=== PATIENT | female | born 1995 | race Caucasian/White ===

== ENCOUNTER 2020-03-13 12:29 | Emergency (ER) | payer MEDICAID, SELFPAY ==
[2020-03-13 12:31] VITALS: BP 119/76; PULSE 108; RESP 16; TEMP 36.2; O2SAT 98; BMI 28.3
--- NOTE | 2020-03-13 13:00 | RAD_ITS ---
STUDY: X-RAY CHEST REASON FOR EXAM: Female, 24 years old. COUGH SINCE YESTERDAY. CURRENT SMOKER. TECHNIQUE: Single AP portable view of the chest. COMPARISON: None. FINDINGS: The lungs are clear and expanded. There is no demonstrated pleural abnormality. Normal size heart. Normal mediastinum and farida. Normal visualized pulmonary arteries. Normal visualized aortic arch and descending thoracic aorta. Normal visualized thoracic spine. Normal visualized ribs, clavicles, and shoulders. There is no demonstrated abnormality of the visualized soft tissue structures of the upper abdomen. RAD/Chest 1 View (Portable) IMPRESSION: Normal x-ray examination of the chest. Pending Final Proof Editing
--- NOTE | 2020-03-13 13:11 | ED.VISSUMM ---
- ER Visit Summary Date of Service: 03/13/20 Chief Complaint: Cough History of Present Illness: The patient is a 24 F who presents with a cough that began yesterday. Patient states she is coughing up some yellow sputum. Patient admits to some general myalgias. Patient denies any fevers or chills. Patient states her foreign service officer told her to come to the emergency department to get checked out. Patient is not concerned about COVID-19. Patient denies any nausea or vomiting. Patient denies any chest pain or shortness of breath. Physical Examination: Vital signs are stable. Patient is afebrile. Patient is in no acute distress. Oral mucosa is pink and moist. Neck is supple. Trachea is midline. There is no JVD. Heart was regular rate and rhythm. Lungs showed rhonchi in the right base. There is good respiratory effort noted. Abdomen is soft. Bowel sounds are normal. There is no tenderness. Cranial nerves II through XII are intact. There are no focal motor or sensory deficits noted. Test Results: Portable chest x-ray was obtained. There is no acute cardiopulmonary process. This was interpreted by the radiologist and myself. Emergency Department Course and Treatment: Patient was advised that this is a viral upper respiratory infection. Patient was instructed to wear her mask covering her nose and mouth. Patient was instructed to follow-up with her primary care physician in 5 to 7 days. Patient was instructed drink plenty of fluids. Patient was instructed to take Tylenol or ibuprofen as needed for any fevers. Patient was instructed return if worse in any way. Patient understood and was agreeable with the plan. All questions were answered. Disposition: Discharge home Impression: Viral upper respiratory infection This note was generated with [employer] dictation software. It may contain incorrect words, spelling, and punctuation that were not noted in review of the chart prior to signing ED Disposition - Plan for ED Patient: Disposition: Home or Assisted Living Diagnosis: Viral upper respiratory tract infection with cough Instructions: ED URI Viral Referrals: Care Physician,No Primary [Primary Care Provider] -
--- NOTE | 2020-03-13 14:00 | ED.RN ---
per patient okay to fax excuse saying she was seen at [facility] to Nelda, chief security and safety officer at [phone].
== END 2020-03-13 13:59 | disposition home or self-care (01) ==
PROVIDERS: Emergency Provider Emergency Medicine
DX: J06.9 Acute upper respiratory infection, unspecified (principal); Z72.0 Tobacco use
CPT/HCPCS: 71045; 99282

== ENCOUNTER 2020-03-22 18:57 | Emergency (ER) | payer MEDICAID, SELFPAY ==
[2020-03-22 18:58] VITALS: BP 142/82; PULSE 121; RESP 16; TEMP 36.4; O2SAT 98; BMI 30.1
--- NOTE | 2020-03-22 19:23 | ED.VISSUMM ---
- ER Visit Summary Date of Service: 03/22/20 Chief Complaint: Eye redness History of Present Illness: The patient is a 24 F who presents with bilateral eye redness that is been getting worse over the past 2 days. Patient states both eyes are red. Patient admits to some burning and crusting. Patient denies any foreign body sensation. Patient denies any trauma or injury. Patient denies any visual changes. Patient states her crusting is worse when she wakes up in the morning. Patient wears glasses but does not wear contact lenses. Patient denies any discharge or drainage. Patient denies any swelling of the eyelids. Physical Examination: Vital signs are stable. Patient is afebrile. Patient is in no acute distress. Pupils are equal, round, and reactive to light bilaterally. Extraocular muscles are intact. Conjunctiva is injected bilaterally, slightly worse on the left. Funduscopic examination was benign. Oral mucosa is pink and moist. Neck is supple. Trachea is midline. There is no JVD. Heart was regular rate and rhythm. Lungs are clear and equal bilaterally. Cranial nerves II through XII are intact. There are no focal motor or sensory deficits noted. Emergency Department Course and Treatment: Patient was given a dose of gentamicin ophthalmic drops. The bottle was dispensed with the patient with instructions to apply 2 drops to both eyes every 4 hours while awake. Patient was instructed to wash her hands anytime she touches her eyes including when she puts her eyedrops in. Patient was instructed to follow-up with her primary care physician in 3 to 5 days. Patient understood and was agreeable with the plan. All questions were answered. Disposition: Discharge home Impression: Bilateral conjunctivitis This note was generated with [employer] dictation software. It may contain incorrect words, spelling, and punctuation that were not noted in review of the chart prior to signing ED Disposition - Plan for ED Patient: Disposition: Home or Assisted Living Diagnosis: Bilateral conjunctivitis Instructions: ED Conjunctivitis Nonspecific Referrals: Rodolfo Rey MD [NON-STAFF] - 3-5 Days
[2020-03-22] MEDS: Gentamicin Sulfate 1 OPTH.BTL 2 DRP EACH EYE (19:42)
== END 2020-03-22 19:48 | disposition home or self-care (01) ==
PROVIDERS: Emergency Provider Emergency Medicine
DX: H10.9 Unspecified conjunctivitis (principal); Z72.0 Tobacco use
CPT/HCPCS: 99282

== ENCOUNTER 2020-11-09 18:03 | Emergency (ER) | payer MEDICAID, SELFPAY ==
[2020-11-09 18:03] VITALS: BP 116/78; PULSE 100; RESP 15; TEMP 36.2; O2SAT 98; BMI 32.4
--- NOTE | 2020-11-09 18:20 | ED.VISSUMM ---
- ER Visit Summary Date of Service: 11/09/20 Chief Complaint: [Cough and cold symptoms] History of Present Illness: The patient is a 25 F [presents to the emergency department cough and cold symptoms that started about a week ago. Patient states that she is had a sore throat but that has since resolved. Currently she still has a cough that at times bringing up some clear phlegm. She has had no fever. 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 Patient states that she had a Covid exposure a month and a half ago and was tested and was negative. Patient denies any chest pain or shortness of breath. She denies loss of taste or smell. She denies headache or body aches. Patient has no medical history.] Physical Examination: [HEENT-PERRLA, EOMI. Cranial nerves II through XII grossly intact. TMs clear. Mucous membranes moist. No adenopathy. Cardiovascular-regular rate and rhythm without murmur or ectopy Lungs-clear to auscultation, chest wall stable without crepitus or subcu emphysema Abdomen-normoactive bowel sounds, soft, nontender, no rebound or rigidity, no peritoneal signs. Extremities-intact ?4, normal range of motion, normal pulses, atraumatic] Test Results: [COVID-19 testing PCR test ordered as she has had symptoms for more than 5 to 7 days.] Emergency Department Course and Treatment: [None] Treatment Plan: [Patient advised not to work and to quarantine until she gets her test results. Patient will be alerted on her cell phone of test result.] Disposition: [Discharged home in stable condition] Impression: [Viral URI-rule out COVID-19] This note was generated with [employer] dictation software. It may contain incorrect words, spelling, and punctuation that were not noted in review of the chart prior to signing ED Disposition - Plan for ED Patient: Referrals: Care Physician,No Primary [Primary Care Provider] -
--- NOTE | 2020-11-09 18:22 | ED.DEP ---
ED Disposition - Plan for ED Patient: Instructions: ED URI, Viral, No Abx (Adult) Referrals: Care Physician,No Primary [Primary Care Provider] -
[2020-11-09 18:24] VITALS: O2SAT 98
[2020-11-09 18:30] VITALS: BP 124/77; PULSE 68; RESP 15; O2SAT 99
== END 2020-11-09 18:43 | disposition home or self-care (01) ==
LOC: ED 18:35
PROVIDERS: Emergency Provider Emergency Medicine
DX: J06.9 Acute upper respiratory infection, unspecified (principal); Z72.0 Tobacco use
CPT/HCPCS: 87635; 99282; U0002

== ENCOUNTER 2021-03-10 20:52 | Emergency (ER) | payer MEDICAID, SELFPAY ==
[2020-11-19 17:38] VITALS: BMI 32.1
[2021-03-10 20:52] VITALS: BP 100/60; PULSE 54; RESP 17; TEMP 36.2; O2SAT 97; BMI 30.9
--- NOTE | 2021-03-10 22:27 | ED.VIS.DENTA ---
HPI History of Present Illness Chief Complaint: Dental Narrative Narrative: Patient presenting for evaluation secondary to dental pain. Patient reports that over the course last week she has been dealing with dental pain in her right maxillary jaw. Patient states that she went to urgent care the placed her on a course of Augmentin. She has been on that for about a course of a week, states that she continues to have some swelling in that area and pain on palpation. She denies any constitutional symptoms such as fever. No difficulty swallowing. No difficulty opening closing her mouth. States that this has been causing her to have significant anxiety. Patient is concerned that she potentially has an abscess. Review of systems otherwise negative. PFSH PFS Home Medications hydroxyzine HCl 25 mg tablet 25 mg PO BID PRN 11/19/20 [History Last Taken Unknown] clindamycin HCl 300 mg PO 4X/DAY #80 capsule 03/10/21 [Rx Last Taken Unknown] Allergy/AdvReac Type Severity Reaction Status Date / Time latex Allergy Hives Verified 03/10/21 20:55 shellfish derived Allergy Anaphylaxis Verified 03/10/21 20:55 Social History Smoking Status: Current every day smoker tobacco type: e-cigarettes ROS ROS ED Constitutional Constitutional ED: Denies fever(s) ENT ENT ED: Denies ear pain or sore throat Respiratory/Chest Respiratory/Chest: Denies cough Gastrointestinal Gastrointestinal: Denies nausea or vomiting Musculoskeletal Musculoskeletal: Denies neck pain Integumentary Denies rash Hematologic/Lymphatic Hematologic/Lymphatic: Denies easy bleeding or easy bruising EXAM Physical Exam Const Vital Signs: 03/10/21 20:52 Temperature 97.2 F L Temperature Source Temporal Pulse Rate 54 L Respiratory Rate 17 Blood Pressure 100/60 Blood Pressure Mean 73 Pulse Ox 97 Oxygen Delivery Method Room Air Positive well nourished and well developed General Appearance ED: well developed and NAD HEENT HEENT Narrative: Oropharynx is clear and moist, there is no evidence of trismus. Patient complains of pain over her right maxillary bicuspid. There is ever so slight of an area of swelling on the gums there, no obvious area of fluctuance. Patient has a soft sublingual space. Normal salivary ducts. No evidence of facial rashes. Eyes EOMs intact bilaterally Neck supple Resp normal respiratory effort Cardio regular rate Extremity normal to inspection Neuro oriented x3 Sensorium / Orientation: alert Skin no rashes or lesions noted MDM MDM MDM Narrative Medical decision making narrative: Patient presenting with persistent dental pain. At this point patient does not have an evidence of an obvious abscess. There is ever so slight of an area of swelling, but there does not appear to be any fluctuance. Patient at this point finished a course of Augmentin, I will put the patient on a course of clindamycin. Patient will be given the dental list for follow-up. Patient was discharged in stable condition. Discharge Plan Triage Chief Complaint: Dental ED Provider: Jayy Barrett Dx/Rx/DC Orders Clinical Impression: Pain, dental Instructions: ED Dental Pain Prescriptions: New clindamycin HCl 150 mg capsule 300 mg PO 4X/DAY Qty: 80 RF: 0 No Action hydroxyzine HCl 25 mg tablet 25 mg PO BID PRNRF: 0 Primary Care Provider: Care Physician,No Primary Referrals: Care Physician,No Primary [Primary Care Provider] - Activity Restrictions/Additional Instructions: Follow-up with a dentist as soon as possible Disposition Disposition: Home, Self Care
[2021-03-10] MEDS: Clindamycin HCl 150 MG Capsule 300 MG PO (22:44)
== END 2021-03-10 22:46 | disposition home or self-care (01) ==
PROVIDERS: Emergency Provider Emergency Medicine
DX: K08.89 Other specified disorders of teeth and supporting structures (principal); F17.290 Nicotine dependence, other tobacco product, uncomplicated
CPT/HCPCS: 99282

== ENCOUNTER 2021-12-23 20:25 | Emergency (ER) | payer MEDICAID, SELFPAY ==
[2021-12-23 20:27] VITALS: BP 109/74; PULSE 97; RESP 14; TEMP 36.2; O2SAT 97; BMI 20.5
--- NOTE | 2021-12-23 20:43 | ED.VIS.FEGU ---
HPI HPI - Female History of Present Illness Chief Complaint: Vag Bld, Preg Detail of Chief Complaint: Vaginal bleeding and Informant: patient Narrative Narrative: Patient presents the emergency department complaining of vaginal bleeding that she noticed this morning when she use the restroom. Patient states that she is and just recently found out. She is not sure how far along she has. She thinks she had a menstrual period last month. Patient is . Patient has had 1 miscarriage. She denies any abdominal pain. Patient states the blood in discharge became darker throughout the day and she is currently not bleeding at all. Prior similar symptoms: No PFSH PFSH Medical History (Updated 12/23/21 @ 22:[address] Mara Giraldo, DO) Lab test negative for COVID-19 virus Home Medications NK 12/23/21 [History Last Taken Unknown] Allergy/AdvReac Type Severity Reaction Status Date / Time latex Allergy Hives Verified 12/23/21 20:27 shellfish derived Allergy Anaphylaxis Verified 12/23/21 20:27 Social History Smoking Status: Current every day smoker tobacco type: e-cigarettes ROS ROS ED Constitutional Constitutional ED: Reports systems reviewed and no addt'l complaints, except as documented; Denies body ache(s), change in weight or chills Eyes Eyes: Denies acute decrease in peripheral vision, change in vision, double vision or loss of vision ENT ENT ED: Reports none; Denies ear pain, lip swelling, loss taste/smell, neck pain, otalgia or sore throat Cardiovascular Cardiovascular: Reports none; Denies abdominal pain, chest pain with activity, leg edema, lightheadedness, palpitations, rapid heart rate or syncope Respiratory/Chest Respiratory/Chest: Reports none; Denies change in mental status, dry cough, dyspnea, hemoptysis, shortness of breath at rest or shortness of breath with exertion Gastrointestinal Gastrointestinal: Reports none; Denies abdominal pain, change in stool character, diarrhea, hematemesis, hematochezia, melena, rectal bleeding or vomiting Genitourinary Genitourinary ED: Reports none and other Details: Vaginal bleeding ; Denies abdominal discomfort, anuria, dysuria, genital pain or polyuria Musculoskeletal Musculoskeletal: Reports none; Denies arthralgias, back pain, difficulty walking, extremity pain, muscle weakness or myalgias Integumentary Reports none; Denies abscess or rash Neurologic Neurologic: Reports none; Denies abnormal gait, confusion, focal weakness, frequent falls, headache(s), loss of vision, numbness, paresthesias, radicular pain, vertigo or weakness Psychiatric Psychiatric: Reports systems reviewed and no addt'l complaints, except as documented and none; Denies behavioral changes, confusion, difficulty concentrating, hallucinations, suicidal ideation, tactile hallucinations or visual hallucinations Endocrine Endocrinology: Denies none, cold intolerance, excessive sweating, fatigue or heat intolerance Hematologic/Lymphatic Hematologic/Lymphatic: Reports none; Denies anemia, easy bleeding or easy bruising Allergic/Immunologic Allergic/Immunologic ED: Denies as per HPI, none, lip swelling, mouth swelling, throat swelling, tongue swelling or hives EXAM Physical Exam Const Vital Signs: 12/23/21 20:27 Temperature 97.1 F L Temperature Source Temporal Pulse Rate 97 Respiratory Rate 14 Blood Pressure 109/74 Blood Pressure Mean 85 Pulse Ox 97 Oxygen Delivery Method Room Air Positive well nourished and well developed General Appearance ED: well developed and NAD HEENT Reports TM's clear and moist mucous membranes normocephalic and atraumatic; Negative for trauma or tenderness Tympanic Membrane ED: Yes TM's clear Eyes PERRL and EOMs intact bilaterally General Eye ED: Negative for pale conjunctiva or scleral icterus Neck no lymphadenopathy, supple and no JVD General: Negative for tenderness Chest Wall inspection of chest normal and palpation of chest normal Chest: Negative for tenderness Resp normal respiratory effort and clear to auscultation bilaterally Effort and Inspection: Negative for respiratory distress or pain with movement Auscultation: Negative for rhonchi, wheezes or diminished lung sounds Cardio regular rate, regular rhythm, S1 normal heart sound, S2 normal heart sound and no murmurs Peripheral Pulses: pulses 2+ throughout GI normal to inspection, nondistended, normoactive bowel sounds, soft to palpation, non-tender, non-distended and no masses Back/Spine no CVA tenderness and no thoracic nor lumbar tenderness Extremity normal to inspection General Extremety ED: Negative for edema General Extremity: Negative for edema Neuro oriented x3, CN's II-XII intact bilaterally, no sensory deficits noted and gait normal Sensorium / Orientation: awake, alert, oriented to person, oriented to place and oriented to time Motor Exam: strength 5/5 throughout and strength abnormal Psych mental status grossly normal Skin no rashes or lesions noted and no wounds MDM MDM MDM Narrative Medical decision making narrative: Established on arrival. Pelvic ultrasound obtained showed small saclike structure in the endometrium which likely represents early . Lab work otherwise unremarkable. I discussed case with information systems security developer covering for Dr. Kayla Mas who asked that patient call their office tomorrow to make a follow-up appointment and obtain a repeat quant. Patient advised to return if severe bleeding, worsening abdominal pain, or condition should worsen anyway. Patient is O+ will not require any RhoGAM. Lab Data Attestation: I reviewed the patient's lab results. Labs: Laboratory Results - last 24 hr 12/23/21 12/23/21 12/23/21 21:00 21:10 21:10 WBC 8.6 RBC 4.88 Hgb 14.2 Hct 44.0 MCV 90.2 MCH 29.1 MCHC 32.3 RDW Std Deviation 46.5 H RDW Coeff of Delilah 14.0 Plt Count 331 MPV 9.9 Immature Gran % (Auto) 0.100 Neut % (Auto) 51.7 Lymph % (Auto) 41.3 H [place] % (Auto) 5.6 Eos % (Auto) 1.0 Baso % (Auto) 0.3 Absolute Neuts (auto) 4.4 Absolute Lymphs (auto) 3.54 Nucleated RBC % 0 HCG, Quant 966 H Urine Color Yellow Urine Clarity Clear Urine pH 6.0 Ur Specific [place] 1.015 Urine Protein Negative Urine Glucose (UA) Normal Urine Ketones Negative Urine Occult Blood 50 H Urine Nitrite Negative Urine Bilirubin Negative Urine Urobilinogen Normal Ur Leukocyte Esterase 25 H Urine RBC 0 SEEN Urine WBC 0-5 SEEN Ur Squamous Epith Cells 0-5 SEEN Urine Bacteria 0 SEEN Urine Mucus 0 SEEN Blood Type 12/23/21 21:10 WBC RBC Hgb Hct MCV MCH MCHC RDW Std Deviation RDW Coeff of Delilah Plt Count MPV Immature Gran % (Auto) Neut % (Auto) Lymph % (Auto) [place] % (Auto) Eos % (Auto) Baso % (Auto) Absolute Neuts (auto) Absolute Lymphs (auto) Nucleated RBC % HCG, Quant Urine Color Urine Clarity Urine pH Ur Specific [place] Urine Protein Urine Glucose (UA) Urine Ketones Urine Occult Blood Urine Nitrite Urine Bilirubin Urine Urobilinogen Ur Leukocyte Esterase Urine RBC Urine WBC Ur Squamous Epith Cells Urine Bacteria Urine Mucus Blood Type O POSITIVE Radiography Diagnostic Testing: Clinical Impression(s) from Imaging Studies Obstetrics Ultrasound 12/23/21 21:39 IMPRESSION: Tiny saclike fluid collection within the fundal endometrial stripe, most likely representing an early intrauterine gestational sac. Continued follow-up is suggested as no yolk sac or pole is visualized at this early point in gestation; blighted ovum or pseudocyst sac of ectopic cannot be completely excluded. Simple left ovarian cyst. No paraovarian mass or hemoperitoneum identified. Electronically Signed: Hussain Steele MD at 22:21 EDT , Discharge Plan Triage Chief Complaint: Vag Bld, Preg ED Provider: Mara Giraldo Dx/Rx/DC Orders Clinical Impression: Threatened in first trimester, Vaginal bleeding Instructions: ED Possible Miscarriage ... Prescriptions: No Action NK RF: 0 Primary Care Provider: Care Physician,No Primary Referrals: Kayla Mas MD [STAFF PHYSICIAN] - 2 Days Care Physician,No Primary [Primary Care Provider] - Disposition Disposition: Home, Self Care
[2021-12-23 21:09] LABS: Bacteria 0 SEEN /hpf (None Seen); Mucous, Urine 0 SEEN /hpf (<or=2+); Red Blood Cells-Urine 0 SEEN /hpf (0-5)
[2021-12-23 21:13] LABS: Color, Urine Yellow (Yellow); Glucose, Dipstick Normal (Normal); Ketone-Dipstick Negative (Negative); Leukocyte Esterase-Dipstick 25 /ul (Negative); Nitrite-Dipstick Negative (Negative); Occult Blood-Urine 50 /ul (Negative); Protein-Dipstick Negative (Negative); Specific Gravity, Urine 1.015 (1.002-1.030); Urine Bilirubin Dipstick Negative (Negative); Urine Clarity Clear (Clear); Urine Urobilinogen Normal (Normal)
[2021-12-23 21:20] LABS: Absolute Lymphocyte Count 3.54 X10^3/uL (0.83-4.51); Absolute Neutrophil Count 4.4 X10^3/uL (2.0-7.7); Basophil# 0.03 X10^3/uL; Basophil% 0.3 % (0-1); Eosinophil# 0.09 X10^3/uL; Hemoglobin 14.2 g/dL (12.0-15.0); Lymphocyte # 3.54 X10^3/ul (0.83-4.51); Lymphocyte % 41.3 % (19-41); Mean Corp Hgb Conc 32.3 g/dL (32-36); Mean Corpuscular Hgb 29.1 pg (27.0-32.0); Mean Corpuscular Volume 90.2 fL (81-99); Mean Platelet Vol. 9.9 fl (6.2-12.0); Monocyte# 0.48 X10^3/uL; Monocyte% 5.6 % (0-10); NRBC Flagged by Analyzer 0 % (0-5); Neutrophil # 4.43 X10^3/uL (2.7-7.7); Neutrophil % 51.7 % (47-70); Platelet Count 331 K/mm3 (150-450); RBC Distribution Width SD 46.5 fl (35.1-43.9); Red Blood Count 4.88 M/mm3 (4.2-5.4); White Blood Count 8.6 K/mm3 (4.4-11.0)
[2021-12-23 21:21] LABS: Squamous Epithelial Cells - UA 0-5 SEEN /hpf (5-10); White Blood Cells 0-5 SEEN /hpf (0-5)
[2021-12-23 21:38] LABS: hCG Titer Quant., Serum 966 mIU/mL (1-3)
--- NOTE | 2021-12-23 21:39 | US_ITS ---
STUDY: FIRST TRIMESTER OBSTETRICAL ULTRASOUND REASON FOR EXAM: Female, 26 years old bleeding and TECHNIQUE: Transvaginal scanning, transabdominal imaging of the right ovary. TECHNICAL QUALITY: Adequate. PRIOR ULTRASOUND: None. FINDINGS: The uterus measures 8.2 cm in length.. There is no demonstrated uterine fibroid. The cervix is closed. Within the fundal endometrial stripe is a tiny ovoid saclike fluid collection measuring 3.3 x 2.3 x 2.7 mm in diameter, corresponding to gestational age of 4 weeks 6 days. No yolk sac or pole is visualized within this saclike structure. The right ovary measures 2.6 cm in length. There is no right ovarian cyst. Doppler flow noted within the right ovary. The left ovary measures 5.8 cm in length. Left ovary contains a 3.2 x 3.0 x 3.7 cm simple cyst. Doppler flow noted within the surrounding rim of ovarian tissue. There is no fluid in the cul de sac. No paraovarian mass is identified. US/Transvaginal w/Preg US IMPRESSION: Tiny saclike fluid collection within the fundal endometrial stripe, most likely representing an early intrauterine gestational sac. Continued follow-up is suggested as no yolk sac or pole is visualized at this early point in gestation; blighted ovum or pseudocyst sac of ectopic cannot be completely excluded. Simple left ovarian cyst. No paraovarian mass or hemoperitoneum identified. Electronically Signed: Hussain Steele MD at 22:21 EDT ,
[2021-12-23 22:45] VITALS: BP 109/74; PULSE 97; RESP 14; O2SAT 97
== END 2021-12-23 22:46 | disposition home or self-care (01) ==
PROVIDERS: Emergency Provider Emergency Medicine; Visit Provider Emergency Medicine
DX: O20.0 Threatened abortion (principal); O99.331 Smoking (tobacco) complicating pregnancy, first trimester; Z3A.01 Less than 8 weeks gestation of pregnancy; F17.210 Nicotine dependence, cigarettes, uncomplicated
CPT/HCPCS: 76817; 81001; 84702; 85025; 86900; 86901; 99282

== ENCOUNTER 2022-01-26 23:05 | Emergency (ER) | payer MEDICAID, SELFPAY ==
[2022-01-26 23:05] VITALS: BP 110/88; PULSE 80; RESP 16; TEMP 36.6; O2SAT 98; BMI 24.7
--- NOTE | 2022-01-26 23:34 | ED.VIS.GI ---
HPI HPI - GI History of Present Illness Chief Complaint: Nausea/Vomiting Informant: patient Abdominal Pain/Flank Pain Onset: Today Nausea/Vomiting/Emesis GI Symptom: Positive for Nausea Diarrhea/Melena/Hematochezia GI Symptom: Negative for Diarrhea, Melena and Hematochezia Associated Symptoms Associated Symptoms: Negative for Dysuria, Frequency and Hematuria Narrative Narrative: 26-year-old female currently is 10 weeks due date is August 23. She is G4, P2 Ab1. Today when she woke up she had nausea and vomiting. She has had that with this . She was unable to go to work and needs a work excuse. She denies any abdominal pain. No dysuria. No fever. Prior similar symptoms: Yes Recent Illness/Hospitalization: No PFSH PFSH Medical History Lab test negative for COVID-19 virus no medical history Home Medications metronidazole 500 mg PO BID 01/26/22 [History Last Taken Unknown] ondansetron HCl 4 mg PO Q8 PRN 01/26/22 [History Last Taken Unknown] Allergy/AdvReac Type Severity Reaction Status Date / Time latex Allergy Hives Verified 01/26/22 23:08 shellfish derived Allergy Anaphylaxis Verified 01/26/22 23:08 Surgical History no surgical history no surgical history Social History Smoking Status: Current every day smoker tobacco type: e-cigarettes ROS ROS ED ROS Narrative Nausea and vomiting. Review of Systems ROS Unobtainable: Denies due to encephalopathy Constitutional Constitutional ED: Denies fever(s) ENT ENT ED: Denies ear pain Cardiovascular Cardiovascular: Denies chest pain Respiratory/Chest Respiratory/Chest: Denies dyspnea Gastrointestinal Gastrointestinal: Reports nausea and vomiting; Denies abdominal pain, constipation, diarrhea or melena Genitourinary Genitourinary ED: Denies dysuria or hematuria Musculoskeletal Musculoskeletal: Denies myalgias Integumentary Denies rash Neurologic Neurologic: Denies headache(s) Psychiatric Psychiatric: Denies depression Endocrine Endocrinology: Denies polyuria Hematologic/Lymphatic Hematologic/Lymphatic: Denies easy bruising Allergic/Immunologic Allergic/Immunologic ED: Denies urticaria EXAM Physical Exam Narrative Exam Narrative: 26-year-old female no acute distress. Vital signs stable afebrile. H EENT exam normal. Moist with membranes. Lungs are clear. Heart regular rate and rhythm. Abdomen soft nondistended normal bowel sounds no peritoneal signs. Completely nontender. No hernia or mass. No obstruction. Moving all 4 extremities. Nontender no edema. Back nontender. Neurologically awake and alert. Normal exam. Const Vital Signs: 01/26/22 23:05 Temperature 98 F Temperature Source Temporal Pulse Rate 80 Respiratory Rate 16 Blood Pressure 110/88 H Blood Pressure Mean 95 Pulse Ox 98 Oxygen Delivery Method Room Air Positive well nourished and well developed; Negative for obese, cachectic, contractures or unkempt General Appearance ED: well developed and NAD; Negative for unkempt, cachectic, contractures or pallor Nutritional Appearance: Negative for cachectic or obese HEENT Reports moist mucous membranes normocephalic and atraumatic Eyes PERRL and EOMs intact bilaterally Neck no lymphadenopathy, supple and no JVD General: Negative for tenderness Resp normal respiratory effort and clear to auscultation bilaterally Auscultation: Negative for rales, rhonchi or wheezes Cardio regular rate, regular rhythm, S1 normal heart sound, S2 normal heart sound and no murmurs GI non-tender, non-distended and no masses Auscultation: normoactive bowel sounds Palpation: soft; Negative for tender, guarding, rigid or rebound tenderness present Back/Spine no CVA tenderness General Back: Negative for CVA tenderness Cervical Spine: Negative for cervical spine tenderness Thoracic Spine / Upper Back: Negative for thoracic spinal tenderness Extremity full ROM General Extremety ED: Negative for edema or tenderness General Extremity: Negative for edema Neuro moves all extremities Sensorium / Orientation: alert, oriented to person, oriented to place and oriented to time; Negative for confused, lethargic or stuporous Motor Exam: strength 5/5 throughout Psych mental status grossly normal and thought process normal Appearance: Negative for unkempt Mood & Affect: Negative for depressed, anxious or tearful Skin no wounds General Skin Exam: Negative for jaundice or pallor Lesions: no lesions Rashes: no rashes MDM MDM MDM Narrative Medical decision making narrative: 26-year-old female nausea vomiting in . Currently is not nauseated. Has no abdominal pain. Will be given a work excuse. She is already had an ultrasound showing a single live IUP through her OBs office. Discharge Plan Triage Chief Complaint: Nausea/Vomiting ED Provider: Ly,Kashif Dx/Rx/DC Orders Clinical Impression: Nausea & vomiting, related condition in first trimester Instructions: ED Vomiting (Adult) Prescriptions: No Action ondansetron HCl 4 mg tablet 4 mg PO Q8 PRN (Reason: Nausea) RF: 0 metronidazole 500 mg tablet 500 mg PO BID RF: 0 Primary Care Provider: Care Physician,No Primary Referrals: Kayla Mas MD [STAFF PHYSICIAN] - As Needed Care Physician,No Primary [Primary Care Provider] - Activity Restrictions/Additional Instructions: Plenty of fluids and rest. Use your Zofran as prescribed by your DENTURE LABORATORY TECHNICIAN physician as needed. Disposition Disposition: Home, Self Care
[2022-01-26 23:45] VITALS: BP 110/88; PULSE 80; RESP 16; O2SAT 98
== END 2022-01-26 23:46 | disposition home or self-care (01) ==
PROVIDERS: Emergency Provider Emergency Medicine; Visit Provider Emergency Medicine
DX: O26.891 Other specified pregnancy related conditions, first trimester (principal); R11.2 Nausea with vomiting, unspecified; Z3A.10 10 weeks gestation of pregnancy; O99.331 Smoking (tobacco) complicating pregnancy, first trimester; F17.290 Nicotine dependence, other tobacco product, uncomplicated
CPT/HCPCS: 99282

== ENCOUNTER 2022-02-27 12:25 | Emergency (ER) | payer MEDICAID, SELFPAY ==
[2022-02-27 12:27] VITALS: BP 109/68; PULSE 67; RESP 18; TEMP 36.3; O2SAT 100; BMI 26.9
--- NOTE | 2022-02-27 12:45 | EDS_ITS ---
HPI History of Present Illness Chief Complaint: Abd Pain Narrative Narrative: Patient is 15 weeks . She is complaining of abdominal cramping for 1 day. She has no back pain. She has no dysuria or hematuria. No frequency. She has no fevers or chills no upper abdominal pain. No diarrhea or constipation [facility] Medical History Lab test negative for COVID-19 virus Home Medications metronidazole 500 mg tablet 500 mg PO BID 01/26/22 [History Last Taken Unknown] ondansetron HCl 4 mg tablet 4 mg PO Q8 PRN Nausea 01/26/22 [History Last Taken Unknown] Allergy/AdvReac Type Severity Reaction Status Date / Time latex Allergy Hives Verified 02/27/22 12:30 shellfish derived Allergy Anaphylaxis Verified 02/27/22 12:30 Social History Smoking Status: Current every day smoker tobacco type: e-cigarettes ROS ROS ED ROS Narrative Past medical history: Reviewed Medications: Reviewed Social history: Noncontributory Review of systems: All systems negative except as indicated General: No fever Eyes: No visual changes ENT: No upper airway congestion, normal voice Neck: No neck pain Cardiovascular: No chest pain Respiratory: No shortness of breath or cough Gastrointestinal: As in HPI Genitourinary: No dysuria. No vaginal bleeding Musculoskeletal: Denies myalgias no difficulty with ambulation Skin: No rash Neurological: No memory loss, confusion or any focal weakness Psych: No recent behavioral changes Hematologic: No easy bleeding or easy bruising EXAM Physical Exam Narrative Exam Narrative: Physical exam General: Well nourished, Well developed, No Acute Distress Head: Normocephalic, Atraumatic Eyes: Conjunctiva not pale ENT: Moist mucous membranes Neck: Supple, Nontender, No lymphadenopathy Cardiovascular: Regular rate, Regular rhythm Respiratory: No distress, CTA bilaterally Abdomen: Soft, gravid with the uterus below the umbilicus. There is tenderness in the suprapubic region. No guarding or rebound. There is also some tenderness in both inguinal regions. : Deferred at this time. Back: Nontender, Normal Inspection. Negative for: CVA tenderness Extremities: Nontender, No edema Skin: Normal color, No rash Neurological: Alert, Normal Strength, Normal Sensation Psychological: Normal affect Const Vital Signs: 02/27/22 12:27 Temperature 97.4 F L Temperature Source Temporal Pulse Rate 67 Respiratory Rate 18 Blood Pressure 109/68 Blood Pressure Mean 81 Pulse Ox 100 Oxygen Delivery Method Room Air MDM MDM MDM Narrative Medical decision making narrative: A bedside ultrasound shows an intact fetus without any obvious abnormalities. heart rate is 143 done by me. Urinalysis is normal. Patient wants to be discharged. I believe this is reasonable. Lab Data Labs: Laboratory Results - last 24 hr 02/27/22 13:08 Urine Color Yellow Urine Clarity Clear Urine pH 6.0 Ur Specific [place] 1.020 Urine Protein Negative Urine Glucose (UA) Normal Urine Ketones Negative Urine Occult Blood Negative Urine Nitrite Negative Urine Bilirubin Negative Urine Urobilinogen Normal Ur Leukocyte Esterase Negative Urine RBC 0 SEEN Urine WBC 0 SEEN Ur Squamous Epith Cells 0 SEEN Urine Bacteria 0 SEEN Urine Mucus 0 SEEN Discharge Plan Triage Chief Complaint: Abd Pain ED Provider: Jones Hazel Dx/Rx/DC Orders Clinical Impression: Pelvic pain, Instructions: Abdominal Pain Prescriptions: No Action ondansetron HCl 4 mg tablet 4 mg PO Q8 PRN (Reason: Nausea) metronidazole 500 mg tablet 500 mg PO BID Primary Care Provider: Care Physician,No Primary Referrals: Care Physician,No Primary [Primary Care Provider] - 2 Days Disposition Disposition: Home, Self Care
[2022-02-27 13:14] LABS: Bacteria 0 SEEN /hpf (None Seen); Mucous, Urine 0 SEEN /hpf (<or=2+); Red Blood Cells-Urine 0 SEEN /hpf (0-5); Squamous Epithelial Cells - UA 0 SEEN /hpf (5-10); White Blood Cells 0 SEEN /hpf (0-5)
[2022-02-27 13:16] LABS: Color, Urine Yellow (Yellow); Glucose, Dipstick Normal (Normal); Ketone-Dipstick Negative (Negative); Leukocyte Esterase-Dipstick Negative /ul (Negative); Nitrite-Dipstick Negative (Negative); Occult Blood-Urine Negative /ul (Negative); Protein-Dipstick Negative (Negative); Urine Bilirubin Dipstick Negative (Negative); Urine Clarity Clear (Clear); Urine Urobilinogen Normal (Normal)
[2022-02-27 13:36] VITALS: BP 132/78; PULSE 78; RESP 14; TEMP 36.6; O2SAT 99
== END 2022-02-27 13:50 | disposition home or self-care (01) ==
PROVIDERS: Emergency Provider Emergency Medicine; Visit Provider Emergency Medicine
DX: O26.892 Other specified pregnancy related conditions, second trimester (principal); O99.332 Smoking (tobacco) complicating pregnancy, second trimester; R10.2 Pelvic and perineal pain; F17.290 Nicotine dependence, other tobacco product, uncomplicated; Z3A.15 15 weeks gestation of pregnancy
CPT/HCPCS: 81001; 99282

== ENCOUNTER 2022-05-07 23:02 | Emergency (ER) | payer MEDICAID, SELFPAY ==
[2022-05-07 23:03] VITALS: BP 118/80; PULSE 82; RESP 16; TEMP 36.9; O2SAT 98; BMI 31.1
[2022-05-07 23:07] VITALS: O2SAT 98
--- NOTE | 2022-05-07 23:17 | EDS_ITS ---
HPI History of Present Illness Chief Complaint: Shortness of Breath Informant: patient Onset/Context/Timing Onset: Days Context: gradual Timing: Continuous Worsened by: Nothing Relieved by: Nothing Associated Symptoms cough, ear pain, subjective and chills; Negative for rhinorrhea, post nasal drip, fever, sore throat, sweats, clear sputum, white sputum, yellow sputum or green sputum Chest Pain: Positive for Sharp Narrative Narrative: Patient presents with shortness of breath that has been getting worse over the past several days. Patient states she has some pain across her lower chest. Patient states it is worse with exhaling. Patient describes it as sharp. Patient admits to a cough but denies any sputum production. Patient denies any fevers. Patient admits to some subjective chills. Patient admits to some nausea and vomiting. Patient states she is 5-1/2 months . Patient denies any abdominal pain. Patient states nothing makes her breathing better and nothing makes it worse. [facility] Medical History Encounter for screening laboratory testing for COVID-19 virus Lab test negative for COVID-19 virus Home Medications metronidazole 500 mg tablet 500 mg PO BID 01/26/22 [History Last Taken Unknown] ondansetron HCl 4 mg tablet 4 mg PO Q8 PRN Nausea 01/26/22 [History Last Taken Unknown] Allergy/AdvReac Type Severity Reaction Status Date / Time latex Allergy Hives Verified 05/07/22 23:07 shellfish derived Allergy Anaphylaxis Verified 05/07/22 23:07 Surgical History no surgical history no surgical history Social History Smoking Status: Current every day smoker tobacco type: cigars and e-cigarettes ROS ROS ED Constitutional Constitutional ED: Denies chills or fever(s) Eyes Eyes: Denies blurry vision or change in vision ENT ENT ED: Denies rhinorrhea or sore throat Cardiovascular Cardiovascular: Reports chest pain; Denies palpitations Respiratory/Chest Respiratory/Chest: Reports cough and dyspnea Gastrointestinal Gastrointestinal: Reports nausea and vomiting Genitourinary Genitourinary ED: Denies dysuria or hematuria Musculoskeletal Musculoskeletal: Denies back pain or neck pain Integumentary Denies abscess or rash Neurologic Neurologic: Denies headache(s) or weakness Allergic/Immunologic Allergic/Immunologic ED: Denies mouth swelling or urticaria EXAM Physical Exam Const Vital Signs: 05/07/22 23:03 05/07/22 23:07 Temperature 98.4 F Temperature Source Oral Pulse Rate 82 Respiratory Rate 16 Respiratory Effort Normal Non-Labored Respiratory Depth Normal Respiratory Pattern Normal Blood Pressure 118/80 Blood Pressure Mean 92 Pulse Ox 98 Oxygen Delivery Method Room Air Room Air Positive well nourished and well developed General Appearance ED: well developed and NAD HEENT Reports moist mucous membranes Neck supple and no JVD Resp normal respiratory effort and clear to auscultation bilaterally Cardio regular rate and regular rhythm GI non-tender Palpation: soft Neuro oriented x3 and CN's II-XII intact bilaterally Psych mental status grossly normal MDM MDM MDM Narrative Medical decision making narrative: PA and lateral chest x-ray was obtained. There are 2 views. On my interpretation, lung hig[place] are clear. There is normal cardiac silhouette. Bony thorax is normal. There is no acute process noted. Radiologist also interpreted the x-ray and agrees. Patient was advised of her findings. Patient was advised that this is most likely a viral illness. Patient was instructed to follow-up with her primary care physician in 5 to 7 days. Patient was instructed to take Tylenol or ibuprofen as needed for any fevers. Patient understood and was agreeable with the plan. All questions were answered. Radiography Chest X-Ray - ED: 2 View, Read by ED Physician, Read by Radiologist and No Acute Disease Diagnostic Testing: Clinical Impression(s) from Imaging Studies Chest X-Ray 05/07/22 23:30 IMPRESSION: No acute cardiopulmonary disease. Electronically Signed: Jeanmarie Mon MD at 0:20 EDT , Discharge Plan Triage Chief Complaint: Shortness of Breath ED Provider: Richie Mendoza Dx/Rx/DC Orders Clinical Impression: Viral upper respiratory tract infection with cough, Instructions: ED URI, Viral, No Abx (Adult) Prescriptions: No Action ondansetron HCl 4 mg tablet 4 mg PO Q8 PRN (Reason: Nausea) metronidazole 500 mg tablet 500 mg PO BID Primary Care Provider: Care Physician,No Primary Referrals: Neil Mcginnis MD [Med Staff - [facility]] - 5-7 Days Care Physician,No Primary [Primary Care Provider] - Disposition Disposition: Home, Self Care
--- NOTE | 2022-05-07 23:30 | RAD_ITS ---
INDICATION: Cough -- Shield abdomen EXAMINATION/TECHNIQUE: X-RAY - XR Chest 2 Views COMPARISON: 03/13/2020 FINDINGS: LINES/DEVICES: None. LUNGS: 5 apical pleural/parenchymal scarring. No consolidation, edema or effusion. No pneumothorax. MEDIASTINUM AND CARDIOVASCULAR STRUCTURES: Cardiac silhouette not enlarged. Central airways and mediastinal contour are unremarkable. BONES AND SOFT TISSUES: Unremarkable. RAD/Chest PA and Lateral IMPRESSION: No acute cardiopulmonary disease. Electronically Signed: Jeanmarie Mon MD at 0:20 EDT ,
[2022-05-08 00:33] VITALS: PULSE 76; RESP 16; O2SAT 97
== END 2022-05-08 00:34 | disposition home or self-care (01) ==
PROVIDERS: Emergency Provider Emergency Medicine; Visit Provider Emergency Medicine
DX: O99.513 Diseases of the respiratory system complicating pregnancy, third trimester (principal); O99.891 Other specified diseases and conditions complicating pregnancy; O26.893 Other specified pregnancy related conditions, third trimester; J06.9 Acute upper respiratory infection, unspecified; H92.09 Otalgia, unspecified ear; R68.83 Chills (without fever); R06.02 Shortness of breath; R11.2 Nausea with vomiting, unspecified; F17.290 Nicotine dependence, other tobacco product, uncomplicated
CPT/HCPCS: 71046; 99282

== ENCOUNTER 2022-06-27 15:50 | Outpatient (CLI) | payer MEDICAID, SELFPAY ==
[2022-06-27 16:00] VITALS: BMI 30.9
[2022-06-27 16:10] VITALS: BP 112/59; PULSE 76; TEMP 36.6
[2022-06-27 16:51] LABS: Color, Urine Yellow (Yellow); Glucose, Dipstick Normal (Normal); Leukocyte Esterase-Dipstick 25 /ul (Negative); Nitrite-Dipstick Negative (Negative); Occult Blood-Urine Negative /ul (Negative); Protein-Dipstick Negative (Negative); Specific Gravity, Urine 1.025 (1.002-1.030); Urine Bilirubin Dipstick Negative (Negative); Urine Clarity Clear (Clear); Urine Urobilinogen Normal (Normal)
[2022-06-27 17:02] LABS: Ketone-Dipstick 150 mg/dl (Negative)
--- NOTE | 2022-06-27 19:00 | OB.TRI.HP_ITS ---
HPI - General HPI Narrative AIRAM PRICE, is a 27 F at 31.6 weeks gestation who presents to triage with feeling period cramps and sharp shooting pains that go into vagina. Denies contractions, loss of fluid or vaginal bleeding. Positive movement. She denies any dysuria or hematuria. Reports drinking tons of water and juice daily. History of labor with first that ended in a term delivery. Maternal Data Information CHANELL Calculator Estimated Delivery Date Method Current WG Current Estimate 08/23/22 Manual 31w 6d PFSH [facility] Medical History Encounter for screening laboratory testing for COVID-19 virus Lab test negative for COVID-19 virus Home Medications ondansetron HCl 4 mg tablet 4 mg PO Q8 PRN Nausea 01/26/22 [History Last Taken Unknown] PNV comb no.8-iron ps cmplx,aspgly-folic acid 22 mg-6 mg-1 mg tablet 1 tab PO DAILY prenancy 06/27/22 [History Last Taken 06/26/22] Allergy/AdvReac Type Severity Reaction Status Date / Time latex Allergy Hives Verified 05/07/22 23:07 shellfish derived Allergy Anaphylaxis Verified 05/07/22 23:07 Social History Smoking Status: Current every day smoker tobacco type: cigars and e-cigarettes History Elective abortions Hx Para 1 Spontaneous abortions Hx # Term Pregnancies Ectopic pregnancies Hx # Pregnancies Multiple births # of living children ROS Eyes Eyes: Denies blurry vision Cardiovascular Cardiovascular: Reports none; Denies chest pain at rest, chest pain with activity or dizziness Respiratory/Chest Respiratory/Chest: Denies cough or dyspnea Gastrointestinal Gastrointestinal: Reports none and other; Denies diarrhea or vomiting Genitourinary Genitourinary: Denies dysuria Musculoskeletal Musculoskeletal: Reports none Integumentary Integumentary: Reports none; Denies rash Neurologic Neurologic: Denies dizziness, headache(s) or other visual disturbances Psychiatric Psychiatric: Reports none Physical Exam Const alert and no apparent distress General Appearance: cooperative Orientation / Consciousness: awake Exam Limitations: no limitations HEENT normocephalic Eyes General Eye: normal appearance of both eyes Neck full ROM Chest inspection of chest normal Resp normal respiratory effort and normal air movement Effort and Inspection: symmetric chest movement Auscultation: clear to auscultation bilaterally Cardio regular rate GI soft to palpation, non-tender and non-distended Inspection: and other Back/Spine normal ROM Extremity full ROM, normal capillary refill and no calf tenderness Skin no rashes or lesions noted Neuro oriented x3 and CN's II-XII intact bilaterally Psych mental status grossly normal NST FHR Rate Baby A Baseline: 130 Variability:: Absent and Moderate Accelerations:: 15 x 15 Decelerations:: None NST Reactive:: Yes Uterine Activity:: None Assessment & Plan (1) Pelvic cramping: (2) Round ligament pain: (3) 31 weeks gestation of : (4) History of labor: PLAN: Plan NST reactive- No contractions noted or palpated UA sent- + for ketones and Leukocyte estrace Patient offered IV fluids for suspected dehydration- refused D/C home with follow up in office Reviewed importance of hydration PTL and kick counts reviewed Dr. Mas notified
== END 2022-06-27 17:17 | disposition home or self-care (01) ==
LOC: WPOUT 15:53 → WP 15:53
PROVIDERS: Visit Provider Advanced Practice Midwife
DX: O26.893 Other specified pregnancy related conditions, third trimester (principal); R10.2 Pelvic and perineal pain; O99.333 Smoking (tobacco) complicating pregnancy, third trimester; O09.10 Supervision of pregnancy with history of ectopic pregnancy, unspecified trimester; Z3A.31 31 weeks gestation of pregnancy; F17.290 Nicotine dependence, other tobacco product, uncomplicated
CPT/HCPCS: 59025; 59050; 81002; 99218; G0378

== ENCOUNTER 2022-08-05 06:35 | Inpatient (IN) | payer MEDICAID, SELFPAY ==
[2022-08-05] VITALS (75 sets, daily range): BP systolic 79–140; BP diastolic 44–83; PULSE 68–129; TEMP 35.9–37.9; O2SAT 91–100; BMI 32.4
[2022-08-05] MEDS: Lactated Ringers 1,000 ML 200 ML IV ×2 (07:50→20:26)
[2022-08-05] MEDS: Oxytocin 15 Units/NS 250ml 15 UNITS/250 ML IV.SOLN 2 UNITS IV (08:03)
[2022-08-05 08:05] LABS: Absolute Lymphocyte Count 2.33 X10^3/uL (0.83-4.51); Absolute Neutrophil Count 5.5 X10^3/uL (2.0-7.7); Basophil# 0.01 X10^3/uL; Basophil% 0.1 % (0-1); Eosinophil# 0.04 X10^3/uL; Eosinophils% 0.5 % (0-5); Hematocrit 36.8 % (37-47); Hemoglobin 12.1 g/dL (12.0-15.0); Lymphocyte # 2.33 X10^3/ul (0.83-4.51); Lymphocyte % 27.2 % (19-41); Mean Corp Hgb Conc 32.9 g/dL (32-36); Mean Corpuscular Hgb 29.8 pg (27.0-32.0); Mean Corpuscular Volume 90.6 fL (81-99); Mean Platelet Vol. 10.6 fl (6.2-12.0); Monocyte# 0.67 X10^3/uL; Monocyte% 7.8 % (0-10); NRBC Flagged by Analyzer 0 % (0-5); Neutrophil # 5.49 X10^3/uL (2.7-7.7); Neutrophil % 63.9 % (47-70); Platelet Count 251 K/mm3 (150-450); RBC Distribution Width CV 12.8 % (11.6-14.6); RBC Distribution Width SD 42.8 fl (35.1-43.9); Red Blood Count 4.06 M/mm3 (4.2-5.4); White Blood Count 8.6 K/mm3 (4.4-11.0)
[2022-08-05] MEDS: 0.9% Normal Saline Single 100 ML IV.SOLN. INTRA-UTER (08:34)
[2022-08-05 10:23] LABS: Amphetamine Urine VISTA NEGATIVE (<1000 ng/mL); Barbiturate Urine VISTA NEGATIVE (< 200 ng/mL); Benzodiazepine Urine VISTA NEGATIVE (< 200 ng/mL); Cocaine Urine VISTA NEGATIVE (< 300 ng/mL); Ecstacy Urine VISTA NEGATIVE (< 500 ng/mL); Methadone Urine VISTA NEGATIVE (< 300 ng/mL); PCP Urine VISTA NEGATIVE (< 25 ng/mL); THC Urine VISTA NEGATIVE (< 50 ng/mL); Vista UDS pH Range 6
[2022-08-05] MEDS: LACTATED RINGERS 500 ML 999 ML IV ×3 (11:50→19:55)
[2022-08-05] MEDS: fentaNYL-bupivacaine (epidural) 100 ML BAG EPIDURAL ×2 (13:32→19:55)
[2022-08-05] MEDS: Acetaminophen 500 MG Tablet PO (18:34)
[2022-08-05] MEDS: Ondansetron 4 MG/2 ML Vial IV (19:01)
--- NOTE | 2022-08-05 22:43 | PCM.HP.OB ---
HPI - General General Date of Admission: 08/05/22 Date of Service: 08/05/22 Chief Complaint: induction of labor HPI Narrative AIRAM PRICE, is a 27-year-old 5 para 2-0-2-2 with an EDC of 08/23/2022 who presents for induction of labor due to anti-Bega E antibody titer that is 1-16. Maternal- medicine recommended early term induction. She denied any gross vaginal bleeding or leaking of fluid. She is had good movement. has been complicated to date by hepatitis C chronic, history of HSV infection, drug use disorder in treatment, tobacco use, trichomonas infection and gonorrhea. Gonorrhea and trichomonas were treated and resolved. She also has a history of depression. Maternal Data Information CHANELL Calculator Estimated Delivery Date Method Current WG Current Estimate 08/23/22 Manual 37w 3d Final CHANELL: 08/23/22 Gestational age: 37 3/7 [facility] Medical History (Updated 08/05/22 @ 22:[address] Kayla Mas MD) Anxiety Chlamydia infection affecting Encounter for screening laboratory testing for COVID-19 virus Genital herpes affecting Gonorrhea affecting Hepatitis HPV (human papilloma virus) infection Lab test negative for COVID-19 virus MRSA infection Home Medications PNV comb no.8-iron ps cmplx,aspgly-folic acid 22 mg-6 mg-1 mg tablet 1 tab PO DAILY prenancy 06/27/22 [History Last Taken 08/04/22 12:00] Allergy/AdvReac Type Severity Reaction Status Date / Time latex Allergy Hives Verified 08/05/22 07:19 shellfish derived Allergy Anaphylaxis Verified 08/05/22 07:19 Social History Smoking Status: Current every day smoker tobacco type: cigars and e-cigarettes History Elective abortions Hx Para 2 Spontaneous abortions Hx # Term Pregnancies Ectopic pregnancies Hx # Pregnancies Multiple births # of living children ROS Constitutional Constitutional: Denies fatigue, fever(s) or malaise Eyes Eyes: Denies change in vision ENT HEENT: Denies dizziness or headache(s) Cardiovascular Cardiovascular: Denies chest pain, dyspnea or lightheadedness Respiratory/Chest Respiratory/Chest: Denies cough or dyspnea Gastrointestinal Gastrointestinal: Denies change in bowel habits Genitourinary Genitourinary: Denies burning urination or genital lesions Integumentary Integumentary: Denies rash Neurologic Neurologic: Denies confusion, dizziness, headache(s), numbness or weakness Vital Signs Vital Signs Vital Signs: 08/05/22 07:14 08/05/22 07:14 08/05/22 07:14 Temperature Temperature Source Temporal Pulse Rate 121 H Blood Pressure 106/70 BP Systolic 106 BP Diastolic 70 Pulse Ox 08/05/22 07:14 08/05/22 07:14 08/05/22 07:14 Temperature 97.2 F L Temperature Source Pulse Rate 121 H Blood Pressure 106/70 BP Systolic 106 BP Diastolic 70 Pulse Ox 08/05/22 10:09 08/05/22 10:09 08/05/22 10:10 Temperature Temperature Source Temporal Pulse Rate 82 Blood Pressure 110/68 BP Systolic 110 BP Diastolic 68 Pulse Ox 08/05/22 10:10 08/05/22 10:10 08/05/22 10:10 Temperature 97.0 F L Temperature Source Pulse Rate 90 Blood Pressure BP Systolic BP Diastolic Pulse Ox 98 08/05/22 12:15 08/05/22 12:15 08/05/22 12:14 Temperature Temperature Source Pulse Rate 92 Blood Pressure 140/75 H BP Systolic 140 BP Diastolic 75 Pulse Ox 91 08/05/22 12:22 08/05/22 12:22 08/05/22 12:27 Temperature Temperature Source Pulse Rate 91 93 Blood Pressure BP Systolic BP Diastolic Pulse Ox 100 08/05/22 12:27 08/05/22 12:32 08/05/22 12:32 Temperature Temperature Source Pulse Rate 99 Blood Pressure BP Systolic BP Diastolic Pulse Ox 99 98 08/05/22 12:37 08/05/22 12:37 08/05/22 12:40 Temperature Temperature Source Pulse Rate 108 H Blood Pressure 123/83 H BP Systolic 123 BP Diastolic 83 Pulse Ox 100 08/05/22 12:40 08/05/22 12:42 08/05/22 12:42 Temperature Temperature Source Pulse Rate 102 H 112 H Blood Pressure BP Systolic BP Diastolic Pulse Ox 100 08/05/22 12:46 08/05/22 12:46 08/05/22 12:47 Temperature Temperature Source Pulse Rate 102 H 103 H Blood Pressure 118/63 BP Systolic 118 BP Diastolic 63 Pulse Ox 08/05/22 12:47 08/05/22 12:51 08/05/22 12:51 Temperature Temperature Source Pulse Rate 125 H Blood Pressure 113/63 BP Systolic 113 BP Diastolic 63 Pulse Ox 99 08/05/22 12:52 08/05/22 12:52 08/05/22 12:50 Temperature Temperature Source Temporal Pulse Rate 111 H Blood Pressure BP Systolic BP Diastolic Pulse Ox 98 08/05/22 12:50 08/05/22 12:50 08/05/22 12:50 Temperature 97.3 F L Temperature Source Pulse Rate 107 H Blood Pressure BP Systolic BP Diastolic Pulse Ox 99 08/05/22 12:56 08/05/22 12:56 08/05/22 12:55 Temperature Temperature Source Pulse Rate 113 H Blood Pressure 111/57 L BP Systolic 111 BP Diastolic 57 Pulse Ox 99 08/05/22 12:57 08/05/22 12:57 08/05/22 13:01 Temperature Temperature Source Pulse Rate 103 H Blood Pressure 94/59 L BP Systolic 94 BP Diastolic 59 Pulse Ox 98 08/05/22 13:01 08/05/22 13:02 08/05/22 13:02 Temperature Temperature Source Pulse Rate 129 H 101 H Blood Pressure BP Systolic BP Diastolic Pulse Ox 99 08/05/22 13:05 08/05/22 13:06 08/05/22 13:06 Temperature Temperature Source Pulse Rate 97 Blood Pressure 109/57 L BP Systolic 109 BP Diastolic 57 Pulse Ox 97 08/05/22 13:07 08/05/22 13:07 08/05/22 13:14 Temperature Temperature Source Pulse Rate 119 H Blood Pressure 91/54 L BP Systolic 91 BP Diastolic 54 Pulse Ox 98 08/05/22 13:14 08/05/22 13:13 08/05/22 13:16 Temperature Temperature Source Pulse Rate 83 Blood Pressure 93/61 BP Systolic 93 BP Diastolic 61 Pulse Ox 99 08/05/22 13:16 08/05/22 13:18 08/05/22 13:18 Temperature Temperature Source Pulse Rate 68 70 Blood Pressure BP Systolic BP Diastolic Pulse Ox 99 08/05/22 13:21 08/05/22 13:21 08/05/22 13:23 Temperature Temperature Source Pulse Rate 82 86 Blood Pressure 106/62 BP Systolic 106 BP Diastolic 62 Pulse Ox 08/05/22 13:23 08/05/22 13:25 08/05/22 13:25 Temperature Temperature Source Pulse Rate 90 Blood Pressure 106/61 BP Systolic 106 BP Diastolic 61 Pulse Ox 99 08/05/22 13:28 08/05/22 13:28 08/05/22 13:32 Temperature Temperature Source Pulse Rate 77 Blood Pressure 113/60 BP Systolic 113 BP Diastolic 60 Pulse Ox 100 08/05/22 13:32 08/05/22 13:33 08/05/22 13:33 Temperature Temperature Source Pulse Rate 113 H 95 Blood Pressure BP Systolic BP Diastolic Pulse Ox 99 08/05/22 13:36 08/05/22 13:36 08/05/22 14:09 Temperature Temperature Source Pulse Rate 85 Blood Pressure 113/65 114/67 BP Systolic 113 114 BP Diastolic 65 67 Pulse Ox 08/05/22 14:09 08/05/22 14:39 08/05/22 14:39 Temperature Temperature Source Pulse Rate 113 H 129 H Blood Pressure 120/83 H BP Systolic 120 BP Diastolic 83 Pulse Ox 08/05/22 15:10 08/05/22 15:10 08/05/22 15:18 Temperature Temperature Source Temporal Pulse Rate 100 Blood Pressure 119/67 BP Systolic 119 BP Diastolic 67 Pulse Ox 08/05/22 15:18 08/05/22 15:40 08/05/22 15:40 Temperature 97.3 F L Temperature Source Pulse Rate 104 H Blood Pressure 106/64 BP Systolic 106 BP Diastolic 64 Pulse Ox 08/05/22 16:17 08/05/22 16:17 08/05/22 16:49 Temperature 97.2 F L Temperature Source Pulse Rate 82 Blood Pressure 104/59 L BP Systolic 104 BP Diastolic 59 Pulse Ox 08/05/22 16:49 08/05/22 17:10 08/05/22 17:10 Temperature 97.2 F L Temperature Source Temporal Temporal Pulse Rate Blood Pressure BP Systolic BP Diastolic Pulse Ox 08/05/22 18:00 08/05/22 18:00 08/05/22 18:25 Temperature 99.0 F Temperature Source Temporal Pulse Rate Blood Pressure 130/51 H BP Systolic 130 BP Diastolic 51 Pulse Ox 08/05/22 18:25 08/05/22 18:23 08/05/22 18:25 Temperature 98.8 F Temperature Source Oral Pulse Rate 93 Blood Pressure BP Systolic BP Diastolic Pulse Ox 08/05/22 18:25 08/05/22 19:00 08/05/22 19:47 Temperature 100.2 F H 98.2 F Temperature Source Pulse Rate 86 Blood Pressure BP Systolic BP Diastolic Pulse Ox 08/05/22 19:47 08/05/22 19:49 08/05/22 19:49 Temperature Temperature Source Pulse Rate 99 Blood Pressure 79/44 L BP Systolic 79 BP Diastolic 44 Pulse Ox 96 08/05/22 19:50 08/05/22 19:50 08/05/22 20:11 Temperature 99.0 F Temperature Source Temporal Pulse Rate Blood Pressure 90/55 L BP Systolic 90 BP Diastolic 55 Pulse Ox 08/05/22 20:11 08/05/22 20:35 08/05/22 20:35 Temperature Temperature Source Temporal Pulse Rate 86 Blood Pressure 97/52 L BP Systolic 97 BP Diastolic 52 Pulse Ox 08/05/22 20:35 08/05/22 20:35 08/05/22 20:35 Temperature 97.3 F L Temperature Source Pulse Rate 82 Blood Pressure BP Systolic BP Diastolic Pulse Ox 96 08/05/22 21:21 08/05/22 21:22 08/05/22 21:22 Temperature Temperature Source Temporal Pulse Rate 96 Blood Pressure 116/56 L BP Systolic 116 BP Diastolic 56 Pulse Ox 08/05/22 21:21 08/05/22 21:23 08/05/22 21:23 Temperature 96.7 F L Temperature Source Pulse Rate 96 Blood Pressure BP Systolic BP Diastolic Pulse Ox 98 08/05/22 22:04 08/05/22 22:04 08/05/22 22:06 Temperature 97.8 F Temperature Source Temporal Pulse Rate Blood Pressure 100/55 L BP Systolic 100 BP Diastolic 55 Pulse Ox 08/05/22 22:06 08/05/22 22:07 08/05/22 22:07 Temperature Temperature Source Pulse Rate 121 H 96 Blood Pressure BP Systolic BP Diastolic Pulse Ox 100 08/05/22 22:41 08/05/22 22:41 08/05/22 22:40 Temperature Temperature Source Pulse Rate 95 Blood Pressure 101/59 L BP Systolic 101 BP Diastolic 59 Pulse Ox 95 Weight Weight: 83.007 kg Body Mass Index (BMI) 32.4 Physical Exam Narrative External genitalia vagina and vulva intact without lesions Const alert and no apparent distress General Appearance: cooperative HEENT normocephalic Resp normal respiratory effort Cardio regular rate GI soft to palpation GI Narrative: gravid, nontender, appropriate for gestational age Extremity no calf tenderness General Extremity: edema Skin no wounds Rashes: No rashes noted Psych activity/motor behavior normal Labs Labs Labs: Blood Type O POSITIVE Antibody Screen POSITIVE H Hct 36.8 % (37-47) L Hgb 12.1 g/dL (12.0-15.0) Obstetrics US Rubella IgG Antibody 37.7 IU/mL Hep Bs Antigen Negative (Negative) Rhogam given: No Assessment & Plan (1) 37 weeks gestation of : PLAN: Risk benefits and alternatives to early term induction were discussed with patient, questions were answered to her satisfaction she desires to proceed. Risk benefits and alternatives to Goncalves with Pitocin and artificial rupture membranes were reviewed. Nursery made aware of the patient risk factors. History of HSV, no symptoms or signs of infection at this time. Estimated weight is less than 4000 g clinically and pelvis clinically adequate to expect vaginal delivery. Goncalves catheter was placed over the cervix in the usual sterile fashion with a stylette. Balloon was inflated to 30 cc. Placement over internal os confirmed. Patient and fetus tolerated the procedure well. 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
--- NOTE | 2022-08-05 22:50 | EX.PCM.OBRPT ---
Assessment & Plan (1) (spontaneous vaginal delivery): Maternal Data Information CHANELL Calculator Estimated Delivery Date Method Current WG Current Estimate 08/23/22 Manual 37w 3d Final CHANELL: 08/23/22 Final CHANELL Source: US <20 weeks Gestational age: 37 3/7 Vaginal Delivery Maternal Presentation Maternal Presentation: Medically Indicated Induction Type of Induction: Pitocin, Goncalves Bulb and Amniotomy Operative Information Date of Procedure: 08/05/22 Pre-Operative Diagnosis: labor Post-Operative Diagnosis: same Surgery / Procedure Performed: Spontaneous Vaginal Delivery Type of Anesthesia: Epidural Special Medications: none Drain: Goncalves to straight drain Estimated Blood Loss: 300 Time of Delivery: 22:28 Findings Description of Procedure: A vigorous male was delivered ROBI over an intact perineum. A loose nuchal cord ?1 was easily reduced. The remainder the infant was delivered with maternal pushing and gentle traction only in less than 15 seconds. The Pitocin infusion was initiated for active management of the third stage. The cord was clamped and cut after 1 minute. The infant was attended to by the waiting nursing staff. The placenta was delivered spontaneously and intact. The cervix and vagina were intact. Sponge and needle counts were correct. A vaginal sweep was completed by me.. Presentation: ROBI Amniotic Membrane Rupture Type: Spontaneous Amniotic Fluid Description: Clear Placental Delivery Description: Spontaneous Placenta Disposition: [facility] Cord Vessel Description: 3 Vessels Cord Entanglement: Around neck x 1, loose Nuchal Cord Compression: Without compression A Gender: Male (1 minute): 9 (5 minute): 9 Delayed Cord Clamping: Yes Post Vaginal Delivery Medications Given After Delivery: IV Pitocin Episiotomy Description: None Laceration: None Complication Complications: None
[2022-08-05] MEDS: 0.9% Saline Lock 10 ML Syringe IV (22:59)
[2022-08-06] VITALS (17 sets, daily range): BP systolic 102–125; BP diastolic 58–75; PULSE 61–136; RESP 16–18; TEMP 36.1–36.7; O2SAT 96–99
[2022-08-06] MEDS: Ibuprofen 600 MG Tablet PO ×2 (05:08→12:52)
[2022-08-06] MEDS: Acetaminophen 500 MG Tablet 1000 MG PO (08:31)
--- NOTE | 2022-08-06 08:34 | PCM.PN.OB ---
Subjective Subjective Patient seen at bedside. Up ambulating in room. Voiding without difficulty. Denies headache, vision changes, SOB, or CP. Bottle feeding. Desires discharge home tomorrow. Objective Data Objective Data Vital Signs: Vital Signs Temp Pulse Resp BP Pulse Ox O2 Del Method 97.2 F L 61 18 113/70 98 Room Air 08/06/22 04:48 08/06/22 04:51 08/06/22 04:48 08/06/22 04:51 08/06/22 04:51 08/06/22 04:48 Oxygen Delivery Method Room Air Weight: 183 lb Body Mass Index (BMI) 32.4 Intake & Output: Intake and Output for Last 24 Hours 08/04/22 08/05/22 08/06/22 23:59 23:59 23:59 Intake Total 3039.30 / 3039.30 Output Total 1400 / 1400 2200 / 2200 Balance 1639.30 / 1639.30 -2200 / -2200 Lab / Micro Data Result Diagrams: 08/05/22 07:50 Labs: Laboratory Results - last 24 hr 08/05/22 07:50: Blood Type O POSITIVE, Antibody Screen POSITIVE H, Antibody Identification ANTI-E, Crossmatch See Detail 08/05/22 09:50: Urine Opiates Screen NEGATIVE, Urine Methadone Screen NEGATIVE, Ur Barbiturates Screen NEGATIVE, Ur Phencyclidine Scrn NEGATIVE, Ur Amphetamines Screen NEGATIVE, MDMA (Ecstasy) Screen NEGATIVE, U Benzodiazepines Scrn NEGATIVE, Urine Cocaine Screen NEGATIVE, U Cannabinoids Screen NEGATIVE, Ur Drug Screen Comment ROS Eyes Eyes: Denies blurry vision, change in vision or spots in vision ENT HEENT: Denies dizziness or headache(s) Cardiovascular Cardiovascular: Denies abdominal pain, chest pain or dyspnea Respiratory/Chest Respiratory/Chest: Denies cough, dyspnea, shortness of breath at rest or shortness of breath with exertion Gastrointestinal Gastrointestinal: Denies abdominal pain, diarrhea or vomiting Genitourinary Genitourinary: Denies change in urinary stream, difficulty urinating or dysuria Musculoskeletal Musculoskeletal: Reports none Integumentary Integumentary: Denies rash Neurologic Neurologic: Denies dizziness, headache(s), memory loss or weakness Physical Exam Const alert and no apparent distress General Appearance: cooperative and comfortable Exam Limitations: no limitations HEENT normocephalic Eyes General Eye: normal appearance of both eyes Neck full ROM General: normal visual inspection Chest Chest: symmetrical chest wall rise Resp normal respiratory effort and normal air movement Effort and Inspection: symmetric chest movement Auscultation: clear to auscultation bilaterally Cardio regular rate and regular rhythm GI normal to inspection, nondistended, normoactive bowel sounds Back/Spine normal ROM Extremity full ROM and no calf tenderness General Extremity: normal exam except as noted Skin no rashes or lesions noted Neuro CN's II-XII intact bilaterally Psych mental status grossly normal Assessment & Plan (1) (spontaneous vaginal delivery): (2) Hepatitis C, chronic, maternal, antepartum: (3) 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
[2022-08-07 02:17] VITALS: BP 102/59; PULSE 62; RESP 16; TEMP 36.1; O2SAT 94
--- NOTE | 2022-08-07 06:55 | PCM.PN.OB ---
Subjective Subjective Patient seen at bedside. Feeling good. Voicing no needs or concerns. Bottle feeding . Ambulating and voiding without difficulty. Desires discharge home today. Objective Data Objective Data Vital Signs: Vital Signs Temp Pulse Resp BP Pulse Ox O2 Del Method 97 F L 62 16 102/59 L 94 Room Air 08/07/22 02:17 08/07/22 02:17 08/07/22 02:17 08/07/22 02:17 08/07/22 02:17 08/07/22 02:17 Oxygen Delivery Method Room Air Weight: 183 lb Body Mass Index (BMI) 32.4 Intake & Output: Intake and Output for Last 24 Hours 08/05/22 08/06/22 08/07/22 23:59 23:59 23:59 Intake Total 3039.30 / 3039.30 Output Total 1400 / 1400 2500 / 2500 Balance 1639.30 / 1639.30 -2500 / -2500 Lab / Micro Data Result Diagrams: 08/05/22 07:50 ROS Eyes Eyes: Denies blurry vision, change in vision or spots in vision ENT HEENT: Denies dizziness or headache(s) Cardiovascular Cardiovascular: Denies abdominal pain, chest pain or dyspnea Respiratory/Chest Respiratory/Chest: Denies cough, dyspnea, shortness of breath at rest or shortness of breath with exertion Gastrointestinal Gastrointestinal: Denies abdominal pain, diarrhea or vomiting Genitourinary Genitourinary: Denies change in urinary stream, difficulty urinating or dysuria Musculoskeletal Musculoskeletal: Reports none Integumentary Integumentary: Denies rash Neurologic Neurologic: Denies dizziness, headache(s), memory loss or weakness Physical Exam Const alert and no apparent distress General Appearance: cooperative and comfortable Exam Limitations: no limitations HEENT normocephalic Eyes General Eye: normal appearance of both eyes Neck full ROM General: normal visual inspection Chest Chest: symmetrical chest wall rise Resp normal respiratory effort and normal air movement Effort and Inspection: symmetric chest movement Auscultation: clear to auscultation bilaterally Cardio regular rate and regular rhythm GI normal to inspection, nondistended, normoactive bowel sounds Back/Spine normal ROM Extremity full ROM and no calf tenderness General Extremity: normal exam except as noted Skin no rashes or lesions noted Neuro CN's II-XII intact bilaterally Psych mental status grossly normal Assessment & Plan (1) Hepatitis C, chronic, maternal, antepartum: PLAN: Plan PPD 2 Routine care D/C home with follow up in office
--- NOTE | 2022-08-07 07:02 | DCINST_ITS ---
Discharge Instructions Diet Discharge Diet: No restrictions Activity Discharge Activity: Return to Normal Activity, May Shower and May Take a Tub Bath May resume sexual activity in: 4-6 weeks Weight Bearing Status: Weight bearing as tolerated Dressing / Incision Call your doctor if you observe: Inability to urinate, Using more than 1 pad per hour, Shortness of breath, Dizziness, Swelling in the ankles, Chest pain, Calf discomfort and Uncontrolled pain Follow Up Care Please Follow Up With: Kayla Mas MD When: Within 10 days Test Results: Test results from this visit will be discussed in further detail at your follow- up appointment, if applicable. Discharge Plan Admission Admit Date/Time: 08/05/22 06:35 Primary Reason for Your Visit: Labor and Delivery Attending Provider: Kayla Mas Primary Care Provider: Care Physician,Abena Primary Discharge Orders/Prescriptions Prescriptions: No Action PNV #8-iron ps cmp,aspgl-folic 22-6-1 mg Tablet 1 tab PO DAILY Referrals / Follow Up: Care Physician,No Primary [Primary Care Provider] - Disposition Disposition (needs filled in before D/C Order can be placed): Home, Self Care
[2022-08-07] MEDS: Ibuprofen 600 MG Tablet PO (08:33)
[2022-08-07 08:35] VITALS: BP 96/55; PULSE 71; RESP 18; TEMP 35.7
[2022-08-07] MEDS: Acetaminophen 500 MG Tablet 1000 MG PO (10:29)
[2022-08-07 13:39] VITALS: BP 112/64; PULSE 91; RESP 18; TEMP 35.6
== END 2022-08-07 13:45 | disposition home or self-care (01) | DRG 560 ==
PROVIDERS: Admitting Provider Obstetrics & Gynecology; Visit Provider Obstetrics & Gynecology
DX: O36.0930 Maternal care for other rhesus isoimmunization, third trimester, not applicable or unspecified (principal); Z37.0 Single live birth; O98.42 Viral hepatitis complicating childbirth; B18.2 Chronic viral hepatitis C; F17.290 Nicotine dependence, other tobacco product, uncomplicated; O99.334 Smoking (tobacco) complicating childbirth; O69.81X0 Labor and delivery complicated by cord around neck, without compression, not applicable or unspecified; Z3A.37 37 weeks gestation of pregnancy
CPT/HCPCS: 59025; 59050; 80307; 85025; 86850; 86870; 86900; 86901; 86902; 86920; 86922; 99218; J7120; A4216; G0378; J2405

== ENCOUNTER 2025-03-17 07:30 | Inpatient (IN) | payer MEDICAID, SELFPAY ==
[2025-03-16 22:31] VITALS: BP 103/84; BP 106/66; PULSE 100; PULSE 103; RESP 14; TEMP 36.6; O2SAT 96; O2SAT 99
--- OUTSIDE RECORDS SUMMARY | 2025-03-16 22:48 | XMS RPT_ITS | CCD ---
Author Organization [facility] Care Team Providers Care Handle Lathe Operator Name Role Phone PROVIDER, UNKNOWN Unavailable Unavailable No, PCP Unavailable Unavailable Dmitriy Dixon Unavailable Unavailable BALCOM, GIL EAnselmo Unavailable Unavailable PHYSICIAN, NONE Unavailable Unavailable Unavailable Primary Care Provider Unavailabl e Care Physician, No Primary Primary Care Provider Unavailable Care Physician, No Primary Referring Provider Un available Jannie PARIS, WELL[place] Harris Attending Provider [phone] Unavailable Primary Care Provider Unavailabl e Unavailable Primary Care Provider Unavailabl e Care Physician, No Primary Primary Care Unava ilable Nelda Lugo Attending Unavailable Care Physician, No Primary Primary Care Unava ilable Kayla Robb Attending Unavailable Kayla Robb Admitting Unavailable Care Physician, No Primary Primary Care Unava ilable Richie Mendoza Attending Unavailable Care Physician, No Primary Primary Care Unava ilable Fernie Schmidt Attending Unavailable Tereso Shaikh MD Primary Care Provider Tereso Shaikh MD Primary Care Provider [phone] Tita MICHELE.Maria Guadalupe COURTNEY M Unavailable [phone] TERESO SHAIKH Primary Care Unavailable KAYLA ROBB Referring Unavailable TERESO SHAIKH Primary Care Unavailable KAYLA ROBB Referring Unavailable KAYLA ROBB Attending Unavailable TERESO SHAIKH Primary Care Unavailable KAYLA ROBB Referring Unavailable TERESO SHAIKH Primary Care Unavailable KAYLA ROBB Referring Unavailable KAYLA ROBB Attending Unavailable TERESO SHAIKH Primary Care Unavailable RYLEE SCOTT Referring Unavailable KAYLA ROBB Attending Unavailable TERESO SHAIKH Primary Care Unavailable LACHELLE HICKMAN Referring Unavailable ROXANNE CORDOBA Attending Unavailable SHAIKH, JEREMIAS Primary Care Unavailable HAURY, RYLEE Attending Unavailable SHAIKH, JEREMIAS Primary Care Unavailable HAURY, RYLEE Referring Unavailable SHAIKH, JEREMIAS Primary Care Unavailable SHAIKH, JEREMIAS Primary Care Unavailable SELF Referring Unavailable KAYLA ROBB Attending Unavailable SHAIKH, JEREMIAS Primary Care Unavailable SHAIKH, JEREMIAS Primary Care Unavailable HAURY, RYLEE Referring Unavailable SHAIKH, JEREMIAS Primary Care Unavailable HAURY, RYLEE Referring Unavailable SHAIKH, JEREMIAS Primary Care Unavailable HAURY, RYLEE Referring Unavailable KAYLA ROBB Attending Unavailable SHAIKH, JEREMIAS Primary Care Unavailable KAYLA ROBB Referring Unavailable LACHELLE HICKMAN Attending Unavailable SHAIKH, JEREMIAS Primary Care Unavailable KAYLA ROBB Attending Unavailable SHAIKH, JEREMIAS Primary Care Unavailable KAYLA ROBB Attending Unavailable SHAIKH, JEREMIAS Primary Care Unavailable LATROXANNE SAN Referring Unavailable ROXANNE CORDOBA Attending Unavailable SHAIKH, JEREMIAS Primary Care Unavailable KAYLA ROBB Referring Unavailable LACHELLE HICKMAN Attending Unavailable SHAIKH, JEREMIAS Primary Care Unavailable KAYLA ROBB Referring Unavailable SHAIKH, JEREMIAS Primary Care Unavailable KAYLA ROBB Referring Unavailable HANK RICHMOND Attending Unavail able SHAIKH, JEREMIAS Primary Care Unavailable KAYLA ROBB Referring Unavailable SHAIKH, JEREMIAS Primary Care Unavailable KAYLA ROBB Referring Unavailable SHAIKH, JEREMIAS Primary Care Unavailable KAYLA ROBB Referring Unavailable SHAIKH, JEREMIAS Primary Care Unavailable LACHELLE HICKMAN Attending Unavailable SHAIKH, JEREMIAS Primary Care Unavailable KAYLA ROBB Referring Unavailable LACHELLE KRAMER Attending Unavailable SHAIKH, JEREMIAS Primary Care Unavailable KAYLA ROBB Referring Unavailable KAYLA ROBB Attending Unavailable SHAIKH, JEREMIAS Primary Care Unavailable LORENA SHARMA Attending Unavailable SHAIKH, JEREMIAS Primary Care Unavailable LORENA SHARMA Referring Unavailable Allergies Allergy Classification Reported Allergen(s) Allergy Type Date of Onset Reaction(s) Facility (20 sources) Latex; Translations: [LATEX] Drug Allergy 6 Manisha Bledsoe [facility] Work Phone: (20 sources) Shellfish; Translations: [shellfish derived] Drug Allergy 6 Rash, Swelling [facility] Work Phone: (1 source) Latex Drug allergy (disorder) 3 [facility] Repository Medications Current Medications Medication Drug Class(es) Dates Sig (Normalized) Sig (Original) [id number] 200 actuat albuterol 0.09 mg/actuat metered dose inhaler (20 sources) beta2-Adrenergic Agonist Start: 10-03-2024 End: 11-02-2024 take 2 puff(s) by inhalation every four hours as needed for wheezing albuterol HFA (PROVENTIL HFA, VENTOLIN HFA) 90 mcg/actuation inhaler Indications: Bronchopneumonia Inhale 2 Puffs as instructed every 4 hours as needed for wheezing/shortness of breath. 1 Each 10/03/2024 Active Start: 08-04-2023 End: 08-02-2024 take 2 puff(s) by inhalation every four hours as needed for wheezing albuterol HFA (PROVENTIL HFA, VENTOLIN HFA) 90 mcg/actuation inhaler Inhale 2 Puffs as instructed every 4 hours as needed for wheezing/shortness of breath. 6.7 g 08/04/2023 08/02/2024 Discontinued Comment on above: Inhale 2 Puffs as in structed every 4 hours as needed for wheezing/shortness of breath. amoxicillin 875 mg / clavulanate 125 mg oral tablet (1 source) Penicillin-class Antibacterial Start: 2022 End: 2022 take 1 tablet by mouth twice daily amoxicillin-clavulanat e potassium (AUGMENTIN) 875-125 mg per tablet Take 1 tablet by mouth two times a day for 5 days. 10 tablet 0 08/04/2023 08/09/2023 Active Comment on above: Take 1 tablet by latanya th two times a day for 5 days. fluconazole 150 mg oral tablet (2 sources) Azole Antifungal Start: 2024 End: 2024 fluconazole (DIFLUCAN) 150 mg tablet Take 1 tablet by mouth every 72 hours for 2 doses. 2 tablet 03/15/2025 03/19/2025 Active hydrocortisone 25 mg/ml topical cream (3 sources) Corticosteroid Start: 2021 End: 2021 hydrocortisone (ANUSOL-HC) 2.5 % rectal cream by RECTAL route twice daily for 14 days. 28 g 1 07/29/2022 08/12/2022 Active Comment on above: by RECTAL route twic e daily for 14 days. Inhalational Spacing Device (1 source) Start: 2024 End: 2024 Inhalational Spacing Device Indications: Bronchopneumonia 1 Device one time only for 1 dose. 1 Each 10/03/2024 10/03/2024 Active L. acidophilus-L. rhamnosus 15 billion cell cap (17 sources) Start: 2018 End: 2021 take 1 capsule by mouth once daily L. acidophilus-L. rhamnosus 15 billion cell cap Indications: BV (bacterial vaginosis) , Trichomoniasis Take 1 capsule by mouth once daily. FLORAJEN WOMEN. If on antibiotic, take at least 1-2 hours before or after antibiotic. KEEP REFRIGERATED 30 capsule 11 07/31/2019 05/25/2022 Discontinued (Other) Start: 07-31-2019 take 1 capsule by mo uth once daily L. acidophilus-L. rhamnosus 15 billion cell cap Indications: BV (bacterial vaginosis) , Trichomoniasis Take 1 capsule by mouth once daily. FLORAJEN WOMEN. If on antibiotic, take at least 1-2 hours before or after antibiotic. KEEP REFRIGERATED 30 capsule 11 07/31/2019 Active Comment on above: Take 1 capsule by mo ut once daily. FLORAJEN WOMEN. If on antibiotic, take at least 1-2 hours before or after antibiotic. KEEP REFRIGERATED metroNIDAZOLE 500 mg oral tablet (5 sources) Nitroimidazole Antimicrobial Start: 03-15-20 End: 03-22-20 take 1 tablet by mouth twice daily metroNIDAZOLE (FLAGYL) 500 mg tablet Indications: Bacterial vaginosis Take 1 tablet by mouth two times a day for 7 days. 14 tablet 03/15/2025 03/22/2025 Active Start: 01-22-2022 End: 01-29-2022 take 500 mg by mouth twice daily Metronidazole Active 500 MG PO TWICE A DAY January 26, 2022 12:00am Comment on above: Take 1 tablet by latanya th twice daily for 7 days. miconazole nitrate 20 mg/ml vaginal cream (2 sources) Azole Antifungal Start: 03-15-2025 End: 03-22-2025 miconazole (MONISTAT 7) 2 % vaginal cream Indications: Yeast vaginitis Use 1 applicator vaginally daily at bedtime for 7 days. 45 g 03/15/2025 03/22/2025 Active Pnv #8-Iron Ps Cmp,Aspgl-Folic (2 sources) Start: 06-27-2022 take 1 tablet by mouth once daily Pnv #8-Iron Ps Cmp,Aspgl-Folic Active 1 TABLET PO DAILY June 26, 2022 11:00pm Start: 06-27-2022 take 1 tablet by latanya th once daily Pnv #8-Iron Ps Cmp,Aspgl-Folic Active 1 TABLET PO DAILY June 27, 2022 12:00am predniSONE 20 mg oral tablet (1 source) Start: 08-04-2023 End: 08-08-2023 take 2 tablets by mouth once daily at mealtime predniSONE (DELTASONE) 20 mg tablet Take 2 tablets by mouth once daily for 4 days. Take daily with food. 8 tablet 0 08/04/2023 08/08/2023 Active Comment on above: Take 2 tablets by mo ut once daily for 4 days. Take daily with food. Vitamin w/ Iron (PNV NO. 72, W/ IRON,) 27 mg iron- 1 mg (20 sources) Start: 09-22-2024 take 1 tablet by mouth once daily Vitamin w/ Iron (PNV NO. 72, W/ IRON,) 27 mg iron- 1 mg Indications: Encounter for supervision of high risk in first trimester, antepartum (HCC) Take 1 tablet by mouth once daily. 30 tablet 09/22/2024 Active Start: 09-22-2024 take 1 tablet by latanya th once daily Vitamin w/ Iron (PNV NO. 72, W/ IRON,) 27 mg iron- 1 mg Indications: Encounter for supervision of high risk in first trimester, antepartum Take 1 tablet by mouth once daily. 30 tablet 09/22/2024 Active prochlorperazine 10 mg oral tablet (3 sources) Phenothiazine Start: 04-24-2022 End: 05-25-2022 take 1 tablet by mouth every six hours as needed prochlorperazine (COMPAZINE) 10 mg tablet Take 1 tablet by mouth every 6 hours as needed (nausea). 30 tablet 1 04/24/2022 05/25/2022 Discontinued (Other) Comment on above: Take 1 tablet by latanya th every 6 hours as needed (nausea). valACYclovir 1000 mg oral tablet (5 sources) Herpesvirus Nucleoside Analog DNA Polymerase Inhibitor, Herpes Simplex Virus Nucleoside Analog DNA Polymerase Inhibitor, Herpes Zoster Virus Nucleoside Analog DNA Polymerase Inhibitor Start: 03-01-2025 take 1 tablet by mouth once daily valACYclovir (VALTREX) 1 gram tablet Take 1 tablet by mouth once daily. TAKE ONE(1) TABLET DAILY FOR 3 DAYS . 30 tablet 1 03/01/2025 Active Completed/Discontinued Medications Medication Drug Class(es) Dates Sig (Normalized) Sig (Original) aspirin 81 mg delayed release oral tablet (3 sources) Platelet Aggregation Inhibitor, Nonsteroidal Anti-inflammatory Drug Start: 08-02-2024 End: 09-13-2024 take 1 tablet by mouth once daily aspirin, enteric coated (ECOTRIN LOW STRENGTH) 81 mg EC tablet Indications: Encounter for supervision of high risk in first trimester, antepartum Take 1 tablet by mouth once daily. 90 tablet 3 08/02/2024 09/13/2024 Discontinued atomoxetine 40 mg oral capsule (6 sources) Norepinephrine Reuptake Inhibitor End: 08-02-2024 take 1 capsule by mouth once daily atomoxetine (STRATTERA) 40 mg capsule Take 40 mg by mouth once daily. 08/02/2024 Discontinued Comment on above: Take 40 mg by mouth once daily. azithromycin 250 mg oral tablet (7 sources) Macrolide Antimicrobial Start: 10-03-2024 End: 11-22-2024 azithromycin (ZITHROMAX Z-NOLAN) 250 mg tablet Indications: Bronchopneumonia Take 2 tablets (500 mg) by mouth on day 1, then take 1 tablet (250 mg) by mouth for 4 days. 6 tablet 10/03/2024 11/22/2024 Discontinued benzonatate 100 mg oral capsule (3 sources) Non-narcotic Antitussive Start: 07-05-2024 End: 08-02-2024 take 1 capsule by mouth three times daily as needed benzonatate (TESSALON PERLES) 100 mg capsule Indications: Acute cough Take 1 capsule by mouth three times a day as needed for up to 12 doses. 12 capsule 07/05/2024 08/02/2024 Discontinued busPIRone hydrochloride 10 mg oral tablet (15 sources) Start: 02-16-2023 End: 08-02-2024 take 1 tablet by mouth twice daily busPIRone (BUSPAR) 10 mg tablet Take 1 tablet by mouth twice daily. 60 tablet 1 02/16/2023 08/02/2024 Discontinued Start: 09-21-2022 End: 02-16-2023 take 1 tablet by mouth three times daily busPIRone (BUSPAR) 5 mg tablet Take 5 mg by mouth three times daily. 0 09/21/2022 02/16/2023 Discontinued Comment on above: Take 5 mg by mouth t hree times daily. Take 1 tablet by latanya th twice daily. cefTRIAXone 250 mg injection (3 sources) Cephalosporin Antibacterial Start: 02-17-2022 End: 02-17-2022 cefTRIAXone 250 mg intramuscular injection (ROCEPHIN) Start: 02-17-2022 End: 02-17-2022 cefTRIAXone 500 mg intramusc ular injection (ROCEPHIN) Start: 01-20-2022 End: 01-20-2022 cefTRIAXone 500 mg intramusc ular injection (ROCEPHIN) Desogestrel / Ethinyl Estradiol (11 sources) Progestin, Estrogen Start: 09-09-2022 End: 01-07-2023 take 1 tablet by mouth once daily, then take 0.15 tablet by mouth once Desogestrel-Ethinyl Estradiol (APRI) 0.15-0.03 mg per tablet Indications: Encounter for BCP ( control pills) initial prescription Take 1 tablet by mouth once daily. 28 tablet 12 09/09/2022 01/07/2023 Discontinued Start: 09-09-2022 take 1 tablet by latanya th once daily, then take 0.15 tablet by mouth once Desogestrel-Ethinyl Estradiol (APRI) 0.15-0.03 mg per tablet Indications: Encounter for BCP ( control pills) initial prescription Take 1 tablet by mouth once daily. 28 tablet 12 09/09/2022 Active Start: 07-27-2019 End: 01-02-2022 take 1 tablet by mouth once daily, then take 0.15 tablet by mouth once Desogestrel-Ethinyl Estradiol (APRI) 0.15-0.03 mg per tablet Indications: Encounter for BCP ( control pills) initial prescription Take 1 tablet by mouth once daily. 3 Package 4 07/27/2019 01/02/2022 Discontinued Start: 07-27-2019 take 1 tablet by latanya th once daily, then take 0.15 tablet by mouth once Desogestrel-Ethinyl Estradiol (APRI) 0.15-0.03 mg per tablet Indications: Encounter for BCP ( control pills) initial prescription Take 1 tablet by mouth once daily. 3 Package 4 07/27/2019 Active Comment on above: Take 1 tablet by latanya th once daily. doxylamine succinate 10 mg / pyridoxine hydrochloride 10 mg delayed release oral tablet (12 sources) Start: 09-13-19 End: 11-23-19 doxylamine-pyridoxi ne, vit B6, (DICLEGIS) 10-10 mg TbEC Indications: Encounter for supervision of high risk in first trimester, antepartum , 12 weeks gestation of , Nausea and vomiting during Take 2 tabs at night. If symptoms persist after 2 days add one tab in the morning. If symptoms still persist after 4 days add a tab mid-day 60 tablet 1 09/13/2024 11/22/2024 Discontinued escitalopram 10 mg oral tablet (11 sources) Serotonin Reuptake Inhibitor Start: 09-09-19 End: 12-02-19 23 take 1 tablet by mouth once daily escitalopram oxalate (LEXAPRO) 10 mg tablet Take 1 tablet by mouth once daily. 30 tablet 1 09/09/2022 12/01/2022 Discontinued Comment on above: Take 1 tablet by latanya th once daily. glecaprevir 100 mg / pibrentasvir 40 mg oral tablet (10 sources) Start: 01-06-20 End: 08-02-20 24 take 3 tablets by mouth once daily at mealtime glecaprevir-pibrent asvir (MAVYRET) 100-40 mg tablet Indications: Chronic hepatitis C without hepatic coma (HCC) Take 3 tablets by mouth once daily. Take with food. 84 tablet 1 01/05/2023 08/02/2024 Discontinued Comment on above: Take 3 tablets by mo ut once daily. Take with food. 24 hr nicotine 0.583 mg/hr transdermal system (20 sources) Cholinergic Nicotinic Agonist Start: 06-22-20 End: 09-09-19 apply 1 dose transdermal route every twenty-four hours nicotine (NICODERM) 14 mg/24 hr Apply 1 Patch as directed every 24 hours. 30 Patch 0 06/22/2022 09/09/2022 Discontinued (Other) Start: 06-22-2022 apply 1 dose transde rmal route every twenty-four hours nicotine (NICODERM) 14 mg/24 hr Apply 1 Patch as directed every 24 hours. 30 Patch 0 06/22/2022 Active Start: 05-25-2022 End: 09-09-2022 apply 1 dose transdermal route every twenty-four hours nicotine (NICODERM) 21 mg/24 hr Apply 1 Patch as directed every 24 hours. 28 Patch 0 05/25/2022 09/09/2022 Discontinued (Other) Comment on above: Apply 1 Patch as dir ected every 24 hours. norethindrone 0.35 mg oral tablet (7 sources) Start: 3 End: 4 take 1 tablet by mouth once daily Norethindrone, Contraceptive, (ORTHO MICRONOR) 0.35 mg tablet Take 1 tablet by mouth once daily. 28 tablet 1 03/26/2023 08/02/2024 Discontinued Start: 01-07-2023 take 1 tablet by latanya th once daily Norethindrone, Contraceptive, (ORTHO MICRONOR) 0.35 mg tablet Take 1 tablet by mouth once daily. 28 tablet 1 01/07/2023 Active Comment on above: Take 1 tablet by latanya th once daily. ondansetron 4 mg oral tablet (20 sources) Serotonin-3 Receptor Antagonist Start: 2 End: 3 take 1 tablet by mouth every eight hours as needed ondansetron (ZOFRAN) 4 mg tablet Take 1 tablet by mouth every 8 hours as needed for nausea/vomiting. 30 tablet 1 04/24/2022 09/09/2022 Discontinued (Other) Comment on above: Take 1 tablet by latanya th every 8 hours as needed for nausea/vomiting. PNV/iron/folic acid ( [id number]-BM ORAL) (20 sources) End: 3 take 1 tablet by mouth once daily PNV/iron/folic acid ( [id number]-EW ORAL) Take 1 tablet by mouth once daily. 0 09/09/2022 Discontinued (Other) take 1 tablet by mouth once caitlin y PNV/iron/folic acid ( HQVRFBP-QIWP-JV ORAL) Take 1 tablet by mouth once daily. 0 Active Comment on above: Take 1 tablet by latanya th once daily. vit 38-fman-suzgo-dha (SELECT-OB+DHA) 29 mg iron-1 mg -250 mg (8 sources) Start: 09-13-2024 End: 09-22-2024 vit 90-nfor-lafbk-dha (SELECT-OB+DHA) 29 mg iron-1 mg -250 mg Indications: Encounter for supervision of high risk in first trimester, antepartum Take by mouth as directed. Take 1 tablet and 1 capsule by mouth daily. 60 Each 11 09/13/2024 09/22/2024 Discontinued Start: 09-13-2024 vit 3 6-ccpk-htziv-dha (SELECT-OB+DHA) 29 mg iron-1 mg -250 mg Indications: Encounter for supervision of high risk in first trimester, antepartum Take by mouth as directed. Take 1 tablet and 1 capsule by mouth daily. 60 Each 11 09/13/2024 Active End: 09-13-2024 vit 85-fmdw-mcfle-d aggarwal (SELECT-OB+DHA) 29 mg iron-1 mg -250 mg Take by mouth as directed. Take 1 tablet and 1 capsule by mouth daily. 09/13/2024 Discontinued vit 33- gvsk-xcowj-xel (SELECT-OB+DHA) 29 mg iron-1 mg -250 mg Take by mouth as directed. Take 1 tablet and 1 capsule by mouth daily. Active Problems Active Problems Problem Classification Problem Date Documented Date Episodic/Chronic Anxiety disorders (20 sources) Anxiety disorder; Translations: [Anxiety disorder, unspecified] Onset: 02-16-2023 02-16-2023 Chronic Contraceptive and procreative management (20 sources) Patient encounter status; Translations: [Encounter for initial prescription of contraceptive pills] Onset: 12-20-2024 Episodic Disorders of teeth and jaw (5 sources) Toothache; Translations: [Other specified disorders of teeth and supporting structures] Episodic Hemorrhage during ; abruptio placenta; placenta previa (5 sources) Threatened miscarriage in first trimester; Translations: [Threatened ] Episodic Hepatitis (20 sources) Hepatitis C carrier; Translations: [Chronic viral hepatitis C] Onset: 01-02-2022 Chronic Inflammation; infection of eye (except that caused by tuberculosis or sexually transmitteddisease) (5 sources) Conjunctivitis; Translations: [Unspecified conjunctivitis] Episodic Inflammatory diseases of female pelvic organs (2 sources) Bacterial vaginosis; Translations: [Acute vaginitis] Onset: 03-15-2025 03-15-2025 Episodic Mood disorders (20 sources) Depressive disorder; Translations: [Depression] Onset: 02-16-2023 02-16-2023 Chronic Mood disorders (1 source) Mood disorders; Translations: [Depression, unspecified depression type] Onset: 08-02-2024 Mycoses (2 sources) Candidiasis of vagina; Translations: [Yeast vaginitis] Onset: 03-15-2025 03-15-2025 Episodic Nausea and vomiting (4 sources) Nausea and vomiting; Translations: [Nausea with vomiting, unspecified] Episodic Other complications of (20 sources) High risk ; Translations: [Supervision of high risk , unspecified, third trimester] Onset: 01-09-2016 Resolved: 09-09-2022 09-01-2021 Episodic Other complications of (2 sources) Viral hepatitis complicating , childbirth and the puerperium; Translations: [Viral hepatitis complicating , first trimester] Episodic Other complications of (1 source) Maternal gonorrhea during ; Translations: [Gonorrhea complicating , first trimester] Episodic Other complications of (4 sources) Finding related to ; Translations: [ related conditions, unspecified, first trimester] Episodic Other complications of (1 source) Uterine size for dates discrepancy; Translations: [Uterine size-date discrepancy, third trimester] Episodic Other complications of (1 source) Chronic hepatitis C; Translations: [Viral hepatitis complicating , unspecified trimester] Episodic Other complications of (2 sources) Maternal care for other rhesus isoimmunization, third trimester, not applicable or unspecified; Translations: [Isoimmunization from other and unspecified blood-group incompatibility, antepartum condition or complication] Onset: 03-07-2025 Episodic Other complications of (1 source) Viral hepatitis complicating , unspecified trimester; Translations: [Other viral diseases in the mother, antepartum condition or complication] Episodic Other complications of (1 source) Supervision of with grand multiparity, unspecified trimester; Translations: [Other specified complications of , unspecified as to episode of care or not applicable] Episodic Other complications of (14 sources) with isoimmunization; Translations: [Maternal care for Anti-A sensitization, second trimester, not applicable or unspecified] 11-22-2024 Episodic Other complications of (3 sources) Supervision of high risk , unspecified, second trimester; Translations: [Supervision of high risk in second trimester] Onset: 11-22-2024 Episodic Other complications of (3 sources) Maternal care for Anti-A sensitization, second trimester, not applicable or unspecified; Translations: [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, second trimester, not applicable or unspecified fetus] Onset: 11-22-2024 Episodic Other complications of (1 source) Supervision of high risk due to social problems, third trimester; Translations: [Supervision of high risk due to social problems, third trimester (HCC)] Onset: 01-03-2025 Episodic Other complications of (1 source) Smoking (tobacco) complicating , second trimester; Translations: [Tobacco smoking complicating in second trimester (HCC)] Onset: 12-20-2024 Episodic Other female genital disorders (5 sources) Vaginal bleeding; Translations: [Abnormal uterine and vaginal bleeding, unspecified] Chronic Other female genital disorders (6 sources) Vaginal discharge; Translations: [Other specified noninflammatory disorders of vagina] 03-13-2025 Episodic Other female genital disorders (1 source) Pain in female genitalia; Translations: [Unspecified condition associated with female genital organs and menstrual cycle] Episodic Other female genital disorders (1 source) History of premature labor; Translations: [Personal history of pre-term labor] Episodic Other female genital disorders (1 source) Personal history of pre-term labor; Translations: [Personal history of pre-term labor] Episodic Other female genital disorders (1 source) Unspecified condition associated with female genital organs and menstrual cycle; Translations: [Unspecified symptom associated with female genital organs] Episodic Other lower respiratory disease (1 source) Cough; Translations: [Acute cough] 07-05-2024 Episodic Other nutritional; endocrine; and metabolic disorders (5 sources) Obese class I; Translations: [Obesity, unspecified] Onset: 02-16-2023 02-16-2023 Chronic Other and delivery including normal (17 sources) Normal ; Translations: [Encounter for supervision of other normal , first trimester] Onset: 11-29-2024 Episodic Other upper respiratory disease (5 sources) Nasal congestion; Translations: [Nasal congestion] Episodic Other upper respiratory infections (1 source) Chronic sinusitis; Translations: [Chronic sinusitis, unspecified] 08-04-2023 Chronic Other upper respiratory infections (10 sources) Viral upper respiratory tract infection; Translations: [Acute upper respiratory infection, unspecified] 08-04-2023 Episodic Pneumonia (except that caused by tuberculosis or sexually transmitted disease) (1 source) Bronchopneumonia; Translations: [Bronchopneumonia, unspecified organism] 10-03-2024 Episodic Residual codes; unclassified (2 sources) Gestation period, 13 weeks; Translations: [13 weeks gestation of ] Episodic Residual codes; unclassified (1 source) Gestation period, 17 weeks; Translations: [17 weeks gestation of ] Episodic Residual codes; unclassified (1 source) Gestation period, 19 weeks; Translations: [19 weeks gestation of ] Episodic Residual codes; unclassified (1 source) Gestation period, 22 weeks; Translations: [22 weeks gestation of ] Episodic Residual codes; unclassified (1 source) Gestation period, 27 weeks; Translations: [27 weeks gestation of ] Episodic Residual codes; unclassified (2 sources) Gestation period, 29 weeks; Translations: [29 weeks gestation of ] Episodic Residual codes; unclassified (5 sources) Gestation period, 31 weeks; Translations: [31 weeks gestation of ] Episodic Residual codes; unclassified (2 sources) Gestation period, 33 weeks; Translations: [33 weeks gestation of ] Episodic Residual codes; unclassified (2 sources) Gestation period, 34 weeks; Translations: [34 weeks gestation of ] Episodic Residual codes; unclassified (2 sources) Gestation period, 35 weeks; Translations: [35 weeks gestation of ] Episodic Residual codes; unclassified (3 sources) Gestation period, 36 weeks; Translations: [36 weeks gestation of ] Episodic Residual codes; unclassified (2 sources) Gestation period, 37 weeks; Translations: [37 weeks gestation of ] 03-07-2025 Episodic Residual codes; unclassified (1 source) 31 weeks gestation of ; Translations: [ state, incidental] Episodic Residual codes; unclassified (2 sources) 37 weeks gestation of ; Translations: [ state, incidental] Onset: 03-07-2025 Episodic Residual codes; unclassified (1 source) Gestation period, 6 weeks; Translations: [Less than 8 weeks gestation of ] 08-02-2024 Episodic Residual codes; unclassified (20 sources) H/O: blood transfusion; Translations: [Personal history of other medical treatment] 08-02-2024 Episodic Residual codes; unclassified (2 sources) Gestation period, 12 weeks; Translations: [12 weeks gestation of ] 09-13-2024 Episodic Residual codes; unclassified (1 source) Gestation period, 16 weeks; Translations: [16 weeks gestation of ] 10-11-2024 Episodic Residual codes; unclassified (2 sources) Gestation period, 20 weeks; Translations: [20 weeks gestation of ] 11-08-2024 Episodic Residual codes; unclassified (1 source) History of intravenous drug abuse; Translations: [Personal history of other specified conditions] 11-22-2024 Episodic Residual codes; unclassified (2 sources) Gestation period, 24 weeks; Translations: [24 weeks gestation of ] 12-06-2024 Episodic Residual codes; unclassified (1 source) 20 weeks gestation of ; Translations: [20 weeks gestation of ] Onset: 11-29-2024 Episodic Residual codes; unclassified (2 sources) Gestation period, 26 weeks; Translations: [26 weeks gestation of ] 12-20-2024 Episodic Residual codes; unclassified (1 source) Gestation period, 28 weeks; Translations: [28 weeks gestation of ] 01-03-2025 Episodic Residual codes; unclassified (2 sources) Gestation period, 30 weeks; Translations: [30 weeks gestation of ] 01-17-2025 Episodic Residual codes; unclassified (1 source) Gestation period, 32 weeks; Translations: [32 weeks gestation of ] 01-31-2025 Episodic Residual codes; unclassified (1 source) 36 weeks gestation of ; Translations: [36 weeks gestation of (HCC)] Onset: 03-01-2025 Episodic Residual codes; unclassified (1 source) 34 weeks gestation of ; Translations: [34 weeks gestation of (HCC)] Onset: 02-14-2025 Episodic Residual codes; unclassified (1 source) 32 weeks gestation of ; Translations: [32 weeks gestation of (HCC)] Onset: 01-31-2025 Episodic Residual codes; unclassified (1 source) 30 weeks gestation of ; Translations: [30 weeks gestation of (HCC)] Onset: 01-17-2025 Episodic Residual codes; unclassified (1 source) 24 weeks gestation of ; Translations: [24 weeks gestation of (HCC)] Onset: 01-03-2025 Episodic Residual codes; unclassified (1 source) 28 weeks gestation of ; Translations: [28 weeks gestation of ([facility])] Onset: 01-03-2025 Episodic Residual codes; unclassified (1 source) 26 weeks gestation of ; Translations: [26 weeks gestation of ([facility])] Onset: 12-20-2024 Episodic Residual codes; unclassified (1 source) Gestation period, 38 weeks; Translations: [38 weeks gestation of ] 03-13-2025 Episodic Screening and history of mental health and substance abuse codes (20 sources) H/O: depression; Translations: [Personal history of other mental and behavioral disorders] Onset: 01-06-2016 Resolved: 04-29-2016 09-01-2021 Episodic Substance-related disorders (20 sources) Other stimulant abuse, uncomplicated; Translations: [Nicotine dependence, cigarettes, uncomplicated] Onset: 04-22-2016 Resolved: 01-02-2022 09-02-2021 Chronic Unclassified (11 sources) Abnormal results of thyroid function studies; Translations: [Patient encounter status] Onset: 07-13-2017 Episodic Unclassified (20 sources) [facility] Education - COMMON Onset: 08-02-2024 08-02-2024 Unclassified (20 sources) Education - [place] Onset: 08-02-2024 08-02-2024 Past or Other Problems Problem Classification Problem Date Documented Date Episodic/Chronic Abdominal pain (6 sources) Pain in pelvis; Translations: [Pelvic and perineal pain] Onset: 07-06-2022 Episodic Bacterial infection (20 sources) Methicillin resistant Staphylococcus aureus infection as the cause of diseases classified elsewhere; Translations: [Bacteria present] Onset: 05-04-2016 Resolved: 01-02-2022 05-04-2016 Episodic Hepatitis (2 sources) Unspecified viral hepatitis C without hepatic coma; Translations: [Unspecified viral hepatitis C without hepatic coma] Onset: 07-13-2017 Episodic Immunizations and screening for infectious disease (20 sources) Contact with or exposure to other viral diseases; Translations: [Lab test negative for COVID-19 virus] Onset: 02-27-2022 Resolved: 09-09-2022 Episodic Other complications of (20 sources) Late entry into care; Translations: [Supervision of with insufficient care, unspecified trimester] Onset: 01-06-2016 Resolved: 01-02-2022 09-01-2021 Episodic Other complications of (20 sources) Pain in female pelvis; Translations: [Other specified related conditions, unspecified trimester] Onset: 01-06-2016 Resolved: 01-02-2022 09-01-2021 Episodic Other complications of (20 sources) 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; Translations: [Maternal care for other rhesus isoimmunization, second trimester, not applicable or unspecified] Onset: 01-09-2016 Resolved: 09-09-2022 09-01-2021 Episodic Other complications of (20 sources) Abdominal pain in ; Translations: [Other specified related conditions, unspecified trimester] Onset: 04-22-2016 Resolved: 01-02-2022 04-22-2016 Episodic Other complications of (20 sources) Maternal tobacco use; Translations: [Smoking (tobacco) complicating , unspecified trimester] Onset: 04-29-2016 Resolved: 09-09-2022 04-29-2016 Episodic Other complications of (1 source) Supervision of high risk , unspecified, third trimester; Translations: [Supervision of high risk , unspecified, third trimester] Onset: 08-17-2022 Episodic Other complications of (1 source) Diseases of the respiratory system complicating , third trimester; Translations: [Diseases of the respiratory system complicating , third trimester] Onset: 05-13-2022 Episodic Other complications of (20 sources) Chlamydia trachomatis infection in ; Translations: [Other maternal infectious and parasitic diseases complicating , unspecified trimester] Onset: 01-14-2016 Resolved: 01-14-2016 09-01-2021 Episodic Other complications of (20 sources) Vomiting of , unspecified; Translations: [Unspecified vomiting of , unspecified as to episode of care or not applicable] Onset: 08-02-2024 08-02-2024 Episodic Other complications of (3 sources) Maternal care for other rhesus isoimmunization, second trimester, not applicable or unspecified; Translations: [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, single or unspecified fetus] Onset: 09-18-2024 Episodic Other complications of (2 sources) Smoking (tobacco) complicating , first trimester; Translations: [Tobacco smoking complicating in first trimester (HCC)] Onset: 08-02-2024 Episodic Other complications of (1 source) Maternal care for Anti-A sensitization, second trimester, fetus 5; Translations: [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, second trimester, fetus 5] Onset: 11-27-2024 Episodic Other complications of (1 source) Supervision of high risk , unspecified, first trimester; Translations: [Encounter for supervision of high risk in first trimester, antepartum] Onset: 08-02-2024 Episodic Other connective tissue disease (4 sources) Other synovitis and tenosynovitis, unspecified hand; Translations: [Other infective (teno)synovitis, right hand] Onset: 07-13-2017 Episodic Other infections; including parasitic (20 sources) History of chlamydial infection; Translations: [Personal history of other infectious and parasitic diseases] Onset: 01-09-2016 Resolved: 01-02-2022 09-01-2021 Episodic Other infections; including parasitic (20 sources) Infection by Trichomonas; Translations: [Trichomoniasis, unspecified] Onset: 01-09-2016 Resolved: 02-16-2023 09-01-2021 Episodic Other infections; including parasitic (20 sources) History of hepatitis C; Translations: [Personal history of other infectious and parasitic diseases] Onset: 08-02-2024 08-02-2024 Episodic Other infections; including parasitic (20 sources) History of sexually transmitted disease; Translations: [Personal history of other infectious and parasitic diseases] Onset: 08-02-2024 08-02-2024 Episodic Other infections; including parasitic (20 sources) H/O: infectious disease; Translations: [Personal history of other infectious and parasitic diseases] Onset: 08-02-2024 08-02-2024 Episodic Other infections; including parasitic (4 sources) Personal history of other infectious and parasitic diseases; Translations: [History of herpes genitalis] Onset: 08-02-2024 Episodic Other injuries and conditions due to external causes (20 sources) H/O: injury; Translations: [Personal history of other (healed) physical injury and trauma] Onset: 08-02-2024 08-02-2024 Episodic Other nervous system disorders (20 sources) H/O: brain disorder; Translations: [Personal history of other diseases of the nervous system and sense organs] Onset: 01-06-2016 Resolved: 09-09-2022 09-01-2021 Episodic Residual codes; unclassified (20 sources) Family history of cystic fibrosis; Translations: [Family history of other endocrine, nutritional and metabolic diseases] Onset: 01-07-2016 Resolved: 09-09-2022 09-01-2021 Episodic Residual codes; unclassified (20 sources) FH: Congenital heart disease; Translations: [Family history of other congenital malformations, deformations and chromosomal abnormalities] Onset: 08-02-2024 08-02-2024 Episodic Residual codes; unclassified (20 sources) H/O: miscarriage; Translations: [Personal history of other complications of , childbirth and the puerperium] Onset: 08-02-2024 08-02-2024 Episodic Residual codes; unclassified (1 source) 16 weeks gestation of ; Translations: [16 weeks gestation of ] Onset: 10-30-2024 Episodic Residual codes; unclassified (1 source) Less than 8 weeks gestation of ; Translations: [6 weeks gestation of ] Onset: 08-02-2024 Episodic Residual codes; unclassified (1 source) Family history of other congenital malformations, deformations and chromosomal abnormalities; Translations: [Family history of congenital heart defect] Onset: 08-02-2024 Episodic Residual codes; unclassified (1 source) Personal history of other complications of , childbirth and the puerperium; Translations: [History of depression] Onset: 08-02-2024 Episodic Residual codes; unclassified (1 source) Personal history of other medical treatment; Translations: [History of blood transfusion] Onset: 08-02-2024 Episodic Sexually transmitted infections (not HIV or hepatitis) (20 sources) Gonorrhea; Translations: [Gonococcal infection, unspecified] Onset: 01-09-2022 Resolved: 02-16-2023 01-09-2022 Episodic Substance-related disorders (20 sources) Marijuana user; Translations: [Cannabis use, unspecified, uncomplicated] Onset: 04-22-2016 Resolved: 01-02-2022 09-02-2021 Episodic Unclassified (2 sources) Patient's noncompliance with other medical treatment and regimen; Translations: [Patient's noncompliance w oth medical treatment and regimen] Onset: 07-13-2017 Episodic Viral infection (20 sources) Herpes simplex; Translations: [Herpesviral infection, unspecified] Onset: 01-13-2022 Resolved: 08-02-2024 01-13-2022 Episodic Results Test Name Value Interpretation Reference Range Facility URINE OB DIP B/Oon Glucose Ql (U) Negative Neg mg/dL [facility] Interpretation and review of laboratory results Normal [facility] Protein.monoclonal (U) [Mass/Vol] Negative Neg mg/dL [facility] C. trachomatis+N. gonorrhoea e DNA YELENA+probe Ql (Unsp spec)on 03-01-2025 C. trachomatis rRNA YELENA+probe Ql (Unsp spec) Not detected Normal Not detected [facility] Comment on above: Order Comment: Speci men Type: BLOOD SPECIMEN Ordering Facility: [facility] Address: [address] [place] [address] Performed By: #### G LTGST #### [facility] CLIA [id number] [address] [place] [address] [place] N. gonorrhoeae rRNA YELENA+probe Ql (Unsp spec) Not detected Normal Not detected [facility] Comment on above: Order Comment: Speci men Type: BLOOD SPECIMEN Ordering Facility: [facility] Address: [address] [place] [address] Performed By: #### G LTGST #### [facility] CLIA [id number] [address] [place] [address] [place] ROUTINE, GROUP B ST REPTOCOCCUS BY PCRon 03-01-2025 ROUTINE, GROUP B STREPTOCOCCUS BY PCR Not detected Normal [facility] Comment on above: Performed By: #### G BPCR ####[facility] [id number] [address] OF ADAL TRICHOMONAS VAGINALIS NAATon 03-01-2025 T. vaginalis DNA YELENA+probe Ql (Unsp spec) Not detected Normal Not detected [facility] Comment on above: Order Comment: Speci men Type: BLOOD SPECIMEN Ordering Facility: [facility] Address: [address] [place] [address] Performed By: #### G LTGST #### [facility] CLIA [id number] [address] [place] [address] [place] URINE OB DIP B/Oon 5 Glucose Ql (U) Negative Neg mg/dL [facility] Interpretation and review of laboratory results Normal [facility] Protein.monoclonal (U) [Mass/Vol] Negative Neg mg/dL [facility] Examination level ultrasound on 02-14-[address] [facility] Radiology Study observation (narrative) [facility] URINE OB DIP B/Oon 5 Glucose Ql (U) Negative Neg mg/dL [facility] Interpretation and review of laboratory results Normal [facility] Protein.monoclonal (U) [Mass/Vol] Negative Neg mg/dL [facility] Examination level ultrasound on 01-17-[address] [facility] Radiology Study observation (narrative) 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 [facility] MAT OGFVWE During your visit today, we recorded the following information about you: Shoshana Guido, RN 01/04/2025 9:20 AM Signed 3rd risk assessment form submitted 01/04/25 Shoshana Guido RN Allergies As of Date: 01/04/2025 Noted Allergy Reaction LATEX 01/06/2016 4 - Hives 7 - Swelling SHELLFISH DERIVED 01/06/2016 2 - Rash 7 - Swelling Date Reviewed: 01/03/2025 Reviewed by: Liliana Crow MA - Fully Assessed Reason for Visit: PRAF [4193] Prescriptions as of 01/04/2025 - albuterol HFA (PROVENTIL HFA, VENTOLIN HFA) 90 mcg/actuation inhaler Inhale 2 Puffs as instructed every 4 hours as needed for wheezing/shortness of breath. - Vitamin w/ Iron (PNV NO. 72, W/ IRON,) 27 mg iron- 1 mg Take 1 tablet by mouth once daily. 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] 04/22/2016 01/02/2022 Marijuana smoker [F12.90] 04/22/2016 01/02/2022 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] 04/22/2016 01/02/2022 Tobacco smoking complicating in first*04/29/2016 Positive GBS test [B95.1] 05/04/2016 01/02/2022 History of drug abuse (HCC) [F19.11] 01/02/2022 Gonorrhea [A54.9] 01/09/2022 02/16/2023 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] 01/13/2022 08/02/2024 Trichomonas infection [A59.9] 01/22/2022 02/16/2023 Red blood cell antibody positive [R76.8] 02/27/2022 09/09/2022 Depression [F32.A] 02/16/2023 Anxiety disorder [F41.9] 02/16/2023 Marijuana use during [O99.320, F12.90]08/02/2024 History of hepatitis C [Z86.19] 08/02/2024 History of herpes genitalis [Z86.19] 08/02/2024 Family history of congenital heart defect [Z82.*08/02/2024 History of depression [Z87.59, Z86.5* History of trichomoniasis [Z86.19] 08/02/2024 History of blood transfusion [Z92.89] History of miscarriage [Z87.59] 08/02/2024 History of trauma [Z87.828] 08/02/2024 Nausea and vomiting during [O21.9] 08/02/2024 General counseling and advice for contraceptive*12/20/2024 Supervision of high risk due to socia*01/03/2025 Encounter Status:Closed by SHOSHANA GUIDO on 01/04/25 Normal [facility] CBC W Auto Differential pane l (Bld)on 01-03-2025 Basophils (Bld) [#/Vol] 10*3/uL Normal <0.11 [facility] Comment on above: Order Comment: Speci men Type: BLOOD SPECIMEN Ordering Facility: [facility] Address: [address] [place] [address] Performed By: #### 5 7021-8 #### [facility] CLIA [id number] [address] [place] [address] [place] Basophils/100 WBC (Bld) 0.2 % Normal [facility] Comment on above: Order Comment: Speci men Type: BLOOD SPECIMEN Ordering Facility: [facility] Address: [address] [place] [address] Performed By: #### 5 7021-8 #### [facility] CLIA [id number] [address] [place] [address] [place] Differential cell count method Nom (Bld) Auto Normal [facility] Comment on above: Order Comment: Speci men Type: BLOOD SPECIMEN Ordering Facility: [facility] Address: [address] [place] [address] Performed By: #### 5 7021-8 #### [facility] CLIA [id number] [address] [place] [address] [place] Eosinophils (Bld) [#/Vol] 0.04 10*3/uL Normal <0.46 [facility] Comment on above: Order Comment: Speci men Type: BLOOD SPECIMEN Ordering Facility: [facility] Address: [address] [place] [address] Performed By: #### 5 7021-8 #### [facility] CLIA [id number] [address] [place] [address] [place] Eosinophils/100 WBC (Bld) 0.5 % Normal [facility] Comment on above: Order Comment: Speci men Type: BLOOD SPECIMEN Ordering Facility: [facility] Address: [address] [place] [address] Performed By: #### 5 7021-8 #### [facility] CLIA [id number] [address] [place] [address] [place] Erythrocyte distribution width (RBC) [Ratio] 13.5 % Normal 11.5-15.0 [facility] Comment on above: Order Comment: Speci men Type: BLOOD SPECIMEN Ordering Facility: [facility] Address: [address] [place] [address] Performed By: #### 5 7021-8 #### [facility] CLIA [id number] [address] [place] [address] [place] Hematocrit (Bld) [Volume fraction] 34.9 % Low 36.0-46.0 [facility] Comment on above: Order Comment: Speci men Type: BLOOD SPECIMEN Ordering Facility: [facility] Address: [address] [place] [address] Performed By: #### 5 7021-8 #### [facility] CLIA [id number] [address] [place] [address] [place] Hemoglobin (Bld) [Mass/Vol] 11.7 g/dL Normal 11.5-15.5 [facility] Comment on above: Order Comment: Speci men Type: BLOOD SPECIMEN Ordering Facility: [facility] Address: [address] [place] [address] Performed By: #### 5 7021-8 #### [facility] CLIA [id number] [address] [place] [address] [place] Immature granulocytes (Bld) [#/Vol] 0.04 10*3/uL Normal <0.10 [facility] Comment on above: Order Comment: Speci men Type: BLOOD SPECIMEN Ordering Facility: [facility] Address: [address] [place] [address] Performed By: #### 5 7021-8 #### [facility] CLIA [id number] [address] [place] [address] [place] Immature granulocytes/100 WBC (Bld) 0.5 % Normal [facility] Comment on above: Order Comment: Speci men Type: BLOOD SPECIMEN Ordering Facility: [facility] Address: [address] [place] [address] Performed By: #### 5 7021-8 #### [facility] CLIA [id number] [address] [place] [address] [place] Lymphocytes (Bld) [#/Vol] 2.13 10*3/uL Normal 1.00-4.00 [facility] Comment on above: Order Comment: Speci men Type: BLOOD SPECIMEN Ordering Facility: [facility] Address: [address] [place] [address] Performed By: #### 5 7021-8 #### [facility] CLIA [id number] [address] [place] [address] [place] Lymphocytes/100 WBC (Bld) 26.2 % Normal [facility] Comment on above: Order Comment: Speci men Type: BLOOD SPECIMEN Ordering Facility: [facility] Address: [address] [place] [address] Performed By: #### 5 7021-8 #### [facility] CLIA [id number] [address] [place] [address] [place] MCH (RBC) [Entitic mass] 30.4 pg Normal 26.0-34.0 [facility] Comment on above: Order Comment: Speci men Type: BLOOD SPECIMEN Ordering Facility: [facility] Address: [address] [place] [address] Performed By: #### 5 7021-8 #### [facility] CLIA [id number] [address] [place] [address] [place] MCHC (RBC) [Mass/Vol] 33.5 g/dL Normal 30.5-36.0 [facility] Comment on above: Order Comment: Speci men Type: BLOOD SPECIMEN Ordering Facility: [facility] Address: [address] [place] [address] Performed By: #### 5 7021-8 #### [facility] CLIA [id number] [address] [place] [address] [place] MCV (RBC) [Entitic vol] 90.6 fL Normal 80.0-100.0 [facility] Comment on above: Order Comment: Speci men Type: BLOOD SPECIMEN Ordering Facility: [facility] Address: [address] [place] [address] Performed By: #### 5 7021-8 #### [facility] CLIA [id number] [address] [place] [address] [place] Monocytes (Bld) [#/Vol] 0.43 10*3/uL Normal <0.87 [facility] Comment on above: Order Comment: Speci men Type: BLOOD SPECIMEN Ordering Facility: [facility] Address: [address] [place] [address] Performed By: #### 5 7021-8 #### [facility] CLIA [id number] [address] [place] [address] [place] Monocytes/100 WBC (Bld) 5.3 % Normal [facility] Comment on above: Order Comment: Speci men Type: BLOOD SPECIMEN Ordering Facility: [facility] Address: [address] [place] [address] Performed By: #### 5 7021-8 #### [facility] CLIA [id number] [address] [place] [address] [place] Neutrophils (Bld) [#/Vol] 5.46 10*3/uL Normal 1.45-7.50 [facility] Comment on above: Order Comment: Speci men Type: BLOOD SPECIMEN Ordering Facility: [facility] Address: [address] [place] [address] Performed By: #### 5 7021-8 #### [facility] CLIA [id number] [address] [place] [address] [place] Neutrophils/100 WBC (Bld) 67.3 % Normal [facility] Comment on above: Order Comment: Speci men Type: BLOOD SPECIMEN Ordering Facility: [facility] Address: [address] [place] [address] Performed By: #### 5 7021-8 #### [facility] CLIA [id number] [address] [place] [address] [place] Nucleated RBC (Bld) [#/Vol] 10*3/uL Normal <0.01 [facility] Comment on above: Order Comment: Speci men Type: BLOOD SPECIMEN Ordering Facility: [facility] Address: [address] [place] [address] Performed By: #### 5 7021-8 #### [facility] CLIA [id number] [address] [place] [address] [place] Nucleated RBC/100 WBC (Bld) [Ratio] 0.0 /100 WBC Normal [facility] Comment on above: Order Comment: Speci men Type: BLOOD SPECIMEN Ordering Facility: [facility] Address: [address] [place] [address] Performed By: #### 5 7021-8 #### [facility] CLIA [id number] [address] [place] [address] [place] Platelet mean volume (Bld) [Entitic vol] 10.6 fL Normal 9.0-12.7 [facility] Comment on above: Order Comment: Speci men Type: BLOOD SPECIMEN Ordering Facility: [facility] Address: [address] [place] [address] Performed By: #### 5 7021-8 #### [facility] CLIA [id number] [address] [place] [address] [place] Platelets (Bld) [#/Vol] 233 10*3/uL Normal 150-400 [facility] Comment on above: Order Comment: Speci men Type: BLOOD SPECIMEN Ordering Facility: [facility] Address: [address] [place] [address] Performed By: #### 5 7021-8 #### [facility] CLIA [id number] [address] [place] [address] [place] RBC (Bld) [#/Vol] 3.85 10*6/uL Low 3.90-5.20 [facility] Comment on above: Order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 wheezing/shortness of breath. - Vitamin w/ Iron (PNV NO. 72, W/ IRON,) 27 mg iron- 1 mg Take 1 tablet by mouth once daily. 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 Normal [facility] Vidya 11-22-2024 [facility] Telephone (JIMMY) -------- CALIN GRAF ([id number]) 1995 F Date Time Provider Department 11/22/24 ELENA MARTIN During your visit today, we recorded the following information about you: Elena Martin, TELEVISION AND RADIO REPAIRER 11/22/2024 4:45 PM Signed Reddy called patient and she notes that she just got done with appt in [place] and she notes that she would like Sw to send My Chart message with community social service resources. Reddy will send My Chart message with resource. Allergies As of Date: 11/22/2024 Noted Allergy Reaction LATEX 01/06/2016 4 - Hives 7 - Swelling SHELLFISH DERIVED 01/06/2016 2 - Rash 7 - Swelling Date Reviewed: 11/22/2024 Reviewed by: Tracey Leslie MA - Fully Assessed Prescriptions as of 11/22/2024 - albuterol HFA (PROVENTIL HFA, VENTOLIN HFA) 90 mcg/actuation inhaler Inhale 2 Puffs as instructed every 4 hours as needed for wheezing/shortness of breath. - Vitamin w/ Iron (PNV NO. 72, W/ IRON,) 27 mg iron- 1 mg Take 1 tablet by mouth once daily. 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 History of chlamydia [Z86.19] 01/09/2016 Trichomoniasis [A59.9] 01/09/2016 01/02/2022 Chlamydia infection, current [O98.819*01/14/2016 01/14/2016 Abdominal pain affecting , antepartum *04/22/2016 01/02/2022 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] 04/22/2016 01/02/2022 Marijuana smoker [F12.90] 04/22/2016 01/02/2022 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] 04/22/2016 01/02/2022 Tobacco smoking complicating in first*04/29/2016 Positive GBS test [B95.1] 05/04/2016 01/02/2022 History of drug abuse (HCC) [F19.11] 01/02/2022 Gonorrhea [A54.9] 01/09/2022 02/16/2023 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] 01/13/2022 08/02/2024 Trichomonas infection [A59.9] 01/22/2022 02/16/2023 Red blood cell antibody positive [R76.8] 02/27/2022 09/09/2022 Depression [F32.A] 02/16/2023 Anxiety disorder [F41.9] 02/16/2023 Marijuana use during [O99.320, F12.90]08/02/2024 History of hepatitis C [Z86.19] 08/02/2024 History of herpes genitalis [Z86.19] 08/02/2024 Family history of congenital heart defect [Z82.*08/02/2024 History of depression [Z87.59, Z86.5* History of trichomoniasis [Z86.19] 08/02/2024 History of blood transfusion [Z92.89] History of miscarriage [Z87.59] 08/02/2024 History of trauma [Z87.828] 08/02/2024 Nausea and vomiting during [O21.9] 08/02/2024 Encounter Status:Closed by ELENA MARTIN on 11/22/24 Normal [facility] Examination level ultrasound on 11-22-[address] [facility] Radiology Study observation (narrative) [facility] Vidya 11-09-2024 [facility] Telephone (OGFVWE) -------- CALIN GRAF ([id number]) 1995 F Date Time Provider Department 11/09/24 NURSE AURICULAR DETOXIFICATION SPECIALIST [facility] OGFV[facility] During your visit today, we recorded the following information about you: Shoshana Guido RN 11/09/2024 11:35 AM Signed 2nd risk assessment form submitted 11/09/24 Shoshana Guido RN Allergies As of Date: 11/09/2024 Noted Allergy Reaction LATEX 01/06/2016 4 - Hives 7 - Swelling SHELLFISH DERIVED 01/06/2016 2 - Rash 7 - Swelling Date Reviewed: 11/08/2024 Reviewed by: Kayla Robb MD - Fully Assessed Reason for Visit: PRAF [4193] Prescriptions as of 11/09/2024 - azithromycin (ZITHROMAX Z-NOLAN) 250 mg tablet Take 2 tablets (500 mg) by mouth on day 1, then take 1 tablet (250 mg) by mouth for 4 days. - albuterol HFA (PROVENTIL HFA, VENTOLIN HFA) 90 mcg/actuation inhaler Inhale 2 Puffs as instructed every 4 hours as needed for wheezing/shortness of breath. - Vitamin w/ Iron (PNV NO. 72, W/ IRON,) 27 mg iron- 1 mg Take 1 tablet by mouth once daily. - doxylamine-pyridoxine, vit B6, (DICLEGIS) 10-10 mg TbEC Take 2 tabs at night. If symptoms persist after 2 days add one tab in the morning. 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/09/2016 History of chlamydia [Z86.19] 01/09/2016 Trichomoniasis [A59.9] 01/09/2016 01/02/2022 Chlamydia infection, current [O98.819*01/14/2016 01/14/2016 Abdominal pain affecting , antepartum *04/22/2016 01/02/2022 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] 04/22/2016 01/02/2022 Marijuana smoker [F12.90] 04/22/2016 01/02/2022 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] 04/22/2016 01/02/2022 Tobacco smoking complicating in first*04/29/2016 Positive GBS test [B95.1] 05/04/2016 01/02/2022 History of drug abuse (HCC) [F19.11] 01/02/2022 Gonorrhea [A54.9] 01/09/2022 02/16/2023 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] 01/13/2022 08/02/2024 Trichomonas infection [A59.9] 01/22/2022 02/16/2023 Red blood cell antibody positive [R76.8] 02/27/2022 09/09/2022 Depression [F32.A] 02/16/2023 Anxiety disorder [F41.9] 02/16/2023 Marijuana use during [O99.320, F12.90]08/02/2024 History of hepatitis C [Z86.19] 08/02/2024 History of herpes genitalis [Z86.19] 08/02/2024 Family history of congenital heart defect [Z82.*08/02/2024 History of depression [Z87.59, Z86.5* History of trichomoniasis [Z86.19] 08/02/2024 History of blood transfusion [Z92.89] History of miscarriage [Z87.59] 08/02/2024 History of trauma [Z87.828] 08/02/2024 Nausea and vomiting during [O21.9] 08/02/2024 Encounter Status:Closed by SHOSHANA GUIDO on 11/09/24 Normal [facility] Examination level ultrasound on 11-08-2024 Indication Detailed anatomic survey Antibody E isoimmunization Impression REMOTE READ The patient is referred for a detailed anatomic survey. - Single, live, intrauterine . - biometry is consistent with the established gestational age. - No malformations were visualized on a complete detailed anatomic survey. - The amniotic fluid volume is normal amount. - The placenta is posterior, fundal. - The Transabdominal cervical length measures 38 mm with no evidence of funneling or other dynamic changes. - The MCA-PSV shows no sign of anemia - Not all structural malformations can be detected by ultrasound examination. Recommendations MCA Doppler every other week Maternal Assessment Height 163 cm Height (ft) 5 ft Height (in) 4 in Physical Exam Initial weight (lb) 169 lb Initial BMI 29.01 kg/m Maternal assessment other: 5 Para 3 Method Transabdominal ultrasound examination. View: Adequate visualization [place] . Number of fetuses: 1 Dating LMP on: 06/19/2024 GA by LMP 20 w + 2 d CHANELL by LMP: 03/26/2025 GA by prior assessment 20 w + 2 d CHANELL by prior assessment: 03/26/2025 Ultrasound examination on: 11/08/2024 GA by U/S based upon: AC, BPD, Femur, HC GA by U/S 20 w + 4 d CHANELL by U/S: 03/24/2025 Assigned: based on stated CHANELL, selected on 11/08/2024 Assigned GA 20 w + 2 d Assigned CHANELL: 03/26/2025 General Evaluation Cardiac activity present. FHR 141 bpm. movements: present. Presentation: breech Placenta: Placental site: posterior, fundal Umbilical cord: Cord vessels: 3 vessel cord Amniotic fluid: Amount of AF: normal amount. MVP 4.9 cm Growth Overview Exam date GA BPD (mm) HC (mm) AC (mm) FL (mm) HL (mm) EFW (g) 11/08/2024 20w 2d 48.3 63% 184.9 67% 155.8 60% 32.4 58% 31.7 64% 358 56% Biometry Standard BPD 48.3 mm 20w 4d 63% Hadlock OFD 66.4 mm 20w 6d 94% Nicolaides HC 184.9 mm 20w 6d 67% Mariel Cerebellum tr 21.9 mm 20w 4d 81% Hill Nuchal fold 5.9 mm AC 155.8 mm 20w 5d 60% Hadlock Femur 32.4 mm 20w 2d 58% Mariel Humerus 31.7 mm 20w 4d 64% Mariel EFW 358 g 20w 3d 56% Hadlock EFW (lb) 0 lb EFW (oz) 13 oz EFW by: Hadlock (HC-AC-FL) Extended Technical Delivery Manager 4.9 mm CM 4.9 mm 46% Nicolaides Extremities / Bony Struc FL / HC 0.18 21% Hadlock Other Structures FHR 141 bpm Anatomy Cranium: normal Lateral ventricles: normal Choroid plexus: normal Midline falx: normal Cavum septi pellucidi: normal Cerebellum: normal Cisterna magna: normal Head / Neck Vermis: normal Neck: normal Nuchal fold: normal Lips: normal Profile: normal Nose: normal Face Maxilla: normal Mandible: normal Orbits: normal Lens: normal 4-chamber view: normal RVOT view: normal LVOT view: normal 3-vessel view: normal [id number]-zrhywks view: normal Heart / Thorax Situs: situs solitus (normal) Aortic arch view: normal SVC: normal IVC: normal Cardiac axis: normal Rt lung: normal Lt lung: normal Diaphragm: normal Cord insertion: normal Stomach: normal Kidneys: normal Bladder: normal Genitals: normal Abdomen Abdom. wall: normal Cervical spine: normal Thoracic spine: normal Lumbar spine: normal Sacral spine: normal Arms: normal Legs: normal Rt upper arm: normal Rt forearm: normal Rt hand: normal Rt fingers: normal Lt upper arm: normal Lt forearm: normal Lt hand: normal Lt fingers: normal Rt upper leg: normal Rt lower leg: normal Rt foot: normal Lt upper leg: normal Lt lower leg: normal Lt foot: normal sex: male Wants to know sex: yes Doppler Arterial MCA PI 1.68 MCA PS 22.25 cm/s MoM 0.86 Maternal Structures Uterus / Cervix Uterus: Visualized Cervix: Visualized Approach: Transabdominal Cervical length 38.0 mm Other: Patient declined transvaginal ultrasound for cervical length. Ovaries / Tubes / Adnexa Rt ovary: Not visualized Lt ovary: Visualized Performed By: Hussein Perkins RDMS, RVT Read By: Stephani Cano M.D. MATERNAL MEDICINE [facility] Radiology Study observation (narrative) [facility] Vidya 11-03-2024 JOSE M Telephone (OBGYWM) -------- CALIN GRAF ([id number]) 1995 F Date Time Provider Department 11/03/24 REMA ALFRED During your visit today, we recorded the following information about you: Lachelle Bean, ZEINA 11/03/2024 11:49 AM Signed 19w4d Patient viewed her +Antibody Screen on [employer]. Patient feeling anxious about the report. Would like provider database administration manager to review in SERGEI absence. Thank you. ZEINA Vallejo Rebecca L, MD 11/07/2024 2:24 PM Signed See my note about follow up in result notes. MFM consult and dopplers q 2 weeks. Orders were entered. See if you can pull any records for her last for blood work/blood bank since she delivered at [facility] to have available for MFM consult. (ie was baby liu +). Thanks. MD Masha Bejarano Lindsey, RN 11/07/2024 2:39 PM Signed See result note from 11/07/24. Hussein Fields RN Allergies As of Date: 11/03/2024 Noted Allergy Reaction LATEX 01/06/2016 4 - Hives 7 - Swelling SHELLFISH DERIVED 01/06/2016 2 - Rash 7 - Swelling Date Reviewed: 10/11/2024 Reviewed by: Osmar Douglas MA - Fully Assessed Reason for Visit: OB Question about Results [Other] Prescriptions as of 11/07/2024 - azithromycin (ZITHROMAX Z-NOLAN) 250 mg tablet Take 2 tablets (500 mg) by mouth on day 1, then take 1 tablet (250 mg) by mouth for 4 days. - albuterol HFA (PROVENTIL HFA, VENTOLIN HFA) 90 mcg/actuation inhaler Inhale 2 Puffs as instructed every 4 hours as needed for wheezing/shortness of breath. - Vitamin w/ Iron (PNV NO. 72, W/ IRON,) 27 mg iron- 1 mg Take 1 tablet by mouth once daily. - doxylamine-pyridoxine, vit B6, (DICLEGIS) 10-10 mg TbEC Take 2 tabs at night. If symptoms persist after 2 days add one tab in the morning. 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 History of chlamydia [Z86.19] 01/09/2016 Trichomoniasis [A59.9] 01/09/2016 01/02/2022 Chlamydia infection, current [O98.819*01/14/2016 01/14/2016 Abdominal pain affecting , antepartum *04/22/2016 01/02/2022 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] 04/22/2016 01/02/2022 Marijuana smoker [F12.90] 04/22/2016 01/02/2022 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] 04/22/2016 01/02/2022 Tobacco smoking complicating in first*04/29/2016 Positive GBS test [B95.1] 05/04/2016 01/02/2022 History of drug abuse (HCC) [F19.11] 01/02/2022 Gonorrhea [A54.9] 01/09/2022 02/16/2023 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] 01/13/2022 08/02/2024 Trichomonas infection [A59.9] 01/22/2022 02/16/2023 Red blood cell antibody positive [R76.8] 02/27/2022 09/09/2022 Depression [F32.A] 02/16/2023 Anxiety disorder [F41.9] 02/16/2023 Marijuana use during [O99.320, F12.90]08/02/2024 History of hepatitis C [Z86.19] 08/02/2024 History of herpes genitalis [Z86.19] 08/02/2024 Family history of congenital heart defect [Z82.*08/02/2024 History of depression [Z87.59, Z86.5* History of trichomoniasis [Z86.19] 08/02/2024 History of blood transfusion [Z92.89] History of miscarriage [Z87.59] 08/02/2024 History of trauma [Z87.828] 08/02/2024 Nausea and vomiting during [O21.9] 08/02/2024 Encounter Status:Closed by HUSSEIN FIELDS on 11/07/24 Normal [facility] ABO AND RH ONLYon 10-30-2024 ABO O Normal [facility] Comment on above: Order Comment: Speci men Type: BLOOD SPECIMENOrdering Facility: [facility] Address: [address] [place] [address] Performed By: #### A SCR, %JETHRO, DAGT, ABORH, ABT, BBABINT ####CC MAIN BLOOD BANKCLIA [id number] [place] [address] [place] Rh Nom (Bld) Positive Normal [facility] Comment on above: Order Comment: Speci men Type: BLOOD SPECIMENOrdering Facility: [facility] Address: [address] [place] [address] Performed By: #### A SCR, %JETHRO, DAGT, ABORH, ABT, BBABINT ####CC MAIN BLOOD BANKCLIA [id number] [place] [address] [place] ABO TITER/ISOHEMAGGon 2024 ABO ANTIBODY TITER Titers to 8 Normal [facility] Comment on above: Order Comment: Speci men Type: BLOOD SPECIMENOrdering Facility: [facility] Address: [address] [place] [address] Result Comment: Anti body titered = E Corrected result: Previously reported as Titers to 16 on 11/01/2024 at 4:35 PM EST. Performed By: #### A SCR, %JETHRO, DAGT, ABORH, ABT, BBABINT ####CC MAIN BLOOD BANKCLIA [id number] [address] OF [place]AL ANTIBODY ID PATIENTon 2024 ANTIBODY IDENTIFIED Detected Normal [facility] Comment on above: Order Comment: Speci men Type: BLOOD SPECIMENOrdering Facility: [facility] Address: [address] [place] [address] Performed By: #### A SCR, %JETHRO, DAGT, ABORH, ABT, BBABINT ####CC MAIN BLOOD BANKCLIA [id number] [address] ANTIBODY SCREENon 10-30-2024 TYPE AND SCREEN EXPIRATION 11/02/2024 23:59 Normal [facility] Comment on above: Order Comment: Speci men Type: BLOOD SPECIMENOrdering Facility: [facility] Address: [address] [place] [address] Performed By: #### A SCR, %JETHRO, DAGT, ABORH, ABT, BBABINT ####CC MAIN BLOOD BANKCLIA [id number] [address] BLOOD BANK PLACEHOLDER, ANTI BODY INTERPRETATIONon 10-30-2024 BLOOD BANK REPORT, ANTIBODY INTERPRETATION See Pathology Report Normal [facility] Comment on above: Order Comment: Speci men Type: BLOOD SPECIMENOrdering Facility: [facility] Address: [address] [place] [address] Performed By: #### A SCR, %JETHRO, DAGT, ABORH, ABT, BBABINT ####CC MAIN BLOOD BANKCLIA [id number] [address] BLOOD BANK REPORT, ANTIBODY INTERPRETATIONon 10-30-2024 PATHOLOGY INTERPRETATION Normal [facility] Comment on above: Order Comment: Speci men Type: BLOOD SPECIMENOrdering Facility: [facility] Address: [address] [place] [address] Result Comment: Anti -E is currently and previously identified. The current sample shows a titer of 8. The previous titer was measured as 4 but on repeat testing today was found to be 16. She has previously reached a critical titer of 16. See report from 06/26/2022). Because of this, no further titers will be run. Please monitor the patient with advanced monitoring per standard protocols. A titer of 16 or greater is generally considered critical based on data derived from studies of anti-D. Ongoing monitoring of antibody titers should be completed following ACOG recommendations. Titers may not be used to assess risk when there has been a history of a previously affected fetus or when levels have reached critical values. Testing of a paternal sample for the E antigen is available to further characterize risk. Paternal testing may be ordered using EMR order code [id number]. Please state the maternal name, maternal date of , maternal medical record number, in addition to the specificity of the maternal antibody (i.e. anti-E) on the order. at 1142 EST Performed By: #### B BRABI ####CC [facility] BLOOD BANKIA [id number] [place] [address] [place] LIU DIRECTon 10-30-2024 DAGT, POLYSPECIFIC AHG Negative Normal [facility] Comment on above: Order Comment: Speci men Type: BLOOD SPECIMENOrdering Facility: [facility] Address: [address] [place] [address] Performed By: #### A SCR, %JETHRO, DAGT, ABORH, ABT, BBABINT ####CC [facility] BLOOD BANKIA [id number] [place] [address] [place] CNOVon 10-03-2024 CNOV Office Visit (UCWSTR ) -------- CALIN GRAF ([id number]) 1995 F Date Time Provider Department 10/03/24 11:15 AM FRANCISCO CHAVEZ [facility] During your visit today, we recorded the following information about you: Temperature Pulse Respiration Blood pressure 97.9 degrees 98/minute 18/minute 110/72 Weight 78.6 kg Francisco Chavez PA-C 10/03/2024 11:32 AM Signed This note was created using [employer]. Subjective Calin Graf is a 29 year old female. Patient is a 29-year-old female who complains of ongoing cough that she has been experiencing for the past 3+ weeks. Patient does not have asthma but states that she has been prescribed an albuterol MDI in the past for episodes of bronchitis. Patient reports no fever, chills or myalgia. Patient denies congestion, sinus pressure, ear pain or sore throat. Patient is approximately 12 weeks gestation. Cough Review of Systems Respiratory: Positive for cough. All other systems reviewed and are negative. Objective BP 110/72 Pulse 98 Temp 36.6 ?C (97.9 ?F) (Tympanic) Resp 18 Wt 78.6 kg (173 lb 4.5 oz) LMP 06/19/2024 (Approximate) SpO2 99% BMI 28.84 kg/m? Physical Exam Vitals and nursing note reviewed. Constitutional: Appearance: Normal appearance. She is normal weight. HENT: Head: Normocephalic and atraumatic. Right Ear: Tympanic membrane, ear canal and external ear normal. Left Ear: Tympanic membrane, ear canal and external ear normal. Nose: Nose normal. Mouth/Throat: Mouth: Mucous membranes are moist. Pharynx: Oropharynx is clear. Eyes: Extraocular Movements: Extraocular movements intact. Conjunctiva/sclera: Conjunctivae normal. Pupils: Pupils are equal, round, and reactive to light. Cardiovascular: Rate and Rhythm: Normal rate and regular rhythm. Pulses: Normal pulses. Heart sounds: Normal heart sounds. Pulmonary: Effort: Pulmonary effort is normal. Breath sounds: Normal breath sounds. Musculoskeletal: Cervical back: Normal range of motion and neck supple. Skin: General: Skin is warm and dry. Capillary Refill: Capillary refill takes less than 2 seconds. Neurological: General: No focal deficit present. Mental Status: She is alert and oriented to person, place, and time. Psychiatric: Mood and Affect: Mood normal. Behavior: Behavior normal. Thought Content: Thought content normal. Judgment: Judgment normal. Assessment and Plan Physical exam findings as noted above. Patient was provided with prescriptions for Zithromax 250 mg and an albuterol MDI. Patient was very clearly instructed to contact her SITE AUDITOR or report to an emergency department if she notes any acute worsening of her symptoms. Patient verbalizes good understanding of the above instructions. CLINICAL IMPRESSION: Bronchopneumonia; Persistent Cough ASSESSMENT/PLAN: 1. Bronchopneumonia - ICD9: 485, ICD10: J18.0 - AZITHROMYCIN 250 MG TABLET - ALBUTEROL SULFATE HFA 90 MCG/ACTUATION AEROSOL INHALER - INHALATIONAL SPACING DEVICE Francisco Chavez PA-C Allergies As of Date: 10/03/2024 Noted Allergy Reaction LATEX 01/06/2016 4 - Hives 7 - Swelling SHELLFISH DERIVED 01/06/2016 2 - Rash 7 - Swelling Date Reviewed: 10/03/2024 Reviewed by: Cindy Rivera LPN - Fully Assessed Reason for Visit: Cough [28] Cmt: Cough, chest congestion and wheezing x 2 weeks Primary Visit Diagnosis:Bronchopneumon ia [J18.0] Order(s):azithromycin (ZITHROMAX Z-NOLAN) 250 mg tabletTake 2 tablets (500 mg) by mouth on day 1, then take 1 tablet (250 mg) by mouth for 4 days.Disp: 6 tabletRfl: 0 albuterol HFA (PROVENTIL HFA, VENTOLIN HFA) 90 mcg/actuation inhalerInhale 2 Puffs as instructed every 4 hours as needed for wheezing/shortness of breath.Disp: 1 EachRfl: 0 Inhalational Spacing Device1 Device one time only for 1 dose.Disp: 1 EachRfl: 0 Prescriptions as of 10/03/2024 - azithromycin (ZITHROMAX Z-NOLAN) 250 mg tablet Take 2 tablets (500 mg) by mouth on day 1, then take 1 tablet (250 mg) by mouth for 4 days. - albuterol HFA (PROVENTIL HFA, VENTOLIN HFA) 90 mcg/actuation inhaler Inhale 2 Puffs as instructed every 4 hours as needed for wheezing/shortness of breath. - Inhalational Spacing Device 1 Device one time only for 1 dose. - Vitamin w/ Iron (PNV NO. 72, W/ IRON,) 27 mg iron- 1 mg Take 1 tablet by mouth once daily. - doxylamine-pyridoxine, vit B6, (DICLEGIS) 10-10 mg TbEC Take 2 tabs at night. If symptoms persist after 2 days add one tab in the morning. If symptoms still persist after 4 days add a tab mid-day Problem List As Of Date 10/03/2024 Noted Resolved Late care affecting [O09.30] 01/06/2016 01/02/2022 Pelvic pain in [O26.899, R10.2] 01/06/2016 01/02/2022 Quit smoking [Z87.891] 01/06/2016 04/29/2016 History of Antoine de la Tourette's syndrome [Z8*01/06/2016 09/09/2022 Family history of cystic (more content not included)... Normal [facility] Vidya 09-14-2024 CNPN Telephone (OBGYWM) -------- CALIN GRAF ([id number]) 1995 F Date Time Provider Department 09/14/24 RYLEE SCOTT During your visit today, we recorded the following information about you: Amara Medina RN 09/14/2024 12:33 PM Signed 12w3d Pt calling anxious about lab result of HEPATITIS C ANTIBODY IA WITH CONFIRMATION being positive. Advised Pt that Hepatitis C Virus (HCV) RNA, Quantitative PCR, Plasma/Serum has been ordered and we will notify her once this results. Pt states she has confirmation of Hepatitis C negative in 06/2023 and has done nothing to re-infect herself with Hepatitis C. Please advise if additional advise needs given to Pt. ZEINA Herring Emily, APRN.CNP 09/14/2024 12:37 PM Signed No further info available until quant is done. Hep C antibody will always be + Rylee Scott APRN.CNP Allergies As of Date: 09/14/2024 Noted Allergy Reaction LATEX 01/06/2016 4 - Hives 7 - Swelling SHELLFISH DERIVED 01/06/2016 2 - Rash 7 - Swelling Date Reviewed: 09/13/2024 Reviewed by: Kayla Robb MD - Fully Assessed Reason for Visit: Results [95] Prescriptions as of 09/14/2024 - vit 28-xwum-jvgql-dha (SELECT-OB+DHA) 29 mg iron-1 mg -250 mg Take by mouth as directed. Take 1 tablet and 1 capsule by mouth daily. - doxylamine-pyridoxine, vit B6, (DICLEGIS) 10-10 mg TbEC Take 2 tabs at night. If symptoms persist after 2 days add one tab in the morning. 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 Encounter for supervision of high risk pregnanc*01/09/2016 History of chlamydia [Z86.19] 01/09/2016 Trichomoniasis [A59.9] 01/09/2016 01/02/2022 Chlamydia infection, current [O98.819*01/14/2016 01/14/2016 Abdominal pain affecting , antepartum *04/22/2016 01/02/2022 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] 04/22/2016 01/02/2022 Marijuana smoker [F12.90] 04/22/2016 01/02/2022 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] 04/22/2016 01/02/2022 Tobacco smoking complicating in first*04/29/2016 Positive GBS test [B95.1] 05/04/2016 01/02/2022 History of drug abuse (HCC) [F19.11] 01/02/2022 Gonorrhea [A54.9] 01/09/2022 02/16/2023 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] 01/13/2022 08/02/2024 Trichomonas infection [A59.9] 01/22/2022 02/16/2023 Red blood cell antibody positive [R76.8] 02/27/2022 09/09/2022 Depression [F32.A] 02/16/2023 Anxiety disorder [F41.9] 02/16/2023 Marijuana use during [O99.320, F12.90]08/02/2024 History of hepatitis C [Z86.19] 08/02/2024 History of herpes genitalis [Z86.19] 08/02/2024 Family history of congenital heart defect [Z82.*08/02/2024 History of depression [Z87.59, Z86.5* History of trichomoniasis [Z86.19] 08/02/2024 History of blood transfusion [Z92.89] History of miscarriage [Z87.59] 08/02/2024 History of trauma [Z87.828] 08/02/2024 Nausea and vomiting during [O21.9] 08/02/2024 Encounter Status:Closed by AMARA MEDINA on 09/14/24 Normal [facility] ABO TITER/ISOHEMAGGon 2024 ABO ANTIBODY TITER Titers to 4 Normal [facility] Comment on above: Order Comment: Speci men Type: BLOOD SPECIMENOrdering Facility: [facility] Address: [address] [place] [address] Result Comment: anti -E TITER 1:4 Performed By: #### T SPN, %JETHRO, BBABINT, ABT ####CC MAIN BLOOD BANKCLIA [id number] [address] ANTIBODY ID PATIENTon 2024 ANTIBODY IDENTIFIED Detected Normal [facility] Comment on above: Order Comment: Temitope henry Type: BLOOD SPECIMENOrdering Facility: [facility] Address: [address] [place] [address] Performed By: #### T SPN, %JETHRO, BBABINT, ABT ####CC MAIN BLOOD BANKCLIA [id number] [address] BLOOD BANK PLACEHOLDER, ANTI BODY INTERPRETATIONon 09-13-2024 BLOOD BANK REPORT, ANTIBODY INTERPRETATION See Pathology Report Normal [facility] Comment on above: Order Comment: Temitope henry Type: BLOOD SPECIMENOrdering Facility: [facility] Address: [address] [place] [address] Performed By: #### T SPN, %JETHRO, BBABINT, ABT ####CC MAIN BLOOD BANKCLIA [id number] [address] BLOOD BANK REPORT, ANTIBODY INTERPRETATIONon 09-13-2024 PATHOLOGY INTERPRETATION Normal [facility] Comment on above: Order Comment: Temitope henry Type: BLOOD SPECIMENOrdering Facility: [facility] Address: [address] [place] [address] Result Comment: Anti -E is identified. This antibody may cause red cell hemolysis and hemolytic disease of the fetus and (HDFN). Other common clinically significant RBC alloantibodies are ruled out. The current sample shows a titer of 4. 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 As this patient has previously reached critical titer threshold, she should be closely followed as a high risk for the current and future pregnancies. Further titering is no longer indicated on future samples as the patient has already crossed the threshold for high-risk monitoring, and RBC antibody titers are not necessarily indicative of potential anemia risk in these patients. A titer of 16 or greater is generally considered critical based on data derived from studies of anti-D. Ongoing monitoring of antibody titers should be completed following ACOG recommendations. Titers may not be used to assess risk when there has been a history of a previously affected fetus or when levels have reached critical values. Testing of a paternal sample for the E antigen is available to further characterize risk. Paternal testing may be ordered using EMR order code [id number]. Please state the maternal name, maternal date of , maternal medical record number, in addition to the specificity of the maternal antibody (i.e. anti-E) on the order. For RBC transfusion, units will be E-antigen negative and serologically crossmatch-compatible. Please allow up to 4 hours to provide compatible blood. Performed By: #### B ANA ####[facility] LABCLIA [id number] [place] [address] [place] CBC W Auto Differential pane l (Bld)on 09-13-2024 Basophils (Bld) [#/Vol] 0.03 10*3/uL Normal <0.11 [facility] Comment on above: Order Comment: Speci men Type: BLOOD SPECIMENOrdering Facility: [facility] Address: [address] [place] [address] Performed By: #### 5 7021-8 ####[facility] ER [id number] [place] [address] [place] Basophils/100 WBC (Bld) 0.3 % Normal [facility] Comment on above: Order Comment: Speci men Type: BLOOD SPECIMENOrdering Facility: [facility] Address: [address] [place] [address] Performed By: #### 5 7021-8 ####[facility] ER [id number] [place] [address] [place] Differential cell count method Nom (Bld) Auto Normal [facility] Comment on above: Order Comment: Speci men Type: BLOOD SPECIMENOrdering Facility: [facility] Address: [address] [place] [address] Performed By: #### 5 7021-8 ####[facility] MILLWNCLIA [id number] [place] [address] [place] Eosinophils (Bld) [#/Vol] 0.10 10*3/uL Normal <0.46 [facility] Comment on above: Order Comment: Speci men Type: BLOOD SPECIMENOrdering Facility: [facility] Address: [address] [place] [address] Performed By: #### 5 7021-8 ####[facility]EN'S HOSPITALWOHLIA [id number] [place] [address] [place] Eosinophils/100 WBC (Bld) 1.0 % Normal [facility] Comment on above: Order Comment: Speci men Type: BLOOD SPECIMENOrdering Facility: [facility] Address: [address] [place] [address] Performed By: #### 5 7021-8 ####[facility]OSPITALLIA [id number] [place] [address] [place] Erythrocyte distribution width (RBC) [Ratio] 13.4 % Normal 11.5-15.0 [facility] Comment on above: Order Comment: Speci men Type: BLOOD SPECIMENOrdering Facility: [facility] Address: [address] [place] [address] Performed By: #### 5 7021-8 ####[facility]ITALLIA [id number] [place] [address] [place] Hematocrit (Bld) [Volume fraction] 39.0 % Normal 36.0-46.0 [facility] Comment on above: Order Comment: Speci men Type: BLOOD SPECIMENOrdering Facility: [facility] Address: [address] [place] [address] Performed By: #### 5 7021-8 ####[facility]PITALNCLIA [id number] [place] [address] [place] Hemoglobin (Bld) [Mass/Vol] 13.1 g/dL Normal 11.5-15.5 [facility] Comment on above: Order Comment: Speci men Type: BLOOD SPECIMENOrdering Facility: [facility] Address: [address] [place] [address] Performed By: #### 5 7021-8 ####[facility] ER [id number] [place] [address] [place] Immature granulocytes (Bld) [#/Vol] 0.03 10*3/uL Normal <0.10 [facility] Comment on above: Order Comment: Speci men Type: BLOOD SPECIMENOrdering Facility: [facility] Address: [address] [place] [address] Performed By: #### 5 7021-8 ####[facility] ER [id number] [place] [address] [place] Immature granulocytes/100 WBC (Bld) 0.3 % Normal [facility] Comment on above: Order Comment: Speci men Type: BLOOD SPECIMENOrdering Facility: [facility] Address: [address] [place] [address] Performed By: #### 5 7021-8 ####[facility] ER [id number] [place] [address] [place] Lymphocytes (Bld) [#/Vol] 2.47 10*3/uL Normal 1.00-4.00 [facility] Comment on above: Order Comment: Speci men Type: BLOOD SPECIMENOrdering Facility: [facility] Address: [address] [place] [address] Performed By: #### 5 7021-8 ####[facility] [id number] [place] [address] [place] Lymphocytes/100 WBC (Bld) 24.0 % Normal [facility] Comment on above: Order Comment: Speci men Type: BLOOD SPECIMENOrdering Facility: [facility] Address: [address] [place] [address] Performed By: #### 5 7021-8 ####[facility] TANNASHORTSVILLEANTONIETA [id number] [address] MCH (RBC) [Entitic mass] 29.2 pg Normal 26.0-34.0 [facility] Comment on above: Order Comment: Speci men Type: BLOOD SPECIMENOrdering Facility: [facility] Address: [address] [place] [address] Performed By: #### 5 7021-8 ####[facility]OSPITALNCLe [id number] [place] [address] [place] MCHC (RBC) [Mass/Vol] 33.6 g/dL Normal 30.5-36.0 [facility] Comment on above: Order Comment: Speci men Type: BLOOD SPECIMENOrdering Facility: [facility] Address: [address] [place] [address] Performed By: #### 5 7021-8 ####[facility] HOSPITALNCLe [id number] [place] [address] [place] MCV (RBC) [Entitic vol] 87.1 fL Normal 80.0-100.0 [facility] Comment on above: Order Comment: Speci men Type: BLOOD SPECIMENOrdering Facility: [facility] Address: [address] [place] [address] Performed By: #### 5 7021-8 ####[facility]OSPITALNCLI [id number] [place] [address] [place] Monocytes (Bld) [#/Vol] 0.57 10*3/uL Normal <0.87 [facility] Comment on above: Order Comment: Speci men Type: BLOOD SPECIMENOrdering Facility: [facility] Address: [address] [place] [address] Performed By: #### 5 7021-8 ####[facility] HOSPITALWOHLIA [id number] [place] [address] [place] Monocytes/100 WBC (Bld) 5.5 % Normal [facility] Comment on above: Order Comment: Speci men Type: BLOOD SPECIMENOrdering Facility: [facility] Address: [address] [place] [address] Performed By: #### 5 7021-8 ####[facility]ALLIA [id number] [place] [address] [place] Neutrophils (Bld) [#/Vol] 7.10 10*3/uL Normal 1.45-7.50 [facility] Comment on above: Order Comment: Speci men Type: BLOOD SPECIMENOrdering Facility: [facility] Address: [address] [place] [address] Performed By: #### 5 7021-8 ####[facility] CHARLOTTEA [id number] [place] [address] [place] Neutrophils/100 WBC (Bld) 68.9 % Normal [facility] Comment on above: Order Comment: Speci men Type: BLOOD SPECIMENOrdering Facility: [facility] Address: [address] [place] [address] Performed By: #### 5 7021-8 ####[facility]ALLIA [id number] [place] [address] [place] Nucleated RBC (Bld) [#/Vol] 10*3/uL Normal <0.01 [facility] Comment on above: Order Comment: Speci men Type: BLOOD SPECIMENOrdering Facility: [facility] Address: [address] [place] [address] Performed By: #### 5 7021-8 ####[facility]ALLIA [id number] [place] [address] [place] Nucleated RBC/100 WBC (Bld) [Ratio] 0.0 /100 WBC Normal [facility] Comment on above: Order Comment: Speci men Type: BLOOD SPECIMENOrdering Facility: [facility] Address: [address] [place] [address] Performed By: #### 5 7021-8 ####[facility]ITALNCINTER[facility] [id number] [place] [address] [place] Platelet mean volume (Bld) [Entitic vol] 10.5 fL Normal 9.0-12.7 [facility] Comment on above: Order Comment: Speci men Type: BLOOD SPECIMENOrdering Facility: [facility] Address: [address] [place] [address] Performed By: #### 5 7021-8 ####[facility] ER [id number] [place] [address] [place] Platelets (Bld) [#/Vol] 258 10*3/uL Normal 150-400 [facility] Comment on above: Order Comment: Speci men Type: BLOOD SPECIMENOrdering Facility: [facility] Address: [address] [place] [address] Performed By: #### 5 7021-8 ####[facility] ER [id number] [place] [address] [place] RBC (Bld) [#/Vol] 4.48 10*6/uL Normal 3.90-5.20 [facility] Comment on above: Order Comment: Speci men Type: BLOOD SPECIMENOrdering Facility: [facility] Address: [address] [place] [address] Performed By: #### 5 7021-8 ####[facility]ITALNC[facility] [id number] [place] [address] [place] WBC (Bld) [#/Vol] 10.30 10*3/uL Normal 3.70-11.00 [facility] Comment on above: Order Comment: Speci men Type: BLOOD SPECIMENOrdering Facility: [facility] Address: [address] [place] [address] Performed By: #### 5 7021-8 ####[facility] DIMASLIA [id number] [place] [address] [place] Comprehensive metabolic 2000 panelon 09-13-2024 Albumin [Mass/Vol] 4.3 g/dL Normal 3.9-4.9 [facility] Comment on above: Order Comment: Speci men Type: BLOOD SPECIMENOrdering Facility: [facility] Address: [address] [place] [address] Performed By: #### 2 4323-8 ####[facility]OSPITALNCLIA [id number] [place] [address] [place] ALP [Catalytic activity/Vol] 57 U/L Normal 34-123 [facility] Comment on above: Order Comment: Speci men Type: BLOOD SPECIMENOrdering Facility: [facility] Address: [address] [place] [address] Performed By: #### 2 4323-8 ####[facility] HOSPITALAISHALIA [id number] [place] [address] [place] ALT [Catalytic activity/Vol] 10 U/L Normal 7-38 [facility] Comment on above: Order Comment: Speci men Type: BLOOD SPECIMENOrdering Facility: [facility] Address: [address] [place] [address] Performed By: #### 2 4323-8 ####[facility]OSPITALNCLIA [id number] [place] [address] [place] Anion gap [Moles/Vol] 12 mmol/L Normal 8-15 [facility] Comment on above: Order Comment: Speci men Type: BLOOD SPECIMENOrdering Facility: [facility] Address: [address] [place] [address] Performed By: #### 2 4323-8 ####[facility] LAILA MILLTOWNCLIA [id number] [place] [address] [place] AST [Catalytic activity/Vol] 17 U/L Normal 13-35 [facility] Comment on above: Order Comment: Speci men Type: BLOOD SPECIMENOrdering Facility: [facility] Address: [address] [place] [address] Performed By: #### 2 4323-8 ####[facility] MILLTOWNCLIA [id number] [place] [address] [place] Bilirubin [Mass/Vol] 0.4 mg/dL Normal 0.2-1.3 [facility] Comment on above: Order Comment: Speci men Type: BLOOD SPECIMENOrdering Facility: [facility] Address: [address] [place] [address] Performed By: #### 2 4323-8 ####[facility] HOSPITALWNCLIA [id number] [place] [address] [place] Calcium [Mass/Vol] 9.9 mg/dL Normal 8.5-10.2 [facility] Comment on above: Order Comment: Speci men Type: BLOOD SPECIMENOrdering Facility: [facility] Address: [address] [place] [address] Performed By: #### 2 4323-8 ####[facility] MILLWNCLIA [id number] [place] [address] [place] Chloride [Moles/Vol] 102 mmol/L Normal 98-107 [facility] Comment on above: Order Comment: Speci men Type: BLOOD SPECIMENOrdering Facility: [facility] Address: [address] [place], [place] [address] Performed By: #### 2 4323-8 ####[facility]OSPITALNCLIA [id number] [place] [address] [place] CO2 [Moles/Vol] 21 mmol/L Low 22-30 [facility] Comment on above: Order Comment: Speci men Type: BLOOD SPECIMENOrdering Facility: [facility] Address: [address] [place] [address] Performed By: #### 2 4323-8 ####[facility] ER [id number] [place] [address] [place] Creatinine [Mass/Vol] 0.54 mg/dL Low 0.58-0.96 [facility] Comment on above: Order Comment: Speci men Type: BLOOD SPECIMENOrdering Facility: [facility] Address: [address] [place] [address] Performed By: #### 2 4323-8 ####[facility] ER [id number] [address] [place] Creatinine and Glomerular filtration rate.predicted panel (S/P/Bld) 128 mL/min/1.73m??? Normal >=60 [facility] Comment on above: Order Comment: Speci men Type: BLOOD SPECIMENOrdering Facility: [facility] Address: [address] [place] [address] Result Comment: Nisha mated Glomerular Filtration Rate (eGFR) is calculated using the 2020 CKD-EPI creatinine equation. This equation utilizes serum creatinine, sex, and age as parameters. The creatinine assay has traceable calibration to isotope dilution-mass spectrometry. Refer to KDIGO guidelines for clinical interpretation. In patients with unstable renal function, e.g. those with acute kidney injury, the eGFR may not accurately reflect actual GFR. Performed By: #### 2 4323-8 ####[facility] ER [id number] [place] [address] [place] Glucose [Mass/Vol] 89 mg/dL Normal 74-99 [facility] Comment on above: Order Comment: Speci men Type: BLOOD SPECIMENOrdering Facility: [facility] Address: [address] [place] [address] Result Comment: The [place] [employer] (ADA) provides guidance for cutoff values for fasting glucose and random glucose. The ADA defines fasting as no caloric intake for at least 8 hours. Fasting plasma glucose results between 100 to 125 mg/dL indicate increased risk for diabetes (prediabetes). Fasting plasma glucose results greater than or equal to 126 mg/dL meet the criteria for diagnosis of diabetes. In the absence of unequivocal hyperglycemia, results should be confirmed by repeat testing. In a patient with classic symptoms of hyperglycemia or hyperglycemic crisis, random plasma glucose results greater than or equal to 200 mg/dL meet the criteria for diagnosis of diabetes. Reference: Standards of Medical Care in Diabetes 2016, [place] [employer] Association. Diabetes Care. 2016.39(Suppl 1). Performed By: #### 2 4323-8 ####[facility] [id number] [place] [address] [place] Potassium [Moles/Vol] 3.9 mmol/L Normal 3.7-5.1 [facility] Comment on above: Order Comment: Speci men Type: BLOOD SPECIMENOrdering Facility: [facility] Address: [address] [place] [address] Performed By: #### 2 4323-8 ####[facility] [id number] [place] [address] [place] Protein [Mass/Vol] 7.5 g/dL Normal 6.3-8.0 [facility] Comment on above: Order Comment: Speci men Type: BLOOD SPECIMENOrdering Facility: [facility] Address: [address] [address] Performed By: #### 2 4323-8 ####[facility] [id number] [place] [address] [place] Sodium [Moles/Vol] 135 mmol/L Low 136-144 [facility] Comment on above: Order Comment: Speci men Type: BLOOD SPECIMENOrdering Facility: [facility] Address: [address] [place] [address] Performed By: #### 2 4323-8 ####[facility] LAILA MILLTOWNCLIA [id number] [place] [address] [place] Urea nitrogen [Mass/Vol] 8 mg/dL Normal 7- [facility] Comment on above: Order Comment: Speci men Type: BLOOD SPECIMENOrdering Facility: [facility] Address: [facility] [place] [address] Performed By: #### 2 4323-8 ####[facility] LAILABRENDA CISSETOWNCLIA [id number] [place] [address] [place] nuchal translucency me asured by on 09-13-2024 Indication First trimester anatomic survey Impression REMOTE READ The patient is referred for a first trimester anatomy scan including nuchal translucency measurement as clinically indicated. - Single, live, intrauterine . - Sherwood rump length measurement is consistent with the established gestational age. - A qualitative screen of the nuchal translucency and other anatomic structures was unremarkable on a complete first trimester anatomic assessment. - Not all structural malformations can be detected by ultrasound examination. Maternal Structures: Right Ovary: Size 30 mm x 27 mm x 15 mm Left Ovary: Size 30 mm x 20 mm x 13 mm Recommendations Return for anatomy ultrasound Maternal Assessment Height 163 cm Height (ft) 5 ft Height (in) 4 in Physical Exam Initial weight (lb) 169 lb Initial BMI 29.01 kg/m Maternal assessment other: 5 Para 3 Method Transabdominal ultrasound examination [place] . Number of fetuses: 1 Dating LMP on: 06/19/2024 GA by LMP 12 w + 2 d CHANELL by LMP: 03/26/2025 GA by prior assessment 12 w + 2 d CHANELL by prior assessment: 03/26/2025 Ultrasound examination on: 09/13/2024 GA by U/S based upon: CRL GA by U/S 13 w + 1 d CHANELL by U/S: 03/20/2025 Assigned: based on stated CHANELL, selected on 09/13/2024 Assigned GA 12 w + 2 d Assigned CHANELL: 03/26/2025 General Evaluation Cardiac activity present Placenta: posterior Cord vessels: 3 vessel cord Amniotic fluid: normal amount Biometry Standard FHR 153 bpm CRL 70.1 mm 13w 1d 95% Hadlock First Trimester Anatomy Calvarium: normal Falx cerebri: normal Choroid plexus: normal Profile: normal Nasal bone: normal Retronasal triangle: normal Maxilla: normal Mandible: normal Nuchal translucency: Unremarkable Situs: normal Cardiac position: normal Cardiac axis: normal 4-chamber view: visualized 4-chamber view with color: visualized 2-[id number]-nkxlgti view: normal Abdominal cord insertion: normal Stomach: normal Kidneys: visualized Bladder: normal Color doppler of perivesical umbilical arteries: normal Vertebral alignment: normal Arms: normal Hands: normal Legs: normal Feet: normal Maternal Structures Uterus / Cervix Uterus: Visualized Uterus length 124 mm Uterus width 105 mm Uterus height 92 mm Uterus Vol 628.4 cm Ovaries / Tubes / Adnexa Rt ovary: Visualized Rt ovary D1 30 mm Rt ovary D2 27 mm Rt ovary D3 15 mm Rt ovary Vol 6.1 cm Lt ovary: Visualized Lt ovary D1 30 mm Lt ovary D2 20 mm Lt ovary D3 13 mm Lt ovary Vol 4.1 cm Performed By: Hussein Perkins RDMS, RVT Read By: Stephani Cano M.D. MATERNAL MEDICINE [facility] Radiology Study observation (narrative) [facility] HBV surface Ag Ser Qlon HBV surface Ag Ql (S) Negative Normal Negative [facility] Comment on above: Order Comment: Speci men Type: BLOOD SPECIMEN [facility] Address: [address] [place] [address] Performed By: #### G LTGST #### [facility] CLIA [id number] [address] [place] [address] [place] HCV Ab Ser Qlon 09-13-2024 HCV Ab Ql (S) Positive Abnormal Negative [facility] Comment on above: Order Comment: Speci men Type: BLOOD SPECIMENOrdering Facility: [facility] Address: [address] [place] [address] Performed By: #### 1 1011-4, 01585-3 ####[facility] [id number] [place] [address] [place] HCV RNA YELENA+probe Qnon 09-13 HCV RNA YELENA+probe Ql Not detected Normal Not detected [facility] Comment on above: Order Comment: Speci men Type: BLOOD SPECIMENOrdering Facility: [facility] Address: [address] [place] [address] Performed By: #### 1 1011-4, 35283-3 ####[facility] [id number] [facility] [id number] [place] [address] [place] HIV 1+2 Ab IA Qlon 5 HIV 1 and 2 Ab IA.rapid Nom (S/P/Bld) Normal [facility] Comment on above: Order Comment: Speci men Type: BLOOD SPECIMEN [facility] Address: [address] [place] [address] Result Comment: Test not indicated. Performed By: #### G LTGST #### [facility] [id number] [address] [place] [address] OF [facility] HIV 1+2 Ab+HIV1 p24 Ag IA Ql Non-Reactive Normal Nonreactive [facility] Comment on above: Order Comment: Speci men Type: BLOOD SPECIMEN [facility] Address: [address] [place] [address] Performed By: #### G LTGST #### [facility] [id number] [address] [place] [address] [place] HIV immunoassay testing algorithm interpretation (S/P/Bld) [Interp] Normal [facility] Comment on above: Order Comment: Speci men Type: BLOOD SPECIMEN [facility] Address: [address] [place] [address] Result Comment: No e vidence of HIV-1 or HIV-2 infection. Should recent infection be suspected, repeat testing may be considered 2-3 weeks after this draw. [place] Rev. Code 3701.243(E): This information has been disclosed to you from confidential records protected from disclosure by state law. ???You shall make no further disclosure of this information without the specific, written, and informed release of the individual to whom it pertains or as otherwise permitted by state law. A general authorization for the release of medical or other information is not sufficient for the purpose of the release of HIV test results or diagnoses. Performed By: #### G LTGST #### [facility] [id number] [address] [place] [address] [place] HbA1c (Bld)on 09-13-2024 Average glucose Estimated from glycated hemoglobin (Bld) [Mass/Vol] 103 mg/dL Normal [facility] Comment on above: Order Comment: Speci men Type: BLOOD SPECIMENOrdering Facility: [facility] Address: [address] [place] [address] Result Comment: eAG: (Estimated average glucose) is a calculated value from HgbA1c and is sales representative metals of the average blood glucose level in the last 2-3 month period. Performed By: #### 5 5454-3 ####[facility] [id number] [address] STATES OF [facility] HbA1c (Bld) [Mass fraction] 5.2 % Normal 4.3-5.6 [facility] Comment on above: Order Comment: Speci men Type: BLOOD SPECIMENOrdering Facility: [facility] Address: [address] [place] [address] Result Comment: [place] Diabetes Association guidelines indicate that patients with HgbA1c in the range 5.7-6.4% are at increased risk for development of diabetes, and intervention by lifestyle modification may be beneficial. HgbA1c greater or equal to 6.5% is considered diagnostic of diabetes. Performed By: #### 5 5454-3 ####[facility] [id number] [place] [address] [place] [id number] PLUSon 09-13-2024 Cell-free DNA./Cell-free DNA.total Dosage of chromosome-specific cfDNA (cfDNA) [Molar fraction] 13% Normal [facility] Comment on above: Order Comment: Speci men Type: BLOOD SPECIMEN [facility] Address: [address] [place] [address] Performed By: #### G LTGST #### [facility] CLIA [id number] [address] [place] [address] Chr 13+18+21+X+Y aneuploidy Dosage of chromosome-specific cfDNA Ql (cfDNA) Negative Normal [facility] Comment on above: Order Comment: Speci men Type: BLOOD SPECIMEN [facility] Address: [address] [place] [address] Performed By: #### G LTGST #### [facility] CLIA [id number] [address] [place] [address] Chr 21 trisomy Dosage of chromosome-specific cfDNA Ql (cfDNA) Negative Normal [facility] Comment on above: Order Comment: Speci men Type: BLOOD SPECIMEN [facility] Address: [address] [place] [address] Performed By: #### G LTGST #### [facility] CLIA [id number] [address] [place] [address] ADAL Chr X and Y aneuploidy risk Sequencing Ql (cfDNA) [Interp] Not detected Normal [facility] Comment on above: Order Comment: Speci men Type: BLOOD SPECIMEN [facility] Address: [address] [place] [address] Result Comment: Not Detected Not Detected Performed By: #### G LTGST #### [facility] CLIA [id number] [address] [place] [address] OF ADAL Citation Frantz (Reference lab test) Comment Normal [facility] Comment on above: Order Comment: Speci men Type: BLOOD SPECIMEN [facility] Address: [address] [place] [address] Result Comment: 1. Leandro VEGAS, et al. Patricia Med. 2012;14(3):296-305. 2. Rahul LANDON et al. Prenat Diag. 2013;33(6):591-597. 3. Ebenezer C, et al. Clin Chem. 2015 Apr;61(4):608-616. 4. Markus VEGAS et al. Patricia Med. 2011;13(11):913-920. 5. ACOG/SMFM Practice Bulletin No. 226, Jun 2020. Performed By: #### G LTGST #### [facility] CLIA [id number] [address] [place] [address] Gestational age Estimated from conception date [place] Normal [facility] Comment on above: Order Comment: Speci men Type: BLOOD SPECIMEN [facility] Address: [address] [place] [address] Performed By: #### G LTGST #### [facility] CLIA [id number] [address] [place] [address] OF ADAL GESTATIONALAGE AGE > OR = 9W Yes Normal [facility] Comment on above: Order Comment: Speci men Type: BLOOD SPECIMEN [facility] Address: [address] [place] [address] Performed By: #### G LTGST #### [facility] CLIA [id number] [address] [place] [address] OF [facility] Laboratory comment Frantz (Report) Comment Normal [facility] Comment on above: Order Comment: Speci men Type: BLOOD SPECIMEN [facility] Address: [address] [place] [address] Result Comment: The MaterniT(R) 21 PLUS laboratory-developed test (LDT) analyzes circulating cell-free DNA from a maternal blood sample. This test is used for screening purposes and not diagnostic. Clinical correlation is recommended. Validation data on twin pregnancies is limited and the ability of this test to detect aneuploidy in higher multiple gestations has not yet been validated. Performed By: #### G LTGST #### [facility] CLIA [id number] [address] OF ADAL director of cardiology service line name Nom (Provider) Comment Normal [facility] Comment on above: Order Comment: Temitope henry Type: BLOOD SPECIMEN [facility] Address: [address] [place] [address] Result Comment: This specimen showed an expected representation of chromosome 21, 18 and 13 material. Clinical correlation is suggested. Comment Salvador Julian MD, PhD, Director, [employer] Performed By: #### G LTGST #### [facility] CLIA [id number] [address] LIMITATIONS OF THE TEST Comment Normal [facility] Comment on above: Order Comment: Temitope henry Type: BLOOD SPECIMEN [facility] Address: [address] [place] [address] Result Comment: Rhonda wagner the results of these tests are highly reliable, discordant results, including inaccurate sex prediction, may occur due to placental, maternal, or mosaicism or neoplasm; vanishing twin; prior maternal organ transplant; or other causes. These tests are screening tests and not diagnostic; they do not replace the accuracy and precision of diagnosis with CVS or amniocentesis. A patient with a positive test result should be referred for genetic counseling and offered invasive diagnosis for confirmation of test results.[5] The results of this testing, including the benefits and limitations, should be discussed with a qualified healthcare provider. management decisions, including termination of the , should not be based on the results of these tests alone. The healthcare provider is responsible for the use of this information in the management of their patient. Sex chromosomal aneuploidies are not reportable for known multiple gestations. A negative result does not ensure an unaffected nor does it exclude the possibility of other chromosomal abnormalities or defects which are not a part of these tests. An uninformative result may be reported, the causes of which may include, but are not limited to, insufficient sequencing coverage, noise or artifacts in the region, amplification or sequencing bias, or insufficient fraction. These tests are not intended to identify pregnancies at risk for neural tube defects or ventral wall defects. Testing for whole chromosome abnormalities (including sex chromosomes) and for subchromosomal abnormalities could lead to the potential discovery of both and maternal genomic abnormalities that could have major, minor, or no, clinical significance. Evaluating the significance of a positive or a non-reportable result may involve both invasive testing and additional studies on the mother. Such investigations may lead to a diagnosis of maternal chromosomal or subchromosomal abnormalities, which on occasion may be associated with benign or malignant maternal neoplasms. These tests may not accurately identify triploidy, balanced rearrangements, or the precise location of subchromosomal duplications or deletions; these may be detected by diagnosis with CVS or amniocentesis. The ability to report results may be impacted by maternal BMI, maternal weight, maternal systemic lupus erythematosus (SLE) and/or by certain pharmaceutical agents such as low molecular weight heparin (for example: Lovenox(R), Xaparin(R), Clexane(R) and Fragmin(R)). Performed By: #### G LTGST #### [facility] [id number] [address] [place] [address] Monosomy X risk Dosage of chromosome-specific cfDNA Ql (Plasma cell-free+WBC DNA) [Interp] Not detected Normal [facility] Comment on above: Order Comment: Speci men Type: BLOOD SPECIMEN [facility] Address: [address] [place] [address] Performed By: #### G LTGST #### [facility] [id number] [address] [place] [address] NEGATIVE PREDICTIVE VALUE Note Normal [facility] Comment on above: Order Comment: Speci men Type: BLOOD SPECIMEN [facility] Address: [address] [place] [address] Result Comment: The Negative Predictive Value (NPV) for trisomy 21, 18, and 13 is greater than 99%. The NPV for SCA and ESS cannot be calculated as SCA and ESS are only reported when an abnormality is detected. Performed By: #### G LTGST #### [facility] [id number] [address] [place] [address] NOTE Comment Normal [facility] Comment on above: Order Comment: Temitope henry Type: BLOOD SPECIMEN [facility] Address: [address] [place] [address] Result Comment: See Notes [employer] is a subsidiary of [employer], using the brand LabDecalog. This test was developed and its performance characteristics determined by [employer]. It has not been cleared or approved by the Food and Drug Administration. This laboratory is certified under the Clinical Laboratory Improvement Amendments (CLIA) as qualified to perform high complexity clinical laboratory testing and accredited by the College [employer] [place] [employer] (CAP). If there is future clinical need for adding MaterniT GENOME testing, this specimen will be available until term. [facility] samples will not be retained beyond 60 days. [facility] patients will have to send a new sample for re-sequencing ([facility] Test Code: [id number]). Performed By: #### G LTGST #### [facility] CLIA [id number] [address] [place] [address] PERFORMANCE CHARACTERISTICS Note Normal [facility] Comment on above: Order Comment: Temitope henry Type: BLOOD SPECIMEN [facility] Address: [address] [place] [address] Result Comment: ! Sex ! Accuracy: 99.4% ! ! ! ! Region (associated syndrome) ! Est. Sens# ! Est. Spec ! ! ! ! Trisomy 21 (Down Syndrome) ! 99.1% ! 99.9% ! ! ! ! Trisomy 18 (Lau Syndrome) ! >99.9% ! 99.6% ! ! ! ! Trisomy 13 (Patau Syndrome) ! 91.7% ! 99.7% ! ! ! ! Sex Chromosome Aneuploidies## ! 96.2% ! 99.7% ! ! ! * As reported in [facility] database nstd37 [https://www.ncbi.nlm.nih.gov/dbvar/studies/nstd37/ ] # Estimated Sensitivity. Sensitivity estimated across the observed size distribution of each syndrome [per [facility] database nstd37] and across the range of fractions observed in routine clinical NIPT. Actual sensitivity can also be influenced by other factors such as the size of the event, total sequence counts, amplification bias, or sequence bias. ## [place] gestation only. Performed By: #### G LTT #### [facility] [id number] [address] [place] [address] [place] POSITIVE PREDICTIVE VALUE N/A Normal [facility] Comment on above: Order Comment: Temitope henry Type: BLOOD SPECIMEN [facility] Address: [address] [place] [address] Performed By: #### G LTGST #### [facility] [id number] [address] [place] [address] [place] Reference Lab Test Method Comment Normal [facility] Comment on above: Order Comment: Speci men Type: BLOOD SPECIMEN [facility] Address: [address] [place] [address] Result Comment: See Notes Circulating cell-free DNA was purified from the plasma component of maternal blood. The extracted DNA was then converted into a genomic DNA library for aneuploidy analysis of chromosomes 21, 18, and 13 via next generation sequencing.[1] Optional findings based on the test order include sex chromosome aneuploidy (SCA)[2], and enhanced sequencing series (ESS)[3], which will only be reported on as an additional finding when an abnormality is detected. SCA testing includes information on X and Y representation, while ESS testing includes deletions in selected regions (22q, 15q, 11q, 8q, 5p, 4p, 1p) and trisomy of chromosomes 16 and 22. Performed By: #### G LTGST #### [facility] [id number] [address] [place] [address] [place] Sex Dosage of chromosome-specific cfDNA Nom (cfDNA) Comment Normal [facility] Comment on above: Order Comment: Speci men Type: BLOOD SPECIMEN [facility] Address: [address] [place] [address] Result Comment: Cons istent with Male Performed By: #### G LTGST #### [facility] [id number] [address] [place] [address] [place] Test performance information Frantz (Unsp spec) Comment Normal [facility] Comment on above: Order Comment: Speci men Type: BLOOD SPECIMEN [facility] Address: [address] [place] [address] Result Comment: The performance characteristics of the MaterniT(R) 21 PLUS laboratory-developed test (LDT) have been determined in a clinical validation study with women at increased risk for chromosomal aneuploidy.[1-4] Performed By: #### G LTGST #### [facility] CLIA [id number] [address] [place] [address] [place] Trisomy 13 risk Dosage of chromosome-specific cfDNA Ql (cfDNA) [Interp] Negative Normal [facility] Comment on above: Order Comment: Speci men Type: BLOOD SPECIMEN [facility] Address: [address] [place] [address] Performed By: #### G LTGST #### [facility] CLIA [id number] [address] [place] [address] STATES OF ADAL Trisomy 18 risk Dosage of chromosome-specific cfDNA Ql (Plasma cell-free+WBC DNA) [Interp] Negative Normal [facility] Comment on above: Order Comment: Speci men Type: BLOOD SPECIMEN [facility] Address: [address] [place] [address] Performed By: #### G LTGST #### [facility] [id number] [address] [place] [address] [place] RUBELLA IGG ANTIBODYon 09-13 RUBELLA IGG AB, QUAL Positive Normal Positive [facility] Comment on above: Order Comment: Speci men Type: BLOOD SPECIMENOrdering Facility: [facility] Address: [address] [place] [address] Result Comment: The result suggests recent or past exposure to Rubella virus or history of Rubella vaccination. Positive result may also be seen due to presence of passively-transferred antibodies. Please correlate with patient's history. Performed By: #### R UBIGG ####[facility] [id number] [place] [address] [place] Reagin and Treponema pallidu m IgG and IgM [Interp]on 09-13-2024 T. pallidum IgG+IgM IA Ql (S) Non-Reactive Normal Nonreactive [facility] Comment on above: Order Comment: Speci men Type: BLOOD SPECIMEN [facility] Address: [address] [place] [address] Performed By: #### G LTGST #### [facility] CLIA [id number] [address] [place] [address] [place] Reagin+T pallidum IgG+IgM Se rPl-Impon 09-13-2024 Reagin and Treponema pallidum IgG and IgM [Interp] Cannot exclude recent Treponemal infection if specimen collected within 7-10 days after appearance of suspect lesions or 2-3 weeks after an exposure. Clinical correlation is required. Normal [facility] Comment on above: Order Comment: Speci men Type: BLOOD SPECIMEN [facility] Address: [address] [place] [address] Performed By: #### G LTGST #### [facility] CLIA [id number] [address] [place] [address] [place] TYPE + SCREEN PRENATALon ABO O Normal [facility] Comment on above: Order Comment: Speci men Type: BLOOD SPECIMENOrdering Facility: [facility] Address: [address] [place] [address] Performed By: #### T SPN, %JETHRO, BBABINT, ABT ####CC MAIN BLOOD BANKCLIA [id number] [place] [address] [place] Rh Nom (Bld) Positive Normal [facility] Comment on above: Order Comment: Speci men Type: BLOOD SPECIMENOrdering Facility: [facility] Address: [address] [place] [address] Performed By: #### T SPN, %JEHTRO, BBABINT, ABT ####CC MAIN BLOOD BANKCLIA [id number] [place] [id number] [place] TYPE AND SCREEN EXPIRATION 09/16/2024 23:59 Normal [facility] Comment on above: Order Comment: Speci men Type: BLOOD SPECIMENOrdering Facility: [facility] Address: [address] [place] [address] Performed By: #### T SPN, %JETHRO, BBABIMADDY, ABT ####CC MAIN BLOOD BANKCLIA [id number] [place] [id number] OF [facility] Vidya 08-04-2024 CNPN Telephone ([facility]) -------- CALIN GRAF ([id number]) 1995 F Date Time Provider Department 08/04/24 RYLEE SCOTT [facility] During your visit today, we recorded the following information about you: Nicole Ambriz RN 08/04/2024 9:37 AM Signed 1st risk assessment form submitted 08/04/24 Nicole Ambriz RN Allergies As of Date: 08/04/2024 Noted Allergy Reaction LATEX 01/06/2016 4 - Hives 7 - Swelling SHELLFISH DERIVED 01/06/2016 2 - Rash 7 - Swelling Date Reviewed: 08/02/2024 Reviewed by: Rylee Scott APRN.ELECTRIC LOCOMOTIVE CRANE OPERATOR - Fully Assessed Reason for Visit: PRAF [4193] Prescriptions as of 08/04/2024 - aspirin, enteric coated (ECOTRIN LOW STRENGTH) 81 mg EC tablet Take 1 tablet by mouth once daily. - vit 17-lavt-ysffy-dha (SELECT-OB+DHA) 29 mg iron-1 mg -250 mg Take by mouth as directed. Take 1 tablet and 1 capsule by mouth daily. 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 Encounter for supervision of high risk pregnanc*01/09/2016 History of chlamydia [Z86.19] 01/09/2016 Trichomoniasis [A59.9] 01/09/2016 01/02/2022 Chlamydia infection, current [O98.819*01/14/2016 01/14/2016 Abdominal pain affecting , antepartum *04/22/2016 01/02/2022 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] 04/22/2016 01/02/2022 Marijuana smoker [F12.90] 04/22/2016 01/02/2022 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] 04/22/2016 01/02/2022 Tobacco smoking complicating in first*04/29/2016 Positive GBS test [B95.1] 05/04/2016 01/02/2022 History of drug abuse (HCC) [F19.11] 01/02/2022 Gonorrhea [A54.9] 01/09/2022 02/16/2023 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] 01/13/2022 08/02/2024 Trichomonas infection [A59.9] 01/22/2022 02/16/2023 Red blood cell antibody positive [R76.8] 02/27/2022 09/09/2022 Depression [F32.A] 02/16/2023 Anxiety disorder [F41.9] 02/16/2023 Marijuana use during [O99.320, F12.90]08/02/2024 History of hepatitis C [Z86.19] 08/02/2024 History of herpes genitalis [Z86.19] 08/02/2024 Family history of congenital heart defect [Z82.*08/02/2024 History of depression [Z87.59, Z86.5* History of trichomoniasis [Z86.19] 08/02/2024 History of blood transfusion [Z92.89] History of miscarriage [Z87.59] 08/02/2024 History of trauma [Z87.828] 08/02/2024 Nausea and vomiting during [O21.9] 08/02/2024 Encounter Status:Closed by NICOLE AMBRIZ on 08/04/24 Normal [facility] Bacteria Ur Culton 4 Bacteria identified Cx Nom (U) ORGANISM ID: 1 <10,000 CFU/ml Normal urogenital emigdio Normal [facility] Comment on above: Performed By: #### 6 30-4 ####[facility] [id number] [address] STATES OF [place]AL C. trachomatis+N. gonorrhoea e DNA YELENA+probe Ql (Unsp spec)on 08-02-2024 C. trachomatis rRNA YELENA+probe Ql (Unsp spec) Not detected Normal Not detected [facility] Comment on above: Order Comment: Speci men Type: BLOOD SPECIMEN [facility] Address: [address] [place] [address] Performed By: #### G LTGST #### [facility] [id number] [address] [place] [address] N. 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 Transvaginal ultrasound examination. View: Adequate visualization [place] . Number of embryos: 1 Dating LMP on: 06/19/2024 GA by LMP 6 w + 2 d CHANELL by LMP: 03/26/2025 Ultrasound examination on: 08/02/2024 GA by U/S based upon: CRL GA by U/S 6 w + 3 d CHANELL by U/S: 03/25/2025 Assigned: based on the LMP, selected on 08/02/2024 Assigned GA 6 w + 2 d Assigned CHANELL: 03/26/2025 Biometry Standard FHR 134 bpm CRL 6.4 mm 6w 3d 94% Hadlock Assessment Gestational sac: visualized Location: intrauterine Yolk sac: visualized Embryo: visualized CRL 6.4 mm 6w 3d 94% Hadlock Cardiac activity: present FHR 134 bpm General Evaluation Cardiac activity present. FHR 134 bpm Performed By: Rylee Scott NP Read By: Rylee Scott NP MATERNAL MEDICINE [facility] Radiology Study observation (narrative) [facility] TRICHOMONAS VAGINALIS NAATon 08-02-2024 T. vaginalis DNA YELENA+probe Ql (Unsp spec) Not detected Normal Not detected [facility] Comment on above: Order Comment: Speci men Type: BLOOD SPECIMEN [facility] Address: [address] [place] [address] Performed By: #### G LTGST #### [facility] [id number] [address] [place] [address] [place] Vidya 07-25-2024 CNPN Telephone (OBGYWM) -------- CALIN GRAF ([id number]) 1995 F Date Time Provider Department 07/25/24 RYLEE SCOTT During your visit today, we recorded the following information about you: Makayla Workman RN 07/25/2024 3:33 PM Signed Left message for patient to return phone call to complete nurse intake questions for her upcoming appointment. Patient has an appointment with Rylee Scott for NOB appointment. I am available on 07/27 or you can transfer to Ynes Wiley RN 07/25/2024 3:46 PM Signed Patient called back and scheduled for 9:30am phone call on 07/27 with Angélica. Ynes Jones RN Allergies As of Date: 07/25/2024 Noted Allergy Reaction LATEX 01/06/2016 4 - Hives 7 - Swelling SHELLFISH DERIVED 01/06/2016 2 - Rash 7 - Swelling Date Reviewed: 07/05/2024 Reviewed by: Gricelda Pepper, MD ALLERGY IMMUNOLOGY.ELECTRIC LOCOMOTIVE CRANE OPERATOR - Fully Assessed Reason for Visit: Appointment [186] Prescriptions as of 07/25/2024 - benzonatate (TESSALON PERLES) 100 mg capsule Take 1 capsule by mouth three times a day as needed for up to 12 doses. - atomoxetine (STRATTERA) 40 mg capsule Take 40 mg by mouth once daily. - albuterol HFA (PROVENTIL HFA, VENTOLIN HFA) 90 mcg/actuation inhaler Inhale 2 Puffs as instructed every 4 hours as needed for wheezing/shortness of breath. - Norethindrone, Contraceptive, (ORTHO MICRONOR) 0.35 mg tablet Take 1 tablet by mouth once daily. - busPIRone (BUSPAR) 10 mg tablet Take 1 tablet by mouth twice daily. - glecaprevir-pibrentasvir (MAVYRET) 100-40 mg tablet Take 3 tablets by mouth once daily. Take with food. 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 09/09/2022 Supervision of other high risk pregnancies, fir*01/09/2016 09/09/2022 History of chlamydia [Z86.19] 01/09/2016 01/02/2022 Trichomoniasis [A59.9] 01/09/2016 01/02/2022 Chlamydia infection, current [O98.819*01/14/2016 01/14/2016 Abdominal pain affecting , antepartum *04/22/2016 01/02/2022 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] 04/22/2016 01/02/2022 Marijuana smoker [F12.90] 04/22/2016 01/02/2022 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] 04/22/2016 01/02/2022 Tobacco use in , antepartum [O99.330] 04/29/2016 09/09/2022 Positive GBS test [B95.1] 05/04/2016 01/02/2022 History of drug abuse (HCC) [F19.11] 01/02/2022 Gonorrhea [A54.9] 01/09/2022 02/16/2023 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] 01/13/2022 Trichomonas infection [A59.9] 01/22/2022 02/16/2023 Red blood cell antibody positive [R76.8] 02/27/2022 09/09/2022 Depression [F32.A] 02/16/2023 Anxiety disorder [F41.9] 02/16/2023 Obesity, Class I, BMI 30-34.9 [E66.811] 02/16/2023 Encounter Status:Closed by YNES JONES on 07/25/24 [facility] Delia 07-05-2024 CNOV Office Visit (UCWSTR ) -------- CALIN GRAF ([id number]) 1995 F Date Time Provider Department 07/05/24 9:45 AM GRICELDA PEPPERWSTR During your visit today, we recorded the following information about you: Temperature Pulse Respiration Blood pressure 97.2 degrees 77/minute 18/minute 119/80 Weight 78.2 kg Gricelda Pepper APRN.CNP 07/05/2024 10:01 AM Signed This note was created using [employer]. Subjective Calin Graf is a 29 year old female. HPI Pt has had a cough for several days. Review of Systems Constitutional: Negative for fever. Respiratory: Positive for cough. Neurological: Positive for headaches. Objective BP 119/80 Pulse 77 Temp 36.2 ?C (97.2 ?F) Resp 18 Wt 78.2 kg (172 lb 6.4 oz) LMP 09/21/2023 (Approximate) SpO2 99% BMI 29.07 kg/m? Physical Exam Vitals and nursing note reviewed. Constitutional: General: She is not in acute distress. Appearance: Normal appearance. She is not ill-appearing. HENT: Head: Normocephalic. Mouth/Throat: Mouth: Mucous membranes are moist. Eyes: Conjunctiva/sclera: Conjunctivae normal. Cardiovascular: Rate and Rhythm: Normal rate and regular rhythm. Pulmonary: Effort: Pulmonary effort is normal. Breath sounds: Normal breath sounds. Musculoskeletal: General: Normal range of motion. Cervical back: Normal range of motion. Skin: General: Skin is warm and dry. Neurological: General: No focal deficit present. Mental Status: She is alert. Psychiatric: Mood and Affect: Mood normal. Behavior: Behavior normal. Assessment and Plan ASSESSMENT/PLAN: 1. Acute cough - ICD9: 786.2, ICD10: R05.1 Discussed with patient that her symptoms seem viral in origin. COVID test was performed per her request and she was given a prescription for Tessalon Perles for cough. She is instructed to return if symptoms worsen especially if she were to develop a fever. - COVID AND INFLUENZA A/B AND RSV PCR, ROUTINE - BENZONATATE 100 MG CAPSULE Gricelda Pepper APRN.CNP Allergies As of Date: 07/05/2024 Noted Allergy Reaction LATEX 01/06/2016 4 - Hives 7 - Swelling SHELLFISH DERIVED 01/06/2016 2 - Rash 7 - Swelling Date Reviewed: 07/05/2024 Reviewed by: Gricelda Pepper APRN.CNP - Fully Assessed Reason for Visit: Cough [28] Cmt: Chest congestion, runny nose, AGGARWAL x2 days Primary Visit Diagnosis:Acute cough [R05.1] Order(s):COVID AND INFLUENZA A/B AND RSV PCR, ROUTINE [SQCVFL] Order #: [id number]. #:[id number] benzonatate (TESSALON PERLES) 100 mg capsuleTake 1 capsule by mouth three times a day as needed for up to 12 doses.Disp: 12 capsuleRfl: 0 Prescriptions as of 07/05/2024 - benzonatate (TESSALON PERLES) 100 mg capsule Take 1 capsule by mouth three times a day as needed for up to 12 doses. -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 width (RBC) [Entitic vol] 42.8 fL 35.1-43.9 [facility] Work Phone: [phone] Erythrocyte distribution width (RBC) [Ratio] 12.8 % 11.6-14.6 [facility] Work Phone: [phone] Immature granulocytes/100 WBC (Bld) 0.500 % 0.0-0.9 [facility] Work Phone: [phone] Comment on above: IG% - Immature Granu locytes (promyelocytes, myelocytes and metamyelocytes) > 1% indicates that a LEFT SHIFT is Present. MCH (RBC) [Entitic mass] 29.8 pg 27.0-32.0 [facility] Work Phone: Nucleated RBC/100 WBC (Bld) [Ratio] 0 % 0-5 [facility] Work Phone: MCHC Auto (RBC) [Mass/Vol]on 08-05-2022 MCHC (RBC) [Mass/Vol] 32.9 g/dL 32-36 [facility] Work Phone: No Panel Informationon 08-05 MDMA (Ecstasy) Screen Negative < 500 ng/mL [facility] Work Phone: Urine Barbiturates Screen Negative < 200 ng/mL [facility] Work Phone: Urine Drug Screen Comment [facility] Work Phone: Comment on above: CONFIRMATORY TESTING FOR ALL POSITIVE URINE DRUG SCREENRESULTS WILL ONLY BE SENT OUT UPON PHYSICIAN ORDER. VISTA Urine Drug Screen methods provide only preliminaryanalytical test results. A more specific alternate chemicalmethod must be used in order to obtain a confirmedanalytical result. Gas chromatography/mass spectrometery(GC/MS) is the preferred confirmatory method. Clinicalconsideration and professional judgement should be appliedto any drug of abuse test result, particularly whenpreliminary positive results are used. URINE TCA TESTING MUST BE ORDERED SEPARATELY. USE TESTMNEMONIC: [facility] Urine Methadone Screen Negative < 300 ng/mL [facility] Work Phone: Platelets bldon 08-05-2022 Platelets (Bld) [#/Vol] 251 10*3/uL 150-450 [facility] Work Phone: Type AND Screenon 08-05-2022 Ab SCREEN GEL Positive Abnormal [facility] Comment on above: Order Comment: Labor Performed By: #### B RC, L100.0100, BPAN, BTS #### [facility] [address] [place], [address] ABO and Rh group Nom (Bld) Blood group O Rh(D) positive Normal [facility] Comment on above: Order Comment: Labor Performed By: #### B RC, L100.0100, BPAN, BTS #### [facility] [address] [place], [address] Ur Drg Scn w/Rflx AMPH Confi rmon 08-05-2022 Amphetamines Ql (U) Negative Normal <1000 ng/mL [facility] Comment on above: Performed By: #### L 505.5002 #### [facility] [address] [place], [address] BARBITIURATES Negative Normal < 200 ng/mL [facility] Comment on above: Performed By: #### L 505.5002 #### [facility] [address] [place], [address] BENZODIAZIPINE Negative Normal < 200 ng/mL [facility] Comment on above: Performed By: #### L 505.5002 #### [facility] [address] [place], [address] Cocaine Ql (U) Negative Normal < 300 ng/mL [facility] Comment on above: Performed By: #### L 505.5002 #### [facility] [address] [place], [address] ECSTACY Negative Normal < 500 ng/mL [facility] Comment on above: Performed By: #### L 505.5002 #### [facility] [address] [place], [address] Methadone Ql (U) Negative Normal < 300 ng/mL [facility] Comment on above: Performed By: #### L 505.5002 #### [facility] [address] [place], [address] Opiates Ql (U) Negative Normal < 300 ng/mL [facility] Comment on above: Performed By: #### L 505.5002 #### [facility] [address] [place], [address] PCP Negative Normal < 25 ng/mL [facility] Comment on above: Performed By: #### L 505.5002 #### [facility] [address] [place], [address] THC Negative Normal < 50 ng/mL [facility] Comment on above: Performed By: #### L 505.5002 #### [facility] [address] [place], [address] VISTA UDS PH 6 Normal [facility] Comment on above: Performed By: #### L 505.5002 #### [facility] [address] [place], [place], [address] Urine amphetamine measuremen t (moles/volume)on 08-05-2022 Amphetamine (U) [Moles/Vol] Negative <1000 ng/mL [facility] Work Phone: Urine phencyclidine (PCP) de tectionon 08-05-2022 Phencyclidine Ql (U) Negative < 25 ng/mL [facility] Work Phone: BIOPHYSICAL PROFILE US [facility] 07-29-[address] [facility] URINE OB DIP B/Oon 2 Glucose Ql (U) Negative Neg mg/dL [facility] Protein.monoclonal (U) [Mass/Vol] Negative Neg mg/dL [facility] BIOPHYSICAL PROFILE US [facility] 07-21-[address] [facility] URINE OB DIP B/Oon 2 Glucose Ql (U) Negative Neg mg/dL [facility] Protein.monoclonal (U) [Mass/Vol] Negative Neg mg/dL [facility] BIOPHYSICAL PROFILE US [facility] 07-14-[address] [facility] OBSTETRIC ULTRASOUND WHIon 1 09-06-[address] [facility] URINE OB DIP B/Oon 2 Glucose Ql (U) Negative Neg mg/dL [facility] Protein.monoclonal (U) [Mass/Vol] Negative Neg mg/dL [facility] Bilirubin Test strip Ql (U)o n 06-27-2022 Bilirubin Ql (U) Negative Negative [facility] Work Phone: Ketones Test strip Ql (U)on 06-27-2022 Ketones Ql (U) 150 mg/dl Negative [facility] Work Phone: Comment on above: CRITICAL VALUE VERIF IED. CALLED TO BARBARA TRUJILLO RN (WP)06/27/22 1701 Milo Lara.RESULTS READ BACK BY SAME . CRITICAL VALUE *H Nitrite Test strip Ql (U)on 06-27-2022 Nitrite Ql (U) Negative Negative [facility] Work Phone: OB Triage Physician Noteon 1 OB Triage Physician Note [facility] Medical Records Department [address] [place] [address] OB Triage Physician Note 06/27/22 1900 MR#: [id number] Acct: [id number] Name: CALIN GRAF Rep #: [id number] : 1995 27 From: Nelda Lugo CNM PCP: Care Physician,No Primary Status:DEP CLI Y Location: [email or web address] HPI - General HPI Narrative CALIN GRAF, is a 27 F at 31.6 weeks gestation who presents to triage with feeling period cramps and sharp shooting pains that go into vagina. Denies contractions, loss of fluid or vaginal bleeding. Positive movement. She denies any dysuria or hematuria. Reports drinking tons of water and juice daily. History of labor with first that ended in a term delivery. Maternal Data Information CHANELL Calculator Estimated Delivery Date Method Current WG Current Estimate 08/23/22 Manual 31w 6d PFSH PFS Medical History Encounter for screening laboratory testing for COVID-19 virus Lab test negative for COVID-19 virus Home Medications ondansetron HCl 4 mg tablet 4 mg PO Q8 PRN Nausea 01/26/22 [History Last Taken Unknown] PNV comb no.8-iron ps cmplx,aspgly-folic acid 22 mg-6 mg-1 mg tablet 1 tab PO DAILY prenancy 06/27/22 [History Last Taken 06/26/22] Allergy/AdvReac Type Severity Reaction Status Date / Time latex Allergy Hives Verified 05/07/22 23:07 shellfish derived Allergy Anaphylaxis Verified 05/07/22 23:07 Social History Smoking Status: Current every day smoker tobacco type: cigars and e-cigarettes History Elective abortions Hx Para 1 Spontaneous abortions Hx # Term Pregnancies Ectopic pregnancies Hx # Pregnancies Multiple births # of living children ROS Eyes Eyes: Denies blurry vision Cardiovascular Cardiovascular: Reports none; Denies chest pain at rest, chest pain with activity or dizziness Respiratory/Chest Respiratory/Chest: Denies cough or dyspnea Gastrointestinal Gastrointestinal: Reports none and other; Denies diarrhea or vomiting Genitourinary Genitourinary: Denies dysuria Musculoskeletal Musculoskeletal: Reports none Integumentary Integumentary: Reports none; Denies rash Neurologic Neurologic: Denies dizziness, headache(s) or other visual disturbances Psychiatric Psychiatric: Reports none Physical Exam Const alert and no apparent distress General Appearance: cooperative Orientation / Consciousness: awake Exam Limitations: no limitations HEENT normocephalic Eyes General Eye: normal appearance of both eyes Neck full ROM Chest inspection of chest normal Resp normal respiratory effort and normal air movement Effort and Inspection: symmetric chest movement Auscultation: clear to auscultation bilaterally Cardio regular rate GI soft to palpation, non-tender and non-distended Inspection: and other Back/Spine normal ROM Extremity full ROM, normal capillary refill and no calf tenderness Skin no rashes or lesions noted Neuro oriented x3 and CN's II-XII intact bilaterally Psych mental status grossly normal NST FHR Rate Baby A Baseline: 130 Variability:: Absent and Moderate Accelerations:: 15 x 15 Decelerations:: None NST Reactive:: Yes Uterine Activity:: None Assessment Plan (1) Pelvic cramping: (2) Round ligament pain: (3) 31 weeks gestation of : (4) History of labor: PLAN: Plan NST reactive- No contractions noted or palpated UA sent- + for ketones and Leukocyte estrace Patient offered IV fluids for suspected dehydration- refused D/C home with follow up in office Reviewed importance of hydration PTL and kick counts reviewed Dr. Robb notified 06/27/221910 Date Nelda HART Cosigner Signature (if applicable): Date CC: CURT Lugo; No Primary Care Physician Signed Normal [facility] Protein Test strip Ql (U)on 06-27-2022 Protein Ql (U) Negative Negative [facility] Work Phone: Urinalysis, Routine (Dipstic k)on 06-27-2022 KETONE UR 150 mg/dl Abnormal Negative [facility] Comment on above: Order Comment: JUNE CTOR TO SPECIFY Result Comment: CRIT ICAL VALUE VERIFIED. CALLED TO BARBARA TRUJILLO RN (WP) 06/27/22 1701 Milo Lara. RESULTS READ BACK BY SAME . CRITICAL VALUE *H Performed By: #### L 400.2010 #### [facility] [address] [place], [address] BILIRUBIN URINE Negative Normal Negative [facility] Comment on above: Order Comment: JUNE REYNAGAOR TO SPECIFY Performed By: #### L 400.2010 #### [facility] [address] [place], [address] Clarity (U) Clear Normal Clear [facility] Comment on above: Order Comment: JUNE REYNAGAOR TO SPECIFY Performed By: #### L 400.2010 #### [facility] [address] [place], [address] Color (U) Yellow Normal Yellow [facility] Comment on above: Order Comment: JUNE REYNAGAOR TO SPECIFY Performed By: #### L 400.2010 #### [facility] [address] [place], [address] GLUCOSE, UR Normal Normal Normal [facility] Comment on above: Order Comment: JUNE CTOR TO SPECIFY Performed By: #### L 400.2010 #### [facility] [address] [place], [address] LEUK ESTERASE 25 /ul Abnormal Negative [facility] Comment on above: Order Comment: JUNE CTOR TO SPECIFY Performed By: #### L 400.2010 #### [facility] [address] [place], [address] Nitrite Ql (U) Negative Normal Negative [facility] Comment on above: Order Comment: COLLE CTOR TO SPECIFY Performed By: #### L 400.2010 #### [facility] [address] [place], [address] OCCULT BLOOD-UR Negative Normal Negative [facility] Comment on above: Order Comment: COLLE CTOR TO SPECIFY Performed By: #### L 400.2010 #### [facility] [address] [place], [address] pH UR 5.0 Normal 5.0 - 8.0 [facility] Comment on above: Order Comment: JUNE CTOR TO SPECIFY Performed By: #### L 400.2010 #### [facility] [address] [place], [address] PROT DIPSTX Negative Normal Negative [facility] Comment on above: Order Comment: JUNE CTOR TO SPECIFY Performed By: #### L 400.2010 #### [facility] [address] [place], [address] SP.GR. DIPSTX 1.025 Normal 1.002-1.030 [facility] Comment on above: Order Comment: COLLE CTOR TO SPECIFY Performed By: #### L 400.2010 #### [facility] [address] [place], [address] UROBILI Normal Normal Normal [facility] Comment on above: Order Comment: COLLE CTOR TO SPECIFY Performed By: #### L 400.2010 #### [facility] [address] [place], [address] Urine blood detectionon 06-07 RBC Ql (U) Negative Negative [facility] Work Phone: Urine clarityon 06-27-2022 Clarity (U) Clear Clear [facility] Work Phone: Urine color determinationon 06-27-2022 Color (U) Yellow Yellow [facility] Work Phone: Urine glucose detectionon Glucose Ql (U) Normal mg/dl Normal [facility] Work Phone: Urine leukocyte esterase det ection by dipstickon 06-27-2022 Leukocyte esterase Test strip Ql (U) 25 /ul Negative [facility] Work Phone: Urine pHon 06-27-2022 pH (U) 5.0 [pH] 5.0 - 8.0 [facility] Work Phone: Urine specific gravity measu rementon 06-27-2022 Specific gravity (U) [Rel density] 1.025 1.002-1.030 [facility] Work Phone: Urobilinogen Auto test strip Ql (U)on 06-27-2022 Urobilinogen Ql (U) Normal mg/dl Normal [facility] Work Phone: OBSTETRIC ULTRASOUND WHIon [address] [facility] URINE OB DIP B/Oon 2 Glucose Ql (U) Negative Neg mg/dL [facility] Protein.monoclonal (U) [Mass/Vol] Negative Neg mg/dL [facility] URINE OB DIP B/Oon 2 Glucose Ql (U) Negative Neg mg/dL [facility] Protein.monoclonal (U) [Mass/Vol] Negative Neg mg/dL [facility] Chest PA and Lateralon 05-08 Chest PA and Lateral [facility] Imaging Services [address] [place] [address] Chest PA and Lateral MR#: [id number] Acct: [id number] Name: CALIN GRAF Rep #: [id number] : 1995 F 27 From: Jeanmarie garcia MD PCP: Care Physician,No Primary Status: REG ER Study: Chest PA and Lateral Date of Exam: 05/07/22 Exam# [id number] Ordering Dr: Richie Mendoza DO INDICATION: Cough -- Shield abdomen EXAMINATION/TECHNIQUE: X-RAY - XR Chest 2 Views COMPARISON: 03/13/2020 FINDINGS: LINES/DEVICES: None. LUNGS: 5 apical pleural/parenchymal scarring. No consolidation, edema or effusion. No pneumothorax. MEDIASTINUM AND CARDIOVASCULAR STRUCTURES: Cardiac silhouette not enlarged. Central airways and mediastinal contour are unremarkable. BONES AND SOFT TISSUES: Unremarkable. RAD/Chest PA and Lateral IMPRESSION: No acute cardiopulmonary disease. Electronically Signed: Jeanmarie Mon MD at 0:20 EDT , CC: Dr. 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: Signed Normal [facility] Emergency Department Summary on 05-08-2022 Emergency Department Summary [facility] Medical Records Department [address] [place] [address] Emergency Department Summary 05/07/22 MR#: [id number] Acct: [id number] Name: CALIN GRAF Rep #: [id number] : 1995 27 From: Richie Mendoza DO PCP: Care Physician,No Primary Status:DEP ER Location: ED HPI History of Present Illness Chief Complaint: Shortness of Breath Informant: patient Onset/Context/Timing Onset: Days Context: gradual Timing: Continuous Worsened by: Nothing Relieved by: Nothing Associated Symptoms cough, ear pain, subjective and chills; Negative for rhinorrhea, post nasal drip, fever, sore throat, sweats, clear sputum, white sputum, yellow sputum or green sputum Chest Pain: Positive for Sharp Narrative Narrative: Patient presents with shortness of breath that has been getting worse over the past several days. Patient states she has some pain across her lower chest. Patient states it is worse with exhaling. Patient describes it as sharp. Patient admits to a cough but denies any sputum production. Patient denies any fevers. Patient admits to some subjective chills. Patient admits to some nausea and vomiting. Patient states she is 5-1/2 months . Patient denies any abdominal pain. Patient states nothing makes her breathing better and nothing makes it worse. [facility] Medical History Encounter for screening laboratory testing for COVID-19 virus Lab test negative for COVID-19 virus Home Medications metronidazole 500 mg tablet 500 mg PO BID 01/26/22 [History Last Taken Unknown] ondansetron HCl 4 mg tablet 4 mg PO Q8 PRN Nausea 01/26/22 [History Last Taken Unknown] Allergy/AdvReac Type Severity Reaction Status Date / Time latex Allergy Hives Verified 05/07/22 23:07 shellfish derived Allergy Anaphylaxis Verified 05/07/22 23:07 Surgical History no surgical history no surgical history Social History Smoking Status: Current every day smoker tobacco type: cigars and e-cigarettes ROS ROS ED Constitutional Constitutional ED: Denies chills or fever(s) Eyes Eyes: Denies blurry vision or change in vision ENT ENT ED: Denies rhinorrhea or sore throat Cardiovascular Cardiovascular: Reports chest pain; Denies palpitations Respiratory/Chest Respiratory/Chest: Reports cough and dyspnea Gastrointestinal Gastrointestinal: Reports nausea and vomiting Genitourinary Genitourinary ED: Denies dysuria or hematuria Musculoskeletal Musculoskeletal: Denies back pain or neck pain Integumentary Denies abscess or rash Neurologic Neurologic: Denies headache(s) or weakness Allergic/Immunologic Allergic/Immunologic ED: Denies mouth swelling or urticaria EXAM Physical Exam Const Vital Signs: 05/07/22 23:03 05/07/22 23:07 Temperature 98.4 F Temperature Source Oral Pulse Rate 82 Respiratory Rate 16 Respiratory Effort Normal Non-Labored Respiratory Depth Normal Respiratory Pattern Normal Blood Pressure 118/80 Blood Pressure Mean 92 Pulse Ox 98 Oxygen Delivery Method Room Air Room Air Positive well nourished and well developed General Appearance ED: well developed and NAD HEENT Reports moist mucous membranes Neck supple and no JVD Resp normal respiratory effort and clear to auscultation bilaterally Cardio regular rate and regular rhythm GI non-tender Palpation: soft Neuro oriented x3 and CN's II-XII intact bilaterally Psych mental status grossly normal MDM MDM MDM Narrative Medical decision making narrative: PA and lateral chest x-ray was obtained. There are 2 views. On my interpretation, lung higginbotham are clear. There is normal cardiac silhouette. Bony thorax is normal. There is no acute process noted. Radiologist also interpreted the x-ray and agrees. Patient was advised of her findings. Patient was advised that this is most likely a viral illness. Patient was instructed to follow-up with her primary care physician in 5 to 7 days. Patient was instructed to take Tylenol or ibuprofen as needed for any fevers. Patient understood and was agreeable with the plan. All questions were answered. Radiography Chest X-Ray - ED: 2 View, Read by ED Physician, Read by Radiologist and No Acute Disease Diagnostic Testing: Clinical Impression(s) from Imaging Studies Chest X-Ray 05/07/22 23:30 IMPRESSION: No acute cardiopulmonary disease. Electronically Signed: Jeanmarie Mon MD at 0:20 EDT , Discharge Plan Triage Chief Complaint: Shortness of Breath ED Provider: Richie Mendoza Dx/Rx/DC Orders Clinical Impression: Viral (more content not included)... Normal [facility] URINE OB DIP B/Oon 2 Glucose Ql (U) Negative Neg mg/dL [facility] Protein.monoclonal (U) [Mass/Vol] Negative Neg mg/dL [facility] OBSTETRIC ULTRASOUND WHIon 0 03-31-[address] [facility] URINE OB DIP B/Oon 2 Glucose Ql (U) Negative Neg mg/dL [facility] Protein.monoclonal (U) [Mass/Vol] Negative Neg mg/dL [facility] No Panel Informationon 03-12 POC SARS CoV-2 Antigen Negative [facility] Work Phone: Basophil percentageon 2021 Basophil percentage 0 SEEN /hpf 0-5 [facility] Work Phone: Bilirubin Test strip Ql (U)o n 02-27-2022 Bilirubin Ql (U) Negative Negative [facility] Work Phone: Ketones Test strip Ql (U)on 02-27-2022 Ketones Ql (U) Negative Negative [facility] Work Phone: Mucus LM Ql (Urine sed)on Mucus Ql (Urine sed) 0 SEEN /hpf [facility] Work Phone: Nitrite Test strip Ql (U)on 02-27-2022 Nitrite Ql (U) Negative Negative [facility] Work Phone: Protein Test strip Ql (U)on 02-27-2022 Protein Ql (U) Negative Negative [facility] Work Phone: Squamous epithelial cells de tection in urine sediment by light microscopyon 02-27-2022 Epithelial cells.squamous LM Ql (Urine sed) 0 SEEN /hpf 5-10 [facility] Work Phone: Urine blood detectionon 02-05 RBC Ql (U) Negative Negative [facility] Work Phone: RBC Ql (U) 0 SEEN /hpf 0-5 [facility] Work Phone: Urine clarityon 02-27-2022 Clarity (U) Clear Clear [facility] Work Phone: Urine color determinationon 02-27-2022 Color (U) Yellow Yellow [facility] Work Phone: Urine glucose detectionon Glucose Ql (U) Normal mg/dl Normal [facility] Work Phone: Urine leukocyte esterase det ection by dipstickon 02-27-2022 Leukocyte esterase Test strip Ql (U) Negative Negative [facility] Work Phone: Urine pHon 02-27-2022 pH (U) 6.0 [pH] 5.0 - 8.0 [facility] Work Phone: Urine sediment bacteria coun t by microscopy (number/high power field)on 02-27-2022 Bacteria LM.HPF (Urine sed) [#/Area] 0 /[HPF] None Seen [facility] Work Phone: Urine specific gravity measu rementon 02-27-2022 Specific gravity (U) [Rel density] 1.020 1.002-1.030 [facility] Work Phone: Urobilinogen Auto test strip Ql (U)on 02-27-2022 Urobilinogen Ql (U) Normal mg/dl Normal [facility] Work Phone: Hepatic function 2000 panelo n 02-17-2022 Albumin [Mass/Vol] 4.3 g/dL 3.9 - 4.9 g/dL [facility] ALP [Catalytic activity/Vol] 71 U/L 34 - 123 U/L [facility] ALT [Catalytic activity/Vol] 76 U/L High 7 - 38 U/L [facility] AST [Catalytic activity/Vol] 57 U/L High 13 - 35 U/L [facility] Bilirubin [Mass/Vol] 0.3 mg/dL 0.2 - 1 .3 mg/dL [facility] Bilirubin.conjugated [Mass/Vol] mg/dL <0.2 mg/dL [facility] Protein [Mass/Vol] 7.5 g/dL 6.3 - 8.0 g/dL [facility] No Panel Informationon 02-[address] [facility] URINE OB DIP B/Oon 2 Glucose Ql (U) Negative Neg mg/dL [facility] Protein.monoclonal (U) [Mass/Vol] Negative Neg mg/dL [facility] Absolute lymphocyte counton 12-23-2021 Lymphocytes Auto (Unsp spec) [#/Vol] 3.54 10*3/uL 0.83-4.51 [facility] Work Phone: Basophil percentageon 2021 Basophils/100 WBC (Bld) 0.3 % 0-1 [facility] Work Phone: Eosinophils/100 WBC (Bld) 1.0 % 0-5 [facility] Work Phone: Neutrophils (Bld) [#/Vol] 4.4 10*3/uL 2.0-7.7 [facility] Work Phone: Neutrophils/100 WBC (Bld) 51.7 % 47-70 [facility] Work Phone: WBC (Bld) [#/Vol] 8.6 10*3/uL 4.4-11.0 [place] [facility] Work Phone: [facility] 0-5 [facility] Work Phone: Bilirubin Test strip Ql (U)o n 12-23-2021 Bilirubin Ql (U) Negative Negative [facility] Work Phone: Blood erythrocytes count (nu mber/volume)on 12-23-2021 RBC (Bld) [#/Vol] 4.88 10*6/uL 4.2-5.4 [facility] Work Phone: Blood hemoglobin measurement (mass/volume)on 12-23-2021 Hemoglobin (Bld) [Mass/Vol] 14.2 g/dL 12.0-15.0 [facility] Work Phone: Blood lymphocytes/100 leukoc yteson 12-23-2021 Lymphocytes/100 WBC (Bld) 41.3 % 19-41 [facility] Work Phone: Blood monocytes/100 leukocyt eson 12-23-2021 Monocytes/100 WBC (Bld) 5.6 % 0-10 [facility] Work Phone: Blood platelet mean volumeon 12-23-2021 Platelet mean volume (Bld) [Entitic vol] 9.9 fL 6.2-12.0 [facility] Work Phone: Determination of erythrocyte mean corpuscular volume (MCV)on 12-23-2021 MCV (RBC) [Entitic vol] 90.2 fL 81-99 [facility] Work Phone: Hematocrit Auto (Bld) [Volum e fraction]on 12-23-2021 Hematocrit (Bld) [Volume fraction] 44.0 % 37-47 [facility] Work Phone: Ketones Test strip Ql (U)on 12-23-2021 Ketones Ql (U) Negative Negative [facility] Work Phone: Laboratory - Hematology and Cell countson 12-23-2021 Erythrocyte distribution width (RBC) [Entitic vol] 46.5 fL 35.1-43.9 [facility] Work Phone: [phone] Erythrocyte distribution width (RBC) [Ratio] 14.0 % 11.6-14.6 [facility] Work Phone: [phone] Immature granulocytes/100 WBC (Bld) 0.100 % 0.0-0.9 [facility] Work Phone: [phone] Comment on above: IG% - Immature Granu locytes (promyelocytes, myelocytes and metamyelocytes) > 1% indicates that a LEFT SHIFT is Present. MCH (RBC) [Entitic mass] 29.1 pg 27.0-32.0 [facility] Work Phone: [phone] Nucleated RBC/100 WBC (Bld) [Ratio] 0 % 0-5 [facility] Work Phone: [phone] MCHC Auto (RBC) [Mass/Vol]on 12-23-2021 MCHC (RBC) [Mass/Vol] 32.3 g/dL 32-36 [facility] Work Phone: Mucus LM Ql (Urine sed)on Mucus Ql (Urine sed) 0 SEEN /hpf [facility] Work Phone: [phone] Nitrite Test strip Ql (U)on 12-23-2021 Nitrite Ql (U) Negative Negative [facility] Work Phone: [phone] Platelets bldon 12-23-2021 Platelets (Bld) [#/Vol] 331 10*3/uL 150-450 [facility] Work Phone: [phone] Protein Test strip Ql (U)on 12-23-2021 Protein Ql (U) Negative Negative [facility] Work Phone: [phone] Serum or plasma choriogonado tropin detectionon 12-23-2021 HCG ( test) Ql 966 mIU/mL <4 [facility] Work Phone: [phone] Comment on above: hCG levels with Gest ational AgeGestational Age hCG mIU/mL (IU/L)0.2 - 1 week 5 - 501-2 weeks 50 - 5002-3 weeks 100 - 02806-0 weeks 500 - 828606-1 weeks 1000 - 264805-6 weeks 32850 - 100,0006-8 weeks 43922 - 200,0002-3 months 19361 - 100,000 Squamous epithelial cells de tection in urine sediment by light microscopyon 12-23-2021 Epithelial cells.squamous LM Ql (Urine sed) 0-5 SEEN /hpf [facility] Work Phone: Urine blood detectionon 12-05 RBC Ql (U) 50 /ul Negative [facility] Work Phone: RBC Ql (U) 0 SEEN /hpf [facility] Work Phone: Urine clarityon 12-23-2021 Clarity (U) Clear Clear [facility] Work Phone: Urine color determinationon 12-23-2021 Color (U) Yellow Yellow [facility] Work Phone: Urine glucose detectionon Glucose Ql (U) Normal mg/dl Normal [facility] Work Phone: Urine leukocyte esterase det ection by dipstickon 12-23-2021 Leukocyte esterase Test strip Ql (U) 25 /ul Negative [facility] Work Phone: Urine pHon 12-23-2021 pH (U) 6.0 [pH] [facility] Work Phone: Urine sediment bacteria coun t by microscopy (number/high power field)on 12-23-2021 Bacteria LM.HPF (Urine sed) [#/Area] 0 /[HPF] None Seen [facility] Work Phone: Urine specific gravity measu rementon 12-23-2021 Specific gravity (U) [Rel density] 1.015 [facility] Work Phone: Urobilinogen Auto test strip Ql (U)on 12-23-2021 Urobilinogen Ql (U) Normal mg/dl Normal [facility] Work Phone: CBLon 07-18-2017 CBL . MICRO - MicrobiologyPROCEDURE: Blood Culture (bacterial) [*1]SOURCE: Blood BODY SITE:COLLECTED DATE/TIME: 07/12/2017 23:36 EST RECEIVED DATE/TIME: 07/13/2017 15:41 ESTSTART DATE/TIME: 07/13/2017 15:41 EST FREE TEXT SOURCE:FINAL REPORTSFinal Report []Verified Date/Time/Personnel: 07/18/2017 15:59 ESTBlood Culture: No Growth at 5 days.PRELIMINARY REPORTSPreliminary Report []Verified Date/Time/Personnel: 07/13/2017 16:59 ESTCulture has been received in lab and is no growth to date. Routine cultures are held for 5 days.Performing Locations*1: This test was performed at: [address], [address] [place] [address] ([place]) Comment on above: Performed By: #### C BL ####[place] [address] Hemogramon 07-16-2017 Erythrocyte distribution width Auto Ratio (RBC) 13.4 % Normal 11.5-14.5 [facility] Comment on above: Performed By: #### E SR, CRP2, QWAL, CRTN3 ####[address] [address] Erythrocytes (RBC) 4.43 10*6/uL Normal 3.80-5.20 [facility] Comment on above: Performed By: #### E SR, CRP2, QWAL, CRTN3 ####[address] [address] Hematocrit (HCT) 40.1 % Normal 35.0-47.0 [facility] Comment on above: Performed By: #### E SR, CRP2, QWAL, CRTN3 ####[address] [address] Hemoglobin mass conc (Bld) 13.3 g/dL Normal 11.7-16.0 [facility] Comment on above: Performed By: #### E SR, CRP2, QWAL, CRTN3 ####[address] [address] MCH 30.0 pg Normal 26.0-34.0 [facility] Comment on above: Performed By: #### E , CRP2, QDAISY, CRTN3 ####[address] [address] MCHC mass conc (RBC) 33.1 % Normal 32.0-36.0 [facility] Comment on above: Performed By: #### E SR, CRP2, QWAL, CRTN3 ####[address] [address] MCV 90.5 fL Normal 79.0-98.0 [facility] Comment on above: Performed By: #### E , CRP2, QDAISY, CRTN3 ####[address] [address] Platelet mean volume (PMV) 8.6 fL Normal 7.4-10.4 [facility] Comment on above: Performed By: #### E , CRP2, QWAL, CRTN3 ####[address] [address] Platelets 323 10*3/uL Normal 140-440 [facility] Comment on above: Performed By: #### E , CRP2, RAINA, CRTN3 ####[address] [address] WBC (Leukocytes) 8.6 10*3/uL Normal 3.6-10.7 [facility] Comment on above: Performed By: #### E SR, CRP2, QWAL, CRTN3 ####[address] [address] Hemogramon 07-15-2017 Erythrocyte distribution width Auto Ratio (RBC) 14.1 % Normal 11.5-14.5 [facility] Comment on above: Performed By: #### E SR, CRP2, QWAL, CRTN3 ####[address] [address] Erythrocytes (RBC) 4.46 10*6/uL Normal 3.80-5.20 [facility] Comment on above: Performed By: #### E SR, CRP2, QWAL, CRTN3 ####[address] [address] Hematocrit (HCT) 41.3 % Normal 35.0-47.0 [facility] Comment on above: Performed By: #### E SR, CRP2, QWAL, CRTN3 ####[address] [address] Hemoglobin mass conc (Bld) 13.4 g/dL Normal 11.7-16.0 [facility] Comment on above: Performed By: #### E SR, CRP2, QWAL, CRTN3 ####[address] [address] MCH 30.0 pg Normal 26.0-34.0 [facility] Comment on above: Performed By: #### E SR, CRP2, QWAL, CRTN3 ####[address] [address] MCHC mass conc (RBC) 32.4 % Normal 32.0-36.0 [facility] Comment on above: Performed By: #### E SR, CRP2, QWAL, CRTN3 ####[address] [address] MCV 92.5 fL Normal 79.0-98.0 [facility] Comment on above: Performed By: #### E SR, CRP2, QWAL, CRTN3 ####[address] [address] Platelet mean volume (PMV) 8.6 fL Normal 7.4-10.4 [facility] Comment on above: Performed By: #### E SR, CRP2, QWAL, CRTN3 ####[address] [address] Platelets 324 10*3/uL Normal 140-440 [facility] Comment on above: Performed By: #### E SR, CRP2, QWAL, CRTN3 ####[address] [address] WBC (Leukocytes) 8.8 10*3/uL Normal 3.6-10.7 [facility] Comment on above: Performed By: #### E SR, CRP2, QDAISY, CRTN3 ####[place] [address] [place] [address] Vancomycin Troughon 07-15-20 17 Vancomycin Trough 14.2 ug/mL Low 15.0-20.0 [facility] Comment on above: Result Comment: . Performed By: #### E SR, CRP2, QDAISY, CRTN3 ####[place] [address] [place] [address] Basic Metabolic Panelon 11-0 Anion gap 9 mmol/L Normal [facility] Comment on above: Performed By: #### P T ####[place] [address] [place] [address] Creatinine 0.52 mg/dL Low 0.55-1.40 [facility] Comment on above: Performed By: #### P T ####[place] [address] [place] [address] eGFR (black) mL/min/{1.73_m2} Normal >60 [facility] Comment on above: Performed By: #### P T ####[place] [address] [place] [address] eGFR (non-black) mL/min/{1.73_m2} Normal >60 [facility] Comment on above: Result Comment: Sour ce- MDRD equation with creatinine calibration to IDMS(NKDEP)eGFR not recommended for drug dose adjustment Performed By: #### P T ####[place] [address] [place] [address] Calcium 7.7 mg/dL Low 8.2-10.1 [facility] Comment on above: Performed By: #### P T ####[place] [address] [place] [address] Glucose mass conc 92 mg/dL Normal 70-100 [facility] Comment on above: Performed By: #### P T ####[place] [address] [place] [address] Urea nitrogen 5 mg/dL Low 7-25 [facility] Comment on above: Performed By: #### P T ####[facility] [place] [address] CO2 23 mmol/L Normal 21-32 [facility] Comment on above: Performed By: #### P T ####[address] [place] [address] Chloride 105 mmol/L Normal 98-109 [facility] Comment on above: Performed By: #### P T ####[address] [place] [address] Potassium molar conc 3.9 mmol/L Normal 3.5-5.1 [facility] Comment on above: Performed By: #### P T ####[address] [address] Sodium 137 mmol/L Normal 135-145 [facility] Comment on above: Performed By: #### P T ####[address] [address] Free T4on 07-14-2017 Thyroxine (T4) free 1.10 ng/dL Normal 0.76-1.46 [facility] Comment on above: Performed By: #### E SR, CRP2, QWAL, CRTN3 ####[address] [address] HIV 1,2 Ab; p24 Agon 017 HIV 1,2 Ab; p24 Ag NONREACTIVE Normal Nonreactive [facility] Comment on above: Result Comment: Resu lts obtained using the FDA cleared 4th generation HIVtest. This test detects antibodies to HIV1, HIV2, HIV Group O,and the presence of the HIV-1 p24 antigen. A Non-Reactive re-sult indicates the patient is negative for both HIV antibodyand HIV p24 antigen. All reactive results will undergo reflexconfirmation testing at an additional charge. Performed By: #### E SR, CRP2, QWAL, CRTN3 ####[place] [address] [address] Hemoglobin A1Con 07-14-2017 Glucose mass conc 117 mg/dL Normal [facility] Comment on above: Performed By: #### E SR, CRP2, QWAL, CRTN3 ####[place] [address] Hemoglobin A1c/Hemoglobin.total mass fraction (Bld) 5.7 % High 4.0-5.6 [facility] Comment on above: Result Comment: --Hg bA1C levels may not be accurate in patients who haverenal disease, received recent blood transfusions, are anemic,or who have dyshemoglobinemia. Performed By: #### E SR, CRP2, QWAL, CRTN3 ####[place] [address] Hemogramon 07-14-2017 Erythrocyte distribution width Auto Ratio (RBC) 14.1 % Normal 11.5-14.5 [facility] Comment on above: Performed By: #### P T ####[place] [address] Erythrocytes (RBC) 3.97 10*6/uL Normal 3.80-5.20 [facility] Comment on above: Performed By: #### P T ####[place] [address] Hematocrit (HCT) 36.4 % Normal 35.0-47.0 [facility] Comment on above: Performed By: #### P T ####[place] [address] Hemoglobin mass conc (Bld) 12.1 g/dL Normal 11.7-16.0 [facility] Comment on above: Performed By: #### P T ####[place] [address] MCH 30.6 pg Normal 26.0-34.0 [facility] Comment on above: Performed By: #### P T ####[place] [address] MCHC mass conc (RBC) 33.4 % Normal 32.0-36.0 [facility] Comment on above: Performed By: #### P T ####[place] [address] MCV 91.7 fL Normal 79.0-98.0 [facility] Comment on above: Performed By: #### P T ####[place] [address] [address] Platelet mean volume (PMV) 9.4 fL Normal 7.4-10.4 [facility] Comment on above: Performed By: #### P T ####[place] [address] [address] Platelets 253 10*3/uL Normal 140-440 [facility] Comment on above: Performed By: #### P T ####[address] [address] WBC (Leukocytes) 11.9 10*3/uL High 3.6-10.7 [facility] Comment on above: Performed By: #### P T ####[address] [address] Hep B Surface Abon 7 Hep B Surface Ab 56.6 m[IU]/mL Normal [facility] Comment on above: Result Comment: Inte rpretation:<8.00 Non-Reactive8.00-11.99 Equivocal>= 12.00 Ab Detected Performed By: #### Mandi STRICKLAND, CRP2, QWAL, CRTN3 ####[place] [id number] Hep B Surface Agon 7 Hep B Surface Ag NOT DETECTED Normal Not-Detected [facility] Comment on above: Performed By: #### Mandi STRICKLAND, CRP2, QWAL, CRTN3 ####[place] [address] [address] Hep C Antibodyon 07-14-2017 Hep C Antibody DETECTED Abnormal Not-Detected [facility] Comment on above: Result Comment: Ivone ents with DETECTED Hepatitis C Ab results should have a new specimensubmitted for supplemental testing with a Hepatitis C Quantitative RNA assay(viral load), if clinically indicated. Performed By: #### Mandi STRICKLAND, CRP2, QWAL, CRTN3 ####[place] [address] [address] Hepatic Functionon 7 Alkaline phosphatase (ALP) 74 U/L Normal 45-117 [facility] Comment on above: Performed By: #### P T ####[place] [address] [place] [address] Protein 6.1 g/dL Low 6.4-8.2 [facility] Comment on above: Performed By: #### P T ####[place] [address] [place] [address] Alanine aminotransferase (ALT) 96 U/L High 12-78 [facility] Comment on above: Performed By: #### P T ####[place] [place] [address] Bilirubin (total) 0.2 mg/dL Normal 0.2-1.0 [facility] Comment on above: Performed By: #### P T ####[address] [place] [address] Aspartate aminotransferase (AST) 42 U/L High 15-37 [facility] Comment on above: Performed By: #### P T ####[address] [place] [address] Albumin 2.4 g/dL Low 3.4-5.0 [facility] Comment on above: Performed By: #### P T ####[place] [address] [place] [address] Bilirubin (direct) mg/dL Normal 0.0-0.2 [facility] Comment on above: Performed By: #### P T ####[place] [address] [place] [address] Thyroid Stim. Hormoneon 11-0 Thyroid Stim. Hormone 0.274 uU/mL Low 0.358-3.740 [facility] Comment on above: Performed By: #### P T ####[place] [address] [place] [address] .Auto Diffon 07-13-2017 Basophils Auto #/vol (Bld) 0.10 10 3/mcL Normal 0.00-0.19 [facility] ([place] Comment on above: Performed By: #### C BC, ADIFF, ANEU, GFR, BMP ####[address] [place], [place] [address] Basophils/100 WBC Auto (Bld) 0.5 % Normal 0.0-2.5 [facility] ([place]) Comment on above: Performed By: #### C BC, ADIFF, ANEU, GFR, BMP ####[address] [place], [place] [address] Eosinophils 0.10 10 3/mcL Normal 0.00-0.40 [facility] ([place] Comment on above: Performed By: #### C BC, ADIFF, ANEU, GFR, BMP ####[address] [place], [place] [address] Eosinophils/100 leukocytes 0.8 % Normal 0.0-7.0 [facility] [place] Comment on above: Performed By: #### C BC, ADIFF, ANEU, GFR, BMP ####[address] [place], [place] [address] Lymphocytes 2.60 10 3/mcL Normal 0.77-3.85 [facility] ([place] Comment on above: Performed By: #### C BC, ADIFF, ANEU, GFR, BMP ####[address] [place], [place] [address] Lymphocytes/100 leukocytes 21.3 % Normal 10.0-50.0 [facility] ([place] Comment on above: Performed By: #### C BC, ADIFF, ANEU, GFR, BMP ####[address] [place], [place] [address] Monocytes 1.20 10 3/mcL High 0.15-1.00 [facility] ([place] Comment on above: Performed By: #### C BC, ADIFF, ANEU, GFR, BMP ####[address] [place], [place] [address] Monocytes/100 leukocytes 9.7 % Normal 1.7-13.0 [facility] ([place] Comment on above: Performed By: #### C BC, ADIFF, ANEU, GFR, BMP ####[address] [place], [place] [address] Neutrophils/100 WBC Auto (Bld) 67.7 % Normal 37.0-80.0 [facility] ([place] Comment on above: Performed By: #### C BC, ADIFF, ANEU, GFR, BMP ####[address] [place], [place] [address] .GFRon 07-13-2017 eGFR (non-black) mL/min/{1.73_m2} Normal [facility] ([place]) Comment on above: Result Comment: GFR Population mean for , Non- Americans Ages 20-29 = 116 mL/min/1.73 sq.m. Ages 30-39 = 107 mL/min/1.73 sq.m. Ages 40-49 = 99 mL/min/1.73 sq.m. Ages 50-59 = 93 mL/min/1.73 sq.m. Ages 60-69 = 85 mL/min/1.73 sq.m. Ages 70+ = 75 mL/min/1.73 sq.m.Chronic Kidney Disease: Less than 60 mL/min/1.73 square metersEnd Stage Renal Disease: Less than 15 mL/min/1.73 square meters Performed By: #### C BC, ADIFF, ANEU, GFR, BMP ####[address] [place], [place] [address] eGFR (non-black) 144 ml/min/1.73sqm Normal [facility] ([place] Comment on above: Result Comment: GFR Population mean for , Non- Americans Ages 20-29 = 116 mL/min/1.73 sq.m. Ages 30-39 = 107 mL/min/1.73 sq.m. Ages 40-49 = 99 mL/min/1.73 sq.m. Ages 50-59 = 93 mL/min/1.73 sq.m. Ages 60-69 = 85 mL/min/1.73 sq.m. Ages 70+ = 75 mL/min/1.73 sq.m.Chronic Kidney Disease: Less than 60 mL/min/1.73 square metersEnd Stage Renal Disease: Less than 15 mL/min/1.73 square meters Performed By: #### C BC, ADIFF, ANEU, GFR, BMP ####[address] [place], [place] [address] .NEUABSon 07-13-2017 Neutrophils 8.40 10 3/mcL High 2.85-6.16 [facility] ([place] Comment on above: Performed By: ###TAJ GIRON ANEU, GFR, BMP ####[address] [place], [place] [address] Antibody Identificationon Antibody Identification PATIENT: DEE ALEGRIA LOC: 1EDI,1ECB,28BILL# : [id number] : 1995 SEX: F AGE: 22ORDERED BY: CANDACE CHI ORDERED : 07/13/2017 04:30 COLLECTED: 07/13/2017 02:28ORDER : [id number] RECEIVED : 07/13/2017 03:47 TEST NAME RESULT UNITS RANGES ABN FL STAntibody Identification POS, ANTI E F ------ Normal [facility] Comment on above: Performed By: #### T SGL, ABID, E-A, LC-A ####[address] [address] BMPon 07-13-2017 Chloride 99 mmol/L Normal 98-107 [facility] ([place] Comment on above: Performed By: ###TAJ GIRON ANEU, GFR, BMP ###[address] [place], [place] [address] Electrolyte Balance 7.0 mEq/L Normal [facility] ([place]) Comment on above: Performed By: ###TAJ GIRON ANEU, GFR, BMP ####[address] [place], [place] [address] Glucose mass conc 108 mg/dL High 70-105 [facility] ([place] Comment on above: Performed By: #### C BC, ADIFF, ANEU, GFR, BMP ####[address] [place], [place] [address] Potassium molar conc 3.5 mmol/L Normal 3.5-5.1 [facility] ([place]) Comment on above: Performed By: #### C BC, ADIFF, ANEU, GFR, BMP ####[address] [place], [place] [address] Sodium 134 mmol/L Low 136-146 [facility] ([place] Comment on above: Performed By: #### C BC, ADIFF, ANEU, GFR, BMP ####[address] [place], [place] [address] BUN/Creatinine Ratio 9 ratio Normal 7-27 [facility] ([place] Comment on above: Performed By: #### C BC, ADIFF, ANEU, GFR, BMP ####[address] [place], [place] [address] Calcium 9.3 mg/dL Normal 8.4-10.2 [facility] ([place] Comment on above: Performed By: #### C BC, ADIFF, ANEU, GFR, BMP ####[address] [place], [place] [address] CO2 28 mmol/L Normal 22-29 [facility] ([place] Comment on above: Performed By: #### C BC, ADIFF, ANEU, GFR, BMP ####[address] [place], [place] [address] Creatinine 0.6 mg/dL Normal 0.6-1.2 [facility] ([place] Comment on above: Performed By: #### C BC, ADIFF, ANEU, GFR, BMP ####[address] [place], [place] [address] Urea nitrogen 5.4 mg/dL Low 7.0-18.0 [facility] ([place] Comment on above: Performed By: #### C BC, ADIFF, ANEU, GFR, BMP ####[address] [place], [place] [address] C-Reactive Proteinon 017 C reactive protein (CRP) 40.0 mg/L High 0.0-2.9 [facility] Comment on above: Result Comment: . Performed By: #### E SR, CRP2, QWAL, CRTN3 ####[place] [address] [place] [address] CBCon 07-13-2017 Erythrocyte distribution width Auto Ratio (RBC) 13.4 % Normal 11.5-14.5 [facility] ([place] Comment on above: Performed By: #### C BC, ADIFF, ANEU, GFR, BMP ####[address] [place], [place] [address] Erythrocytes (RBC) 4.41 10 6/mcL Normal 4.20-5.40 [facility] ([place]) Comment on above: Performed By: #### C BC, ADIFF, ANEU, GFR, BMP ####[address] [place], [place] [address] Hematocrit (HCT) 39.2 % Normal 37.0-47.0 [facility] ([place] Comment on above: Performed By: #### Farhana BC, ADIFF, ANEU, GFR, BMP ####[address] [place], [place] [address] Hemoglobin mass conc (Bld) 13.1 G/dL Normal 12.0-16.0 [facility] ([place] Comment on above: Performed By: #### C BC, ADIFF, ANEU, GFR, BMP ####[address] [place], [place] [address] MCH 29.6 pg Normal 27.0-31.2 [facility] ([place] Comment on above: Performed By: #### C BC, ADIFF, ANEU, GFR, BMP ####[address] [place], [place] [address] MCHC mass conc (RBC) 33.3 G/dL Normal 33.0-37.0 [facility] ([place]) Comment on above: Performed By: #### C BC, ADIFF, ANEU, GFR, BMP ####[address] [place], [place] [address] MCV 88.9 fL Normal 80.0-94.0 [facility] ([place] Comment on above: Performed By: #### C BC, ADIFF, ANEU, GFR, BMP ####[address] [place], [place] [address] Platelet mean volume (PMV) 8.5 fL Normal 7.4-10.4 [facility] ([place] Comment on above: Performed By: #### C BC, ADIFF, ANEU, GFR, BMP ####[address] [place], [place] [address] Platelets 235 10 3/mcL Normal 130-400 [facility] ([place] Comment on above: Performed By: #### C BC, ADIFF, ANEU, GFR, BMP ####[address] [place], [place] [address] WBC (Leukocytes) 12.40 10 3/mcL High 4.60-10.80 [facility] ([place]) Comment on above: Performed By: #### C BC, ADIFF, ANEU, GFR, BMP ####[address] [place], [place] [address] CR Hand Complete 3+ Views Danielle medrano 07-13-2017 CR Hand Complete 3+ Views Right Patient Name: CALIN GRAF Diagnostic Radiology Exam Date/Time 07/13/2017 02:45:57 EST Exam CR Hand Complete 3+ Views Right Ordering Physician ALON MARIA Accession Number [id number] CPT4 Codes 46587 () Reason For Exam middle finger flexor tenosynovitis Report Indication: Hand swelling. IMPRESSION: Right hand three views performed. Bone density normal. No fracture or dislocation. No foreign body. There is swelling of the fingers especially third digit. Consider inflammatory conditions of soft tissue. Report Dictated on Workstation: [id number] Final Dictated: 07/13/2017 3:12 am Dictating Physician: MD SHAW JOHN Signed Date and Time: 07/13/2017 3:12 am Signed by: MD SHAW JOHN Transcribed Date and Time: 07/13/2017 3:12 Normal [facility] CULT./ST. BACTERIAon 017 CULT./ST. BACTERIA OR collectedOR june [facility] Patient name: CALIN GRAFR.N.: [id number] : 1995 Age: 22 Sex: F Ord. Physician: DMITRIY DIXON Location: [address] [place] [address] Copy to: DMITRIY DIXON Adm. Date: 07/13/17 MICROBIOLOGYORDER#: [id number] COLLECTED: 07/13/17 06:36SOURCE: Wound right middle finger RECEIVED: 07/13/17 11:15 OE C O M M E N T S OR collectedSTAIN GRAM FINAL 07/13/17 20:0211Many polymorphonuclear cells/lpf.Rare gram positive cocci in clusters.CULT./ST. BACTERIA FINAL 07/16/17 08:04Few Staphylococcus aureus Methicillin-resistant Staphylococcus aureus(MRSA) S. aureus ANTIBIOTICS RADHA INTRP Clindamycin 0.25 S Daptomycin 0.5 S Doxycycline <=0.5 S Gentamicin <=0.5 S Inducible Clindamycin Re Neg Neg Linezolid 2 S Nafcillin/Oxacillin >=4 R Rifampin <=0.5 S Tigecycline <=0.12 S Trimeth/Sulfa <=10 S Vancomycin <=0.5 S S=SENSITIVE I=INTERMEDIATE R=RESISTANT S-DD=SUSCEPTIBLE DOSE DEPENDENT RADHA VALUES = ug/mL [facility] Comment on above: Performed By: #### P T ####[address] [address] CULTURE ANAEROBEon 7 CULTURE ANAEROBE OR collectedOR [facility] Patient name: DEECALINRAnselmoN.: [id number] : 1995 Age: 22 Sex: F Ord. Physician: DMITRIY DIXON Location: [address] [place] [address] Copy to: DMITRIY DIXON DISCHARGED: 07/16/17 Adm. Date: 07/13/17 MICROBIOLOGYORDER#: [id number] COLLECTED: 07/13/17 06:36SOURCE: Wound right middle finger RECEIVED: 07/13/17 11:15 JORGE Escobar S OR collectedCULTURE ANAEROBE FINAL 07/18/17 15:30109/17/16No growth of anaerobes at 5 days. [facility] Comment on above: Performed By: #### P T ####[address] [address] [place] [address] Creatinineon 07-13-2017 Creatinine 0.68 mg/dL Normal 0.55-1.40 [facility] Comment on above: Performed By: #### E SR, CRP2, QWAL, CRTN3 ####[address] [address] [place] [address] eGFR (black) mL/min/{1.73_m2} Normal >60 [facility] Comment on above: Performed By: #### E SR, CRP2, QWAL, CRTN3 ####[address] [address] [place] [address] eGFR (non-black) mL/min/{1.73_m2} Normal >60 [facility] Comment on above: Result Comment: Sour ce- MDRD equation with creatinine calibration to IDMS(NKDEP)eGFR not recommended for drug dose adjustment Performed By: #### E SR, CRP2, QDAISY, CRTN3 ####[address] [address] [place] [address] Drugs of Abuseon 07-13-2017 Amphetamines, Ur Positive Normal [facility] Comment on above: Performed By: #### P T ####[address] [place] [address] Cocaine, Ur Negative Normal [facility] Comment on above: Performed By: #### P T ####[address] [address] [place] [address] Methadone, Ur Negative Normal [facility] Comment on above: Performed By: #### P T ####[address] [address] [place] [address] Opiates, Ur Positive Normal [facility] Comment on above: Performed By: #### P T ####[address] [place] [address] Oxycodone/Oxymorphine ,Ur Negative Normal [facility] Comment on above: Performed By: #### P T ####[address] [address] [place] [address] Barbiturates, Ur Negative Normal [facility] Comment on above: Performed By: #### P T ####[place] [address] Benzodiazepines, Ur Negative [facility] Comment on above: Performed By: #### P T ####[place] [address] Phencyclidine (PCP), Ur Negative [facility] Comment on above: Result Comment: The expected value for all of the drugs listedabove is Negative.The following drugs or drug groups have been screenedfor by Immunoassay at the following thresholds:Amphetamine class (1000 ng/mL), Barbiturates (200 ng/mL),Benzodiazepines (200 ng/mL), Cocaine (300 ng/mL),Methadone (300 ng/mL), Opiates (300 ng/mL),Oxycodone (100 ng/mL), and PCP (25 ng/mL).NOTE: These results are for medical treatment only.Analysis performed using non-forensic procedures. Performed By: #### P T ####[place] [address] E Antigenon 07-13-2017 E Antigen PATIENT: DEE OTERO LOC: 1EDI,1ECB,28[facility]# : [id number] : 1995 SEX: F AGE: 22ORDERED BY: CANDACE CHI ORDERED : 07/13/2017 05:34 COLLECTED: 07/13/2017 02:28ORDER : [id number] RECEIVED : 07/13/2017 03:47 TEST NAME RESULT UNITS RANGES ABN FL CHINYERE Antigen NEG F ------ Normal [facility] Comment on above: Performed By: #### P T ####[place] [address] Performed By: #### T SILVIO AU, E-A, LC-A ####[address] [address] Little c Antigenon 7 [place] Antigen PATIENT: DEE OTERO LOC: 1EDI,1ECB,28BILL# : [id number] : 1995 SEX: F AGE: 22ORDERED BY: CANDACE CHI ORDERED : 07/13/2017 05:34 COLLECTED: 07/13/2017 02:28ORDER : [id number] RECEIVED : 07/13/2017 03:47 TEST NAME RESULT UNITS RANGES ABN FL STLittle c Antigen NEG F ------ Normal [facility] Comment on above: Performed By: #### T ROE, SILVIO, E-A, LC-A ####[place] [address] Performed By: #### P T ####[address] Emergency Room Note on 07-13-2017 [place] [place] [facility] Note Normal [facility] ([place]) Prothrombin Timeon 7 INR Coag RelTime (PPP) 1.0 {INR} Normal 0.9-1.1 [facility] Comment on above: Result Comment: Myron mmended Anticoagulant Therapy:SEE BELOW----- INR of 2.0 - 3.0 :- Prophylaxis of Venous Thrombosis (high-risk surgery)- Treatment of Venous Thrombosis- Treatment of Pulmonary Embolism (Includes tissue heartvalves, Acute Myocardial Infarction to prevent systemicembolism, Valvular Heart Disease, and Atrial Fibrillation)----- INR of 2.5 - 3.5 :- Mechanical Prosthetic Valves (high risk)- If oral anticoagulant therapy is used to preventMyocardial Infarction Performed By: #### P T ####[place] [address] Prothrombin time (PT) Coag time (PPP) 10.9 s Normal 9.0-12.0 [facility] Comment on above: Result Comment: . Performed By: #### P T ####[place] [address] Sed Rateon 07-13-2017 Sed Rate 15 mm/h Normal 0-20 [facility] Comment on above: Performed By: #### E SR, CRP2, QWAL, CRTN3 ####[place] [address] Serum Drug Screenon 07-13-20 17 Specimen Type Whole Blood Normal [facility] Comment on above: Performed By: #### P T ####[place] [address] Volatiles None Detected Normal [facility] Comment on above: Performed By: #### P T ####[place] [address] Acetaminophen mass conc NONE DETECTED Normal 10.0-20.0 [facility] Comment on above: Performed By: #### P T ####[place] [address] Salicylates NONE DETECTED Normal 0.0-25.[address] [facility] Comment on above: Result Comment: NORM AL RANGEAnalgesic 1-09Oddz-dinlgubktmlc 10-25 Performed By: #### P T ####[place] [address] Tri. Antidepressant Screen Negative Normal [facility] Comment on above: Result Comment: Tric yclic antidepressants have been screened for byimmunoassay at 300 ng/mL threshold. Performed By: #### P T ####[place] [id number] TS GELon 07-13-2017 TS GEL PATIENT: DEE OTERO LOC: 1EDI,1ECB,28BILL# : [id number] : 1995 SEX: F AGE: 22ORDERED BY: CANDACE CHI ORDERED : 07/13/2017 02:15 COLLECTED: 07/13/2017 02:28ORDER : [id number] RECEIVED : 07/13/2017 03:47 TEST NAME RESULT UNITS RANGES ABN FL STABO Group O FRh, Gel POS FAntibody Screen Gel POS F ------ Normal [facility] Comment on above: Performed By: #### T SGL, ABID, E-A, LC-A ####[place] [address] [place] [id number] XR HAND MINIMUM 3 VIEWS RIGH Ton 07-13-2017 XR HAND MINIMUM 3 VIEWS RIGHT ORIGINALXR HAND MINIMUM 3 VIEWS RIGHT CLINICAL STATEMENT: swelling. The patient reports right hand swelling for two days, worst at third digit. COMPARISON: None FINDINGS: No acute fracture or dislocation is identified. The joint spaces are maintained. Diffuse soft tissue swelling of the third digit is noted. There is no radiopaque foreign body. IMPRESSION: No acute osseous abnormality to account for soft tissue swelling of the third digit. I have personally reviewed the images of this examination and agree with the resident's findings and interpretation. Interpreted By: Salvador Nye MDPreliminary Report By: Lorena Hall DOElectronically Signed By: Salvador Nye MD Dictated Date: 07/12/2017 11:36:00 PM Prelim Date: 07/12/2017 11:41:29 PM Sign Date: 07/12/2017 11:51:04 PM Normal [facility] ([place]) hCG Qual Pregon 07-13-2017 hCG Qual Preg Negative Normal [facility] Comment on above: Result Comment: REF RANGE:Negative .... < 3Questionable Rpt 48-72 HrPositive ..... > 10 Performed By: #### E SR, CRP2, QWAL, CRTN3 ####[address] [address] DDI VIBRATION CONTROLLED TRA NSIENT ELASTOGRAPHY (VCTE) [facility] Vital Signs Date Time Vital Sign Value Performing Clinician Facility 03-13-2025 14:51-0400 Body mass index (BMI) [Ratio] 32.12 kg/m2 Kayla Robb MD Work Phone: [facility] 03-13-2025 14:51-0400 Body weight 87.54 kg Kayla Robb MD Work Phone: [facility] 03-13-2025 14:51-0400 Diastolic blood pressure 68 mm[Hg] Kayla Robb MD Work Phone: [facility] 03-13-2025 14:51-0400 Systolic blood pressure 112 mm[Hg] Kayla Robb MD Work Phone: [facility] 03-07-2025 11:04-0400 Body mass index (BMI) [Ratio] 31.78 kg/m2 Kayla Robb MD Work Phone: [facility] 03-07-2025 11:04-0400 Body weight 86.64 kg Kayla Robb MD Work Phone: [facility] 03-07-2025 11:04-0400 Diastolic blood pressure 76 mm[Hg] Kayla Robb MD Work Phone: [facility] 03-07-2025 11:04-0400 Systolic blood pressure 116 mm[Hg] Kayla Robb MD Work Phone: [facility] 03-01-2025 11:03-0400 Body mass index (BMI) [Ratio] 31.62 kg/m2 Kayla Robb MD Work Phone: [facility] 03-01-2025 11:03-0400 Body weight 86.18 kg Kayla Robb MD Work Phone: [facility] 03-01-2025 11:03-0400 Diastolic blood pressure 78 mm[Hg] Kayla Robb MD Work Phone: [facility] 03-01-2025 11:03-0400 Systolic blood pressure 118 mm[Hg] Kayla Robb MD Work Phone: [facility] 02-14-2025 13:34-0400 Body mass index (BMI) [Ratio] 31.12 kg/m2 Lachelle Kramer MD Work Phone: [facility] 02-14-2025 13:34-0400 Body weight 84.82 kg Lachelle Kramer MD Work Phone: [facility] 02-14-2025 13:34-0400 Diastolic blood pressure 72 mm[Hg] Lachelle Kramer MD Work Phone: [facility] 02-14-2025 13:34-0400 Systolic blood pressure 114 mm[Hg] Lachelle Kramer MD Work Phone: [facility] 01-31-2025 11:42-0400 Body mass index (BMI) [Ratio] 29.79 kg/m2 Kayla Robb MD Work Phone: [facility] 01-31-2025 11:42-0400 Body weight 81.19 kg Kayla oRbb MD Work Phone: [facility] 01-31-2025 11:42-0400 Diastolic blood pressure 62 mm[Hg] Kayla Robb MD Work Phone: [facility] 01-31-2025 11:42-0400 Systolic blood pressure 108 mm[Hg] Kayla Robb MD Work Phone: [facility] 01-17-2025 13:20-0400 Body mass index (BMI) [Ratio] 29.62 kg/m2 Kayla Robb MD Work Phone: [facility] 01-17-2025 13:20-0400 Body weight 80.74 kg Kayla Robb MD Work Phone: [facility] 01-17-2025 13:20-0400 Diastolic blood pressure 68 mm[Hg] Kayla Robb MD Work Phone: [facility] 01-17-2025 13:20-0400 Systolic blood pressure 114 mm[Hg] Kayla Robb MD Work Phone: [facility] 01-03-2025 13:22-0400 Body mass index (BMI) [Ratio] 30.62 kg/m2 Hank Boss MD Work Phone: [facility] 01-03-2025 13:22-0400 Body weight 83.46 kg Hank Boss MD Work Phone: [facility] 01-03-2025 13:22-0400 Diastolic blood pressure 60 mm[Hg] Hank Boss MD Work Phone: [facility] 01-03-2025 13:22-0400 Systolic blood pressure 100 mm[Hg] Hank Boss MD Work Phone: [facility] 12-20-2024 13:33-0400 Body mass index (BMI) [Ratio] 30.09 kg/m2 Kayla Robb MD Work Phone: [facility] 12-20-2024 13:33-0400 Body weight 82.01 kg Kayla Robb MD Work Phone: [facility] 12-20-2024 13:33-0400 Diastolic blood pressure 76 mm[Hg] Kayla Robb MD Work Phone: [facility] 12-20-2024 13:33-0400 Systolic blood pressure 110 mm[Hg] Kayla Robb MD Work Phone: [facility] 12-06-2024 11:37-0400 Body mass index (BMI) [Ratio] 28.62 kg/m2 Kayla Robb MD Work Phone: [facility] 12-06-2024 11:37-0400 Body weight 78.02 kg Kayla Robb MD Work Phone: [facility] 12-06-2024 11:37-0400 Diastolic blood pressure 74 mm[Hg] Kayla Robb MD Work Phone: [facility] 12-06-2024 11:37-0400 Systolic blood pressure 116 mm[Hg] Kayla Robb MD Work Phone: [facility] 11-22-2024 13:50-0400 Body mass index (BMI) [Ratio] 28.54 kg/m2 Lachelle Hicmkan MD Work Phone: [facility] 11-22-2024 13:50-0400 Body weight 77.8 kg Lachelle Hickman MD Work Phone: [facility] 11-22-2024 13:50-0400 Diastolic blood pressure 62 mm[Hg] Lachelle Hickman MD Work Phone: [facility] 11-22-2024 13:50-0400 Heart rate 90 /min Lachelle Hickman MD Work Phone: [facility] 11-22-2024 13:50-0400 SaO2% (BldA) [Mass fraction] 99 % Lachelle Hickman MD Work Phone: [facility] 11-22-2024 13:50-0400 Systolic blood pressure 117 mm[Hg] Lachelle Hickman MD Work Phone: [facility] 11-08-2024 14:31-0500 Body mass index (BMI) [Ratio] 29.29 kg/m2 Kayla Robb MD Work Phone: [facility] 11-08-2024 14:31-0500 Body weight 79.83 kg Kayla Robb MD Work Phone: [facility] 11-08-2024 14:31-0500 Diastolic blood pressure 64 mm[Hg] Kayla Robb MD Work Phone: [facility] 11-08-2024 14:31-0500 Systolic blood pressure 112 mm[Hg] Kayla Robb MD Work Phone: [facility] 10-11-2024 10:23-0500 Body mass index (BMI) [Ratio] 28.46 kg/m2 Lorena Sharma APRN.CNM Work Phone: [facility] 10-11-2024 10:23-0500 Body weight 77.56 kg Lorena Sharma APRN.CNM Work Phone: [facility] 10-11-2024 10:23-0500 Diastolic blood pressure 68 mm[Hg] Lorena Sharma APRN.CNM Work Phone: [facility] 10-11-2024 10:23-0500 Systolic blood pressure 100 mm[Hg] Lorena Sharma APRN.CNM Work Phone: [facility] 10-03-2024 11:16-0500 Body mass index (BMI) [Ratio] 28.84 kg/m2 Francisco Clutter PA-C Work Phone: [facility] 10-03-2024 11:16-0500 Body temperature 97.9 [degF] Francisco Clutter PA-C Work Phone: [facility] 10-03-2024 11:16-0500 Body weight 78.6 kg Francisco Clutter PA-C Work Phone: [facility] 10-03-2024 11:16-0500 Diastolic blood pressure 72 mm[Hg] Francisco Clutter PA-C Work Phone: [facility] 10-03-2024 11:16-0500 Heart rate 98 /min Francisco Clutter PA-C Work Phone: [facility] 10-03-2024 11:16-0500 Respiratory rate 18 /min Francisco Clutter PA-C Work Phone: [facility] 10-03-2024 11:16-0500 SaO2% (BldA) [Mass fraction] 99 % Francisco Clutter PA-C Work Phone: [facility] 10-03-2024 11:16-0500 Systolic blood pressure 110 mm[Hg] Francisco Woodsutter PA-C Work Phone: [facility] 09-13-2024 13:33-0500 Body mass index (BMI) [Ratio] 28.46 kg/m2 Kayla Robb MD Work Phone: [facility] 09-13-2024 13:33-0500 Body weight 77.56 kg Kayla Robb MD Work Phone: [facility] 09-13-2024 13:33-0500 Diastolic blood pressure 76 mm[Hg] Kayla Robb MD Work Phone: [facility] 09-13-2024 13:33-0500 Systolic blood pressure 114 mm[Hg] Kayla Robb MD Work Phone: [facility] 08-02-2024 10:52-0500 Body height 165.1 cm Rylee Scott MD ALLERGY IMMUNOLOGY.ELECTRIC LOCOMOTIVE CRANE OPERATOR Work Phone: [facility] 08-02-2024 10:52-0500 Body mass index (BMI) [Ratio] 28.12 kg/m2 Rylee Scott MD ALLERGY IMMUNOLOGY.ELECTRIC LOCOMOTIVE CRANE OPERATOR Work Phone: [facility] 08-02-2024 10:52-0500 Body weight 76.66 kg Rylee Haury MD ALLERGY IMMUNOLOGY.ELECTRIC LOCOMOTIVE CRANE OPERATOR Work Phone: [facility] 08-02-2024 10:52-0500 Diastolic blood pressure 64 mm[Hg] Rylee Haury MD ALLERGY IMMUNOLOGY.ELECTRIC LOCOMOTIVE CRANE OPERATOR Work Phone: [facility] 08-02-2024 10:52-0500 Systolic blood pressure 110 mm[Hg] Rylee Haury MD ALLERGY IMMUNOLOGY.ELECTRIC LOCOMOTIVE CRANE OPERATOR Work Phone: [facility] 07-05-2024 09:50-0400 Body mass index (BMI) [Ratio] 29.07 kg/m2 Gricelda Moomaw MD ALLERGY IMMUNOLOGY.ELECTRIC LOCOMOTIVE CRANE OPERATOR Work Phone: [facility] 07-05-2024 09:50-0400 Body temperature 97.2 [degF] Gricelda Moomaw MD ALLERGY IMMUNOLOGY.ELECTRIC LOCOMOTIVE CRANE OPERATOR Work Phone: [facility] 07-05-2024 09:50-0400 Body weight 78.2 kg Gricelda Moomaw MD ALLERGY IMMUNOLOGY.ELECTRIC LOCOMOTIVE CRANE OPERATOR Work Phone: [facility] 07-05-2024 09:50-0400 Diastolic blood pressure 80 mm[Hg] Gricelda Moomaw MD ALLERGY IMMUNOLOGY.ELECTRIC LOCOMOTIVE CRANE OPERATOR Work Phone: [facility] 07-05-2024 09:50-0400 Heart rate 77 /min Gricelda Moomaw MD ALLERGY IMMUNOLOGY.ELECTRIC LOCOMOTIVE CRANE OPERATOR Work Phone: [facility] 07-05-2024 09:50-0400 Respiratory rate 18 /min Gricelda Moomaw MD ALLERGY IMMUNOLOGY.ELECTRIC LOCOMOTIVE CRANE OPERATOR Work Phone: [facility] 07-05-2024 09:50-0400 SaO2% (BldA) [Mass fraction] 99 % Gricelda Moomaw MD ALLERGY IMMUNOLOGY.ELECTRIC LOCOMOTIVE CRANE OPERATOR Work Phone: [facility] 07-05-2024 09:50-0400 Systolic blood pressure 119 mm[Hg] Gricelda Moomaw MD ALLERGY IMMUNOLOGY.ELECTRIC LOCOMOTIVE CRANE OPERATOR Work Phone: [facility] 10-14-2023 08:30-0500 Body temperature 97.11 [degF] Lorena Singh MD ALLERGY IMMUNOLOGY.ELECTRIC LOCOMOTIVE CRANE OPERATOR Work Phone: [facility] 10-14-2023 08:30-0500 Body weight 91.17 kg Lorena Singh MD ALLERGY IMMUNOLOGY.ELECTRIC LOCOMOTIVE CRANE OPERATOR Work Phone: [facility] 10-14-2023 08:30-0500 Diastolic blood pressure 75 mm[Hg] Lorena Singh MD ALLERGY IMMUNOLOGY.ELECTRIC LOCOMOTIVE CRANE OPERATOR Work Phone: [facility] 10-14-2023 08:30-0500 Heart rate 100 /min Lorena Singh MD ALLERGY IMMUNOLOGY.ELECTRIC LOCOMOTIVE CRANE OPERATOR Work Phone: [facility] 10-14-2023 08:30-0500 Respiratory rate 20 /min Lorena Singh MD ALLERGY IMMUNOLOGY.ELECTRIC LOCOMOTIVE CRANE OPERATOR Work Phone: [facility] 10-14-2023 08:30-0500 SaO2% (BldA) [Mass fraction] 98 % Lorena Singh MD ALLERGY IMMUNOLOGY.ELECTRIC LOCOMOTIVE CRANE OPERATOR Work Phone: [facility] 10-14-2023 08:30-0500 Systolic blood pressure 106 mm[Hg] Lorena Singh MD ALLERGY IMMUNOLOGY.ELECTRIC LOCOMOTIVE CRANE OPERATOR Work Phone: [facility] 08-04-2023 11:30-0500 Body temperature 97 [degF] Krislyn Aberegg PA Work Phone: [facility] 08-04-2023 11:30-0500 Body weight 94.8 kg Krislyn Aberegg PA Work Phone: [facility] 08-04-2023 11:30-0500 Diastolic blood pressure 62 mm[Hg] Krislyn Aberegg PA Work Phone: [facility] 08-04-2023 11:30-0500 Heart rate 89 /min Krislyn Aberegg PA Work Phone: [facility] 08-04-2023 11:30-0500 Respiratory rate 16 /min Krislyn Aberegg PA Work Phone: [facility] 08-04-2023 11:30-0500 SaO2% (BldA) [Mass fraction] 98 % Krislyn Aberegg PA Work Phone: [facility] 08-04-2023 11:30-0500 Systolic blood pressure 116 mm[Hg] Krislyn Aberegg PA Work Phone: [facility] 09-09-2022 10:09-0500 Body height 162.6 cm Kayla Robb MD Work Phone: [facility] 09-09-2022 10:09-0500 Body weight 77.11 kg Kayla Robb MD Work Phone: [facility] 09-09-2022 10:09-0500 Diastolic blood pressure 64 mm[Hg] Kayla Robb MD Work Phone: [facility] 09-09-2022 10:09-0500 Systolic blood pressure 102 mm[Hg] Kayla Robb MD Work Phone: [facility] 08-12-2022 09:22-0500 Body weight 78.02 kg Kayla Robb MD Work Phone: [facility] 08-12-2022 09:22-0500 Diastolic blood pressure 74 mm[Hg] Kayla Robb MD Work Phone: [facility] 08-12-2022 09:22-0500 Systolic blood pressure 116 mm[Hg] Kayla Robb MD Work Phone: [facility] 08-07-2022 13:39-0500 Body temperature 96 [degF] [facility] Work Phone: 08-07-2022 13:39-0500 Diastolic blood pressure 64 mm[Hg] [facility] Work Phone: 08-07-2022 13:39-0500 Heart rate 91 /min [facility] Work Phone: 08-07-2022 13:39-0500 Respiratory rate 18 /min [facility] Work Phone: 08-07-2022 13:39-0500 Systolic blood pressure 112 mm[Hg] [facility] Work Phone: 08-07-2022 02:17-0500 SaO2% (BldA) [Mass fraction] 94 % [facility] Work Phone: 08-05-2022 07:16-0500 Body height 160.02 cm [facility] Work Phone: 08-05-2022 07:16-0500 Body mass index (BMI) [Ratio] 32.4 kg/m2 [facility] Work Phone: 08-05-2022 07:16-0500 Body weight 83 kg [facility] Work Phone: 07-29-2022 15:47-0500 Body weight 80.74 kg Kayla Robb MD Work Phone: [facility] 07-29-2022 15:47-0500 Diastolic blood pressure 70 mm[Hg] Kayla Robb MD Work Phone: [facility] 07-29-2022 15:47-0500 Systolic blood pressure 120 mm[Hg] Kayla Robb MD Work Phone: [facility] 07-21-2022 09:03-0500 Body weight 82.1 kg Alfredo Benitez MD Work Phone: [facility] 07-21-2022 09:03-0500 Diastolic blood pressure 68 mm[Hg] Alfredo Benitez MD Work Phone: [facility] 07-21-2022 09:03-0500 Systolic blood pressure 104 mm[Hg] Alfredo Benitez MD Work Phone: [facility] 07-14-2022 07:53-0500 Body weight 80.83 kg Ob Ultrasound Work Phone: [facility] 07-14-2022 07:53-0500 Diastolic blood pressure 62 mm[Hg] Ob Ultrasound Work Phone: [facility] 07-14-2022 07:53-0500 Systolic blood pressure 102 mm[Hg] Ob Ultrasound Work Phone: [facility] 07-07-2022 09:52-0400 Body weight 79.38 kg Kayla Robb MD Work Phone: [facility] 07-07-2022 09:52-0400 Diastolic blood pressure 60 mm[Hg] Kayla Robb MD Work Phone: [facility] 07-07-2022 09:52-0400 Systolic blood pressure 102 mm[Hg] Kayla Robb MD Work Phone: [facility] 06-27-2022 16:10-0400 Body temperature 97.9 [degF] No Primary Care Physician [facility] Work Phone: 06-27-2022 16:10-0400 Diastolic blood pressure 59 mm[Hg] No Primary Care Physician [facility] Work Phone: 06-27-2022 16:10-0400 Heart rate 76 /min No Primary Care Physician [facility] Work Phone: 06-27-2022 16:10-0400 Systolic blood pressure 112 mm[Hg] No Primary Care Physician [facility] Work Phone: 06-27-2022 16:00-0400 Body height 160.02 cm No Primary Care Physician [facility] Work Phone: 06-27-2022 16:00-0400 Body mass index (BMI) [Ratio] 30.9 kg/m2 No Primary Care Physician [facility] Work Phone: 06-27-2022 16:00-0400 Body weight 79.1 kg No Primary Care Physician [facility] Work Phone: 06-26-2022 13:43-0400 Body weight 79.65 kg Kayla Robb MD Work Phone: [facility] 06-26-2022 13:43-0400 Diastolic blood pressure 68 mm[Hg] Kayla Robb MD Work Phone: [facility] 06-26-2022 13:43-0400 Systolic blood pressure 106 mm[Hg] Kayla Robb MD Work Phone: [facility] 06-10-2022 15:55-0400 Body weight 80.29 kg Kayla Robb MD Work Phone: [facility] 06-10-2022 15:55-0400 Diastolic blood pressure 58 mm[Hg] Kayla Robb MD Work Phone: [facility] 06-10-2022 15:55-0400 Systolic blood pressure 104 mm[Hg] Kayla Robb MD Work Phone: [facility] 05-25-2022 08:55-0400 Body weight 79.83 kg Kayla Robb MD Work Phone: [facility] 05-25-2022 08:55-0400 Diastolic blood pressure 58 mm[Hg] Kayla Robb MD Work Phone: [facility] 05-25-2022 08:55-0400 Systolic blood pressure 98 mm[Hg] Kayla Robb MD Work Phone: [facility] 05-08-2022 00:33-0400 Heart rate 76 /min No Primary Care Physician [facility] Work Phone: 05-08-2022 00:33-0400 Respiratory rate 16 /min No Primary Care Physician [facility] Work Phone: 05-08-2022 00:33-0400 SaO2% (BldA) [Mass fraction] 97 % No Primary Care Physician [facility] Work Phone: 05-07-2022 23:03-0400 Body height 162.56 cm No Primary Care Physician [facility] Work Phone: 05-07-2022 23:03-0400 Body mass index (BMI) [Ratio] 31.1 kg/m2 No Primary Care Physician [facility] Work Phone: 05-07-2022 23:03-0400 Body temperature 98.4 [degF] No Primary Care Physician [facility] Work Phone: 05-07-2022 23:03-0400 Body weight 82.4 kg No Primary Care Physician [facility] Work Phone: 05-07-2022 23:03-0400 Diastolic blood pressure 80 mm[Hg] No Primary Care Physician [facility] Work Phone: 05-07-2022 23:03-0400 Systolic blood pressure 118 mm[Hg] No Primary Care Physician [facility] Work Phone: 04-24-2022 08:39-0400 Body weight 76.2 kg Kayla Robb MD Work Phone: [facility] 04-24-2022 08:39-0400 Diastolic blood pressure 60 mm[Hg] Kayla Robb MD Work Phone: [facility] 04-24-2022 08:39-0400 Systolic blood pressure 104 mm[Hg] Kayla Robb MD Work Phone: [facility] 03-17-2022 10:13-0400 Body weight 69.4 kg Kayla Robb MD Work Phone: [facility] 03-17-2022 10:13-0400 Diastolic blood pressure 68 mm[Hg] Kayla Robb MD Work Phone: [facility] 03-17-2022 10:13-0400 Systolic blood pressure 110 mm[Hg] Kayla Robb MD Work Phone: [facility] 03-12-2022 12:09-0400 Body temperature 98.4 [degF] No Primary Care Physician [facility] Work Phone: 03-12-2022 12:09-0400 Diastolic blood pressure 64 mm[Hg] No Primary Care Physician [facility] Work Phone: 03-12-2022 12:09-0400 Heart rate 89 /min No Primary Care Physician [facility] Work Phone: 03-12-2022 12:09-0400 Respiratory rate 16 /min No Primary Care Physician [facility] Work Phone: 03-12-2022 12:09-0400 SaO2% (BldA) [Mass fraction] 99 % No Primary Care Physician [facility] Work Phone: 03-12-2022 12:09-0400 Systolic blood pressure 130 mm[Hg] No Primary Care Physician [facility] Work Phone: 02-27-2022 13:36-0400 Body temperature 97.8 [degF] No Primary Care Physician [facility] Work Phone: 02-27-2022 13:36-0400 Diastolic blood pressure 78 mm[Hg] No Primary Care Physician [facility] Work Phone: 02-27-2022 13:36-0400 Heart rate 78 /min No Primary Care Physician [facility] Work Phone: 02-27-2022 13:36-0400 Respiratory rate 14 /min No Primary Care Physician [facility] Work Phone: 02-27-2022 13:36-0400 SaO2% (BldA) [Mass fraction] 99 % No Primary Care Physician [facility] Work Phone: 02-27-2022 13:36-0400 Systolic blood pressure 132 mm[Hg] No Primary Care Physician [facility] Work Phone: 02-27-2022 12:27-0400 Body mass index (BMI) [Ratio] 26.9 kg/m2 No Primary Care Physician [facility] Work Phone: 02-27-2022 12:27-0400 Body weight 68.8 kg No Primary Care Physician [facility] Work Phone: 02-17-2022 11:15-0400 Body weight 66.22 kg Kayla Robb MD Work Phone: [facility] 02-17-2022 11:15-0400 Diastolic blood pressure 58 mm[Hg] Kayla Robb MD Work Phone: [facility] 02-17-2022 11:15-0400 Systolic blood pressure 98 mm[Hg] Kayla Robb MD Work Phone: [facility] 01-26-2022 23:45-0400 Diastolic blood pressure 88 mm[Hg] [facility] Work Phone: 01-26-2022 23:45-0400 Heart rate 80 /min [facility] Work Phone: 01-26-2022 23:45-0400 Respiratory rate 16 /min [facility] Work Phone: 01-26-2022 23:45-0400 SaO2% (BldA) [Mass fraction] 98 % [facility] Work Phone: 01-26-2022 23:45-0400 Systolic blood pressure 110 mm[Hg] [facility] Work Phone: 01-26-2022 23:05-0400 Body height 160.02 cm [facility] Work Phone: 01-26-2022 23:05-0400 Body mass index (BMI) [Ratio] 24.7 kg/m2 [facility] Work Phone: 01-26-2022 23:05-0400 Body temperature 98 [degF] [facility] Work Phone: 01-26-2022 23:05-0400 Body weight 63.5 kg [facility] Work Phone: 01-20-2022 13:49-0400 Body weight 62.14 kg Alfredo Benitez MD Work Phone: [facility] 01-20-2022 13:49-0400 Diastolic blood pressure 52 mm[Hg] Alfredo Benitez MD Work Phone: [facility] 01-20-2022 13:49-0400 Systolic blood pressure 98 mm[Hg] Alfredo Benitez MD Work Phone: [facility] 01-02-2022 10:29-0400 Body height 162.6 cm Kayla Robb MD Work Phone: [facility] 01-02-2022 10:29-0400 Body weight 63.05 kg Kayla Robb MD Work Phone: [facility] 01-02-2022 10:29-0400 Diastolic blood pressure 62 mm[Hg] Kayla Robb MD Work Phone: [facility] 01-02-2022 10:29-0400 Systolic blood pressure 96 mm[Hg] Kayla Robb MD Work Phone: [facility] 12-23-2021 22:45-0400 Diastolic blood pressure 74 mm[Hg] [facility] Work Phone: 12-23-2021 22:45-0400 Heart rate 97 /min [facility] Work Phone: 12-23-2021 22:45-0400 Respiratory rate 14 /min [facility] Work Phone: 12-23-2021 22:45-0400 SaO2% (BldA) [Mass fraction] 97 % [facility] Work Phone: 12-23-2021 22:45-0400 Systolic blood pressure 109 mm[Hg] [facility] Work Phone: 12-23-2021 20:27-0400 Body height 162.56 cm [facility] Work Phone: 12-23-2021 20:27-0400 Body mass index (BMI) [Ratio] 20.5 kg/m2 [facility] Work Phone: 12-23-2021 20:27-0400 Body temperature 97.1 [degF] [facility] Work Phone: 12-23-2021 20:27-0400 Body weight 54.43 kg [facility] Work Phone: Encounters Encounter Date Encounter Type Care Provider Facility Start: 03-16-2025 End: 03-16-2025 Telephone encounter Lorena Sharma APRN.CNM Work Phone: OB/Gynecology Comment on above: OB spotting Start: 03-15-2025 End: 03-15-2025 Telephone encounter Kayla Robb MD Work Phone: OB/Gynecology Start: 03-13-2025 End: 03-13-2025 Patient encounter procedure Kayla Robb MD Work Phone: OB/Gynecology Comment on above: Supervision of high risk due to social problems, third trimester (HCC) (Primary Dx); 38 weeks gestation of (HCC); Vaginal discharge during in third trimester (HCC); History of herpes genitalis Start: 03-07-2025 End: 03-07-2025 Patient encounter procedure Kayla Robb MD Work Phone: OB/Gynecology Comment on above: Supervision of high risk due to social problems, third trimester (HCC) (Primary Dx); 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, single or unspecified fetus (HCC); 37 weeks gestation of (HCC) Start: 03-07-2025 End: 03-07-[facility] Start: 03-01-2025 End: 03-01-2025 Patient encounter procedure Kayla Robb MD Work Phone: OB/Gynecology Comment on above: Supervision of high risk due to social problems, third trimester (HCC) (Primary Dx); 36 weeks gestation of (HCC); History of herpes genitalis Start: 03-01-2025 End: 03-01-2025 [facility] Start: 02-14-2025 End: 02-14-2025 Office outpatient visit 15 minutes Lachelle Kramer MD Work Phone: OB/Gynecology Comment on above: Supervision of high risk due to social problems, third trimester (HCC) (Primary Dx); 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, single or unspecified fetus (HCC); 34 weeks gestation of (HCC) Start: 02-14-2025 End: 02-14-2025 Patient encounter procedure [employer] [facility] Comment on above: Anti-E isoimmunizati on 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, single or unspecified fetus (HCC) (Primary Dx); Maternal care for isoimmunization, second trimester, single gestation (HCC); History of hepatitis C; Tobacco smoking complicating in first trimester (HCC) Start: 02-14-2025 End: 02-14-2025 [facility] Start: 01-31-2025 End: 01-31-2025 Patient encounter procedure Kayla Robb MD Work Phone: OB/Gynecology Comment on above: Supervision of high risk due to social problems, third trimester (HCC) (Primary Dx); 32 weeks gestation of (HCC); 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, single or unspecified fetus (HCC) Start: 01-31-2025 End: 01-31-20[facility] Start: 01-17-2025 End: 01-17-2025 Patient encounter procedure Kayla Robb MD Work Phone: OB/Gynecology Comment on above: Supervision of high risk due to social problems, third trimester (HCC) (Primary Dx); 30 weeks gestation of (HCC) Encounter for ultras ound to check growth (HCC) (Primary Dx); Maternal care for isoimmunization, second trimester, single gestation (HCC); 30 weeks gestation of (HCC) Start: 01-17-2025 End: 01-17-2025 ambulatory [facility] Facility:[facility] Start: 01-08-2025 End: 03-10-2025 Follow-up encounter Rylee Scott APRN.CNP Work Phone: OB/Gynecology Start: 01-04-2025 End: 01-04-2025 Telephone encounter [employer] Aditya Chung Work Phone: Obstetrics/Gynecology Comment on above: PR[facility] Start: 01-03-2025 End: 01-03-2025 Patient encounter procedure Hank Boss MD Work Phone: OB/Gynecology Comment on above: Supervision of high risk due to social problems, third trimester (HCC) (Primary Dx); 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, single or unspecified fetus (HCC); 28 weeks gestation of (HCC); Need for vaccination Start: 01-03-2025 End: [facility] Start: 01-01-2025 End: 01-01-2025 Telephone encounter Belkis Shultz RN Obstetrics/Gynecolog y Comment on above: Follow Up Phone Call (28-32 week follow up call with OB Navigator ) Start: 12-20-2024 End: 12-20-2024 Patient encounter procedure Kayla Robb MD Work Phone: OB/Gynecology Comment on above: Supervision of high risk in second trimester (HCC) (Primary Dx); 26 weeks gestation of (HCC); 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, single or unspecified fetus (HCC); Tobacco smoking complicating in second trimester (HCC); General counseling and advice for contraceptive management Maternal care for is oimmunization, second trimester, single gestation (HCC) (Primary Dx); Supervision of high risk in second trimester (HCC); 26 weeks gestation of (HCC) Start: 12-20-2024 End: 12-20-2024 ambulatory TERESO SHAIKH Facility:[facility] Start: 12-07-2024 End: 12-07-2024 Follow-up encounter Roxanne Seema [facility] Work Phone: Genetic [facility] Start: 12-07-2024 End: 12-07-2024 Telephone encounter Lachelle Hickman MD Work Phone: Maternal Medicine [facility] Start: 12-06-2024 End: 12-06-2024 ambulatory Lachelle Hickman MD Work Phone: Maternal Medicine Comment on above: Anti-E isoimmunizati on 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, single or unspecified fetus (HCC) (Primary Dx) Start: 12-06-2024 End: 12-06-2024 Telemedicine consultation with patient Lachelle Hickman MD Work Phone: Maternal Medicine Start: 12-06-2024 End: 12-06-2024 ambulatory TERESO SHAIKH Facility:[facility] Start: 12-06-2024 End: 12-06-2024 Patient encounter procedure Kayla Robb MD Work Phone: OB/Gynecology Comment on above: Supervision of high risk in second trimester (HCC) (Primary Dx); 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, single or unspecified fetus (HCC); Tobacco smoking complicating in second trimester (HCC); 24 weeks gestation of (HCC) Encounter for ultras ound to check growth (HCC) (Primary Dx); Maternal care for isoimmunization, second trimester, single gestation (HCC); Supervision of high risk in second trimester (HCC); 24 weeks gestation of (HCC) Start: 11-29-2024 End: 11-29-2024 ambulatory TERESO SHAIKH Facility:[facility] Start: 11-29-2024 End: 11-29-2024 Patient encounter procedure Roxanne Cordoba [facility]GC Work Phone: Genetic Healthcare Comment on above: 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, second trimester, not applicable or unspecified fetus (Primary Dx); care, subsequent , second trimester Start: 11-27-2024 End: 11-27-2024 ambulatory Roxanne Cordoba [facility] Work Phone: [facility] [facility] Comment on above: 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, second trimester, not applicable or unspecified fetus (Primary Dx) Start: 11-27-2024 End: 11-27-2024 Telemedicine consultation with patient Roxanne HOSKINS Work Phone: [facility] Start: 11-23-2024 End: 11-23-2024 Orders Only Lachelle Hickman MD Work Phone: Maternal Medicine Comment on above: 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, second trimester, fetus 5 (Primary Dx) Refer / Community Re sources (OB Navigation and Resources ) Start: 11-22-2024 End: 11-22-2024 Office consultation new/estab patient 80 min Lachelle Hickman MD Work Phone: Maternal Medicine Comment on above: 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, in remission (Primary Dx); Maternal care for isoimmunization, second trimester, single gestation; 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, single or unspecified fetus; History of drug abuse (HCC); Family history of congenital heart defect; History of depression Start: 11-22-2024 End: 11-22-2024 ambulatory TERESO SHAIKH Facility:[facility] Start: 11-22-2024 End: 01-22-2025 Follow-up encounter Kayla Robb MD Work Phone: OB/Gynecology Start: 11-22-2024 End: 11-22-2024 Patient encounter procedure Lachelle Hickman MD Work Phone: Maternal Medicine Comment on above: Maternal care for is oimmunization, second trimester, single gestation; Supervision of high risk in second trimester Start: 11-22-2024 End: 11-22-2024 Telephone encounter Elena Campo Start: 11-09-2024 End: 11-09-2024 Telephone encounter Nurse Painter [employer] Aditya Chung Work Phone: Obstetrics/Gynecology Comment on above: PRAF Start: 11-08-2024 End: 11-08-2024 ambulatory TERESO SHAIKH Facility:[facility] Start: 11-08-2024 End: 11-08-2024 Patient encounter procedure Kayla Robb MD Work Phone: OB/Gynecology Comment on above: Supervision of high risk in second trimester (Primary Dx); 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, single or unspecified fetus; 20 weeks gestation of Start: 11-08-2024 End: 11-08-2024 ambulatory TERESO SHAIKH Facility:[facility] Start: 11-08-2024 End: 11-08-2024 Patient encounter procedure Whi Tech 1 [employer] Maternal Medicine Comment on above: Encounter for anatomic survey (Primary Dx); 20 weeks gestation of ; 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, single or unspecified fetus Start: 11-07-2024 End: 01-07-2025 Follow-up encounter Kayla Robb MD Work Phone: OB/Gynecology Comment on above: WOC Appointments (OB US q 2 weeks) Start: 11-03-2024 End: 11-07-2024 Telephone encounter Rema Alfred MD Work Phone: OB/Gynecology Comment on above: OB Question about Re sults Start: 10-30-2024 End: 10-30-2024 ambulatory TERESO SHAIKH Facility:[facility] Start: 10-11-2024 End: 10-11-2024 ambulatory TERESO SHAIKH Facility:[facility] Start: 10-11-2024 End: 10-11-2024 Patient encounter procedure Lorena Sharma APRN.CNM Work Phone: OB/Gynecology Comment on above: Supervision of high risk in second trimester (Primary Dx); 16 weeks gestation of ; 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, single or unspecified fetus; Tobacco smoking complicating in second trimester; Marijuana use during ; History of hepatitis C; History of depression Start: 10-03-2024 End: 10-03-2024 ambulatory JEREMIAS DELON Facility:[facility] Start: 10-03-2024 End: 10-03-2024 Office outpatient visit 25 minutes Francisoc Chavez PA-C Work Phone: [facility] Comment on above: Bronchopneumonia (Pr imary Dx) Start: 09-22-2024 End: 09-22-2024 Refill Kayla Robb MD Work Phone: OB/Gynecology Comment on above: Refill Request Start: 09-19-2024 End: 09-20-2024 Refill Kayla Robb MD Work Phone: OB/Gynecology Comment on above: Refill Request Start: 09-14-2024 End: 09-14-2024 Telephone encounter Rylee Scott APRN.CNP Work Phone: OB/Gynecology Comment on above: Results Start: 09-13-2024 End: 09-13-2024 ambulatory JEREMIAS DELON Facility:[facility] Start: 09-13-2024 End: 09-13-2024 Patient encounter procedure Whi Tech 1 [employer] [facility] Maternal Medicine Comment on above: Encounter for antena brenna screening for malformation using ultrasound (Primary Dx); 12 weeks gestation of Encounter for superv ision of high risk in first trimester, antepartum (Primary Dx); 12 weeks gestation of ; Nausea and vomiting during ; 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, single or unspecified fetus Start: 08-04-2024 End: 08-04-2024 Telephone encounter Rylee Scott APRN.CNP Work Phone: Obstetrics/Gynecology Comment on above: PRAF Start: 08-02-2024 End: 08-02-2024 ambulatory [facility] SH[facility] Facility:[facility] Start: 08-02-2024 End: 08-02-2024 Patient encounter procedure Rylee Scott APRN.ELECTRIC LOCOMOTIVE CRANE OPERATOR Work Phone: OB/Gynecology Comment on above: Encounter for superv ision of high risk in first trimester, antepartum (Primary Dx); with uncertain dates in first trimester; 6 weeks gestation of ; History of drug abuse (HCC); Marijuana use during ; History of hepatitis C; Tobacco smoking complicating in first trimester; History of herpes genitalis; Family history of congenital heart defect; Anxiety disorder, unspecified type; Depression, unspecified depression type; History of trichomoniasis; History of depression; History of chlamydia; History of blood transfusion; History of miscarriage; History of trauma; Nausea and vomiting during Start: 07-25-2024 End: 07-25-2024 Telephone encounter Rylee Scott APRN.ELECTRIC LOCOMOTIVE CRANE OPERATOR Work Phone: OB/Gynecology Comment on above: Appointment Start: 07-05-2024 End: 07-05-2024 ambulatory TERESO SHAIKH Facility:[facility] Start: 07-05-2024 End: 07-05-2024 Patient encounter procedure Gricelda Frostella MICHELE.ELECTRIC LOCOMOTIVE CRANE OPERATOR Work Phone: [facility] Comment on above: Acute cough (Primary Dx) Start: 03-15-2024 Telephone encounter Tereso irby MD Work Phone: Internal Medicine [facility] Comment on above: Needs a letter for n ew SS card Start: 10-14-2023 End: 10-14-2023 Patient encounter procedure Lorena Singh APRN.ELECTRIC LOCOMOTIVE CRANE OPERATOR Work Phone: [facility] Comment on above: Upper respiratory tr act infection, unspecified type (Primary Dx) Start: 08-04-2023 End: 08-04-2023 Patient encounter procedure Ilya PARIS Work Phone: [facility] Comment on above: Sinobronchitis (Prim pamela Dx); URI, acute Start: 03-22-2023 End: 03-22-2023 ambulatory No Primary Care Physician [place] Start: 01-20-2023 ambulatory Alexandra North RN NURSE O N CALL Comment on above: Information Start: 01-07-2023 ambulatory Kayla chapin MD Work Phone: OB/Gynecology Comment on above: control medica tion Start: 01-07-2023 E-mail encounter leonor m caregiver Kayla Robb MD Work Phone: [facility] Start: 01-07-2023 Telephone encounter Kayla Robb MD Work Phone: OB/Gynecology Comment on above: Medication Question (/) Start: 01-05-2023 Refill Abimbola [facility]enzuela PA-C [facility] Comment on above: Refill Request Start: 12-23-2022 Telephone encounter Abimbola white PA-C [facility] Comment on above: Medication Update Start: 12-01-2022 Refill Kayla chapin MD Work Phone: OB/Gynecology Comment on above: Refill Request Start: 11-27-2022 End: 11-27-2022 ambulatory Hepatology A5 Work Phone: Gastroenterology Start: 11-27-2022 End: 11-27-2022 Patient encounter procedure Hepatology Procedures A5 Work Phone: [facility] Start: 11-13-2022 Orders Only Abimbola Randhawaka PA-C Work Phone: Gastroenterology Comment on above: Chronic hepatitis C without hepatic coma (HCC) (Primary Dx) Start: 10-27-2022 End: 10-27-2022 Subsequent hospital visit by physician [facility] Work Phone: Radiology Comment on above: Chronic hepatitis C without hepatic coma (HCC) [B18.2] Start: 09-09-2022 End: 09-09-2022 Patient encounter procedure Kayla Robb MD Work Phone: OB/Gynecology Comment on above: care and examination (Primary Dx); Encounter for BCP ( control pills) initial prescription Start: 08-12-2022 End: 08-12-2022 Patient encounter procedure Kayla Robb MD Work Phone: OB/Gynecology Comment on above: Routine f ollow-up (Primary Dx); Chronic active hepatitis (HCC) Start: 08-06-2022 ambulatory Kayla chapin MD Work Phone: OB/Gynecology Comment on above: Ob Delivery Note Start: 08-05-2022 End: 08-07-2022 Evaluation and management of inpatient No Primary Care Physician Facility:[facility] Start: 08-05-2022 End: 08-07-2022 Evaluation and management of inpatient [facility] [place] Start: 07-29-2022 End: 07-29-2022 Patient encounter procedure Kayla Robb MD Work Phone: OB/Gynecology Comment on above: 36 weeks gestation o f (Primary Dx); Supervision of high risk in third trimester Anti-E isoimmunizati on 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, single or unspecified fetus (Primary Dx); High-risk in third trimester; 36 weeks gestation of Start: 07-21-2022 End: 07-21-2022 Patient encounter procedure Stephani Cano MD Work Phone: Maternal Medicine Comment on above: Anti-E isoimmunizati on 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, single or unspecified fetus (Primary Dx); High-risk in third trimester; 35 weeks gestation of Supervision of high risk in third trimester (Primary Dx); 35 weeks gestation of Start: 07-14-2022 End: 07-14-2022 Patient encounter procedure Stephani Cano MD Work Phone: Maternal Medicine Comment on above: Anti-E isoimmunizati on 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, single or unspecified fetus (Primary Dx); High-risk in third trimester; 34 weeks gestation of High-risk in third trimester; 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, single or unspecified fetus Start: 07-07-2022 End: 07-07-2022 Patient encounter procedure Kayla Robb MD Work Phone: OB/Gynecology Comment on above: 33 weeks gestation o f (Primary Dx); High-risk in third trimester Anti-E isoimmunizati on 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, single or unspecified fetus (Primary Dx); High-risk in third trimester; 33 weeks gestation of Start: 06-27-2022 End: 06-27-2022 ambulatory No Primary Care Physician Facility:[facility] Start: 06-27-2022 End: 06-27-2022 ambulatory No Primary Care Physician [facility] Work Phone: Start: 06-27-2022 End: 06-27-2022 Patient encounter procedure No Primary Care Physician [facility] [place] Start: 06-26-2022 End: 06-26-2022 Patient encounter procedure Kayla Robb MD Work Phone: OB/Gynecology Comment on above: 31 weeks gestation o f (Primary Dx); High-risk in third trimester; 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, single or unspecified fetus; Chronic hepatitis C without hepatic coma (HCC) Uterine size-date di screpancy, third trimester [O26.843 (ICD-10-CM)] (Primary Dx); 29 weeks gestation of ; Supervision of high risk in third trimester; 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, single or unspecified fetus; 31 weeks gestation of 31 weeks gestation o f ; High-risk in third trimester; 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, single or unspecified fetus; Chronic hepatitis C without hepatic coma (HCC) Start: 06-25-2022 Telephone encounter Kayla Robb MD Work Phone: OB/Gynecology Comment on above: Orders Start: 06-10-2022 End: 06-10-2022 Patient encounter procedure Kayla Robb MD Work Phone: OB/Gynecology Comment on above: 29 weeks gestation o f (Primary Dx); Supervision of high risk in third trimester; 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, single or unspecified fetus Start: 05-25-2022 End: 05-25-2022 Patient encounter procedure Kayla Robb MD Work Phone: OB/Gynecology Comment on above: 27 weeks gestation o f (Primary Dx); 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, single or unspecified fetus; High-risk in second trimester; Need for Tdap vaccination Start: 05-08-2022 Telephone encounter Alfredo gilliland MD Work Phone: OB/Gynecology Comment on above: Medication Question Start: 05-08-2022 End: 05-08-2022 Emergency department patient visit No Primary Care Physician Facility:[facility] Start: 05-07-2022 End: 05-08-2022 Emergency department patient visit No Primary Care Physician [facility] Start: 04-24-2022 End: 04-24-2022 Patient encounter procedure Kayla Robb MD Work Phone: OB/Gynecology Comment on above: High-risk in second trimester (Primary Dx); 22 weeks gestation of ; 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, single or unspecified fetus Start: 03-31-2022 End: 03-31-2022 Patient encounter procedure Stephani Cano MD Work Phone: Maternal Medicine Comment on above: Encounter for anatomic survey (Primary Dx); 19 weeks gestation of Start: 03-17-2022 End: 03-17-2022 Patient encounter procedure Kayla Robb MD Work Phone: OB/Gynecology Comment on above: 17 weeks gestation o f (Primary Dx); High-risk in second trimester; 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, single or unspecified fetus Start: 03-12-2022 End: 03-12-2022 Patient encounter procedure No Primary Care Physician [facility] Start: 02-27-2022 Telephone encounter Nelda ignacio APRN.CNM Work Phone: OB/Gynecology Comment on above: Patient Question Start: 02-27-2022 End: 02-27-2022 Emergency department patient visit No Primary Care Physician [facility] Start: 02-19-2022 Telephone encounter Stephani rowley MD Work Phone: Maternal Medicine Comment on above: First Seq Results Start: 02-18-2022 Telephone encounter Kayla Robb MD Work Phone: OB/Gynecology Comment on above: Patient Update Start: 02-17-2022 End: 02-17-2022 Patient encounter procedure Kayla Robb MD Work Phone: OB/Gynecology Comment on above: Screen for STD (sexu ally transmitted disease) (Primary Dx); 13 weeks gestation of ; Drug use disorder; Supervision of other high risk pregnancies, first trimester; Viral hepatitis complicating , second trimester; Encounter for screening of mother Encounter for (NT) n uchal translucency scan (Primary Dx); 13 weeks gestation of Start: 02-10-2022 Telephone encounter Fine Arts Model RN Obstetrics/Gynecology Comment on above: PRAF FORM Start: 01-26-2022 End: 01-26-2022 Emergency department patient visit [facility] Start: 01-22-2022 Telephone encounter Alfredo gilliland MD Work Phone: OB/Gynecology Comment on above: Results Start: 01-20-2022 End: 01-20-2022 Patient encounter procedure Alfredo Benitez MD Work Phone: OB/Gynecology Comment on above: Encounter for superv ision of normal in multigravida in first trimester (Primary Dx); Uncertain dates, antepartum, first trimester; Gonorrhea affecting in first trimester; Screen for STD (sexually transmitted disease) Start: 01-09-2022 Telephone encounter Kayla Robb MD Work Phone: OB/Gynecology Comment on above: Results Start: 01-02-2022 End: 01-02-2022 Patient encounter procedure Kayla Robb MD Work Phone: OB/Gynecology Comment on above: Encounter for superv ision of normal in multigravida in first trimester (Primary Dx); Encounter for screening for malignant neoplasm of cervix; Uncertain dates, antepartum, first trimester; Viral hepatitis complicating , first trimester; Supervision of other high risk pregnancies, first trimester; Hepatitis C virus carrier state (HCC); Drug use disorder Start: 01-01-2022 Telephone encounter Kayla Robb MD Work Phone: OB/Gynecology Comment on above: Missed Appointment Start: 12-23-2021 End: 12-23-2021 Emergency department patient visit [facility] Start: 12-23-2021 Telephone encounter Kayla Robb MD Work Phone: OB/Gynecology Comment on above: Future Appointment Start: 07-13-2017 Evaluation and management of inpatient UNKNOWN PROVIDER [facility] Start: 07-13-2017 End: 07-13-2017 Emergency department patient visit [facility] Facility:B Procedures Date Procedure Procedure Detail Performing Clinician Start: 03-07-2025 Urnls dip stick/tabl et rgnt non-auto w/o micrscp Kayla Robb MD Work Phone: Start: 03-01-2025 Urnls dip stick/tabl et rgnt non-auto w/o micrscp Kayla Robb MD Work Phone: Start: 02-14-2025 Urnls dip stick/tabl et rgnt non-auto w/o micrscp Lachelel Kramer MD Work Phone: Start: 02-14-2025 Us preg uterus after 1st trimest 1/1st gestation Kayla Robb MD Work Phone: Start: 01-17-2025 Us preg uterus after 1st trimest 1/1st gestation Kayla Robb MD Work Phone: Start: 12-20-2024 Us preg uterus after 1st trimest 1/1st gestation Kayla Robb MD Work Phone: Start: 12-06-2024 Us preg uterus after 1st trimest 1/1st gestation Kayla Robb MD Work Phone: Start: 11-29-2024 Antibody screen TERESO SHAIKH Comment on above: Order Comment: Speci men Type: BLOOD SPECIMEN Ordering Facility: [facility] Address: [address] [place] [address] Performed By: #### L [id number], BBABINT #### [facility] CLIA [id number] [place] #### ASCR, %JTEHRO #### [place] [facility] CLIA [id number] [place] Start: 11-22-2024 Us preg uterus after 1st trimest 1/ gestation Kayla Robb MD Work Phone: Start: 11-08-2024 Us preg uterus after 1st trimest 09/06 gestation Rylee Scott APRN.ELECTRIC LOCOMOTIVE CRANE OPERATOR Work Phone: Start: 10-30-2024 Antibody screen TERESO SHAIKH Comment on above: Order Comment: Speci men Type: BLOOD SPECIMENOrdering Facility: [facility] Address: [address] [place] [address] Performed By: #### A SCR, %JETHRO, DAGT, ABORH, ABT, BBABINT ####[facility] BANKCLIA [id number] [address] Start: 09-13-2024 Antibody screen TERESO SHAIKH Comment on above: Order Comment: Speci men Type: BLOOD SPECIMENOrdering Facility: [facility] Address: [address] [place] [address] Performed By: #### T SPN, %JETHRO, BBABINT, ABT ####[facility] BLOOD BANKCLIA [id number] [address] [place] Start: 09-13-2024 Us nuchal cooley slucency 1st gestation Rylee Scott APRN.ELECTRIC LOCOMOTIVE CRANE OPERATOR Work Phone: Start: 08-02-2024 Us uterus l imited 1/> fetuses Rylee Scott APRN.ELECTRIC LOCOMOTIVE CRANE OPERATOR Work Phone: Start: 10-14-2023 STREP A MOLECULAR (POC) Rodolfo Solis APRN.ELECTRIC LOCOMOTIVE CRANE OPERATOR Work Phone: Start: 11-27-2022 Liver elastography w /o imag w/i&r Abimbola Valenzuela PA-C Work Phone: Start: 11-27-2022 Liver elastography w /o imag w/i&r Abimbola Valenzuela PA-C Work Phone: Start: 10-27-2022 Us abdominal real ti me w/image limited Abimbola Nicolas MORTENSEN Work Phone: Start: 07-29-2022 URINE OB DIP B/O Ada Robb MD Work Phone: Start: 07-29-2022 biophysical pr ofile non-stress testing Kayla Robb MD Work Phone: Start: 07-21-2022 URINE OB DIP B/O Alfredo Benitez MD Work Phone: Start: 07-21-2022 biophysical pr ofile non-stress testing Kayla Robb MD Work Phone: Start: 07-14-2022 biophysical pr ofile non-stress testing Kayla Robb MD Work Phone: Start: 07-07-2022 URINE OB DIP B/O Ada Robb MD Work Phone: Start: 07-07-2022 Us preg uterus after 1st trimest 09/06 gestation Kayla Robb MD Work Phone: Start: 06-26-2022 Us preg uterus after 1st trimest 09/06 gestation Kayla Robb MD Work Phone: Start: 06-10-2022 URINE OB DIP B/O Ada Robb MD Work Phone: Start: 05-25-2022 URINE OB DIP B/O Ada Robb MD Work Phone: Start: 05-07-2022 Plain chest X-ray No [facility] Start: 04-24-2022 URINE OB DIP B/O Ada Robb MD Work Phone: Start: 03-31-2022 Us preg uterus after 1st trimest 09/06 gestation Kayla Robb MD Work Phone: Start: 03-17-2022 URINE OB DIP B/O Ada Robb MD Work Phone: Start: 02-17-2022 Us nuchal cooley slucency 1st gestation Kayla Robb MD Work Phone: Start: 01-20-2022 URINE OB DIP B/O Ada Robb MD Work Phone: Start: 12-23-2021 Transvaginal obstetr ic ultrasonography Plan of Treatment Date Care Activity Detail Author Start: 01-03-2035 Urine microalbumin profile DTaP,Tdap,Td Vaccine (4 - Td or Tdap) [facility] Start: 05-25-2032 Urine microalbumin profile [facility] Start: 09-13-2025 Covid-19 Vaccine ( season) Covid-19 Vaccine () [facility] Comment on above: Postponed from 05/07 (Declined at this time) Start: 05-07-2025 Influenza vaccination [facility] Start: 03-16-2025 End: 03-16-2025 Patient encounter procedure 03/16/2025 10:20 AM EDT Routine Office Visit OB/Gynecology [address] [place], [place] [id number] Alfredo Benitez MD [address] [place] [id number] OB OB/Gynecology Comment on above: OB Start: 03-07-2025 End: 03-07-2025 Patient encounter procedure 03/07/2025 11:00 AM EDT Routine Office Visit OB/Gynecology [address] [place] [id number] Kayla Robb MD [address] [place] [id number] OB OB/Gynecology Comment on above: OB Start: 03-05-2025 Influenza vaccination Influenza Vacc ine (#1) [facility] Comment on above: Postponed from 05/07 (Declined at this time) Start: 02-28-2025 End: 02-28-2025 Patient encounter procedure 02/28/2025 10:40 AM EDT Routine Office Visit OB/Gynecology [address] [place] [address] Kayla Robb MD [address] [place] [address] OB OB/Gynecology Comment on above: OB Start: 02-14-2025 End: 02-14-2025 Patient encounter procedure Maternal Medicine Comment on above: Growth OB/ Growth Start: 01-31-2025 End: 01-31-2025 Patient encounter procedure 01/31/2025 11:20 AM EDT Routine Office Visit OB/Gynecology [address] [place] [address] Kayla Robb MD [address] [place] [address] OB OB/Gynecology Comment on above: OB Start: 01-17-2025 End: 01-17-2025 Patient encounter procedure Maternal Medicine Comment on above: Growth OB Growth/MCA dopplers Start: 01-03-2025 End: 01-03-2025 Patient encounter procedure Maternal Medicine Comment on above: Growth OB Growth/MCA dopplers Start: 01-03-2025 End: 01-03-2025 ambulatory 01/03/2025 1:15 PM EDT Results Only Laila Blakely [facility] [address] [place] [address] Glucose test and LABS [facility] Comment on above: Glucose test and LAB S Start: 01-02-2025 PAP TESTING PAP TESTING [facility] Start: 01-02-2025 Screening for malign ant neoplasm of cervix [facility] Start: 12-20-2024 End: 12-20-2024 ambulatory 12/20/2024 1:45 PM EDT Results Only Laila [facility] Draw Station [address] [place] [address] [facility] Draw Station Start: 12-20-2024 End: 12-20-2024 Patient encounter procedure Maternal Medicine Comment on above: Growth OB Growth/MCA dopplers Start: 12-06-2024 End: 12-06-2024 ambulatory 12/06/2024 3:45 PM EDT [facility] Maternal Medicine [address] [place] [address] [place] [address] [place], [place] [id number] Virtual est mfm Maternal Medicine Comment on above: Virtual est mfm Start: 12-06-2024 End: 03-07-2025 ANEMIA REFLEX PANEL ANEMIA REFLEX PANEL Lab Routine Supervision of high risk in second trimester 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, single or unspecified fetus Tobacco smoking complicating in second trimester 24 weeks gestation of Expected: 12/06/2024, Expires: 03/07/[address] [facility] Comment on above: Expected: 12/06/2024 , Expires: 03/07/2025 Start: 12-06-2024 End: 12-06-2025 GESTATIONAL GLUCOSE SCREEN, 1-HOUR, 50 GRAM, NON-FASTING GESTATIONAL GLUCOSE SCREEN, 1-HOUR, 50 GRAM, NON-FASTING Lab Routine Supervision of high risk in second trimester 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, single or unspecified fetus Tobacco smoking complicating in second trimester 24 weeks gestation of Expected: 12/06/2024, Expires: 12/06/2025 [facility] Work Phone: Comment on above: Expected: 12/06/2024 , Expires: 12/06/2025 Start: 12-06-2024 End: 12-06-2025 SYPHILIS TREPONEMAL W/REFLEX SYPHILIS TREPONEMAL W/REFLEX Lab Routine Supervision of high risk in second trimester 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, single or unspecified fetus Tobacco smoking complicating in second trimester 24 weeks gestation of Expected: 12/06/2024, Expires: 12/06/[address] [facility] Comment on above: Expected: 12/06/2024 , Expires: 12/06/2025 Start: 12-06-2024 End: 12-06-2024 Patient encounter procedure Maternal Medicine Comment on above: Growth OB Growth/MCA dopplers Start: 11-29-2024 End: 11-29-2024 Patient encounter procedure 11/29/2024 12:00 PM EDT Office Visit [facility] [address] [place] [id number] Roxanne Cordoba, [facility] [address] [place] [address] consult [facility] Comment on above: consult Start: 11-27-2024 End: 11-27-2024 ambulatory 11/27/2024 9:00 AM [facility] [place] [address] [place] [address] Roxanne Cordoba, [facility] [address] [place] [address] The antibody that s affecting my . GMINE WALL WASHER [facility]AY[facility] Comment on above: The antibody that s affecting my . Start: 11-22-2024 End: 11-22-2024 Patient encounter procedure Maternal Medicine Comment on above: Maternal care for is oimmunization, second trimester, single gestation [O36.1120] Start: 11-08-2024 End: 11-08-2024 Patient encounter procedure OB/Gynecology Comment on above: OB Routine OB Routine PLEASE SIST SCHEDULING OB US q 2 WKS Start: 11-08-2024 End: 02-07-2025 Antibody screen ANTIBODY SCREEN Blood Bank Routine Supervision of high risk in second trimester 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, single or unspecified fetus 20 weeks gestation of Expected: 11/08/2024, Expires: 02/07/2025 [facility] Work Phone: Comment on above: Expected: 11/08/2024 , Expires: 02/07/2025 Start: 11-08-2024 End: 11-08-2024 Patient encounter procedure 11/08/2024 1:30 PM EST Routine Office Visit Maternal Medicine [address] [place] [address] Anatomy Scan Maternal Medicine Comment on above: Anatomy Scan Start: 10-11-2024 End: 01-10-2025 Antibody screen ANTIBODY SCREEN Blood Bank Routine 16 weeks gestation of 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, single or unspecified fetus Expected: 10/11/2024, Expires: 01/10/2025 [facility] Work Phone: Comment on above: Expected: 10/11/2024 , Expires: 01/10/2025 Start: 10-11-2024 End: 10-11-2024 Patient encounter procedure 10/11/2024 10:30 AM EST Routine Office Visit OB/Gynecology [address] [place], [place] [id number] Lorena Sharma APRN.CNM [address] [place] [address] OB Routine OB/Gynecology Comment on above: OB Routine Start: 09-13-2024 End: 09-13-2024 Patient encounter procedure Maternal Medicine Comment on above: Nuchal OB Routine Start: 08-02-2024 End: 11-01-2024 ANEMIA REFLEX PANEL ANEMIA REFLEX PANEL Lab Routine Encounter for supervision of high risk in first trimester, antepartum Expected: 08/02/2024, Expires: 11/01/2024 [facility] Work Phone: Comment on above: Expected: 08/02/2024 , Expires: 11/01/2024 Start: 08-02-2024 End: 11-01-2024 Chromosome 21 trisomy [Presence] in Blood or Tissue by Cytogenetics [id number] PLUS Lab Routine Encounter for supervision of high risk in first trimester, antepartum 6 weeks gestation of Expected: 08/02/2024, Expires: 11/01/[address] [facility] Comment on above: Expected: 08/02/2024 , Expires: 11/01/2024 Start: 08-02-2024 End: 11-01-2024 Comprehensive metabolic 2000 panel - Serum or Plasma COMPREHENSIVE METABOLIC PANEL Lab Routine History of hepatitis C Expected: 08/02/2024, Expires: 11/01/[address] [facility] Comment on above: Expected: 08/02/2024 , Expires: 11/01/2024 Start: 08-02-2024 End: 11-01-2024 Hemoglobin A1c in Blood HEMOGLOBIN A1C Lab Routine Encounter for supervision of high risk in first trimester, antepartum Expected: 08/02/2024, Expires: 11/01/[address] [facility] Comment on above: Expected: 08/02/2024 , Expires: 11/01/2024 Start: 08-02-2024 End: 11-01-2024 Hepatitis B virus surface Ag [Presence] in Serum HEPATITIS B SURFACE ANTIGEN Lab Routine Encounter for supervision of high risk in first trimester, antepartum Expected: 08/02/2024, Expires: 11/01/[address] [facility] Comment on above: Expected: 08/02/2024 , Expires: 11/01/2024 Start: 08-02-2024 End: 11-01-2024 Hepatitis C virus Ab [Presence] in Serum HEPATITIS C ANTIBODY IA WITH CONFIRMATION Lab Routine Encounter for supervision of high risk in first trimester, antepartum Expected: 08/02/2024, Expires: 11/01/[address] [facility] Comment on above: Expected: 08/02/2024 , Expires: 11/01/2024 Start: 08-02-2024 End: 11-01-2024 HIV 1+2 Ab [Presence] in Serum or Plasma by Immunoassay HIV 1/2 COMBO WITH REFLEX TO DIFFERENTIATION Lab Routine Encounter for supervision of high risk in first trimester, antepartum Expected: 08/02/2024, Expires: 11/01/[address] [facility] Comment on above: Expected: 08/02/2024 , Expires: 11/01/2024 Start: 08-02-2024 End: 08-02-2025 NUCHAL TRANSLUCENCY WHI NUCHAL TRANSLUCENCY WHI Anc Imaging Routine Encounter for supervision of high risk in first trimester, antepartum Expected: 08/02/2024, Expires: 08/02/[address] [facility] Comment on above: Expected: 08/02/2024 , Expires: 08/02/2025 Start: 08-02-2024 End: 08-02-2025 OBSTETRIC ULTRASOUND WHI OBSTETRIC ULTRASOUND WHI Anc Imaging Routine Encounter for supervision of high risk in first trimester, antepartum Expected: 08/02/2024, Expires: 08/02/[address] [facility] Comment on above: Expected: 08/02/2024 , Expires: 08/02/2025 Start: 08-02-2024 End: 11-01-2024 RUBELLA IGG ANTIBODY RUBELLA IGG ANTIBODY Lab Routine Encounter for supervision of high risk in first trimester, antepartum Expected: 08/02/2024, Expires: 11/01/[address] [facility] Comment on above: Expected: 08/02/2024 , Expires: 11/01/2024 Start: 08-02-2024 End: 11-01-2024 SYPHILIS TREPONEMAL W/REFLEX SYPHILIS TREPONEMAL W/REFLEX Lab Routine Encounter for supervision of high risk in first trimester, antepartum Expected: 08/02/2024, Expires: 11/01/[address] [facility] Comment on above: Expected: 08/02/2024 , Expires: 11/01/2024 Start: 08-02-2024 End: 11-01-2024 TYPE + SCREEN TYPE + SCREEN Blood Bank Routine Encounter for supervision of high risk in first trimester, antepartum Expected: 08/02/2024, Expires: 11/01/[address] [facility] Comment on above: Expected: 08/02/2024 , Expires: 11/01/2024 Start: 08-02-2024 End: 08-02-2024 Patient encounter procedure 08/02/2024 11:00 AM EST Initial Office Visit OB/Gynecology [address] [place], [place] [phone] Rylee Scott, LENY.ELECT[employer]IC LOCOMOTIVE CRANE OPERATOR [address] [place] [place] [address] + test care center - 4 weeks on 07/17- per patient OB/Gynecology Comment on above: + test pre gnancy care center - 4 weeks on 07/17- per patient Start: 05-07-2024 Covid-19 Vaccine ( season) Covid-19 Vaccine () [facility] Start: 05-07-2024 Influenza vaccination Influenza Vacc ine (#1) [facility] Start: 04-26-2024 End: 04-26-2024 Patient encounter procedure 04/26/2024 6:20 PM EDT Office Visit Internal Medicine [facility] [address] [place] [address] Maria Guadalupe Rivers, MD ALLERGY IMMUNOLOGY.ELECTRIC LOCOMOTIVE CRANE OPERATOR [address] [place] [address] Annual Physical [facility] Medicine [facility] Comment on above: Annual Physical Start: 02-17-2024 Covid-19 Vaccine (#1) Covid-19 Vacci ne (#1) [facility] Comment on above: Postponed from 10/03 (Declined at this time) Start: 02-17-2024 Hepatitis A Vaccine (1 of 2 - Risk 2-dose series) Hepatitis A Vaccine (1 of 2 - Risk 2-dose series) [facility] Comment on above: Postponed from 04/02 (Declined at this time) Start: 02-17-2024 Pneumococcal vaccination [facility] Comment on above: Postponed from 04/02 (Declined at this time) Start: 10-31-2023 Urine microalbumin profile DTAP,TDAP,TD (2 - Td or Tdap) [facility] Start: 05-07-2023 Covid-19 Vaccine ( season) Covid-19 Vaccine ( season) [facility] Start: 05-07-2023 Influenza vaccination [facility] Start: 09-06-2022 DEPRESSION ASSESSMENT DEPRESSION ASS ESSMENT [facility] Start: 08-07-2022 Patient discharge [facility] Work Phone: Start: 08-05-2022 Administration of medication [facility] Work Phone: Start: 08-05-2022 Application of ice collar, cap or bag [facility] Work Phone: Start: 08-05-2022 Catheterization of vein [facility] Work Phone: Start: 08-05-2022 Introduction of urin pamela catheter [facility] Work Phone: Start: 08-05-2022 Measuring intake and output [facility] Work Phone: Start: 08-05-2022 Notification of physician [facility] Work Phone: Start: 08-05-2022 Procedure discontinued [facility] Work Phone: Start: 08-05-2022 Provision of activit y privileges [facility] Work Phone: Start: 08-05-2022 Vital signs measurements [facility] Work Phone: Start: 08-05-2022 [facility] Work Phone: Start: 08-05-2022 Leukocyte reduced re d blood cells [facility] Work Phone: Start: 08-05-2022 [facility] Work Phone: Start: 08-05-2022 Admission procedure [facility] Work Phone: Start: 08-05-2022 Verification routine [facility] Work Phone: Start: 08-05-2022 Consultation [facility] Work Phone: Start: 07-27-2022 PAP TESTING PAP TESTING [facility] Start: 06-27-2022 Nonstress test [facility] Work Phone: Start: 06-27-2022 Obstetric monitoring [facility] Work Phone: Start: 06-27-2022 Vital signs measurements [facility] Work Phone: Start: 06-27-2022 [facility] Work Phone: Start: 06-27-2022 Patient discharge [facility] Work Phone: Start: 06-26-2022 End: 08-26-2022 ANTIBODY TITER ANTIBODY TITER Blood Bank Routine 31 weeks gestation of High-risk in third trimester 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, single or unspecified fetus Chronic hepatitis C without hepatic coma (HCC) Expected: 06/26/2022, Expires: 08/26/2022 [facility] Work Phone: Comment on above: Expected: 06/26/2022 , Expires: 08/26/2022 Start: 06-26-2022 End: 08-26-2022 Hepatic function 2000 panel - Serum or Plasma HEPATIC FUNCTION PNL Lab Routine 31 weeks gestation of High-risk in third trimester 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, single or unspecified fetus Chronic hepatitis C without hepatic coma (HCC) Expected: 06/26/2022, Expires: 08/26/2022 [facility] Work Phone: Comment on above: Expected: 06/26/2022 , Expires: 08/26/2022 Start: 06-26-2022 End: 06-26-2023 OBSTETRIC ULTRASOUND [facility] Work Phone: Comment on above: Expected: 06/26/2022 , Expires: 06/25/2023 Expected: 06/26/2022 , Expires: 06/26/2023 Start: 05-25-2022 End: 07-25-2022 HIV 1+2 Ab [Presence] in Serum or Plasma by Immunoassay [facility] Work Phone: Comment on above: Expected: 05/25/2022 , Expires: 07/25/2022 Start: 05-07-2022 Influenza vaccination [facility] Start: 04-24-2022 End: 06-24-2022 CBC W Auto Differential panel - Blood CBC + DIFF Lab Routine High-risk in second trimester 22 weeks gestation of Expected: 04/24/2022, Expires: 06/24/2022 [facility] Work Phone: Comment on above: Expected: 04/24/2022 , Expires: 06/24/2022 Start: 04-24-2022 End: 06-24-2022 GEST GLUC SCREEN, 1-HR, 50 GM, NON-FASTING GEST GLUC SCREEN, 1-HR, 50 GM, NON-FASTING Lab Routine High-risk in second trimester 22 weeks gestation of Expected: 04/24/2022, Expires: 06/24/2022 [facility] Work Phone: Comment on above: Expected: 04/24/2022 , Expires: 06/24/2022 Start: 04-24-2022 End: 06-24-2022 SYPHILIS TOTAL W/REFLEX SYPHILIS TOTAL W/REFLEX Lab Routine High-risk in second trimester 22 weeks gestation of Expected: 04/24/2022, Expires: 06/24/2022 [facility] Work Phone: Comment on above: Expected: 04/24/2022 , Expires: 06/24/2022 Start: 03-03-2022 End: 04-28-2022 SEQUENTIAL SCRN SCND TRIMESTER SEQUENTIAL SCRN SCND TRIMESTER Lab Routine 13 weeks gestation of Supervision of other high risk pregnancies, first trimester Encounter for screening of mother Expected: 03/03/2022 (Approximate), Expires: 04/28/2022 [facility] Work Phone: Comment on above: Expected: 03/03/2022 (Approximate), Expires: 04/28/2022 Start: 02-17-2022 End: 04-19-2022 SEQUENTIAL SCRN FRST TRIMESTER [facility] Work Phone: Comment on above: Expected: 02/17/2022 , Expires: 04/19/2022 Start: 01-20-2022 End: 03-22-2022 HSV 1,2 ANTIBODIES IGG+IGM HSV 1,2 ANTIBODIES IGG+IGM Lab Routine Screen for STD (sexually transmitted disease) Expected: 01/20/2022, Expires: 03/22/2022 [facility] Work Phone: Comment on above: Expected: 01/20/2022 , Expires: 03/22/2022 Start: 01-02-2022 End: 03-04-2022 CBC panel - Blood by Automated count CBC Lab Routine Encounter for supervision of normal in multigravida in first trimester Expected: 01/02/2022, Expires: 03/04/2022 [facility] Work Phone: Comment on above: Expected: 01/02/2022 , Expires: 03/04/2022 Start: 01-02-2022 End: 03-04-2022 Hepatitis B virus surface Ab [Presence] in Serum by Immunoassay HEP B SURF AG SCRN Lab Routine Encounter for supervision of normal in multigravida in first trimester Expected: 01/02/2022, Expires: 03/04/2022 [facility] Work Phone: Comment on above: Expected: 01/02/2022 , Expires: 03/04/2022 Start: 01-02-2022 End: 03-04-2022 Hepatitis C virus RNA [Units/volume] (viral load) in Serum or Plasma by YELENA with probe detection HCV QUANT RNA BY PCR Lab Routine Encounter for supervision of normal in multigravida in first trimester Viral hepatitis complicating , first trimester Expected: 01/02/2022, Expires: 03/04/2022 [facility] Work Phone: Comment on above: Expected: 01/02/2022 , Expires: 03/04/2022 Start: 01-02-2022 End: 03-04-2022 HIV 1+2 Ab [Presence] in Serum or Plasma by Immunoassay HIV 1 2 COMBO(AG/AB),WITH REFLEX TO DIFFERENTIATION Lab Routine Encounter for supervision of normal in multigravida in first trimester Expected: 01/02/2022, Expires: 03/04/2022 [facility] Work Phone: Comment on above: Expected: 01/02/2022 , Expires: 03/04/2022 Start: 01-02-2022 End: 03-04-2022 RUBELLA IGG AB RUBELLA IGG AB Lab Routine Encounter for supervision of normal in multigravida in first trimester Expected: 01/02/2022, Expires: 03/04/2022 [facility] Work Phone: Comment on above: Expected: 01/02/2022 , Expires: 03/04/2022 Start: 01-02-2022 End: 03-04-2022 SYPHILIS TOTAL W/REFLEX SYPHILIS TOTAL W/REFLEX Lab Routine Encounter for supervision of normal in multigravida in first trimester Expected: 01/02/2022, Expires: 03/04/2022 [facility] Work Phone: Comment on above: Expected: 01/02/2022 , Expires: 03/04/2022 Start: 01-02-2022 End: 03-04-2022 TYPE + SCREEN TYPE + SCREEN Blood Bank Routine Encounter for supervision of normal in multigravida in first trimester Expected: 01/02/2022, Expires: 03/04/2022 [facility] Work Phone: Comment on above: Expected: 01/02/2022 , Expires: 03/04/2022 Start: 09-06-2021 DEPRESSION ASSESSMENT DEPRESSION ASS ESSMENT [facility] Start: 2014 Hepatitis A Vaccine (1 of 2 - Risk 2-dose series) Hepatitis A Vaccine (1 of 2 - Risk 2-dose series) [facility] Start: 2014 Pneumococcal vaccination Pneum ococcal Vaccine (1 of 2 - PCV) [facility] Start: 2014 Urine microalbumin profile DTAP,TDAP,TD (1 - Tdap) [facility] Start: 2009 PEDS TO ADULT TRANSI TION ANNUAL ASSESSMENT PEDS TO ADULT TRANSITION ANNUAL ASSESSMENT [facility] Start: 2007 Adult depression screening assessment DEPRESSION SCREENING [facility] Start: 2007 PEDS TO ADULT TRANSI TION INITIAL DISCUSSION PEDS TO ADULT TRANSITION INITIAL DISCUSSION [facility] Start: 2006 HPV VACCINE (1 - 2-d ose series) HPV VACCINE (1 - 2-dose series) [facility] Start: 2001 PNEUMOCOCCAL (1 - PCV) PNEUMOCOCCAL (1 - PCV) [facility] Start: 2001 Pneumococcal vaccination Pneum ococcal Vaccine (1 of 2 - PCV) [facility] Start: 2000 COVID-19 VACCINE (#1) COVID-19 VACCI NE (#1) [facility] Start: 2000 COVID-19 VACCINE (1) COVID-19 VACCIN E (1) [facility] Start: 1996 HEPATITIS A (1 of 2 - Risk 2-dose series) HEPATITIS A (1 of 2 - Risk 2-dose series) [facility] Start: 1995 COVID-19 VACCINE (#1) COVID-19 VACCI NE (#1) [facility] Start: 1995 HEPATITIS B (1 of 3 - 3-dose series) HEPATITIS B (1 of 3 - 3-dose series) [facility] End: 03-17-2023 Antibody screen ANTIBODY SCREEN Blood Bank Routine High-risk in second trimester 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, single or unspecified fetus Once per month for 6 Occurrences starting 03/17/2022 until 03/17/2023 [facility] Work Phone: Comment on above: Once per month for 6 Occurrences starting 03/17/2022 until 03/17/2023 Antibody screen ANTIBODY SCREEN Blood Bank Routine High-risk in second trimester 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, single or unspecified fetus 03/17/2022 11:07 AM EDT [facility] Work Phone: Bacteria identified in Urine by Culture URINE CULTURE Microbiology Routine Encounter for supervision of normal in multigravida in first trimester Ordered: 01/02/2022 [facility] Work Phone: Comment on above: Ordered: 01/02/2022 Bacteria identified in Urine by Culture URINE CULTURE Microbiology Routine Encounter for supervision of high risk in first trimester, antepartum 08/02/2024 11:33 AM [facility] BACTERIAL VAGINOSIS NAAT BACTERI AL VAGINOSIS NAAT Lab Routine Supervision of high risk due to social problems, third trimester (HCC) 38 weeks gestation of (HCC) Vaginal discharge during in third trimester (HCC) History of herpes genitalis Ordered: 03/13/[address] [facility] Comment on above: Ordered: 03/13/2025 MYRA/TRICHOMONAS NAAT MYRA /TRICHOMONAS NAAT Lab Routine Supervision of high risk due to social problems, third trimester (HCC) 38 weeks gestation of (HCC) Vaginal discharge during in third trimester (HCC) History of herpes genitalis Ordered: 03/13/[address] [facility] Comment on above: Ordered: 03/13/2025 Chlamydia trachomatis+Neisseria gonorrhoeae DNA [Presence] in Unspecified specimen by YELENA with probe detection GC/CHLAMYDIA DNA DET Lab Routine Encounter for supervision of normal in multigravida in first trimester 01/02/2022 11:25 AM EDT [facility] Work Phone: Chlamydia trachomatis+Neisseria gonorrhoeae DNA [Presence] in Unspecified specimen by YELENA with probe detection GONORRHEA/CHLAMYDIA NAAT Lab Routine Encounter for supervision of high risk in first trimester, antepartum 08/02/2024 11:33 AM EST [facility] Chlamydia trachomatis+Neisseria gonorrhoeae DNA [Presence] in Unspecified specimen by YELENA with probe detection GONORRHEA/CHLAMYDIA NAAT Lab Routine Supervision of high risk due to social problems, third trimester (HCC) 36 weeks gestation of (HCC) 03/01/2025 11:25 AM EDT [facility] COVID & INFLUENZA A/ B & RSV PCR, ROUTINE COVID & INFLUENZA A/B & RSV PCR, ROUTINE Microbiology Routine Acute cough 07/05/2024 11:24 AM EDT [facility] Work Phone: End: 11-22-2025 ECG COMPLETE ECG COMPLETE ECG Routine Hx of intravenous drug use, in remission 1 Occurrences starting 11/22/2024 until 11/22/2025 [facility] Work Phone: Comment on above: 1 Occurrences starti ng 11/22/2024 until 11/22/2025 NEXPLANON REMOVAL NEXPLANON LAISHA LUISANA Procedures Routine Nexplanon insertion Ordered: 01/08/2023 [facility] Work Phone: Comment on above: Ordered: 01/08/2023 NUCHAL TRANSLUCENCY WHI NUCHAL T RANSLUCENCY WHI Anc Imaging Routine Encounter for supervision of normal in multigravida in first trimester Ordered: 01/20/2022 [facility] Work Phone: Comment on above: Ordered: 01/20/2022 OBSTETRIC ULTRASOUND WHI OBSTETR IC ULTRASOUND [facility] Anc Imaging Routine Uncertain dates, antepartum, first trimester Ordered: 01/02/2022 [facility] Work Phone: Comment on above: Ordered: 01/02/2022 OBSTETRIC ULTRASOUND WHI OBSTETR IC ULTRASOUND [facility] Anc Imaging Routine Supervision of other high risk pregnancies, first trimester Encounter for screening of mother Ordered: 02/17/2022 [facility] Work Phone: Comment on above: Ordered: 02/17/2022 End: 01-31-2025 OBSTETRIC ULTRASOUND WHI OBSTETRIC ULTRASOUND [facility] Anc Imaging Routine Maternal care for isoimmunization, second trimester, single gestation Once per week for 10 Occurrences starting 11/22/2024 until 01/31/2025 [facility] [facility] Comment on above: Once per week for 10 Occurrences starting 11/22/2024 until 01/31/2025 End: 05-06-2025 OBSTETRIC ULTRASOUND WHI OBSTETRIC ULTRASOUND WHI Anc Imaging Routine Maternal care for isoimmunization, second trimester, single gestation Supervision of high risk in second trimester Every other week for 10 Occurrences starting 11/07/2024 until 05/06/2025, 3 completed [facility] Work Phone: Comment on above: Every other week for 10 Occurrences starting 11/07/2024 until 05/06/2025, 3 completed PAP FLUID CERVICAL SCREENING PAP FLUID CERVICAL SCREENING Lab Routine Encounter for screening for malignant neoplasm of cervix 01/02/2022 1:52 PM EDT [facility] Work Phone: Patient Education [facility] Work Phone: Patient referral [facility] Work Phone: ROUTINE, GR OUP B STREPTOCOCCUS BY PCR ROUTINE, GROUP B STREPTOCOCCUS BY PCR Microbiology Routine Supervision of high risk due to social problems, third trimester (HCC) 36 weeks gestation of (HCC) 03/01/2025 11:25 AM [employer] [facility] Work Phone: T VAGINALIS AMPLIFICATION T VAGI NALIS AMPLIFICATION Lab Routine Encounter for screening for malignant neoplasm of cervix Ordered: 01/02/2022 [facility] Work Phone: Comment on above: Ordered: 01/02/2022 T VAGINALIS AMPLIFICATION T VAGI NALIS AMPLIFICATION Lab Routine Encounter for supervision of normal in multigravida in first trimester Uncertain dates, antepartum, first trimester Gonorrhea affecting in first trimester 01/20/2022 2:12 PM [employer]en[employer]T [facility] [employer] Work Phone: TOX SCREEN ROUT UR TOX SCREEN RO UT UR Lab Routine 13 weeks gestation of Drug use disorder 02/17/2022 11:40 AM [employer] [facility] Work Phone: TRICHOMONAS VAGINALI S NAAT TRICHOMONAS VAGINALIS NAAT Lab Routine History of trichomoniasis 08/02/2024 11:33 AM EST [facility] TRICHOMONAS VAGINALI S NAAT TRICHOMONAS VAGINALIS NAAT Lab Routine Supervision of high risk due to social problems, third trimester (HCC) 36 weeks gestation of (HCC) 03/01/2025 11:25 AM EDT [facility] URINE OB DIP B/O URINE OB DIP B/ O Lab Routine Screen for STD (sexually transmitted disease) 13 weeks gestation of Ordered: 02/17/2022 [facility] Work Phone: Comment on above: Ordered: 02/17/2022 URINE OB DIP B/O URINE OB DIP B/ O Lab Routine 31 weeks gestation of High-risk in third trimester 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, single or unspecified fetus Ordered: 06/26/2022 [facility] Work Phone: Comment on above: Ordered: 06/26/2022 URINE OB DIP B/O URINE OB DIP B/ O Lab Routine Supervision of high risk due to social problems, third trimester (HCC) 32 weeks gestation of (HCC) 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, single or unspecified fetus (HCC) Ordered: 01/31/2025 [facility] Work Phone: Comment on above: Ordered: 01/31/2025 URINE OB DIP B/O URINE OB DIP B/ O Lab Routine Supervision of high risk due to social problems, third trimester (HCC) 38 weeks gestation of (HCC) Ordered: 03/13/2025 [facility] Work Phone: Comment on above: Ordered: 03/13/2025 End: 07-10-2023 US MATERNAL LVL2 US MATERNAL LVL2 Radiology Routine 29 weeks gestation of Supervision of high risk in third trimester 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, single or unspecified fetus 1 Occurrences starting 06/10/2022 until 07/10/2023 [facility] Work Phone: Comment on above: 1 Occurrences starti ng 06/10/2022 until 07/10/2023 [facility] Immunizations Immunization Date Immunization Notes Care Provider Susana monaco 01-03-2025 tetanus toxoid, redu denver diphtheria toxoid, and acellular pertussis vaccine, adsorbed Hank Boss MD Work Phone: [facility] 05-25-2022 tetanus toxoid, redu denver diphtheria toxoid, and acellular pertussis vaccine, adsorbed Kayla Robb MD Work Phone: [facility] 10-31-2013 tetanus toxoid, redu denver diphtheria toxoid, and acellular pertussis vaccine, adsorbed [facility] Work Phone: 05-27-2012 influenza virus vaccine, live, attenuated, for intranasal use Kayla Robb MD Work Phone: [facility] Work Phone: 05-27-2012 influenza virus vaccine, unspecified formulation [facility] Work Phone: [facility] Payers Date Payer Category Payer Unknown [id number] 2022 Unknown [id number] 2021 Medicaid [employer] [employer] [place] [employer] [id number] 2021-[facility] [phone] [place] [id number] Medicaid [id number] 2021 Medicaid [id number] 2017 Self-pay Unknown [id number] Unknown [id number] Unknown [id number] Unknown [id number] Social History Date Type Detail Facility Start: 04-29-2016 End: 07-27-2024 Tobacco smoking status NHIS Smokes tobacco daily [facility] History of tobacco use Cigarette Smoker [facility] Start: 04-29-2016 End: 02-10-2023 Cigarettes smoked current (pack per day) - Reported 0.[address] [facility] Work Phone: Start: 04-29-2016 End: 07-27-2024 Tobacco use and exposure Smokeless tobacco non-user [facility] Start: 07-27-2019 End: 03-13-2025 Alcohol intake Current non-drinker of alcohol (finding) [facility] Start: 1995 Sex Assigned At Not on file [facility] Start: 12-09-2021 End: 07-21-2022 Exposure to SARS-CoV-2 (event) Not sure [facility] Start: 12-23-2021 End: 08-06-2022 Tobacco smoking status NHIS Unknown if ever smoked [facility] Work Phone: Start: 02-02-2015 None [facility] Work Phone: Start: 02-02-2015 Cigarettes [facility] Work Phone: Start: 1995 Sex Assigned At Female W [facility] Work Phone: Start: 11-30-[address] [facility] Start: 09-09-2022 End: 07-05-2024 Tobacco smoking status NHIS Ex-smoker [facility] History of tobacco use Current smoker [facility] Start: 10-14-2022 End: 02-10-2023 Tobacco use panel [facility] Work Phone: National Score (1-10 0), lower number is lower risk [address] [facility] Work Phone: The thought of harmi ng myself has occurred to me Never [facility] Start: 07-27-2024 Education [address] [facility] Goals Date Patient Goal Desired Activity /State Personal health goal Functional Status Date Assessment Result Facility 04-23-2016 Are you deaf, or do you have serious difficulty hearing No 04/23/2016 11:00 AM EDT Vangie Castro RN No [facility] 04-23-2016 Are you blind, or do you have serious difficulty seeing, even when wearing glasses No 04/23/2016 11:00 AM EDT Vangie Castro RN No [facility] 04-23-2016 Do you have serious difficulty walking or climbing stairs No 04/23/2016 11:00 AM EDT Vangie aCstro RN No [facility] 04-23-2016 Do you have difficul ty dressing or bathing No 04/23/2016 11:00 AM EDT Vangie Castro RN No [facility] 04-23-2016 Because of a physica l, mental, or emotional condition, do you have difficulty doing errands alone such as visiting a physician's office or shopping No 04/23/2016 11:00 AM EDT Vangie Castro RN No [facility] Mental Status Date Assessment Result Facility 04-23-2016 Because of a physica l, mental, or emotional condition, do you have serious difficulty concentrating, remembering, or making decisions No 04/23/2016 11:00 AM EDT Vangie Castro RN No [facility] Clinical Notes 01-14-2016 to 03-16-2025 Telephone Encounter - Ynes Jones RN - 03/16/2025 12:14 PM EDTTelephone Encounter - Ynes Jones RN - 03/16/2025 12:14 PM EDTTelephone Encounter - Hussein Fields RN - 03/15/2025 3:35 PM EDT Note Date & Type Note Facility 03-16-2025 Telephone encounter Note Patient notified. Ynes Jones RN [facility] 03-16-2025 Miscellaneous Notes Patient notified. Ynes Jones RN Ok to monitor at this time. If bright red vaginal bleeding, LOF or contractions to go to L&D or check back later today if needs added. Thanks, Lorena Sharma APRN.CNM Patient called for an update. Please advise. Lachelle Bean RN 38w4d Patient called with c/o spotting in her underwear today. Rust colored. Patient +BV and +yeast on 03/13. She started the Flagyl, but not the Diflucan yet. No spotting noted while wiping until patient was on the phone with nurse and checked again. Now light pink when she wipes. No pain or cramping. Having some pelvic pressure. No LOF. Good FM. Patient had cervical exam on 03/13. No intercourse within last 24-48 hours. Patient asking if she should go to L&D. No available appointments. Please advise. Lachelle Bean RN documented in this encounter [facility] 03-16-2025 Telephone encounter Note Ok to monitor at this time. If bright red vaginal bleeding, LOF or contractions to go to L&D or check back later today if needs added. Thanks, Lorena Sharma APRN.CNM [facility] Work Phone: 03-16-2025 Telephone encounter Note Patient called for an update. Please advise. Lachelle Bean RN [facility] 03-16-2025 Telephone encounter Note 38w4d Patient called with c/o spotting in her underwear today. Rust colored. Patient +BV and +yeast on 03/13. She started the Flagyl, but not the Diflucan yet. No spotting noted while wiping until patient was on the phone with nurse and checked again. Now light pink when she wipes. No pain or cramping. Having some pelvic pressure. No LOF. Good FM. Patient had cervical exam on 03/13. No intercourse within last 24-48 hours. Patient asking if she should go to L&D. No available appointments. Please advise. Lachelle Bean RN [facility] 03-15-2025 Telephone encounter Note MyChart message sent to patient per request. Hussein Fields RN [facility] 03-15-2025 Miscellaneous Notes MyChart message sent to patient per request. Hussein Fields RN yes,appropriate. Kayla Robb MD Ob patient is 38w3d is scheduled for IOL on 03/19/2025. Called stating that she had + BV & yeast cultures and that Monistat was sent to her pharmacy for yeast infection. Patient asking if she can have a pill for yeast since IOL is scheduled for Wednesday. Patient requesting a mychart message response. documented in this encounter [facility] 03-15-2025 Telephone encounter Note yes,appropriate. Kayla Robb MD [facility] 03-15-2025 Telephone encounter Note Ob patient is 38w3d is scheduled for IOL on 03/19/2025. Called stating that she had + BV & yeast cultures and that Monistat was sent to her pharmacy for yeast infection. Patient asking if she can have a pill for yeast since IOL is scheduled for Wednesday. Patient requesting a [employer] message response. [facility] 03-13-2025 Note Addended by: KAYLA ROBB on: 03/13/2025 04:03 PM Modules accepted: Orders [facility] 03-13-2025 Miscellaneous Notes Addended by: KAYLA ROBB on: 03/13/2025 04:03 PM Modules accepted: Orders Addended by: SUIM BUCKNER on: 03/13/2025 03:40 PM Modules accepted: Orders RR- VB No. LOF some vaginal discharge, some pruritus, no new sexual partners, CTXS No. Movement: present. Other c/o: lots of pressure Medication list reviewed. SENSITIVE EXAM: The sensitive examination was discussed with the Patient or Patient's Authorized Gerontology Aide. As applicable, any other physician, advance practice provider, medical student, or other health professional student that will be observing or involved in the sensitive examination for educational or training purposes was discussed with the Patient or Authorized Gerontology Aide. The Patient or Authorized Gerontology Aide has agreed to proceed with the sensitive examination. (Sensitive examination includes inspection and/or palpation of the breasts, pelvis, prostate and anorectal regions). Physical Exam See Flow Sheet Abd: soft, nontender, gravid : external genitalia: normal, vagina: pink, ruggated, discharge: yellow, mucous, and blood: absent, cervix: smooth and nopnfriable Ext: edema: 1+ A/P 38w1d Estimated Date of Delivery: 03/26/25 Assessment & Plan Supervision of high risk due to social problems, third trimester ([facility]) Orders: URINE OB DIP B/O 38 weeks gestation of ([facility]) Orders: URINE OB DIP B/O Vaginal discharge during in third trimester ([facility]) History of herpes genitalis no evidence of SROM, head ballots on cervical exam kick counts return prn plan induction 39 weeks Gc/CT/Trich done today hsv- cont. prophylaxis, no outbreak noted today Amniotic Fluid Test 03/13/2025 3:19 PM Fern: neg ; Nitrazine: neg (pH less than 7) Fern Reference Range: Negative for amniotic fluid Nitrazine Reference Range: Normal vaginal pH is acidic (below 7.0) with pH above 7.0 (basic) indicating the presence of amniotic fluid. Lab Address: Ob/gynecology [address] [facility] [address] Dept: [phone] Provider: MD Kayla Bejarano M.D. documented in this encounter [facility] 03-13-2025 Note Addended by: Michael BUCKNER on: 03/13/2025 03:40 PM Modules accepted: Orders [facility] 03-13-2025 Progress note Formatting of t his note might be different from the original. RR- VB No. LOF some vaginal discharge, some pruritus, no new sexual partners, CTXS No. Movement: present. Other c/o: lots of pressure Medication list reviewed. SENSITIVE EXAM: The sensitive examination was discussed with the Patient or Patient's Authorized Gerontology Aide. As applicable, any other physician, advance practice provider, medical student, or other health professional student that will be observing or involved in the sensitive examination for educational or training purposes was discussed with the Patient or Authorized Gerontology Aide. The Patient or Authorized Gerontology Aide has agreed to proceed with the sensitive examination. (Sensitive examination includes inspection and/or palpation of the breasts, pelvis, prostate and anorectal regions). Physical Exam See Flow Sheet Abd: soft, nontender, gravid : external genitalia: normal, vagina: pink, ruggated, discharge: yellow, mucous, and blood: absent, cervix: smooth and nopnfriable Ext: edema: 1+ A/P 38w1d Estimated Date of Delivery: 03/26/25 Assessment & Plan Supervision of high risk due to social problems, third trimester ([facility]) Orders: URINE OB DIP B/O 38 weeks gestation of ([facility]) Orders: URINE OB DIP B/O Vaginal discharge during in third trimester ([facility]) History of herpes genitalis no evidence of SROM, head ballots on cervical exam kick counts return prn plan induction 39 weeks Gc/CT/Trich done today hsv- cont. prophylaxis, no outbreak noted today Amniotic Fluid Test 03/13/2025 3:19 PM Fern: neg ; Nitrazine: neg (pH less than 7) Fern Reference Range: Negative for amniotic fluid Nitrazine Reference Range: Normal vaginal pH is acidic (below 7.0) with pH above 7.0 (basic) indicating the presence of amniotic fluid. Lab Address: Ob/gynecology [address] [place] [id number] Dept: [phone] Provider: MD Kayla Bejarano M.D. [facility] 03-13-2025 Instructions Sumi Buckner MA - 03/13/2025 2:54 PM EDT SEQUENTIAL SCREENINGS The [facility] offers sequential screenings for women who are interested in screenings for chromosomal abnormalities and certain defects during a . The sequential screen combines ultrasound and blood tests to determine the risk of chromosomal abnormalities, including Down's Syndrome (Trisomy 21) and Trisomy 18, as well as open neural tube defects including spina bifida. Ultrasound examination is performed between 11 weeks and 13 weeks gestational age. Blood tests are drawn after the ultrasound and again later in the between 15 and 21 weeks gestational age. Please let your physician know if you are interested in this testing. It will require an appointment with our nitriles lab technician. This is not an ultrasound performed by a physician in our office during a routine visit. SIGNS AND SYMPTOMS OF LABOR 1. Contractions every 10 minutes or more often 2. Clear, pink, or brownish fluid (water) leaking from vagina 3. Feeling that baby is pushing down, pressure 4. Low, dull backache 5. Cramps that feel like a period 6. Cramps with or without diarrhea If you notice any of the above symptoms, contact our office at [phone] and ask to speak with a nurse. After hours, you can call doctors registry at [phone] OR call [facility] at [phone] and ask to have the doctor database administration manager paged. If you consider this an emergency, dial 8-9-7 or go to your nearest emergency department. NEED HELP? Are you dealing with a violent or abusive relationship? Are you a victim of rape or sexual assult? Call [facility] [place] ([place]) 24 hour Crisis Hotline: 839.556.7090 or 854-367-4752. MANUAL Your Guide to a Healthy manual is now on-line. Visit [email or web address] [facility] to download your free copy documented in this encounter [facility] 03-07-2025 Progress note Formatting of t his note might be different from the original. RR- VB No. LOF No. CTXS irreg. Movement: present. Other c/o: uncomfortable, hard to sleep. Lots of pressure Medication list reviewed. SENSITIVE EXAM: The sensitive examination was discussed with the Patient or Patient's Authorized Gerontology Aide. As applicable, any other physician, advance practice provider, medical student, or other health professional student that will be observing or involved in the sensitive examination for educational or training purposes was discussed with the Patient or Authorized Gerontology Aide. The Patient or Authorized Gerontology Aide has agreed to proceed with the sensitive examination. (Sensitive examination includes inspection and/or palpation of the breasts, pelvis, prostate and anorectal regions). 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 [facility] 03-07-2025 Miscellaneous Notes RR- VB No. LOF No. CTXS irreg. Movement: present. Other c/o: uncomfortable, hard to sleep. Lots of pressure Medication list reviewed. SENSITIVE EXAM: The sensitive examination was discussed with the Patient or Patient's Authorized Gerontology Aide. As applicable, any other physician, advance practice provider, medical student, or other health professional student that will be observing or involved in the sensitive examination for educational or training purposes was discussed with the Patient or Authorized Gerontology Aide. The Patient or Authorized Gerontology Aide has agreed to proceed with the sensitive examination. (Sensitive examination includes inspection and/or palpation of the breasts, pelvis, prostate and anorectal regions). 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 documented in this encounter [facility] 03-07-2025 Instructions Sumi Buckner MA - 03/07/2025 10:57 AM EDT SEQUENTIAL SCREENINGS The [facility] offers sequential screenings for women who are interested in screenings for chromosomal abnormalities and certain defects during a . The sequential screen combines ultrasound and blood tests to determine the risk of chromosomal abnormalities, including Down's Syndrome (Trisomy 21) and Trisomy 18, as well as open neural tube defects including spina bifida. Ultrasound examination is performed between 11 weeks and 13 weeks gestational age. Blood tests are drawn after the ultrasound and again later in the between 15 and 21 weeks gestational age. Please let your physician know if you are interested in this testing. It will require an appointment with our nitriles lab technician. This is not an ultrasound performed by a physician in our office during a routine visit. SIGNS AND SYMPTOMS OF LABOR 1. Contractions every 10 minutes or more often 2. Clear, pink, or brownish fluid (water) leaking from vagina 3. Feeling that baby is pushing down, pressure 4. Low, dull backache 5. Cramps that feel like a period 6. Cramps with or without diarrhea If you notice any of the above symptoms, contact our office at [phone] and ask to speak with a nurse. After hours, you can call doctors registry at [phone] OR call [facility] at [phone] and ask to have the doctor database administration manager paged. If you consider this an emergency, dial 9-6-5 or go to your nearest emergency department. NEED HELP? Are you dealing with a violent or abusive relationship? Are you a victim of rape or sexual assult? Call [facility] [place] ([facility] 24 hour Crisis Hotline: 365.211.5385 or 102-804-7721. MANUAL Your Guide to a Healthy manual is now on-line. Visit [email or web address] [employer]ago to download your free copy documented in this encounter [facility] 03-01-2025 Progress note Formatting of t his note might be different from the original. RR- VB No. LOF No. CTXS few BH, less since not working. . Movement: present. Other c/o: denies HSV symtpoms Medication list reviewed. SENSITIVE EXAM: The sensitive examination was discussed with the Patient or Patient's Authorized Gerontology Aide. As applicable, any other physician, advance practice provider, medical student, or other health professional student that will be observing or involved in the sensitive examination for educational or training purposes was discussed with the Patient or Authorized Gerontology Aide. The Patient or Authorized Gerontology Aide has agreed to proceed with the sensitive examination. (Sensitive examination includes inspection and/or palpation of the breasts, pelvis, prostate and anorectal regions). Physical Exam See Flow Sheet Abd: soft, nontender, gravid : external genitalia: normal, vagina: discharge: clear, yellow Ext: edema: 1+ A/P 36w3d Estimated Date of Delivery: 03/26/25 Assessment & Plan Supervision of high risk due to social problems, third trimester (HCC) Orders: ROUTINE, GROUP B STREPTOCOCCUS BY PCR GONORRHEA/CHLAMYDIA NAAT TRICHOMONAS VAGINALIS NAAT URINE OB DIP B/O 36 weeks gestation of (HCC) Orders: ROUTINE, GROUP B STREPTOCOCCUS BY PCR GONORRHEA/CHLAMYDIA NAAT TRICHOMONAS VAGINALIS NAAT URINE OB DIP B/O History of herpes genitalis prophylaxis ordered. PArtner does not know, doesn't want discussed in front of him Desires 39 week induction GC/CT today GBS done Kayla Robb M.D. T [facility] 03-01-2025 Miscellaneous Notes RR- VB No. LOF No. CTXS few BH, less since not working. . Movement: present. Other c/o: denies HSV symtpoms Medication list reviewed. SENSITIVE EXAM: The sensitive examination was discussed with the Patient or Patient's Authorized Gerontology Aide. As applicable, any other physician, advance practice provider, medical student, or other health professional student that will be observing or involved in the sensitive examination for educational or training purposes was discussed with the Patient or Authorized Gerontology Aide. The Patient or Authorized Gerontology Aide has agreed to proceed with the sensitive examination. (Sensitive examination includes inspection and/or palpation of the breasts, pelvis, prostate and anorectal regions). Physical Exam See Flow Sheet Abd: soft, nontender, gravid : external genitalia: normal, vagina: discharge: clear, yellow Ext: edema: 1+ A/P 36w3d Estimated Date of Delivery: 03/26/25 Assessment & Plan Supervision of high risk due to social problems, third trimester (HCC) Orders: ROUTINE, GROUP B STREPTOCOCCUS BY PCR GONORRHEA/CHLAMYDIA NAAT TRICHOMONAS VAGINALIS NAAT URINE OB DIP B/O 36 weeks gestation of (HCC) Orders: ROUTINE, GROUP B STREPTOCOCCUS BY PCR GONORRHEA/CHLAMYDIA NAAT TRICHOMONAS VAGINALIS NAAT URINE OB DIP B/O History of herpes genitalis prophylaxis ordered. PArtner does not know, doesn't want discussed in front of him Desires 39 week induction GC/CT today GBS done Kayla Robb M.D. documented in this encounter [facility] 03-01-2025 Instructions Sumi Buckner MA - 03/01/2025 11:08 AM EDT SEQUENTIAL SCREENINGS The [facility] offers sequential screenings for women who are interested in screenings for chromosomal abnormalities and certain defects during a . The sequential screen combines ultrasound and blood tests to determine the risk of chromosomal abnormalities, including Down's Syndrome (Trisomy 21) and Trisomy 18, as well as open neural tube defects including spina bifida. Ultrasound examination is performed between 11 weeks and 13 weeks gestational age. Blood tests are drawn after the ultrasound and again later in the between 15 and 21 weeks gestational age. Please let your physician know if you are interested in this testing. It will require an appointment with our nitriles lab technician. This is not an ultrasound performed by a physician in our office during a routine visit. SIGNS AND SYMPTOMS OF LABOR 1. Contractions every 10 minutes or more often 2. Clear, pink, or brownish fluid (water) leaking from vagina 3. Feeling that baby is pushing down, pressure 4. Low, dull backache 5. Cramps that feel like a period 6. Cramps with or without diarrhea If you notice any of the above symptoms, contact our office at [phone] and ask to speak with a nurse. After hours, you can call doctors registry at [phone] OR call [facility] at [phone] and ask to have the doctor database administration manager paged. If you consider this an emergency, dial 9-1-1 or go to your nearest emergency department. NEED HELP? Are you dealing with a violent or abusive relationship? Are you a victim of rape or sexual assult? Call [facility] ([place]) 24 hour Crisis Hotline: 702.189.6071 or 647-916-5379. MANUAL Your Guide to a Healthy manual is now on-line. Visit [email or web address] to download your free copy documented in this encounter [facility] 02-14-2025 Note Indication Evaluation of growth Anti-E isoimmunization Impression - Single, live, intrauterine . - presentation is cephalic. - The biometry is consistent with the assigned gestational dating. - The EFW is 2585 g, at the 67%. AC is at the 91%. - Amniotic fluid volume is normal amount with an MVP of 5.9 cm and SADIA of 20.6 cm. - The placenta is posterior, fundal. - No malformations visualized on a limited survey as detailed below. Recommendations Additional follow-up as clinically indicated. Maternal Assessment Height 163 cm Height (ft) 5 ft Height (in) 4 in Physical Exam Initial weight (lb) 169 lb Initial BMI 29.01 kg/m Maternal assessment other: 5 Para 3 REMOTE READ Method Transabdominal ultrasound examination [place] . Number of fetuses: 1 Dating LMP on: 06/19/2024 GA by LMP 34 w + 2 d CHANELL by LMP: 03/26/2025 GA by prior assessment 34 w + 2 d CHANELL by prior assessment: 03/26/2025 Ultrasound examination on: 02/14/2025 GA by U/S based upon: AC, BPD, Femur, HC GA by U/S 35 w + 0 d CHANELL by U/S: 03/21/2025 Assigned: based on stated CHANELL, selected on 12/20/2024 Assigned GA 34 w + 2 d Assigned CHANELL: 03/26/2025 General Evaluation Cardiac activity present. FHR 146 bpm. movements: present. Presentation: cephalic Placenta: Placental site: posterior, fundal Umbilical cord: Cord vessels: 3 vessel cord Amniotic fluid: Amount of AF: normal amount. MVP 5.9 cm. SADIA 20.6 cm. Q1 5.5 cm, Q2 5.7 cm, Q3 3.5 cm, Q4 5.9 cm Growth Overview Exam date GA BPD (mm) HC (mm) AC (mm) FL (mm) HL (mm) EFW (g) 11/08/2024 20w 2d 48.3 63% 184.9 67% 155.8 60% 32.4 58% 31.7 64% 358 56% 12/06/2024 24w 2d 61.1 64% 232 70% 203 61% 42.4 48% 712 54% 01/17/2025 30w 2d 79.8 87% 291.4 71% 267.2 62% 56.8 49% 1625 52% 02/14/2025 34w 2d 89 90% 320.7 68% 319.7 91% 63.8 28% 2585 67% Biometry Standard BPD 89.0 mm 36w 0d 90% Hadlock OFD 110.5 mm 33w 2d 44% Nicolaides HC 320.7 mm 35w 2d 68% Mariel AC 319.7 mm 35w 6d 91% Hadlock Femur 63.8 mm 32w 5d 28% Mariel EFW 2,585 g 35w 0d 67% Hadlock EFW (lb) 5 lb EFW (oz) 11 oz EFW by: Hadlock (HC-AC-FL) Extended Technical Delivery Manager 3.8 mm Extremities / Bony Struc FL / HC 0.20 Other Structures FHR 146 bpm Anatomy Lateral ventricles: normal Cavum septi pellucidi: normal Cerebellum: normal Cisterna magna: normal 4-chamber view: normal RVOT view: normal LVOT view: normal 3-vessel view: normal Heart / Thorax Situs: situs solitus (normal) Diaphragm: normal Stomach: normal Kidneys: normal Bladder: normal sex: male Wants to know sex: yes Performed By: Hussein Perkins RDMS, RVT Read By: Mayi Walton M.D. [facility] 02-14-2025 Progress note Formatting of t his note might be different from the original. S: Calin Graf is a 29 year old female who presents at 03/26/2025, by Last Menstrual Period for a routine visit. Denies headache, visual changes, chest pain, shortness of breath, vaginal bleeding, leakage of fluid, or dysuria. Feeling well, no complaints. Good movement, No contractions O: See flow sheet Gen: No apparent distress Abd: Gravid, nontender EFW 67% SADIA 20 VTX on US ASSESSMENT/PLAN: 1. Supervision of high risk due to social problems, third trimester ([facility]) - ICD9: V23.89, ICD10: O09.73 (primary diagnosis) - URINE OB DIP B/O 2. 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 34 weeks gestation of ([facility]) - ICD9: V22.2, ICD10: Z3A.34 PTL precautions - URINE OB DIP B/O Lachelle Kramer MD [facility] 02-14-2025 Miscellaneous Notes S: Calin Graf is a 29 year old female who presents at 03/26/2025, by Last Menstrual Period for a routine visit. Denies headache, visual changes, chest pain, shortness of breath, vaginal bleeding, leakage of fluid, or dysuria. Feeling well, no complaints. Good movement, No contractions O: See flow sheet Gen: No apparent distress Abd: Gravid, nontender EFW 67% SADIA 20 VTX on US ASSESSMENT/PLAN: 1. Supervision of high risk due to social problems, third trimester ([facility]) - ICD9: V23.89, ICD10: O09.73 (primary diagnosis) - URINE OB DIP B/O 2. 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 34 weeks gestation of ([facility]) - ICD9: V22.2, ICD10: Z3A.34 PTL precautions - URINE OB DIP B/O Lachelle Kramer MD documented in this encounter [facility] 02-14-2025 Instructions Sarahi Chen MA - 02/14/2025 1:16 PM EDT SEQUENTIAL SCREENINGS The [facility] offers sequential screenings for women who are interested in screenings for chromosomal abnormalities and certain defects during a . The sequential screen combines ultrasound and blood tests to determine the risk of chromosomal abnormalities, including Down's Syndrome (Trisomy 21) and Trisomy 18, as well as open neural tube defects including spina bifida. Ultrasound examination is performed between 11 weeks and 13 weeks gestational age. Blood tests are drawn after the ultrasound and again later in the between 15 and 21 weeks gestational age. Please let your physician know if you are interested in this testing. It will require an appointment with our nitriles lab technician. This is not an ultrasound performed by a physician in our office during a routine visit. SIGNS AND SYMPTOMS OF LABOR 1. Contractions every 10 minutes or more often 2. Clear, pink, or brownish fluid (water) leaking from vagina 3. Feeling that baby is pushing down, pressure 4. Low, dull backache 5. Cramps that feel like a period 6. Cramps with or without diarrhea If you notice any of the above symptoms, contact our office at [phone] and ask to speak with a nurse. After hours, you can call doctors registry at [phone] OR call [facility] at [phone] and ask to have the doctor database administration manager paged. If you consider this an emergency, dial 9-1-2 or go to your nearest emergency department. NEED HELP? Are you dealing with a violent or abusive relationship? Are you a victim of rape or sexual assult? Call [facility] ([place]) 24 hour Crisis Hotline: 119.437.6031 or 570-816-5180. MANUAL Your Guide to a Healthy manual is now on-line. Visit [email or web address] [email or web address] to download your free copy documented in this encounter [facility] 01-31-2025 Progress note Formatting of t his note might be different from the original. RR- VB No. LOF No. CTXS some cramping. Movement: present. Other c/o: no AGGARWAL or edema Medication list reviewed. SENSITIVE EXAM: Sensitive exam not performed. 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 cont. growth scans, no other testing needed Orders: URINE OB DIP B/O f/u in 2 weeks or prn kick counts Kayla Robb M.D. [facility] 01-31-2025 Miscellaneous Notes RR- VB No. LOF No. CTXS some cramping. Movement: present. Other c/o: no AGGARWAL or edema Medication list reviewed. SENSITIVE EXAM: Sensitive exam not performed. 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 cont. growth scans, no other testing needed Orders: URINE OB DIP B/O f/u in 2 weeks or prn kick counts Kayla Robb M.D. documented in this encounter [facility] 01-31-2025 Instructions Sumi Buckner MA - 01/31/2025 11:31 AM EDT SEQUENTIAL SCREENINGS The [facility] offers sequential screenings for women who are interested in screenings for chromosomal abnormalities and certain defects during a . The sequential screen combines ultrasound and blood tests to determine the risk of chromosomal abnormalities, including Down's Syndrome (Trisomy 21) and Trisomy 18, as well as open neural tube defects including spina bifida. Ultrasound examination is performed between 11 weeks and 13 weeks gestational age. Blood tests are drawn after the ultrasound and again later in the between 15 and 21 weeks gestational age. Please let your physician know if you are interested in this testing. It will require an appointment with our nitriles lab technician. This is not an ultrasound performed by a physician in our office during a routine visit. SIGNS AND SYMPTOMS OF LABOR 1. Contractions every 10 minutes or more often 2. Clear, pink, or brownish fluid (water) leaking from vagina 3. Feeling that baby is pushing down, pressure 4. Low, dull backache 5. Cramps that feel like a period 6. Cramps with or without diarrhea If you notice any of the above symptoms, contact our office at [phone] and ask to speak with a nurse. After hours, you can call doctors registry at [phone] OR call [facility] at [phone] and ask to have the doctor database administration manager paged. If you consider this an emergency, dial 8-5-9 or go to your nearest emergency department. NEED HELP? Are you dealing with a violent or abusive relationship? Are you a victim of rape or sexual assult? Call [facility] ([place]) 24 hour Crisis Hotline: 555.648.5727 or 123-922-6334. MANUAL Your Guide to a Healthy manual is now on-line. Visit [email or web address] to download your free copy documented in this encounter [facility] 01-17-2025 Note Indication Evaluation of growth. Discrepancy between uterine size and clinical dates Impression REMOTE READ - Single, live, intrauterine . - presentation is cephalic. - The biometry is consistent with the assigned gestational dating. - The EFW is 1625 g, at the 52%. AC is at the 62%. - The amniotic fluid volume is normal amount with an MVP of 4 cm and an SADIA of 14.6 cm. - The placenta is posterior, fundal. - No malformations visualized on a limited survey as detailed below. Recommendations Additional follow-up as clinically indicated. Maternal Assessment Height 163 cm Height (ft) 5 ft Height (in) 4 in Physical Exam Initial weight (lb) 169 lb Initial BMI 29.01 kg/m Method Transabdominal ultrasound examination [place] . Number of fetuses: 1 Dating LMP on: 06/19/2024 GA by LMP 30 w + 2 d CHANELL by LMP: 03/26/2025 GA by prior assessment 30 w + 2 d CHANELL by prior assessment: 03/26/2025 Ultrasound examination on: 01/17/2025 GA by U/S based upon: AC, BPD, Femur, HC GA by U/S 31 w + 0 d CHANELL by U/S: 03/21/2025 Assigned: based on stated CHANELL, selected on 12/20/2024 Assigned GA 30 w + 2 d Assigned CHANELL: 03/26/2025 General Evaluation Cardiac activity present. FHR 133 bpm. movements: present. Presentation: cephalic Placenta: Placental site: posterior, fundal Umbilical cord: Cord vessels: 3 vessel cord. Insertion site: normal insertion Amniotic fluid: Amount of AF: normal amount. MVP 4.0 cm. SADIA 14.6 cm. Q1 3.3 cm, Q2 3.9 cm, Q3 4.0 cm, Q4 3.3 cm Growth Overview Exam date GA BPD (mm) HC (mm) AC (mm) FL (mm) HL (mm) EFW (g) 11/08/2024 20w 2d 48.3 63% 184.9 67% 155.8 60% 32.4 58% 31.7 64% 358 56% 12/06/2024 24w 2d 61.1 64% 232 70% 203 61% 42.4 48% 712 54% 01/17/2025 30w 2d 79.8 87% 291.4 71% 267.2 62% 56.8 49% 1625 52% Biometry Standard BPD 79.8 mm 32w 0d 87% Hadlock OFD 103.1 mm 30w 3d 67% Nicolaides HC 291.4 mm 31w 2d 71% Mariel AC 267.2 mm 30w 6d 62% Hadlock Femur 56.8 mm 29w 6d 49% Mariel EFW 1,625 g 30w 2d 52% Hadlock EFW (lb) 3 lb EFW (oz) 9 oz EFW by: Hadlock (HC-AC-FL) Extended Technical Delivery Manager 3.0 mm Extremities / Bony Struc FL / HC 0.19 Other Structures FHR 133 bpm Anatomy Lateral ventricles: normal Cavum septi pellucidi: normal Cerebellum: normal Cisterna magna: normal 4-chamber view: normal RVOT view: normal LVOT view: normal 3-vessel view: normal Heart / Thorax Situs: situs solitus (normal) Diaphragm: normal Stomach: normal Kidneys: normal Bladder: normal sex: male Wants to know sex: yes Performed By: Mara Combs RDMS Read By: Stephani Cano M.D. [facility] 01-17-2025 Progress note Formatting of t his note might be different from the original. RR- VB No. LOF No. CTXS No. Movement: present. Other c/o: No. Medication list reviewed. SENSITIVE EXAM: Sensitive exam not performed. Physical Exam See Flow Sheet Abd: soft, nontender, gravid Ext: edema: Trace A/P 30w2d Estimated Date of Delivery: 03/26/25 Assessment & Plan Supervision of high risk due to social problems, third trimester (HCC) anit E postiive, baby NIPT neg. Growth scans for monitoring 30 weeks gestation of ([facility]) US results pending from today kick counts f/u in 2 weeks or prn Kayla Robb M.D. [facility] 01-17-2025 Miscellaneous Notes RR- VB No. LOF No. CTXS No. Movement: present. Other c/o: No. Medication list reviewed. SENSITIVE EXAM: Sensitive exam not performed. Physical Exam See Flow Sheet Abd: soft, nontender, gravid Ext: edema: Trace A/P 30w2d Estimated Date of Delivery: 03/26/25 Assessment & Plan Supervision of high risk due to social problems, third trimester (HCC) anit E postiive, baby NIPT neg. Growth scans for monitoring 30 weeks gestation of (HCC) US results pending from today kick counts f/u in 2 weeks or prn Kayla Robb M.D. documented in this encounter [facility] 01-17-2025 Instructions Gustavo SarahiWILLIAMS velasco - 01/17/2025 1:18 PM EDT SEQUENTIAL SCREENINGS The [facility] offers sequential screenings for women who are interested in screenings for chromosomal abnormalities and certain defects during a . The sequential screen combines ultrasound and blood tests to determine the risk of chromosomal abnormalities, including Down's Syndrome (Trisomy 21) and Trisomy 18, as well as open neural tube defects including spina bifida. Ultrasound examination is performed between 11 weeks and 13 weeks gestational age. Blood tests are drawn after the ultrasound and again later in the between 15 and 21 weeks gestational age. Please let your physician know if you are interested in this testing. It will require an appointment with our nitriles lab technician. This is not an ultrasound performed by a physician in our office during a routine visit. SIGNS AND SYMPTOMS OF LABOR 1. Contractions every 10 minutes or more often 2. Clear, pink, or brownish fluid (water) leaking from vagina 3. Feeling that baby is pushing down, pressure 4. Low, dull backache 5. Cramps that feel like a period 6. Cramps with or without diarrhea If you notice any of the above symptoms, contact our office at [phone] and ask to speak with a nurse. After hours, you can call doctors registry at [phone] OR call [facility] at [phone] and ask to have the doctor database administration manager paged. If you consider this an emergency, dial 9--1 or go to your nearest emergency department. NEED HELP? Are you dealing with a violent or abusive relationship? Are you a victim of rape or sexual assult? Call [facility] ([place]) 24 hour Crisis Hotline: 194.378.8115 or 337-370-8210. MANUAL Your Guide to a Healthy manual is now on-line. Visit [email or web address] [email or web address] to download your free copy documented in this encounter [facility] 01-04-2025 Telephone encounter Note 3rd risk assessment form submitted 01/04/25 Shoshana Guido RN [facility] 01-04-2025 Miscellaneous Notes 3rd risk assessment form submitted 01/04/25 Shoshana Guido RN documented in this encounter [facility] 01-03-2025 Evaluation + Plan note Associated Problem(s): 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) NIPT fetus is E antigen negative so only Growth us no need for dopplers [id number] 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 Denies vaginal Bleeding, Leaking fluid, or regular Contractions. Pt reports good movement Physical Exam: Gen: female in no apparent distress Abd: soft, Gravid. Non tender to palpation. See flow sheet @ 28 weeks Assessment & Plan Supervision of high risk due to social problems, third trimester (HCC) 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, single or unspecified fetus (HCC) NIPT fetus is E antigen negative so only Growth us no need for dopplers [id number] 28 weeks gestation of (HCC) Title 19 signed at last visit- understands tubal may not be performed at time of delivery but 5-6 weeks PP - LARC form signed and declined today - RTO 2 weeks - Never started ASA - Kick counts reviewed - Labs today Orders: TDAP VACCINE, AGE 7+ YR (ADACEL, BOOSTRIX) Need for vaccination Orders: TDAP VACCINE, AGE 7+ YR (ADACEL, BOOSTRIX) Hank Kohli MD documented in this encounter [facility] 01-03-2025 Evaluation + Plan note Associated Problem(s): Supervision of high risk due to social problems, third trimester (HCC) [facility] 01-03-2025 Progress note Formatting of t his note might be different from the original. DM-Pt doing well. Denies vaginal Bleeding, Leaking fluid, or regular Contractions. Pt reports good movement Physical Exam: Gen: female in no apparent distress Abd: soft, Gravid. Non tender to palpation. See flow sheet @ 28 weeks Assessment & Plan Supervision of high risk due to social problems, third trimester (HCC) 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, single or unspecified fetus (HCC) NIPT fetus is E antigen negative so only Growth us no need for dopplers [id number] 28 weeks gestation of (HCC) Title 19 signed at last visit- understands tubal may not be performed at time of delivery but 5-6 weeks PP - LARC form signed and declined today - RTO 2 weeks - Never started ASA - Kick counts reviewed - Labs today Orders: TDAP VACCINE, AGE 7+ YR (ADACEL, BOOSTRIX) Need for vaccination Orders: TDAP VACCINE, AGE 7+ YR (ADACEL, BOOSTRIX) Hank Kohli MD [facility] 01-03-2025 Note HNO ID: [id number] Author: LILIANA CROW MA Service: ? Author Type: Equine Vet Type: Progress Notes Filed: 01/03/2025 14:28 Note Text: Patient identified by name and date of . Calin Graf presents today for a vaccination of Tdap. Patient denies an allergy to latex: yes Patient denies a severe (life-threatening) allergy to a previous dose of Tdap, DTP, DTaP, DT or Td vaccine. Yes Patient denies history of epilepsy or neurological problems: Yes Patient is afebrile and denies being moderately or severely ill: Yes Patient denies history of Guillain-[place] Syndrome (a severe paralytic illness): Yes Tdap Adacel injection was given without incident. See immunizations for details of immunizations administered today. VIS sheet provided: Yes Provider Gera was present in office at time of injection. Liliana Crow MA [facility] 01-03-2025 History of Presen t illness Narrative Patient identified by name and date of . Calin Graf presents today for a vaccination of Tdap. Patient denies an allergy to latex: yes Patient denies a severe (life-threatening) allergy to a previous dose of Tdap, DTP, DTaP, DT or Td vaccine. Yes Patient denies history of epilepsy or neurological problems: Yes Patient is afebrile and denies being moderately or severely ill: Yes Patient denies history of Guillain-[place] Syndrome (a severe paralytic illness): Yes Tdap Adacel injection was given without incident. See immunizations for details of immunizations administered today. VIS sheet provided: Yes Provider Gera was present in office at time of injection. Liliana Crow MA documented in this encounter [facility] 01-01-2025 Telephone encounter Note 28-32 Week Follow Up Call with OB Navigator Estimated Date of Delivery: 03/26/25 Gestational age: 28w0d Call patient at [phone] Patient/caregiver answered: No Left voice message MyChart message sent LULU Jordan, RN OB Clinical Navigator [phone] [facility] 01-01-2025 Miscellaneous Notes 28-32 Week Follow Up Call with OB Navigator Estimated Date of Delivery: 03/26/25 Gestational age: 28w0d Call patient at [phone] Patient/caregiver answered: No Left voice message MyChart message sent LULU Jordan, RN OB Clinical Navigator [phone] documented in this encounter [facility] 12-20-2024 Note Indication Antibody E isoimmunization Impression 1. Single, live intrauterine 2. MCA-PSV is 1.14 MoM indicated no evidence of severe anemia Recommendations Additional follow-up as clinically indicated. Maternal Assessment Height 163 cm Height (ft) 5 ft Height (in) 4 in Physical Exam Initial weight (lb) 169 lb Initial BMI 29.01 kg/m Maternal assessment other: 5 Para 3 REMOTE READ Growth Overview Exam date GA BPD (mm) HC (mm) AC (mm) FL (mm) HL (mm) EFW (g) 11/08/2024 20w 2d 48.3 63% 184.9 67% 155.8 60% 32.4 58% 31.7 64% 358 56% 12/06/2024 24w 2d 61.1 64% 232 70% 203 61% 42.4 48% 712 54% Method Transabdominal ultrasound examination [place] . Number of fetuses: 1 Dating LMP on: 06/19/2024 GA by LMP 26 w + 2 d CHANELL by LMP: 03/26/2025 GA by prior assessment 26 w + 2 d CHANELL by prior assessment: 03/26/2025 Assigned: based on stated CHANELL, selected on 12/20/2024 Assigned GA 26 w + 2 d Assigned CHANELL: 03/26/2025 General Evaluation Cardiac activity present. FHR 151 bpm. movements: present. Presentation: cephalic Placenta: Placental site: posterior, fundal Umbilical cord: Cord vessels: 3 vessel cord Amniotic fluid: Amount of AF: normal amount. MVP 4.5 cm. SADIA 16.3 cm. Q1 3.9 cm, Q2 4.5 cm, Q3 3.9 cm, Q4 3.9 cm Anatomy Lateral ventricles: normal Cavum septi pellucidi: normal Cerebellum: normal Cisterna magna: normal 4-chamber view: normal RVOT view: normal LVOT view: normal 3-vessel view: normal Heart / Thorax Situs: situs solitus (normal) Diaphragm: normal Stomach: normal Kidneys: normal Bladder: normal sex: male Wants to know sex: yes Doppler Arterial MCA PI 3.06 MCA PS 39.02 cm/s MoM 1.14 Performed By: Hussein Perkins RDMS, RVT Read By: Stephani Cano M.D. [facility] 12-20-2024 Note HNO ID: [id number] Author: KAYLA ROBB MD Service: ? Author Type: Physician Type: Progress Notes Filed: 12/20/2024 14:01 Note Text: RR- VB No. LOF No. CTXS No. Movement: present. Other c/o: No. Medication list reviewed. SENSITIVE EXAM: Sensitive exam not performed. 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 She declines reversible options including LARC. She understands sterilization is permanent, irreversible, risks of failure, regret and ectopic. In addition she understands there are surgical risks as well. Her questions were answered to her satisfaction and consent was signed today, title 19 declines larc at delivery plans , will get pump Kayla Robb M.D. [facility] 12-20-2024 History of Presen t illness Narrative RR- VB No. LOF No. CTXS No. Movement: present. Other c/o: No. Medication list reviewed. SENSITIVE EXAM: Sensitive exam not performed. 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 She declines reversible options including LARC. She understands sterilization is permanent, irreversible, risks of failure, regret and ectopic. In addition she understands there are surgical risks as well. Her questions were answered to her satisfaction and consent was signed today, title 19 declines larc at delivery plans , will get pump Kayla Robb M.D. documented in this encounter [facility] 12-20-2024 Instructions Beckie Duque MA - 12/20/2024 1:16 PM EDT SEQUENTIAL SCREENINGS The [facility] offers sequential screenings for women who are interested in screenings for chromosomal abnormalities and certain defects during a . The sequential screen combines ultrasound and blood tests to determine the risk of chromosomal abnormalities, including Down's Syndrome (Trisomy 21) and Trisomy 18, as well as open neural tube defects including spina bifida. Ultrasound examination is performed between 11 weeks and 13 weeks gestational age. Blood tests are drawn after the ultrasound and again later in the between 15 and 21 weeks gestational age. Please let your physician know if you are interested in this testing. It will require an appointment with our nitriles lab technician. This is not an ultrasound performed by a physician in our office during a routine visit. SIGNS AND SYMPTOMS OF LABOR 1. Contractions every 10 minutes or more often 2. Clear, pink, or brownish fluid (water) leaking from vagina 3. Feeling that baby is pushing down, pressure 4. Low, dull backache 5. Cramps that feel like a period 6. Cramps with or without diarrhea If you notice any of the above symptoms, contact our office at [phone] and ask to speak with a nurse. After hours, you can call doctors registry at [phone] OR call [facility] at [phone] and ask to have the doctor database administration manager paged. If you consider this an emergency, dial [phone] or go to your nearest emergency department. NEED HELP? Are you dealing with a violent or abusive relationship? Are you a victim of rape or sexual assult? Call [facility] ([place]) 24 hour Crisis Hotline: 404.885.4615 or 629-755-0705. MANUAL Your Guide to a Healthy manual is now on-line. Visit [email or web address] to download your free copy documented in this encounter [facility] 12-07-2024 Telephone encounter Note 12/07/2024 MFM Pt called and identified. NIPT testing for E is negative. This means that the baby does not have E antigen and is not at risk from isoimmunization. Results discussed with pt, including the small risk that the test is incorrect. We discussed that, assuming the test is correct, she does not require MCA dopplers and could deliver at a hospital of her choice. Pt chooses to stop MCA dopplers. If she changes her mind, ok to re start to help manage maternal anxiety. All questions answered. Lachelle Hickman MD [facility] 12-07-2024 Miscellaneous Notes 12/07/2024 [facility] Pt called and identified. NIPT testing for E is negative. This means that the baby does not have E antigen and is not at risk from isoimmunization. Results discussed with pt, including the small risk that the test is incorrect. We discussed that, assuming the test is correct, she does not require MCA dopplers and could deliver at a hospital of her choice. Pt chooses to stop MCA dopplers. If she changes her mind, ok to re start to help manage maternal anxiety. All questions answered. Lachelle Hickman MD documented in this encounter [facility] 12-07-[address] [facility] Referral Lab 1 [facility] ic Labs 12/07/2024 8:40 AM EDT [facility] Comment on above: [facility] [employer] 12-06-2024 Note HNO ID: [id number] Author: LACHELLE HICKMAN MD Service: ? Author Type: Physician Type: Progress Notes Filed: 12/06/2024 15:55 Note Text: [facility] STAFF Pt is a 29 year old at 24w2d who has the following issues. Please see recommendations in problem based charting. Last menstrual period 06/19/2024. I have communicated my name and active licensure. The patient's identity and physical location were verified at the time of this visit. Either the patient or their legal sales representative metals has been informed of the risks and benefits of -- and alternatives to -- treatment through a remote evaluation and consents to proceed with the evaluation remotely. 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 Awaiting antigen testing results. 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 Further planning after antigen status known. Continue MCA dopplers for now. Pt should have an inperson MF visit at 34-36 weeks for delivery planning. Pt states that her general OB wants her to deliver at [place] as [place] is not idea for an baby affected by isoimmunization. MD Lachelle Perez MD [facility] 12-06-2024 History of Present illness Narrative [facility] STAFF Pt is a 29 year old at 24w2d who has the following issues. Please see recommendations in problem based charting. Last menstrual period 06/19/2024. I have communicated my name and active licensure. The patient's identity and physical location were verified at the time of this visit. Either the patient or their legal sales representative metals has been informed of the risks and benefits of -- and alternatives to -- treatment through a remote evaluation and consents to proceed with the evaluation remotely. 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 Awaiting antigen testing results. 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 Further planning after antigen status known. Continue MCA dopplers for now. Pt should have an inperson MFM visit at 34-36 weeks for delivery planning. Pt states that her general OB wants her to deliver at [place] as [facility] is not idea for an baby affected by isoimmunization. MD Lachelle Perez MD documented in this encounter [facility] 12-06-2024 Note Indication Evaluation of growth Antibody E isoimmunization Impression REMOTE READ - Single, live, intrauterine . - growth restriction is present. - The EFW is 712 g, at the 54%. AC is at the 61%. - Adequate interval growth. - The amniotic fluid volume is normal amount with an MVP of 3.9 cm and an SADIA of 13.5 cm. - The placenta is posterior, fundal. - No malformations visualized on a limited survey as detailed below. - Doppler velocimetry of the middle cerebral artery is 1.17 MoM with no evidence of severe anemia Recommendations Continue planned surveillance Maternal Assessment Height 163 cm Height (ft) 5 ft Height (in) 4 in Physical Exam Initial weight (lb) 169 lb Initial BMI 29.01 kg/m Maternal assessment other: 5 Para 3 Method Transabdominal ultrasound examination [place] . Number of fetuses: 1 Dating LMP on: 06/19/2024 GA by LMP 24 w + 2 d CHANELL by LMP: 03/26/2025 GA by prior assessment 24 w + 2 d CHANELL by prior assessment: 03/26/2025 Ultrasound examination on: 12/06/2024 GA by U/S based upon: AC, BPD, Femur, HC GA by U/S 24 w + 5 d CHANELL by U/S: 03/23/2025 Assigned: based on stated CHANELL, selected on 11/08/2024 Assigned GA 24 w + 2 d Assigned CHANELL: 03/26/2025 General Evaluation Cardiac activity present. FHR 156 bpm. movements: present. Presentation: cephalic Placenta: Placental site: posterior, fundal Umbilical cord: Cord vessels: 3 vessel cord Amniotic fluid: Amount of AF: normal amount. MVP 3.9 cm. SADIA 13.5 cm. Q1 2.6 cm, Q2 3.9 cm, Q3 3.8 cm, Q4 3.2 cm Growth Overview Exam date GA BPD (mm) HC (mm) AC (mm) FL (mm) HL (mm) EFW (g) 11/08/2024 20w 2d 48.3 63% 184.9 67% 155.8 60% 32.4 58% 31.7 64% 358 56% 12/06/2024 24w 2d 61.1 64% 232 70% 203 61% 42.4 48% 712 54% Biometry Standard BPD 61.1 mm 24w 6d 64% Hadlock OFD 82.8 mm 25w 0d 87% Nicolaides HC 232.0 mm 25w 0d 70% Mariel AC 203.0 mm 24w 6d 61% Hadlock Femur 42.4 mm 24w 0d 48% Mariel EFW 712 g 24w 3d 54% Hadlock EFW (lb) 1 lb EFW (oz) 9 oz EFW by: Hadlock (HC-AC-FL) Extended Technical Delivery Manager 3.4 mm Extremities / Bony Struc FL / HC 0.18 Other Structures FHR 156 bpm Anatomy Lateral ventricles: normal Cavum septi pellucidi: normal Cerebellum: normal Cisterna magna: normal 4-chamber view: normal RVOT view: normal LVOT view: normal 3-vessel view: normal Heart / Thorax Situs: situs solitus (normal) Diaphragm: normal Stomach: normal Kidneys: normal Bladder: normal sex: male Wants to know sex: yes Doppler Arterial MCA PI 2.90 >99% Peter MCA PS 36.29 cm/s MoM 1.17 Performed By: Hussein Perkins RDMS, RVT Read By: Stephani Cano M.D. [facility] 12-06-2024 Progress note Formatting of t his note might be different from the original. RR- VB No. LOF No. CTXS No. Movement: present. Other c/o: No. Medication list reviewed. SENSITIVE EXAM: Sensitive exam not performed. Physical Exam See Flow Sheet Abd: soft, nontender, gravid A/P 24w2d Estimated Date of Delivery: 03/26/25 Assessment & Plan Supervision of high risk in second trimester (HCC) Orders: GESTATIONAL GLUCOSE SCREEN, 1-HOUR, 50 GRAM, NON-FASTING; Future SYPHILIS TREPONEMAL W/REFLEX; Future ANEMIA REFLEX PANEL; Future 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, single or unspecified fetus (HCC) has f/u scheduled, partner tested and has big E cont. dopplers and close surveillance Orders: GESTATIONAL GLUCOSE SCREEN, 1-HOUR, 50 GRAM, NON-FASTING; Future SYPHILIS TREPONEMAL W/REFLEX; Future ANEMIA REFLEX PANEL; Future Tobacco smoking complicating in second trimester (HCC) vaping, cutting back, quit THC Orders: GESTATIONAL GLUCOSE SCREEN, 1-HOUR, 50 GRAM, NON-FASTING; Future SYPHILIS TREPONEMAL W/REFLEX; Future ANEMIA REFLEX PANEL; Future 24 weeks gestation of (HCC) Orders: GESTATIONAL GLUCOSE SCREEN, 1-HOUR, 50 GRAM, NON-FASTING; Future SYPHILIS TREPONEMAL W/REFLEX; Future ANEMIA REFLEX PANEL; Future Kayla Robb M.D. T [facility] 12-06-2024 Miscellaneous Notes RR- VB No. LOF No. CTXS No. Movement: present. Other c/o: No. Medication list reviewed. SENSITIVE EXAM: Sensitive exam not performed. Physical Exam See Flow Sheet Abd: soft, nontender, gravid A/P 24w2d Estimated Date of Delivery: 03/26/25 Assessment & Plan Supervision of high risk in second trimester ([facility]) Orders: GESTATIONAL GLUCOSE SCREEN, 1-HOUR, 50 GRAM, NON-FASTING; Future SYPHILIS TREPONEMAL W/REFLEX; Future ANEMIA REFLEX PANEL; Future 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, single or unspecified fetus (HCC) has f/u scheduled, partner tested and has big E cont. dopplers and close surveillance Orders: GESTATIONAL GLUCOSE SCREEN, 1-HOUR, 50 GRAM, NON-FASTING; Future SYPHILIS TREPONEMAL W/REFLEX; Future ANEMIA REFLEX PANEL; Future Tobacco smoking complicating in second trimester (HCC) vaping, cutting back, quit THC Orders: GESTATIONAL GLUCOSE SCREEN, 1-HOUR, 50 GRAM, NON-FASTING; Future SYPHILIS TREPONEMAL W/REFLEX; Future ANEMIA REFLEX PANEL; Future 24 weeks gestation of ([facility]) Orders: GESTATIONAL GLUCOSE SCREEN, 1-HOUR, 50 GRAM, NON-FASTING; Future SYPHILIS TREPONEMAL W/REFLEX; Future ANEMIA REFLEX PANEL; Future Kayla Robb M.D. documented in this encounter [facility] 12-06-2024 Instructions Sumi Buckner MA - 12/06/2024 11:16 AM EDT SEQUENTIAL SCREENINGS The [facility] offers sequential screenings for women who are interested in screenings for chromosomal abnormalities and certain defects during a . The sequential screen combines ultrasound and blood tests to determine the risk of chromosomal abnormalities, including Down's Syndrome (Trisomy 21) and Trisomy 18, as well as open neural tube defects including spina bifida. Ultrasound examination is performed between 11 weeks and 13 weeks gestational age. Blood tests are drawn after the ultrasound and again later in the between 15 and 21 weeks gestational age. Please let your physician know if you are interested in this testing. It will require an appointment with our nitriles lab technician. This is not an ultrasound performed by a physician in our office during a routine visit. SIGNS AND SYMPTOMS OF LABOR 1. Contractions every 10 minutes or more often 2. Clear, pink, or brownish fluid (water) leaking from vagina 3. Feeling that baby is pushing down, pressure 4. Low, dull backache 5. Cramps that feel like a period 6. Cramps with or without diarrhea If you notice any of the above symptoms, contact our office at [phone] and ask to speak with a nurse. After hours, you can call doctors registry at [phone] OR call [facility] at [phone] and ask to have the doctor database administration manager paged. If you consider this an emergency, dial 9-1-0 or go to your nearest emergency department. NEED HELP? Are you dealing with a violent or abusive relationship? Are you a victim of rape or sexual assult? Call [facility] ([place]) 24 hour Crisis Hotline: 970.939.2062 or 665-475-8889. MANUAL Your Guide to a Healthy manual is now on-line. Visit [email or web address] ncyGuide to download your free copy documented in this encounter [facility] 11-29-2024 History of Present illness Narrative Images from the original note were not included. REPRODUCTIVE GENETIC COUNSELING FOLLOW-UP VISIT Calin Graf : 1995 Above identifiers confirmed by Roxanne Cordoba MS, [facility] Consultation requested by: Dr. Lachelle Hickman Date of clinic visit: November 29, 2024 Contract Negotiator offered/present: No - [place]ib[place]ian per EMR Calin Graf is a 29 year old female referred by Dr. Hickman for genetic counseling to discuss antigen non-invasive testing (NIPT). She was accompanied to the visit today by her partner, Louis, and son, Logan. PRESENTING PROBLEM: Ms. Graf is a 29 year old female presenting for a follow-up genetics visit to discuss antigen NIPT. She was very briefly seen on 11/27/24 - at that time, her partner's antigen zygosity status was pending. 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 She presents today to discuss available options further. Mr. Bee'isaac results: REPRODUCTIVE HISTORY: Currently : Yes / 23w2d (by LMP) LMP: 06/19/25 CHANELL: 03/26/25 history: Per EMR - not discussed/verified per patient request to not talk about her past 1. 2011, son, FT, VD, 2. 2014, SAB at 11 weeks, hemorrhaging post miscarriage requiring blood transfusion 3. 2015, daughter, FT, VD, 4. 2021, son, FT, IOL at 37 weeks due to anti-E critical titers, VD (present at visit; different partner per EMR) 5. Current Infertility as a couple: Not assessed Parental Screens: CF: No SMA: No Hemoglobinopathies: No; Patient's MCV: 87.1 fL Rastafarian Diseases: Not at increased risk Other: No Chromosomal analysis: Patient: No Partner: No Products of conception: No exposures: - vitamins or other folate supplementation: Yes - Prescription medicines: No - OTC medicines, herbal medicines, other supplements: Yes - Tylenol as needed - Tobacco, alcohol, or illicit drugs: Yes - Nicotine, trying to quit - Maternal infections or fevers: No - Other known/suspected human teratogens: No Aneuploidy screening: yes (Date: 09/13/24, Result: Negative). - NIPT ([id number]): - Screen negative for Trisomy 21, Trisomy 18, Trisomy 13, and sex chromosome aneuploidies - Reported sex: male Ultrasounds: - Dating scan at 6 weeks gestation by LMP (performed by Rylee Scott APRN.ELECTRIC LOCOMOTIVE CRANE OPERATOR): 6 weeks by scan. - First trimester anatomy: performed 09/13/[address] Cano; unremarkable - anatomy performed 11/08/[address] Cano; normal; normal amniotic fluid volume. - MCA dopplers performed 11/22/[address] Hickman; normal; normal amniotic fluid volume. CVS: No Amniocentesis: No complications: - Maternal diabetes, hypertension, seizures, other illness: No - Vaginal bleeding, labor, other complications: No - Decreased movement: No- Increasing movement SIGNIFICANT PAST MEDICAL/SURGICAL HISTORIES: [place]: - No major medical concerns Louis: (age 36) - No major medical concerns FAMILY HISTORY: A full 3-generation pedigree was not obtained for the patient and her partner per patient request. Mr. Bee reported his maternal half-sister was born with a congenital heart defect (leaky valve s/p surgery at 3 months; isolated) The couple denied a family history of genetic disorders. - Patient's ethnicity: Urdu - Partner's ethnicity: Northern - Patient and/or partner did not report -Ukrainian, , Mediterranean, Ashkenazi Rastafarian and/or [place] Verdean-H[place] Konger/Cajun ancestries unless noted above. - Patient and partner are NOT consanguineous GENETIC COUNSELING/DISCUSSION: is a 29 year old female presenting for follow-up genetic counseling to discuss NIPT options for E antigen screening as noted in the HPI. A brief explanation of antigens, antibodies, isoimmunization, and hemolytic disease of the fetus and (HDFN) were provided. Reviewed Ms. Graf' anti-E antibodies and her partner's heterozygosity for E antigen (Ee). Outlined reproductive risks as followed: - 50% chance the has E antigen (Ee) and would be at risk for HDFN, requiring additional ultrasound monitoring - 50% chance the does not have E antigen (ee) and would not be at risk for HDFN. Per discussion with Dr. Hickman, additional ultrasound monitoring would not be necessary in this case Further discussion about HDFN and associated risks are deferred to [facility]. Reviewed the availability of antigen non-invasive testing (NIPT), which includes E antigen screening. Explained antigen screening cannot be ordered alone, so routine NIPT for aneuploidy (Down syndrome, Trisomy 18, Trisomy 13, and sex chromosome aneuploidy) would be completed again. Reviewed her prior negative results for these conditions - while screen negative results would be expected again, a different result is possible. Discussed risks, benefits, limitations, costs, and turnaround times. Given this is a screen and not a diagnostic test, false negatives and false positives are possible. Ms. Graf stated understanding, and opts for NIPT ([place]) for E antigen screening. Due to patient preference/request, a full , medical, and family history were not reviewed today. Carrier screening options were not reviewed today either. A follow-up genetic counseling visit is available if desired to review this. Carrier screening should be offered at a future OB visit or prior to any future pregnancies. SUGGESTIONS/PLAN: 1. Ms. Graf opted for NIPT ([place]) which includes E antigen screening. The orders have been placed and she will be notified of the results. 2. Follow-up as indicated by the above results. 3. Encouraged them to contact me with any questions/concerns/etc. Thank you for referring Ms. Graf. Please do not hesitate to call if you have questions/concerns. The patient was seen for a total of 20 minutes, greater than 50% of which was spent [id number] counseling. This plan is being carried out under the oversight of Dr. Maria C Bond. This note will also be sent to the referring provider via the electronic medical record. Roxanne Cordoba MS, [facility] Licensed, Certified Genetic Counselor [facility] CC: Dr. Lachelle Hickman - Referring Physician Dr. Kayla Robb - OB Dr. Maria C Bond (project administrative assistant) documented in this encounter [facility] 11-29-2024 Note HNO ID: [id number] Author: ROXANNE CORDOBA LGC Service: ? Author Type: Genetic Counselor Type: Progress Notes Filed: 12/26/2024 18:42 Note Text: REPRODUCTIVE GENETIC COUNSELING FOLLOW-UP VISIT Calin Graf : 1995 Above identifiers confirmed by Roxanne Cordoba MS, [facility] Consultation requested by: Dr. Lachelle Hickman Date of clinic visit: November 29, 2024 Contract Negotiator offered/present: No - Djiboutian per EMR Calin Graf is a 29 year old female referred by Dr. Hickman for genetic counseling to discuss antigen non-invasive testing (NIPT). She was accompanied to the visit today by her partner, Louis, and son, Logan. PRESENTING PROBLEM: Ms. Graf is a 29 year old female presenting for a follow-up genetics visit to discuss antigen NIPT. She was very briefly seen on 11/27/24 - at that time, her partner's antigen zygosity status was pending. 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 She presents today to discuss available options further. Mr. Bee's results: REPRODUCTIVE HISTORY: Currently : Yes / 23w2d (by LMP) LMP: 06/19/25 CHANELL: 03/26/25 history: Per EMR - not discussed/verified per patient request to not talk about her past 1. 2011, son, FT, VD, 2. 2014, SAB at 11 weeks, hemorrhaging post miscarriage requiring blood transfusion 3. 2015, daughter, FT, VD, 4. 2021, son, FT, IOL at 37 weeks due to anti-E critical titers, VD (present at visit; different partner per EMR) 5. Current Infertility as a couple: Not assessed Parental Screens: CF: No SMA: No Hemoglobinopathies: No; Patient's MCV: 87.1 fL Rastafarian Diseases: Not at increased risk Other: No Chromosomal analysis: Patient: No Partner: No Products of conception: No exposures: - vitamins or other folate supplementation: Yes - Prescription medicines: No - OTC medicines, herbal medicines, other supplements: Yes - Tylenol as needed - Tobacco, alcohol, or illicit drugs: Yes - Nicotine, trying to quit - Maternal infections or fevers: No - Other known/suspected human teratogens: No Aneuploidy screening: yes (Date: 09/13/24, Result: Negative). - NIPT ([id number]): - Screen negative for Trisomy 21, Trisomy 18, Trisomy 13, and sex chromosome aneuploidies - Reported sex: male Ultrasounds: - Dating scan at 6 weeks gestation by LMP (performed by Rylee Scott APRN.ELECTRIC LOCOMOTIVE CRANE OPERATOR): 6 weeks by scan. - First trimester anatomy: performed 09/13/[address] Cano; unremarkable - anatomy performed 11/08/[address] Cano; normal; normal amniotic fluid volume. - MCA dopplers performed 11/22/[address] Hickman; normal; normal amniotic fluid volume. CVS: No Amniocentesis: No complications: - Maternal diabetes, hypertension, seizures, other illness: No - Vaginal bleeding, labor, other complications: No - Decreased movement: No- Increasing movement SIGNIFICANT PAST MEDICAL/SURGICAL HISTORIES: Calin: - No major medical concerns Louis: (age 36) - No major medical concerns FAMILY HISTORY: A full 3-generation pedigree was not obtained for the patient and her partner per patient request. Mr. Bee reported his maternal half-sister was born with a congenital heart defect (leaky valve s/p surgery at 3 months; isolated) The couple denied a family history of genetic disorders. - Patient's ethnicity: Urdu - Partner's ethnicity: Northern - Patient and/or partner did not report -Ukrainian, , Mediterranean, Ashkenazi Rastafarian and/or Cape Verdean-H[place] Konger/Cajun ancestries unless noted above. - Patient and partner are NOT consanguineous GENETIC COUNSELING/DISCUSSION: is a 29 year old female presenting for follow-up genetic counseling to discuss NIPT options for E antigen screening as noted in the HPI. A brief explanation of antigens, antibodies, isoimmunization, and hemolytic disease of the fetus and (HDFN) were provided. Reviewed Ms. Graf' anti-E antibodies and her partner's heterozygosity for E antigen (Ee). Outlined reproductive risks as followed: - 50% chance the has E antigen (Ee) and would be at risk for HDFN, requiring additional ultrasound monitoring - 50% chance the does not have E antigen (ee) and would not be at risk for HDFN. Per discussion with Dr. Hickman, additional ultrasound monitoring would not be necessary in this case Further discussion about HDFN and associated risks are deferred to [facility]. Reviewed the availability of antigen non-invasive testing (NIPT), which includes E antigen screening. Explained antigen screening cannot be ordered alone, so routine NIPT for aneuploidy (Down syndrome, Trisomy (more content not included)... [facility] 11-27-2024 History of Present illness Narrative REPRODUCTIVE GENETIC COUNSELING INITIAL VISIT Calin Graf : 1995 Above identifiers confirmed by Roxanne Cordoba MS, [facility] Consultation requested by: Dr. Lachelle Hickman Date of clinic visit: November 27, 2024 Contract Negotiator offered/present: No - [place]ib[place]ian per EMR Calin Graf is a 29 year old female referred by Dr. Hickman for genetic counseling to discuss antigen non-invasive testing (NIPT). Ms. Graf is seen via a virtual Distance Health visit today via [employer] platform per patient choice. The visit is conducted synchronously in real-time. The patient is unaccompanied. I have communicated my name and active licensure. The patient's identity and physical location were verified at the time of this visit. Either the patient or their legal sales representative metals has been informed of the risks and benefits of -- and alternatives to -- treatment through a remote evaluation and consents to proceed with the evaluation remotely. PRESENTING PROBLEM: Ms. Graf is a 29 year old female referred to genetics to discuss NIPT for antigens, specifically for E antigen as she has anti-E antibodies and her partner is E antigen positive. BRIEF GENETIC COUNSELING/DISCUSSION: This was a brief genetic counseling discussion given Ms. Graf' late arrival and need to leave for work. Ms. Graf was referred to further review/coordinate antigen NIPT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 dose aspirin at different doses and frequencies for at least six months. The study reported a decrease in the amount and quality of sperm, especially in those who used higher amounts of aspirin. Generally, it is not considered necessary for men to stop using low dose aspirin before trying to get their partner . However, men undergoing fertility treatment may want to talk with their healthcare providers about whether or not they need to stop taking aspirin. In general, exposures that fathers or sperm donors have are unlikely to increase the risks to a . For more information, please see the MotherToBaby fact sheet Paternal Exposures at [email or web address]/fact-she [email or web address]-ucxvzsneb-arqajidyp/ . documented in this encounter [facility] 10-03-2024 Note HNO ID: [id number] Author: FRANCISCO CHAVEZ PA-C Service: ? Author Type: Physician Embedder Type: Progress Notes Filed: 10/03/2024 11:32 Note Text: This note was created using [employer]. Subjective Calin Graf is a 29 year old female. Patient is a 29-year-old female who complains of ongoing cough that she has been experiencing for the past 3+ weeks. Patient does not have asthma but states that she has been prescribed an albuterol MDI in the past for episodes of bronchitis. Patient reports no fever, chills or myalgia. Patient denies congestion, sinus pressure, ear pain or sore throat. Patient is approximately 12 weeks gestation. Cough Review of Systems Respiratory: Positive for cough. All other systems reviewed and are negative. Objective BP 110/72 Pulse 98 Temp 36.6 ?C (97.9 ?F) (Tympanic) Resp 18 Wt 78.6 kg (173 lb 4.5 oz) LMP 06/19/2024 (Approximate) SpO2 99% BMI 28.84 kg/m? Physical Exam Vitals and nursing note reviewed. Constitutional: Appearance: Normal appearance. She is normal weight. HENT: Head: Normocephalic and atraumatic. Right Ear: Tympanic membrane, ear canal and external ear normal. Left Ear: Tympanic membrane, ear canal and external ear normal. Nose: Nose normal. Mouth/Throat: Mouth: Mucous membranes are moist. Pharynx: Oropharynx is clear. Eyes: Extraocular Movements: Extraocular movements intact. Conjunctiva/sclera: Conjunctivae normal. Pupils: Pupils are equal, round, and reactive to light. Cardiovascular: Rate and Rhythm: Normal rate and regular rhythm. Pulses: Normal pulses. Heart sounds: Normal heart sounds. Pulmonary: Effort: Pulmonary effort is normal. Breath sounds: Normal breath sounds. Musculoskeletal: Cervical back: Normal range of motion and neck supple. Skin: General: Skin is warm and dry. Capillary Refill: Capillary refill takes less than 2 seconds. Neurological: General: No focal deficit present. Mental Status: She is alert and oriented to person, place, and time. Psychiatric: Mood and Affect: Mood normal. Behavior: Behavior normal. Thought Content: Thought content normal. Judgment: Judgment normal. Assessment and Plan Physical exam findings as noted above. Patient was provided with prescriptions for Zithromax 250 mg and an albuterol MDI. Patient was very clearly instructed to contact her SITE AUDITOR or report to an emergency department if she notes any acute worsening of her symptoms. Patient verbalizes good understanding of the above instructions. CLINICAL IMPRESSION: Bronchopneumonia; Persistent Cough ASSESSMENT/PLAN: 1. Bronchopneumonia - ICD9: 485, ICD10: J18.0 - AZITHROMYCIN 250 MG TABLET - ALBUTEROL SULFATE HFA 90 MCG/ACTUATION AEROSOL INHALER - INHALATIONAL SPACING DEVICE Francisco Chavez PA-C [facility] 10-03-2024 History of Present illness Narrative This note was created using Content [employer]. Subjective Calin Graf is a 29 year old female. Patient is a 29-year-old female who complains of ongoing cough that she has been experiencing for the past 3+ weeks. Patient does not have asthma but states that she has been prescribed an albuterol MDI in the past for episodes of bronchitis. Patient reports no fever, chills or myalgia. Patient denies congestion, sinus pressure, ear pain or sore throat. Patient is approximately 12 weeks gestation. Cough Review of Systems Respiratory: Positive for cough. All other systems reviewed and are negative. Objective BP 110/72 Pulse 98 Temp 36.6 C (97.9 F) (Tympanic) Resp 18 Wt 78.6 kg (173 lb 4.5 oz) LMP 06/19/2024 (Approximate) SpO2 99% BMI 28.84 kg/m Physical Exam Vitals and nursing note reviewed. Constitutional: Appearance: Normal appearance. She is normal weight. HENT: Head: Normocephalic and atraumatic. Right Ear: Tympanic membrane, ear canal and external ear normal. Left Ear: Tympanic membrane, ear canal and external ear normal. Nose: Nose normal. Mouth/Throat: Mouth: Mucous membranes are moist. Pharynx: Oropharynx is clear. Eyes: Extraocular Movements: Extraocular movements intact. Conjunctiva/sclera: Conjunctivae normal. Pupils: Pupils are equal, round, and reactive to light. Cardiovascular: Rate and Rhythm: Normal rate and regular rhythm. Pulses: Normal pulses. Heart sounds: Normal heart sounds. Pulmonary: Effort: Pulmonary effort is normal. Breath sounds: Normal breath sounds. Musculoskeletal: Cervical back: Normal range of motion and neck supple. Skin: General: Skin is warm and dry. Capillary Refill: Capillary refill takes less than 2 seconds. Neurological: General: No focal deficit present. Mental Status: She is alert and oriented to person, place, and time. Psychiatric: Mood and Affect: Mood normal. Behavior: Behavior normal. Thought Content: Thought content normal. Judgment: Judgment normal. Assessment and Plan Physical exam findings as noted above. Patient was provided with prescriptions for Zithromax 250 mg and an albuterol MDI. Patient was very clearly instructed to contact her SITE AUDITOR or report to an emergency department if she notes any acute worsening of her symptoms. Patient verbalizes good understanding of the above instructions. CLINICAL IMPRESSION: Bronchopneumonia; Persistent Cough ASSESSMENT/PLAN: 1. Bronchopneumonia - ICD9: 485, ICD10: J18.0 - AZITHROMYCIN 250 MG TABLET - ALBUTEROL SULFATE HFA 90 MCG/ACTUATION AEROSOL INHALER - INHALATIONAL SPACING DEVICE Francisco Chavez PA-C documented in this encounter [facility] 09-22-2024 Telephone encounter Note Patient asking if a different PNV can be sent to her pharmacy as her insurance is not covering the one that was sent. Hussein Fields RN [facility] 09-22-2024 Miscellaneous Notes Patient asking if a different PNV can be sent to her pharmacy as her insurance is not covering the one that was sent. Hussein Fields RN documented in this encounter [facility] 09-14-2024 Telephone encounter Note No further info available until quant is done. Hep C antibody will always be + Rylee Scott APRN.CNP [facility] 09-14-2024 Miscellaneous Notes No further info available until quant is done. Hep C antibody will always be + Rylee Scott APRN.CNP 12w3d Pt calling anxious about lab result of HEPATITIS C ANTIBODY IA WITH CONFIRMATION being positive. Advised Pt that Hepatitis C Virus (HCV) RNA, Quantitative PCR, Plasma/Serum has been ordered and we will notify her once this results. Pt states she has confirmation of Hepatitis C negative in 06/2023 and has done nothing to re-infect herself with Hepatitis C. Please advise if additional advise needs given to Pt. Amara Medina RN documented in this encounter [facility] 09-14-2024 Telephone encounter Note 12w3d Pt calling anxious about lab result of HEPATITIS C ANTIBODY IA WITH CONFIRMATION being positive. Advised Pt that Hepatitis C Virus (HCV) RNA, Quantitative PCR, Plasma/Serum has been ordered and we will notify her once this results. Pt states she has confirmation of Hepatitis C negative in 06/2023 and has done nothing to re-infect herself with Hepatitis C. Please advise if additional advise needs given to Pt. Amara Medina RN [facility] 09-13-2024 Progress note Formatting of t his note might be different from the original. RR- VB No. LOF No. CTXS No. Movement: absent. Other c/o: nausea intermittently Medication list reviewed. SENSITIVE EXAM: Sensitive exam not performed. Physical Exam See Flow Sheet Abd: soft, nontender, gravid Ext: edema: no A/P 12w2d Estimated Date of Delivery: 03/26/25 PN labs and [id number] today rx for PNV f/u in 4 weeks. Encounter for supervision of high risk in first trimester, antepartum Orders: vit 31-qrtd-ikvia-dha (SELECT-OB+DHA) 29 mg iron-1 mg -250 mg; Take by mouth as directed. Take 1 tablet and 1 capsule by mouth daily. doxylamine-pyridoxine, vit B6, (DICLEGIS) 10-10 mg TbEC; Take 2 tabs at night. If symptoms persist after 2 days add one tab in the morning. If symptoms still persist after 4 days add a tab mid-day 12 weeks gestation of Orders: doxylamine-pyridoxine, vit B6, (DICLEGIS) 10-10 mg TbEC; Take 2 tabs at night. If symptoms persist after 2 days add one tab in the morning. If symptoms still persist after 4 days add a tab mid-day nasuea- d/w her symptomatic measures trial doxylamine/vit b6 prn Nausea and vomiting during Orders: doxylamine-pyridoxine, vit B6, (DICLEGIS) 10-10 mg TbEC; Take 2 tabs at night. If symptoms persist after 2 days add one tab in the morning. If symptoms still persist after 4 days add a tab mid-day 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, single or unspecified fetus Kayla Robb M.D. [facility] 09-13-2024 Miscellaneous Notes RR- VB No. LOF No. CTXS No. Movement: absent. Other c/o: nausea intermittently Medication list reviewed. SENSITIVE EXAM: Sensitive exam not performed. Physical Exam See Flow Sheet Abd: soft, nontender, gravid Ext: edema: no A/P 12w2d Estimated Date of Delivery: 03/26/25 PN labs and [id number] today rx for PNV f/u in 4 weeks. Encounter for supervision of high risk in first trimester, antepartum Orders: vit 78-ijwu-udibf-dha (SELECT-OB+DHA) 29 mg iron-1 mg -250 mg; Take by mouth as directed. Take 1 tablet and 1 capsule by mouth daily. doxylamine-pyridoxine, vit B6, (DICLEGIS) 10-10 mg TbEC; Take 2 tabs at night. If symptoms persist after 2 days add one tab in the morning. If symptoms still persist after 4 days add a tab mid-day 12 weeks gestation of Orders: doxylamine-pyridoxine, vit B6, (DICLEGIS) 10-10 mg TbEC; Take 2 tabs at night. If symptoms persist after 2 days add one tab in the morning. If symptoms still persist after 4 days add a tab mid-day nasuea- d/w her symptomatic measures trial doxylamine/vit b6 prn Nausea and vomiting during Orders: doxylamine-pyridoxine, vit B6, (DICLEGIS) 10-10 mg TbEC; Take 2 tabs at night. If symptoms persist after 2 days add one tab in the morning. If symptoms still persist after 4 days add a tab mid-day 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, single or unspecified fetus Kayla Robb M.D. documented in this encounter [facility] 09-13-2024 Instructions Regina SumiWILLIAMS - 09/13/2024 1:21 PM EST SEQUENTIAL SCREENINGS The [facility] offers sequential screenings for women who are interested in screenings for chromosomal abnormalities and certain defects during a . The sequential screen combines ultrasound and blood tests to determine the risk of chromosomal abnormalities, including Down's Syndrome (Trisomy 21) and Trisomy 18, as well as open neural tube defects including spina bifida. Ultrasound examination is performed between 11 weeks and 13 weeks gestational age. Blood tests are drawn after the ultrasound and again later in the between 15 and 21 weeks gestational age. Please let your physician know if you are interested in this testing. It will require an appointment with our nitriles lab technician. This is not an ultrasound performed by a physician in our office during a routine visit. SIGNS AND SYMPTOMS OF LABOR 1. Contractions every 10 minutes or more often 2. Clear, pink, or brownish fluid (water) leaking from vagina 3. Feeling that baby is pushing down, pressure 4. Low, dull backache 5. Cramps that feel like a period 6. Cramps with or without diarrhea If you notice any of the above symptoms, contact our office at [phone] and ask to speak with a nurse. After hours, you can call doctors registry at [phone] OR call [facility] at [phone] and ask to have the doctor database administration manager paged. If you consider this an emergency, dial 9-1-3 or go to your nearest emergency department. NEED HELP? Are you dealing with a violent or abusive relationship? Are you a victim of rape or sexual assult? Call [facility] [place] ([place]) 24 hour Crisis Hotline: 539.247.7755 or 679-350-8662. MANUAL Your Guide to a Healthy manual is now on-line. Visit [email or web address] ncyGuide to download your free copy documented in this encounter [facility] 08-04-2024 Telephone encounter Note 1st risk assessment form submitted 08/04/24 Nicole Ambriz RN [facility] 08-04-2024 Miscellaneous Notes 1st risk assessment form submitted 08/04/24 Nicole Ambriz RN documented in this encounter [facility] 08-02-2024 Rylee Sandoval APRN.SHERWIN - 08/02/2024 10:54 AM EST Images from the original note were not included. Please select the following link to access the [facility] Your Guide to a Healthy . [email or web address] Psychotherapy Services at [facility] Call Behavioral Health Access Line at [phone] to schedule Individual psychotherapy In-person or virtual Wait time for first evaluation may be 12 or more weeks. Wait list spots may be available. Due to the high volume of patients this option is recommended if you are looking for short term acute symptom coping strategies. 7-481-5-JLBQ2OQWW - [place] Maternal Mental Health Hotline If you are in suicidal crisis, please call or text 4-873-647-TALK ( ) or visit the National Suicide Prevention Lifeline website. [facility].gov If you are in crisis, call 191 or go to your nearest Emergency Department Here are some links for wonderful Providers here in the community and surrounding areas. Do not hesitate to contact their offices, many are offering virtual visits during this time. Psychotherapy Services outside of [facility] Support [employer] Online Provider Directory https://Last Size.[employer]/ - can assist in finding providers in your area that might be more extensive then the list below. [facility] [place], [place] [address] [place], [facility] [address] [place] [address] [facility] [address] [place] [address] [facility] [address] [place], [place] [id number] Anayeli Lambert MD [address] [place] [address] [facility] [address] [facility], [address] [place] [address] [facility] [address] [place] [address] [facility] [place] [facility] [place] [phone]/ [phone] Alycia Hays [address] [facility] [phone] [facility] Prisca / Jesse [phone] [facility] [address] [place] [address]/ [place] [phone] Hunter Waite, DANI, C[facility] Works[facility], telehealth and at home visits. [phone] [facility] counseling [place] 20 locations [place], [place], [place], [place], [place], [place], [place], [facility], [place], [place], [place], [place], [place], [place], [facility], [place], [place] ,[facility], [place], [place],[facility], [place], [place], [facility], [facility], [place] www.[facility] [phone] Psychotherapy resources outside of [facility] are listed below [facility] Oversee Psychotherapy Web: https://www.RiskIQ/ Support International Online Provider Directory https://Good Health Media/ Insight Counseling https://Beyond Oblivion/ Trusted Insight for Behavioral Health and Wellness Web: https://CopsForHire/ RadioShack for Effective Living Web: https://Variad DiagnosticslivingThe LaCrosse Group/ LifeStance Web: https://Accord.Fate Therapeutics/location/s sparks/[place]/ [facility] Web: https://www.Varonis Systemspeak behavioral health services.or / [facility] Web: https://D[employer]el [employer].org/ Recovery Resources Mental health and substance abuse help Web: https://www.TGS Knee Innovations.Lockdown Networks & RESOURCES Support International Direct peer support and connection to professional resources Non-Emergency Helpline Phone: / Text: [phone] Web: https://www..net/ Online Provider Directory: https://Good Health Media/ Online Support Meetings: https://www..net/get-he lp/efy-xynagf-damrgqd-meetings/ ANTHONY Baby and Guest Relations Representative Services Web: https://wwwGiPStech/ MotherToBaby Expert information on medication use during and Text: [phone] Web: https://mothertobaby.org/ NATIONAL REGISTRY FOR PSYCHIATRIC MEDICATIONS Currently studying the safety of antidepressants, ADHD medications and atypical antipsychotics taken during TO PARTICIPATE CALL TOLL-FREE: Web: https://womenentalhealth.org/re search/pregnancyregistry/ Support Groups: [facility]- Follow on facebook Baby Bistro support group led by [facility] department Resilient Mamas - Support Group [facility].org The POEM support group [phone] Www.poemonline.org Follow on facebook - MEAGHAN connelly Online support meetings PSI https://www..net/get-he lp/nzf-rjenvf-lxjoocs-meetings/ [facility] mommy and me virtual support group 11:30-1pm Support for mothers and new babies and toddlers Don[place]han childbirth education: Childbirth @[facility].org or call [phone] CRISIS: CRISIS HOTLINE [phone], 911 or go to the nearest ER. [facility] [phone] / [facility] [phone] https://www.[facility].org Crisis text line text the word HOME to [address] [facility] Counseling [address] fanny [address] [facility] [address] www.Q Holdings Kaur Saunders clinical counseling [address] [address] www.vLine [phone] Holding space psychotherapy Faviola Thomas TELEVISION AND RADIO REPAIRER SECONDS GRADER-S [address] [facility] www.Fiiiling [phone]/ Lori [phone] They all offer virtual. All work with trauma Support groups Online support meetings PSI https://www..net/get-he lp/pui-wbrjqc-uelafep-meetings/ Here are the support groups they offer: Support of parents of 1 to 4 years old children POEM ( Outreach and Encouragement for Moms) offers free support for mothers experiencing depression, anxiety, and other mood and anxiety disorders. Masks are recommended but not required. No pre-registration required. Babies in arms welcome. meetings now take place on the and Wednesday of each month Location: Dmitriy [facility] [address] [place] [address] Room 122 (library room) 7-8:00 p.m. When you enter the religious parking lot off of [address] the entrance door closest to our meeting room is on the front of the building toward the right. For those who are more comfortable with a virtual platform, POEM offers online support group options several days of the week. To register for an online group or to find out more about POEM, website at: https://mhaohio.org/get-help/rome memorial hospitalbtjo-zdsxls-iqdemx/poem-services/ offer a confidential helpline: private Facebook group is called MEAGHAN Connelly Here are the groups they offer: Traumatic childbirth resources: Http://pattch.org/ https://www.eduplanet KKismaelXishiwang.comjenniferEyelation.Fate Therapeutics/ Name Location (s) Phone # (s) Services Website [facility] Psychotherapy [address] [place], [place] - [phone]; [address] [phone] In-Person GROUPS INDIVIDUAL THERAPY MATERNAL- MENTAL HEALTH MEDICATION MANAGEMENT PLAY AND ART THERAPY TELETHERAPY https://www.RiskIQ/s ervices/ Shayy of Kaylee MONTAÑO? [address] [place], [place] [address] ? [address], [address] [place], [place] [address] ? ELLIS [address] [place], [place] [address]? Grief Support Groups Individual Grief Counseling Spiritual Care Memorial Events https://gissell.[facility].org/grief-services [facility] [address] [facility], [place], [place] [address]; ; Email: [email or web address] Women's Mental Health; Couples Counseling; Trauma (EMDR); Stress Management; Mood and Anxiety Related Disorders- and much more https://www.Room 8 Studio/ LifeStance Numerous as they have contract providers: access website to find specific providers near you Counseling including CBT and EMDR as well as many more modalities; Medication Management; Telehealth and In-Person https://Kauli/ [facility] [address] [place], [place] [address]; [phone] Personal, Family and Group Therapy; Psychological Testing and Diagnosis; Medication Management; Life and Career Coaching; Psychoanalysis; Literacy Testing; Yoga and Meditation https://CopsForHire/ [facility] [address] [facility] [address], [place] [address] [address] ; [address] [facility], [address] [place] [address]; Office # for both sites: Individual and Couples Counseling https://www.Solartrec/ paymentinsurance.html OCD & Anxiety [facility] [address] [facility], [address], [place] [address]; Specialize in Cognitive-Behavioral Therapy (CBT) for the treatment of anxiety disorders across the lifespan. TELEHEALTH ONLY. https://ocdandanxietycenteroPsynova Neurotechv Nanomed Skincare/faqs Replaced By [facility] [place] [address] [facility] 6th [place], [address] [place] [address] [facility] [place], [address] [place] [address] [facility] [place], [address] [place] [address] [address] [facility]. [place] [employer], [place], [id number] [address], [id number] [place] [address] [facility] [place], [address] [place] [address] [place], [place], [id number] Transportation Services To minimize patient barriers, [facility] provides transportation services to patients who qualify. If you are unable to get to your appointment at any of our facilities, please let us know. Need help now? Stop by one of our walk-in clinics to establish behavioral health care. Counseling Indvidual, Group, Couples and Family Counseling and EMDR. Medication Management Case Management benefits applications housing assistance Substance abuse treatment Medication assisted treatment https://www.[facility].or g/mental-health/ [facility] OFFICE AT [facility] [address] [place] [address] [facility] OFFICE [address] [place] [address] [facility] OFFICE [address] [place] [address] U[facility] OFFICE (at [facility]) [address] [place] [address] [facility] S[facility] EXCHANGE PROGRAM & HIV SCREENING [address] [place] [address] VAN [facility] EXCHANGE PROGRAM [address] [place] [address] Behavioral Health Urgent Care: [facility] Sites Counseling Indvidual and Group Medication Management Case Management benefits applications housing assistance Substance abuse treatment Medication assisted treatment Employment Services/ Job Training https://theWIV Labs.org/ Recovery Resources [address] [place], [place] [address]: P: [phone] [address] [facility], [address], [place], [place] [address] P: [phone] Our services include: Addiction Mental Health Treatment Assessment Psychiatry Medical Care Employment Housing Drug and Alcohol Prevention HIV/AIDS Prevention https://www.recres.org/ [facility] [place] [address] [place] [address] [address] [place], [place] [address] [place] [address] [place] [address] [place] [address] [facility] [address] [place] [address] [place] [address] [place] [address] TMS Therapy/ Counseling Psychocological Testing for ADHD Medication Management In-Person/ Telemedicine https://www.MovingHealth.Fate Therapeutics/ivone ents-depression Memory & Psychological services [address] [place] [address], [place] [address] Neuropsychological Testing For ADHD https://www.memoryandpsych.com/ [facility] - Main Office [address] [place] [address] [address] Providing hfcu-rj-gxzf and telehealth services. Adult Case Management Community Education and Prevention Employment Outpatient Treatment - Counseling & Psychotherapy Psychiatric Services http://www.[facility].org/ [facility] [place] [address] [place] [address] [facility]) [address] [place] [address] Virtual Appointments! Now offering safe and convenient virtual client appointments to anyone in [place]! Individual Therapy Couples/Relationship Therapy Trauma/EMDR Therapy Art Therapy Play Therapy Blemish Remover Support: Parenting Skills, Parent Child Interaction Therapy, Parent Interaction Therapy Meditation Dietitian/Chief Of Service Services Group Therapy Yoga https://www.VBI Vaccines. Fate Therapeutics/ Nasreen Garcia [phone] Private Practice: Telehealth Only Specializes in EMDR for Trauma None MORNING SICKNESS IN by Nadeen Mancia M.D. for [employer] As you may already know, morning sickness can often be more appropriately called evening sickness or llvvo-lmhsxx-fn-the-day sickness. While there are the dhaval few, most women (50-90%) experience some degree of nausea, some have vomiting, and a few develop a severe form of vomiting during called hyperemesis gravidarum. What causes the nausea and vomiting of ? We can't explain why some people feel fine and others are green for months. Even the same woman may feel vastly different in each . There is some relationship between nausea and the level of the hormone hCG. In twin pregnancies, and in other situations where the hCG is greater than expected, nausea and vomiting tend to be worse. In a destined for miscarriage, hCG levels tend to be low, and nausea is often less severe. This being said, a lack of nausea doesn't guarantee that the is destined for miscarriage. The fact that nausea and vomiting are often signs of a healthy can offer a silver lining in the dark cloud of miserable nausea. How long will the nausea last? Fortunately, for most women, nausea and vomiting are a first trimester event, peaking at week 9-10 and waning by week 14-16. When you are feeling bad the weeks can go by slowly but most moms do feel tremendously better by the middle of the . Whether morning sickness is a brief experience or lasts through most of the , there are treatments that can make the weeks or months more tolerable. What can you do about it? Diet: See what works for you. Try eating bland dry foods, and avoid fatty or spicy foods. It is okay to eat a less than perfectly balanced diet in the first trimester. Have your liquids separately from dry foods. Try sports drinks, water, clear juices, Rasheed-aid, or non-caffeinated tea. Avoid carbonated beverages that fill up your stomach. Try eating lots of little meals. If you tend to feel sick when you first wake up, leave crackers next to the bed for a quick snack before rising. Keeping healthy snacks with you all day to nibble when you feel queasy can sometimes even prevent nausea from starting. vitamins and nausea: Pre-arnol vitamins can sometimes worsen nausea in . While folate is necessary, especially early in the , it comes as a smaller pill that many people find more tolerable than the complete vitamin pill. Ask your practitioner if it is okay to temporarily replace vitamins and iron with just a folate pill if you find a significant worsening in the level of your nausea from the vitamins. Alternative therapies: Acupressure may be used to treat nausea in , and is not known to have any risks for the fetus. Wristbands (marketed for seasickness) that put pressure on an acupressure point at the wrist are often available at drugstores or travel stores. Kinza root is used for nausea in many traditional cultures. Some women take fresh grated kinza or kinza tablets. It is possible that the pill form contains other ingredients or contaminants, so you may want to try fresh kinza first. Medications: Emetrol is the only nausea medication approved for use in . It is available over the counter and is soothing to the stomach. A prescription medication called Bendectin was available in the -1979's and was shown to be safe in , but the company stopped marketing it in the [place] due to the costs of liability coverage. Bendectin contained 10 milligrams of vitamin B6 and 10 milligrams of Doxylamine. Two tablets were given at bedtime and a total of up to 4 tablets could be used in a 24-hour period. Interestingly, Unisom , which contains a higher dose (25 mg.) of the same medication, Doxylamine, is currently marketed as an opgx-tjq-vgntphr sleeping pill. Ask your practitioner if creating a vitamin B6/Doxylamine combination with tyae-biu-urtkzpk medications would be safe for you. Prescription medications like Compazine and Phenergan can be used if the benefits outweigh possible risks, but these have not been clearly shown to be safe in . Zofran , an expensive anti-nausea medication often used to treat nausea from chemotherapy, can also be used. Can I throw up so much it harms the baby? The act of vomiting cannot hurt your fetus, which is protected inside the uterus. If you get dehydrated or develop a metabolic imbalance, this can be unhealthy. As long as you can keep down liquids, you and your baby will generally do all right. Eat when you feel able. If you are unable to keep anything down, or if you notice potential signs of dehydration such as lightheadedness, or concentrated and/or infrequent urination, call your practitioner. Some women need brief hospital admission for intravenous fluids and anti-nausea medications if their condition becomes severe. This severe form of nausea and vomiting is called Hyperemesis Gravidarum. As with many symptoms of , remind yourself that this, too, shall pass, and you'll have a wonderful baby to show for it! TREATMENT OPTIONS, SHORT VERSION: Frequent small meals Hydrate throughout day Sea-Bands wrist pressure point applicators Kinza root (powdered, in capsules) 250mg four times a day Vitamin B6 25 mg tablet three times a day Also may be taken with half a tablet of Unisom three times a day (Doxylamine 12.5 mg) If severe (weight loss, dehydration), call us and come in for IV hydration and possible medication in the form of injections. Prescription medications such as Phenergan, Compazine, Reglan Marijuana (Cannabis) July 07, 2019 This sheet talks about exposure to marijuana in and while . This information should not take the place of medical care and advice from your health care provider. What is marijuana? Marijuana, also called pot, weed, or cannabis, is a drug that comes from a plant called cannabis. Marijuana can either be smoked (inhaled) or eaten (edibles). Marijuana is an illegal substance in parts of the [place]. However, some states allow marijuana use by prescription for medical purposes, and some states allow the sale of marijuana for recreational use. The main active chemical in marijuana is ujcwp-4-mqjzwowzgulyycakrodn (THC), which is what causes you to feel high. Another major component of marijuana is cannabidiol (CBD). The U.S. Food and Drug Administration (FDA) advises against the use of CBD, THC, and marijuana in any form during a or while . What do we know about cannabidiol (CBD)? CBD use is becoming popular in [place] society and can be found in many products ranging from coffee and chocolate, to supplements and tinctures, cosmetics, lotions, suppositories, and bath salts. Studies on THC free products find that many actually contain a measurable amount of THC. Unfortunately there are no studies looking at the use of CBD during or while at this time. How much is known about the effects of marijuana on a ? It is difficult to study marijuana use during . Marijuana contains about 400 different chemicals, and some marijuana preparations can be contaminated with other drugs, pesticides, and/or fungi. Most of the older studies focus on women who inhale marijuana, not ingest (eat) it. Taking edibles might lead to higher levels of marijuana in the body. We also know that the THC in marijuana has become more potent (stronger) over the years. Therefore, studies done years ago on marijuana with lower THC levels may not accurately reflect the possible risks for current marijuana users. Some women who use marijuana during may have other risk factors such as use of alcohol, tobacco, or other drugs, medical conditions, and/or lack of care. Finally, information on the amount used and how much is used can be difficult for researchers to accurately collect. All of these factors explain why studies looking at marijuana use during sometimes find different results. I am using marijuana, but I would like to stop before becoming . How long could it stay in my body? People eliminate drugs at different rates. This is particularly true for marijuana and its metabolites (breakdown products). The way you use marijuana (inhale, ingest, topical) and how often you use it and how much you take can affect how long its metabolites can stay in your body. For some people, it might take up to 30 days for the THC metabolite to be gone from the body. I use marijuana. Can it make it harder for me to become ? Long-term use of marijuana might affect the menstrual cycle, which could make it more difficult to get . The effects on fertility appear to go away when marijuana use is stopped, or once a woman develops tolerance to the drug. Does using marijuana increase the risk for miscarriage? Miscarriage can occur in any . One study found that women who used marijuana were at an increased risk of having a miscarriage. Other studies have not confirmed this finding. Does using marijuana in the first trimester increase the chance of defects? In every , a woman starts with a 3-5% chance of having a baby with a defect. This is called her background risk. Most studies have not found an increase in the chance for defects among babies prenatally exposed to occasional marijuana use. A few studies have suggested a small increase in the chance for gastroschisis (a rare defect in which the infants intestines stick out of an opening in the abdominal wall). However, it can be difficult to draw conclusions from these studies because of the limitations outlined above. While most studies are reassuring regarding defects, without good studies among heavy marijuana users, the fact that marijuana is thought to be more potent now, and because of other potential complications it is best to avoid marijuana during . Could using marijuana in the second or third trimester cause other complications? Possibly. Similar to what is seen with cigarette smoking, smoking marijuana may increase carbon monoxide levels in the blood, which can decrease the amount of oxygen the baby receives. Some studies have suggested that among women who smoke marijuana regularly, there is an increased chance for complications such as premature , low weight, small length, small head size, and stillbirth. Babies that are born prematurely or with low weight can have higher rates of learning problems or other disabilities. In some studies, a dose-response relationship was seen, meaning the more a woman smoked, the higher her risk for these complications to occur. More research is needed to confirm if these complications are caused by the marijuana use itself, or if the women in these studies may have had other risk factors (such as smoking cigarettes). Both THC and CBD might affect how the placenta works. The placenta is the organ that grows during a and controls what can pass from mother to baby and baby to mother. Studies have also shown that THC can cross the placenta during and reach the baby s system. If I smoke marijuana in the third trimester, can it cause my baby to go through withdrawal after ? Some newborns exposed to marijuana have been reported to have temporary withdrawal-like symptoms, such as increased tremors, changes in sleeping patterns, and crying. These symptoms usually go away within 30 days. Does using marijuana in cause long-term problems in behavior or learning for the baby? Possibly. Three studies have followed children prenatally exposed to marijuana, and found that they are at higher risk for problems such as impaired executive functioning (the ability to plan, focus, remember, and multi task), impulsivity, hyperactivity, aggression, depression, and anxiety. These children were also more likely to have problems with attention (ability to pay attention), memory, and academic achievement. When these children reached adulthood, some studies suggest that they are more likely to misuse substances themselves. The problems noted here have been seen more often in children whose mothers were heavy marijuana users (smoked one or more marijuana cigarettes per day). The evidence is not conclusive and some studies report conflicting results. What happens if I use marijuana when I m ? THC has been detected in breast milk. In one recent study, researchers found that breastfed babies ingest approximately 2.5% of the mother s THC dose. The amount of time THC remains in the milk ranges from 6 days to 6 weeks. Available research has not demonstrated clear health concerns except for a possible delay in motor development (learning to crawl and walk on time) when a woman reports smoking marijuana on a daily basis. Because the baby s brain continues to develop during the time that they are being breastfed, experts are worried about the possible effects this drug may have on a nursing when a mother uses it during . Other factors to consider are possible legal implications if a breastfed baby tests positive for marijuana, the fact that there may be other contaminants (mentioned above) in the marijuana, thereby exposing the breastfed baby to other substances, and the possibility that the baby will be directly exposed to second hand smoke. Most professional organizations such as the [place] [employer] Pediatric[employer], the Academy of Medicine, and the [place] [employer] Obstetricians and Gynecologists advise that mothers avoid using marijuana. Be sure to talk to your healthcare provider about all your questions. Because marijuana can affect prolactin (a hormone that tells your body to make milk), there is a concern that frequent marijuana users may see a negative effect on the quality and quantity of milk they produce. If a man uses marijuana could it affect his fertility (ability to get partner ) or increase the chance for defects? In men, marijuana use may decrease sperm count (the number of sperm), and motility (the ability for those sperm to reach the egg). These factors could make it more difficult for a man to get his partner . These effects are thought to be temporary, and sperm function is expected to return to normal once a man stops using marijuana. In general, exposures that fathers have are unlikely to increase risks to a . For more information, please see the [employer] fact sheet Paternal Exposures and at [email or web address]/fact-she ets/pqefizit-xuqrmccij-qjilaxzuf/ pdf/. From [facility]'s Tobacco Cessation website: Our comprehensive smoking cessation program contains three main modules. These modules include the following: One-on-one weekly 30-minute counseling sessions with a respiratory therapist. Education about the various nicotine replacement therapies and medications and alternative methods used for cessation. Guidance and support; plus, we will contact your physician to obtain any required prescriptions for medications related to cessation. Insurance is accepted for this six-week program. Please check with your provider about whether your plan covers tobacco cessation programs. In the event your insurance provider does not cover your six-week smoking cessation program, we encourage you to contact us at your earliest convenience by calling . One of our friendly team members will be happy to help you with your financial plan. Contact [phone] for more information. [place] Tobacco Program Visit https://[place].quitlogix.org/en-[place]/ or call 5-338-IQWK-NOW How SMOKING Affects Your and Your Baby During Smoking during affects you and your baby's health before, during and after your baby is born. The nicotine (the addictive substance in cigarettes), carbon monoxide and numerous other poisons you inhale from a cigarette are carried through your bloodstream and go directly to your baby. Smoking while will: Lower the amount of oxygen available to you and your growing baby Increase your baby's heart rate Increase the chances of miscarriage and stillbirth Increase the risk that your baby is born prematurely and/or born with low weight Increase your baby's risk of developing respiratory problems The more cigarettes you smoke per day, the greater your baby's chances of developing these and other health problems. There is no safe level of smoking for your baby's health. How does secondhand smoke affect me and my baby? Second-hand smoke (also called passive smoke or environmental tobacco smoke) is the combination of smoke from a burning cigarette and smoke exhaled by a smoker. The smoke that barron off the end of a cigarette or cigar contains more harmful substances ( tar, carbon monoxide, nicotine and others) than the smoke inhaled by the smoker. If you are regularly exposed to second-hand smoke, you increase your and your baby's risk of developing lung cancer, heart disease, emphysema, allergies, asthma and other health problems. Babies exposed to second-hand smoke may also develop reduced lung capacity and are at higher risk for sudden infant syndrome (SIDS). What happens if I keep smoking after my baby is born? If you continue to smoke after your baby is born, you increase his or her chance of developing certain illnesses and problems, such as: Frequent colds Bronchitis and pneumonia Asthma Chronic coughs Ear infections High blood pressure Learning and behavior problems later in childhood Why should I quit smoking? Smoking is the leading cause of preventable in the [place] By quitting you can: Prolong your life Lower your risk of heart disease Lower your risk of developing lung, throat, mouth, pancreatic and bladder cancer Lower your risk of developing breathing problems such as chronic obstructive pulmonary disease (COPD), asthma and emphysema Lower your risk of developing allergies Raise your energy level Improve your appearance; your skin will wrinkle less and look better, and your fingers and teeth will not be yellow Improve your sense of smell and taste Feel healthier overall, with improved self-esteem Save a lot of money (the average smoker spends $740 a year for cigarettes!) How can I quit smoking? There is no one way to quit smoking that works for everyone, since each person has different smoking habits. Here are some tips: Hide your matches, lighters, and ashtrays. Take a deep breath and hold it for five to ten seconds whenever you get the urge to smoke. Designate your home a non-smoking area. Ask people who smoke not to smoke around you. Drink less caffeinated beverages; caffeine may stimulate your urge to smoke. Also avoid alcohol, as it also may increase your urge to smoke and can be harmful to your baby. Change your habits connected with smoking. If you smoked while driving or when feeling stressed, try other activities to replace smoking. Keep mints or gum (preferably sugarless) on hand for those times when you get the urge to smoke. Stay active to keep your mind off smoking and help relieve tension: take a walk, exercise, read a book or try a new a hobby. Look for support from others. Join a support group or smoking cessation program, such as the [facility] Smoking Cessation Program. For more information, please call . Do not go places where many people are smoking such as bars or clubs, and smoking sections of restaurants. Should I use a nicotine replacement to help me quit? Nicotine gum and patches release nicotine into the bloodstream of the smoker who is trying to quit. Although these products can reduce withdrawal symptoms and decrease cravings in smokers who are trying to quit, nicotine is quite toxic and potentially harmful to the fetus (as well as to the who is ). Therefore, these and any other products containing nicotine are not always ecommended for the woman who is trying to quit smoking. They may be prescribed in indivdual cases. How will I feel when I quit? The benefits of not smoking start within days of quitting. After you quit, you and your baby's heart beat will return to normal, and your baby will be less likely to develop breathing problems. You may have symptoms of withdrawal because your body is used to nicotine, the addictive substance in cigarettes. You may crave cigarettes, be irritable, feel very hungry, cough often, get headaches or have difficulty concentrating. The withdrawal symptoms are only temporary. They are strongest when you first quit but will go away within 10 to 14 days. When withdrawal symptoms occur, stay in control. Think about your reasons for quitting. Remind yourself that these are signs that your body is healing and getting used to being without cigarettes. Remember that withdrawal symptoms are easier to treat than the major diseases that smoking can cause. Even after the withdrawal is over, expect periodic urges to smoke. However, these cravings are generally short-lived and will go away whether you smoke or not. Don't Smoke! If you smoke again (called a relapse) do not lose hope. Seventy-five percent of those who quit relapse. Most smokers quit three times before they are successful. If you relapse, don't give up! Plan ahead and think about what you will do next time you get the urge to smoke. (This information is provided by the [facility] and is not intended to replace the medical advice of your doctor or health care provider. Please consult your health care provider for advice about a specific medical condition. For additional written health information, please call the Cancer Answer Line at [facility] Wednesday - Wednesday 8-4:30 for assistance: [phone]. Or visit [email or web address]/) documented in this encounter [facility] 07-27-2024 Note HNO ID: [id number] Author: RYLEE SCOTT APRN.SHERWIN Service: ? 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 INITIAL OB ASSESSMENT HPI: Calin is a 29 year old White here to establish Obstetrical Care. Patient's last menstrual period was 06/19/2024 (approximate). from OB Dating Form. was unplanned but accepted Complaints: No OB History T3 L3 SAB1 IAB0 Ectopic0 Multiple0 Live Births3 # 1 - Date: 02/28/12, Sex: Male, Weight: 3.629 kg (8 lb), GA: 41w1d, Type: Vaginal, Spontaneous, Apgar1: None, Apgar5: None, Living: Living, Comments: None # 2 - Date: 11/22/14, Sex: None, Weight: None, GA: 11w0d, Type: SPONTANEOUS , Apgar1: None, Apgar5: None, Living: None, Comments: Pt states she was hopitalized a few days after miscarriage for hemmorrhaging-recieved 2 units of blood # 3 - Date: 05/12/16, Sex: Female, Weight: 2.722 kg (6 lb), GA: 38w1d, Type: Vaginal, Spontaneous, Apgar1: 8, Apgar5: 9, Living: Living, Comments: spontaneous labor, + tox screen, amphetamines, 2nd degree laceration, EBL 300cc # 4 - Date: 08/05/22, Sex: Male, Weight: 2.807 kg (6 lb 3 oz), GA: 37w3d, Type: Vaginal, Spontaneous, Apgar1: 9, Apgar5: 9, Living: Living, Comments: induction for anti-E critical titer, EBL 300mL, no lacerations, loose nuchal cord x1 # 5 - Date: None, Sex: None, Weight: None, GA: None, Type: None, Apgar1: None, Apgar5: None, Living: None, Comments: None Previous history: Prior : never History of 4th degree laceration: No History of shoulder dystocia: No History of Hypertensive disorders including pre-eclampsia or gestational hypertension: No History of gestational diabetes: No Patient's Risk Screening for delivery: Have you had a prior salinas between 20w and 36w6d? No How many pregnancies have you had before? 4 Did you have a previous baby with a GBS Infection? No Please select all that apply for any prior : N/A MEDICAL/PSYCHOSOCIAL HISTORY: History of hemorrhage or bleeding concerns: Yes had hemorrhaging after miscarriage-Pt states received 2 units of blood. Denies any other bleeding issues Thyroid Disease: No History of chronic hypertension: No History of pre-existing diabetes: No ABO/RH(D) Date Value Ref Range Status 04/23/2016 O POSITIVE Final BMI 28.12 kg/(m2) Last Pap: 01/13/2022 History of abnormal pap: Yes Prior treatment for cervical dysplasia: none. Last HPV: History of STDs: chlamydia, GC, HSV, and trichomonas Partner History of STDs: None Did you have a partner with Herpes? (!) Yes-does not want discussed with FOB Tobacco use: Yes E-Cigarette/Vaping Use: Yes, 1/2 per day Caffeine use: Yes drinks 1 cup coffee and multiple sodas a day Drug use: Yes, marijuana Alcohol use: No Multivitamin with Folic acid: Yes Would refuse blood transfusion if medically necessary: No Social Needs: How often does this describe you? I don't have enough money to pay my bills: Never Within the past 12 months, have you worried that your food would run out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 Throat This is a new problem. The current episode started in the past 7 days. The problem has been gradually worsening. Neither side of throat is experiencing more pain than the other. Maximum temperature: patients reports fever but did not take temperature. The pain is moderate. Associated symptoms include diarrhea and headaches. Pertinent negatives include no abdominal pain, congestion, coughing, ear discharge, ear pain, hoarse voice, plugged ear sensation, shortness of breath, trouble swallowing or vomiting. She has had exposure to strep. She has tried nothing for the symptoms. 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 02/2020 1:4 titer, repeat 4 weeks. Patient reports FOB in shelter so cannot test him. Kayla Robb MD 03/31/16: titer is 4. Repeat titer in 4 wks. 01/09/16 - titer is 8, needs repeat titer 4 weeks, consider FOB testing - KJ February 10, 2016 Follow titers q 4 weeks, needs growth scan q [address] Hearn US report from 02/05. 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 01/09/16 - needs 3rd trimester screening - KJ History of Antoine de la Tourette's syndrome 01/06/2016 01/06/2016 Pt states she has motor ticks, head,finger, nose and eye twitching. TKRN HSV infection 01/13/2022 Marijuana smoker Tourette's disorder Trichomoniasis 01/09/2016 01/09/16 - needs JENNY & 3rd trimester screening - KJ April 29, 2016 Still positive, retreat. Kayla Robb MD PAST SURGICAL HISTORY Procedure Laterality Date COLPOSCOPY 2017 while incarcerated FINGER SURGERY HX d/t MRSA ALLERGIES Latex, Latex, and Shellfish Derived MEDICATIONS albuterol HFA (PROVENTIL HFA, VENTOLIN HFA) 90 mcg/actuation inhaler Inhale 2 Puffs as instructed every 4 hours as needed for wheezing/shortness of breath. atomoxetine (STRATTERA) 40 mg capsule Take 40 mg by mouth once daily. (Patient not taking: Reported on 10/14/2023) Norethindrone, Contraceptive, (ORTHO MICRONOR) 0.35 mg tablet Take 1 tablet by mouth once daily. (Patient not taking: Reported on 08/04/2023) busPIRone (BUSPAR) 10 mg tablet Take 1 tablet by mouth twice daily. (Patient not taking: Reported on 08/04/2023) glecaprevir-pibrentasvir (MAVYRET) 100-40 mg tablet Take 3 tablets by mouth once daily. Take with food. (Patient not taking: Reported on 08/26/2023) FAMILY HISTORY Problem Relation Age of Onset Alcohol/Drug Mother ETOH Arthritis Mother Heart Mother NH Hypertension Mother Alcohol/Drug Father ETOH Emphysema Paternal Grandmother Breast Cancer Paternal Aunt Colon Cancer No Family History Social History Tobacco Use Smoking status: Former Packs/day: .5 Types: Cigarettes Smokeless tobacco: Never Vaping Use Vaping Use: current everyday user Substances: Nicotine Substance Use Topics Alcohol use: No Drug use: Not Currently Types: Marijuana, Amphetamines, Crystal Meth Comment: 02/16/23: sober since for 14 months Review of Systems Constitutional: Positive for chills and fever. Negative for activity change, appetite change and fatigue. HENT: Positive for sore throat. Negative for congestion, ear discharge, ear pain, hoarse voice, rhinorrhea, sinus pressure, sinus pain and trouble swallowing. Eyes: Negative for discharge and redness. Respiratory: Negative for cough, chest tightness and shortness of breath. Gastrointestinal: Positive for diarrhea. Negative for abdominal pain, constipation, nausea and vomiting. Musculoskeletal: Positive for myalgias. Skin: Negative for color change. Neurological: Positive for headaches. Objective BP 106/75 Pulse 100 Temp 36.2 C (97.1 F) Resp 20 Wt 91.2 kg (201 lb) LMP 09/21/2023 (Approximate) SpO2 98% No BMI 33.90 kg/m Physical Exam Constitutional: General: She is awake. She is not in acute distress. Appearance: Normal appearance. She is normal weight. She is not ill-appearing, toxic-appearing or diaphoretic. HENT: Head: Normocephalic. Right Ear: Hearing, tympanic membrane, ear canal and external ear normal. No decreased hearing noted. No laceration, drainage, swelling or tenderness. No middle ear effusion. There is no impacted cerumen. No foreign body. No mastoid tenderness. No PE tube. No hemotympanum. Tympanic membrane is not injected, scarred, perforated, erythematous, retracted or bulging. Tympanic membrane has normal mobility. Left Ear: Hearing, tympanic membrane, ear canal and external ear normal. No decreased hearing noted. No laceration, drainage, swelling or tenderness. No middle ear effusion. There is no impacted cerumen. No foreign body. No mastoid tenderness. No PE tube. No hemotympanum. Tympanic membrane is not injected, scarred, perforated, erythematous, retracted or bulging. Tympanic membrane has normal mobility. Nose: Nose normal. No nasal deformity, septal deviation, signs of injury, laceration, nasal tenderness, mucosal edema, congestion or rhinorrhea. Right Nostril: No foreign body, epistaxis, septal hematoma or occlusion. Left Nostril: No foreign body, epistaxis, septal hematoma or occlusion. Right Turbinates: Not enlarged, swollen or pale. Left Turbinates: Not enlarged, swollen or pale. Right Sinus: No maxillary sinus tenderness or frontal sinus tenderness. Left Sinus: No maxillary sinus tenderness or frontal sinus tenderness. Mouth/Throat: Lips: No lesions. Mouth: Mucous membranes are moist. No oral lesions. Tongue: No lesions. Palate: No lesions. Pharynx: Uvula midline. Posterior oropharyngeal erythema present. No pharyngeal swelling, oropharyngeal exudate or uvula swelling. Tonsils: No tonsillar exudate or tonsillar abscesses. 1+ on the right. 1+ on the left. Eyes: General: No scleral icterus. Right eye: No discharge. Left eye: No discharge. Conjunctiva/sclera: Conjunctivae normal. Pupils: Pupils are equal, round, and reactive to light. Cardiovascular: Rate and Rhythm: Normal rate and regular rhythm. Heart sounds: Normal heart sounds, S1 normal and S2 normal. Heart sounds not distant. No murmur heard. No friction rub. No gallop. Pulmonary: Effort: Pulmonary effort is normal. No tachypnea, bradypnea, accessory muscle usage, prolonged expiration or respiratory distress. Breath sounds: Normal breath sounds. No stridor or decreased air movement. No decreased breath sounds, wheezing, rhonchi or rales. Chest: Chest wall: No tenderness. Abdominal: General: Abdomen is flat. Bowel sounds are normal. There is no distension. Palpations: Abdomen is soft. Tenderness: There is no abdominal tenderness. There is no guarding or rebound. Musculoskeletal: General: Normal range of motion. Cervical back: Normal range of motion. Lymphadenopathy: Cervical: No cervical adenopathy. Skin: General: Skin is warm and dry. Capillary Refill: Capillary refill takes less than 2 seconds. Neurological: General: No focal deficit present. Mental Status: She is alert and oriented to person, place, and time. Mental status is at baseline. Motor: No weakness. Coordination: Coordination normal. Gait: Gait normal. Psychiatric: Mood and Affect: Mood normal. Behavior: Behavior normal. Behavior is cooperative. Thought Content: Thought content normal. Judgment: Judgment normal. Assessment and Plan ASSESSMENT/PLAN: 1. URI, J06.9 - Acute onset sore throat for three days with body aches, diarrhea, and chills. - LCTA, afebrile, pharynx erythematous, tonsils 1+ no exudate - suspect viral - Group A strep molecular testing negative - Discussed supportive care treatment with fluids, rest and analgesia. - The patient may also use OTC decongestants prn and OTC cough and cold meds as needed. - STREP A MOLECULAR (POC) - Declined viral swab for COVID/influenza/rsv Andreea Nuñez TEACHING PROVIDER (Physician/PA/MD ALLERGY IMMUNOLOGY) NOTE OF PERSONAL INVOLVEMENT IN CARE: I have personally seen and examined the patient and performed the medical decision-making components. I have reviewed the Advanced Practice Registered Nurse (MD ALLERGY IMMUNOLOGY) Student's documentation and verified the findings in the note as written. Any additions or changes are noted in bold/italics. Signature: Lorena Singh Date: 10/14/2023 Time: 9:13 AM documented in this encounter [facility] 08-04-2023 History of Present illness Narrative This note was created using [employer]. Subjective Calin Graf is a 28 year old female. HPI 20-year-old female presents for cough and congestion. Patient states she has had nasal congestion, sinus pressure for the past week. She states she has had a cough for the past week as well. She states she is coughing up some phlegm. Occasionally she hears herself wheezing. She denies any history of asthma. No wheezing currently. No shortness of breath. No chest pain. She denies any fevers. States that her was recently sick with viral illness. No known exposure to COVID. No other complaint. 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 02/2020 1:4 titer, repeat 4 weeks. Patient reports FOB in shelter so cannot test him. Kayla Robb MD 03/31/16: titer is 4. Repeat titer in 4 wks. 01/09/16 - titer is 8, needs repeat titer 4 weeks, consider FOB testing - February 10, 2016 Follow titers q 4 weeks, needs growth scan q [address] Hearn US report from 02/05. 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 01/09/16 - needs 3rd trimester screening - KJ History of Antoine de la Tourette's syndrome 01/06/2016 01/06/2016 Pt states she has motor ticks, head,finger, nose and eye twitching. TKRN HSV infection 01/13/2022 Marijuana smoker Tourette's disorder Trichomoniasis 01/09/2016 01/09/16 - needs JENNY & 3rd trimester screening - April 29, 2016 Still positive, retreat. Kayla Robb MD PAST SURGICAL HISTORY Procedure Laterality Date COLPOSCOPY 2018 while incarcerated FINGER SURGERY HX d/t MRSA ALLERGIES Latex, Latex, and Shellfish Derived MEDICATIONS atomoxetine (STRATTERA) 40 mg capsule Take 40 mg by mouth once daily. amoxicillin-clavulanate potassium (AUGMENTIN) 875-125 mg per tablet Take 1 tablet by mouth two times a day for 5 days. albuterol HFA (PROVENTIL HFA, VENTOLIN HFA) 90 mcg/actuation inhaler Inhale 2 Puffs as instructed every 4 hours as needed for wheezing/shortness of breath. predniSONE (DELTASONE) 20 mg tablet Take 2 tablets by mouth once daily for 4 days. Take daily with food. Norethindrone, Contraceptive, (ORTHO MICRONOR) 0.35 mg tablet Take 1 tablet by mouth once daily. (Patient not taking: Reported on 08/04/2023) busPIRone (BUSPAR) 10 mg tablet Take 1 tablet by mouth twice daily. (Patient not taking: Reported on 08/04/2023) glecaprevir-pibrentasvir (MAVYRET) 100-40 mg tablet Take 3 tablets by mouth once daily. Take with food. FAMILY HISTORY Problem Relation Age of Onset Alcohol/Drug Mother ETOH Arthritis Mother Heart Mother [place] Hypertension Mother Alcohol/Drug Father ETOH Emphysema Paternal Grandmother Breast Cancer Paternal Aunt Colon Cancer No Family History Social History Tobacco Use Smoking status: Former Packs/day: .5 Types: Cigarettes Smokeless tobacco: Never Vaping Use Vaping Use: current everyday user Substances: Nicotine Substance Use Topics Alcohol use: No Drug use: Not Currently Types: Marijuana, Amphetamines, Crystal Meth Comment: 02/16/23: sober since for 14 months Review of Systems Constitutional: Negative for chills and fever. HENT: Positive for congestion and sinus pressure. Negative for ear pain and sore throat. Respiratory: Positive for cough and wheezing. Negative for shortness of breath. Cardiovascular: Negative for chest pain. Gastrointestinal: Negative for diarrhea and vomiting. Objective BP 116/62 Pulse 89 Temp 36.1 C (97 F) Resp 16 Wt 94.8 kg (209 lb) LMP 11/16/2021 (Approximate) SpO2 98% BMI 35.25 kg/m Physical Exam Vitals and nursing note reviewed. Constitutional: General: She is not in acute distress. Appearance: Normal appearance. She is not toxic-appearing. HENT: Right Ear: Tympanic membrane and ear canal normal. Left Ear: Tympanic membrane and ear canal normal. Nose: Congestion present. No nasal tenderness. Right Sinus: No maxillary sinus tenderness or frontal sinus tenderness. Left Sinus: No maxillary sinus tenderness or frontal sinus tenderness. Mouth/Throat: Mouth: Mucous membranes are moist. Pharynx: No oropharyngeal exudate or posterior oropharyngeal erythema. Eyes: Conjunctiva/sclera: Conjunctivae normal. Cardiovascular: Rate and Rhythm: Normal rate and regular rhythm. Pulmonary: Effort: Pulmonary effort is normal. Breath sounds: Normal breath sounds. Neurological: Mental Status: She is alert. Assessment and Plan ASSESSMENT/PLAN: 1. Sinobronchitis - ICD9: 473.9, 490, ICD10: J32.9, J40 (primary diagnosis) - Will begin treatment with Augmentin 875 mg PO BID for 5 days - Supportive care with plenty of fluids, rest, and analgesia prn. -Rx for prednisone. Rx for albuterol inhaler. No current wheezing on exam, but patient states she has been wheezing at home. 2. URI, acute - ICD9: 465.9, ICD10: J06.9 - Discussed viral etiology and rationale for treatment. - Symptomatic treatment with prn analgesia - Supportive care with fluids and rest -Declines COVID/flu/RSV swab Diagnosis and treatment plan were discussed and questions were answered to the patient's satisfaction. Pt acknowledged understanding of concepts and follow up plan. Specific signs and symptoms that would indicate the need for higher level of care were discussed in detail warranting prompt ER evaluation. WELLINGTON Schneider documented in this encounter [facility] 01-20-2023 Miscellaneous Notes Reason: Patient calling with concerns on what medication she can take for a headache while taking medications prescribed my her funeral pre arrangement specialist. Outcome: Patient offered triage and patient declined Conferenced to [facility] for further advisement. GO TO THE EMERGENCY ROOM OR CALL 911 IF: * You develop any new symptoms If you have any questions, you can call Nurse certifed refrigeration operator back. documented in this encounter [facility] 01-08-2023 Miscellaneous Notes ok to schedule. Thanks. Kayla Robb MD See mychart message from earlier today. Pt is wanting to discuss Nexplanon. Message left about scheduling appt. Tonya Michelle LPN Patient viewed [facility] message that a new control medication was sent in d/t her Hepatitis treatment. There was not a new one sent in today. Only active rx is Apri which she has been taking. Did she need a different OCP? Or does she have to change the form of control all together? If she does she wants Mirena, but would rather stay with OCP if possible. Ynes Jones RN documented in this encounter [facility] 01-07-2023 Miscellaneous Notes Pt notified of reason for medication change. Tonya Michelle LPN documented in this encounter [facility] 01-05-2023 Miscellaneous Notes Approved through Medicaid for Hep C treatment with 8 wks Mavyret. Patient to call when receives medication to review protocol and follow up, urine test before starting. Ships through [facility] Requested Prescriptions Pending Prescriptions Disp Refills glecaprevir-pibrentasvir (MAVYRET) 100-40 mg tablet 84 tablet 1 Sig: Take 3 tablets by mouth once daily. Take with food. Sarai Sanches CMA documented in this encounter [facility] 12-23-2022 Miscellaneous Notes 2nd request to patient to obtain card copy with IMVU, to submit for Hep C tx Sarai Sanches CMA documented in this encounter [facility] 12-02-2022 Miscellaneous Notes Last seen 09/09/22. PCP appointment to establish is not until February. Requested Prescriptions Pending Prescriptions Disp Refills escitalopram oxalate (LEXAPRO) 10 mg tablet 30 tablet 1 Sig: Take 1 tablet by mouth once daily. Lachelle Bean RN documented in this encounter [facility] 11-27-2022 History of Present illness Narrative Patient fasting for 3 hours:Yes Any implanted devices:No Possibility of :No Fibroscan was performed on November 27, 2022, by Kendra Garcia RN and results are interpreted by Rema kumar Diagnosis: Hepatitis C Please refer to get images report for individual readings Number of readings: 10 IQR %: 21% E (kpa): 3.7 CAP: 238 Impression The reading was adequate. FS=3.7 kPA. The CAP score is 238 and corresponds to steatosis grade of S1. This reading corresponds: A 93% chance of stage 0-2 fibrosis A 7% chance of stage 3-4 fibrosis (advanced fibrosis) A <1% chance of stage 4 fibrosis (cirrhosis). Rema Kumar, PA-Farhana Hepatitis C Fibroscan Fibrosis Risk <7 kPA = F0-F2 93%, F3+F4 7%, F4 <1% <10 kPA = F0-F2 88%, F3+F4 12%, F4 1.7% 10-15 kPA = F0-F2 43%, F3+F4 58%, F4 20% >15 kPA = F0-F2 16%, F3+F4 84%, F4 63% Grade CAP value up to 237 dB/M corresponds to S0 (< 10 % Fat) CAP value between (238 - 258 dB/M) corresponds to S1 (>/= 11 % Fat) CAP value between (259 - 289 dB/M) corresponds to S2 (>/= 33 % Fat) CAP value > 290dB/M corresponds to S3 (>/= 67 % Fat) stage 0 ( S0:< 10 % steatosis) stage 1 (>/= S1: 11%-33% steatosis) stage 2 (>/= S2: 34%-66% steatosis) stage 3 (>/= S3: > 66% steatosis) Reference Robin Y, Bj Q, Robin T, Vero J, Robin H, Angel Luis T. Controlled attenuation parameter for assessment of hepatic steatosis grades: a diagnostic meta-analysis. Int J Clin Exp Med. 2015 Jun 15;8(10):11956-01. PMID: 27377338; PMCID: [id number]. Ana Harris, David LONGORIA, Demetrice Harris, Constance F, Lukasz J, Chester O, Jenae F, Yuliana M, Maverick G, Jones A, Josiah E, Judd L, Korin G, Fernando A, Vianney U, Vera S, Lauren P, José Luis V, de Bhavna V, Beena M, Michelle LONG. Refining the Baveno elastography criteria for the definition of compensated advanced chronic liver disease. J Hepatol. 2020;74(5):2499-7737. doi: 10.1016/j.jhep.2020.11.050. Epub 2019Aug 14. PMID: 61047047. documented in this encounter [facility] 10-27-2022 History of Present illness Narrative Radiology Service Progress Note PATIENT NAME: Calin Graf DATE OF SERVICE: October 27, 2022 TIME: 1:10 PM PATIENT IDENTITY VERIFICATION COMPLETED USING TWO (2) IDENTIFIERS: Name and Date of confirmed by patient verbally. FALL SCREENING: Has the patient had 2 falls in the last year or 1 fall with injury or currently using an Ambulatory Assistive Device (Walker, Cane, Wheelchair, Crutches, etc.)? No PATIENT GENDER DATA: Female. status: : No status: NO. PATIENT RELEVANT IMPLANT DATA REVIEWED: Not Applicable RADIOLOGY DEPARTMENT: Ultrasound PERIPHERAL IV DATA: Not applicable SIGNED BY: Felisha Frey RDMS October 27, 2022 1:10 PM documented in this encounter [facility] 09-09-2022 History of Present illness Narrative VISIT Calin Graf is a 27 year old year old here for visit. Delivery Summary: ROS/ Recovery: Feeding: Bottle feeding problems: n/a Menses since delivery: light flow Menstrual pattern prior to : Regular periods Hayes since delivery: Not resumed Depression: denies symptoms of depression. OB Depression and Anxiety Screening- This Encounter (since 09/08/2022) Over the past 2 weeks have you felt down, depressed, or hopeless? Negative Over the past two weeks, have you felt little interest or pleasure in doing things? Negative Feeling nervous, anxious or on edge 3-Nearly every day Not being able to stop or control worrying 3-Nearly every day Anxiety Pre-Screening Total (If >/= 3 additional questions will be reviewed) 6 Worrying too much about different things 3-Nearly every day Trouble relaxing 3-Nearly every day Being so restless that it is hard to sit still 1-Several days Becoming easily annoyed or irritable 3-Nearly every day Feeling afraid, as if something awful might happen 3-Nearly every day Anxiety (HERNANDEZ) Full Screening Total 19 Denies thoughts of harming self or others. Has some support at home. In counseling. Was on meds in past but was using then and doesn't remember what helped and what didn't. 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 01/09/16 - needs 3rd trimester screening - KJ HSV infection 01/13/2022 Marijuana smoker Tourette's disorder Trichomoniasis 01/09/2016 01/09/16 - needs JENNY & 3rd trimester screening - KJ April 29, 2016 Still positive, retreat. Kayla Robb MD PAST SURGICAL HISTORY Procedure Laterality Date COLPOSCOPY 2018 while incarcerated FINGER SURGERY HX d/t MRSA FAMILY HISTORY Problem Relation Age of Onset Alcohol/Drug Mother ETOH Arthritis Mother Heart Mother NH Hypertension Mother Alcohol/Drug Father ETOH Emphysema Paternal Grandmother Breast Cancer Paternal Aunt Social History Tobacco Use Smoking status: Former Packs/day: 0.50 Types: Cigarettes Smokeless tobacco: Never Vaping Use Vaping Use: current everyday user Substances: Nicotine Substance Use Topics Alcohol use: No Drug use: Not Currently Types: Marijuana, Amphetamines, Crystal Meth Comment: sober since 07/28/17 PHYSICAL EXAMINATION: BP 102/64 Ht 5' 4 (1.63m) Wt 170 lb (77.1kg) LMP 11/16/2021 BMI 29.17 kg/(m^2). GENERAL: pleasant, female in no apparent distress HEENT: Normocephalic, atraumatic, mucus membranes moist, and no lesions NECK: Supple, full range of motion, no adenopathy, and thyroid normal DERMATOLOGY: Normal, without lesions, non-icteric, and non-hirsute BREAST: soft, non-tender, symmetric, no dominant mass, normal nipple-areolar complex, no lymphadenopathy, and no nipple discharge CHEST: Normal inspiratory effort ABDOMEN: soft, non-tender, and no masses. INCISION: N/A PELVIC: external genitalia normal, normal Bartholin's glands, urethra, [place]'s glands, no vulvar lesions, no cervical lesions, good vaginal support, physiologic discharge present, normal appearing perineal body and perianal region BIMANUAL: uterus normal size, shape and consistency, no adnexal masses, and non-tender NEURO: alert and oriented x3,exam grossly non-focal EXTREMITIES: normal ASSESSMENT AND PLAN: 27 year old status post with normal course. Contraception plan: Oral contraceptives Follow up: RTC for annual exams and PRN Not interested in LARC Has f/u w/ hepatology for hep c in treatement for substance use disorder, has counseling trial SSRI for anxiety/depression. Has appointment to establish with PCP but not until February. D/w her I will treat if she responds well until she can get in w/ them, if not may need to have her see pshychiatry. No STI screen today- moderate blood in vault. Kayla Robb MD documented in this encounter [facility] 08-12-2022 History of Present illness Narrative EARLY VISIT Calin Graf is a 27 year old here for 1 week visit. Delivery Summary: ROS: General: Denies any fever or chills Hypertension Screening: Headache? No. Visual Changes? No Epigastric Pain? No Increased Swelling? No Taking any BP medications at home? No If applicable, monitoring BP at home? (If Yes, include results) NA Mood: normal Depression: denies symptoms of depression. OB Depression and Anxiety Screening- This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 in screenings for chromosomal abnormalities and certain defects during a . The sequential screen combinesultrasound and blood tests to determine the risk of chromosomal abnormalities, including Down's Syndrome (Trisomy 21) and Trisomy 18, as well as open neural tube defects including spina bifida. Ultrasound examination is performed between 11 weeks and 13 weeks gestational age. Blood tests are drawn after the ultrasound and again later in the between 15 and 21 weeks gestational age. Please let your physician know if you are interested in this testing. It will require an appointment withour nitriles lab technician. This is not an ultrasound performed by a physician in our office during a routine visit. SIGNS AND SYMPTOMS OF LABOR 1. Contractions every 10 minutes or more often 2. Clear, pink, or brownish fluid (water) leaking from vagina 3. Feeling that baby is pushing down, pressure 4. Low, dull backache 5. Cramps that feel like a period 6. Cramps with or without diarrhea If you notice any of the above symptoms, contact our office at [phone] and ask to speak with anurse. After hours, you can call doctors registry at [phone] OR call [facility] at [phone] ask to have the doctor database administration manager paged. If you consider this an emergency, dial 9--1 or go to your nearest emergency department. NEED HELP? Are you dealing with a violent or abusive relationship? Are you a victim of rape or sexual assult? Call [facility] [place] ([place]) 24 hour Crisis Hotline: 793.268.9018 or 351-168-4682. MANUAL Your Guide to a Healthy manual is now on-line. Visit [email or web address] to download your free copy documented in this encounterMercy Health St. [facility]05-13-2022 Miscellaneous Notes* Telephone Encounter - Lachelle Bean RN - 01/16/2022 9:22 AM EDT Patient did not call back to let the office know when she can come in for a nurse visit for Rocephin. Patient has an OB visit on 01/20/22. Appointment note made if she doesn't call back today. Left message for patient to call office. Lachelle Bean RN * Telephone Encounter - Lachelle Bean RN - 01/14/2022 10:15 AM EDT Patient notified of all results. Ultrasound appointment scheduled for 01/20/22 at OB visit. Patient aware that she needs to come in for Rocephin. Unsure if she can come in today. Asked that she call us back and let us know when she can come for Rocephin. Health Dept Notification Faxed. Lachelle Bean RN * Telephone Encounter - Kayla Robb MD - 01/13/2022 5:03 PM EDT We also need to let her know that her pap showed changes consistent w/ herpes. I would recommend that she have HSV titers to help us type this. She will need prophylaxis at 36 weeks. Also, if any symptoms she should let us know. Has she been treated for gonorrhea yet? She has appointment next week.A formal US for dates was ordered but I don't see it scheduled. Please schedule that as well. Thanks. Kayla Robb MD * Telephone Encounter - Ynes Jones RN - 01/12/2022 10:14 AM EDT Left message for patient to call office. Health dept form now in phone nurse room. Ynes Jones RN * Telephone Encounter - Lachelle Bean RN - 01/09/2022 9:36 AM EDT Left message for patient to call office. Health Department form at nurse desk. Lachelle Bean RN * Telephone Encounter - Lachelle Bean RN - 01/09/2022 9:36 AM EDT ----- Message from Kayla Robb MD sent at 01/09/2022 8:44 AM EDT ----- Notify patient she needs treated for gonorrhea. Needs rescreened in 3 months. Partner(s) need treated. Order in. Kayla Robb MD documented in this encounterMer[facility] Health [facility]04-29-[facility]22 History of Present illness Narrative* Kayla Robb MD - 01/02/2022 10:24 AM EDT INITIAL OB ASSESSMENT OB Provider: Kayla Robb MD HPI: Calin Graf is a 26 year old female here to establish Obstetrical Care. Patient's last menstrual period was 11/07/2021. from OB Dating Form. Cycle length: 28-30 days Complaints: None was unplanned but accepted. OB History T2 L2 SAB1 IAB0 Ectopic0 Multiple0 Live Births2 Prior : never History of 4th degree laceration: No Patient's Risk Screening for delivery: History of abnormal pap: no Prior treatment for cervical dysplasia: none. 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 Patient BMI over 30? 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 acidophilus-L. rhamnosus 15 billion cell cap Take 1 capsule by mouth once daily. FLORAJEN WOMEN.If on antibiotic, take at least 1-2 hours before or after antibiotic. KEEP REFRIGERATED Desogestrel-Ethinyl Estradiol (APRI) 0.15-0.03 mg per tablet Take 1 tablet by mouth once daily. No current facility-administered medications on file prior to visit. Review of Systems: GENERAL: Negative for: Fever or Chills HEENT: Negative for: Headache, Impaired Vision, Ringing in Ears, Nosebleeds NECK: Negative for: Swelling, Pain, Stiffness RESPIRATORY: Negative for: Cough, Shortness of breath, Wheezing GASTROINTESTINAL: Negative for: Heartburn, Constipation, Diarrhea, Blood in stool, Vomiting MUSCULOSKELETAL: Negative for: Muscle or joint pain, stiffness, Joint swelling NEUROLOGIC/PSYCHIATRIC: Negative for: Weakness, Paralysis, Numbness, Tingling, Tremor, Memory loss,some anxiety and depression- has been worse latealy SKIN: Negative for: Rash, Itching GENITOURINARY: Negative for: vaginal itching, vaginal discharge, hematuria or dysuria PHYSICAL EXAM: LMP 11/07/2021 GENERAL: pleasant female in no apparent distress DERMATOLOGY: Normal, without lesions, non-icteric and non-hirsute NECK: Supple, full range of motion, no adenopathy and thyroid normal CHEST: Normal inspiratory effort BREAST: soft, non-tender, symmetric, no dominant mass, normal nipple-areolar complex, no lymphadenopathy and no nipple discharge ABDOMEN: soft, non-tender and no masses NEURO: alert and oriented x3,exam grossly non-focal PELVIS: External genitalia normal without lesions. Perineal body intact. No vaginal or cervical lesions. Cervix closed. Uterus 6 week size. No adnexal masses or tenderness. Clinical Pelvimetry: Pelvimetry clinically assessed as adequate Limited OB ultrasound exam: not performed, single intrauterine and gestational sac noted w/ yolk sac and perhaps small embryonic pole` OB Risk Screening: Completed, no positive findings documented. ASSESSMENT: 26 year old at approx 4-5 weeks gestational age PLAN: 1) Patient oriented to practice. Discussed nutrition, folic acid supplementation, dietary guidelines, exercise, smoking, alcohol, caffeine, and drug use. Discussed routine OB labs including STD/HIV. Patient declines all aneuploidy screening. CF carrier screening discussed and declined. 2) h/o drug use, verbal consent for a tox screen today obtained 3) US for dates ordered h/o mood disorder, can't remember what she has been on in the past. Recommend reestablish w/ counseling center. Follow up in 3 weeks or sooner prn. h/o HCV, get a quant h/o anti E antibody Kayla Robb MD documented in this encounterMer[facility]04[facility]29-2022 Instructions* Patient Instructions* Vicki Garcia LPN - 01/02/2022 10:24 AM EDT Please select the following link to access the [facility] Your Guide to a Healthy . [email or web address] documented in this encounterMercy Health St. [facility]04-28-2022 Miscellaneous Notes* Telephone Encounter - Ynes Jones RN - 01/01/2022 2:08 PM EDT Patient called back. No further PNOB available today. She will come in 20 min early for NOB appointment tomorrow with RR. Ynes Jones RN * Telephone Encounter - Makayla Workman RN - 01/01/2022 10:14 AM EDT Left message for patient to return phone call. Was unable to reach patient after several attempts for telephone PNOB documented in this encounterMercy Health St. [facility]04-19-2022 Miscellaneous Notes* Telephone Encounter - Ynes Jones RN - 12/23/2021 1:08 PM EDT PNOB scheduled. Ynes Jones RN * Telephone Encounter - Makayla Workman RN - 12/23/2021 12:59 PM EDT Left message for patient to return phone call. Patient has an appointment with Dr Robb for NOB appointment. Please schedule PNOB appointment. documented in this encounterMercy Health St. 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 MH 01/09/16 - needs 3rd trimester screening - KJ Trichomoniasis 01/09/2016 01/02/2022 Overview: 01/09/16 - needs JENNY & 3rd trimester screening - KJ April 29, 2016 Still positive, retreat. Kayla Robb MD Late care affecting 6 01/02/2022 Overview: 01/09/16 - EDC slightly different based on dating US but less than 2 weeks so will not change EDC, plan for repeat US in 4 weeks - KJ 01/06/2016Pt is approximately 21 weeks . She has not had care prior to today. Pt is in senior care and and due to get out in March. FOB is involved. He is not the father of her previous child. Patient's maternal grandmother has custody of her other child. TKRN Pelvic pain in 01/06/2016 022 Overview: 01/07/2016Patient has noted pelvic cramping on a pain scale of 4 when she gets up from a standing position and moves in bed.She denies any bleeding. Discussed with Sylvie. Pt reassured . Pt states she is not concerned about the pain and thinks it is growing pains. Appt tomorrow with M.D. To call/come in if bleeding develops, pain worsens or PRN problems. Ultrasound ordered by Sylvie Champion MANAGER PAPER.TKRN Quit smoking 01/06/2016 04/29/2016 Overview: 03/27/16: pt still smoking cigarettes 01/06/2016Pt recently quit smoking 12/24/2015. Discussed risks of smoking during and advised pt to continue not smoking.TKRN documented as of this encounter (statuses as of 01/02/2022) 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 01/09/16 - needs 3rd trimester screening - [facility]J Trichomoniasis 01/09/2016 01/02/2022 Overview: 01/09/16 - needs J[facility] & 3rd trimester screening - KJ April 29, 2016 Still positive, retreat. Kayla Robb MD Late care affecting 6 01/02/2022 Overview: 01/09/16 - EDC slightly different based on dating US but less than 2 weeks so will not change EDC, plan for repeat US in 4 weeks - KJ 01/06/2016Pt is approximately 21 weeks . She has not had care prior to today. Pt is in senior care and and due to get out in March. FOB is involved. He is not the father of her previous child. Patient's maternal grandmother has custody of her other child. TKRN Pelvic pain in 01/06/2016 022 Overview: 01/07/2016Patient has noted pelvic cramping on a pain scale of 4 when she gets up from a standing position and moves in bed.She denies any bleeding. Discussed with Sylvie. Pt reassured . Pt states she is not concerned about the pain and thinks it is growing pains. Appt tomorrow with M.D. To call/come in if bleeding develops, pain worsens or PRN problems. Ultrasound ordered by Sylvie Champion NP.TKRN Quit smoking 01/06/2016 04/29/2016 Overview: 03/27/16: pt still smoking cigarettes 01/06/2016Pt recently quit smoking 12/24/2015. Discussed risks of smoking during and advised pt to continue not smoking.TKRN documented as of this encounter (statuses as of 01/20/2022) 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 MH 01/09/16 - needs 3rd trimester screening - KJ Trichomoniasis 01/09/2016 01/02/2022 Overview: 01/09/16 - needs JENNY & 3rd trimester screening - KJ April 29, 2016 Still positive, retreat. Kayla Robb MD Late care affecting 6 01/02/2022 Overview: 01/09/16 - EDC slightly different based on dating US but less than 2 weeks so will not change EDC, plan for repeat US in 4 weeks - KJ 01/06/2016Pt is approximately 21 weeks . She has not had care prior to today. Pt is in senior care and and due to get out in March. FOB is involved. He is not the father of her previous child. Patient's maternal grandmother has custody of her other child. TKRN Pelvic pain in 01/06/2016 022 Overview: 01/07/2016Patient has noted pelvic cramping on a pain scale of 4 when she gets up from a standing position and moves in bed.She denies any bleeding. Discussed with Sylvie. Pt reassured . Pt states she is not concerned about the pain and thinks it is growing pains. Appt tomorrow with M.D. To call/come in if bleeding develops, pain worsens or PRN problems. Ultrasound ordered by Sylvie Champion MANAGER PAPER.TKRN Quit smoking 01/06/2016 04/29/2016 Overview: 03/27/16: pt still smoking cigarettes 01/06/2016Pt recently quit smoking 12/24/2015. Discussed risks of smoking during and advised pt to continue not smoking.TKRN documented as of this encounter (statuses as of 01/20/2022) 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 MH 01/09/16 - needs 3rd trimester screening - KJ Trichomoniasis 01/09/2016 01/02/2022 Overview: 01/09/16 - needs [facility] & 3rd trimester screening - KJ April 29, 2016 Still positive, retreat. Kayla Robb MD Late care affecting 6 01/02/2022 Overview: 01/09/16 - EDC slightly different based on dating US but less than 2 weeks so will not change EDC, plan for repeat US in 4 weeks - KJ 01/06/2016Pt is approximately 21 weeks . She has not had care prior to today. Pt is in senior care and and due to get out in March. FOB is involved. He is not the father of her previous child. Patient's maternal grandmother has custody of her other child. TKRN Pelvic pain in 01/06/2016 022 Overview: 01/07/2016Patient has noted pelvic cramping on a pain scale of 4 when she gets up from a standing position and moves in bed.She denies any bleeding. Discussed with Sylvie. Pt reassured . Pt states she is not concerned about the pain and thinks it is growing pains. Appt tomorrow with M.D. To call/come in if bleeding develops, pain worsens or PRN problems. Ultrasound ordered by Sylvie Champion MANAGER PAPER.TKRN Quit smoking 01/06/2016 04/29/2016 Overview: 03/27/16: pt still smoking cigarettes 01/06/2016Pt recently quit smoking 12/24/2015. Discussed risks of smoking during and advised pt to continue not smoking.TKRN documented as of this encounter (statuses as of 01/22/2022) 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 01/09/16 - needs 3rd trimester screening - [facility] Trichomoniasis 01/09/2016 01/02/2022 Overview: 01/09/16 - needs [facility] & 3rd trimester screening - KJ April 29, 2016 Still positive, retreat. Kayla Robb MD Late care affecting 6 01/02/2022 Overview: 01/09/16 - EDC slightly different based on dating US but less than 2 weeks so will not change EDC, plan for repeat US in 4 weeks - KJ 01/06/2016Pt is approximately 21 weeks . She has not had care prior to today. Pt is in senior care and and due to get out in March. FOB is involved. He is not the father of her previous child. Patient's maternal grandmother has custody of her other child. TKRN Pelvic pain in 01/06/2016 022 Overview: 01/07/2016Patient has noted pelvic cramping on a pain scale of 4 when she gets up from a standing position and moves in bed.She denies any bleeding. Discussed with Sylvie. Pt reassured . Pt states she is not concerned about the pain and thinks it is growing pains. Appt tomorrow with M.D. To call/come in if bleeding develops, pain worsens or PRN problems. Ultrasound ordered by Sylvie Champion MANAGER PAPER.TKRN Quit smoking 01/06/2016 04/29/2016 Overview: 03/27/16: pt still smoking cigarettes 01/06/2016Pt recently quit smoking 12/24/2015. Discussed risks of smoking during and advised pt to continue not smoking.TKRN documented as of this encounter (statuses as of 02/10/2022) 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 5/5/16 - needs 3rd trimester screening - KJ Trichomoniasis 01/09/2016 01/02/2022 Overview: 01/09/16 - needs [facility] & 3rd trimester screening - KJ April 29, 2016 Still positive, retreat. Kayla Robb MD Late care affecting 6 01/02/2022 Overview: 01/09/16 - EDC slightly different based on dating US but less than 2 weeks so will not change EDC, plan for repeat US in 4 weeks - KJ 01/06/2016Pt is approximately 21 weeks . She has not had care prior to today. Pt is in senior care and and due to get out in March. FOB is involved. He is not the father of her previous child. Patient's maternal grandmother has custody of her other child. TKRN Pelvic pain in 01/06/2016 022 Overview: 01/07/2016Patient has noted pelvic cramping on a pain scale of 4 when she gets up from a standing position and moves in bed.She denies any bleeding. Discussed with Sylvie. Pt reassured . Pt states she is not concerned about the pain and thinks it is growing pains. Appt tomorrow with M.D. To call/come in if bleeding develops, pain worsens or PRN problems. Ultrasound ordered by Sylvie Champion MANAGER PAPER.TKRN Quit smoking 01/06/2016 04/29/2016 Overview: 03/27/16: pt still smoking cigarettes 01/06/2016Pt recently quit smoking 12/24/2015. Discussed risks of smoking during and advised pt to continue not smoking.TKRN documented as of this encounter (statuses as of 02/17/2022) 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 01/09/16 - needs 3rd trimester screening - KJ Trichomoniasis 01/09/2016 01/02/2022 Overview: 01/09/16 - needs [facility] & 3rd trimester screening - KJ April 29, 2016 Still positive, retreat. Kayla Robb MD Late care affecting 6 01/02/2022 Overview: 01/09/16 - EDC slightly different based on dating US but less than 2 weeks so will not change EDC, plan for repeat US in 4 weeks - KJ 01/06/2016Pt is approximately 21 weeks . She has not had care prior to today. Pt is in senior care and and due to get out in March. FOB is involved. He is not the father of her previous child. Patient's maternal grandmother has custody of her other child. TKRN Pelvic pain in 01/06/2016 022 Overview: 01/07/2016Patient has noted pelvic cramping on a pain scale of 4 when she gets up from a standing position and moves in bed.She denies any bleeding. Discussed with Sylvie. Pt reassured . Pt states she is not concerned about the pain and thinks it is growing pains. Appt tomorrow with M.D. To call/come in if bleeding develops, pain worsens or PRN problems. Ultrasound ordered by Sylvie Champion MANAGER PAPER.TKRN Quit smoking 01/06/2016 04/29/2016 Overview: 03/27/16: pt still smoking cigarettes 01/06/2016Pt recently quit smoking 12/24/2015. Discussed risks of smoking during and advised pt to continue not smoking.TKRN documented as of this encounter (statuses as of 02/17/2022) 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 MH 01/09/16 - needs 3rd trimester screening - KJ Trichomoniasis 01/09/2016 01/02/2022 Overview: 01/09/16 - needs J[facility] & 3rd trimester screening - KJ April 29, 2016 Still positive, retreat. Kayla Robb MD Late care affecting 6 01/02/2022 Overview: 01/09/16 - EDC slightly different based on dating US but less than 2 weeks so will not change EDC, plan for repeat US in 4 weeks - KJ 01/06/2016Pt is approximately 21 weeks . She has not had care prior to today. Pt is in senior care and and due to get out in March. FOB is involved. He is not the father of her previous child. Patient's maternal grandmother has custody of her other child. TKRN Pelvic pain in 01/06/2016 022 Overview: 01/07/2016Patient has noted pelvic cramping on a pain scale of 4 when she gets up from a standing position and moves in bed.She denies any bleeding. Discussed with Sylvie. Pt reassured . Pt states she is not concerned about the pain and thinks it is growing pains. Appt tomorrow with M.D. To call/come in if bleeding develops, pain worsens or PRN problems. Ultrasound ordered by Sylvie Champion MANAGER PAPER.TKRN Quit smoking 01/06/2016 04/29/2016 Overview: 03/27/16: pt still smoking cigarettes 01/06/2016Pt recently quit smoking 12/24/2015. Discussed risks of smoking during and advised pt to continue not smoking.TKRN documented as of this encounter (statuses as of 02/18/2022) 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 MH 01/09/16 - needs 3rd trimester screening - KJ Trichomoniasis 01/09/2016 01/02/2022 Overview: 01/09/16 - needs [facility] & 3rd trimester screening - KJ April 29, 2016 Still positive, retreat. Kayla Robb MD Late care affecting 6 01/02/2022 Overview: 01/09/16 - EDC slightly different based on dating US but less than 2 weeks so will not change EDC, plan for repeat US in 4 weeks - KJ 01/06/2016Pt is approximately 21 weeks . She has not had care prior to today. Pt is in senior care and and due to get out in March. FOB is involved. He is not the father of her previous child. Patient's maternal grandmother has custody of her other child. TKRN Pelvic pain in 01/06/2016 022 Overview: 01/07/2016Patient has noted pelvic cramping on a pain scale of 4 when she gets up from a standing position and moves in bed.She denies any bleeding. Discussed with Sylvie. Pt reassured . Pt states she is not concerned about the pain and thinks it is growing pains. Appt tomorrow with M.D. To call/come in if bleeding develops, pain worsens or PRN problems. Ultrasound ordered by Sylvie Champion NP.TKRN Quit smoking 01/06/2016 04/29/2016 Overview: 03/27/16: pt still smoking cigarettes 01/06/2016Pt recently quit smoking 12/24/2015. Discussed risks of smoking during and advised pt to continue not smoking.TKRN documented as of this encounter (statuses as of 02/19/2022) 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 MH 01/09/16 - needs 3rd trimester screening - KJ Trichomoniasis 01/09/2016 01/02/2022 Overview: 01/09/16 - needs [facility] & 3rd trimester screening - KJ April 29, 2016 Still positive, retreat. Kayla Robb MD Late care affecting 6 01/02/2022 Overview: 01/09/16 - EDC slightly different based on dating US but less than 2 weeks so will not change EDC, plan for repeat US in 4 weeks - KJ 01/06/2016Pt is approximately 21 weeks . She has not had care prior to today. Pt is in senior care and and due to get out in March. FOB is involved. He is not the father of her previous child. Patient's maternal grandmother has custody of her other child. TKRN Pelvic pain in 01/06/2016 022 Overview: 01/07/2016Patient has noted pelvic cramping on a pain scale of 4 when she gets up from a standing position and moves in bed.She denies any bleeding. Discussed with Sylvie. Pt reassured . Pt states she is not concerned about the pain and thinks it is growing pains. Appt tomorrow with M.D. To call/come in if bleeding develops, pain worsens or PRN problems. Ultrasound ordered by Sylvie Champion MANAGER PAPER.TKRN Quit smoking 01/06/2016 04/29/2016 Overview: 03/27/16: pt still smoking cigarettes 01/06/2016Pt recently quit smoking 12/24/2015. Discussed risks of smoking during and advised pt to continue not smoking.TKRN documented as of this encounter (statuses as of 03/02/2022) 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 01/09/16 - needs 3rd trimester screening - KJ Trichomoniasis 01/09/2016 01/02/2022 Overview: 01/09/16 - needs [facility] & 3rd trimester screening - KJ April 29, 2016 Still positive, retreat. Kayla Robb MD Late care affecting 6 01/02/2022 Overview: 01/09/16 - EDC slightly different based on dating US but less than 2 weeks so will not change EDC, plan for repeat US in 4 weeks - KJ 01/06/2016Pt is approximately 21 weeks . She has not had care prior to today. Pt is in senior care and and due to get out in March. FOB is involved. He is not the father of her previous child. Patient's maternal grandmother has custody of her other child. TKRN Pelvic pain in 01/06/2016 022 Overview: 01/07/2016Patient has noted pelvic cramping on a pain scale of 4 when she gets up from a standing position and moves in bed.She denies any bleeding. Discussed with Sylvie. Pt reassured . Pt states she is not concerned about the pain and thinks it is growing pains. Appt tomorrow with M.D. To call/come in if bleeding develops, pain worsens or PRN problems. Ultrasound ordered by Sylvie Champion MANAGER PAPER.TKRN Quit smoking 01/06/2016 04/29/2016 Overview: 03/27/16: pt still smoking cigarettes 01/06/2016Pt recently quit smoking 12/24/2015. Discussed risks of smoking during and advised pt to continue not smoking.TKRN documented as of this encounter (statuses as of 03/17/2022) 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 01/09/16 - needs 3rd trimester screening - [facility]J Trichomoniasis 01/09/2016 01/02/2022 Overview: 01/09/16 - needs [facility] & 3rd trimester screening - KJ April 29, 2016 Still positive, retreat. Kayla Robb MD Late care affecting 6 01/02/2022 Overview: 01/09/16 - EDC slightly different based on dating US but less than 2 weeks so will not change EDC, plan for repeat US in 4 weeks - KJ 01/06/2016Pt is approximately 21 weeks . She has not had care prior to today. Pt is in senior care and and due to get out in March. FOB is involved. He is not the father of her previous child. Patient's maternal grandmother has custody of her other child. TKRN Pelvic pain in 01/06/2016 022 Overview: 01/07/2016Patient has noted pelvic cramping on a pain scale of 4 when she gets up from a standing position and moves in bed.She denies any bleeding. Discussed with Sylvie. Pt reassured . Pt states she is not concerned about the pain and thinks it is growing pains. Appt tomorrow with M.D. To call/come in if bleeding develops, pain worsens or PRN problems. Ultrasound ordered by Sylvie Champion MANAGER PAPER.TKRN Quit smoking 01/06/2016 04/29/2016 Overview: 03/27/16: pt still smoking cigarettes 01/06/2016Pt recently quit smoking 12/24/2015. Discussed risks of smoking during and advised pt to continue not smoking.TKRN documented as of this encounter (statuses as of 03/31/2022) 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 MH 01/09/16 - needs 3rd trimester screening - KJ Trichomoniasis 01/09/2016 01/02/2022 Overview: 01/09/16 - needs [facility] & 3rd trimester screening - KJ April 29, 2016 Still positive, retreat. Kayla Robb MD Late care affecting 6 01/02/2022 Overview: 01/09/16 - EDC slightly different based on dating US but less than 2 weeks so will not change EDC, plan for repeat US in 4 weeks - KJ 01/06/2016Pt is approximately 21 weeks . She has not had care prior to today. Pt is in senior care and and due to get out in March. FOB is involved. He is not the father of her previous child. Patient's maternal grandmother has custody of her other child. TKRN Pelvic pain in 01/06/2016 022 Overview: 01/07/2016Patient has noted pelvic cramping on a pain scale of 4 when she gets up from a standing position and moves in bed.She denies any bleeding. Discussed with Sylvie. Pt reassured . Pt states she is not concerned about the pain and thinks it is growing pains. Appt tomorrow with M.D. To call/come in if bleeding develops, pain worsens or PRN problems. Ultrasound ordered by Sylvie Champion MANAGER PAPER.TKRN Quit smoking 01/06/2016 04/29/2016 Overview: 03/27/16: pt still smoking cigarettes 01/06/2016Pt recently quit smoking 12/24/2015. Discussed risks of smoking during and advised pt to continue not smoking.TKRN documented as of this encounter (statuses as of 04/24/2022) 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 MH 01/09/16 - needs 3rd trimester screening - [facility]J Trichomoniasis 01/09/2016 01/02/2022 Overview: 01/09/16 - needs [facility] & 3rd trimester screening - KJ April 29, 2016 Still positive, retreat. Kayla Robb MD Late care affecting 6 01/02/2022 Overview: 01/09/16 - EDC slightly different based on dating US but less than 2 weeks so will not change EDC, plan for repeat US in 4 weeks - KJ 01/06/2016Pt is approximately 21 weeks . She has not had care prior to today. Pt is in senior care and and due to get out in March. FOB is involved. He is not the father of her previous child. Patient's maternal grandmother has custody of her other child. TKRN Pelvic pain in 01/06/2016 022 Overview: 01/07/2016Patient has noted pelvic cramping on a pain scale of 4 when she gets up from a standing position and moves in bed.She denies any bleeding. Discussed with Sylvie. Pt reassured . Pt states she is not concerned about the pain and thinks it is growing pains. Appt tomorrow with M.D. To call/come in if bleeding develops, pain worsens or PRN problems. Ultrasound ordered by Sylvie Champion MANAGER PAPER.TKRN Quit smoking 01/06/2016 04/29/2016 Overview: 03/27/16: pt still smoking cigarettes 01/06/2016Pt recently quit smoking 12/24/2015. Discussed risks of smoking during and advised pt to continue not smoking.TKRN documented as of this encounter (statuses as of 05/08/2022) 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 01/09/16 - needs 3rd trimester screening - [facility] Trichomoniasis 01/09/2016 01/02/2022 Overview: 01/09/16 - needs [facility] & 3rd trimester screening - [facility] April 29, 2016 Still positive, retreat. Kayla Robb MD Late care affecting 6 01/02/2022 Overview: 01/09/16 - EDC slightly different based on dating US but less than 2 weeks so will not change EDC, plan for repeat US in 4 weeks - KJ 01/06/2016Pt is approximately 21 weeks . She has not had care prior to today. Pt is in senior care and and due to get out in March. FOB is involved. He is not the father of her previous child. Patient's maternal grandmother has custody of her other child. TKRN Pelvic pain in 01/06/2016 022 Overview: 01/07/2016Patient has noted pelvic cramping on a pain scale of 4 when she gets up from a standing position and moves in bed.She denies any bleeding. Discussed with Sylvie. Pt reassured . Pt states she is not concerned about the pain and thinks it is growing pains. Appt tomorrow with M.D. To call/come in if bleeding develops, pain worsens or PRN problems. Ultrasound ordered by Sylvie Champion MANAGER PAPER.TKRN Quit smoking 01/06/2016 04/29/2016 Overview: 03/27/16: pt still smoking cigarettes 01/06/2016Pt recently quit smoking 12/24/2015. Discussed risks of smoking during and advised pt to continue not smoking.TKRN documented as of this encounter (statuses as of 05/25/2022) 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 01/09/16 - needs 3rd trimester screening - KJ Trichomoniasis 01/09/2016 01/02/2022 Overview: 5/5/16 - needs [facility] & 3rd trimester screening - KJ April 29, 2016 Still positive, retreat. Kayla Robb MD Late care affecting 6 01/02/2022 Overview: 01/09/16 - EDC slightly different based on dating US but less than 2 weeks so will not change EDC, plan for repeat US in 4 weeks - 01/06/2016Pt is approximately 21 weeks . She has not had care prior to today. Pt is in senior care and and due to get out in March. FOB is involved. He is not the father of her previous child. Patient's maternal grandmother has custody of her other child. TKRN Pelvic pain in 01/06/2016 022 Overview: 01/07/2016Patient has noted pelvic cramping on a pain scale of 4 when she gets up from a standing position and moves in bed.She denies any bleeding. Discussed with Sylvie. Pt reassured . Pt states she is not concerned about the pain and thinks it is growing pains. Appt tomorrow with M.D. To call/come in if bleeding develops, pain worsens or PRN problems. Ultrasound ordered by Sylvie Champion NP.TKRN Quit smoking 01/06/2016 04/29/2016 Overview: 03/27/16: pt still smoking cigarettes 01/06/2016Pt recently quit smoking 12/24/2015. Discussed risks of smoking during and advised pt to continue not smoking.TKRN documented as of this encounter (statuses as of 06/10/2022) 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 MH 01/09/16 - needs 3rd trimester screening - KJ Trichomoniasis 01/09/2016 01/02/2022 Overview: 01/09/16 - needs [facility] & 3rd trimester screening - KJ April 29, 2016 Still positive, retreat. Kayla Robb MD Late care affecting 6 01/02/2022 Overview: 01/09/16 - EDC slightly different based on dating US but less than 2 weeks so will not change EDC, plan for repeat US in 4 weeks - KJ 01/06/2016Pt is approximately 21 weeks . She has not had care prior to today. Pt is in senior care and and due to get out in March. FOB is involved. He is not the father of her previous child. Patient's maternal grandmother has custody of her other child. TKRN Pelvic pain in 01/06/2016 022 Overview: 01/07/2016Patient has noted pelvic cramping on a pain scale of 4 when she gets up from a standing position and moves in bed.She denies any bleeding. Discussed with Sylvie. Pt reassured . Pt states she is not concerned about the pain and thinks it is growing pains. Appt tomorrow with M.D. To call/come in if bleeding develops, pain worsens or PRN problems. Ultrasound ordered by Sylvie Champion MANAGER PAPER.TKRN Quit smoking 01/06/2016 04/29/2016 Overview: 03/27/16: pt still smoking cigarettes 01/06/2016Pt recently quit smoking 12/24/2015. Discussed risks of smoking during and advised pt to continue not smoking.TKRN documented as of this encounter (statuses as of 06/26/2022) 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 MH 01/09/16 - needs 3rd trimester screening - KJ Trichomoniasis 01/09/2016 01/02/2022 Overview: 01/09/16 - needs [facility] & 3rd trimester screening - KJ April 29, 2016 Still positive, retreat. Kayla Robb MD Late care affecting 6 01/02/2022 Overview: 01/09/16 - EDC slightly different based on dating US but less than 2 weeks so will not change EDC, plan for repeat US in 4 weeks - KJ 01/06/2016Pt is approximately 21 weeks . She has not had care prior to today. Pt is in senior care and and due to get out in March. FOB is involved. He is not the father of her previous child. Patient's maternal grandmother has custody of her other child. TKRN Pelvic pain in 01/06/2016 022 Overview: 01/07/2016Patient has noted pelvic cramping on a pain scale of 4 when she gets up from a standing position and moves in bed.She denies any bleeding. Discussed with Sylvie. Pt reassured . Pt states she is not concerned about the pain and thinks it is growing pains. Appt tomorrow with M.D. To call/come in if bleeding develops, pain worsens or PRN problems. Ultrasound ordered by Sylvie Champion MANAGER PAPER.TKRN Quit smoking 01/06/2016 04/29/2016 Overview: 03/27/16: pt still smoking cigarettes 01/06/2016Pt recently quit smoking 12/24/2015. Discussed risks of smoking during and advised pt to continue not smoking.TKRN documented as of this encounter (statuses as of 06/26/2022) 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 MH 01/09/16 - needs 3rd trimester screening - Trichomoniasis 01/09/2016 01/02/2022 Overview: 01/09/16 - needs [facility] & 3rd trimester screening - KJ April 29, 2016 Still positive, retreat. Kayla Robb MD Late care affecting 6 01/02/2022 Overview: 01/09/16 - EDC slightly different based on dating US but less than 2 weeks so will not change EDC, plan for repeat US in 4 weeks - KJ 01/06/2016Pt is approximately 21 weeks . She has not had care prior to today. Pt is in senior care and and due to get out in March. FOB is involved. He is not the father of her previous child. Patient's maternal grandmother has custody of her other child. TKRN Pelvic pain in 01/06/2016 022 Overview: 01/07/2016Patient has noted pelvic cramping on a pain scale of 4 when she gets up from a standing position and moves in bed.She denies any bleeding. Discussed with Sylvie. Pt reassured . Pt states she is not concerned about the pain and thinks it is growing pains. Appt tomorrow with M.D. To call/come in if bleeding develops, pain worsens or PRN problems. Ultrasound ordered by Sylvie Champion MANAGER PAPER.TKRN Quit smoking 01/06/2016 04/29/2016 Overview: 03/27/16: pt still smoking cigarettes 01/06/2016Pt recently quit smoking 12/24/2015. Discussed risks of smoking during and advised pt to continue not smoking.TKRN documented as of this encounter (statuses as of 06/26/2022) 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 01/09/16 - needs 3rd trimester screening - [facility] Trichomoniasis 01/09/2016 01/02/2022 Overview: 01/09/16 - needs [facility] & 3rd trimester screening - KJ April 29, 2016 Still positive, retreat. Kayla Robb MD Late care affecting 6 01/02/2022 Overview: 01/09/16 - EDC slightly different based on dating US but less than 2 weeks so will not change EDC, plan for repeat US in 4 weeks - KJ 01/06/2016Pt is approximately 21 weeks . She has not had care prior to today. Pt is in senior care and and due to get out in March. FOB is involved. He is not the father of her previous child. Patient's maternal grandmother has custody of her other child. TKRN Pelvic pain in 01/06/2016 022 Overview: 01/07/2016Patient has noted pelvic cramping on a pain scale of 4 when she gets up from a standing position and moves in bed.She denies any bleeding. Discussed with Sylvie. Pt reassured . Pt states she is not concerned about the pain and thinks it is growing pains. Appt tomorrow with M.D. To call/come in if bleeding develops, pain worsens or PRN problems. Ultrasound ordered by Sylvie Champion MANAGER PAPER.TKRN Quit smoking 01/06/2016 04/29/2016 Overview: 03/27/16: pt still smoking cigarettes 01/06/2016Pt recently quit smoking 12/24/2015. Discussed risks of smoking during and advised pt to continue not smoking.TKRN documented as of this encounter (statuses as of 07/07/2022) 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 01/09/16 - needs 3rd trimester screening - KJ Trichomoniasis 01/09/2016 01/02/2022 Overview: 01/09/16 - needs [facility] & 3rd trimester screening - KJ April 29, 2016 Still positive, retreat. Kayla Robb MD Late care affecting 6 01/02/2022 Overview: 01/09/16 - EDC slightly different based on dating US but less than 2 weeks so will not change EDC, plan for repeat US in 4 weeks - KJ 01/06/2016Pt is approximately 21 weeks . She has not had care prior to today. Pt is in senior care and and due to get out in March. FOB is involved. He is not the father of her previous child. Patient's maternal grandmother has custody of her other child. TKRN Pelvic pain in 01/06/2016 022 Overview: 01/07/2016Patient has noted pelvic cramping on a pain scale of 4 when she gets up from a standing position and moves in bed.She denies any bleeding. Discussed with Sylvie. Pt reassured . Pt states she is not concerned about the pain and thinks it is growing pains. Appt tomorrow with M.D. To call/come in if bleeding develops, pain worsens or PRN problems. Ultrasound ordered by Sylvie Champion MANAGER PAPER.TKRN Quit smoking 01/06/2016 04/29/2016 Overview: 03/27/16: pt still smoking cigarettes 01/06/2016Pt recently quit smoking 12/24/2015. Discussed risks of smoking during and advised pt to continue not smoking.TKRN documented as of this encounter (statuses as of 07/07/2022) 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 MH 01/09/16 - needs 3rd trimester screening - [facility]J Trichomoniasis 01/09/2016 01/02/2022 Overview: 01/09/16 - needs [facility] & 3rd trimester screening - [facility] April 29, 2016 Still positive, retreat. Kayla Robb MD Late care affecting 6 01/02/2022 Overview: 01/09/16 - EDC slightly different based on dating US but less than 2 weeks so will not change EDC, plan for repeat US in 4 weeks - KJ 01/06/2016Pt is approximately 21 weeks . She has not had care prior to today. Pt is in senior care and and due to get out in March. FOB is involved. He is not the father of her previous child. Patient's maternal grandmother has custody of her other child. TKRN Pelvic pain in 01/06/2016 022 Overview: 01/07/2016Patient has noted pelvic cramping on a pain scale of 4 when she gets up from a standing position and moves in bed.She denies any bleeding. Discussed with Sylvie. Pt reassured . Pt states she is not concerned about the pain and thinks it is growing pains. Appt tomorrow with M.D. To call/come in if bleeding develops, pain worsens or PRN problems. Ultrasound ordered by Sylvie Champion MANAGER PAPER.TKRN Quit smoking 01/06/2016 04/29/2016 Overview: 7/22/16: pt still smoking cigarettes 01/06/2016Pt recently quit smoking 12/24/2015. Discussed risks of smoking during and advised pt to continue not smoking.TKRN documented as of this encounter (statuses as of 07/14/2022) 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 01/09/16 - needs 3rd trimester screening - [facility] Trichomoniasis 01/09/2016 01/02/2022 Overview: 01/09/16 - needs [facility] & 3rd trimester screening - [facility] April 29, 2016 Still positive, retreat. Kayla Robb MD Late care affecting 6 01/02/2022 Overview: 01/09/16 - EDC slightly different based on dating US but less than 2 weeks so will not change EDC, plan for repeat US in 4 weeks - KJ 01/06/2016Pt is approximately 21 weeks . She has not had care prior to today. Pt is in senior care and and due to get out in March. FOB is involved. He is not the father of her previous child. Patient's maternal grandmother has custody of her other child. TKRN Pelvic pain in 01/06/2016 022 Overview: 01/07/2016Patient has noted pelvic cramping on a pain scale of 4 when she gets up from a standing position and moves in bed.She denies any bleeding. Discussed with Sylvie. Pt reassured . Pt states she is not concerned about the pain and thinks it is growing pains. Appt tomorrow with M.D. To call/come in if bleeding develops, pain worsens or PRN problems. Ultrasound ordered by Sylvie Champion MANAGER PAPER.TKRN Quit smoking 01/06/2016 04/29/2016 Overview: 03/27/16: pt still smoking cigarettes 01/06/2016Pt recently quit smoking 12/24/2015. Discussed risks of smoking during and advised pt to continue not smoking.TKRN documented as of this encounter (statuses as of 07/21/2022) 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 01/09/16 - needs 3rd trimester screening - [facility] Trichomoniasis 01/09/2016 01/02/2022 Overview: 01/09/16 - needs [facility] & 3rd trimester screening - KJ April 29, 2016 Still positive, retreat. Kayla Robb MD Late care affecting 6 01/02/2022 Overview: 01/09/16 - EDC slightly different based on dating US but less than 2 weeks so will not change EDC, plan for repeat US in 4 weeks - KJ 01/06/2016Pt is approximately 21 weeks . She has not had care prior to today. Pt is in senior care and and due to get out in March. FOB is involved. He is not the father of her previous child. Patient's maternal grandmother has custody of her other child. TKRN Pelvic pain in 01/06/2016 022 Overview: 01/07/2016Patient has noted pelvic cramping on a pain scale of 4 when she gets up from a standing position and moves in bed.She denies any bleeding. Discussed with Sylvie. Pt reassured . Pt states she is not concerned about the pain and thinks it is growing pains. Appt tomorrow with M.D. To call/come in if bleeding develops, pain worsens or PRN problems. Ultrasound ordered by Sylvie Champion NP.TKRN Quit smoking 01/06/2016 04/29/2016 Overview: 03/27/16: pt still smoking cigarettes 01/06/2016Pt recently quit smoking 12/24/2015. Discussed risks of smoking during and advised pt to continue not smoking.TKRN documented as of this encounter (statuses as of 07/21/2022) 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 MH 01/09/16 - needs 3rd trimester screening - [facility] Trichomoniasis 01/09/2016 01/02/2022 Overview: 01/09/16 - needs JENNY & 3rd trimester screening - [facility]J April 29, 2016 Still positive, retreat. Kayla Robb MD Late care affecting 6 01/02/2022 Overview: 01/09/16 - EDC slightly different based on dating US but less than 2 weeks so will not change EDC, plan for repeat US in 4 weeks - KJ 01/06/2016Pt is approximately 21 weeks . She has not had care prior to today. Pt is in senior care and and due to get out in March. FOB is involved. He is not the father of her previous child. Patient's maternal grandmother has custody of her other child. TKRN Pelvic pain in 01/06/2016 022 Overview: 01/07/2016Patient has noted pelvic cramping on a pain scale of 4 when she gets up from a standing position and moves in bed.She denies any bleeding. Discussed with Sylvie. Pt reassured . Pt states she is not concerned about the pain and thinks it is growing pains. Appt tomorrow with M.D. To call/come in if bleeding develops, pain worsens or PRN problems. Ultrasound ordered by Sylvie Champion NP.TKRN Quit smoking 01/06/2016 04/29/2016 Overview: 03/27/16: pt still smoking cigarettes 01/06/2016Pt recently quit smoking 12/24/2015. Discussed risks of smoking during and advised pt to continue not smoking.TKRN documented as of this encounter (statuses as of 07/28/2022) 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 MH 01/09/16 - needs 3rd trimester screening - KJ Trichomoniasis 01/09/2016 01/02/2022 Overview: 01/09/16 - needs JENNY & 3rd trimester screening - KJ April 29, 2016 Still positive, retreat. Kayla Robb MD Late care affecting 6 01/02/2022 Overview: 01/09/16 - EDC slightly different based on dating US but less than 2 weeks so will not change EDC, plan for repeat US in 4 weeks - KJ 01/06/2016Pt is approximately 21 weeks . She has not had care prior to today. Pt is in senior care and and due to get out in March. FOB is involved. He is not the father of her previous child. Patient's maternal grandmother has custody of her other child. TKRN Pelvic pain in 01/06/2016 022 Overview: 01/07/2016Patient has noted pelvic cramping on a pain scale of 4 when she gets up from a standing position and moves in bed.She denies any bleeding. Discussed with Sylvie. Pt reassured . Pt states she is not concerned about the pain and thinks it is growing pains. Appt tomorrow with M.D. To call/come in if bleeding develops, pain worsens or PRN problems. Ultrasound ordered by Sylvie Champion MANAGER PAPER.TKRN Quit smoking 01/06/2016 04/29/2016 Overview: 03/27/16: pt still smoking cigarettes 01/06/2016Pt recently quit smoking 12/24/2015. Discussed risks of smoking during and advised pt to continue not smoking.TKRN documented as of this encounter (statuses as of 07/29/2022) 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 MH 01/09/16 - needs 3rd trimester screening - [facility] Trichomoniasis 01/09/2016 01/02/2022 Overview: 01/09/16 - needs JEN[facility] & 3rd trimester screening - [facility] April 29, 2016 Still positive, retreat. Kayla Robb MD Late care affecting 6 01/02/2022 Overview: 01/09/16 - EDC slightly different based on dating US but less than 2 weeks so will not change EDC, plan for repeat US in 4 weeks - KJ 01/06/2016Pt is approximately 21 weeks . She has not had care prior to today. Pt is in senior care and and due to get out in March. FOB is involved. He is not the father of her previous child. Patient's maternal grandmother has custody of her other child. TKRN Pelvic pain in 01/06/2016 022 Overview: 01/07/2016Patient has noted pelvic cramping on a pain scale of 4 when she gets up from a standing position and moves in bed.She denies any bleeding. Discussed with Sylvie. Pt reassured . Pt states she is not concerned about the pain and thinks it is growing pains. Appt tomorrow with M.D. To call/come in if bleeding develops, pain worsens or PRN problems. Ultrasound ordered by Sylvie Champion MANAGER PAPER.TKRN Quit smoking 01/06/2016 04/29/2016 Overview: 03/27/16: pt still smoking cigarettes 01/06/2016Pt recently quit smoking 12/24/2015. Discussed risks of smoking during and advised pt to continue not smoking.TKRN documented as of this encounter (statuses as of 07/29/2022) 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 01/09/16 - needs 3rd trimester screening - [facility] Trichomoniasis 01/09/2016 01/02/2022 Overview: 01/09/16 - needs JENNY & 3rd trimester screening - [facility] April 29, 2016 Still positive, retreat. Kayla Robb MD Late care affecting 6 01/02/2022 Overview: 01/09/16 - EDC slightly different based on dating US but less than 2 weeks so will not change EDC, plan for repeat US in 4 weeks - KJ 01/06/2016Pt is approximately 21 weeks . She has not had care prior to today. Pt is in senior care and and due to get out in March. FOB is involved. He is not the father of her previous child. Patient's maternal grandmother has custody of her other child. TKRN Pelvic pain in 01/06/2016 022 Overview: 01/07/2016Patient has noted pelvic cramping on a pain scale of 4 when she gets up from a standing position and moves in bed.She denies any bleeding. Discussed with Sylvie. Pt reassured . Pt states she is not concerned about the pain and thinks it is growing pains. Appt tomorrow with M.D. To call/come in if bleeding develops, pain worsens or PRN problems. Ultrasound ordered by Sylvie Champion MANAGER PAPER.TKRN Quit smoking 01/06/2016 04/29/2016 Overview: 03/27/16: pt still smoking cigarettes 01/06/2016Pt recently quit smoking 12/24/2015. Discussed risks of smoking during and advised pt to continue not smoking.TKRN documented as of this encounter (statuses as of 08/06/2022) 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 01/09/16 - needs 3rd trimester screening - KJ Trichomoniasis 01/09/2016 01/02/2022 Overview: 01/09/16 - needs JEN[facility] & 3rd trimester screening - KJ April 29, 2016 Still positive, retreat. Kayla Robb MD Late care affecting 6 01/02/2022 Overview: 01/09/16 - EDC slightly different based on dating US but less than 2 weeks so will not change EDC, plan for repeat US in 4 weeks - KJ 01/06/2016Pt is approximately 21 weeks . She has not had care prior to today. Pt is in senior care and and due to get out in March. FOB is involved. He is not the father of her previous child. Patient's maternal grandmother has custody of her other child. TKRN Pelvic pain in 01/06/2016 022 Overview: 01/07/2016Patient has noted pelvic cramping on a pain scale of 4 when she gets up from a standing position and moves in bed.She denies any bleeding. Discussed with Sylvie. Pt reassured . Pt states she is not concerned about the pain and thinks it is growing pains. Appt tomorrow with M.D. To call/come in if bleeding develops, pain worsens or PRN problems. Ultrasound ordered by Sylvie Champion MANAGER PAPER.TKRN Quit smoking 01/06/2016 04/29/2016 Overview: 03/27/16: pt still smoking cigarettes 01/06/2016Pt recently quit smoking 12/24/2015. Discussed risks of smoking during and advised pt to continue not smoking.TKRN documented as of this encounter (statuses as of 08/12/2022) [facility]05-[facility] History of Past illness Narrative* Problem Noted Date Resolved Date Chlamydia infection, current 6 01/14/2016 Overview: 01/14/16 - needs JEN[facility] & 3rd trimester screening - [facility] Quit smoking 01/06/2016 04/29/2016 Overview: 03/27/16: pt still smoking cigarettes 01/06/2016Pt recently quit smoking 12/24/2015. Discussed risks of smoking during and advised pt to continue not smoking.TKRN documented as of this encounter (statuses as of 12/23/2021) [facility]05-[facility] History of Past illness Narrative* Problem Noted Date Resolved Date Chlamydia infection, current 6 01/14/2016 Overview: 01/14/16 - needs JEN[facility] & 3rd trimester screening - [facility] Quit smoking 01/06/2016 04/29/2016 Overview: 03/27/16: pt still smoking cigarettes 01/06/2016Pt recently quit smoking 12/24/2015. Discussed risks of smoking during and advised pt to continue not smoking.TKRN documented as of this encounter (statuses as of 01/01/2022) [facility] [place] noteNo assessment information availableWAultman [facility] Work Phone: Evaluation note* Diagnosis Encounter for supervision of normal in multigravida in first trimester- Primary Encounter for screening for malignant neoplasm of cervix Screening for malignant neoplasm of the cervix Uncertain dates, antepartum, first trimester Viral hepatitis complicating , first trimester Supervision of other high risk pregnancies, first trimester Hepatitis C virus carrier state (HCC) Drug use disorder Other, mixed, or unspecified nondependent drug abuse, unspecified [facility] [place] [facility]* Diagnosis Encounter for supervision of normal in multigravida in first trimester- Primary Uncertain dates, antepartum, first trimester Gonorrhea affecting in first trimester Screen for STD (sexually transmitted disease) Screening examination for venereal disease documented [facility] this encounter [facility] [place] [facility]* Diagnosis Screen for STD (sexually transmitted disease)- Primary Screening examination for venereal disease 13 weeks gestation of state, incidental Drug use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 now. Pt should have an inperson MFM visit at 34-36 weeks for delivery planning. Pt states that her general OB wants her to deliver at [place] as [place] is not idea for an baby affected by isoimmunization. Lachelle Hickman MD 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, single or unspecified fetus (HCC) 20 weeks gestation of ([facility]) state, incidental Hx of intravenous drug use, in remission- Primary Other, mixed, or unspecified nondependent drug abuse, in remission Maternal care for isoimmunization, second trimester, single gestation ([facility]) 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, single or unspecified fetus (HCC) History of drug abuse (HCC) Other, mixed, or unspecified nondependent drug abuse, in remission Family history of congenital heart defect Family history of congenital anomalies History of depression Supervision of high risk in second trimester ([facility])- Primary Unspecified high-risk 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, single or unspecified fetus (HCC) Tobacco smoking complicating in second trimester (HCC) Tobacco use disorder complicating , childbirth, or the puerperium, antepartum condition or complication 24 weeks gestation of (HCC) state, incidental 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, single or unspecified fetus (HCC)- Primary Supervision of high risk in second trimester (HCC)- Primary Unspecified high-risk 26 weeks gestation of (HCC) state, incidental 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 She declines reversible options including LARC. She understands sterilization is permanent, irreversible, risksof failure, regret and ectopic. In addition she understands there are surgical risks as well. 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, single or unspecified fetus (HCC) 20 weeks gestation of (HCC) state, incidental Hx of intravenous drug use, in remission- Primary Other, mixed, or unspecified nondependent drug abuse, in remission Maternal care for isoimmunization, second trimester, single gestation ([facility]) 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, single or unspecified fetus ([facility]) History of drug abuse (HCC) Other, mixed, or unspecified nondependent drug abuse, in remission Family history of congenital heart defect Family history of congenital anomalies History of depression Supervision of high risk in second trimester ([facility])- Primary Unspecified high-risk 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, single or unspecified fetus (HCC) Tobacco smoking complicating in second trimester ([facility]) Tobacco use disorder complicating , childbirth, or the puerperium, antepartum condition or complication 24 weeks gestation of ([facility]) state, incidental 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, single or unspecified fetus ([facility])- Primary Maternal care for isoimmunization, second trimester, single gestation ([facility])- Primary Supervision of high risk in second trimester ([facility]) Unspecified high-risk 26 weeks gestation of ([facility]) state, incidental Supervision of high risk in second trimester ([facility])- Primary Unspecified high-risk 26 weeks gestation of ([facility]) state, incidental 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, single or unspecified fetus ([facility]) Tobacco smoking complicating in second trimester ([facility]) Tobacco use disorder complicating , childbirth, or the puerperium, antepartum condition or complication General counseling and advice for contraceptive management Other general counseling and advice for contraceptive management 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, single or unspecified fetus ([facility]) 20 weeks gestation of ([facility]) state, incidental Hx of intravenous drug use, in remission- Primary Other, mixed, or unspecified nondependent drug abuse, in remission Maternal care for isoimmunization, second trimester, single gestation ([facility]) 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, single or unspecified fetus (HCC) History of drug abuse (HCC) Other, mixed, or unspecified nondependent drug abuse, in remission Family history of congenital heart defect Family history of congenital anomalies History of depression 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, second trimester, not applicable or unspecified fetus ([facility])- Primary care, subsequent , second trimester ([facility]) Supervision of high risk in second trimester ([facility])- Primary Unspecified high-risk 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, single or unspecified fetus ([facility]) Tobacco smoking complicating in second trimester ([facility]) Tobacco use disorder complicating , childbirth, or the puerperium, antepartum condition or complication 24 weeks gestation of ([facility]) state, incidental 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, single or unspecified fetus ([facility])- Primary Supervision of high risk in second trimester ([facility])- Primary Unspecified high-risk 26 weeks gestation of ([facility]) state, incidental 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, single or unspecified fetus ([facility]) Tobacco smoking complicating in second trimester ([facility]) Tobacco use disorder complicating , childbirth, or the puerperium, antepartum condition or complication General counseling and advice for contraceptive management Other general counseling and advice for contraceptive management 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, single or unspecified fetus ([facility]) 20 weeks gestation of ([facility]) state, incidental Hx of intravenous drug use, in remission- Primary Other, mixed, or unspecified nondependent drug abuse, in remission Maternal care for isoimmunization, second trimester, single gestation ([facility]) 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, single or unspecified fetus (HCC) History of drug abuse (HCC) Other, mixed, or unspecified nondependent drug abuse, in remission Family history of congenital heart defect Family history of congenital anomalies History of depression Supervision of high risk in second trimester ([facility])- Primary Unspecified high-risk 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, single or unspecified fetus (HCC) Tobacco smoking complicating in second trimester ([facility]) Tobacco use disorder complicating , childbirth, or the puerperium, antepartum condition or complication 24 weeks gestation of ([facility]) state, incidental 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, single or unspecified fetus ([facility])- Primary Supervision of high risk in second trimester ([facility])- Primary Unspecified high-risk 26 weeks gestation of ([facility]) state, incidental 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, single or unspecified fetus ([facility]) Tobacco smoking complicating in second trimester ([facility]) Tobacco use disorder complicating , childbirth, or the puerperium, antepartum condition or complication General counseling and advice for contraceptive management Other general counseling and advice for contraceptive management Supervision of high risk due to social problems, third trimester ([facility])- Primary 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, single or unspecified fetus ([facility]) Maternal care for isoimmunization, second trimester, single gestation ([facility])- Primary Supervision of high risk in second trimester ([facility]) Unspecified high-risk Supervision of high risk in second trimester ([facility])- Primary Unspecified high-risk 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, single or unspecified fetus ([facility]) 20 weeks gestation of ([facility]) state, incidental Maternal care for isoimmunization, second trimester, single gestation ([facility]) Supervision of high risk in second trimester ([facility]) Unspecified high-risk Hx of intravenous drug use, in remission- Primary Other, mixed, or unspecified nondependent drug abuse, in remission Maternal care for isoimmunization, second trimester, single gestation ([facility]) 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, single or unspecified fetus ([facility]) History of drug abuse ([facility]) Other, mixed, or unspecified nondependent drug abuse, in remission Family history of congenital heart defect Family history of congenital anomalies History of depression Encounter for ultrasound to check growth ([facility])- Primary Encounter for routine screening for malformation using ultrasonics Maternal care for isoimmunization, second trimester, single gestation ([facility]) Supervision of high risk in second trimester ([facility]) Unspecified high-risk 24 weeks gestation of ([facility]) state, incidental Supervision of high risk in second trimester ([facility])- Primary Unspecified high-risk 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, single or unspecified fetus ([facility]) Tobacco smoking complicating in second trimester ([facility]) Tobacco use disorder complicating , childbirth, or the puerperium, antepartum condition or complication 24 weeks gestation of ([facility]) state, incidental 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, single or unspecified fetus ([facility])- Primary Maternal care for isoimmunization, second trimester, single gestation ([facility])- Primary Supervision of high risk in second trimester ([facility]) Unspecified high-risk 26 weeks gestation of ([facility]) state, incidental Supervision of high risk in second trimester ([facility])- Primary Unspecified high-risk 26 weeks gestation of ([facility]) state, incidental 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, single or unspecified fetus ([facility]) Tobacco smoking complicating in second trimester ([facility]) Tobacco use disorder complicating , childbirth, or the puerperium, antepartum condition or complication General counseling and advice for contraceptive management Other general counseling and advice for contraceptive management Supervision of high risk due to social problems, third trimester ([facility])- Primary 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, single or unspecified fetus ([facility]CC) 20 weeks gestation of ([facility]) state, incidental Hx of intravenous drug use, in remission- Primary Other, mixed, or unspecified nondependent drug abuse, in remission Maternal care for isoimmunization, second trimester, single gestation ([facility]) 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, single or unspecified fetus ([facility]) History of drug abuse ([facility]) Other, mixed, or unspecified nondependent drug abuse, in remission Family history of congenital heart defect Family history of congenital anomalies History of depression Supervision of high risk in second trimester ([facility])- Primary Unspecified high-risk 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, single or unspecified fetus ([facility]) Tobacco smoking complicating in second trimester ([facility]) Tobacco use disorder complicating , childbirth, or the puerperium, antepartum condition or complication 24 weeks gestation of ([facility]) state, incidental 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, single or unspecified fetus ([facility])- Primary Supervision of high risk in second trimester ([facility])- Primary Unspecified high-risk 26 weeks gestation of ([facility]) state, incidental 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, single or unspecified fetus ([facility]) Tobacco smoking complicating in second trimester ([facility]) Tobacco use disorder complicating , childbirth, or the puerperium, antepartum condition or complication General counseling and advice for contraceptive management Other general counseling and advice for contraceptive management Supervision of high risk due to social problems, third trimester ([facility])- Primary 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, single or unspecified fetus ([facility]) 28 weeks gestation of ([facility]) state, incidental Need for vaccination Need for prophylactic vaccination and inoculation against unspecified single disease Supervision of high risk due to social problems, third trimester ([facility])- Primary 30 weeks gestation of ([facility]) state, incidental * Assessment & Plan Note - Kayla Robb MD - 01/17/2025 1:29 PM EDT Associated Problem(s): Supervision of high risk due to social problems, third trimester ([facility]) anit E postiive, baby NIPT neg. Growth scans for monitoring 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, single or unspecified fetus (HCC) 20 weeks gestation of ([facility]) state, incidental Hx of intravenous drug use, in remission- Primary Other, mixed, or unspecified nondependent drug abuse, in remission Maternal care for isoimmunization, second trimester, single gestation ([facility]) 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, single or unspecified fetus (HCC) History of drug abuse (HCC) Other, mixed, or unspecified nondependent drug abuse, in remission Family history of congenital heart defect Family history of congenital anomalies History of depression Supervision of high risk in second trimester ([facility])- Primary Unspecified high-risk 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, single or unspecified fetus ([facility]) Tobacco smoking complicating in second trimester ([facility]) Tobacco use disorder complicating , childbirth, or the puerperium, antepartum condition or complication 24 weeks gestation of ([facility]) state, incidental 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, single or unspecified fetus (HCC)- Primary Supervision of high risk in second trimester ([facility])- Primary Unspecified high-risk 26 weeks gestation of ([facility]) state, incidental 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, single or unspecified fetus (HCC) Tobacco smoking complicating in second trimester ([facility]) Tobacco use disorder complicating , childbirth, or the puerperium, antepartum condition or complication General counseling and advice for contraceptive management Other general counseling and advice for contraceptive management Supervision of high risk due to social problems, third trimester ([facility])- Primary 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, single or unspecified fetus (HCC) 28 weeks gestation of ([facility]) state, incidental Need for vaccination Need for prophylactic vaccination and inoculation against unspecified single disease Encounter for ultrasound to check growth ([facility])- Primary Encounter for routine screening for malformation using ultrasonics Maternal care for isoimmunization, second trimester, single gestation (HCC) 30 weeks gestation of ([facility]) state, incidental Supervision of high risk due to social problems, third trimester ([facility])- Primary 30 weeks gestation of ([facility]) state, incidental 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, single or unspecified fetus ([facility]) 20 weeks gestation of ([facility]) state, incidental Hx of intravenous drug use, in remission- Primary Other, mixed, or unspecified nondependent drug abuse, in remission Maternal care for isoimmunization, second trimester, single gestation ([facility]) 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, single or unspecified fetus ([facility]) History of drug abuse ([facility]) Other, mixed, or unspecified nondependent drug abuse, in remission Family history of congenital heart defect Family history of congenital anomalies History of depression Supervision of high risk in second trimester ([facility])- Primary Unspecified high-risk 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, single or unspecified fetus ([facility]) Tobacco smoking complicating in second trimester ([facility]) Tobacco use disorder complicating , childbirth, or the puerperium, antepartum condition or complication 24 weeks gestation of ([facility]) state, incidental 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, single or unspecified fetus ([facility])- Primary Supervision of high risk in second trimester (HCC)- Primary Unspecified high-risk 26 weeks gestation of ([facility]) state, incidental 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, single or unspecified fetus (HCC) Tobacco smoking complicating in second trimester (HCC) Tobacco use disorder complicating , childbirth, or the puerperium, antepartum condition or complication General counseling and advice for contraceptive management Other general counseling and advice for contraceptive management Supervision of high risk due to social problems, third trimester ([facility])- Primary 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, single or unspecified fetus (HCC) 28 weeks gestation of ([facility]) state, incidental Need for vaccination Need for prophylactic vaccination and inoculation against unspecified single disease Supervision of high risk due to social problems, third trimester ([facility])- Primary 30 weeks gestation of ([facility]) state, incidental Supervision of high risk due to social problems, third trimester ([facility]CC)- Primary 32 weeks gestation of ([facility]) state, incidental 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, single or unspecified fetus ([facility]CC) * Assessment & Plan Note - Kayla Robb MD - 01/31/2025 11:49 AM EDT Associated Problem(s): Supervision of high risk due to social problems, third trimester ([facility]) Orders: URINE OB DIP B/O 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, single or unspecified fetus ([facility]CC) 20 weeks gestation of ([facility]) state, incidental Hx of intravenous drug use, in remission- Primary Other, mixed, or unspecified nondependent drug abuse, in remission Maternal care for isoimmunization, second trimester, single gestation ([facility]) 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, single or unspecified fetus (HCC) History of drug abuse (HCC) Other, mixed, or unspecified nondependent drug abuse, in remission Family history of congenital heart defect Family history of congenital anomalies History of depression Supervision of high risk in second trimester ([facility])- Primary Unspecified high-risk 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, single or unspecified fetus (HCC) Tobacco smoking complicating in second trimester ([facility]) Tobacco use disorder complicating , childbirth, or the puerperium, antepartum condition or complication 24 weeks gestation of ([facility]) state, incidental 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, single or unspecified fetus (HCC)- Primary Supervision of high risk in second trimester ([facility])- Primary Unspecified high-risk 26 weeks gestation of ([facility]) state, incidental 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, single or unspecified fetus (HCC) Tobacco smoking complicating in second trimester ([facility]) Tobacco use disorder complicating , childbirth, or the puerperium, antepartum condition or complication General counseling and advice for contraceptive management Other general counseling and advice for contraceptive management Supervision of high risk due to social problems, third trimester ([facility])- Primary 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, single or unspecified fetus (HCC) 28 weeks gestation of ([facility]) state, incidental Need for vaccination Need for prophylactic vaccination and inoculation against unspecified single disease Supervision of high risk due to social problems, third trimester ([facility])- Primary 30 weeks gestation of ([facility]) state, incidental Supervision of high risk due to social problems, third trimester ([facility])- Primary 32 weeks gestation of ([facility]) state, incidental 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, single or unspecified fetus (HCC) 20 weeks gestation of ([facility]) state, incidental Hx of intravenous drug use, in remission- Primary Other, mixed, or unspecified nondependent drug abuse, in remission Maternal care for isoimmunization, second trimester, single gestation ([facility]) 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, single or unspecified fetus (HCC) History of drug abuse (HCC) Other, mixed, or unspecified nondependent drug abuse, in remission Family history of congenital heart defect Family history of congenital anomalies History of depression Supervision of high risk in second trimester ([facility])- Primary Unspecified high-risk 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, single or unspecified fetus ([facility]) Tobacco smoking complicating in second trimester ([facility]) Tobacco use disorder complicating , childbirth, or the puerperium, antepartum condition or complication 24 weeks gestation of ([facility]) state, incidental 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, single or unspecified fetus ([facility])- Primary Supervision of high risk in second trimester ([facility])- Primary Unspecified high-risk 26 weeks gestation of ([facility]) state, incidental 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, single or unspecified fetus (HCC) Tobacco smoking complicating in second trimester ([facility]) Tobacco use disorder complicating , childbirth, or the puerperium, antepartum condition or complication General counseling and advice for contraceptive management Other general counseling and advice for contraceptive management Supervision of high risk due to social problems, third trimester ([facility])- Primary 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, single or unspecified fetus (HCC) 28 weeks gestation of ([facility]) state, incidental Need for vaccination Need for prophylactic vaccination and inoculation against unspecified single disease Supervision of high risk due to social problems, third trimester ([facility])- Primary 30 weeks gestation of ([facility]) state, incidental Supervision of high risk due to social problems, third trimester ([facility])- Primary 32 weeks gestation of ([facility]) state, incidental 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 [place] [facility]* Diagnosis Encounter for supervision of high risk in first trimester, antepartum ([facility])- Primary 12 weeks gestation of ([facility]) state, incidental Nausea and vomiting during ([facility]) 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, single or unspecified fetus ([facility]) Supervision of high risk in second trimester ([facility])- Primary Unspecified high-risk 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, single or unspecified fetus ([facility]) 20 weeks gestation of ([facility]) state, incidental Hx of intravenous drug use, in remission- Primary Other, mixed, or unspecified nondependent drug abuse, in remission Maternal care for isoimmunization, second trimester, single gestation ([facility]) 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, single or unspecified fetus ([facility]) History of drug abuse ([facility]) Other, mixed, or unspecified nondependent drug abuse, in remission Family history of congenital heart defect Family history of congenital anomalies History of depression Supervision of high risk in second trimester ([facility])- Primary Unspecified high-risk 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, single or unspecified fetus ([facility]) Tobacco smoking complicating in second trimester ([facility]) Tobacco use disorder complicating , childbirth, or the puerperium, antepartum condition or complication 24 weeks gestation of ([facility]) state, incidental 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, single or unspecified fetus ([facility])- Primary Supervision of high risk in second trimester ([facility])- Primary Unspecified high-risk 26 weeks gestation of ([facility]) state, incidental 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, single or unspecified fetus ([facility]) Tobacco smoking complicating in second trimester ([facility]) Tobacco use disorder complicating , childbirth, or the puerperium, antepartum condition or complication General counseling and advice for contraceptive management Other general counseling and advice for contraceptive management Supervision of high risk due to social problems, third trimester (HCC)- Primary 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, single or unspecified fetus (HCC) 28 weeks gestation of (HCC) state, incidental Need for vaccination Need for prophylactic vaccination and inoculation against unspecified single disease Supervision of high risk due to social problems, third trimester (HCC)- Primary 30 weeks gestation of (HCC) state, incidental Supervision of high risk due to social problems, third trimester (HCC)- Primary 32 weeks gestation of (HCC) state, incidental 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, single or unspecified fetus (HCC) Supervision of high risk due to social problems, third trimester (HCC)- Primary 36 weeks gestation of (HCC) state, incidental History of herpes genitalis Personal history of other infectious and parasitic disease * Assessment & Plan Note - Kayla Robb MD - 03/01/2025 11:22 AM EDT Associated Problem(s): Supervision of high risk due to social problems, third trimester (HCC) Orders: ROUTINE, GROUP B STREPTOCOCCUS BY PCR GONORRHEA/CHLAMYDIA NAAT TRICHOMONAS VAGINALIS NAAT URINE OB DIP B/O * Assessment & Plan Note - Kayla Robb MD - 03/01/2025 11:22 AM EDT Associated Problem(s): History of herpes genitalis prophylaxis ordered. PArtner does not know, doesn't want discussed in front of him 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, single or unspecified fetus (HCC) 20 weeks gestation of ([facility]) state, incidental Hx of intravenous drug use, in remission- Primary Other, mixed, or unspecified nondependent drug abuse, in remission Maternal care for isoimmunization, second trimester, single gestation ([facility]) 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, single or unspecified fetus (HCC) History of drug abuse (HCC) Other, mixed, or unspecified nondependent drug abuse, in remission Family history of congenital heart defect Family history of congenital anomalies History of depression Supervision of high risk in second trimester ([facility])- Primary Unspecified high-risk 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, single or unspecified fetus ([facility]) Tobacco smoking complicating in second trimester ([facility]) Tobacco use disorder complicating , childbirth, or the puerperium, antepartum condition or complication 24 weeks gestation of ([facility]) state, incidental 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, single or unspecified fetus ([facility])- Primary Supervision of high risk in second trimester ([facility])- Primary Unspecified high-risk 26 weeks gestation of ([facility]) state, incidental 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, single or unspecified fetus ([facility]) Tobacco smoking complicating in second trimester ([facility]) Tobacco use disorder complicating , childbirth, or the puerperium, antepartum condition or complication General counseling and advice for contraceptive management Other general counseling and advice for contraceptive management Supervision of high risk due to social problems, third trimester ([facility])- Primary 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, single or unspecified fetus (HCC) 28 weeks gestation of ([facility]) state, incidental Need for vaccination Need for prophylactic vaccination and inoculation against unspecified single disease Supervision of high risk due to social problems, third trimester ([facility])- Primary 30 weeks gestation of ([facility]) state, incidental Supervision of high risk due to social problems, third trimester ([facility])- Primary 32 weeks gestation of ([facility]) state, incidental 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, single or unspecified fetus ([facility]) Supervision of high risk due to social problems, third trimester ([facility])- Primary 36 weeks gestation of ([facility]) state, incidental History of herpes genitalis Personal history of other infectious and parasitic disease Supervision of high risk due to social problems, third trimester (HCC)- Primary 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, single or unspecified fetus (HCC) 20 weeks gestation of ([facility]) state, incidental Hx of intravenous drug use, in remission- Primary Other, mixed, or unspecified nondependent drug abuse, in remission Maternal care for isoimmunization, second trimester, single gestation (HCC) 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, single or unspecified fetus (HCC) History of drug abuse (HCC) Other, mixed, or unspecified nondependent drug abuse, in remission Family history of congenital heart defect Family history of congenital anomalies History of depression Supervision of high risk in second trimester ([facility])- Primary Unspecified high-risk 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, single or unspecified fetus (HCC) Tobacco smoking complicating in second trimester (HCC) Tobacco use disorder complicating , childbirth, or the puerperium, antepartum condition or complication 24 weeks gestation of ([facility]) state, incidental 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, single or unspecified fetus (HCC)- Primary Supervision of high risk in second trimester (HCC)- Primary Unspecified high-risk 26 weeks gestation of (HCC) state, incidental 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, single or unspecified fetus (HCC) Tobacco smoking complicating in second trimester (HCC) Tobacco use disorder complicating , childbirth, or the puerperium, antepartum condition or complication General counseling and advice for contraceptive management Other general counseling and advice for contraceptive management Supervision of high risk due to social problems, third trimester (HCC)- Primary 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, single or unspecified fetus (HCC) 28 weeks gestation of (HCC) state, incidental Need for vaccination Need for prophylactic vaccination and inoculation against unspecified single disease Supervision of high risk due to social problems, third trimester (HCC)- Primary 30 weeks gestation of (HCC) state, incidental Supervision of high risk due to social problems, third trimester (HCC)- Primary 32 weeks gestation of (HCC) state, incidental 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, single or unspecified fetus (HCC) Supervision of high risk due to social problems, third trimester (HCC)- Primary 36 weeks gestation of (HCC) state, incidental History of herpes genitalis Personal history of other infectious and parasitic disease Supervision of high risk due to social problems, third trimester (HCC)- Primary 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, single or unspecified fetus (HCC) 37 weeks gestation of (HCC) state, incidental Supervision of high risk due to social problems, third trimester (HCC)- Primary 38 weeks gestation of (HCC) state, incidental Vaginal discharge during in third trimester (HCC) History of herpes genitalis Personal history of other infectious and parasitic disease * Assessment & Plan Note - Kayla Robb MD - 03/13/2025 3:21 PM EDT Associated Problem(s): Supervision of high risk due to social problems, third trimester (HCC) Orders: URINE OB DIP B/O * Assessment & Plan Note - Kayla Robb MD - 03/13/2025 3:21 PM EDT Associated Problem(s): History of herpes genitalis documented in this encounter [facility] for referral (narrative)* Diagnostic Procedure Only (Routine) - Pending Review Specialty Diagnoses / Procedures Referred By Contac t Referred To Contact [facility] Diagnoses Uncertain dates, antepartum, first trimester Procedures OBSTETRIC ULTRASOUND WHI US PREG UTERUS AFTER 1ST TRIMEST GESTATION Kayla Robb MD [address] [place] [address] [address] Referral ID Status Reason Start Date Expiration Date Visits Requested Visits Authorized [id number] Pending Review Auto-Generat ed Referral 01/02/2022 01/02/2023 1 1 [facility] for referral (narrative)* Diagnostic Procedure Only (Routine) - Pending Review Specialty Diagnoses / Procedures Referred By Contac t Referred To Contact [facility] Diagnoses Encounter for supervision of normal in multigravida in first trimester Procedures NUCHAL TRANSLUCENCY WHI US NUCHAL TRANSLUCENCY GESTATION Alfredo Benitez MD [address] [place] [address] [facility] [address] [place] [address] Referral ID Status Reason Start Date Expiration Date Visits Requested Visits Authorized [id number] Pending Review Auto-Generat ed Referral 01/20/2022 01/20/2023 1 1 [facility] for referral (narrative)* Diagnostic Procedure Only (Routine) - Pending Review Specialty Diagnoses / Procedures Referred By Contac t Referred To [facility] Diagnoses Supervision of other high risk pregnancies, first trimester Encounter for screening of mother Procedures OBSTETRIC ULTRASOUND WHI US PREG UTERUS AFTER 1ST TRIMEST GESTATION Kayla Robb MD [address] [place] [address] [facility] [address] [place] [address] Referral ID Status Reason Start Date Expiration Date Visits Requested Visits Authorized [id number] Pending Review Auto-Generat ed Referral 02/17/2022 02/17/2023 1 1 * Diagnostic Procedure Only (Routine) - Closed Specialty Diagnoses / Procedures Referred By Татьяна t Referred To Contact [facility] Diagnoses 13 weeks gestation of Supervision of other high risk pregnancies, first trimester Encounter for screening of mother Procedures NUCHAL TRANSLUCENCY WHI US NUCHAL TRANSLUCENCY GESTATION Kayla Robb MD [address] [place] [address] [facility] [employer] [place] [address] Referral ID Status Reason Start Date Expiration Date V isits Requested Visits Authorized [id number] Closed Auto-Generate d Referral 02/17/2022 02/17/2023 1 1 [facility] for referral (narrative)* Diagnostic Procedure Only (Routine) - Pending Review Specialty Diagnoses / Procedures Referred By Татьяна escobar Referred To Contact [facility] Diagnoses Supervision of high risk in third trimester 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, single or unspecified fetus 31 weeks gestation of Procedures OBSTETRIC ULTRASOUND WHI US PREG UTERUS AFTER 1ST TRIMEST GESTATION Kayla Robb MD [address] [place] [address] [facility] [address] [place] [address] Referral ID Status Reason Start Date Expiration Date Visits Requested Visits Authorized [id number] Pending Review Auto-Generat ed Referral 06/25/2023 1 1 [facility] for referral (narrative)* Diagnostic Procedure Only (Routine) - Pending Review Specialty Diagnoses / Procedures Referred By Contac t Referred To Contact [facility] Diagnoses 31 weeks gestation of High-risk in third trimester 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, single or unspecified fetus Procedures OBSTETRIC ULTRASOUND WHI US PREG UTERUS AFTER 1ST TRIMEST GESTATION Kayla Robb MD [address] [place] [address] [facility] [address] [place] [address] Referral ID Status Reason Start Date Expiration Date Visits Requested Visits Authorized [id number] Pending Review Auto-Generat ed Referral 06/26/2023 1 1 T [facility] for referral (narrative)* Outpatient Procedure (Routine) - Pending Review Specialty Diagnoses / Procedures Referred By Contac t Referred To Contact [facility] Diagnoses Nexplanon insertion Procedures NEXPLANON REMOVAL REMOVAL NON-BIODEGRADABLE DRUG DELIVERY IMPLANT Kayla Robb MD [address] [place] [address] [facility] [address] [place] [address] Referral ID Status Reason Start Date Expiration Date Visits Requested Visits Authorized [id number] Pending Review Auto-Generat ed Referral 01/08/2023 01/08/2024 1 1 T [facility] for referral (narrative)* Diagnostic Procedure Only (Routine) - Closed Specialty Diagnoses / Procedures Referred By Contac t Referred To Contact [facility] Diagnoses Chronic hepatitis C without hepatic coma (HCC) Procedures US ABD RT UPPER QUADRANT US ABDOMINAL REAL TIME W/IMAGE LIMITED Abimbola Valenzuela PA-C [address] [place] [address] [place] [address] Referral ID Status Reason Start Date Expiration Date V isits Requested Visits Authorized [id number] Closed Auto-Generate d Referral 10/14/2022 11/13/2023 1 1 [facility] for referral (narrative)* Diagnostic Procedure Only (Routine) - Authorized Specialty Diagnoses / Procedures Referred By Nghiaac t Referred To Contact [facility] Diagnoses Encounter for supervision of high risk in first trimester, antepartum Procedures NUCHAL TRANSLUCENCY WHI US NUCHAL TRANSLUCENCY 1ST GESTATION Rylee Scott APRN.CNP [address] [place] [address] [id number] [place] [address] Referral ID Status Reason Start Date Expiration Date Visits Requested Visits Authorized [id number] Authorized Auto-Generat ed Referral 4 08/02/2025 1 1 * Diagnostic Procedure Only (Routine) - Authorized Specialty Diagnoses / Procedures Referred By Татьяна t Referred To Contact [facility] Diagnoses Encounter for supervision of high risk in first trimester, antepartum Procedures OBSTETRIC ULTRASOUND WHI US PREG UTERUS AFTER 1ST TRIMEST GESTATION Rylee Scott APRN.CNP [address] 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 [address] [facility] [address] [place] [address] Referral ID Status Reason Start Date Expiration Date V isits Requested Visits Authorized [id number] Closed Auto-Generate d Referral 07/03/2022 07/03/2023 [address] [facility] Outpatient Procedure (Routine) - Closed Specialty Diagnoses / Procedures Referred By Contac t Referred To Contact [facility] Diagnoses Chronic hepatitis C without hepatic coma (HCC) Procedures DDI VIBRATION CONTROLLED TRANSIENT ELASTOGRAPHY (VCTE) LIVER ELASTOGRAPHY W/O IMAG W/I&R Abimbola Valenzuela PA-C [address] [place] [address] [facility] [address] [address] Referral ID Status Reason Start Date Expiration Date V isits Requested Visits Authorized [id number] Closed Auto-Generate d Referral 10/14/2022 10/14/2023 [address] [facility] Summary Purpose Family History Relationship Condition Age at Onset Recorded Date/T noah Unknown Family History?- Unknown February 02, 2 015 9:41am Family History?- Unknown February 03, 2 015 8:45am Relationship Condition Age at Onset Recorded Date/T noah Unknown Family History?- Unknown February 02, 2 015 8:41am Family History?- Unknown February 03, 015 7:45am Advance Directives Advance Directive Response Recorded Date/ Time Advance Directives No February 03 12:02am Living Will No December 23, 2021 8:31pm Power [employer] No December 23 8:31pm Advance Directive Response Recorded Date/ Time Advance Directives No February 03 12:02am Living Will No January 26, 2022 1 1:10pm [employer] No January 26, 2022 11:10pm Advance Directive Response Recorded Date/ Time Advance Directives No February 03 5 12:02am Living Will No May 07 11:07pm [employer] No May 07, 2022 11:07pm Advance Directive Response Recorded Date/ Time Advance Directives No May 30th, 201 5 11:02pm Living Will No August 05, 2 022 7:16am [employer] No August 05, 2022 7:16am Chief Complaint and Reason for Visit Chief Complaint vaginal bleeding Chief Complaint vaginal bleeding n/v Chief Complaint n/v abd cramping, 14 wks preg, nausea covid rapid test, needed for housing sob Reason for Visit Encounter for screen ing laboratory testing for COVID-19 virus Chief Complaint abd cramping, 14 wks preg, nausea covid rapid test, needed for housing sob R/O LABOR Reason for Visit Encounter for screen ing laboratory testing for COVID-19 virus Chief Complaint sob R/O LABOR VAG Reason for Visit 31 weeks gestation o f History of labor Pelvic cramping Round ligament pain 37 weeks gestation of 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 Hepatitis C, chronic, maternal, antepartum High risk multigravida (spontaneous vaginal delivery) Medications Administered Section Inactive Administered Medications - up to 3 most recent administrations Medication Order MAR Action Action Date Dose Rate Site cefTRIAXone 500 mg intramuscular injection (ROCEPHIN) 500 mg, INTRAMUSCULAR, ONCE, 1 dose, On Wed01/20/22 at 1430, Please document the antimicrobial indication: Empiric Given 01/20/2022 2:15 PM EDT 500 mg Buttocks, Left Inactive Administered Medications - up to 3 most recent administrations Medication Order MAR Action Action Date Dose Rate Site cefTRIAXone 500 mg intramuscular injection (ROCEPHIN) 500 mg, INTRAMUSCULAR, ONCE, 1 dose, On Wed02/17/22 at 1200, Please document the antimicrobial indication: Empiric Given 02/17/2022 12:03 PM EDT 500 mg Buttocks, Right Reason for Referral Specialty Diagnoses / Procedures Referred By Contleena t Referred To Contact Diagnoses Chronic active hepatitis (HCC) Procedures CONSULT TO HEPATOLOGY OFFICE/OUTPATIENT [facility] 60-74 MINUTES Kayla Robb MD [facility] [address] Referral ID Status Reason Start Date Expiration Date Visits Requested Visits Authorized [id number] Authorized PCP Requested Referral 08/12/2022 08/12/2023 1 1 Additional Source Comments INFORMATION SOURCE (unrecogn ized section and content) DATE CREATED AUTHOR 03/01/2018 [facility] DATE CREATED AUTHOR AUTHOR'S ORGANIZ ATION 03/01/2018 [facility] ([place]) DATE CREATED AUTHOR AUTHOR'S ORGANIZ ATION 03/22/2023 [facility] DATE CREATED AUTHOR AUTHOR'S ORGANIZ ATION 12/10/2024 [facility] DATE CREATED AUTHOR AUTHOR'S ORGANIZ ATION 03/09/2025 [facility] Source Comments (unrecognize d section and content) In the event this informatio n is protected by the Federal Confidentiality of Alcohol and Drug Abuse Patient Records regulations: The Federal rules restrict any use of the information to criminally investigate or prosecute any alcohol or drug abuse patient.[facility] HospitalIn the event this information is protected by the Federal Confidentiality of Alcohol and Drug Abuse Patient Records regulations: The Federal rules restrict any use of the information to criminally investigate or prosecute any alcohol or drug abuse patient.[facility] HospitalIn the event this information is protected by the Federal Confidentiality of Alcohol and Drug Abuse Patient Records regulations: The Federal rules restrict any use of the information to criminally investigate or prosecute any alcohol or drug abuse patient.[facility] HospitalIn the event this information is protected by the Federal Confidentiality of Alcohol and Drug Abuse Patient Records regulations: The Federal rules restrict any use of the information to criminally investigate or prosecute any alcohol or drug abuse patient.[facility] HospitalIn the event this information is protected by the Federal Confidentiality of Alcohol and Drug Abuse Patient Records regulations: The Federal rules restrict any use of the information to criminally investigate or prosecute any alcohol or drug abuse patient.[facility] HospitalIn the event this information is protected by the Federal Confidentiality of Alcohol and Drug Abuse Patient Records regulations: The Federal rules restrict any use of the information to criminally investigate or prosecute any alcohol or drug abuse patient.[facility] HospitalIn the event this information is protected by the Federal Confidentiality of Alcohol and Drug Abuse Patient Records regulations: The Federal rules restrict any use of the information to criminally investigate or prosecute any alcohol or drug abuse patient.[facility] HospitalIn the event this information is protected by the Federal Confidentiality of Alcohol and Drug Abuse Patient Records regulations: The Federal rules restrict any use of the information to criminally investigate or prosecute any alcohol or drug abuse patient.[facility] HospitalIn the event this information is protected by the Federal Confidentiality of Alcohol and Drug Abuse Patient Records regulations: The Federal rules restrict any use of the information to criminally investigate or prosecute any alcohol or drug abuse patient.[facility] HospitalIn the event this information is protected by the Federal Confidentiality of Alcohol and Drug Abuse Patient Records regulations: The Federal rules restrict any use of the information to criminally investigate or prosecute any alcohol or drug abuse patient.[facility] HospitalIn the event this information is protected by the Federal Confidentiality of Alcohol and Drug Abuse Patient Records regulations: The Federal rules restrict any use of the information to criminally investigate or prosecute any alcohol or drug abuse patient.[facility] HospitalIn the event this information is protected by the Federal Confidentiality of Alcohol and Drug Abuse Patient Records regulations: The Federal rules restrict any use of the information to criminally investigate or prosecute any alcohol or drug abuse patient.[facility] HospitalIn the event this information is protected by the Federal Confidentiality of Alcohol and Drug Abuse Patient Records regulations: The Federal rules restrict any use of the information to criminally investigate or prosecute any alcohol or drug abuse patient.[facility] HospitalIn the event this information is protected by the Federal Confidentiality of Alcohol and Drug Abuse Patient Records regulations: The Federal rules restrict any use of the information to criminally investigate or prosecute any alcohol or drug abuse patient.[facility] HospitalIn the event this information is protected by the Federal Confidentiality of Alcohol and Drug Abuse Patient Records regulations: The Federal rules restrict any use of the information to criminally investigate or prosecute any alcohol or drug abuse patient.[facility] HospitalIn the event this information is protected by the Federal Confidentiality of Alcohol and Drug Abuse Patient Records regulations: The Federal rules restrict any use of the information to criminally investigate or prosecute any alcohol or drug abuse patient.[facility] HospitalIn the event this information is protected by the Federal Confidentiality of Alcohol and Drug Abuse Patient Records regulations: The Federal rules restrict any use of the information to criminally investigate or prosecute any alcohol or drug abuse patient.[facility] HospitalIn the event this information is protected by the Federal Confidentiality of Alcohol and Drug Abuse Patient Records regulations: The Federal rules restrict any use of the information to criminally investigate or prosecute any alcohol or drug abuse patient.[facility] HospitalIn the event this information is protected by the Federal Confidentiality of Alcohol and Drug Abuse Patient Records regulations: The Federal rules restrict any use of the information to criminally investigate or prosecute any alcohol or drug abuse patient.[facility] HospitalIn the event this information is protected by the Federal Confidentiality of Alcohol and Drug Abuse Patient Records regulations: The Federal rules restrict any use of the information to criminally investigate or prosecute any alcohol or drug abuse patient.[facility] HospitalIn the event this information is protected by the Federal Confidentiality of Alcohol and Drug Abuse Patient Records regulations: The Federal rules restrict any use of the information to criminally investigate or prosecute any alcohol or drug abuse patient.[facility] HospitalIn the event this information is protected by the Federal Confidentiality of Alcohol and Drug Abuse Patient Records regulations: The Federal rules restrict any use of the information to criminally investigate or prosecute any alcohol or drug abuse patient.[facility] HospitalIn the event this information is protected by the Federal Confidentiality of Alcohol and Drug Abuse Patient Records regulations: The Federal rules restrict any use of the information to criminally investigate or prosecute any alcohol or drug abuse patient.[facility] HospitalIn the event this information is protected by the Federal Confidentiality of Alcohol and Drug Abuse Patient Records regulations: The Federal rules restrict any use of the information to criminally investigate or prosecute any alcohol or drug abuse patient.[facility] HospitalIn the event this information is protected by the Federal Confidentiality of Alcohol and Drug Abuse Patient Records regulations: The Federal rules restrict any use of the information to criminally investigate or prosecute any alcohol or drug abuse patient.[facility] HospitalIn the event this information is protected by the Federal Confidentiality of Alcohol and Drug Abuse Patient Records regulations: The Federal rules restrict any use of the information to criminally investigate or prosecute any alcohol or drug abuse patient.[facility] HospitalIn the event this information is protected by the Federal Confidentiality of Alcohol and Drug Abuse Patient Records regulations: The Federal rules restrict any use of the information to criminally investigate or prosecute any alcohol or drug abuse patient.[facility] HospitalIn the event this information is protected by the Federal Confidentiality of Alcohol and Drug Abuse Patient Records regulations: The Federal rules restrict any use of the information to criminally investigate or prosecute any alcohol or drug abuse patient.[facility] HospitalIn the event this information is protected by the Federal Confidentiality of Alcohol and Drug Abuse Patient Records regulations: The Federal rules restrict any use of the information to criminally investigate or prosecute any alcohol or drug abuse patient.[facility] HospitalIn the event this information is protected by the Federal Confidentiality of Alcohol and Drug Abuse Patient Records regulations: The Federal rules restrict any use of the information to criminally investigate or prosecute any alcohol or drug abuse patient.[facility] HospitalIn the event this information is protected by the Federal Confidentiality of Alcohol and Drug Abuse Patient Records regulations: The Federal rules restrict any use of the information to criminally investigate or prosecute any alcohol or drug abuse patient.[facility] HospitalIn the event this information is protected by the Federal Confidentiality of Alcohol and Drug Abuse Patient Records regulations: The Federal rules restrict any use of the information to criminally investigate or prosecute any alcohol or drug abuse patient.[facility] HospitalIn the event this information is protected by the Federal Confidentiality of Alcohol and Drug Abuse Patient Records regulations: The Federal rules restrict any use of the information to criminally investigate or prosecute any alcohol or drug abuse patient.[facility] HospitalIn the event this information is protected by the Federal Confidentiality of Alcohol and Drug Abuse Patient Records regulations: The Federal rules restrict any use of the information to criminally investigate or prosecute any alcohol or drug abuse patient.[facility] HospitalIn the event this information is protected by the Federal Confidentiality of Alcohol and Drug Abuse Patient Records regulations: The Federal rules restrict any use of the information to criminally investigate or prosecute any alcohol or drug abuse patient.[facility] HospitalIn the event this information is protected by the Federal Confidentiality of Alcohol and Drug Abuse Patient Records regulations: The Federal rules restrict any use of the information to criminally investigate or prosecute any alcohol or drug abuse patient.[facility] HospitalIn the event this information is protected by the Federal Confidentiality of Alcohol and Drug Abuse Patient Records regulations: The Federal rules restrict any use of the information to criminally investigate or prosecute any alcohol or drug abuse patient.[facility] HospitalIn the event this information is protected by the Federal Confidentiality of Alcohol and Drug Abuse Patient Records regulations: The Federal rules restrict any use of the information to criminally investigate or prosecute any alcohol or drug abuse patient.[facility] HospitalIn the event this information is protected by the Federal Confidentiality of Alcohol and Drug Abuse Patient Records regulations: The Federal rules restrict any use of the information to criminally investigate or prosecute any alcohol or drug abuse patient.[facility] HospitalIn the event this information is protected by the Federal Confidentiality of Alcohol and Drug Abuse Patient Records regulations: The Federal rules restrict any use of the information to criminally investigate or prosecute any alcohol or drug abuse patient.[facility] HospitalIn the event this information is protected by the Federal Confidentiality of Alcohol and Drug Abuse Patient Records regulations: The Federal rules restrict any use of the information to criminally investigate or prosecute any alcohol or drug abuse patient.[facility] HospitalIn the event this information is protected by the Federal Confidentiality of Alcohol and Drug Abuse Patient Records regulations: The Federal rules restrict any use of the information to criminally investigate or prosecute any alcohol or drug abuse patient.[facility] HospitalIn the event this information is protected by the Federal Confidentiality of Alcohol and Drug Abuse Patient Records regulations: The Federal rules restrict any use of the information to criminally investigate or prosecute any alcohol or drug abuse patient.[facility] HospitalIn the event this information is protected by the Federal Confidentiality of Alcohol and Drug Abuse Patient Records regulations: The Federal rules restrict any use of the information to criminally investigate or prosecute any alcohol or drug abuse patient.[facility] HospitalIn the event this information is protected by the Federal Confidentiality of Alcohol and Drug Abuse Patient Records regulations: The Federal rules restrict any use of the information to criminally investigate or prosecute any alcohol or drug abuse patient.[facility] HospitalIn the event this information is protected by the Federal Confidentiality of Alcohol and Drug Abuse Patient Records regulations: The Federal rules restrict any use of the information to criminally investigate or prosecute any alcohol or drug abuse patient.[facility] HospitalIn the event this information is protected by the Federal Confidentiality of Alcohol and Drug Abuse Patient Records regulations: The Federal rules restrict any use of the information to criminally investigate or prosecute any alcohol or drug abuse patient.[facility] HospitalIn the event this information is protected by the Federal Confidentiality of Alcohol and Drug Abuse Patient Records regulations: The Federal rules restrict any use of the information to criminally investigate or prosecute any alcohol or drug abuse patient.[facility] HospitalIn the event this information is protected by the Federal Confidentiality of Alcohol and Drug Abuse Patient Records regulations: The Federal rules restrict any use of the information to criminally investigate or prosecute any alcohol or drug abuse patient.[facility] HospitalIn the event this information is protected by the Federal Confidentiality of Alcohol and Drug Abuse Patient Records regulations: The Federal rules restrict any use of the information to criminally investigate or prosecute any alcohol or drug abuse patient.[facility] HospitalIn the event this information is protected by the Federal Confidentiality of Alcohol and Drug Abuse Patient Records regulations: The Federal rules restrict any use of the information to criminally investigate or prosecute any alcohol or drug abuse patient.[facility] HospitalIn the event this information is protected by the Federal Confidentiality of Alcohol and Drug Abuse Patient Records regulations: The Federal rules restrict any use of the information to criminally investigate or prosecute any alcohol or drug abuse patient.[facility] HospitalIn the event this information is protected by the Federal Confidentiality of Alcohol and Drug Abuse Patient Records regulations: The Federal rules restrict any use of the information to criminally investigate or prosecute any alcohol or drug abuse patient.[facility] HospitalIn the event this information is protected by the Federal Confidentiality of Alcohol and Drug Abuse Patient Records regulations: The Federal rules restrict any use of the information to criminally investigate or prosecute any alcohol or drug abuse patient.[facility] HospitalIn the event this information is protected by the Federal Confidentiality of Alcohol and Drug Abuse Patient Records regulations: The Federal rules restrict any use of the information to criminally investigate or prosecute any alcohol or drug abuse patient.[facility] HospitalIn the event this information is protected by the Federal Confidentiality of Alcohol and Drug Abuse Patient Records regulations: The Federal rules restrict any use of the information to criminally investigate or prosecute any alcohol or drug abuse patient.[facility] HospitalIn the event this information is protected by the Federal Confidentiality of Alcohol and Drug Abuse Patient Records regulations: The Federal rules restrict any use of the information to criminally investigate or prosecute any alcohol or drug abuse patient.[facility] HospitalIn the event this information is protected by the Federal Confidentiality of Alcohol and Drug Abuse Patient Records regulations: The Federal rules restrict any use of the information to criminally investigate or prosecute any alcohol or drug abuse patient.[facility] HospitalIn the event this information is protected by the Federal Confidentiality of Alcohol and Drug Abuse Patient Records regulations: The Federal rules restrict any use of the information to criminally investigate or prosecute any alcohol or drug abuse patient.[facility] HospitalIn the event this information is protected by the Federal Confidentiality of Alcohol and Drug Abuse Patient Records regulations: The Federal rules restrict any use of the information to criminally investigate or prosecute any alcohol or drug abuse patient.[facility] HospitalIn the event this information is protected by the Federal Confidentiality of Alcohol and Drug Abuse Patient Records regulations: The Federal rules restrict any use of the information to criminally investigate or prosecute any alcohol or drug abuse patient.[facility] HospitalIn the event this information is protected by the Federal Confidentiality of Alcohol and Drug Abuse Patient Records regulations: The Federal rules restrict any use of the information to criminally investigate or prosecute any alcohol or drug abuse patient.[facility] HospitalIn the event this information is protected by the Federal Confidentiality of Alcohol and Drug Abuse Patient Records regulations: The Federal rules restrict any use of the information to criminally investigate or prosecute any alcohol or drug abuse patient.[facility] HospitalIn the event this information is protected by the Federal Confidentiality of Alcohol and Drug Abuse Patient Records regulations: The Federal rules restrict any use of the information to criminally investigate or prosecute any alcohol or drug abuse patient.[facility] HospitalIn the event this information is protected by the Federal Confidentiality of Alcohol and Drug Abuse Patient Records regulations: The Federal rules restrict any use of the information to criminally investigate or prosecute any alcohol or drug abuse patient.[facility] HospitalIn the event this information is protected by the Federal Confidentiality of Alcohol and Drug Abuse Patient Records regulations: The Federal rules restrict any use of the information to criminally investigate or prosecute any alcohol or drug abuse patient.[facility] HospitalIn the event this information is protected by the Federal Confidentiality of Alcohol and Drug Abuse Patient Records regulations: The Federal rules restrict any use of the information to criminally investigate or prosecute any alcohol or drug abuse patient.[facility] HospitalIn the event this information is protected by the Federal Confidentiality of Alcohol and Drug Abuse Patient Records regulations: The Federal rules restrict any use of the information to criminally investigate or prosecute any alcohol or drug abuse patient.[facility] HospitalIn the event this information is protected by the Federal Confidentiality of Alcohol and Drug Abuse Patient Records regulations: The Federal rules restrict any use of the information to criminally investigate or prosecute any alcohol or drug abuse patient.[facility] HospitalIn the event this information is protected by the Federal Confidentiality of Alcohol and Drug Abuse Patient Records regulations: The Federal rules restrict any use of the information to criminally investigate or prosecute any alcohol or drug abuse patient.[facility] HospitalIn the event this information is protected by the Federal Confidentiality of Alcohol and Drug Abuse Patient Records regulations: The Federal rules restrict any use of the information to criminally investigate or prosecute any alcohol or drug abuse patient.[facility] HospitalIn the event this information is protected by the Federal Confidentiality of Alcohol and Drug Abuse Patient Records regulations: The Federal rules restrict any use of the information to criminally investigate or prosecute any alcohol or drug abuse patient.[facility] HospitalIn the event this information is protected by the Federal Confidentiality of Alcohol and Drug Abuse Patient Records regulations: The Federal rules restrict any use of the information to criminally investigate or prosecute any alcohol or drug abuse patient.[facility] HospitalIn the event this information is protected by the Federal Confidentiality of Alcohol and Drug Abuse Patient Records regulations: The Federal rules restrict any use of the information to criminally investigate or prosecute any alcohol or drug abuse patient.[facility] HospitalIn the event this information is protected by the Federal Confidentiality of Alcohol and Drug Abuse Patient Records regulations: The Federal rules restrict any use of the information to criminally investigate or prosecute any alcohol or drug abuse patient.[facility] HospitalIn the event this information is protected by the Federal Confidentiality of Alcohol and Drug Abuse Patient Records regulations: The Federal rules restrict any use of the information to criminally investigate or prosecute any alcohol or drug abuse patient.[facility] HospitalIn the event this information is protected by the Federal Confidentiality of Alcohol and Drug Abuse Patient Records regulations: The Federal rules restrict any use of the information to criminally investigate or prosecute any alcohol or drug abuse patient.[facility] HospitalIn the event this information is protected by the Federal Confidentiality of Alcohol and Drug Abuse Patient Records regulations: The Federal rules restrict any use of the information to criminally investigate or prosecute any alcohol or drug abuse patient.[facility] HospitalIn the event this information is protected by the Federal Confidentiality of Alcohol and Drug Abuse Patient Records regulations: The Federal rules restrict any use of the information to criminally investigate or prosecute any alcohol or drug abuse patient.[facility] HospitalIn the event this information is protected by the Federal Confidentiality of Alcohol and Drug Abuse Patient Records regulations: The Federal rules restrict any use of the information to criminally investigate or prosecute any alcohol or drug abuse patient.[facility] HospitalIn the event this information is protected by the Federal Confidentiality of Alcohol and Drug Abuse Patient Records regulations: The Federal rules restrict any use of the information to criminally investigate or prosecute any alcohol or drug abuse patient.[facility] HospitalIn the event this information is protected by the Federal Confidentiality of Alcohol and Drug Abuse Patient Records regulations: The Federal rules restrict any use of the information to criminally investigate or prosecute any alcohol or drug abuse patient.[facility] HospitalIn the event this information is protected by the Federal Confidentiality of Alcohol and Drug Abuse Patient Records regulations: The Federal rules restrict any use of the information to criminally investigate or prosecute any alcohol or drug abuse patient.[facility] HospitalIn the event this information is protected by the Federal Confidentiality of Alcohol and Drug Abuse Patient Records regulations: The Federal rules restrict any use of the information to criminally investigate or prosecute any alcohol or drug abuse patient.[facility] HospitalIn the event this information is protected by the Federal Confidentiality of Alcohol and Drug Abuse Patient Records regulations: The Federal rules restrict any use of the information to criminally investigate or prosecute any alcohol or drug abuse patient.[facility] HospitalIn the event this information is protected by the Federal Confidentiality of Alcohol and Drug Abuse Patient Records regulations: The Federal rules restrict any use of the information to criminally investigate or prosecute any alcohol or drug abuse patient.[facility] HospitalIn the event this information is protected by the Federal Confidentiality of Alcohol and Drug Abuse Patient Records regulations: The Federal rules restrict any use of the information to criminally investigate or prosecute any alcohol or drug abuse patient.[facility] HospitalIn the event this information is protected by the Federal Confidentiality of Alcohol and Drug Abuse Patient Records regulations: The Federal rules restrict any use of the information to criminally investigate or prosecute any alcohol or drug abuse patient.[facility] HospitalIn the event this information is protected by the Federal Confidentiality of Alcohol and Drug Abuse Patient Records regulations: The Federal rules restrict any use of the information to criminally investigate or prosecute any alcohol or drug abuse patient.[facility] HospitalIn the event this information is protected by the Federal Confidentiality of Alcohol and Drug Abuse Patient Records regulations: The Federal rules restrict any use of the information to criminally investigate or prosecute any alcohol or drug abuse patient.[facility] Reason for Visit (unrecogniz ed section and content) Reason Comments Future Appointment Reason Comments Missed Appointment Reason Comments Initial OB Visit Reason Onset Date Comments Care 01/20/2022 Reason Comments Results Reason Comments PRAF FORM Reason Onset Date Comments Care 02/17/2022 Reason Comments US Specialty Diagnoses / Procedures Referred By Contac t Referred To Contact [facility] Diagnoses 13 weeks gestation of Supervision of other high risk pregnancies, first trimester Encounter for screening of mother Procedures NUCHAL TRANSLUCENCY WHI US NUCHAL TRANSLUCENCY 1ST GESTATION Kayla Robb MD [address] [address] [facility] [address] [place] [address] Referral ID Status Reason Start Date Expiration Date V isits Requested Visits Authorized [id number] Closed Auto-Generate d Referral 02/17/2022 02/17/2023 1 1 Reason Comments Patient Update Reason Comments First Seq Results Reason Comments Patient Question Reason Onset Date Comments Care 03/17/2022 Specialty Diagnoses / Procedures Referred By Nghiaac t Referred To Contact [facility] Diagnoses Supervision of other high risk pregnancies, first trimester Encounter for screening of mother Procedures OBSTETRIC ULTRASOUND WHI US PREG UTERUS AFTER 1ST TRIMEST GESTATION Kayla Robb MD [address] [place] [address] [address] Referral ID Status Reason Start Date Expiration Date V isits Requested Visits Authorized [id number] Closed Auto-Generate d Referral 02/17/2022 02/17/2023 1 1 Reason Onset Date Comments Care 04/24/2022 Reason Comments Medication Question Reason Onset Date Comments Care 05/25/2022 Reason Onset Date Comments Care 06/10/2022 Reason Comments Orders Reason Onset Date Comments Care 06/26/2022 Specialty Diagnoses / Procedures Referred By Татьяна t Referred To Contact [facility] Diagnoses Supervision of high risk in third trimester 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, single or unspecified fetus 31 weeks gestation of Procedures OBSTETRIC ULTRASOUND WHI US PREG UTERUS AFTER 1ST TRIMEST GESTATION Kayla Robb MD [address] [place] [address] [address] Referral ID Status Reason Start Date Expiration Date V isits Requested Visits Authorized [id number] Closed Auto-Generate d Referral 06/26/2022 06/25/2023 1 1 Reason Onset Date Comments Care 07/07/2022 Specialty Diagnoses / Procedures Referred By Nghiaac t Referred To Contact [facility] Diagnoses 31 weeks gestation of High-risk in third trimester 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, single or unspecified fetus Procedures BIOPHYSICAL PROFILE US [facility] BIOPHYSICAL PROFILE NON-STRESS TESTING Kayla Robb MD [address] [place] [address] [facility] [address] [place] [address] Referral ID Status Reason Start Date Expiration Date V isits Requested Visits Authorized [id number] Closed Auto-Generate d Referral 07/03/2022 07/03/2023 10 1 Reason Onset Date Comments Care 07/21/2022 Reason Onset Date Comments Care 07/29/2022 Reason Comments Ob Delivery Note Reason Comments Early Reason Comments Routine Reason Onset Date Comments Refill Request 12/01/2022 Reason Comments Medication Update Reason Onset Date Comments Refill Request 01/05/2023 Reason Comments Medication Question Reason Comments Information Reason Comments Radiology US Specialty Diagnoses / Procedures Referred By Contac t Referred To Contact [facility] Diagnoses Chronic hepatitis C without hepatic coma (HCC) Procedures US ABD RT UPPER QUADRANT US ABDOMINAL REAL TIME W/IMAGE LIMITED Abimbola Valenzuela PA-C [address] [place] [address] [facility] [place] [address] Referral ID Status Reason Start Date Expiration Date V isits Requested Visits Authorized [id number] Closed Auto-Generate d Referral 10/14/2022 11/13/2023 1 1 Reason Comments Cough Congestion and wheez ing x1 week. Reason Comments Sore Throat Headache, fever, bod yaches, x 3 daysExposed to strep Reason Comments Needs a letter for new SS card Reason Comments Cough Chest congestion, ru nny nose, AGGARWAL x2 days Reason Comments Appointment Reason Comments Initial OB Visit Reason Comments PRAF Specialty Diagnoses / Procedures Referred By Contac t Referred To Contact [facility] Diagnoses Encounter for supervision of high risk in first trimester, antepartum Procedures NUCHAL TRANSLUCENCY WHI US NUCHAL TRANSLUCENCY 1ST GESTATION Rylee Scott APRN.ELECTRIC LOCOMOTIVE CRANE OPERATOR [address] [place] [address] [address] Referral ID Status Reason Start Date Expiration Date V isits Requested Visits Authorized [id number] Closed Auto-Generate d Referral 08/02/2024 08/02/2025 1 1 Reason Onset Date Comments Care 09/13/2024 Reason Onset Date Comments Refill Request 09/19/2024 Reason Onset Date Comments Refill Request 09/22/2024 Reason Comments Cough Cough, chest congest ion and wheezing x 2 weeks Reason Onset Date Comments Care 10/11/2024 Reason Comments OB Question about Results Reason Onset Date Comments Care 11/08/2024 Specialty Diagnoses / Procedures Referred By Contac t Referred To Contact [facility] Diagnoses Encounter for supervision of high risk in first trimester, antepartum Procedures OBSTETRIC ULTRASOUND WHI US PREG UTERUS AFTER 1ST TRIMEST GESTATION Rylee Scott APRN.ELECTRIC LOCOMOTIVE CRANE OPERATOR [address] [place] [address] Phone: tel: fax: [address] [address] Referral ID Status Reason Start Date Expiration Date V isits Requested Visits Authorized [id number] Closed Auto-Generate d Referral 08/02/2024 08/02/2025 1 1 Specialty Diagnoses / Procedures Referred By Contac t Referred To Contact [facility] Diagnoses Maternal care for isoimmunization, second trimester, single gestation Supervision of high risk in second trimester Procedures OBSTETRIC ULTRASOUND WHI US PREG UTERUS AFTER 1ST TRIMEST GESTATION Kayla Robb MD [address] [place] [address] Phone: tel: fax: [address] [address] Referral ID Status Reason Start Date Expiration Date V isits Requested Visits Authorized [id number] Closed Auto-Generate d Referral 11/07/2024 11/07/2025 10 1 Reason Comments Consult Specialty Diagnoses / Procedures Referred By Contac t Referred To Contact Diagnoses Maternal care for isoimmunization, second trimester, single gestation Procedures CONSULT TO MATERNAL MEDI OFFICE/OUTPATIENT [facility] 60 MINUTES Kayla Robb MD [address] [place] [address] Phone: tel: fax:[phone] Referral ID Status Reason Start Date Expiration Date V isits Requested Visits Authorized [id number] Closed PCP Requested Referral Auto-Generated Referral 11/07/2024 11/07/2025 1 1 Reason Comments OB Navigation and Pr egnancy Resources Reason Comments Care Specialty Diagnoses / Procedures Referred By Contac t Referred To Contact Diagnoses 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, second trimester, fetus 5 Procedures CONSULT TO MEDICAL GENETICS - MEDICAL GENETICS COUNSELING EACH [address] [place] [address] [place] [address] Phone: tel: fax: Genetic [address] [address] Referral ID Status Reason Start Date Expiration Date V isits Requested Visits Authorized [id number] Closed PCP Requested Referral Auto-Generated Referral 11/23/2024 11/23/2025 1 1 Reason Onset Date Comments Care 12/06/2024 Specialty Diagnoses / Procedures Referred By Contac t Referred To Contact [facility] Diagnoses Maternal care for isoimmunization, second trimester, single gestation (HCC) Supervision of high risk in second trimester (HCC) Procedures OBSTETRIC ULTRASOUND WHI US PREG UTERUS AFTER 1ST TRIMEST GESTATION Kayla Robb MD [address] [place] [address] Phone: tel: fax: [facility] [address] [place] [address] Reason Onset Date Comments Care 12/20/2024 Reason Comments Follow Up Phone Call 28-32 week follow u p call with OB Navigator Reason Onset Date Comments WOC Appointments 11/07/2024 OB US q 2 weeks Reason Onset Date Comments Care 01/17/2025 Reason Onset Date Comments Care 01/31/2025 Reason Onset Date Comments Care 02/14/2025 Reason Onset Date Comments Care 03/01/2025 Reason Onset Date Comments Care 03/07/2025 Reason Onset Date Comments Care 03/13/2025 Reason Comments OB spotting Goals (unrecognized section and content) Goals may be documented in a n alternate sectionGoals may be documented in an alternate sectionGoals may be documented in an alternate sectionGoals may be documented in an alternate section Care Teams (unrecognized sec tion and content) Handle Lathe Operator Relationship Specialty Start Date End Date Tereso Shaikh MD [address] [place] [address] PCP - General Internal Medicine 02/10/23 Handle Lathe Operator Relationship Specialty Start Date End Date Tereso Shaikh MD [address] [place], [place] [id number] PCP - General Internal Medicine 02/10/23 Handle Lathe Operator Relationship Specialty Start Date End Date Tereso Shaikh MD [address] [place] [address] PCP - General Internal Medicine 02/10/23 Handle Lathe Operator Relationship Specialty Start Date End Date Tereso Shaikh MD [address] [place] [address] PCP - General Internal Medicine 02/10/23 Handle Lathe Operator Relationship Specialty Start Date End Date Tereso Shaikh MD [address] [place], [place] [address] PCP - General Internal Medicine 02/10/23 Handle Lathe Operator Relationship Specialty Start Date End Date Tereso Shaikh MD [address] [place] [address] PCP - General Internal Medicine 02/10/23 Maria Guadalupe Rivers, MD ALLERGY IMMUNOLOGY.ELECTRIC LOCOMOTIVE CRANE OPERATOR [address] [facility] [address] Playground Aide Internal Medicine 08/14/24 Handle Lathe Operator Relationship Specialty Start Date End Date Tereso Shiakh MD [address] [facility] [address] PCP - General Internal Medicine 02/10/23 Maria Guadalupe Rivers, MD ALLERGY IMMUNOLOGY.ELECTRIC LOCOMOTIVE CRANE OPERATOR [address] [facility] [address] Playground Aide Internal Medicine 08/14/24 Handle Lathe Operator Relationship Specialty Start Date End Date Tereso Shaikh MD [address] [place] [address] PCP - General Internal Medicine 02/10/23 Maria Guadalupe Rivers, MD ALLERGY IMMUNOLOGY.ELECTRIC LOCOMOTIVE CRANE OPERATOR [address] [place] [address] Playground Aide Internal Medicine 08/14/24 Handle Lathe Operator Relationship Specialty Start Date End Date Tereso Shaikh MD [address] [place] [address] PCP - General Internal Medicine 02/10/23 Maria Guadalupe Rivers, MD ALLERGY IMMUNOLOGY.ELECTRIC LOCOMOTIVE CRANE OPERATOR [address] [place] [address] Playground Aide Internal Medicine 08/14/24 Handle Lathe Operator Relationship Specialty Start Date End Date Tereso Shaikh MD [address] [place] [address] PCP - General Internal Medicine 02/10/23 Maria Guadalupe Rivers, MD ALLERGY IMMUNOLOGY.ELECTRIC LOCOMOTIVE CRANE OPERATOR [address] [place] [address] Playground Aide Internal Medicine 08/14/24 Handle Lathe Operator Relationship Specialty Start Date End Date Tereso Shaikh MD [address] [place] [address] PCP - General Internal Medicine 02/10/23 Maria Guadalupe Rivers, MD ALLERGY IMMUNOLOGY.ELECTRIC LOCOMOTIVE CRANE OPERATOR [address] [place] [address] Playground Aide Internal Medicine 08/14/24 Handle Lathe Operator Relationship Specialty Start Date End Date Tereso Shaikh MD [address] [place] [address] PCP - General Internal Medicine 02/10/23 Maria Guadalupe Rivers, MD ALLERGY IMMUNOLOGY.ELECTRIC LOCOMOTIVE CRANE OPERATOR [address] [place] [address] Playground Aide Internal Medicine 08/14/24 Handle Lathe Operator Relationship Specialty Start Date End Date Tereso Shaikh MD [address] [place] [address] PCP - General Internal Medicine 02/10/23 Maria Guadalupe Rivers, MD ALLERGY IMMUNOLOGY.ELECTRIC LOCOMOTIVE CRANE OPERATOR [address] [place] [address] Playground Aide Internal Medicine 08/14/24 Handle Lathe Operator Relationship Specialty Start Date End Date Tereso Shaikh MD [address] [place] [address] PCP - General Internal Medicine 02/10/23 Maria Guadalupe Rivers, MD ALLERGY IMMUNOLOGY.ELECTRIC LOCOMOTIVE CRANE OPERATOR [address] [place] [address] Playground Aide Internal Medicine 08/14/24 Handle Lathe Operator Relationship Specialty Start Date End Date Tereso Shaikh MD [address] [place] [address] PCP - General Internal Medicine 02/10/23 Maria Guadalupe Rivers, MD ALLERGY IMMUNOLOGY.ELECTRIC LOCOMOTIVE CRANE OPERATOR [address] [place] [address] Playground Aide Internal Medicine 08/14/24 Handle Lathe Operator Relationship Specialty Start Date End Date Tereso Shaikh MD [address] [place] [address] PCP - General Internal Medicine 02/10/23 Maria Guadalupe Rivers, MD ALLERGY IMMUNOLOGY.ELECTRIC LOCOMOTIVE CRANE OPERATOR [address] [place] [address] Playground Aide Internal Medicine 08/14/24 Handle Lathe Operator Relationship Specialty Start Date End Date Tereso Shaikh MD [address] [place] [address] PCP - General Internal Medicine 02/10/23 Maria Guadalupe Rivers, MD ALLERGY IMMUNOLOGY.ELECTRIC LOCOMOTIVE CRANE OPERATOR [address] [place] [address] Playground Aide Internal Medicine 08/14/24 Handle Lathe Operator Relationship Specialty Start Date End Date Tereso Shaikh MD [address] [facility], [place] [address] PCP - General Internal Medicine 02/10/23 Maria Guadalupe Rivers, MD ALLERGY IMMUNOLOGY.ELECTRIC LOCOMOTIVE CRANE OPERATOR [address] [place] [address] Playground Aide Internal Medicine 08/14/24 Handle Lathe Operator Relationship Specialty Start Date End Date Tereso Shaikh MD [address] [place] [address] PCP - General Internal Medicine 02/10/23 Maria Guadalupe Rivers, MD ALLERGY IMMUNOLOGY.ELECTRIC LOCOMOTIVE CRANE OPERATOR [address] [place] [address] Playground Aide Internal Medicine 08/14/24 Handle Lathe Operator Relationship Specialty Start Date End Date Tereso Shaikh MD [address] [place] [address] PCP - General Internal Medicine 02/10/23 Maria Guadalupe Rivers, MD ALLERGY IMMUNOLOGY.ELECTRIC LOCOMOTIVE CRANE OPERATOR [address] [place] [address] Playground Aide Internal Medicine 08/14/24 Handle Lathe Operator Relationship Specialty Start Date End Date Tereso Shaikh MD [address] [facility], [place] [address] PCP - General Internal Medicine 02/10/23 Maria Guadalupe Rivers, MD ALLERGY IMMUNOLOGY.ELECTRIC LOCOMOTIVE CRANE OPERATOR [address] [place] [address] Playground Aide Internal Medicine 08/14/24 Handle Lathe Operator Relationship Specialty Start Date End Date Tereso Shaikh MD [address] [place], [place] [address] PCP - General Internal Medicine 02/10/23 Maria Guadalupe Rivers, MD ALLERGY IMMUNOLOGY.ELECTRIC LOCOMOTIVE CRANE OPERATOR [address] [place] [address] Playground Aide Internal Medicine 08/14/24 Handle Lathe Operator Relationship Specialty Start Date End Date Tereso Shaikh MD [address] [place], [place] [address] PCP - General Internal Medicine 02/10/23 Maria Guadalupe Rivers, MD ALLERGY IMMUNOLOGY.ELECTRIC LOCOMOTIVE CRANE OPERATOR [address] [place] [address] Playground Aide Internal Medicine 08/14/24 Handle Lathe Operator Relationship Specialty Start Date End Date Tereso Shaikh MD [address] [place], [place] [address] PCP - General Internal Medicine 02/10/23 Maria Guadalupe Rivers, MD ALLERGY IMMUNOLOGY.ELECTRIC LOCOMOTIVE CRANE OPERATOR [address] [place] [address] Playground Aide Internal Medicine 08/14/24 Handle Lathe Operator Relationship Specialty Start Date End Date Tereso Shaikh MD [address] [place], [place] 3889[address] PCP - General Internal Medicine 02/10/23 Maria Guadalupe Rivers, MD ALLERGY IMMUNOLOGY.ELECTRIC LOCOMOTIVE CRANE OPERATOR [address] [place] [address] Playground Aide Internal Medicine 08/14/24 Handle Lathe Operator Relationship Specialty Start Date End Date Tereso Shaikh MD [address] [facility] [place] [address] PCP - General Internal Medicine 02/10/23 Maria Guadalupe Rivers, MD ALLERGY IMMUNOLOGY.ELECTRIC LOCOMOTIVE CRANE OPERATOR [address] [facility] [place] [place] [address] Playground Aide Internal Medicine 08/14/24 Handle Lathe Operator Relationship Specialty Start Date End Date Tereso Shaikh MD [address] [facility] [place] [address] PCP - General Internal Medicine 02/10/23 Maria Guadalupe Rivers, MD ALLERGY IMMUNOLOGY.ELECTRIC LOCOMOTIVE CRANE OPERATOR [address] [place] [address] Playground Aide Internal Medicine 08/14/24 Handle Lathe Operator Relationship Specialty Start Date End Date Tereso Shaikh MD [address] [facility] [place] [place] [address] PCP - General Internal Medicine 02/10/23 Maria Guadalupe Rivers, MD ALLERGY IMMUNOLOGY.ELECTRIC LOCOMOTIVE CRANE OPERATOR [address] [place] [address] Playground Aide Internal Medicine 08/14/24 Handle Lathe Operator Relationship Specialty Start Date End Date Tereso Shaikh MD [address] [facility] [place] [address] PCP - General Internal Medicine 02/10/23 Maria Guadalupe Rivers, MD ALLERGY IMMUNOLOGY.ELECTRIC LOCOMOTIVE CRANE OPERATOR [address] [place] [address] Playground Aide Internal Medicine 08/14/24 Handle Lathe Operator Relationship Specialty Start Date End Date Tereso Shaikh MD [address] [place], [place] [address] PCP - General Internal Medicine 02/10/23 Maria Guadalupe Rivers, MD ALLERGY IMMUNOLOGY.ELECTRIC LOCOMOTIVE CRANE OPERATOR [address] [place] [address] [facility] Internal Medicine 08/14/24 Handle Lathe Operator Relationship Specialty Start Date End Date Tereso Shaikh MD [address] [place], [place] 1798[address] PCP - General Internal Medicine 02/10/23 Maria Guadalupe Rivers, MD ALLERGY IMMUNOLOGY.ELECTRIC LOCOMOTIVE CRANE OPERATOR [address] [place] [address] [facility] Internal Medicine 08/14/24 Handle Lathe Operator Relationship Specialty Start Date End Date Tereso Shaikh MD [address] [place] [address] PCP - General Internal Medicine 02/10/23 Maria Guadalupe Rivers, MD ALLERGY IMMUNOLOGY.ELECTRIC LOCOMOTIVE CRANE OPERATOR [address] [place] [address] [facility] Internal Medicine 08/14/24 Handle Lathe Operator Relationship Specialty Start Date End Date Tereso Shaikh MD [address] [place], [place] [address]57[address] PCP - General Internal Medicine 02/10/23 Maria Guadalupe Rivers, MD ALLERGY IMMUNOLOGY.ELECTRIC LOCOMOTIVE CRANE OPERATOR [address] [place] [address] Playground Aide Internal Medicine 08/14/24 Handle Lathe Operator Relationship Specialty Start Date End Date Tereso Shaikh MD [address] [place], [place] 9175[address] PCP - General Internal Medicine 02/10/23 Maria Guadalupe Rivers, MD ALLERGY IMMUNOLOGY.ELECTRIC LOCOMOTIVE CRANE OPERATOR [address] [place] [address] Playground Aide Internal Medicine 08/14/24 Handle Lathe Operator Relationship Specialty Start Date End Date Tereso Shaikh MD [address] [place] [address] PCP - General Internal Medicine 02/10/23 Maria Guadalupe Rivers, MD ALLERGY IMMUNOLOGY.ELECTRIC LOCOMOTIVE CRANE OPERATOR [address] [place] [address] Playground Aide Internal Medicine 08/14/24 Handle Lathe Operator Relationship Specialty Start Date End Date Tereso Shaikh MD [address] [place] [address] PCP - General Internal Medicine 02/10/23 Maria Guadalupe Rivers, MD ALLERGY IMMUNOLOGY.ELECTRIC LOCOMOTIVE CRANE OPERATOR [address] [place] [address] [facility] Internal Medicine 08/14/24 Handle Lathe Operator Relationship Specialty Start Date End Date Tereso Shaikh MD [address] [place], [place] [address] PCP - General Internal Medicine 02/10/23 Maria Guadalupe Rivers, MD ALLERGY IMMUNOLOGY.ELECTRIC LOCOMOTIVE CRANE OPERATOR [address] [place] [address] Playground Aide Internal Medicine 08/14/24 Handle Lathe Operator Relationship Specialty Start Date End Date Tereso Shaikh MD [address] [place] [address] PCP - General Internal Medicine 02/10/23 Maria Guadalupe Rivers, MD ALLERGY IMMUNOLOGY.ELECTRIC LOCOMOTIVE CRANE OPERATOR [address] [place] [address] Playground Aide Internal Medicine 08/14/24 Handle Lathe Operator Relationship Specialty Start Date End Date Tereso Shaikh MD [address] [place] [address] PCP - General Internal Medicine 02/10/23 Maria Guadalupe Rivers, MD ALLERGY IMMUNOLOGY.ELECTRIC LOCOMOTIVE CRANE OPERATOR [address] [place] [address] Playground Aide Internal Medicine 08/14/24 Handle Lathe Operator Relationship Specialty Start Date End Date Tereso Shaikh MD [address] [place] [address] PCP - General Internal Medicine 02/10/23 Maria Guadalupe Rivers, MD ALLERGY IMMUNOLOGY.ELECTRIC LOCOMOTIVE CRANE OPERATOR [address] [place] [address] Playground Aide Internal Medicine 08/14/24 Handle Lathe Operator Relationship Specialty Start Date End Date Tereso Shaikh MD [address] [place] [address] PCP - General Internal Medicine 02/10/23 Maria Guadalupe Rivers, MD ALLERGY IMMUNOLOGY.ELECTRIC LOCOMOTIVE CRANE OPERATOR [address] [place] [address] [facility] [facility] 08/14/24 Handle Lathe Operator Relationship Specialty Start Date End Date Tereso Shaikh MD [address] [place], [place] [id number] PCP - General Internal Medicine 02/10/23 Maria Guadalupe Rivers, LENY.ELECTRIC LOCOMOTIVE CRANE OPERATOR [address] [place], [place] [id number] [facility] Internal [facility] 08/14/24 FOR RECORDS PERTAINING TO PATIENTS WHO ARE OR HAVE BEEN ENROLLED IN A CHEMICAL DEPENDENCY/SUBSTANCEABUSE PROGRAM, SOME INFORMATION MAY BE OMITTED. This clinical summary was aggregated from multiple sources. Caution should be exercised in using it in the provision of clinical care. This summary normalizes information from multiple sources, and as a consequence, information in this document may materially change the coding, format and clinical context of patient data. In addition, data may be omitted in some cases. CLINICAL DECISIONS SHOULD BE BASED ON THE PRIMARY CLINICAL RECORDS. [facility] [employer] [facility]. provides no warranty or guarantee of the accuracy or completeness of information in this document.
[2025-03-16 22:51] VITALS: BMI 34.0
[2025-03-16 23:55] LABS: Prothrombin Time (Protime)PT. 13.6 SECONDS (11.7-14.9)
[2025-03-16 23:56] LABS: Partial Thromboplast Time 27.6 Seconds (24.1-36.2)
[2025-03-17] VITALS (44 sets, daily range): BP systolic 90–139; BP diastolic 51–72; PULSE 54–100; RESP 15–18; TEMP 36.2–36.8; O2SAT 83–100
[2025-03-17] LABS: Hematocrit 37.0 % (37-47); Hemoglobin 12.3 g/dL (12.0-15.0); Immature Granulocytes Count 0.120 X10^3/uL (0.0-0.0); Mean Corp Hgb Conc 33.2 g/dL (32-36); Mean Corpuscular Volume 90.0 fL (81-99); Mean Platelet Vol. 10.9 fl (6.2-12.0); NRBC Flagged by Analyzer 0 % (0-5); Platelet Count 227 K/mm3 (150-450); RBC Distribution Width CV 13.4 % (11.6-14.6); RBC Distribution Width SD 43.6 fl (35.1-43.9); Red Blood Count 4.11 M/mm3 (4.2-5.4); White Blood Count 11.4 K/mm3 (4.4-11.0)
[2025-03-17 00:06] LABS: Fibrinogen 479 mg/dl (203-444)
[2025-03-17 00:24] LABS: BUN 8 mg/dL (4-19); Glucose 104 mg/dL (70-99)
[2025-03-17 00:25] LABS: AST(SGOT) 31 U/L (<=31); Alanine Aminotransfer ALT/SGPT 11 U/L (<=34); Albumin, Serum 3.4 g/dL (3.5-5.0); Alkaline Phosphatase 206 U/L (35-104); Anion Gap 13 (5-15); BUN/Creat Ratio 12.0 RATIO (10-20); Calcium,Total 9.0 mg/dL (7.6-11.0); Carbon Dioxide 18.6 mmol/L (21.0-32.0); Chloride 104 mmol/L (98-108); Estimated Creatinine Clearance 143.23 ml/min (50-250); Globulin 3.7 g/dL (2.2-4.2); Potassium 4.2 mmol/L (3.3-5.1)
[2025-03-17 01:04] LABS: Barbiturate Urine NEGATIVE (< 200 ng/mL); Benzodiazepine Urine NEGATIVE (< 200 ng/mL); PCP Urine NEGATIVE (< 25 ng/mL); THC Urine PRESUMPTIVE POSITIVE (< 50 ng/mL)
[2025-03-17 01:08] LABS: Syphilis Antibodies Nonreactive (Nonreactive)
--- OUTSIDE RECORDS SUMMARY | 2025-03-17 07:39 | XMS RPT_ITS | CCD ---
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 11-03-2024 JOSE M Telephone (OBGYWM) -------- CALIN GRAF ([id number]) 1995 F Date Time Provider Department 11/03/24 REMA ALFRED During your visit today, we recorded the following information about you: Lachelle Bean, ZEINA 11/03/2024 11:49 AM Signed 19w4d Patient viewed her +Antibody Screen on [employer]. Patient feeling anxious about the report. Would like provider consumer educator to review in SERGEI absence. Thank you. ZEINA Vallejo Rebecca L, MD 11/07/2024 2:24 PM Signed See my note about follow up in result notes. MFM consult and dopplers q 2 weeks. Orders were entered. 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 (ie [...] Status:Closed by HUSSEIN FIELDS on 11/07/[address] [facility] ABO AND RH ONLYon 10-30-[address] [facility] Comment on above: Order Comment: Speci men Type: BLOOD SPECIMENOrdering Facility: [facility] Address: [address] [place] [address] Performed By: #### A SCR, %JETHRO, DAGT, ABORH, ABT, BBABINT ####CC MAIN BLOOD BANKCLIA [id number] [place] [address] [place] Rh Nom (Bld) Positive Normal [facility] Comment on above: Order Comment: Speci men Type: BLOOD SPECIMENOrdering Facility: [facility] Address: [address] [place] [address] Performed By: #### A SCR, %JETHRO, DAGT, ABORH, ABT, BBABINT ####CC MAIN BLOOD BANKCLIA [id number] [place] [address] [place] ABO TITER/ISOHEMAGGon 2024 ABO ANTIBODY TITER Titers to 8 Normal [facility] Comment on above: Order Comment: Speci men Type: BLOOD SPECIMENOrdering Facility: [facility] Address: [address] [place] [address] Result Comment: Anti body titered = E Corrected result: Previously reported as Titers to 16 on 11/01/2024 at 4:35 PM EST. Performed By: #### A SCR, %JETHRO, DAGT, ABORH, ABT, BBABINT ####CC MAIN BLOOD BANKCLIA [id number] [address] OF ADAL ANTIBODY ID PATIENTon 2024 ANTIBODY IDENTIFIED Detected Normal [facility] Comment on above: Order Comment: Speci men Type: BLOOD SPECIMENOrdering Facility: [facility] Address: [address] [place] [address] Performed By: #### A SCR, %JETHRO, DAGT, ABORH, ABT, BBABINT ####CC MAIN BLOOD BANKCLIA [id number] [address] ANTIBODY SCREENon 10-30-2024 TYPE AND SCREEN EXPIRATION 11/02/2024 23:[address] [facility] Comment on above: Order Comment: Speci men Type: BLOOD SPECIMENOrdering Facility: [facility] Address: [address] [place] [address] Performed By: #### A SCR, %JETHRO, DAGT, ABORH, ABT, BBABINT ####CC MAIN BLOOD BANKCLIA [id number] [address] BLOOD BANK PLACEHOLDER, ANTI BODY INTERPRETATIONon 10-30-2024 BLOOD BANK REPORT, ANTIBODY INTERPRETATION See Pathology Report Normal [facility] Comment on above: Order Comment: Speci men Type: BLOOD SPECIMENOrdering Facility: [facility] Address: [address] [place] [address] Performed By: #### A SCR, %JETHRO, DAGT, ABORH, ABT, BBABINT ####CC MAIN BLOOD BANKCLIA [id number] [address] BLOOD BANK REPORT, ANTIBODY INTERPRETATIONon 10-30-[address] [facility] Comment on above: Order Comment: Speci men Type: BLOOD SPECIMENOrdering Facility: [facility] Address: [address] [place] [address] Result Comment: Anti -E is currently and [...] EST Performed By: #### B BRABI ####[facility] BLOOD BANKIA [id number] [place] [address] [place] LIU DIRECTon 10-30-2024 DAGT, POLYSPECIFIC AHG Negative Normal [facility] Comment on above: Order Comment: Speci men Type: BLOOD SPECIMENOrdering Facility: [facility] Address: [address] [place] [address] Performed By: #### A SCR, %JETHRO, DAGT, ABORH, ABT, BBABINT ####[facility] BLOOD BANKIA [id number] [place] [address] [place] CNOVon 10-03-2024 CNOV Office Visit (UCWSTR ) -------- CALIN GRAF ([id number]) 1995 F Date Time Provider Department 10/03/24 11:15 AM FRANCISCO CHAVEZ [facility] During your visit today, we recorded the following information about you: Temperature Pulse Respiration Blood pressure 97.9 degrees 98/minute 18/minute 110/72 Weight 78.6 kg Francisco Chavez PA-C 10/03/2024 11:32 AM Signed This note was created using [employer]. Subjective Calin Graf is a 29 year [...] was very clearly instructed to contact her SUPERVISOR HARVESTING or report to an emergency department if [...] of cystic (more content not included)... Normal [facility] Vidya 09-14-2024 CNPN Telephone (OBGYWM) -------- CALIN GRAF ([id number]) 1995 F Date Time Provider Department 09/14/24 [...] [95] Prescriptions as of 09/14/2024 - vit 21-qokb-himxx-dha (SELECT-OB+DHA) 29 mg iron-1 mg -250 mg [...] Status:Closed by AMARA MEDINA on 09/14/[address] [facility] ABO TITER/ISOHEMAGGon 2024 ABO ANTIBODY TITER Titers to 4 Normal [facility] Comment on above: Order Comment: Speci men Type: BLOOD SPECIMENOrdering Facility: [facility] Address: [address] [place] [address] Result Comment: anti -E TITER 1:4 Performed By: #### T SPN, %JETHRO, BBABINT, ABT ####CC MAIN BLOOD BANKCLIA [id number] [address] ANTIBODY ID PATIENTon 2024 ANTIBODY IDENTIFIED Detected Normal [facility] Comment on above: Order Comment: Temitope henry Type: BLOOD SPECIMENOrdering Facility: [facility] Address: [address] [place] [address] Performed By: #### T SPN, %JETHRO, BBABINT, ABT ####CC MAIN BLOOD BANKCLIA [id number] [address] BLOOD BANK PLACEHOLDER, ANTI BODY INTERPRETATIONon 09-13-2024 BLOOD BANK REPORT, ANTIBODY INTERPRETATION See Pathology Report Normal [facility] Comment on above: Order Comment: Temitope henry Type: BLOOD SPECIMENOrdering Facility: [facility] Address: [address] [place] [address] Performed By: #### T SPN, %JETHRO, BBABINT, ABT ####CC MAIN BLOOD BANKCLIA [id number] [address] BLOOD BANK REPORT, ANTIBODY INTERPRETATIONon 09-13-[address] [facility] Comment on above: Order Comment: Temitope henry Type: BLOOD SPECIMENOrdering Facility: [facility] Address: [address] [place] [address] Result Comment: Anti -E is identified. This [...] compatible blood. Performed By: #### B ANA ####[facility] LABCLIA [id number] [place] [address] [place] CBC W Auto Differential pane l (Bld)on 09-13-2024 Basophils (Bld) [#/Vol] 0.03 10*3/uL Normal <0.11 [facility] Comment on above: Order Comment: Speci men Type: BLOOD SPECIMENOrdering Facility: [facility] Address: [address] [place] [address] Performed By: #### 5 7021-8 ####[facility] [id number] [place] [address] [place] Basophils/100 WBC (Bld) 0.3 % Normal [facility] Comment on above: Order Comment: Speci men Type: BLOOD SPECIMENOrdering Facility: [facility] Address: [address] [place] [address] Performed By: #### 5 7021-8 ####[facility] [id number] [place] [address] [place] Differential cell count method Nom (Bld) Auto Normal [facility] Comment on above: Order Comment: Speci men Type: BLOOD SPECIMENOrdering Facility: [facility] Address: [address] [place] [address] Performed By: #### 5 7021-8 ####[facility] MILLWNCLIA [id number] [place] [address] [place] Eosinophils (Bld) [#/Vol] 0.10 10*3/uL Normal <0.46 [facility] Comment on above: Order Comment: Speci men Type: BLOOD SPECIMENOrdering Facility: [facility] Address: [address] [place] [address] Performed By: #### 5 7021-8 ####[facility] SPRINGSWNVLIA [id number] [place] [address] [place] Eosinophils/100 WBC (Bld) 1.0 % Normal [facility] Comment on above: Order Comment: Speci men Type: BLOOD SPECIMENOrdering Facility: [facility] Address: [address] [place] [address] Performed By: #### 5 7021-8 ####[facility]ITALLIA [id number] [place] [address] [place] Erythrocyte distribution width (RBC) [Ratio] 13.4 % Normal 11.5-15.0 [facility] Comment on above: Order Comment: Speci men Type: BLOOD SPECIMENOrdering Facility: [facility] Address: [address] [place] [address] Performed By: #### 5 7021-8 ####[facility]ALL[facility] [id number] [place] [address] [place] Hematocrit (Bld) [Volume fraction] 39.0 % Normal 36.0-46.0 [facility] Comment on above: Order Comment: Speci men Type: BLOOD SPECIMENOrdering Facility: [facility] Address: [address] [place] [address] Performed By: #### 5 7021-8 ####[facility]ITALNCLIA [id number] [place] [address] [place] Hemoglobin (Bld) [Mass/Vol] 13.1 g/dL Normal 11.5-15.5 [facility] Comment on above: Order Comment: Speci men Type: BLOOD SPECIMENOrdering Facility: [facility] Address: [address] [place] [address] Performed By: #### 5 7021-8 ####[facility] [id number] [place] [address] [place] Immature granulocytes (Bld) [#/Vol] 0.03 10*3/uL Normal <0.10 [facility] Comment on above: Order Comment: Speci men Type: BLOOD SPECIMENOrdering Facility: [facility] Address: [address] [place] [address] Performed By: #### 5 7021-8 ####[facility] [id number] [place] [address] [place] Immature granulocytes/100 WBC (Bld) 0.3 % Normal [facility] Comment on above: Order Comment: Speci men Type: BLOOD SPECIMENOrdering Facility: [facility] Address: [address] [place] [address] Performed By: #### 5 7021-8 ####[facility] [id number] [place] [address] [place] Lymphocytes (Bld) [#/Vol] 2.47 10*3/uL Normal 1.00-4.00 [facility] Comment on above: Order Comment: Speci men Type: BLOOD SPECIMENOrdering Facility: [facility] Address: [address] [place] [address] Performed By: #### 5 7021-8 ####[facility]ITALNCT[facility] [id number] [place] [address] [place] Lymphocytes/100 WBC (Bld) 24.0 % Normal [facility] Comment on above: Order Comment: Speci men Type: BLOOD SPECIMENOrdering Facility: [facility] Address: [address] [place] [address] Performed By: #### 5 7021-8 ####[facility] TANNAWATROUSANTONIETA [id number] MCH (RBC) [Entitic mass] 29.2 pg Normal 26.0-34.0 [facility] Comment on above: Order Comment: Speci men Type: BLOOD SPECIMENOrdering Facility: [facility] Address: [address] [place] [address] Performed By: #### 5 7021-8 ####[facility] HOSPITALNCLe [id number] [place] [address] [place] MCHC (RBC) [Mass/Vol] 33.6 g/dL Normal 30.5-36.0 [facility] Comment on above: Order Comment: Speci men Type: BLOOD SPECIMENOrdering Facility: [facility] Address: [address] [place] [address] Performed By: #### 5 7021-8 ####[facility] HOSPITALNCLe [id number] [place] [address] [place] MCV (RBC) [Entitic vol] 87.1 fL Normal 80.0-100.0 [facility] Comment on above: Order Comment: Speci men Type: BLOOD SPECIMENOrdering Facility: [facility] Address: [address] [place] [address] Performed By: #### 5 7021-8 ####[facility] HOSPITALNCLI [id number] [place] [address] [place] Monocytes (Bld) [#/Vol] 0.57 10*3/uL Normal <0.87 [facility] Comment on above: Order Comment: Speci men Type: BLOOD SPECIMENOrdering Facility: [facility] Address: [address] [place] [address] Performed By: #### 5 7021-8 ####[facility] SPRINGSWNVLIA [id number] [place] [address] [place] Monocytes/100 WBC (Bld) 5.5 % Normal [facility] Comment on above: Order Comment: Speci men Type: BLOOD SPECIMENOrdering Facility: [facility] Address: [address] [place] [address] Performed By: #### 5 7021-8 ####[facility]ALLIA [id number] [place] [address] [place] Neutrophils (Bld) [#/Vol] 7.10 10*3/uL Normal 1.45-7.50 [facility] Comment on above: Order Comment: Speci men Type: BLOOD SPECIMENOrdering Facility: [facility] Address: [address] [place] [address] Performed By: #### 5 7021-8 ####[facility] [id number] [place] [address] [place] Neutrophils/100 WBC (Bld) 68.9 % Normal [facility] Comment on above: Order Comment: Speci men Type: BLOOD SPECIMENOrdering Facility: [facility] Address: [address] [place] [address] Performed By: #### 5 7021-8 ####[facility]ALL[facility] [id number] [place] [address] [place] Nucleated RBC (Bld) [#/Vol] 10*3/uL Normal <0.01 [facility] Comment on above: Order Comment: Speci men Type: BLOOD SPECIMENOrdering Facility: [facility] Address: [address] [place] [address] Performed By: #### 5 7021-8 ####[facility] [id number] [place] [address] [place] Nucleated RBC/100 WBC (Bld) [Ratio] 0.0 /[address] [facility] Comment on above: Order Comment: Speci men Type: BLOOD SPECIMENOrdering Facility: [facility] Address: [address] [place] [address] Performed By: #### 5 7021-8 ####[facility]ITALNCT[facility] [id number] [place] [address] [place] Platelet mean volume (Bld) [Entitic vol] 10.5 fL Normal 9.0-12.7 [facility] Comment on above: Order Comment: Speci men Type: BLOOD SPECIMENOrdering Facility: [facility] Address: [address] [place] [address] Performed By: #### 5 7021-8 ####[facility] [id number] [place] [address] [place] Platelets (Bld) [#/Vol] 258 10*3/uL Normal 150-400 [facility] Comment on above: Order Comment: Speci men Type: BLOOD SPECIMENOrdering Facility: [facility] Address: [address] [place] [address] Performed By: #### 5 7021-8 ####[facility] [id number] [place] [address] [place] RBC (Bld) [#/Vol] 4.48 10*6/uL Normal 3.90-5.20 [facility] Comment on above: Order Comment: Speci men Type: BLOOD SPECIMENOrdering Facility: [facility] Address: [address] [place] [address] Performed By: #### 5 7021-8 ####[facility]ITALN[facility] [id number] [place] [address] [place] WBC (Bld) [#/Vol] 10.30 10*3/uL Normal 3.70-11.00 [facility] Comment on above: Order Comment: Speci men Type: BLOOD SPECIMENOrdering Facility: [facility] Address: [address] [place] [address] Performed By: #### 5 7021-8 ####[facility] DIMASLIA [id number] [place] [address] [place] Comprehensive metabolic 2000 panelon 09-13-2024 Albumin [Mass/Vol] 4.3 g/dL Normal 3.9-4.9 [facility] Comment on above: Order Comment: Speci men Type: BLOOD SPECIMENOrdering Facility: [facility] Address: [address] [place] [address] Performed By: #### 2 4323-8 ####[facility]OSPITALNCLIA [id number] [place] [address] [place] ALP [Catalytic activity/Vol] 57 U/L Normal 34-123 [facility] Comment on above: Order Comment: Speci men Type: BLOOD SPECIMENOrdering Facility: [facility] Address: [address] [place] [address] Performed By: #### 2 4323-8 ####[facility] HOSPITALAISHALIA [id number] [place] [address] [place] ALT [Catalytic activity/Vol] 10 U/L Normal 7-38 [facility] Comment on above: Order Comment: Speci men Type: BLOOD SPECIMENOrdering Facility: [facility] Address: [address] [place] [address] Performed By: #### 2 4323-8 ####[facility]ITALNCLIA [id number] [place] [address] [place] Anion gap [Moles/Vol] 12 mmol/L Normal 8-15 [facility] Comment on above: Order Comment: Speci men Type: BLOOD SPECIMENOrdering Facility: [facility] Address: [address] [place] [address] Performed By: #### 2 4323-8 ####[facility] MILLTOWNCLIA [id number] [place] [address] [place] AST [Catalytic activity/Vol] 17 U/L Normal 13-35 [facility] Comment on above: Order Comment: Speci men Type: BLOOD SPECIMENOrdering Facility: [facility] Address: [address] [place] [address] Performed By: #### 2 4323-8 ####[facility] MILLTOWNCLIA [id number] [place] [address] [place] Bilirubin [Mass/Vol] 0.4 mg/dL Normal 0.2-1.3 [facility] Comment on above: Order Comment: Speci men Type: BLOOD SPECIMENOrdering Facility: [facility] Address: [address] [place] [address] Performed By: #### 2 4323-8 ####[facility] SPRINGSWNCLIA [id number] [place] [address] [place] Calcium [Mass/Vol] 9.9 mg/dL Normal 8.5-10.2 [facility] Comment on above: Order Comment: Speci men Type: BLOOD SPECIMENOrdering Facility: [facility] Address: [address] [place] [address] Performed By: #### 2 4323-8 ####[facility] MILLWNCLIA [id number] [place] [address] [place] Chloride [Moles/Vol] 102 mmol/L Normal 98-107 [facility] Comment on above: Order Comment: Speci men Type: BLOOD SPECIMENOrdering Facility: [facility] Address: [address] [place], [place] [address] Performed By: #### 2 4323-8 ####[facility] [id number] [place] [address] [place] CO2 [Moles/Vol] 21 mmol/L Low 22-30 [facility] Comment on above: Order Comment: Speci men Type: BLOOD SPECIMENOrdering Facility: [facility] Address: [address] [place] [address] Performed By: #### 2 4323-8 ####[facility] [id number] [place] [address] [place] Creatinine [Mass/Vol] 0.54 mg/dL Low 0.58-0.96 [facility] Comment on above: Order Comment: Speci men Type: BLOOD SPECIMENOrdering Facility: [facility] Address: [address] [place] [address] Performed By: #### 2 4323-8 ####[facility] [id number] [address] STATES OF ADAL Creatinine and Glomerular filtration rate.predicted panel (S/P/Bld) 128 mL/min/1.73m??? Normal >=60 [facility] Comment on above: Order Comment: Speci men Type: BLOOD SPECIMENOrdering Facility: [facility] Address: [address] [place] [address] Result Comment: Nisha mated Glomerular Filtration Rate [...] actual GFR. Performed By: #### 2 4323-8 ####[facility] [id number] [place] [address] [place] Glucose [Mass/Vol] 89 mg/dL Normal 74-99 [facility] Comment on above: Order Comment: Speci men Type: BLOOD SPECIMENOrdering Facility: [facility] Address: [address] [place] [address] Result Comment: The [place] Diabetes Association (ADA) provides guidance for cutoff [...] Standards of Medical Care in Diabetes 2016, [place] Diabetes Association. Diabetes Care. 2016.39(Suppl 1). Performed By: #### 2 4323-8 ####[facility]PITALANTONIETA [id number] [place] [address] [place] Potassium [Moles/Vol] 3.9 mmol/L Normal 3.7-5.1 [facility] Comment on above: Order Comment: Speci men Type: BLOOD SPECIMENOrdering Facility: [facility] Address: [address] [place] [address] Performed By: #### 2 4323-8 ####[facility] [id number] [place] [address] [place] Protein [Mass/Vol] 7.5 g/dL Normal 6.3-8.0 [facility] Comment on above: Order Comment: Speci men Type: BLOOD SPECIMENOrdering Facility: [facility] Address: [address] [id number] Performed By: #### 2 4323-8 ####[facility] [id number] [place] [address] [place] Sodium [Moles/Vol] 135 mmol/L Low 136-144 [facility] Comment on above: Order Comment: Speci men Type: BLOOD SPECIMENOrdering Facility: [facility] Address: [address] [place] [address] Performed By: #### 2 4323-8 ####[facility] LAILA MILLTOWNCLIA [id number] [place] [address] [place] Urea nitrogen [Mass/Vol] 8 mg/dL Normal 7- [facility] Comment on above: Order Comment: Speci men Type: BLOOD SPECIMENOrdering Facility: [facility] Address: [facility] [address] [place] [address] Performed By: #### 2 4323-8 ####[facility] LAILABRENDA CISSETOWNCLIA [id number] [place] [address] [place] nuchal translucency me asured by on 09-13-2024 Indication First trimester anatomic survey Impression REMOTE READ The patient is referred for a first trimester anatomy scan including nuchal translucency measurement as clinically indicated. - Single, live, intrauterine . - Henriette rump length measurement is consistent with the [...] view: visualized 4-chamber view with color: visualized 3-cfaekt-mzgvttl view: normal Abdominal cord insertion: normal Stomach: [...] Read By: Stephani Cano M.D. MATERNAL MEDICINE [facility] Radiology Study observation (narrative) [facility] HBV surface Ag Ser Qlon HBV surface Ag Ql (S) Negative Normal Negative [facility] Comment on above: Order Comment: Speci men Type: BLOOD SPECIMEN [facility] Address: [address] [place] [address] Performed By: #### G LTGST #### [facility] CLIA [id number] [address] [place] [address] [place] HCV Ab Ser Qlon 09-13-2024 HCV Ab Ql (S) Positive Abnormal Negative [facility] Comment on above: Order Comment: Speci men Type: BLOOD SPECIMENOrdering Facility: [facility] Address: [address] [place] [address] Performed By: #### 1 1011-4, 38024-1 ####[facility] LABCLIA [id number] [place] [address] [place] HCV RNA YELENA+probe Qnon 09-13 HCV RNA YELENA+probe Ql Not detected Normal Not detected [facility] Comment on above: Order Comment: Speci men Type: BLOOD SPECIMENOrdering Facility: [facility] Address: [address] [place] [address] Performed By: #### 1 1011-4, 44944-0 ####[facility] LABCLIA [id number] [facility] [id number] [place] [address] [place] HIV 1+2 Ab IA Qlon 5 HIV 1 and 2 Ab IA.rapid Nom (S/P/Bld) Normal [facility] Comment on above: Order Comment: Speci men Type: BLOOD SPECIMEN [facility] Address: [address] [place] [address] Result Comment: Test not indicated. Performed By: #### G LTGST #### [facility] HE[facility] SERVICESIA [id number] [address] [place] [address] OF [facility] HIV 1+2 Ab+HIV1 p24 Ag IA Ql Non-Reactive Normal Nonreactive [facility] Comment on above: Order Comment: Speci men Type: BLOOD SPECIMEN [facility] Address: [address] [place] [address] Performed By: #### G LTGST #### [facility] SERVICESIA [id number] [address] [place] [address] [place] HIV immunoassay testing algorithm interpretation (S/P/Bld) [Interp] Normal [facility] Comment on above: Order Comment: Speci men Type: BLOOD SPECIMEN [facility] Address: [address] [place] [address] Result Comment: No e vidence of HIV-1 or HIV-2 infection. Should recent infection be suspected, repeat testing may be considered 2-3 weeks after this draw. [place] Rev. Code 3701.243(E): This information has been [...] diagnoses. Performed By: #### G LTGST #### [facility]IA [id number] [address] [place] [address] [place] HbA1c (Bld)on 09-13-2024 Average glucose Estimated from glycated hemoglobin (Bld) [Mass/Vol] 103 mg/dL Normal [facility] Comment on above: Order Comment: Speci men Type: BLOOD SPECIMENOrdering Facility: [facility] Address: [address] [place] [address] Result Comment: eAG: (Estimated average glucose) is a calculated value from HgbA1c and is architectural representative of the average blood glucose level in the last 2-3 month period. Performed By: #### 5 5454-3 ####[facility] LABCLIA [id number] [address] STATES OF [facility] HbA1c (Bld) [Mass fraction] 5.2 % Normal 4.3-5.6 [facility] Comment on above: Order Comment: Speci men Type: BLOOD SPECIMENOrdering Facility: [facility] Address: [address] [place] [address] Result Comment: Amer ican Diabetes Association guidelines indicate that patients with HgbA1c in the range 5.7-6.4% are at increased risk for development of diabetes, and intervention by lifestyle modification may be beneficial. HgbA1c greater or equal to 6.5% is considered diagnostic of diabetes. Performed By: #### 5 5454-3 ####[facility] LABIA [id number] [place] [address] [place] [id number] PLUSon 09-13-2024 Cell-free DNA./Cell-free DNA.total Dosage of chromosome-specific cfDNA (cfDNA) [Molar fraction] 13% Normal [facility] Comment on above: Order Comment: Speci men Type: BLOOD SPECIMEN [facility] Address: [address] [place] [address] Performed By: #### G LTGST #### [facility] CLIA [id number] [address] [place] [address] Chr 13+18+21+X+Y aneuploidy Dosage of chromosome-specific cfDNA Ql (cfDNA) Negative Normal [facility] Comment on above: Order Comment: Speci men Type: BLOOD SPECIMEN [facility] Address: [address] [place] [address] Performed By: #### G LTGST #### [facility] CLIA [id number] [address] [place] [address] Chr 21 trisomy Dosage of chromosome-specific cfDNA Ql (cfDNA) Negative Normal [facility] Comment on above: Order Comment: Speci men Type: BLOOD SPECIMEN [facility] Address: [address] [place] [address] Performed By: #### G LTGST #### [facility] CLIA [id number] [address] [place] [address] ADAL Chr X and Y aneuploidy risk Sequencing Ql (cfDNA) [Interp] Not detected Normal [facility] Comment on above: Order Comment: Speci men Type: BLOOD SPECIMEN [facility] Address: [address] [place] [address] Result Comment: Not Detected Not Detected Performed By: #### G LTGST #### [facility] CLIA [id number] [address] [place] [address] OF ADAL Citation Frantz (Reference lab test) Comment Normal [facility] Comment on above: Order Comment: Speci men Type: BLOOD SPECIMEN [facility] Address: [address] [place] [address] Result Comment: 1. Leandro VEGAS, et al. Patricia Med. 2012;14(3):296-305. 2. Rahul LANDON et al. Prenat Diag. 2013;33(6):591-597. 3. Ebenezer C, et al. Clin Chem. 2015 Apr;61(4):608-616. 4. Markus VEGAS et al. Patricia Med. 2011;13(11):913-920. 5. ACOG/SMFM Practice Bulletin No. 226, Jun 2020. Performed By: #### G LTGST #### [facility] CLIA [id number] [address] [place] [address] Gestational age Estimated from conception date [place] Normal [facility] Comment on above: Order Comment: Speci men Type: BLOOD SPECIMEN [facility] Address: [address] [place] [address] Performed By: #### G LTGST #### [facility] CLIA [id number] [address] [place] [address] OF ADAL GESTATIONALAGE AGE > OR = [address]W Yes Normal [facility] Comment on above: Order Comment: Speci men Type: BLOOD SPECIMEN [facility] Address: [address] [place] [address] Performed By: #### G LTGST #### [facility] CLIA [id number] [address] [place]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 Negative <1000 ng/mL [facility] Work Phone: Urine phencyclidine (PCP) de tectionon 08-05-2022 Phencyclidine Ql (U) Negative < 25 ng/mL [facility] Work Phone: BIOPHYSICAL PROFILE [facility] 07-29-2022 [facility] URINE OB DIP B/Oon 2 Glucose Ql (U) Negative Neg mg/dL [facility] Protein.monoclonal (U) [Mass/Vol] Negative Neg mg/dL [facility] BIOPHYSICAL PROFILE [facility] 07-21-2022 [facility] URINE OB DIP B/Oon 2 Glucose Ql (U) Negative Neg mg/dL [facility] Protein.monoclonal (U) [Mass/Vol] Negative Neg mg/dL [facility] BIOPHYSICAL PROFILE [facility] 07-14-2022 [facility] OBSTETRIC ULTRASOUND WHIon 1 09-06-2021 [facility] URINE OB DIP B/Oon 2 Glucose Ql (U) Negative Neg mg/dL [facility] Protein.monoclonal (U) [Mass/Vol] Negative Neg mg/dL [facility] Bilirubin Test strip Ql (U)o n 06-27-2022 Bilirubin Ql (U) Negative Negative [facility] Work Phone: Ketones Test strip Ql (U)on 06-27-2022 Ketones Ql (U) 150 mg/dl Negative [facility] Work Phone: Comment on above: CRITICAL VALUE VERIF IED. CALLED TO BARBARA TRUJILLO RN (WP)06/27/22 1701 Milo Lara.RESULTS READ BACK BY SAME . CRITICAL VALUE *H Nitrite Test strip Ql (U)on 06-27-2022 Nitrite Ql (U) Negative Negative [facility] Work Phone: OB Triage Physician Noteon 1 OB Triage Physician Note [facility] Medical Records Department [address] [place] [address] OB Triage Physician Note 06/27/22 1900 MR#: [id number] Acct: [id number] Name: CALIN GRAF Rep #: [id number] : 1995 27 From: Nelda Lugo CNM PCP: Care Physician,No Primary Status:DEP CLI Y Location: [facility] HPI - General HPI Narrative CALIN GRAF, [...] HART Cosigner Signature (if applicable): Date CC: UCRT Lugo; No Primary Care Physician Signed Normal [facility] Protein Test strip Ql (U)on 06-27-2022 Protein Ql (U) Negative Negative [facility] Work Phone: Urinalysis, Routine (Dipstic k)on 06-27-2022 KETONE UR 150 mg/dl Abnormal Negative [facility] Comment on above: Order Comment: JUNE CTOR TO SPECIFY Result Comment: CRIT ICAL VALUE VERIFIED. CALLED TO BARBARA TRUJILLO RN (WP) 06/27/22 1701 Milo Lara. RESULTS READ BACK BY SAME . CRITICAL VALUE *H Performed By: #### L 400.2010 #### [facility] [address] [place], [address] BILIRUBIN URINE Negative Normal Negative [facility] Comment on above: Order Comment: JUNE REYNAGAOR TO SPECIFY Performed By: #### L 400.2010 #### [facility] [address] [place], [address] Clarity (U) Clear Normal Clear [facility] Comment on above: Order Comment: JUNE REYANGAOR TO SPECIFY Performed By: #### L 400.2010 #### [facility] [address] [place], [address] Color (U) Yellow Normal Yellow [facility] Comment on above: Order Comment: JUNE REYNAGAOR TO SPECIFY Performed By: #### L 400.2010 #### [facility] [address] [place], [address] GLUCOSE, UR Normal Normal Normal [facility] Comment on above: Order Comment: JUNE CTOR TO SPECIFY Performed By: #### L 400.2010 #### [facility] [address] [place], [address] LEUK ESTERASE 25 /ul Abnormal Negative [facility] Comment on above: Order Comment: JUNE CTOR TO SPECIFY Performed By: #### L 400.2010 #### [facility] [address] [place], [address] Nitrite Ql (U) Negative Normal Negative [facility] Comment on above: Order Comment: COLLE CTOR TO SPECIFY Performed By: #### L 400.2010 #### [facility] [address] [place], [address] OCCULT BLOOD-UR Negative Normal Negative [facility] Comment on above: Order Comment: COLLE CTOR TO SPECIFY Performed By: #### L 400.2010 #### [facility] [address] [place], [address] pH UR 5.0 Normal 5.0 - 8.0 [facility] Comment on above: Order Comment: JUNE CTOR TO SPECIFY Performed By: #### L 400.2010 #### [facility] [address] [place], [address] PROT DIPSTX Negative Normal Negative [facility] Comment on above: Order Comment: JUNE CTOR TO SPECIFY Performed By: #### L 400.2010 #### [facility] [address] [place], [address] SP.GR. DIPSTX 1.025 Normal 1.002-1.030 [facility] Comment on above: Order Comment: COLLE CTOR TO SPECIFY Performed By: #### L 400.2010 #### [facility] [address] [place], [address] UROBILI Normal Normal Normal [facility] Comment on above: Order Comment: COLLE CTOR TO SPECIFY Performed By: #### L 400.2010 #### [facility] [address] [place], [address] Urine blood detectionon 06-07 RBC Ql (U) Negative Negative [facility] Rehabilitation Work Phone: Urine clarityon 06-27-2022 Clarity (U) Clear Clear [facility] Work Phone: Urine color determinationon 06-27-2022 Color (U) Yellow Yellow [facility] Work Phone: Urine glucose detectionon Glucose Ql (U) Normal mg/dl Normal [facility] Work Phone: Urine leukocyte esterase det ection by dipstickon 06-27-2022 Leukocyte esterase Test strip Ql (U) 25 /ul Negative [facility] Work Phone: Urine pHon 06-27-2022 pH (U) 5.0 [pH] 5.0 - 8.0 [facility] Work Phone: Urine specific gravity measu rementon 06-27-2022 Specific gravity (U) [Rel density] 1.025 1.002-1.030 [facility] Work Phone: Urobilinogen Auto test strip Ql (U)on 06-27-2022 Urobilinogen Ql (U) Normal mg/dl Normal [facility] Work Phone: OBSTETRIC ULTRASOUND WHIon 1 [facility] URINE OB DIP B/Oon 2 Glucose Ql (U) Negative Neg mg/dL [facility] Protein.monoclonal (U) [Mass/Vol] Negative Neg mg/dL [facility] URINE OB DIP B/Oon 2 Glucose Ql (U) Negative Neg mg/dL [facility] Protein.monoclonal (U) [Mass/Vol] Negative Neg mg/dL [facility] Chest PA and Lateralon 05-08 Chest PA and Lateral [facility] Imaging Services [address] [place] [address] Chest PA and Lateral MR#: [id number] Acct: [id number] Name: CALIN GRAF Rep #: [id number] : 1995 F 27 From: Jeanmarie garcia MD PCP: Care Physician,No Primary Status: REG ER Study: Chest PA and Lateral Date of Exam: 05/07/22 Exam# [id number] Ordering Dr: Richie Mendoza DO INDICATION: Cough [...] Richie Mendoza DO; No 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 [facility] History Encounter for screening [...] Impression: Viral (more content not included)... Normal [facility] URINE OB DIP B/Oon 2 Glucose Ql (U) Negative Neg mg/dL [facility] Protein.monoclonal (U) [Mass/Vol] Negative Neg mg/dL [facility] OBSTETRIC ULTRASOUND WHIon 0 03-31-2022 [facility] URINE OB DIP B/Oon 2 Glucose Ql (U) Negative Neg mg/dL [facility] Protein.monoclonal (U) [Mass/Vol] Negative Neg mg/dL [facility] No Panel Informationon 03-12 POC SARS CoV-2 Antigen Negative [facility] Work Phone: Basophil percentageon 2021 Basophil percentage 0 SEEN /hpf 0-5 [facility] Work Phone: Bilirubin Test strip Ql (U)o n 02-27-2022 Bilirubin Ql (U) Negative Negative [facility] Work Phone: Ketones Test strip Ql (U)on 02-27-2022 Ketones Ql (U) Negative Negative [facility] Work Phone: Mucus LM Ql (Urine sed)on Mucus Ql (Urine sed) 0 SEEN /hpf [facility] Work Phone: Nitrite Test strip Ql (U)on 02-27-2022 Nitrite Ql (U) Negative Negative [facility] Work Phone: Protein Test strip Ql (U)on 02-27-2022 Protein Ql (U) Negative Negative [facility] Work Phone: Squamous epithelial cells de tection in urine sediment by light microscopyon 02-27-2022 Epithelial cells.squamous LM Ql (Urine sed) 0 SEEN /hpf 5-10 [facility] Work Phone: Urine blood detectionon 02-05 RBC Ql (U) Negative Negative [facility] Work Phone: RBC Ql (U) 0 SEEN /hpf 0-5 [facility] Work Phone: Urine clarityon 02-27-2022 Clarity (U) Clear Clear [facility] Work Phone: Urine color determinationon 02-27-2022 Color (U) Yellow Yellow [facility] Work Phone: Urine glucose detectionon Glucose Ql (U) Normal mg/dl Normal [facility] Work Phone: Urine leukocyte esterase det ection by dipstickon 02-27-2022 Leukocyte esterase Test strip Ql (U) Negative Negative [facility] Work Phone: Urine pHon 02-27-2022 pH (U) 6.0 [pH] 5.0 - 8.0 [facility] Work Phone: Urine sediment bacteria coun t by microscopy (number/high power field)on 02-27-2022 Bacteria LM.HPF (Urine sed) [#/Area] 0 /[HPF] None Seen [facility] Work Phone: Urine specific gravity measu rementon 02-27-2022 Specific gravity (U) [Rel density] 1.020 1.002-1.030 [facility] Work Phone: Urobilinogen Auto test strip Ql (U)on 02-27-2022 Urobilinogen Ql (U) Normal mg/dl Normal [facility] Work Phone: Hepatic function 2000 panelo n 02-17-2022 Albumin [Mass/Vol] 4.3 g/dL 3.9 - 4.9 g/dL [facility] ALP [Catalytic activity/Vol] 71 U/L 34 - 123 U/L [facility] ALT [Catalytic activity/Vol] 76 U/L High 7 - 38 U/L [facility] AST [Catalytic activity/Vol] 57 U/L High 13 - 35 U/L [facility] Bilirubin [Mass/Vol] 0.3 mg/dL 0.2 - 1 .3 mg/dL [facility] Bilirubin.conjugated [Mass/Vol] mg/dL <0.2 mg/dL [facility] Protein [Mass/Vol] 7.5 g/dL 6.3 - 8.0 g/dL [facility] No Panel Informationon 02-17 [facility] URINE OB DIP B/Oon 2 Glucose Ql (U) Negative Neg mg/dL [facility] Protein.monoclonal (U) [Mass/Vol] Negative Neg mg/dL [facility] Absolute lymphocyte counton 12-23-2021 Lymphocytes Auto (Unsp spec) [#/Vol] 3.54 10*3/uL 0.83-4.51 [facility] Work Phone: Basophil percentageon 2021 Basophils/100 WBC (Bld) 0.3 % 0-1 [facility] Work Phone: Eosinophils/100 WBC (Bld) 1.0 % 0-5 [facility] Work Phone: Neutrophils (Bld) [#/Vol] 4.4 10*3/uL 2.0-7.7 [facility] Work Phone: Neutrophils/100 WBC (Bld) 51.7 % 47-70 [facility] Work Phone: WBC (Bld) [#/Vol] 8.6 10*3/uL 4.4-11.0 [facility] Work Phone: Basophil percentage 0-5 [facility]EN [facility] Work Phone: Bilirubin Test strip Ql (U)o n 12-23-2021 Bilirubin Ql (U) Negative Negative [facility] Work Phone: Blood erythrocytes count (nu mber/volume)on 12-23-2021 RBC (Bld) [#/Vol] 4.88 10*6/uL 4.2-5.4 [facility]: Blood hemoglobin measurement (mass/volume)on 12-23-2021 Hemoglobin (Bld) [Mass/Vol] 14.2 g/dL 12.0-15.0 [facility] Work Phone: Blood lymphocytes/100 leukoc yteson 12-23-2021 Lymphocytes/100 WBC (Bld) 41.3 % 19-41 [facility] Work Phone: Blood monocytes/100 leukocyt eson 12-23-2021 Monocytes/100 WBC (Bld) 5.6 % 0-10 [facility] Work Phone: Blood platelet mean volumeon 12-23-2021 Platelet mean volume (Bld) [Entitic vol] 9.9 fL 6.2-12.0 [facility] Work Phone: Determination of erythrocyte mean corpuscular volume (MCV)on 12-23-2021 MCV (RBC) [Entitic vol] 90.2 fL 81-99 [facility] Work Phone: Hematocrit Auto (Bld) [Volum e fraction]on 12-23-2021 Hematocrit (Bld) [Volume fraction] 44.0 % 37-47 [facility] Work Phone: Ketones Test strip Ql (U)on 12-23-2021 Ketones Ql (U) Negative Negative [facility] Work Phone: Laboratory - Hematology and Cell countson 12-23-2021 Erythrocyte distribution width (RBC) [Entitic vol] 46.5 fL 35.1-43.9 [facility] Work Phone: [phone] Erythrocyte distribution width (RBC) [Ratio] 14.0 % 11.6-14.6 [facility] Work Phone: [phone] Immature granulocytes/100 WBC (Bld) 0.100 % 0.0-0.9 [facility] Work Phone: [phone] Comment on above: IG% - Immature Granu locytes (promyelocytes, myelocytes and metamyelocytes) > 1% indicates that a LEFT SHIFT is Present. MCH (RBC) [Entitic mass] 29.1 pg 27.0-32.0 [facility] Work Phone: [phone] Nucleated RBC/100 WBC (Bld) [Ratio] 0 % 0-5 [facility] Work Phone: [phone] MCHC Auto (RBC) [Mass/Vol]on 12-23-2021 MCHC (RBC) [Mass/Vol] 32.3 g/dL 32-36 [facility] Work Phone: Mucus LM Ql (Urine sed)on Mucus Ql (Urine sed) 0 SEEN /hpf [facility] Work Phone: [phone] Nitrite Test strip Ql (U)on 12-23-2021 Nitrite Ql (U) Negative Negative [facility] Work Phone: [phone] Platelets bldon 12-23-2021 Platelets (Bld) [#/Vol] 331 10*3/uL 150-450 [facility] Work Phone: [phone] Protein Test strip Ql (U)on 12-23-2021 Protein Ql (U) Negative Negative [facility] Work Phone: [phone] Serum or plasma choriogonado tropin detectionon 12-23-2021 HCG ( test) Ql 966 mIU/mL <4 [facility] Work Phone: [phone] Comment on above: hCG levels with Gest ational AgeGestational Age hCG mIU/mL (IU/L)0.2 - 1 week 5 - 501-2 weeks 50 - 5002-3 weeks 100 - 60491-7 weeks 500 - 205649-6 weeks 1000 - 753086-7 weeks 02229 - 100,0006-8 weeks 45721 - 200,0002-3 months 37641 - 100,000 Squamous epithelial cells de tection in urine sediment by light microscopyon 12-23-2021 Epithelial cells.squamous LM Ql (Urine sed) 0-5 SEEN /hpf [facility] Work Phone: Urine blood detectionon 12-05 RBC Ql (U) 50 /ul Negative [facility] Work Phone: RBC Ql (U) 0 SEEN /hpf [facility] Work Phone: Urine clarityon 12-23-2021 Clarity (U) Clear Clear [facility] Work Phone: Urine color determinationon 12-23-2021 Color (U) Yellow Yellow [facility] Work Phone: Urine glucose detectionon Glucose Ql (U) Normal mg/dl Normal [facility] Work Phone: Urine leukocyte esterase det ection by dipstickon 12-23-2021 Leukocyte esterase Test strip Ql (U) 25 /ul Negative [facility] Work Phone: Urine pHon 12-23-2021 pH (U) 6.0 [pH] [facility] Work Phone: Urine sediment bacteria coun t by microscopy (number/high power field)on 12-23-2021 Bacteria LM.HPF (Urine sed) [#/Area] 0 /[HPF] None Seen [facility] Work Phone: Urine specific gravity measu rementon 12-23-2021 Specific gravity (U) [Rel density] 1.015 [facility] Work Phone: Urobilinogen Auto test strip Ql (U)on 12-23-2021 Urobilinogen Ql (U) Normal mg/dl Normal [facility] Work Phone: CBLon 07-18-2017 CBL . MICRO [...] days.Performing Locations*1: This test was performed at: [address], [address] [place] [address] ([place]) Comment on above: Performed By: #### C BL ####[place] [address] Hemogramon 07-16-2017 Erythrocyte distribution width Auto Ratio (RBC) 13.4 % Normal 11.5-14.5 [facility] Comment on above: Performed By: #### E SR, CRP2, QWAL, CRTN3 ####[address] [address] Erythrocytes (RBC) 4.43 10*6/uL Normal 3.80-5.20 [facility] Comment on above: Performed By: #### E SR, CRP2, QWAL, CRTN3 ####[address] [address] Hematocrit (HCT) 40.1 % Normal 35.0-47.0 [facility] Comment on above: Performed By: #### E SR, CRP2, QWAL, CRTN3 ####[address] [address] Hemoglobin mass conc (Bld) 13.3 g/dL Normal 11.7-16.0 [facility] Comment on above: Performed By: #### E SR, CRP2, QWAL, CRTN3 ####[address] [address] MCH 30.0 pg Normal 26.0-34.0 [facility] Comment on above: Performed By: #### E , CRP2, QDAISY, CRTN3 ####[address] [address] MCHC mass conc (RBC) 33.1 % Normal 32.0-36.0 [facility] Comment on above: Performed By: #### E SR, CRP2, QWAL, CRTN3 ####[address] [address] MCV 90.5 fL Normal 79.0-98.0 [facility] Comment on above: Performed By: #### E , CRP2, QDAISY, CRTN3 ####[address] [address] Platelet mean volume (PMV) 8.6 fL Normal 7.4-10.4 [facility] Comment on above: Performed By: #### E , CRP2, QWAL, CRTN3 ####[address] [address] Platelets 323 10*3/uL Normal 140-440 [facility] Comment on above: Performed By: #### E , CRP2, RAINA, CRTN3 ####[address] [address] WBC (Leukocytes) 8.6 10*3/uL Normal 3.6-10.7 [facility] [place] [facility] Comment on above: Performed By: #### E SR, CRP2, QWAL, CRTN3 ####[address] [address] Hemogramon 07-15-2017 Erythrocyte distribution width Auto Ratio (RBC) 14.1 % Normal 11.5-14.5 [facility] Comment on above: Performed By: #### E SR, CRP2, QWAL, CRTN3 ####[address] [address] Erythrocytes (RBC) 4.46 10*6/uL Normal 3.80-5.20 [facility] Comment on above: Performed By: #### E SR, CRP2, QWAL, CRTN3 ####[address] [address] Hematocrit (HCT) 41.3 % Normal 35.0-47.0 [facility] Comment on above: Performed By: #### E SR, CRP2, QWAL, CRTN3 ####[address] [address] Hemoglobin mass conc (Bld) 13.4 g/dL Normal 11.7-16.0 [facility] Comment on above: Performed By: #### E SR, CRP2, QWAL, CRTN3 ####[address] [address] MCH 30.0 pg Normal 26.0-34.0 [facility] Comment on above: Performed By: #### E SR, CRP2, QWAL, CRTN3 ####[address] [address] MCHC mass conc (RBC) 32.4 % Normal 32.0-36.0 [facility] Comment on above: Performed By: #### E SR, CRP2, QWAL, CRTN3 ####[address] [address] MCV 92.5 fL Normal 79.0-98.0 [facility] Comment on above: Performed By: #### E SR, CRP2, QWAL, CRTN3 ####[address] [address] Platelet mean volume (PMV) 8.6 fL Normal 7.4-10.4 [facility] Comment on above: Performed By: #### E SR, CRP2, QWAL, CRTN3 ####[address] [address] Platelets 324 10*3/uL Normal 140-440 [facility] Comment on above: Performed By: #### E SR, CRP2, QWAL, CRTN3 ####[address] [address] WBC (Leukocytes) 8.8 10*3/uL Normal 3.6-10.7 [facility] [place] [facility] Comment on above: Performed By: #### E SR, CRP2, QDAISY, CRTN3 ####[place] [address] [place] [address] Vancomycin Troughon 07-15-20 17 Vancomycin Trough 14.2 ug/mL Low 15.0-20.0 [facility] [place] [facility] Comment on above: Result Comment: . Performed By: #### E SR, CRP2, QDAISY, CRTN3 ####[place] [address] [place] [address] Basic Metabolic Panelon 11-0 Anion gap 9 mmol/L Normal [facility] Comment on above: Performed By: #### P T ####[place] [address] [place] [address] Creatinine 0.52 mg/dL Low 0.55-1.40 [facility] Comment on above: Performed By: #### P T ####[place] [address] [place] [address] eGFR (black) mL/min/{1.73_m2} Normal >60 [facility] Comment on above: Performed By: #### P T ####[place] [address] [place] [address] eGFR (non-black) mL/min/{1.73_m2} Normal >60 [facility] Comment on above: Result Comment: Sour ce- MDRD equation with creatinine calibration to IDMS(NKDEP)eGFR not recommended for drug dose adjustment Performed By: #### P T ####[place] [address] [place] [address] Calcium 7.7 mg/dL Low 8.2-10.1 [facility] Comment on above: Performed By: #### P T ####[place] [address] [place] [address] Glucose mass conc 92 mg/dL Normal 70-100 [facility] [place] [facility] Comment on above: Performed By: #### P T ####[place] [address] [place] [address] Urea nitrogen 5 mg/dL Low 7-[address] [facility] Comment on above: Performed By: #### P T ####[facility] [place] [address] CO2 23 mmol/L Normal 21-32 [facility] Comment on above: Performed By: #### P T ####[address] [place] [address] Chloride 105 mmol/L Normal 98-109 [facility] Comment on above: Performed By: #### P T ####[address] [place] [address] Potassium molar conc 3.9 mmol/L Normal 3.5-5.1 [facility] Comment on above: Performed By: #### P T ####[address] [address] Sodium 137 mmol/L Normal 135-145 [facility] Comment on above: Performed By: #### P T ####[address] [address] Free T4on 07-14-2017 Thyroxine (T4) free 1.10 ng/dL Normal 0.76-1.46 [facility] Comment on above: Performed By: #### E SR, CRP2, QWAL, CRTN3 ####[address] [address] HIV 1,2 Ab; p24 Agon 017 HIV 1,2 Ab; p24 Ag NONREACTIVE Normal Nonreactive [facility] Comment on above: Result Comment: Resu [...] By: #### E SR, CRP2, QWAL, CRTN3 ####[place] [address] [address] Hemoglobin A1Con 07-14-2017 Glucose mass conc 117 mg/dL Normal [facility] [place] [facility] Comment on above: Performed By: #### E SR, CRP2, QWAL, CRTN3 ####[place] [address] Hemoglobin A1c/Hemoglobin.total mass fraction (Bld) 5.7 % High 4.0-5.6 [facility] Comment on above: Result Comment: --Hg bA1C levels may not be accurate in patients who haverenal disease, received recent blood transfusions, are anemic,or who have dyshemoglobinemia. Performed By: #### E SR, CRP2, QWAL, CRTN3 ####[place] [address] Hemogramon 07-14-2017 Erythrocyte distribution width Auto Ratio (RBC) 14.1 % Normal 11.5-14.5 [facility] Comment on above: Performed By: #### P T ####[place] [address] Erythrocytes (RBC) 3.97 10*6/uL Normal 3.80-5.20 [facility] Comment on above: Performed By: #### P T ####[place] [address] Hematocrit (HCT) 36.4 % Normal 35.0-47.0 [facility] Comment on above: Performed By: #### P T ####[place] [address] Hemoglobin mass conc (Bld) 12.1 g/dL Normal 11.7-16.0 [facility] Comment on above: Performed By: #### P T ####[place] [address] MCH 30.6 pg Normal 26.0-34.0 [facility] Comment on above: Performed By: #### P T ####[place] [address] MCHC mass conc (RBC) 33.4 % Normal 32.0-36.0 [facility] Comment on above: Performed By: #### P T ####[place] [address] MCV 91.7 fL Normal 79.0-98.0 [facility] Comment on above: Performed By: #### P T ####[place] [address] [address] Platelet mean volume (PMV) 9.4 fL Normal 7.4-10.4 [facility] Comment on above: Performed By: #### P T ####[place] [address] [address] Platelets 253 10*3/uL Normal 140-440 [facility] Comment on above: Performed By: #### P T ####[address] [address] WBC (Leukocytes) 11.9 10*3/uL High 3.6-10.7 [facility] Comment on above: Performed By: #### P T ####[address] [address] Hep B Surface Abon 7 Hep B Surface Ab 56.6 m[IU]/mL Normal [facility] Comment on above: Result Comment: Inte rpretation:<8.00 Non-Reactive8.00-11.99 Equivocal>= 12.00 Ab Detected Performed By: #### Mandi STRICKLAND, CRP2, QWAL, CRTN3 ####[place] [id number] Hep B Surface Agon 7 Hep B Surface Ag NOT DETECTED Normal Not-Detected [facility] Comment on above: Performed By: #### Mandi STRICKLAND, CRP2, QWAL, CRTN3 ####[place] [address] [address] Hep C Antibodyon 07-14-2017 Hep C Antibody DETECTED Abnormal Not-Detected [facility] Comment on above: Result Comment: Ivone ents with DETECTED Hepatitis C Ab results should have a new specimensubmitted for supplemental testing with a Hepatitis C Quantitative RNA assay(viral load), if clinically indicated. Performed By: #### Mandi STRICKLAND, CRP2, QWAL, CRTN3 ####[place] [address] [address] Hepatic Functionon 7 Alkaline phosphatase (ALP) 74 U/L Normal 45-117 [facility] Comment on above: Performed By: #### P T ####[place] [address] [place] [address] Protein 6.1 g/dL Low 6.4-8.2 [facility] Comment on above: Performed By: #### P T ####[place] [address] [place] [address] Alanine aminotransferase (ALT) 96 U/L High 12-78 [facility] Comment on above: Performed By: #### P T ####[place] [address] [place] [address] Bilirubin (total) 0.2 mg/dL Normal 0.2-1.0 [facility] Comment on above: Performed By: #### P T ####[address] [place] [address] Aspartate aminotransferase (AST) 42 U/L High 15-37 [facility] Comment on above: Performed By: #### P T ####[address] [place] [address] Albumin 2.4 g/dL Low 3.4-5.0 [facility] Comment on above: Performed By: #### P T ####[place] [address] [place] [address] Bilirubin (direct) mg/dL Normal 0.0-0.2 [facility] Comment on above: Performed By: #### P T ####[place] [address] [place] [address] Thyroid Stim. Hormoneon 11-0 Thyroid Stim. Hormone 0.274 uU/mL Low 0.358-3.740 [facility] Comment on above: Performed By: #### P T ####[place] [address] [place] [address] .Auto Diffon 07-13-2017 Basophils Auto #/vol (Bld) 0.10 10 3/mcL Normal 0.00-0.19 [facility] ([place]) Comment on above: Performed By: #### C BC, ADIFF, ANEU, GFR, BMP ####[place] [id number] [place], [place] [address] Basophils/100 WBC Auto (Bld) 0.5 % Normal 0.0-2.5 [facility] ([place]) Comment on above: Performed By: #### C BC, ADIFF, ANEU, GFR, BMP ####[address] [place], [place] [address] Eosinophils 0.10 10 3/mcL Normal 0.00-0.40 [facility] ([place]) Comment on above: Performed By: #### C BC, ADIFF, ANEU, GFR, BMP ####[address] [place], [place] [address] Eosinophils/100 leukocytes 0.8 % Normal 0.0-7.0 [facility] ([place]) Comment on above: Performed By: #### C BC, ADIFF, ANEU, GFR, BMP ####[address] [place], [place] [address] Lymphocytes 2.60 10 3/mcL Normal 0.77-3.85 [facility] ([place]) Comment on above: Performed By: #### C BC, ADIFF, ANEU, GFR, BMP ####[address] [place], [place] [address] Lymphocytes/100 leukocytes 21.3 % Normal 10.0-50.0 [facility] ([place]) Comment on above: Performed By: #### C BC, ADIFF, ANEU, GFR, BMP ####[address] [place], [place] [address] Monocytes 1.20 10 3/mcL High 0.15-1.00 [facility] ([place]) Comment on above: Performed By: #### C BC, ADIFF, ANEU, GFR, BMP ####[address] [place], [place] [address] Monocytes/100 leukocytes 9.7 % Normal 1.7-13.0 [facility] ([place]) Comment on above: Performed By: #### C BC, ADIFF, ANEU, GFR, BMP ####[address] [place], [place] [address] Neutrophils/100 WBC Auto (Bld) 67.7 % Normal 37.0-80.0 [facility] ([place]) Comment on above: Performed By: #### C BC, ADIFF, ANEU, GFR, BMP ####[address] [place], [place] [address] .GFRon 07-13-2017 eGFR (non-black) mL/min/{1.73_m2} Normal [facility] ([place]) Comment on above: Result Comment: GFR Population [...] BC, ADIFF, ANEU, GFR, BMP ####[address] [place], [place] [address] eGFR (non-black) 144 ml/min/1.73sqm Normal [facility] ([place]) Comment on above: Result Comment: GFR Population [...] C BC, ADIFF, ANEU, GFR, BMP ####[address] [place], [place] [address] .NEUABSon 07-13-2017 Neutrophils 8.40 10 3/mcL High 2.85-6.16 Formerly [facility] ([place]) Comment on above: Performed By: ###TAJ GIRON ANEU, GFR, BMP ####[address] [place], [place] [address] Antibody Identificationon Antibody Identification PATIENT: DEE ALEGRIA LOC: 1EDI,1ECB,28BILL# : [id number] : 1995 SEX: F AGE: 22ORDERED BY: CANDACE CHI ORDERED : 07/13/2017 04:30 COLLECTED: 07/13/2017 02:28ORDER : [id number] RECEIVED : 07/13/2017 03:47 TEST NAME RESULT UNITS RANGES ABN FL STAntibody Identification POS, ANTI E F ------ Normal [facility] Comment on above: Performed By: #### T SGL, ABID, E-A, LC-A ####[address] [address] BMPon 07-13-2017 Chloride 99 mmol/L Normal 98-107 [facility] ([place] Comment on above: Performed By: ###TAJ GIRON ANEU, GFR, BMP ###Roseanna [address] [place], [place] [address] Electrolyte Balance 7.0 mEq/L Normal [facility] ([place]) Comment on above: Performed By: ###TAJ GIRON ANEU, GFR, BMP ####[address] [place], [place] [address] Glucose mass conc 108 mg/dL High 70-105 [facility] ([place]) Comment on above: Performed By: #### C BC, ADIFF, ANEU, GFR, BMP ####[address] [place], [place] [address] Potassium molar conc 3.5 mmol/L Normal 3.5-5.1 [facility] ([place]) Comment on above: Performed By: #### C BC, ADIFF, ANEU, GFR, BMP ####[address] [place], [place] [address] Sodium 134 mmol/L Low 136-146 [facility] ([place] Comment on above: Performed By: #### C BC, ADIFF, ANEU, GFR, BMP ####[address] [place], [place] [address] BUN/Creatinine Ratio 9 ratio Normal 7-27 [facility] ([place]) Comment on above: Performed By: #### C BC, ADIFF, ANEU, GFR, BMP ####[address] [place], [place] [address] Calcium 9.3 mg/dL Normal 8.4-10.2 [facility] ([place]) Comment on above: Performed By: #### C BC, ADIFF, ANEU, GFR, BMP ####[address] [place], [place] [address] CO2 28 mmol/L Normal 22-29 [facility] ([place]) Comment on above: Performed By: #### C BC, ADIFF, ANEU, GFR, BMP ####[address] [place], [place] [address] Creatinine 0.6 mg/dL Normal 0.6-1.2 [facility] ([place]) Comment on above: Performed By: #### C BC, ADIFF, ANEU, GFR, BMP ####[address] [place], [place] [address] Urea nitrogen 5.4 mg/dL Low 7.0-18.0 [facility] ([place]) Comment on above: Performed By: #### C BC, ADIFF, ANEU, GFR, BMP ####[address] [place], [place] [address] C-Reactive Proteinon 017 C reactive protein (CRP) 40.0 mg/L High 0.0-2.9 [facility] Comment on above: Result Comment: . Performed By: #### E SR, CRP2, QWAL, CRTN3 ####[place] [address] [address] [place] [address] CBCon 07-13-2017 Erythrocyte distribution width Auto Ratio (RBC) 13.4 % Normal 11.5-14.5 [facility] ([place]) Comment on above: Performed By: #### C BC, ADIFF, ANEU, GFR, BMP ####[address] [place], [place] [address] Erythrocytes (RBC) 4.41 10 6/mcL Normal 4.20-5.40 [facility] ([place]) Comment on above: Performed By: #### C BC, ADIFF, ANEU, GFR, BMP ####[address] [place], [place] [address] Hematocrit (HCT) 39.2 % Normal 37.0-47.0 [facility] ([place]) Comment on above: Performed By: #### Farhana BC, ADIFF, ANEU, GFR, BMP ####[address] [place], [place] [address] Hemoglobin mass conc (Bld) 13.1 G/dL Normal 12.0-16.0 [facility] ([place] Comment on above: Performed By: #### C BC, ADIFF, ANEU, GFR, BMP ####[address] [place], [place] [address] MCH 29.6 pg Normal 27.0-31.2 [facility] ([place] Comment on above: Performed By: #### C BC, ADIFF, ANEU, GFR, BMP ####[address] [place], [place] [address] MCHC mass conc (RBC) 33.3 G/dL Normal 33.0-37.0 [facility] ([place]) Comment on above: Performed By: #### C BC, ADIFF, ANEU, GFR, BMP ####[address] [place], [place] [address] MCV 88.9 fL Normal 80.0-94.0 [facility] ([place]) Comment on above: Performed By: #### C BC, ADIFF, ANEU, GFR, BMP ####[id number] [place], [place] [address] Platelet mean volume (PMV) 8.5 fL Normal 7.4-10.4 [facility] ([place]) Comment on above: Performed By: #### C BC, ADIFF, ANEU, GFR, BMP ####[address] [place], [place] [address] Platelets 235 10 3/mcL Normal 130-400 [facility] ([place]) Comment on above: Performed By: #### C BC, ADIFF, ANEU, GFR, BMP ####[address] [place], [place] [address] WBC (Leukocytes) 12.40 10 3/mcL High 4.60-10.80 [facility] ([place]) Comment on above: Performed By: #### C BC, ADIFF, ANEU, GFR, BMP ####[id number] [place], [place] [address] CR Hand Complete 3+ Views Danielle medrano 07-13-2017 CR Hand Complete 3+ Views Right Patient Name: CALIN GRAF Diagnostic Radiology Exam Date/Time 07/13/2017 02:45:57 EST Exam CR Hand Complete 3+ Views Right Ordering Physician ALON MARIA Accession Number [id number] CPT4 Codes 52942 () Reason For Exam middle finger flexor [...] Transcribed Date and Time: 07/13/2017 3:12 Normal [facility] CULT./ST. BACTERIAon 017 CULT./ST. BACTERIA OR collectedOR june [facility] Patient name: CALIN GRAFR.N.: [id number] : 1995 Age: 22 Sex: F Ord. Physician: DMITRIY DIXON Location: [address] [place] [address] Copy to: DMITRIY DIXON Adm. Date: 07/13/17 MICROBIOLOGYORDER#: [id number] COLLECTED: 07/13/17 06:36SOURCE: Wound right middle finger [...] S-DD=SUSCEPTIBLE DOSE DEPENDENT RADHA VALUES = ug/mL [facility] Comment on above: Performed By: #### P T ####[address] [address] CULTURE ANAEROBEon 7 CULTURE ANAEROBE [facility] Patient name: DEECALINRAnselmoN.: [id number] : 1995 Age: 22 Sex: F Ord. Physician: DMITRIY DIXON Location: [address] [place] [address] Copy to: DMITRIY DIXON DISCHARGED: 07/16/17 Adm. Date: 07/13/17 MICROBIOLOGYORDER#: [id number] COLLECTED: 07/13/17 06:36SOURCE: Wound right middle finger RECEIVED: 07/13/17 11:15 JORGE Escobar S OR collectedCULTURE ANAEROBE FINAL 07/18/17 15:30109/17/16No growth of anaerobes at [address] [facility] Comment on above: Performed By: #### P T ####[address] [place] [address] Creatinineon 07-13-2017 Creatinine 0.68 mg/dL Normal 0.55-1.40 [facility] Comment on above: Performed By: #### E SR, CRP2, QWAL, CRTN3 ####[address] [place] [address] eGFR (black) mL/min/{1.73_m2} Normal >60 [facility] Comment on above: Performed By: #### E SR, CRP2, QWAL, CRTN3 ####[address] [place] [address] eGFR (non-black) mL/min/{1.73_m2} Normal >60 [facility] Comment on above: Result Comment: Sour ce- MDRD equation with creatinine calibration to IDMS(NKDEP)eGFR not recommended for drug dose adjustment Performed By: #### E SR, CRP2, QDAISY, CRTN3 ####[address] [place] [address] Drugs of Abuseon 07-13-2017 Amphetamines, Ur Positive Normal [facility] Comment on above: Performed By: #### P T ####[address] [place] [address] Cocaine, Ur Negative Normal [facility] Comment on above: Performed By: #### P T ####[address] [place] [address] Methadone, Ur Negative [facility] Comment on above: Performed By: #### P T ####[address] [place] [address] Opiates, Ur Positive Normal [facility] Comment on above: Performed By: #### P T ####[address] [place] [address] Oxycodone/Oxymorphine ,Ur Negative Normal [facility] Comment on above: Performed By: #### P T ####[address] [place] [address] Barbiturates, Ur Negative Normal [facility] Comment on above: Performed By: #### P T ####[place] [address] Benzodiazepines, Ur Negative [facility] Comment on above: Performed By: #### P T ####[place] [address] Phencyclidine (PCP), Ur Negative [facility] Comment on above: Result Comment: The [...] non-forensic procedures. Performed By: #### P T ####[place] [address] E Antigenon 07-13-2017 E Antigen PATIENT: DEE OTERO LOC: 1EDI,1ECB,28[facility]# : [id number] : 1995 SEX: F AGE: 22ORDERED BY: CANDACE CHI ORDERED : 07/13/2017 05:34 COLLECTED: 07/13/2017 02:28ORDER : [id number] RECEIVED : 07/13/2017 03:47 TEST NAME RESULT UNITS RANGES ABN FL CHINYERE Antigen NEG F ------ Normal [facility] Comment on above: Performed By: #### P T ####[place] [address] Performed By: #### T SILVIO AU, E-A, LC-A ####[address] [address] Little c Antigenon 7 Little c Antigen PATIENT: DEE OTERO LOC: 1EDI,1ECB,28BILL# : [id number] : 1995 SEX: F AGE: 22ORDERED BY: CANDACE CHI ORDERED : 07/13/2017 05:34 COLLECTED: 07/13/2017 02:28ORDER : [id number] RECEIVED : 07/13/2017 03:47 TEST NAME RESULT UNITS RANGES ABN FL STLittle c Antigen NEG F ------ Normal [facility] Comment on above: Performed By: #### T ROE, SILVIO, E-A, LC-A ####[place] [address] Performed By: #### P T ####[address] Emergency Room Note on 07-13-2017 [place] [facility] Note Normal [facility] ([place]) Prothrombin Timeon 7 INR Coag RelTime (PPP) 1.0 {INR} Normal 0.9-1.1 [facility] Comment on above: Result Comment: Myron [...] preventMyocardial Infarction Performed By: #### P T ####[place] [address] Prothrombin time (PT) Coag time (PPP) 10.9 s Normal 9.0-12.0 [facility] Comment on above: Result Comment: . Performed By: #### P T ####[place] [address] Sed Rateon 07-13-2017 Sed Rate 15 mm/h Normal 0-20 [facility] Comment on above: Performed By: #### E SR, CRP2, QWAL, CRTN3 ####[place] [address] Serum Drug Screenon 07-13-20 17 Specimen Type Whole Blood Normal [facility] Comment on above: Performed By: #### P T ####[place] [address] Volatiles None Detected Normal [facility] Comment on above: Performed By: #### P T ####[place] [address] Acetaminophen mass conc NONE DETECTED Normal 10.0-20.0 [facility] Comment on above: Performed By: #### P T ####[place] [address] Salicylates NONE DETECTED Normal 0.0-25.0 [facility] Comment on above: Result Comment: NORM AL RANGEAnalgesic 8-22Ojqu-mmypojbdjqcf 10-25 Performed By: #### P T ####[place] [address] Tri. Antidepressant Screen Negative Normal [facility] Comment on above: Result Comment: Tric yclic antidepressants have been screened for byimmunoassay at 300 ng/mL threshold. Performed By: #### P T ####[id number] TS GELon 07-13-2017 TS GEL PATIENT: DEE OTERO LOC: 1EDI,1ECB,28BILL# : [id number] : 1995 SEX: F AGE: 22ORDERED BY: CANDACE CHI ORDERED : 07/13/2017 02:15 COLLECTED: 07/13/2017 02:28ORDER : [id number] RECEIVED : 07/13/2017 03:47 TEST NAME RESULT UNITS RANGES ABN FL STABO Group O FRh, Gel POS FAntibody Screen Gel POS F ------ Normal [facility] Comment on above: Performed By: #### T SGL, ABID, E-A, LC-A ####[address] [place] [id number] XR HAND MINIMUM 3 VIEWS RIGH Ton [...] PM Sign Date: 07/12/2017 11:51:04 PM Normal [facility] ([place]) hCG Qual Pregon 07-13-2017 hCG Qual Preg Negative Normal [facility] Comment on above: Result Comment: REF RANGE:Negative .... < 3Questionable Rpt 48-72 HrPositive ..... > 10 Performed By: #### E SR, CRP2, QWAL, CRTN3 ####[address] [address] DDI VIBRATION CONTROLLED TRA NSIENT ELASTOGRAPHY (VCTE) [facility] Vital Signs Date Time Vital Sign Value Performing Clinician Facility 03-13-2025 14:51-0400 Body mass index (BMI) [Ratio] 32.12 kg/m2 Kayla Robb MD Work Phone: [facility] 03-13-2025 14:51-0400 Body weight 87.54 kg Kayla Robb MD Work Phone: [facility] 03-13-2025 14:51-0400 Diastolic blood pressure 68 mm[Hg] Kayla Robb MD Work Phone: [facility] 03-13-2025 14:51-0400 Systolic blood pressure 112 mm[Hg] Kayla Robb MD Work Phone: [facility] 03-07-2025 11:04-0400 Body mass index (BMI) [Ratio] 31.78 kg/m2 Kayla Robb MD Work Phone: [facility] 03-07-2025 11:04-0400 Body weight 86.64 kg Kayla Robb MD Work Phone: [facility] 03-07-2025 11:04-0400 Diastolic blood pressure 76 mm[Hg] Kayla Robb MD Work Phone: [facility] 03-07-2025 11:04-0400 Systolic blood pressure 116 mm[Hg] Kayla Robb MD Work Phone: [facility] 03-01-2025 11:03-0400 Body mass index (BMI) [Ratio] 31.62 kg/m2 Kayla Robb MD Work Phone: [facility] 03-01-2025 11:03-0400 Body weight 86.18 kg Kayla Robb MD Work Phone: [facility] 03-01-2025 11:03-0400 Diastolic blood pressure 78 mm[Hg] Kayla Robb MD Work Phone: [facility] 03-01-2025 11:03-0400 Systolic blood pressure 118 mm[Hg] Kayla Robb MD Work Phone: [facility] 02-14-2025 13:34-0400 Body mass index (BMI) [Ratio] 31.12 kg/m2 Lachelle Kramer MD Work Phone: [facility] 02-14-2025 13:34-0400 Body weight 84.82 kg Lachelle Kramer MD Work Phone: [facility] 02-14-2025 13:34-0400 Diastolic blood pressure 72 mm[Hg] Lachelle Kramer MD Work Phone: [facility] 02-14-2025 13:34-0400 Systolic blood pressure 114 mm[Hg] Lachelle Kramer MD Work Phone: [facility] 01-31-2025 11:42-0400 Body mass index (BMI) [Ratio] 29.79 kg/m2 Kayla Robb MD Work Phone: [facility] 01-31-2025 11:42-0400 Body weight 81.19 kg Kayla Robb MD Work Phone: [facility] 01-31-2025 11:42-0400 Diastolic blood pressure 62 mm[Hg] Kayla Robb MD Work Phone: [facility] 01-31-2025 11:42-0400 Systolic blood pressure 108 mm[Hg] Kayla Robb MD Work Phone: [facility] 01-17-2025 13:20-0400 Body mass index (BMI) [Ratio] 29.62 kg/m2 Kayla Robb MD Work Phone: [facility] 01-17-2025 13:20-0400 Body weight 80.74 kg Kayla Robb MD Work Phone: [facility] 01-17-2025 13:20-0400 Diastolic blood pressure 68 mm[Hg] Kayla Robb MD Work Phone: [facility] 01-17-2025 13:20-0400 Systolic blood pressure 114 mm[Hg] Kayla Robb MD Work Phone: [facility] 01-03-2025 13:22-0400 Body mass index (BMI) [Ratio] 30.62 kg/m2 Hank Boss MD Work Phone: [facility] 01-03-2025 13:22-0400 Body weight 83.46 kg Hank Boss MD Work Phone: [facility] 01-03-2025 13:22-0400 Diastolic blood pressure 60 mm[Hg] Hank Boss MD Work Phone: [facility] 01-03-2025 13:22-0400 Systolic blood pressure 100 mm[Hg] Hank Boss MD Work Phone: [facility] 12-20-2024 13:33-0400 Body mass index (BMI) [Ratio] 30.09 kg/m2 Kayla Robb MD Work Phone: [facility] 12-20-2024 13:33-0400 Body weight 82.01 kg Kayla Robb MD Work Phone: [facility] 12-20-2024 13:33-0400 Diastolic blood pressure 76 mm[Hg] Kayla Robb MD Work Phone: [facility] 12-20-2024 13:33-0400 Systolic blood pressure 110 mm[Hg] Kayla Robb MD Work Phone: [facility] 12-06-2024 11:37-0400 Body mass index (BMI) [Ratio] 28.62 kg/m2 Kayla Robb MD Work Phone: [facility] 12-06-2024 11:37-0400 Body weight 78.02 kg Kayla Robb MD Work Phone: [facility] 12-06-2024 11:37-0400 Diastolic blood pressure 74 mm[Hg] Kayla Robb MD Work Phone: [facility] 12-06-2024 11:37-0400 Systolic blood pressure 116 mm[Hg] Kayla Robb MD Work Phone: [facility] 11-22-2024 13:50-0400 Body mass index (BMI) [Ratio] 28.54 kg/m2 Lachelle Hickman MD Work Phone: [facility] 11-22-2024 13:50-0400 Body weight 77.8 kg Lachelle Hickman MD Work Phone: [facility] 11-22-2024 13:50-0400 Diastolic blood pressure 62 mm[Hg] Lachelle Hickman MD Work Phone: [facility] 11-22-2024 13:50-0400 Heart rate 90 /min Lachelle Hickman MD Work Phone: [facility] 11-22-2024 13:50-0400 SaO2% (BldA) [Mass fraction] 99 % Lachelle Hickman MD Work Phone: [facility] 11-22-2024 13:50-0400 Systolic blood pressure 117 mm[Hg] Lachelle Hickman MD Work Phone: [facility] 11-08-2024 14:31-0500 Body mass index (BMI) [Ratio] 29.29 kg/m2 Kayla Robb MD Work Phone: [facility] 11-08-2024 14:31-0500 Body weight 79.83 kg Kayla Robb MD Work Phone: [facility] 11-08-2024 14:31-0500 Diastolic blood pressure 64 mm[Hg] Kayla Robb MD Work Phone: [facility] 11-08-2024 14:31-0500 Systolic blood pressure 112 mm[Hg] Kayla Robb MD Work Phone: [facility] 10-11-2024 10:23-0500 Body mass index (BMI) [Ratio] 28.46 kg/m2 Lorena Sharma APRN.CNM Work Phone: [facility] 10-11-2024 10:23-0500 Body weight 77.56 kg Lorena Sharma APRN.CNM Work Phone: [facility] 10-11-2024 10:23-0500 Diastolic blood pressure 68 mm[Hg] Lorena Sharma APRN.CNM Work Phone: [facility] 10-11-2024 10:23-0500 Systolic blood pressure 100 mm[Hg] Lorena Sharma APRN.CNM Work Phone: [facility] 10-03-2024 11:16-0500 Body mass index (BMI) [Ratio] 28.84 kg/m2 Francisco Clutter PA-C Work Phone: [facility] 10-03-2024 11:16-0500 Body temperature 97.9 [degF] Francisco Clutter PA-C Work Phone: [facility] 10-03-2024 11:16-0500 Body weight 78.6 kg Francisco Clutter PA-C Work Phone: [facility] 10-03-2024 11:16-0500 Diastolic blood pressure 72 mm[Hg] Francisco Clutter PA-C Work Phone: [facility] 10-03-2024 11:16-0500 Heart rate 98 /min Francisco Clutter PA-C Work Phone: [facility] 10-03-2024 11:16-0500 Respiratory rate 18 /min Francisco Clutter PA-C Work Phone: [facility] 10-03-2024 11:16-0500 SaO2% (BldA) [Mass fraction] 99 % Francisco Clutter PA-C Work Phone: [facility] 10-03-2024 11:16-0500 Systolic blood pressure 110 mm[Hg] Francisco Woodsutter PA-C Work Phone: [facility] 09-13-2024 13:33-0500 Body mass index (BMI) [Ratio] 28.46 kg/m2 Kayla Robb MD Work Phone: [facility] 09-13-2024 13:33-0500 Body weight 77.56 kg Kayla Robb MD Work Phone: [facility] 09-13-2024 13:33-0500 Diastolic blood pressure 76 mm[Hg] Kayla oRbb MD Work Phone: [facility] 09-13-2024 13:33-0500 Systolic blood pressure 114 mm[Hg] Kayla Robb MD Work Phone: [facility] 08-02-2024 10:52-0500 Body height 165.1 cm Rylee Scott SANDSTONE SPLITTER.INTEGRITY DIRECTOR Work Phone: [facility] 08-02-2024 10:52-0500 Body mass index (BMI) [Ratio] 28.12 kg/m2 Rylee Scott SANDSTONE SPLITTER.INTEGRITY DIRECTOR Work Phone: [facility] 08-02-2024 10:52-0500 Body weight 76.66 kg Rylee Haury SANDSTONE SPLITTER.INTEGRITY DIRECTOR Work Phone: [facility] 08-02-2024 10:52-0500 Diastolic blood pressure 64 mm[Hg] Rylee Haury SANDSTONE SPLITTER.INTEGRITY DIRECTOR Work Phone: [facility] 08-02-2024 10:52-0500 Systolic blood pressure 110 mm[Hg] Rylee Haury SANDSTONE SPLITTER.INTEGRITY DIRECTOR Work Phone: [facility] 07-05-2024 09:50-0400 Body mass index (BMI) [Ratio] 29.07 kg/m2 Gricelda Moomaw SANDSTONE SPLITTER.INTEGRITY DIRECTOR Work Phone: [facility] 07-05-2024 09:50-0400 Body temperature 97.2 [degF] Gricelda Moomaw SANDSTONE SPLITTER.INTEGRITY DIRECTOR Work Phone: [facility] 07-05-2024 09:50-0400 Body weight 78.2 kg Gricelda Moomaw SANDSTONE SPLITTER.INTEGRITY DIRECTOR Work Phone: [facility] 07-05-2024 09:50-0400 Diastolic blood pressure 80 mm[Hg] Gricelda Moomaw SANDSTONE SPLITTER.INTEGRITY DIRECTOR Work Phone: [facility] 07-05-2024 09:50-0400 Heart rate 77 /min Gricelda Moomaw SANDSTONE SPLITTER.INTEGRITY DIRECTOR Work Phone: [facility] 07-05-2024 09:50-0400 Respiratory rate 18 /min Gricelda Moomaw SANDSTONE SPLITTER.INTEGRITY DIRECTOR Work Phone: [facility] 07-05-2024 09:50-0400 SaO2% (BldA) [Mass fraction] 99 % Gricelda Moomaw SANDSTONE SPLITTER.INTEGRITY DIRECTOR Work Phone: [facility] 07-05-2024 09:50-0400 Systolic blood pressure 119 mm[Hg] Gricelda Moomaw SANDSTONE SPLITTER.INTEGRITY DIRECTOR Work Phone: [facility] 10-14-2023 08:30-0500 Body temperature 97.11 [degF] Lornea Singh SANDSTONE SPLITTER.INTEGRITY DIRECTOR Work Phone: [facility] 10-14-2023 08:30-0500 Body weight 91.17 kg Lorena Singh SANDSTONE SPLITTER.INTEGRITY DIRECTOR Work Phone: [facility] 10-14-2023 08:30-0500 Diastolic blood pressure 75 mm[Hg] Lorena Singh SANDSTONE SPLITTER.INTEGRITY DIRECTOR Work Phone: [facility] 10-14-2023 08:30-0500 Heart rate 100 /min Lorena Singh SANDSTONE SPLITTER.INTEGRITY DIRECTOR Work Phone: [facility] 10-14-2023 08:30-0500 Respiratory rate 20 /min Lorena Singh SANDSTONE SPLITTER.INTEGRITY DIRECTOR Work Phone: [facility] 10-14-2023 08:30-0500 SaO2% (BldA) [Mass fraction] 98 % Lorena Singh SANDSTONE SPLITTER.INTEGRITY DIRECTOR Work Phone: [facility] 10-14-2023 08:30-0500 Systolic blood pressure 106 mm[Hg] Lorena Singh SANDSTONE SPLITTER.INTEGRITY DIRECTOR Work Phone: [facility] 08-04-2023 11:30-0500 Body temperature 97 [degF] Krislyn Aberegg PA Work Phone: [facility] 08-04-2023 11:30-0500 Body weight 94.8 kg Krislyn Aberegg PA Work Phone: [facility] 08-04-2023 11:30-0500 Diastolic blood pressure 62 mm[Hg] Krislyn Aberegg PA Work Phone: [facility] 08-04-2023 11:30-0500 Heart rate 89 /min Krislyn Aberegg PA Work Phone: [facility] 08-04-2023 11:30-0500 Respiratory rate 16 /min Krislyn Aberegg PA Work Phone: [facility] 08-04-2023 11:30-0500 SaO2% (BldA) [Mass fraction] 98 % Krislyn Aberegg PA Work Phone: [facility] 08-04-2023 11:30-0500 Systolic blood pressure 116 mm[Hg] Krislyn Aberegg PA Work Phone: [facility] 09-09-2022 10:09-0500 Body height 162.6 cm Kayla Robb MD Work Phone: [facility] 09-09-2022 10:09-0500 Body weight 77.11 kg Kayla Robb MD Work Phone: [facility] 09-09-2022 10:09-0500 Diastolic blood pressure 64 mm[Hg] Kayla Robb MD Work Phone: [facility] 09-09-2022 10:09-0500 Systolic blood pressure 102 mm[Hg] Kayla Robb MD Work Phone: [facility] 08-12-2022 09:22-0500 Body weight 78.02 kg Kayla Robb MD Work Phone: [facility] 08-12-2022 09:22-0500 Diastolic blood pressure 74 mm[Hg] Kayla Robb MD Work Phone: [facility] 08-12-2022 09:22-0500 Systolic blood pressure 116 mm[Hg] Kayla Robb MD Work Phone: [facility] 08-07-2022 13:39-0500 Body temperature 96 [degF] [facility] Work Phone: 08-07-2022 13:39-0500 Diastolic blood pressure 64 mm[Hg] [facility] Work Phone: 08-07-2022 13:39-0500 Heart rate 91 /min [facility] Work Phone: 08-07-2022 13:39-0500 Respiratory rate 18 /min [facility] Work Phone: 08-07-2022 13:39-0500 Systolic blood pressure 112 mm[Hg] [facility] Work Phone: 08-07-2022 02:17-0500 SaO2% (BldA) [Mass fraction] 94 % [facility] Work Phone: 08-05-2022 07:16-0500 Body height 160.02 cm [facility] Work Phone: 08-05-2022 07:16-0500 Body mass index (BMI) [Ratio] 32.4 kg/m2 [facility] Work Phone: 08-05-2022 07:16-0500 Body weight 83 kg [facility] Work Phone: 07-29-2022 15:47-0500 Body weight 80.74 kg Kayla Robb MD Work Phone: [facility] 07-29-2022 15:47-0500 Diastolic blood pressure 70 mm[Hg] Kayla Robb MD Work Phone: [facility] 07-29-2022 15:47-0500 Systolic blood pressure 120 mm[Hg] Kayla Robb MD Work Phone: [facility] 07-21-2022 09:03-0500 Body weight 82.1 kg Alfredo Benitez MD Work Phone: [facility] 07-21-2022 09:03-0500 Diastolic blood pressure 68 mm[Hg] Alfredo Benitez MD Work Phone: [facility] 07-21-2022 09:03-0500 Systolic blood pressure 104 mm[Hg] Alfredo Benitez MD Work Phone: [facility] 07-14-2022 07:53-0500 Body weight 80.83 kg Ob Ultrasound Work Phone: [facility] 07-14-2022 07:53-0500 Diastolic blood pressure 62 mm[Hg] Ob Ultrasound Work Phone: [facility] 07-14-2022 07:53-0500 Systolic blood pressure 102 mm[Hg] Ob Ultrasound Work Phone: [facility] 07-07-2022 09:52-0400 Body weight 79.38 kg Kayla Robb MD Work Phone: [facility] 07-07-2022 09:52-0400 Diastolic blood pressure 60 mm[Hg] Kayla Robb MD Work Phone: [facility] 07-07-2022 09:52-0400 Systolic blood pressure 102 mm[Hg] Kayla Robb MD Work Phone: [facility] 06-27-2022 16:10-0400 Body temperature 97.9 [degF] No Primary Care Physician [facility] Work Phone: 06-27-2022 16:10-0400 Diastolic blood pressure 59 mm[Hg] No Primary Care Physician [facility] Work Phone: 06-27-2022 16:10-0400 Heart rate 76 /min No Primary Care Physician [facility] Work Phone: 06-27-2022 16:10-0400 Systolic blood pressure 112 mm[Hg] No Primary Care Physician [facility] Work Phone: 06-27-2022 16:00-0400 Body height 160.02 cm No Primary Care Physician [facility] Work Phone: 06-27-2022 16:00-0400 Body mass index (BMI) [Ratio] 30.9 kg/m2 No Primary Care Physician [facility] Work Phone: 06-27-2022 16:00-0400 Body weight 79.1 kg No Primary Care Physician [facility] Work Phone: 06-26-2022 13:43-0400 Body weight 79.65 kg Kayla Robb MD Work Phone: [facility] 06-26-2022 13:43-0400 Diastolic blood pressure 68 mm[Hg] Kayla Robb MD Work Phone: [facility] 06-26-2022 13:43-0400 Systolic blood pressure 106 mm[Hg] Kayla Robb MD Work Phone: [facility] 06-10-2022 15:55-0400 Body weight 80.29 kg Kayla Robb MD Work Phone: [facility] 06-10-2022 15:55-0400 Diastolic blood pressure 58 mm[Hg] Kayla Robb MD Work Phone: [facility] 06-10-2022 15:55-0400 Systolic blood pressure 104 mm[Hg] Kayla Robb MD Work Phone: [facility] 05-25-2022 08:55-0400 Body weight 79.83 kg Kayla Robb MD Work Phone: [facility] 05-25-2022 08:55-0400 Diastolic blood pressure 58 mm[Hg] Kayla Robb MD Work Phone: [facility] 05-25-2022 08:55-0400 Systolic blood pressure 98 mm[Hg] Kayla Robb MD Work Phone: [facility] 05-08-2022 00:33-0400 Heart rate 76 /min No Primary Care Physician [facility] Work Phone: 05-08-2022 00:33-0400 Respiratory rate 16 /min No Primary Care Physician [facility] Work Phone: 05-08-2022 00:33-0400 SaO2% (BldA) [Mass fraction] 97 % No Primary Care Physician [facility] Work Phone: 05-07-2022 23:03-0400 Body height 162.56 cm No Primary Care Physician [facility] Work Phone: 05-07-2022 23:03-0400 Body mass index (BMI) [Ratio] 31.1 kg/m2 No Primary Care Physician [facility] Work Phone: 05-07-2022 23:03-0400 Body temperature 98.4 [degF] No Primary Care Physician [facility] Work Phone: 05-07-2022 23:03-0400 Body weight 82.4 kg No Primary Care Physician [facility] Work Phone: 05-07-2022 23:03-0400 Diastolic blood pressure 80 mm[Hg] No Primary Care Physician [facility] Work Phone: 05-07-2022 23:03-0400 Systolic blood pressure 118 mm[Hg] No Primary Care Physician [facility] Work Phone: 04-24-2022 08:39-0400 Body weight 76.2 kg Kayla Robb MD Work Phone: [facility] 04-24-2022 08:39-0400 Diastolic blood pressure 60 mm[Hg] Kayla Robb MD Work Phone: [facility] 04-24-2022 08:39-0400 Systolic blood pressure 104 mm[Hg] Kayla Robb MD Work Phone: [facility] 03-17-2022 10:13-0400 Body weight 69.4 kg Kayla Robb MD Work Phone: [facility] 03-17-2022 10:13-0400 Diastolic blood pressure 68 mm[Hg] Kayla Robb MD Work Phone: [facility] 03-17-2022 10:13-0400 Systolic blood pressure 110 mm[Hg] Kayla Robb MD Work Phone: [facility] 03-12-2022 12:09-0400 Body temperature 98.4 [degF] No Primary Care Physician [facility] Work Phone: 03-12-2022 12:09-0400 Diastolic blood pressure 64 mm[Hg] No Primary Care Physician [facility] Work Phone: 03-12-2022 12:09-0400 Heart rate 89 /min No Primary Care Physician [facility] Work Phone: 03-12-2022 12:09-0400 Respiratory rate 16 /min No Primary Care Physician [facility] Work Phone: 03-12-2022 12:09-0400 SaO2% (BldA) [Mass fraction] 99 % No Primary Care Physician [facility] Work Phone: 03-12-2022 12:09-0400 Systolic blood pressure 130 mm[Hg] No Primary Care Physician [facility] Work Phone: 02-27-2022 13:36-0400 Body temperature 97.8 [degF] No Primary Care Physician [facility] Work Phone: 02-27-2022 13:36-0400 Diastolic blood pressure 78 mm[Hg] No Primary Care Physician [facility] Work Phone: 02-27-2022 13:36-0400 Heart rate 78 /min No Primary Care Physician [facility] Work Phone: 02-27-2022 13:36-0400 Respiratory rate 14 /min No Primary Care Physician [facility] Work Phone: 02-27-2022 13:36-0400 SaO2% (BldA) [Mass fraction] 99 % No Primary Care Physician [facility] Work Phone: 02-27-2022 13:36-0400 Systolic blood pressure 132 mm[Hg] No Primary Care Physician [facility] Work Phone: 02-27-2022 12:27-0400 Body mass index (BMI) [Ratio] 26.9 kg/m2 No Primary Care Physician [facility] Work Phone: 02-27-2022 12:27-0400 Body weight 68.8 kg No Primary Care Physician [facility] Work Phone: 02-17-2022 11:15-0400 Body weight 66.22 kg Kayla Robb MD Work Phone: [facility] 02-17-2022 11:15-0400 Diastolic blood pressure 58 mm[Hg] Kayla Robb MD Work Phone: [facility] 02-17-2022 11:15-0400 Systolic blood pressure 98 mm[Hg] Kayla Robb MD Work Phone: [facility] 01-26-2022 23:45-0400 Diastolic blood pressure 88 mm[Hg] [facility] Work Phone: 01-26-2022 23:45-0400 Heart rate 80 /min [facility] Work Phone: 01-26-2022 23:45-0400 Respiratory rate 16 /min [facility] Work Phone: 01-26-2022 23:45-0400 SaO2% (BldA) [Mass fraction] 98 % [facility] Work Phone: 01-26-2022 23:45-0400 Systolic blood pressure 110 mm[Hg] [facility] Work Phone: 01-26-2022 23:05-0400 Body height 160.02 cm [facility] Work Phone: 01-26-2022 23:05-0400 Body mass index (BMI) [Ratio] 24.7 kg/m2 [facility] Work Phone: 01-26-2022 23:05-0400 Body temperature 98 [degF] [facility] Work Phone: 01-26-2022 23:05-0400 Body weight 63.5 kg [facility] Work Phone: 01-20-2022 13:49-0400 Body weight 62.14 kg Alfredo Benitez MD Work Phone: [facility] 01-20-2022 13:49-0400 Diastolic blood pressure 52 mm[Hg] Alfredo Benitez MD Work Phone: [facility] 01-20-2022 13:49-0400 Systolic blood pressure 98 mm[Hg] Alfredo Benitez MD Work Phone: [facility] 01-02-2022 10:29-0400 Body height 162.6 cm Kayla Robb MD Work Phone: [facility] 01-02-2022 10:29-0400 Body weight 63.05 kg Kayla Robb MD Work Phone: [facility] 01-02-2022 10:29-0400 Diastolic blood pressure 62 mm[Hg] Kayla Robb MD Work Phone: [facility] 01-02-2022 10:29-0400 Systolic blood pressure 96 mm[Hg] Kayla Robb MD Work Phone: [facility] 12-23-2021 22:45-0400 Diastolic blood pressure 74 mm[Hg] [facility] Work Phone: 12-23-2021 22:45-0400 Heart rate 97 /min [facility] Work Phone: 12-23-2021 22:45-0400 Respiratory rate 14 /min [facility] Work Phone: 12-23-2021 22:45-0400 SaO2% (BldA) [Mass fraction] 97 % [facility] Work Phone: 12-23-2021 22:45-0400 Systolic blood pressure 109 mm[Hg] [facility] Work Phone: 12-23-2021 20:27-0400 Body height 162.56 cm [facility] Work Phone: 12-23-2021 20:27-0400 Body mass index (BMI) [Ratio] 20.5 kg/m2 [facility] Work Phone: 12-23-2021 20:27-0400 Body temperature 97.1 [degF] [facility] Work Phone: 12-23-2021 20:27-0400 Body weight 54.43 kg [facility] Work Phone: Encounters Encounter Date Encounter Type [...] of (HCC) Start: 03-07-2025 End: 03-07-20[facility] Start: 03-01-2025 End: 03-01-2025 Patient encounter procedure Kayla Robb MD Work Phone: OB/Gynecology Comment on above: Supervision of high risk due to social problems, third trimester (HCC) (Primary Dx); 36 weeks gestation of (HCC); History of herpes genitalis Start: 03-01-2025 End: 03-01-2025 [facility] Start: 02-14-2025 End: 02-14-2025 Office outpatient visit 15 minutes Lachelle Kramer MD Work Phone: OB/Gynecology Comment on above: Supervision of high risk due to social problems, third trimester (HCC) (Primary Dx); 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, single or unspecified fetus (HCC); 34 weeks gestation of (HCC) Start: 02-14-2025 End: 02-14-2025 Patient encounter procedure Whi Tech 1 Mechanical Engineering Technician [facility] Maternal Medicine Comment on above: Anti-E isoimmunizati on affecting in second trimester, single or unspecified fetus (HCC) (Primary Dx); Maternal care for isoimmunization, second trimester, single gestation (HCC); History of hepatitis C; Tobacco smoking complicating in first trimester (HCC) Start: 02-14-2025 End: 02-14-2025 [facility] Start: 01-31-2025 End: 01-31-2025 Patient encounter procedure Kayla Robb MD Work Phone: OB/Gynecology Comment on above: Supervision of high risk due to social problems, third trimester (HCC) (Primary Dx); 32 weeks gestation of (HCC); 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, single or unspecified fetus (HCC) Start: 01-31-2025 End: 01-31-2025 [facility] Start: 01-17-2025 End: 01-17-2025 Patient encounter procedure Kayla Robb MD Work Phone: OB/Gynecology Comment on above: Supervision of high risk due to social problems, third trimester (HCC) (Primary Dx); 30 weeks gestation of (HCC) Encounter for ultras ound to check growth (HCC) (Primary Dx); Maternal care for isoimmunization, second trimester, single gestation (HCC); 30 weeks gestation of (HCC) Start: 01-17-2025 End: 01-17-2025 ambulatory [facility] Facility:[facility] Start: 01-08-2025 End: 03-10-2025 Follow-up encounter Rylee Scott APRN.CNP Work Phone: OB/Gynecology Start: 01-04-2025 End: 01-04-2025 Telephone encounter Nurse Mechanical Engineering Technician Aditya Chung Work Phone: Obstetrics/Gynecology Comment on above: PRAF Start: 01-03-2025 End: 01-03-2025 Patient encounter procedure Hank Boss MD Work Phone: OB/Gynecology Comment on above: Supervision of high risk due to social problems, third trimester (HCC) (Primary Dx); 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, single or unspecified fetus (HCC); 28 weeks gestation of (HCC); Need for vaccination Start: 01-03-2025 End: 01-03-2025 [facility] Start: 01-01-2025 End: 01-01-2025 Telephone encounter Belkis [...] Start: 12-20-2024 End: 12-20-2024 ambulatory TERESO SHAIKH Facility:[facility] Start: 12-07-2024 End: 12-07-2024 Follow-up encounter Roxanne Seema [facility] Work Phone: Genetic [facility] Start: 12-07-2024 End: 12-07-2024 Telephone encounter Lachelle Hickman MD Work Phone: Maternal Medicine [facility] Start: 12-06-2024 End: 12-06-2024 ambulatory Lachelle Hickman MD Work Phone: Maternal Medicine Comment on above: Anti-E isoimmunizati on affecting in second trimester, single or unspecified fetus (HCC) (Primary Dx) Start: 12-06-2024 End: 12-06-2024 Telemedicine consultation with patient Lachelle Hickman MD Work Phone: Maternal Medicine Start: 12-06-2024 End: 12-06-2024 ambulatory TERESO SHAIKH Facility:[facility] Start: 12-06-2024 End: 12-06-2024 Patient encounter procedure [...] Start: 11-29-2024 End: 11-29-2024 ambulatory TERESO SHAIKH Facility:[facility] Start: 11-29-2024 End: 11-29-2024 Patient encounter procedure Roxanne Cordoba [facility] Work Phone: Genetic [facility] Comment on above: 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, second trimester, not applicable or unspecified fetus (Primary Dx); care, subsequent , second trimester Start: 11-27-2024 End: 11-27-2024 ambulatory Roxanne Cordoba [facility] Work Phone: [facility] Comment on above: 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, second trimester, not applicable or unspecified fetus (Primary Dx) Start: 11-27-2024 End: 11-27-2024 Telemedicine consultation with patient Roxanne HOSKINS Work Phone: [facility] Start: 11-23-2024 End: 11-23-2024 Orders Only Lachelle [...] Start: 11-22-2024 End: 11-22-2024 ambulatory TERESO SHAIKH Facility:[facility] Start: 11-22-2024 End: 01-22-2025 Follow-up encounter Kayla Robb MD Work Phone: OB/Gynecology Start: 11-22-2024 End: 11-22-2024 Patient encounter procedure Lachelle Hickman MD Work Phone: Maternal Medicine Comment on above: Maternal care for is oimmunization, second trimester, single gestation; Supervision of high risk in second trimester Start: 11-22-2024 End: 11-22-2024 Telephone encounter Elena Campo Start: 11-09-2024 End: 11-09-2024 Telephone encounter Nurse Mechanical Engineering Technician Aditya Chung Work Phone: Obstetrics/Gynecology Comment on above: PRAF Start: 11-08-2024 End: 11-08-2024 ambulatory TERESO SHAIKH Facility:[facility] Start: 11-08-2024 End: 11-08-2024 Patient encounter procedure Kayla Robb MD Work Phone: OB/Gynecology Comment on above: Supervision of high risk in second trimester (Primary Dx); Anti-E isoimmunization affecting in second trimester, single or unspecified fetus; 20 weeks gestation of Start: 11-08-2024 End: 11-08-2024 ambulatory TERESO SHAIKH Facility:[facility] Start: 11-08-2024 End: 11-08-2024 Patient encounter procedure Whi Tech 1 Mechanical Engineering Technician [facility] Maternal Medicine Comment on [...] Start: 10-30-2024 End: 10-30-2024 ambulatory TERESO SHAIKH Facility:[facility] Start: 10-11-2024 End: 10-11-2024 ambulatory TERESO SHAIKH Facility:[facility] Start: 10-11-2024 End: 10-11-2024 Patient encounter procedure [...] Start: 10-03-2024 End: 10-03-2024 ambulatory JEREMIAS DELON Facility:[facility] Start: 10-03-2024 End: 10-03-2024 Office outpatient visit 25 minutes Francisco Chavez PA-C Work Phone: [facility] [...] Start: 09-13-2024 End: 09-13-2024 ambulatory JEREMIAS DELON Facility:[facility] Start: 09-13-2024 End: 09-13-2024 Patient encounter procedure Whi Tech 1 Mechanical Engineering Technician [facility] Maternal Medicine Comment on [...] above: PRAF Start: 08-02-2024 End: 08-02-2024 ambulatory [facility] Facility:[facility] Start: 08-02-2024 End: 08-02-2024 Patient encounter procedure Rylee Scott APRN.INTEGRITY DIRECTOR Work Phone: OB/Gynecology Comment on above: Encounter [...] 07-25-2024 End: 07-25-2024 Telephone encounter Rylee Scott APRN.INTEGRITY DIRECTOR Work Phone: OB/Gynecology Comment on above: Appointment Start: 07-05-2024 End: 07-05-2024 ambulatory TERESO SHAIKH Facility:[facility] Start: 07-05-2024 End: 07-05-2024 Patient encounter procedure Gricelda Frostella MICHELE.INTEGRITY DIRECTOR Work Phone: [facility] Comment on above: Acute cough (Primary Dx) Start: 03-15-2024 Telephone encounter Tereso irby MD Work Phone: Internal Medicine [facility] Comment on above: Needs a letter for n ew SS card Start: 10-14-2023 End: 10-14-2023 Patient encounter procedure Lorena Singh APRN.INTEGRITY DIRECTOR Work Phone: [facility] Comment on above: Upper respiratory tr act infection, unspecified type (Primary Dx) Start: 08-04-2023 End: 08-04-2023 Patient encounter procedure Ilya PARIS Work Phone: [facility] Comment on above: Sinobronchitis (Prim pamela Dx); URI, acute Start: 03-22-2023 End: 03-22-2023 ambulatory No Primary Care Physician Facility:[facility] Start: 01-20-2023 ambulatory Alexandra North RN NURSE O N CALL Comment on above: Information Start: 01-07-2023 ambulatory Kayla chapin MD Work Phone: OB/Gynecology Comment on above: control medica tion Start: 01-07-2023 E-mail encounter leonor m caregiver Kayla Robb MD Work Phone: [facility] Start: 01-07-2023 Telephone encounter Kayla Robb MD Work Phone: OB/Gynecology Comment on above: Medication Question (/) Start: 01-05-2023 Refill Abimb[facility] Valenzuela [facility]-C [facility] Comment on above: Refill Request Start: 12-23-2022 Telephone encounter Abimbola white PA-C [facility] Comment on above: Medication Update Start: 12-01-2022 Refill Kayla chapin MD Work Phone: OB/Gynecology Comment on above: Refill Request Start: 11-27-2022 End: 11-27-2022 ambulatory Hepatology A5 Work Phone: Gastroenterology Start: 11-27-2022 End: 11-27-2022 Patient encounter procedure Hepatology Procedures A5 Work Phone: [facility] Start: 11-13-2022 Orders Only Abimbola Randhawaka PA-C Work Phone: Gastroenterology Comment on above: Chronic hepatitis C without hepatic coma (HCC) (Primary Dx) Start: 10-27-2022 End: 10-27-2022 Subsequent hospital visit by physician [facility] Work Phone: Radiology Comment [...] management of inpatient No Primary Care Physician Facility:[facility] Start: 08-05-2022 End: 08-07-2022 Evaluation and management of inpatient [facility] [place] Start: 07-29-2022 End: 07-29-2022 Patient encounter procedure [...] End: 06-27-2022 ambulatory No Primary Care Physician Facility:[facility] Start: 06-27-2022 End: 06-27-2022 ambulatory No Primary Care Physician [facility] Work Phone: Start: 06-27-2022 End: 06-27-2022 Patient encounter procedure No Primary Care Physician [facility] [place] Outpatients Start: 06-26-2022 End: 06-26-2022 Patient encounter [...] department patient visit No Primary Care Physician Facility:[facility] Start: 05-07-2022 End: 05-08-2022 Emergency department patient visit No Primary Care Physician [facility]Emer[facility] Start: 04-24-2022 End: 04-24-2022 Patient encounter [...] Patient encounter procedure No Primary Care Physician [facility] Start: 02-27-2022 Telephone encounter Nelda ignacio APRN.CNM Work Phone: OB/Gynecology Comment on above: Patient Question Start: 02-27-2022 End: 02-27-2022 Emergency department patient visit No Primary Care Physician [facility]Emer[facility] Start: 02-19-2022 Telephone encounter Stephani rowley [...] weeks gestation of Start: 02-10-2022 Telephone encounter Enrollment Services Dean RN Obstetrics/Gynecology Comment on above: PRAF FORM Start: 01-26-2022 End: 01-26-2022 Emergency department patient visit [facility] Start: 01-22-2022 Telephone encounter Alfredo gilliland [...] 12-23-2021 End: 12-23-2021 Emergency department patient visit [facility]gency [facility] Start: 12-23-2021 Telephone encounter Kayla Robb MD Work Phone: OB/Gynecology Comment on above: Future Appointment Start: 07-13-2017 Evaluation and management of inpatient UNKNOWN PROVIDER [facility] Start: 07-13-2017 End: 07-13-2017 Emergency department patient visit GIL HAMMOND Facility:B Procedures Date Procedure Procedure Detail Performing Clinician Start: 03-07-2025 Urnls dip stick/tabl et rgnt non-auto w/o micrscp Kayla Robb MD Work Phone: Start: 03-01-2025 Urnls dip stick/tabl et rgnt non-auto w/o micrscp Kayla Robb MD Work Phone: Start: 02-14-2025 Urnls dip stick/tabl et rgnt non-auto w/o micrscp Lachelle Kramer MD Work Phone: Start: 02-14-2025 Us [...] Speci men Type: BLOOD SPECIMEN Ordering Facility: [facility] Address: [address] [place] [address] Performed By: #### L [id number], BBABINT #### [facility] CLIA [id number] [place] #### ASCR, %JETHRO #### [facility] CLIA [id number] [place] Start: 11-22-2024 Us preg uterus after 1st trimest 1/ gestation Kayla Robb MD Work Phone: Start: 11-08-2024 Us preg uterus after 1st trimest 09/06 gestation Rylee Scott APRN.INTEGRITY DIRECTOR Work Phone: Start: 10-30-2024 Antibody screen TERESO SHAIKH Comment on above: Order Comment: Speci men Type: BLOOD SPECIMENOrdering Facility: [facility] Address: [address] [place] [address] Performed By: #### A SCR, %JETHRO, DAGT, ABORH, ABT, BBABINT ####[facility] BANKCLIA [id number] [address] Start: 09-13-2024 Antibody screen TERESO SHAIKH Comment on above: Order Comment: Speci men Type: BLOOD SPECIMENOrdering Facility: [facility] Address: [address] [place] [address] Performed By: #### T SPN, %JETHRO, BBABINT, ABT ####[facility] BLO[facility] BANKCLIA [id number] [address] [place] Start: 09-13-2024 Us nuchal cooley slucency 1st gestation Rylee Scott APRN.INTEGRITY DIRECTOR Work Phone: Start: 08-02-2024 Us uterus l imited 1/> fetuses Rylee Scott APRN.INTEGRITY DIRECTOR Work Phone: Start: 10-14-2023 STREP A MOLECULAR (POC) Rodolfo Solis APRN.INTEGRITY DIRECTOR Work Phone: Start: 11-27-2022 Liver elastography w [...] Start: 05-07-2022 Plain chest X-ray No Pr imsnowshoe Care Physician Start: 04-24-2022 URINE OB DIP [...] DTaP,Tdap,Td Vaccine (4 - Td or Tdap) [facility] Start: 05-25-2032 Urine microalbumin profile [facility] Start: 09-13-2025 Covid-19 Vaccine ( season) Covid-19 Vaccine () [facility] Comment on above: Postponed from 05/07 (Declined at this time) Start: 05-07-2025 Influenza vaccination [facility] Start: 03-16-2025 End: 03-16-2025 Patient encounter procedure 03/16/2025 10:20 AM EDT Routine Office Visit OB/Gynecology [address] [place], [place] [id number] Alfredo Benitez MD [address] [place] [id number] OB OB/Gynecology Comment on above: OB Start: 03-07-2025 End: 03-07-2025 Patient encounter procedure 03/07/2025 11:00 AM EDT Routine Office Visit OB/Gynecology [address] [place] [id number] Kayla Robb MD [address] [place] [id number] OB OB/Gynecology Comment on above: OB Start: 03-05-2025 Influenza vaccination Influenza Vacc ine (#1) [facility] Comment on above: Postponed from 05/07 (Declined at this time) Start: 02-28-2025 End: 02-28-2025 Patient encounter procedure 02/28/2025 10:40 AM EDT Routine Office Visit OB/Gynecology [address] [place] [address] Kayla Robb MD [address] [place] [address] OB OB/Gynecology Comment on above: OB Start: 02-14-2025 End: 02-14-2025 Patient encounter procedure Maternal Medicine Comment on above: Growth OB/ Growth Start: 01-31-2025 End: 01-31-2025 Patient encounter procedure 01/31/2025 11:20 AM EDT Routine Office Visit OB/Gynecology [address] [place] [address] Kayla Robb MD [address] [place] [address] OB OB/Gynecology Comment on above: OB Start: 01-17-2025 End: 01-17-2025 Patient encounter procedure Maternal Medicine Comment on above: Growth OB Growth/MCA dopplers Start: 01-03-2025 End: 01-03-2025 Patient encounter procedure Maternal Medicine Comment on above: Growth OB Growth/MCA dopplers Start: 01-03-2025 End: 01-03-2025 ambulatory 01/03/2025 1:15 PM EDT Results Only Laila Blakely [facility] Laboratory [address] [place] [address] Glucose test and LABS [facility] Comment on above: Glucose test and LAB S Start: 01-02-2025 PAP TESTING PAP TESTING [facility] Start: 01-02-2025 Screening for malign ant neoplasm of cervix [facility] Start: 12-20-2024 End: 12-20-2024 ambulatory 12/20/2024 1:45 PM EDT Results Only Laila [facility] Draw Station [address] [place] [address] [facility] Draw Station Start: 12-20-2024 End: 12-20-2024 Patient encounter procedure Maternal Medicine Comment on above: Growth OB Growth/MCA dopplers Start: 12-06-2024 End: 12-06-2024 ambulatory 12/06/2024 3:45 PM EDT [facility] Maternal Medicine [address] [place] [address] [place] [address] [place], [place] [address] Virtual est mfm Maternal Medicine Comment on above: Virtual est mfm Start: 12-06-2024 End: 03-07-2025 ANEMIA REFLEX PANEL ANEMIA REFLEX PANEL Lab Routine Supervision of high risk in second trimester Anti-E isoimmunization affecting in second trimester, single or unspecified fetus Tobacco smoking complicating in second trimester 24 weeks gestation of Expected: 12/06/2024, Expires: 03/07/2025 [facility] Comment on above: Expected: 12/06/2024 , Expires: 03/07/2025 Start: 12-06-2024 End: 12-06-2025 GESTATIONAL GLUCOSE SCREEN, 1-HOUR, 50 GRAM, NON-FASTING GESTATIONAL GLUCOSE SCREEN, 1-HOUR, 50 GRAM, NON-FASTING Lab Routine Supervision of high risk in second trimester Anti-E isoimmunization affecting in second trimester, single or unspecified fetus Tobacco smoking complicating in second trimester 24 weeks gestation of Expected: 12/06/2024, Expires: 12/06/2025 [facility] Work Phone: Comment on above: Expected: 12/06/2024 , Expires: 12/06/2025 Start: 12-06-2024 End: 12-06-2025 SYPHILIS TREPONEMAL W/REFLEX SYPHILIS TREPONEMAL W/REFLEX Lab Routine Supervision of high risk in second trimester Anti-E isoimmunization affecting in second trimester, single or unspecified fetus Tobacco smoking complicating in second trimester 24 weeks gestation of Expected: 12/06/2024, Expires: 12/06/2025 [facility] Comment on above: Expected: 12/06/2024 , Expires: 12/06/2025 Start: 12-06-2024 End: 12-06-2024 Patient encounter procedure Maternal Medicine Comment on above: Growth OB Growth/MCA dopplers Start: 11-29-2024 End: 11-29-2024 Patient encounter procedure 11/29/2024 12:00 PM EDT Office Visit [facility] [address] [address] [place] [address] Roaxnne Cordoba, [facility] [address] [place] [address] [facility] Comment on above: consult Start: 11-27-2024 End: 11-27-2024 ambulatory 11/27/2024 9:[facility] AM [facility] [place] [facility] [place] [address] [place] [address] Roxanne Cordoba, [facility] [address] [place] [address] The antibody that s affecting my . GMINE CALL BOX WIRER [facility] RAYA Comment on above: The antibody [...] weeks gestation of Expected: 11/08/2024, Expires: 02/07/2025 [facility] Work Phone: Comment on above: Expected: 11/08/2024 , Expires: 02/07/2025 Start: 11-08-2024 End: 11-08-2024 Patient encounter procedure 11/08/2024 1:30 PM EST Routine Office Visit Maternal Medicine [address] [place] [address] Anatomy Scan Maternal Medicine Comment on above: Anatomy Scan Start: 10-11-2024 End: 01-10-2025 Antibody screen ANTIBODY SCREEN Blood Bank Routine 16 weeks gestation of Anti-E isoimmunization affecting in second trimester, single or unspecified fetus Expected: 10/11/2024, Expires: 01/10/2025 [facility] Work Phone: Comment on above: Expected: 10/11/2024 , Expires: 01/10/2025 Start: 10-11-2024 End: 10-11-2024 Patient encounter procedure 10/11/2024 10:30 AM EST Routine Office Visit OB/Gynecology [address] [place], [place] [phone] Lorena Sharma APRN.CNM [address] [place] [address] OB Routine OB/Gynecology Comment on above: OB Routine Start: 09-13-2024 End: 09-13-2024 Patient encounter procedure Maternal Medicine Comment on above: Nuchal OB Routine Start: 08-02-2024 End: 11-01-2024 ANEMIA REFLEX PANEL ANEMIA REFLEX PANEL Lab Routine Encounter for supervision of high risk in first trimester, antepartum Expected: 08/02/2024, Expires: 11/01/2024 [facility] Work Phone: Comment on above: Expected: 08/02/2024 , Expires: 11/01/2024 Start: 08-02-2024 End: 11-01-2024 Chromosome 21 trisomy [Presence] in Blood or Tissue by Cytogenetics [id number] PLUS Lab Routine Encounter for supervision of high risk in first trimester, antepartum 6 weeks gestation of Expected: 08/02/2024, Expires: 11/01/2024 [facility] Comment on above: Expected: 08/02/2024 , Expires: 11/01/2024 Start: 08-02-2024 End: 11-01-2024 Comprehensive metabolic 2000 panel - Serum or Plasma COMPREHENSIVE METABOLIC PANEL Lab Routine History of hepatitis C Expected: 08/02/2024, Expires: 11/01/2024 [facility] Comment on above: Expected: 08/02/2024 , Expires: 11/01/2024 Start: 08-02-2024 End: 11-01-2024 Hemoglobin A1c in Blood HEMOGLOBIN A1C Lab Routine Encounter for supervision of high risk in first trimester, antepartum Expected: 08/02/2024, Expires: 11/01/2024 [facility] Comment on above: Expected: 08/02/2024 , Expires: 11/01/2024 Start: 08-02-2024 End: 11-01-2024 Hepatitis B virus surface Ag [Presence] in Serum HEPATITIS B SURFACE ANTIGEN Lab Routine Encounter for supervision of high risk in first trimester, antepartum Expected: 08/02/2024, Expires: 11/01/2024 [facility] Comment on above: Expected: 08/02/2024 , Expires: 11/01/2024 Start: 08-02-2024 End: 11-01-2024 Hepatitis C virus Ab [Presence] in Serum HEPATITIS C ANTIBODY IA WITH CONFIRMATION Lab Routine Encounter for supervision of high risk in first trimester, antepartum Expected: 08/02/2024, Expires: 11/01/2024 [facility] Comment on above: Expected: 08/02/2024 , Expires: 11/01/2024 Start: 08-02-2024 End: 11-01-2024 HIV 1+2 Ab [Presence] in Serum or Plasma by Immunoassay HIV 1/2 COMBO WITH REFLEX TO DIFFERENTIATION Lab Routine Encounter for supervision of high risk in first trimester, antepartum Expected: 08/02/2024, Expires: 11/01/2024 [facility] Comment on above: Expected: 08/02/2024 , Expires: 11/01/2024 Start: 08-02-2024 End: 08-02-2025 NUCHAL TRANSLUCENCY WHI NUCHAL TRANSLUCENCY WHI Anc Imaging Routine Encounter for supervision of high risk in first trimester, antepartum Expected: 08/02/2024, Expires: 08/02/2025 [facility] Comment on above: Expected: 08/02/2024 , Expires: 08/02/2025 Start: 08-02-2024 End: 08-02-2025 OBSTETRIC ULTRASOUND WHI OBSTETRIC ULTRASOUND WHI Anc Imaging Routine Encounter for supervision of high risk in first trimester, antepartum Expected: 08/02/2024, Expires: 08/02/2025 [facility] Comment on above: Expected: 08/02/2024 , Expires: 08/02/2025 Start: 08-02-2024 End: 11-01-2024 RUBELLA IGG ANTIBODY RUBELLA IGG ANTIBODY Lab Routine Encounter for supervision of high risk in first trimester, antepartum Expected: 08/02/2024, Expires: 11/01/2024 [facility] Comment on above: Expected: 08/02/2024 , Expires: 11/01/2024 Start: 08-02-2024 End: 11-01-2024 SYPHILIS TREPONEMAL W/REFLEX SYPHILIS TREPONEMAL W/REFLEX Lab Routine Encounter for supervision of high risk in first trimester, antepartum Expected: 08/02/2024, Expires: 11/01/2024 [facility] Comment on above: Expected: 08/02/2024 , Expires: 11/01/2024 Start: 08-02-2024 End: 11-01-2024 TYPE + SCREEN TYPE + SCREEN Blood Bank Routine Encounter for supervision of high risk in first trimester, antepartum Expected: 08/02/2024, Expires: 11/01/2024 [facility] Comment on above: Expected: 08/02/2024 , Expires: 11/01/2024 Start: 08-02-2024 End: 08-02-2024 Patient encounter procedure 08/02/2024 11:00 AM EST Initial Office Visit OB/Gynecology [address] [place], [place] [phone] Rylee Scott, LENY.INTEGRITY DIRECTOR [address] [place] [address] + test care center - 4 weeks on 07/17- per patient OB/Gynecology Comment on above: + test pre gnancy care center - 4 weeks on 07/17- per patient Start: 05-07-2024 Covid-19 Vaccine ( season) Covid-19 Vaccine () [facility] Start: 05-07-2024 Influenza vaccination Influenza Vacc ine (#1) [facility] Start: 04-26-2024 End: 04-26-2024 Patient encounter procedure 04/26/2024 6:20 PM EDT Office Visit [facility] [place] [address] [place] [address] Maria Guadalupe Rivers, SANDSTONE SPLITTER.INTEGRITY DIRECTOR [address] [place] [address] Annual Physical [facility] [place] Comment on above: Annual Physical Start: 02-17-2024 Covid-19 Vaccine (#1) Covid-19 Vacci ne (#1) [facility] Comment on above: Postponed from 10/03 (Declined at this time) Start: 02-17-2024 Hepatitis A Vaccine (1 of 2 - Risk 2-dose series) Hepatitis A Vaccine (1 of 2 - Risk 2-dose series) [facility] Comment on above: Postponed from 04/02 (Declined at this time) Start: 02-17-2024 Pneumococcal vaccination [facility] Comment on above: Postponed from 04/02 (Declined at this time) Start: 10-31-2023 Urine microalbumin profile DTAP,TDAP,TD (2 - Td or Tdap) [facility] Start: 05-07-2023 Covid-19 Vaccine ( season) Covid-19 Vaccine ( season) [facility] Start: 05-07-2023 Influenza vaccination [facility] Start: 09-06-2022 DEPRESSION ASSESSMENT DEPRESSION ASS ESSMENT [facility] Start: 08-07-[address] [facility] Work Phone: Start: 08-05-2022 Administration of medication [facility] Work Phone: Start: 08-05-2022 Application of ice collar, cap or bag [facility] Work Phone: Start: 08-05-2022 Catheterization of vein [facility] Work Phone: Start: 08-05-2022 Introduction of urin pamela catheter [facility] Work Phone: Start: 08-05-2022 Measuring intake and output [facility] Work Phone: Start: 08-05-2022 Notification of physician [facility] Work Phone: Start: 08-05-2022 Procedure discontinued [facility] Work Phone: Start: 08-05-2022 Provision of activit y privileges [facility] Work Phone: Start: 08-05-2022 Vital signs measurements [facility] Work Phone: Start: 08-05-2022 [facility] Work Phone: Start: 08-05-2022 Leukocyte reduced re d blood cells [facility] Work Phone: Start: 08-05-2022 [facility] Work Phone: Start: 08-05-2022 Admission procedure [facility] Work Phone: Start: 08-05-2022 Verification routine [facility] Work Phone: Start: 08-05-2022 Consultation [facility] Work Phone: Start: 07-27-2022 PAP TESTING PAP TESTING [facility] Start: 06-27-2022 Nonstress test [facility] Work Phone: Start: 06-27-2022 Obstetric monitoring [facility] Work Phone: Start: 06-27-2022 Vital signs measurements [facility] Work Phone: Start: 06-27-2022 [facility] Work Phone: Start: 06-27-[address] [facility] Work Phone: Start: 06-26-2022 End: 08-26-2022 ANTIBODY TITER ANTIBODY TITER Blood Bank Routine 31 weeks gestation of High-risk in third trimester Anti-E isoimmunization affecting in second trimester, single or unspecified fetus Chronic hepatitis C without hepatic coma (HCC) Expected: 06/26/2022, Expires: 08/26/2022 [facility] Work Phone: Comment on above: Expected: 06/26/2022 , Expires: 08/26/2022 Start: 06-26-2022 End: 08-26-2022 Hepatic function 2000 panel - Serum or Plasma HEPATIC FUNCTION PNL Lab Routine 31 weeks gestation of High-risk in third trimester Anti-E isoimmunization affecting in second trimester, single or unspecified fetus Chronic hepatitis C without hepatic coma (HCC) Expected: 06/26/2022, Expires: 08/26/2022 [facility] Work Phone: Comment on above: Expected: 06/26/2022 , Expires: 08/26/2022 Start: 06-26-2022 End: 06-26-2023 OBSTETRIC ULTRASOUND [facility] Work Phone: Comment on above: Expected: 06/26/2022 , Expires: 06/25/2023 Expected: 06/26/2022 , Expires: 06/26/2023 Start: 05-25-2022 End: 07-25-2022 HIV 1+2 Ab [Presence] in Serum or Plasma by Immunoassay [facility] Work Phone: Comment on above: Expected: 05/25/2022 , Expires: 07/25/2022 Start: 05-07-2022 Influenza vaccination [facility] Start: 04-24-2022 End: 06-24-2022 CBC W Auto Differential panel - Blood CBC + DIFF Lab Routine High-risk in second trimester 22 weeks gestation of Expected: 04/24/2022, Expires: 06/24/2022 [facility] Work Phone: Comment on above: Expected: 04/24/2022 , Expires: 06/24/2022 Start: 04-24-2022 End: 06-24-2022 GEST GLUC SCREEN, 1-HR, 50 GM, NON-FASTING GEST GLUC SCREEN, 1-HR, 50 GM, NON-FASTING Lab Routine High-risk in second trimester 22 weeks gestation of Expected: 04/24/2022, Expires: 06/24/2022 [facility] Work Phone: Comment on above: Expected: 04/24/2022 , Expires: 06/24/2022 Start: 04-24-2022 End: 06-24-2022 SYPHILIS TOTAL W/REFLEX SYPHILIS TOTAL W/REFLEX Lab Routine High-risk in second trimester 22 weeks gestation of Expected: 04/24/2022, Expires: 06/24/2022 [facility] Work Phone: Comment on above: Expected: 04/24/2022 , Expires: 06/24/2022 Start: 03-03-2022 End: 04-28-2022 SEQUENTIAL SCRN SCND TRIMESTER SEQUENTIAL SCRN SCND TRIMESTER Lab Routine 13 weeks gestation of Supervision of other high risk pregnancies, first trimester Encounter for screening of mother Expected: 03/03/2022 (Approximate), Expires: 04/28/2022 [facility] Work Phone: Comment on above: Expected: 03/03/2022 (Approximate), Expires: 04/28/2022 Start: 02-17-2022 End: 04-19-2022 SEQUENTIAL SCRN FRST TRIMESTER [facility] Work Phone: Comment on above: Expected: 02/17/2022 , Expires: 04/19/2022 Start: 01-20-2022 End: 03-22-2022 HSV 1,2 ANTIBODIES IGG+IGM HSV 1,2 ANTIBODIES IGG+IGM Lab Routine Screen for STD (sexually transmitted disease) Expected: 01/20/2022, Expires: 03/22/2022 [facility] Work Phone: Comment on above: Expected: 01/20/2022 , Expires: 03/22/2022 Start: 01-02-2022 End: 03-04-2022 CBC panel - Blood by Automated count CBC Lab Routine Encounter for supervision of normal in multigravida in first trimester Expected: 01/02/2022, Expires: 03/04/2022 [facility] Work Phone: Comment on above: Expected: 01/02/2022 , Expires: 03/04/2022 Start: 01-02-2022 End: 03-04-2022 Hepatitis B virus surface Ab [Presence] in Serum by Immunoassay HEP B SURF AG SCRN Lab Routine Encounter for supervision of normal in multigravida in first trimester Expected: 01/02/2022, Expires: 03/04/2022 [facility] Work Phone: Comment on above: Expected: 01/02/2022 , Expires: 03/04/2022 Start: 01-02-2022 End: 03-04-2022 Hepatitis C virus RNA [Units/volume] (viral load) in Serum or Plasma by YELENA with probe detection HCV QUANT RNA BY PCR Lab Routine Encounter for supervision of normal in multigravida in first trimester Viral hepatitis complicating , first trimester Expected: 01/02/2022, Expires: 03/04/2022 [facility] Work Phone: Comment on above: Expected: 01/02/2022 , Expires: 03/04/2022 Start: 01-02-2022 End: 03-04-2022 HIV 1+2 Ab [Presence] in Serum or Plasma by Immunoassay HIV 1 2 COMBO(AG/AB),WITH REFLEX TO DIFFERENTIATION Lab Routine Encounter for supervision of normal in multigravida in first trimester Expected: 01/02/2022, Expires: 03/04/2022 [facility] Work Phone: Comment on above: Expected: 01/02/2022 , Expires: 03/04/2022 Start: 01-02-2022 End: 03-04-2022 RUBELLA IGG AB RUBELLA IGG AB Lab Routine Encounter for supervision of normal in multigravida in first trimester Expected: 01/02/2022, Expires: 03/04/2022 [facility] Work Phone: Comment on above: Expected: 01/02/2022 , Expires: 03/04/2022 Start: 01-02-2022 End: 03-04-2022 SYPHILIS TOTAL W/REFLEX SYPHILIS TOTAL W/REFLEX Lab Routine Encounter for supervision of normal in multigravida in first trimester Expected: 01/02/2022, Expires: 03/04/2022 [facility] Work Phone: Comment on above: Expected: 01/02/2022 , Expires: 03/04/2022 Start: 01-02-2022 End: 03-04-2022 TYPE + SCREEN TYPE + SCREEN Blood Bank Routine Encounter for supervision of normal in multigravida in first trimester Expected: 01/02/2022, Expires: 03/04/2022 [facility] Work Phone: Comment on above: Expected: 01/02/2022 , Expires: 03/04/2022 Start: 09-06-2021 DEPRESSION ASSESSMENT DEPRESSION ASS ESSMENT [facility] Start: 2014 Hepatitis A Vaccine (1 of 2 - Risk 2-dose series) Hepatitis A Vaccine (1 of 2 - Risk 2-dose series) [facility] Start: 2014 Pneumococcal vaccination Pneum ococcal Vaccine (1 of 2 - PCV) [facility] Start: 2014 Urine microalbumin profile DTAP,TDAP,TD (1 - Tdap) [facility] Start: 2009 PEDS TO ADULT TRANSI TION ANNUAL ASSESSMENT PEDS TO ADULT TRANSITION ANNUAL ASSESSMENT [facility] Start: 2007 Adult depression screening assessment DEPRESSION SCREENING [facility] Start: 2007 PEDS TO ADULT TRANSI TION INITIAL DISCUSSION PEDS TO ADULT TRANSITION INITIAL DISCUSSION [facility] Start: 2006 HPV VACCINE (1 - 2-d ose series) HPV VACCINE (1 - 2-dose series) [facility] Start: 2001 PNEUMOCOCCAL (1 - PCV) PNEUMOCOCCAL (1 - PCV) [facility] Start: 2001 Pneumococcal vaccination Pneum ococcal Vaccine (1 of 2 - PCV) [facility] Start: 2000 COVID-19 VACCINE (#1) COVID-19 VACCI NE (#1) [facility] Start: 2000 COVID-19 VACCINE (1) COVID-19 VACCIN E (1) [facility] Start: 1996 HEPATITIS A (1 of 2 - Risk 2-dose series) HEPATITIS A (1 of 2 - Risk 2-dose series) [facility] Start: 1995 COVID-19 VACCINE (#1) COVID-19 VACCI NE (#1) [facility] Start: 1995 HEPATITIS B (1 of 3 - 3-dose series) HEPATITIS B (1 of 3 - 3-dose series) [facility] End: 03-17-2023 Antibody screen ANTIBODY SCREEN Blood Bank Routine High-risk in second trimester Anti-E isoimmunization affecting in second trimester, single or unspecified fetus Once per month for 6 Occurrences starting 03/17/2022 until 03/17/2023 [facility] Work Phone: Comment on above: Once per month for 6 Occurrences starting 03/17/2022 until 03/17/2023 Antibody screen ANTIBODY SCREEN Blood Bank Routine High-risk in second trimester Anti-E isoimmunization affecting in second trimester, single or unspecified fetus 03/17/2022 11:07 AM EDT [facility] Work Phone: Bacteria identified in Urine by Culture URINE CULTURE Microbiology Routine Encounter for supervision of normal in multigravida in first trimester Ordered: 01/02/2022 [facility] Work Phone: Comment on above: Ordered: 01/02/2022 Bacteria identified in Urine by Culture URINE CULTURE Microbiology Routine Encounter for supervision of high risk in first trimester, antepartum 08/02/2024 11:33 AM [facility] BACTERIAL VAGINOSIS NAAT BACTERI AL VAGINOSIS NAAT Lab Routine Supervision of high risk due to social problems, third trimester (HCC) 38 weeks gestation of (HCC) Vaginal discharge during in third trimester (HCC) History of herpes genitalis Ordered: 03/13/2025 [facility] Comment on above: Ordered: 03/13/2025 MYRA/TRICHOMONAS NAAT MYRA /TRICHOMONAS NAAT Lab Routine Supervision of high risk due to social problems, third trimester (HCC) 38 weeks gestation of (HCC) Vaginal discharge during in third trimester (HCC) History of herpes genitalis Ordered: 03/13/2025 [facility] Comment on above: Ordered: 03/13/2025 Chlamydia trachomatis+Neisseria gonorrhoeae DNA [Presence] in Unspecified specimen by YELENA with probe detection GC/CHLAMYDIA DNA DET Lab Routine Encounter for supervision of normal in multigravida in first trimester 01/02/2022 11:25 AM EDT [facility] Work Phone: Chlamydia trachomatis+Neisseria gonorrhoeae DNA [Presence] in Unspecified specimen by YELENA with probe detection GONORRHEA/CHLAMYDIA NAAT Lab Routine Encounter for supervision of high risk in first trimester, antepartum 08/02/2024 11:33 AM EST [facility] Chlamydia trachomatis+Neisseria gonorrhoeae DNA [Presence] in Unspecified specimen by YELENA with probe detection GONORRHEA/CHLAMYDIA NAAT Lab Routine Supervision of high risk due to social problems, third trimester (HCC) 36 weeks gestation of (HCC) 03/01/2025 11:25 AM EDT [facility] COVID & INFLUENZA A/ B & RSV PCR, ROUTINE COVID & INFLUENZA A/B & RSV PCR, ROUTINE Microbiology Routine Acute cough 07/05/2024 11:24 AM EDT [facility] Work Phone: End: 11-22-2025 ECG COMPLETE ECG COMPLETE ECG Routine Hx of intravenous drug use, in remission 1 Occurrences starting 11/22/2024 until 11/22/2025 [facility] Work Phone: Comment on above: 1 Occurrences starti ng 11/22/2024 until 11/22/2025 NEXPLANON REMOVAL NEXPLANON LAISHA LUISANA Procedures Routine Nexplanon insertion Ordered: 01/08/2023 [facility] Work Phone: Comment on above: Ordered: 01/08/2023 NUCHAL TRANSLUCENCY WHI NUCHAL T RANSLUCENCY WHI Anc Imaging Routine Encounter for supervision of normal in multigravida in first trimester Ordered: 01/20/2022 [facility] Work Phone: Comment on above: Ordered: 01/20/2022 OBSTETRIC ULTRASOUND WHI OBSTETR IC ULTRASOUND WHI Anc Imaging Routine Uncertain dates, antepartum, first trimester Ordered: 01/02/2022 [facility] Work Phone: Comment on above: Ordered: 01/02/2022 OBSTETRIC ULTRASOUND WHI OBSTETR IC ULTRASOUND WHI Anc Imaging Routine Supervision of other high risk pregnancies, first trimester Encounter for screening of mother Ordered: 02/17/2022 [facility] Work Phone: Comment on above: Ordered: 02/17/2022 End: 01-31-2025 OBSTETRIC ULTRASOUND WHI OBSTETRIC ULTRASOUND WHI Anc Imaging Routine Maternal care for isoimmunization, second trimester, single gestation Once per week for 10 Occurrences starting 11/22/2024 until 01/31/2025 [facility] Comment on above: Once per week for 10 Occurrences starting 11/22/2024 until 01/31/2025 End: 05-06-2025 OBSTETRIC ULTRASOUND WHI OBSTETRIC ULTRASOUND WHI Anc Imaging Routine Maternal care for isoimmunization, second trimester, single gestation Supervision of high risk in second trimester Every other week for 10 Occurrences starting 11/07/2024 until 05/06/2025, 3 completed [facility] Work Phone: Comment on above: Every other week for 10 Occurrences starting 11/07/2024 until 05/06/2025, 3 completed PAP FLUID CERVICAL SCREENING PAP FLUID CERVICAL SCREENING Lab Routine Encounter for screening for malignant neoplasm of cervix 01/02/2022 1:52 PM EDT [facility] Work Phone: Patient Education [facility] Work Phone: Patient referral [facility] Work Phone: ROUTINE, GR OUP B STREPTOCOCCUS BY PCR ROUTINE, GROUP B STREPTOCOCCUS BY PCR Microbiology Routine Supervision of high risk due to social problems, third trimester (HCC) 36 weeks gestation of (HCC) 03/01/2025 11:25 AM TetherballT [facility] Work Phone: T VAGINALIS AMPLIFICATION T VAGI NALIS AMPLIFICATION Lab Routine Encounter for screening for malignant neoplasm of cervix Ordered: 01/02/2022 [facility] Work Phone: Comment on above: Ordered: 01/02/2022 T VAGINALIS AMPLIFICATION T VAGI NALIS AMPLIFICATION Lab Routine Encounter for supervision of normal in multigravida in first trimester Uncertain dates, antepartum, first trimester Gonorrhea affecting in first trimester 01/20/2022 2:12 PM TetherballT [facility] [place] Work Phone: TOX SCREEN ROUT UR TOX SCREEN RO UT UR Lab Routine 13 weeks gestation of Drug use disorder 02/17/2022 11:40 AM Gravitant [facility] Work Phone: TRICHOMONAS VAGINALI S NAAT TRICHOMONAS VAGINALIS NAAT Lab Routine History of trichomoniasis 08/02/2024 11:33 AM EST [facility] TRICHOMONAS VAGINALI S NAAT TRICHOMONAS VAGINALIS NAAT Lab Routine Supervision of high risk due to social problems, third trimester (HCC) 36 weeks gestation of (HCC) 03/01/2025 11:25 AM EDT [facility] URINE OB DIP B/O URINE OB DIP B/ O Lab Routine Screen for STD (sexually transmitted disease) 13 weeks gestation of Ordered: 02/17/2022 [facility] Work Phone: Comment on above: Ordered: 02/17/2022 URINE OB DIP B/O URINE OB DIP B/ O Lab Routine 31 weeks gestation of High-risk in third trimester Anti-E isoimmunization affecting in second trimester, single or unspecified fetus Ordered: 06/26/2022 [facility] Work Phone: Comment on above: Ordered: 06/26/2022 URINE OB DIP B/O URINE OB DIP B/ O Lab Routine Supervision of high risk due to social problems, third trimester (HCC) 32 weeks gestation of (HCC) 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, single or unspecified fetus (HCC) Ordered: 01/31/2025 [facility] Work Phone: Comment on above: Ordered: 01/31/2025 URINE OB DIP B/O URINE OB DIP B/ O Lab Routine Supervision of high risk due to social problems, third trimester (HCC) 38 weeks gestation of (HCC) Ordered: 03/13/2025 [facility] Work Phone: Comment on above: Ordered: 03/13/2025 End: 07-10-2023 US MATERNAL LVL2 US MATERNAL LVL2 Radiology Routine 29 weeks gestation of Supervision of high risk in third trimester Anti-E isoimmunization affecting in second trimester, single or unspecified fetus 1 Occurrences starting 06/10/2022 until 07/10/2023 [facility] Work Phone: Comment on above: 1 Occurrences starti ng 06/10/2022 until 07/10/2023 [facility] Immunizations Immunization Date Immunization Notes Care Provider Susana monaco 01-03-2025 tetanus toxoid, redu denver diphtheria toxoid, and acellular pertussis vaccine, adsorbed Hank Boss MD Work Phone: [facility] 05-25-2022 tetanus toxoid, redu denver diphtheria toxoid, and acellular pertussis vaccine, adsorbed Kayla Robb MD Work Phone: [facility] 10-31-2013 tetanus toxoid, redu denver diphtheria toxoid, and acellular pertussis vaccine, adsorbed [facility] Work Phone: 05-27-2012 influenza virus vaccine, live, attenuated, for intranasal use Kayla Robb MD Work Phone: [facility] Work Phone: 05-27-2012 influenza virus vaccine, unspecified formulation [facility] Work Phone: [facility] Payers Date Payer Category Payer Unknown [id number] 2022 Unknown [id number] 2021 Medicaid [employer] [employer] [id number] 2021-[facility] [phone] [place] [id number] Medicaid [id number] 2021 Medicaid [id number] 2017 Self-pay Unknown [id number] Unknown [id number] Unknown [id number] Unknown [id number] Social History Date Type Detail Facility Start: 04-29-2016 End: 07-27-2024 Tobacco smoking status NHIS Smokes tobacco daily [facility] History of tobacco use Cigarette Smoker [facility] Start: 04-29-2016 End: 02-10-2023 Cigarettes smoked current (pack per day) - Reported 0.5 [facility] Work Phone: Start: 04-29-2016 End: 07-27-2024 Tobacco use and exposure Smokeless tobacco non-user [facility] Start: 07-27-2019 End: 03-13-2025 Alcohol intake Current non-drinker of alcohol (finding) [facility] Start: 1995 Sex Assigned At Not on file [facility] Start: 12-09-2021 End: 07-21-2022 Exposure to SARS-CoV-2 (event) Not sure [facility] Start: 12-23-2021 End: 08-06-2022 Tobacco smoking status NHIS Unknown if ever smoked [facility] Work Phone: Start: 02-02-2015 None [facility] Work Phone: Start: 02-02-2015 Cigarettes [facility] Work Phone: Start: 1995 Sex Assigned At Female [facility] Work Phone: Start: 11-30-2021 [facility] Start: 09-09-2022 End: 07-05-2024 Tobacco smoking status NHIS Ex-smoker [facility] History of tobacco use Current smoker [facility] Start: 10-14-2022 End: 02-10-2023 Tobacco use panel [facility] Work Phone: National Score (1-10 0), lower number is lower risk 92 [facility] Work Phone: The thought of harmi ng myself has occurred to me Never [facility] Start: 07-27-2024 Education 14 [facility] Goals Date Patient Goal Desired Activity /State Personal health goal Functional Status Date Assessment Result Facility 04-23-2016 Are you deaf, or do you have serious difficulty hearing No 04/23/2016 11:00 AM EDT Vangie Castro RN No [facility] 04-23-2016 Are you blind, or do you have serious difficulty seeing, even when wearing glasses No 04/23/2016 11:00 AM EDT Vangie Castro RN No [facility] 04-23-2016 Do you have serious difficulty walking or climbing stairs No 04/23/2016 11:00 AM EDT Vangie Castro RN No [facility] 04-23-2016 Do you have difficul ty dressing or bathing No 04/23/2016 11:00 AM EDT Vangie Castro RN No [facility] 04-23-2016 Because of a physica l, mental, or emotional condition, do you have difficulty doing errands alone such as visiting a physician's office or shopping No 04/23/2016 11:00 AM EDT Vangie Castro RN No [facility] Mental Status Date Assessment Result Facility 04-23-2016 Because of a physica l, mental, or emotional condition, do you have serious difficulty concentrating, remembering, or making decisions No 04/23/2016 11:00 AM EDT Vangie Castro RN No [facility] Clinical Notes 01-14-2016 to 03-16-2025 Telephone Encounter - Ynes Jones RN - 03/16/2025 12:14 PM EDTTelephone Encounter - Ynes Jones RN - 03/16/2025 12:14 PM EDTTelephone Encounter - Hussein Fields RN - 03/15/2025 3:35 PM EDT Note Date & Type Note Facility 03-16-2025 Telephone encounter Note Patient notified. Ynes Jones RN [facility] 03-16-2025 Miscellaneous Notes Patient notified. Ynes [...] Lachelle Bean RN documented in this encounter [facility] 03-16-2025 Telephone encounter Note Ok to monitor at this time. If bright red vaginal bleeding, LOF or contractions to go to L&D or check back later today if needs added. Thanks, Lorena Sharma APRN.CNM [facility] Work Phone: 03-16-2025 Telephone encounter Note Patient called for an update. Please advise. Lachelle Bean RN [facility] 03-16-2025 Telephone encounter Note 38w4d Patient [...] available appointments. Please advise. Lachelle Bean RN [facility] 03-15-2025 Telephone encounter Note MyChart message sent to patient per request. Hussein Fields RN [facility] 03-15-2025 Miscellaneous Notes MyChart message sent [...] mychart message response. documented in this encounter [facility] 03-15-2025 Telephone encounter Note yes,appropriate. Kayla Robb MD [facility] 03-15-2025 Telephone encounter Note Ob patient is 38w3d is scheduled for IOL on 03/19/2025. Called stating that she had + BV & yeast cultures and that Monistat was sent to her pharmacy for yeast infection. Patient asking if she can have a pill for yeast since IOL is scheduled for Wednesday. Patient requesting a Keep Me Certified message response. [facility] 03-13-2025 Note Addended by: KAYLA ROBB on: 03/13/2025 04:03 PM Modules accepted: Orders [facility] 03-13-2025 Miscellaneous Notes Addended by: KAYLA ROBB on: 03/13/2025 04:03 PM Modules accepted: Orders Addended by: SUMI BUCKNER on: 03/13/2025 03:40 PM Modules accepted: Orders RR- VB No. LOF some vaginal discharge, some pruritus, no new sexual partners, CTXS No. Movement: present. Other c/o: lots of pressure Medication list reviewed. SENSITIVE EXAM: The sensitive examination was discussed with the Patient or Patient's Authorized Curtain Supervisor. As applicable, any other physician, advance practice provider, medical student, or other health professional student that will be observing or involved in the sensitive examination for educational or training purposes was discussed with the Patient or Authorized Curtain Supervisor. The Patient or Authorized Curtain Supervisor has agreed to proceed with the sensitive [...] risk due to social problems, third trimester ([facility]) Orders: URINE OB DIP B/O 38 weeks gestation of ([facility]) Orders: URINE OB DIP B/O Vaginal discharge during in third trimester ([facility]) History of herpes genitalis no evidence [...] amniotic fluid. Lab Address: Ob/gynecology [address] [facility] [address] Dept: [phone] Provider: MD Kayla Bejarano M.D. documented in this encounter [facility] 03-13-2025 Note Addended by: Michael BUCKNER on: 03/13/2025 03:40 PM Modules accepted: Orders [facility] 03-13-2025 Progress note Formatting of t his note might be different from the original. RR- VB No. LOF some vaginal discharge, some pruritus, no new sexual partners, CTXS No. Movement: present. Other c/o: lots of pressure Medication list reviewed. SENSITIVE EXAM: The sensitive examination was discussed with the Patient or Patient's Authorized Curtain Supervisor. As applicable, any other physician, advance practice provider, medical student, or other health professional student that will be observing or involved in the sensitive examination for educational or training purposes was discussed with the Patient or Authorized Curtain Supervisor. The Patient or Authorized Curtain Supervisor has agreed to proceed with the sensitive [...] risk due to social problems, third trimester ([facility]) Orders: URINE OB DIP B/O 38 weeks gestation of ([facility]) Orders: URINE OB DIP B/O Vaginal discharge during in third trimester ([facility]) History of herpes genitalis no evidence [...] presence of amniotic fluid. Lab Address: Ob/gynecology [address] [place] [id number] Dept: [phone] Provider: MD Kayla Bejarano M.D. [facility] 03-13-2025 Instructions Sumi Buckner MA - 03/13/2025 2:54 PM EDT SEQUENTIAL SCREENINGS The [facility] offers sequential screenings for women who [...] It will require an appointment with our signal maintenance technician. This is not an ultrasound performed [...] the above symptoms, contact our office at [phone] and ask to speak with a nurse. After hours, you can call doctors registry at [phone] OR call [facility] at [phone] and ask to have the doctor consumer educator paged. If you consider this an emergency, dial 0-8-3 or go to your nearest emergency department. NEED HELP? Are you dealing with a violent or abusive relationship? Are you a victim of rape or sexual assult? Call [facility] ([place]) 24 hour Crisis Hotline: 639.312.3609 or 604-777-2614. MANUAL Your Guide to a Healthy manual is now on-line. Visit [email or web address] [email or web address] to download your free copy documented in this encounter [facility] 03-07-2025 Progress note Formatting of t his note might be different from the original. RR- VB No. LOF No. CTXS irreg. Movement: present. Other c/o: uncomfortable, hard to sleep. Lots of pressure Medication list reviewed. SENSITIVE EXAM: The sensitive examination was discussed with the Patient or Patient's Authorized Curtain Supervisor. As applicable, any other physician, advance practice provider, medical student, or other health professional student that will be observing or involved in the sensitive examination for educational or training purposes was discussed with the Patient or Authorized Curtain Supervisor. The Patient or Authorized Curtain Supervisor has agreed to proceed with the sensitive [...] induction at 39 weeks Kayla Robb M.D. [facility] 03-07-2025 Miscellaneous Notes RR- VB No. LOF No. CTXS irreg. Movement: present. Other c/o: uncomfortable, hard to sleep. Lots of pressure Medication list reviewed. SENSITIVE EXAM: The sensitive examination was discussed with the Patient or Patient's Authorized Curtain Supervisor. As applicable, any other physician, advance practice provider, medical student, or other health professional student that will be observing or involved in the sensitive examination for educational or training purposes was discussed with the Patient or Authorized Curtain Supervisor. The Patient or Authorized Curtain Supervisor has agreed to proceed with the sensitive [...] Kayla Robb M.D. documented in this encounter [facility] 03-07-2025 Instructions Sumi Buckner MA - 03/07/2025 10:57 AM EDT SEQUENTIAL SCREENINGS The [facility] offers sequential screenings for women who [...] It will require an appointment with our signal maintenance technician. This is not an ultrasound performed [...] the above symptoms, contact our office at [phone] and ask to speak with a nurse. After hours, you can call doctors registry at [phone] OR call [facility] at [phone] and ask to have the doctor consumer educator paged. If you consider this an emergency, dial 4-4-4 or go to your nearest emergency department. NEED HELP? Are you dealing with a violent or abusive relationship? Are you a victim of rape or sexual assult? Call [facility] ([facility] 24 hour Crisis Hotline: 379.708.6458 or 068-433-0358. MANUAL Your Guide to a Healthy manual is now on-line. Visit [email or web address] Thiago to download your free copy documented in this encounter [facility] 03-01-2025 Progress note Formatting of t his note might be different from the original. RR- VB No. LOF No. CTXS few BH, less since not working. . Movement: present. Other c/o: denies HSV symtpoms Medication list reviewed. SENSITIVE EXAM: The sensitive examination was discussed with the Patient or Patient's Authorized Curtain Supervisor. As applicable, any other physician, advance practice provider, medical student, or other health professional student that will be observing or involved in the sensitive examination for educational or training purposes was discussed with the Patient or Authorized Curtain Supervisor. The Patient or Authorized Curtain Supervisor has agreed to proceed with the sensitive [...] today GBS done Kayla Robb M.D. T [facility] 03-01-2025 Miscellaneous Notes RR- VB No. LOF No. CTXS few BH, less since not working. . Movement: present. Other c/o: denies HSV symtpoms Medication list reviewed. SENSITIVE EXAM: The sensitive examination was discussed with the Patient or Patient's Authorized Curtain Supervisor. As applicable, any other physician, advance practice provider, medical student, or other health professional student that will be observing or involved in the sensitive examination for educational or training purposes was discussed with the Patient or Authorized Curtain Supervisor. The Patient or Authorized Curtain Supervisor has agreed to proceed with the sensitive [...] Kayla Robb M.D. documented in this encounter [facility] 03-01-2025 Instructions Sumi Buckner MA - 03/01/2025 11:08 AM EDT SEQUENTIAL SCREENINGS The [facility] offers sequential screenings for women who [...] It will require an appointment with our signal maintenance technician. This is not an ultrasound performed [...] the above symptoms, contact our office at [phone] and ask to speak with a nurse. After hours, you can call doctors registry at [phone] OR call [facility] at [phone] and ask to have the doctor consumer educator paged. If you consider this an emergency, dial 9-1-1 or go to your nearest emergency department. NEED HELP? Are you dealing with a violent or abusive relationship? Are you a victim of rape or sexual assult? Call [facility] ([place]) 24 hour Crisis Hotline: 253.829.2942 or 173-174-6244. MANUAL Your Guide to a Healthy manual is now on-line. Visit [email or web address] Thiago to download your free copy documented in this encounter [facility] 02-14-2025 Note Indication Evaluation of growth [...] by U/S: 03/21/2025 Assigned: based on stated CHNAELL, selected on 12/20/2024 Assigned GA 34 w [...] 11 oz EFW by: Hadlock (HC-AC-FL) Extended Reservations Manager 3.8 mm Extremities / Bony Struc [...] risk due to social problems, third trimester ([facility]) - ICD9: V23.89, ICD10: O09.73 (primary diagnosis) - URINE OB DIP B/O 2. 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 34 weeks gestation of ([facility]) - ICD9: V22.2, ICD10: Z3A.34 PTL precautions - URINE OB DIP B/O Lachelle Kramer MD [facility] 02-14-2025 Miscellaneous Notes S: Calin Graf [...] risk due to social problems, third trimester ([facility]) - ICD9: V23.89, ICD10: O09.73 (primary diagnosis) - URINE OB DIP B/O 2. 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 34 weeks gestation of ([facility]) - ICD9: V22.2, ICD10: Z3A.34 PTL precautions - URINE OB DIP B/O Lachelle Kramer MD documented in this encounter [facility] 02-14-2025 Instructions Sarahi Chen MA - 02/14/2025 1:16 PM EDT SEQUENTIAL SCREENINGS The [facility] offers sequential screenings for women who [...] It will require an appointment with our signal maintenance technician. This is not an ultrasound performed [...] the above symptoms, contact our office at [phone] and ask to speak with a nurse. After hours, you can call doctors registry at [phone] OR call [facility] at [phone] and ask to have the doctor consumer educator paged. If you consider this an emergency, dial 9-1-0 or go to your nearest emergency department. NEED HELP? Are you dealing with a violent or abusive relationship? Are you a victim of rape or sexual assult? Call [facility] ([place]) 24 hour Crisis Hotline: 792.126.4064 or 300-099-3334. MANUAL Your Guide to a Healthy manual is now on-line. Visit [email or web address] Thiago to download your free copy documented in this encounter [facility] 01-31-2025 Progress note Formatting of t [...] or prn kick counts Kayla Robb M.D. [facility] 01-31-2025 Miscellaneous Notes RR- VB No. [...] Kayla Robb M.D. documented in this encounter [facility] 01-31-2025 Instructions Sumi Buckner MA - 01/31/2025 11:31 AM EDT SEQUENTIAL SCREENINGS The [facility] offers sequential screenings for women who [...] It will require an appointment with our signal maintenance technician. This is not an ultrasound performed [...] the above symptoms, contact our office at [phone] and ask to speak with a nurse. After hours, you can call doctors registry at [phone] OR call [facility] at [phone] and ask to have the doctor consumer educator paged. If you consider this an emergency, dial 1-3-8 or go to your nearest emergency department. NEED HELP? Are you dealing with a violent or abusive relationship? Are you a victim of rape or sexual assult? Call [facility] ([place]) 24 hour Crisis Hotline: 892.113.9077 or 085-845-9462. MANUAL Your Guide to a Healthy manual is now on-line. Visit [email or web address] to download your free copy documented in this encounter [facility] 01-17-2025 Note Indication Evaluation of growth. [...] 9 oz EFW by: Hadlock (HC-AC-FL) Extended Reservations Manager 3.0 mm Extremities / Bony Struc [...] scans for monitoring 30 weeks gestation of ([facility]) US results pending from today kick counts f/u in 2 weeks or prn Kayla Robb M.D. [facility] 01-17-2025 Miscellaneous Notes RR- VB No. [...] Kayla Robb M.D. documented in this encounter [facility] 01-17-2025 Instructions Gustavo SarahiWILLIAMS velasco - 01/17/2025 1:18 PM EDT SEQUENTIAL SCREENINGS The [facility] offers sequential screenings for women who [...] It will require an appointment with our signal maintenance technician. This is not an ultrasound performed [...] the above symptoms, contact our office at [phone] and ask to speak with a nurse. After hours, you can call doctors registry at [phone] OR call [facility] at [phone] and ask to have the doctor consumer educator paged. If you consider this an emergency, dial 9--1 or go to your nearest emergency department. NEED HELP? Are you dealing with a violent or abusive relationship? Are you a victim of rape or sexual assult? Call [facility] ([place]) 24 hour Crisis Hotline: 536.864.2426 or 312-371-3290. MANUAL Your Guide to a Healthy manual is now on-line. 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) NIPT fetus is E antigen negative so only Growth us no need for dopplers [id number] [facility] 01-03-2025 Miscellaneous Notes Associated Problem(s): 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) NIPT fetus is E antigen negative so only Growth us no need for dopplers [id number] Associated Problem(s): Supervision of high risk due [...] only Growth us no need for dopplers [id number] 28 weeks gestation of (HCC) Title 19 [...] Hank Kohli MD documented in this encounter [facility] 01-03-2025 Evaluation + Plan note Associated Problem(s): Supervision of high risk due to social problems, third trimester (HCC) [facility] 01-03-2025 Progress note Formatting of t [...] only Growth us no need for dopplers [id number] 28 weeks gestation of (HCC) Title 19 [...] 7+ YR (ADACEL, BOOSTRIX) Hank Kohli MD [facility] 01-03-2025 Note HNO ID: [id number] Author: LILIANA CROW MA Service: ? Author Type: Ammonia Box Tender Type: Progress Notes Filed: 01/03/2025 14:28 Note [...] severely ill: Yes Patient denies history of Guillain-[place] Syndrome (a severe paralytic illness): Yes Tdap Adacel injection was given without incident. See immunizations for details of immunizations administered today. VIS sheet provided: Yes Provider Gera was present in office at time of injection. Liliana Crow MA [facility] 01-03-2025 History of Presen t [...] severely ill: Yes Patient denies history of Guillain-[place] Syndrome (a severe paralytic illness): Yes Tdap Adacel injection was given without incident. See immunizations for details of immunizations administered today. VIS sheet provided: Yes Provider Gera was present in office at time of injection. Liliana Crow MA documented in this encounter [facility] 01-01-2025 Telephone encounter Note 28-32 Week Follow Up Call with OB Navigator Estimated Date of Delivery: 03/26/25 Gestational age: 28w0d Call patient at [phone] Patient/caregiver answered: No Left voice message MyChart message sent LULU Jordan, RN OB Clinical Navigator [phone] [facility] 01-01-2025 Miscellaneous Notes 28-32 Week Follow Up Call with OB Navigator Estimated Date of Delivery: 03/26/25 Gestational age: 28w0d Call patient at [phone] Patient/caregiver answered: No Left voice message MyChart message sent LULU Jordan, RN OB Clinical Navigator [phone] documented in this encounter [facility] 12-20-2024 Note Indication Antibody E isoimmunization [...] M.D. [facility] 12-20-2024 Note HNO ID: [id number] Author: KAYLA ROBB MD Service: ? 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 [facility] 12-20-2024 History of Presen t illness Narrative RR- VB No. LOF No. CTXS No. Movement: present. Other c/o: No. Medication list reviewed. SENSITIVE EXAM: Sensitive exam not performed. 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 documented in this encounter [facility] 12-20-2024 Instructions Beckie Duque MA - 12/20/2024 1:16 PM EDT SEQUENTIAL SCREENINGS The [facility] offers sequential screenings for women who [...] It will require an appointment with our signal maintenance technician. This is not an ultrasound performed [...] the above symptoms, contact our office at [phone] and ask to speak with a nurse. After hours, you can call doctors registry at [phone] OR call [facility] at [phone] and ask to have the doctor consumer educator paged. If you consider this an emergency, dial [phone] or go to your nearest emergency department. NEED HELP? Are you dealing with a violent or abusive relationship? Are you a victim of rape or sexual assult? Call [facility] ([place]) 24 hour Crisis Hotline: 498.394.3923 or 687-422-1343. MANUAL Your Guide to a Healthy manual is now on-line. Visit [email or web address] Thiago to download your free copy documented in this encounter [facility] 12-07-2024 Telephone encounter Note 12/07/2024 MFM [...] anxiety. All questions answered. Lachelle Hickman MD [facility] 12-07-2024 Miscellaneous Notes 12/07/2024 [facility] Pt called and identified. NIPT testing for [...] Lachelle Hickman MD documented in this encounter [facility] 12-07-2024 Note [facility] Referral Lab 1 [facility] ic Labs 12/07/2024 8:40 AM EDT [facility] Comment on above: [facility] 12-06-2024 Note HNO ID: [id number] Author: LACHELLE HICKMAN MD Service: ? Author Type: Physician Type: Progress Notes Filed: 12/06/2024 15:55 Note Text: [facility] STAFF Pt is a 29 year old at 24w2d who has the following issues. Please see recommendations in problem based charting. Last menstrual period 06/19/2024. I have communicated my name and active licensure. The patient's identity and physical location were verified at the time of this visit. 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 Further planning after antigen status known. Continue MCA dopplers for now. Pt should have an inperson MF visit at 34-36 weeks for delivery planning. Pt states that her general OB wants her to deliver at [place] as [place] is not idea for an baby affected by isoimmunization. MD Lachelle Perez MD [facility] 12-06-2024 History of Present illness Narrative [facility] [facility] [facility] ST[facility] Pt is a 29 year old at 24w2d who has the following issues. Please see recommendations in problem based charting. Last menstrual period 06/19/2024. I have communicated my name and active licensure. The patient's identity and physical location were verified at the time of this visit. 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 Further planning after antigen status known. Continue MCA dopplers for now. Pt should have an inperson MFM visit at 34-36 weeks for delivery planning. Pt states that her general OB wants her to deliver at [place] as [place] is not idea for an baby affected by isoimmunization. MD Lachelle Perez MD documented in this encounter [facility] 12-06-2024 Note Indication Evaluation of growth [...] 9 oz EFW by: Hadlock (HC-AC-FL) Extended Reservations Manager 3.4 mm Extremities / Bony Struc [...] REFLEX PANEL; Future Kayla Robb M.D. T [facility] 12-06-2024 Miscellaneous Notes RR- VB No. LOF No. CTXS No. Movement: present. Other c/o: No. Medication list reviewed. SENSITIVE EXAM: Sensitive exam not performed. Physical Exam See Flow Sheet Abd: soft, nontender, gravid A/P 24w2d Estimated Date of Delivery: 03/26/25 Assessment & Plan Supervision of high risk in second trimester ([facility]) Orders: GESTATIONAL GLUCOSE SCREEN, 1-HOUR, 50 [...] REFLEX PANEL; Future 24 weeks gestation of ([facility]) Orders: GESTATIONAL GLUCOSE SCREEN, 1-HOUR, 50 GRAM, NON-FASTING; Future SYPHILIS TREPONEMAL W/REFLEX; Future ANEMIA REFLEX PANEL; Future Kayla Robb M.D. documented in this encounter [facility] 12-06-2024 Instructions Sumi Buckner MA - 12/06/2024 11:16 AM EDT SEQUENTIAL SCREENINGS The [facility] offers sequential screenings for women who [...] It will require an appointment with our signal maintenance technician. This is not an ultrasound performed [...] the above symptoms, contact our office at [phone] and ask to speak with a nurse. After hours, you can call doctors registry at [phone] OR call [facility] at [phone] and ask to have the doctor consumer educator paged. If you consider this an emergency, dial [phone] or go to your nearest emergency department. NEED HELP? Are you dealing with a violent or abusive relationship? Are you a victim of rape or sexual assult? Call [facility] ([place]) 24 hour Crisis Hotline: 718.474.7675 or 808-914-7597. MANUAL Your Guide to a Healthy manual is now on-line. Visit [email or web address] ncyGuide to download your free copy documented in this encounter [facility] 11-29-2024 History of Present illness Narrative Images from the original note were not included. REPRODUCTIVE GENETIC COUNSELING FOLLOW-UP VISIT Calin Graf : 1995 Above identifiers confirmed by Roxanne Cordoba MS, [facility] Consultation requested by: Dr. Lachelle Hickman Date of clinic visit: November 29, 2024 Marine Service Operator offered/present: No - Samoan per EMR Calin Graf is a 29 [...] No Hemoglobinopathies: No; Patient's MCV: 87.1 fL Cheondoism Diseases: Not at increased risk Other: No [...] yes (Date: 09/13/24, Result: Negative). - NIPT ([id number]): - Screen negative for Trisomy 21, Trisomy 18, Trisomy 13, and sex chromosome aneuploidies - Reported sex: male Ultrasounds: - Dating scan at 6 weeks gestation by LMP (performed by Rylee Scott APRN.INTEGRITY DIRECTOR): 6 weeks by scan. - First trimester [...] history of genetic disorders. - Patient's ethnicity: Wolof - Partner's ethnicity: Northern - Patient and/or partner did not report -Omani, , Mediterranean, Ashkenazi Cheondoism and/or Kenyan-Montenegrin/Cajun ancestries unless noted above. - Patient and [...] HDFN and associated risks are deferred to [facility]. Reviewed the availability of antigen non-invasive testing [...] Graf stated understanding, and opts for NIPT ([place]) for E antigen screening. Due to patient preference/request, a full , medical, and family history were not reviewed today. Carrier screening options were not reviewed today either. A follow-up genetic counseling visit is available if desired to review this. Carrier screening should be offered at a future OB visit or prior to any future pregnancies. SUGGESTIONS/PLAN: 1. Ms. Graf opted for NIPT ([place]) which includes E antigen screening. The orders [...] greater than 50% of which was spent ocis-ds-dgra counseling. This plan is being carried out under the oversight of Dr. Maria C Bond. This note will also be sent to the referring provider via the electronic medical record. Roxanne Cordoba MS, [facility] Licensed, Certified Genetic Counselor [facility] CC: Dr. Lachelle Hickman - Referring Physician Dr. Kayla Robb - OB Dr. Maria C Bond (filter press operator) documented in this encounter [facility] 11-29-2024 Note HNO ID: [id number] Author: ROXANNE CORDOBA LGC Service: ? Author Type: Genetic Counselor Type: Progress Notes Filed: 12/26/2024 18:42 Note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 [address] [facility] [address] [place] [address] [facility] [address] [place], [place] [id number] Anayeli Lambert MD [address] [place] [address] [facility] [address] [facility], [address] [place] [address] [facility] [address] [place] [address] [facility] Counseling Services [place] / [place] [phone]/ [phone] Alycia Hays [address] [facility] [phone] Aves of Counseling and Mediation Prisca / Jesse [phone] [facility] [address] [place] [address]/ new freedom and given [phone] Hunter Waite, DANI, CLC [facility] Therapy Workshops, telehealth and at home visits. [phone] [facility] counseling sugar [place] 20 locations [place], [place], [place], [place], [place], [place], [place], [facility], [place], [place], [place], [place], [place], [place], [facility], [place], [place] ,[facility], [place], [place],[facility], south [place], [facility], [facility], [facility], [place] www.[facility] [phone] Psychotherapy resources outside of [facility] are listed below [facility] [employer] Psychotherapy Web: https://www.Sourcery/ Support International Online Provider Directory https://TrademarkFly/ Insight Counseling https://Metabar/ WhereInFair for Behavioral Health and Wellness Web: https://Startupbootcamp FinTech/ S5 Tech for Effective Living Web: https://MisocalivingPiku Media K.K./ LifeStance Web: https://Integral Ad Science.Action Online Entertainment/location/s sparks/maine/ [facility] Web: https://www.IMImobileunion county general [facility].or / [facility] Web: https://DvineWave.org/ Recovery Resources Mental health and substance abuse help Web: https://www.Agilis Biotherapeutics.AMW Foundation & RESOURCES Support International Direct peer support and connection to professional resources Non-Emergency Helpline Phone: / Text: [phone] Web: https://www..net/ Online Provider Directory: https://TrademarkFly/ Online Support Meetings: https://www..net/get-he lp/iio-wvgxhj-uracvly-meetings/ ANTHONY Baby and Tmr Teacher Services Web: https://wwwCodeRyte/ MotherToBaby Expert information on medication use during and Text: [phone] Web: https://mothertobaby.org/ NATIONAL REGISTRY FOR PSYCHIATRIC MEDICATIONS Currently studying the safety of antidepressants, ADHD medications and atypical antipsychotics taken during TO PARTICIPATE CALL TOLL-FREE: Web: https://womenentalhealth.org/re search/pregnancyregistry/ Support Groups: [facility]- Follow on facebook Baby Bistro support group led by [facility] department Resilient Mamas - Support Group [facility] Dakotass.org The POEM support group [phone] Www.poemonline.org Follow on facebook - MEAGHAN connelly Online support meetings PSI https://www..net/get-he lp/air-ondzfg-fnsgznj-meetings/ [facility] mommy and me virtual support group 11:30-1pm Support for mothers and new babies and toddlers Avery childbirth education: Childbirth @[facility].org or call [phone] CRISIS: CRISIS HOTLINE [phone], 911 or go to the nearest ER. [facility] [phone] / [facility] [phone] https://www.[facility].org Crisis text line text the word HOME to [address]643 [facility] Counseling [address] [facility] [address] www.Juvent Regenerative Technologies Corporation Kaur Saunders clinical counseling [address] [address] www.JobScout [phone] Holding space psychotherapy Faviola Thomas DIRECTOR OF ROOMS VIDEO GAMES MECHANIC-S [address] [facility] www.Allux Medical [phone]/ Lori [phone] They all offer virtual. All work with trauma Support groups Online support meetings PSI https://www..net/get-he lp/xyv-msfujt-uyzfsaa-meetings/ Here are the support groups they offer: [...] Wednesday of each month Location: Dmitriy Christine [facility] [address] [place] [address] Room 122 (library room) 7-8:00 p.m. When you enter the synagogue parking lot off of [address] the entrance door closest to our meeting room is on the front of the building toward the right. For those who are more comfortable with a virtual platform, POEM offers online support group options several days of the week. To register for an online group or to find out more about POEM, website at: https://mhaohio.org/get-help/[facility] centerdghu-rvmbog-ecokbe/poem-services/ offer a confidential helpline: private Facebook group is called MEAGHAN Connelly Here are the groups they offer: Traumatic childbirth resources: Http://pattch.org/ https://www.RevolutismaelWyzAnt.comjenniferSeer.Action Online Entertainment/ Name Location (s) Phone # (s) Services Website [facility] Psychotherapy [address] [place], [place] - [phone]; [address] [phone] In-Person GROUPS INDIVIDUAL THERAPY MATERNAL- MENTAL HEALTH MEDICATION MANAGEMENT PLAY AND ART THERAPY TELETHERAPY https://www.Sourcery/s ervices/ Shayy of Kaylee MONTAÑO? [address] [place], [place] [address] ? [address], [address] [place], [place] [address] ? ELLIS [address] [place], [place] [address]? Grief Support Groups Individual Grief Counseling Spiritual Care Memorial Events https://gissell.[facility].org/grief-services [facility] [address] [facility], [place], [place] [address]; ; Email: [email or web address] Women's Mental Health; Couples Counseling; Trauma (EMDR); Stress Management; Mood and Anxiety Related Disorders- and much more https://www.okay.com/ LifeStance Numerous as they have contract providers: access website to find specific providers near you Counseling including CBT and EMDR as well as many more modalities; Medication Management; Telehealth and In-Person https://Khan Academy/ [facility] [address] [place], [place] [address]; [phone] Personal, Family and Group Therapy; Psychological Testing and Diagnosis; Medication Management; Life and Career Coaching; Psychoanalysis; Literacy Testing; Yoga and Meditation https://Startupbootcamp FinTech/ Magnetecs [facility] [address] [facility] [address], [place] [address] [address] ; [address] [facility], [address] [place] [address]; Office # for both sites: Individual and Couples Counseling https://www.Echoing Green/ paymentinsurance.html OCD & Anxiety [facility] [address] [facility], [address], [place] [address]; Specialize in Cognitive-Behavioral Therapy (CBT) for the treatment of anxiety disorders across the lifespan. TELEHEALTH ONLY. https://ocdandanxietycenteroBlykv Nemedia/faqs [facility] [address] [facility] [address] [place], [address] [place] [address] [facility] [place], [address] [place] [address] [facility] [place], [address] [address] [address] [address] [facility] [place]. [place], [place], [address] [address], [id number] [place] [address] [facility] [place] [address] [place] [address] [place], [place], [id number] Transportation Services To minimize patient barriers, [facility] provides transportation services to patients who [...] assistance Substance abuse treatment Medication assisted treatment https://www.[facility].or g/mental-health/ [facility] OFFICE AT [facility] [address] [place] [address] [facility]IL[facility] OFFICE [address] [place] [address] [facility] OFFICE [address] [place] [address] [facility] OFFICE (at [facility]) [address] [place] [address] [facility] SYRINGE EXCHANGE PROGRAM & HIV SCREENING [address] [place] [address] [facility] EXCHANGE PROGRAM [address] [place] [address] Behavioral Health Urgent Care: [facility] Sites Counseling Indvidual and Group Medication Management Case Management benefits applications housing assistance Substance abuse treatment Medication assisted treatment Employment Services/ Job Training https://theCigital.org/ Recovery Resources [address] [place], [place] [address]: P: [phone] [address] [facility], [address], [place], [place] [address] P: [phone] Our services include: Addiction Mental Health Treatment Assessment Psychiatry Medical Care Employment Housing Drug and Alcohol Prevention HIV/AIDS Prevention https://www.recres.org/ [facility] [place] [address] [place] [address] [address] [place], [place] [address] [place] [address] [place] [address] [place] [address] [facility] [address] [place] [address] [place] [address] [place] [address] TMS Therapy/ Counseling Psychocological Testing for ADHD Medication Management In-Person/ Telemedicine https://www.Neptune Software AS.Action Online Entertainment/ivone ents-depression Memory & Psychological services [address] [address], [place] [address] Neuropsychological Testing For ADHD [email or web address] [facility] - Main Office [address] [place] [address] [address] Providing kbrr-gm-bjfl and telehealth services. Adult Case Management Community Education and Prevention Employment Outpatient Treatment - Counseling & Psychotherapy Psychiatric Services [email or web address] [facility] [address] [address] [place] [address] Nilsa [facility]) [address] [place] [address] Virtual Appointments! Now offering safe and convenient virtual client appointments to anyone in [place]! Individual Therapy Couples/Relationship Therapy Trauma/EMDR Therapy Art Therapy Play Therapy Delivery Engineer Support: Parenting Skills, Parent Child Interaction Therapy, Parent Interaction Therapy Meditation Dietitian/Local Company Refrigerated Truck Driver Services Group Therapy Yoga [email or web address]/ Nasreen Garcia [phone] Private Practice: Telehealth Only Specializes in EMDR for Trauma None MORNING SICKNESS IN by Nadeen Mancia M.D. for [employer] As you may already know, morning sickness can often be more appropriately called evening sickness or oiqgy-ybcgpl-qu-the-day sickness. While there are the dhaval few, [...] medication, Doxylamine, is currently marketed as an alxg-kzq-eiszvhj sleeping pill. Ask your practitioner if creating a vitamin B6/Doxylamine combination with cjwg-xyt-kndzefz medications would be safe for you. Prescription [...] The main active chemical in marijuana is mcyyt-6-ihjzzdbxtnhpixjfziuc (THC), which is what causes you to [...] smoke. Most professional organizations such as the [place] [employer] Pediatric[employer], the Academy of Medicine, and the [place] College of Obstetricians and Gynecologists advise that [...] . For more information, please see the MotherSingWho fact sheet Paternal Exposures and at [email or web address]/fact-she ets/yueiyzfc-mohkkfrrt-zochmnpev/ pdf/. From [facility]'s Tobacco Cessation website: Our comprehensive smoking cessation [...] help you with your financial plan. Contact [phone] for more information. [place] Tobacco Program Visit [email or web address] or call 0-285-RDER-NOW How SMOKING Affects Your and Your Baby [...] smoke. (This information is provided by the [facility] and is not intended to replace the medical advice of your doctor or health care provider. Please consult your health care provider for advice about a specific medical condition. For additional written health information, please call the Cancer Answer Line at [facility] Wednesday - Wednesday 8-4:30 for assistance: [phone]. Or visit [email or web address]/) documented in this encounter [facility] 07-27-2024 Note HNO ID: [id number] Author: RYLEE SCOTT APRN.SHERWIN Service: ? Author Type: Nurse Practitioner Type: Progress Notes Filed: 08/02/2024 11:39 Note Text: Afternoon Babysitter offered: Patient declines. INITIAL OB ASSESSMENT HPI: [...] harming myself h (more content not included)... [facility] 07-27-2024 History of Present illness Narrative Images from the original note were not included. Afternoon Babysitter offered: Patient declines. INITIAL OB ASSESSMENT HPI: [...] harming myself has occurred to me. 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 02/2020 1:4 titer, repeat 4 weeks. Patient reports [facility] so cannot test him. Kayla Robb MD [...] Outpatient Medications Medication Sig Dispense Refill vit 32-xhaw-tghul-dha (SELECT-OB+DHA) 29 mg iron-1 mg -250 mg [...] discussed with the Patient or Patient's Authorized Curtain Supervisor. As applicable, any other physician, advance practice provider, medical student, or other health professional student that will be observing or involved in the sensitive examination for educational or training purposes was discussed with the Patient or Authorized Curtain Supervisor. The Patient or Authorized Curtain Supervisor has agreed to proceed with the sensitive [...] plus performing a brief intervention. Rylee Scott APRN.INTEGRITY DIRECTOR ASSESSMENT: 29 year old at 6w2d wks gestational age PLAN: 1) Patient oriented to practice. Patient given new OB orientation folder. Discussed nutrition, folic acid supplementation, dietary guidelines, exercise, smoking, alcohol, caffeine, and drug use. Discussed gestational weight gain guidelines. Discussed routine OB labs including STD/HIV. Discussed how to access Your guide to a health and the Electric Pl[employer]. Discussed hemoglobin electrophoresis. Patient: Declines Reviewed midwifery and remedial masseur services that are available. Reviewed OLED-T program. Patient declines referral at this time. [...] weeks): [] Consent [] Contraception - [] Conflict Resolution Professional Third trimester (36-40 weeks): [] GBS [] Presentation - [] Scheduled [] yes - Hibiclens, pre-op instructions, CBC, T&S ordered [] no [] H&P Anti-E Isoimmunization Affecting in Second Trimester - 01/09/2016 Comment: April 28, 2022 05/24/22 Still 1:4. 02/2020 1:4 titer, repeat 4 weeks. Patient reports FOB in [facility]iary so cannot test him. Kayla Robb MD [...] History of Trauma - 08/02/2024 Comment: Declines [facility] - [employer] program. Rylee Scott APRN.CNP Depression - 02/16/2023 [...] past but it was mandated through the penitentiary and she stopped counseling since she has been out for about a year. She states she occasionally meets with her personal coach. Mental health resources provided. To update [...] NT scan between 12w0d and 13w6d gestation. Rylee Scott APRN.SHERWIN documented in this encounter [facility] 07-25-2024 Telephone encounter Note Patient called back and scheduled for 9:30am phone call on 07/27 with Angélica. Ynes Jones RN [facility] 07-25-2024 Miscellaneous Notes Patient called back and scheduled for 9:30am phone call on 07/27 with Angélica. Ynes Jones RN Left message for patient to return phone call to complete nurse intake questions for her upcoming appointment. Patient has an appointment with Rylee Scott for NOB appointment. I am available on 07/27 or you can transfer to [facility] documented in this encounter [facility] 07-25-2024 Telephone encounter Note Left message for patient to return phone call to complete nurse intake questions for her upcoming appointment. Patient has an appointment with Rylee Scott for NOB appointment. I am available on 07/27 or you can transfer to [facility] 07-05-2024 Note HNO ID: [id number] Author: GRICELDA PEPPER APRN.SHERWIN Service: ? Author Type: Nurse Practitioner Type: Progress Notes Filed: 07/05/2024 10:01 Note Text: This note was created using Reach Surgicalter. Subjective Calin Graf is a 29 year [...] BENZONATATE 100 MG CAPSULE Gricelda Pepper APRN.CNP [facility] 07-05-2024 History of Present illness Narrative This note was created using KitLocateriter. Subjective Calin Graf is a 29 year [...] Gricelda Pepper APRN.CNP documented in this encounter [facility] 03-15-2024 Telephone encounter Note Done. [facility] 03-15-2024 Miscellaneous Notes Done. She also [...] review and advise. documented in this encounter [facility] 03-15-2024 Telephone encounter Note She also needs to schedule a follow-up/physical. Maria Guadalupe Rivers APRN.INTEGRITY DIRECTOR [facility] 03-15-2024 Telephone encounter Note Patient here at office requesting a letter in able to receive a new social security card. Letter must have name, , and OV within the last 2 years. ADELA: 02/16/2023 with Maria Guadalupe Rivers. Patient is wanting to wait and take letter today if possible. Please review and advise. [facility] 10-14-2023 History of Present illness Narrative This note was created using [employer]. Subjective Calin Graf is a 28 year [...] repeat 4 weeks. Patient reports FOB [place] [facility] so cannot test him. Kayla Robb MD [...] KJ April 29, 2016 Still positive, retreat. aKyla Robb MD PAST SURGICAL HISTORY Procedure Laterality [...] Alcohol/Drug Mother ETOH Arthritis Mother Heart Mother LA Hypertension Mother Alcohol/Drug Father ETOH Emphysema Paternal [...] swab for COVID/influenza/rsv Andreea Nuñez TEACHING PROVIDER (Physician/PA/SANDSTONE SPLITTER) NOTE OF PERSONAL INVOLVEMENT IN CARE: I have personally seen and examined the patient and performed the medical decision-making components. I have reviewed the Advanced Practice Registered Nurse (SANDSTONE SPLITTER) Student's documentation and verified the findings in the note as written. Any additions or changes are noted in bold/italics. Signature: Lorena Singh Date: 10/14/2023 Time: 9:13 AM documented in this encounter [facility] 08-04-2023 History of Present illness Narrative This note was created using VoxPopMe. Subjective Calin Graf is a 28 year [...] repeat 4 weeks. Patient reports [place]OB [place] [facility] so cannot test him. Kayla Robb MD [...] 2013 Depression Ecstasy abuse (HCC) 04/22/2016 +UDS [place] 04/21/16 Family history of cystic fibrosis 01/07/2016 [...] Alcohol/Drug Mother ETOH Arthritis Mother Heart Mother [place] Hypertension Mother Alcohol/Drug Father ETOH Emphysema Paternal [...] evaluation. WELLINGTON Schneider documented in this encounter [facility] 01-20-2023 Miscellaneous Notes Reason: Patient calling with concerns on what medication she can take for a headache while taking medications prescribed my her oracle applications developer. Outcome: Patient offered triage and patient declined Conferenced to [facility] for further advisement. GO TO THE EMERGENCY ROOM OR CALL 911 IF: * You develop any new symptoms If you have any questions, you can call Nurse ornamental ironworking supervisor back. documented in this encounter [facility] 01-08-2023 Miscellaneous Notes ok to schedule. Thanks. Kayla Robb MD See mychart message from earlier today. Pt is wanting to discuss Nexplanon. Message left about scheduling appt. Tonya Michelle LPN Patient viewed Keep Me Certified message that a new control medication was [...] Ynes Jones RN documented in this encounter [facility] 01-07-2023 Miscellaneous Notes Pt notified of reason for medication change. Tonya Michelle LPN documented in this encounter [facility] 01-05-2023 Miscellaneous Notes Approved through Medicaid [...] Sarai Sanches CMA documented in this encounter [facility] 12-23-2022 Miscellaneous Notes 2nd request to patient to obtain card copy with [employer], to submit for Hep C tx Sarai Sanches CMA documented in this encounter [facility] 12-02-2022 Miscellaneous Notes Last seen 09/09/22. PCP appointment to establish is not until February. Requested Prescriptions Pending Prescriptions Disp Refills escitalopram oxalate (LEXAPRO) 10 mg tablet 30 tablet 1 Sig: Take 1 tablet by mouth once daily. Lachelle Bean RN documented in this encounter [facility] 11-27-2022 History of Present illness Narrative [...] Int J Clin Exp Med. 2015 Jun 15;8(10):39011-88. PMID: 22459099; PMCID: [id number]. Ana Harris, David LONGORIA, Demetrice Harris, Constance F, Lukasz J, Chester O, Jenae F, Yuliana M, Maverick G, Jones A, Josiah E, Judd L, Korin G, Fernando A, Vianney U, Vera S, Lauren P, José Luis V, de Bhavna V, Beena M, Michelle LONG. Refining the Baveno elastography criteria for the definition of compensated advanced chronic liver disease. J Hepatol. 2020;74(5):7571-3394. doi: 10.1016/j.jhep.2020.11.050. Epub 2019Aug 14. PMID: 61707173. documented in this encounter [facility] 10-27-2022 History of Present illness Narrative [...] 2022 1:10 PM documented in this encounter [facility] 09-09-2022 History of Present illness Narrative VISIT Calin Graf is a 27 year old year old here for visit. Delivery Summary: ROS/ Recovery: Feeding: Bottle feeding problems: n/a Menses since delivery: light flow Menstrual pattern prior to : Regular periods [place] since delivery: Not resumed Depression: denies symptoms [...] Alcohol/Drug Mother ETOH Arthritis Mother Heart Mother [place] Hypertension Mother Alcohol/Drug Father ETOH Emphysema Paternal [...] external genitalia normal, normal Bartholin's glands, urethra, Clark's glands, no vulvar lesions, no cervical lesions, [...] Kayla Robb MD documented in this encounter [facility] 08-12-2022 History of Present illness Narrative [...] Kayla Robb MD documented in this encounter [facility] 08-06-2022 History of Present illness Narrative Patient delivered via by Dr. Robb on 08/05/22 at [facility]. See OB history. Ynes Jones RN documented in this encounter [facility] 07-29-2022 Miscellaneous Notes RR- VB No. [...] Kayla Robb M.D. documented in this encounter [facility] 07-29-2022 Instructions Beckie Duque MA - 07/29/2022 3:14 PM EST SEQUENTIAL SCREENINGS The [facility] offers sequential screenings for women who [...] It will require an appointment with our signal maintenance technician. This is not an ultrasound performed [...] the above symptoms, contact our office at [phone] and ask to speak with a nurse. After hours, you can call [employer] registry at [phone] OR call [facility] at [phone] and ask to have the doctor consumer educator paged. If you consider this an emergency, dial 9-1-1 or go to your nearest emergency department. NEED HELP? Are you dealing with a violent or abusive relationship? Are you a victim of rape or sexual assult? Call [facility] ([place]) 24 hour Crisis Hotline: 823.753.9691 or 976-898-7400. MANUAL Your Guide to a Healthy manual is now on-line. Visit [email or web address] ncyGuide to download your free copy documented in this encounter [facility] 07-21-2022 Miscellaneous Notes KJ - VB [...] Alfredo Benitez MD documented in this encounter [facility] 07-21-2022 Gracy Hackett Ma - 07/21/2022 8:59 AM EST SEQUENTIAL SCREENINGS The [facility] offers sequential screenings for women who [...] It will require an appointment with our signal maintenance technician. This is not an ultrasound performed [...] the above symptoms, contact our office at [phone] and ask to speak with a nurse. After hours, you can call doctors registry at [phone] OR call [facility] at [phone] and ask to have the doctor consumer educator paged. If you consider this an emergency, dial 9-6-2 or go to your nearest emergency department. NEED HELP? Are you dealing with a violent or abusive relationship? Are you a victim of rape or sexual assult? Call [facility] ([place]) 24 hour Crisis Hotline: 541.724.8116 or 659-564-4760. MANUAL Your Guide to a Healthy manual is now on-line. Visit [email or web address]/[email or web address] ncyGuide to download your free copy documented in this encounter [facility] 07-07-2022 Miscellaneous Notes RR- VB No. [...] Kayla Robb M.D. documented in this encounter [facility] 07-07-2022 Instructions Sumi Buckner Ma - 07/07/2022 9:30 AM EDT SEQUENTIAL SCREENINGS The [facility] offers sequential screenings for women who [...] It will require an appointment with our signal maintenance technician. This is not an ultrasound performed [...] the above symptoms, contact our office at [phone] and ask to speak with a nurse. After hours, you can call doctors registry at [phone] OR call [facility] at [phone] and ask to have the doctor consumer educator paged. If you consider this an emergency, dial 5-9-6 or go to your nearest emergency department. NEED HELP? Are you dealing with a violent or abusive relationship? Are you a victim of rape or sexual assult? Call [facility] ([facility] 24 hour Crisis Hotline: 639.394.7688 or 332-472-1607. MANUAL Your Guide to a Healthy manual is now on-line. Visit [email or web address]/HealthyPregna ncyGuide to download your free copy documented in this encounter [facility] 06-26-2022 Miscellaneous Notes Utrasound reviewed. No abnormalities identified. Follow up as clinically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 Limitations of screening tests discussed withthe patient. Kayla Robb MD documented in this encounterKettering [facility] Hospital06-14-2022 Instructions* Patient Instructions* Sumi Buckner Ma - 02/17/2022 11:18 AM EDT SEQUENTIAL SCREENINGS The [facility] offers sequential screenings for women who [...] testing. It will require an appointment withour signal maintenance technician. This is not an ultrasound performed [...] the above symptoms, contact our office at [phone] and ask to speak with anurse. After hours, you can call doctors registry at [phone] OR call [facility] at [phone] ask to have the doctor consumer educator paged. If you consider this an emergency, dial 9-1-3 or go to your nearest emergency department. NEED HELP? Are you dealing with a violent or abusive relationship? Are you a victim of rape or sexual assult? Call [facility] ([facility] 24 hour Crisis Hotline: 675.582.8201 or 923-618-8633. MANUAL Your Guide to a Healthy manual is now on-line. Visit [email or web address] to download your free copy SEQUENTIAL TESTING PROCESS Sequential Screen First Trimester Today you are currently: 13w2d weeks 02/17/2022: Ultrasound and blood test. Sequential Screen Second Trimester (16-17 Weeks Gestation) When you are called with your results, the nurse will give the optimal draw dates for the Sequential screen second trimester. Blood testing can be done at any [facility] lab. Please report to the any division service manager office front desk lead for the Sequential Part 2 requisition and [...] medicine office, for east side please call [phone] or for the West side call [phone] and ask for the the nurse. Thank you. documented in this encounterKet[facility]06-07-2022 Miscellaneous Notes* Telephone Encounter - Shoshana Guido RN - 02/10/2022 10:24 AM EDT Initial risk assessment form submitted 02/10/22 Shoshana Guido RN documented in this encounterKet[facility]05[facility]22 Miscellaneous Notes* Telephone Encounter - Lachelle [...] trichomonas Alfredo Benitez MD documented in this encounterKettering [facility] Hospital05-17-2022 Nurse Note* Lachelle Bean RN - 01/20/2022 2:16 PM EDT The patient is here for an injection of Rocephin, reconstituted with 1 ml of Xylocaine 1% without Epinephrine (mfgr: [employer], Lot #: [id number], Exp. date: 03/30). Dose: 500mg Amount wasted: none. 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 Lot #: [id number] Expiration Date: 10/2023 The date due for the next injection is n/a Lachelle Bean RN documented in this encounterKettering [facility]05-17-2022 Miscellaneous Notes* Quick Notes - Alfredo [...] rx soledad Benitez MD documented in this encounterKettering [facility] Hospital05-17-2022 Instructions* Patient Instructions* Sumi Buckner Ar - 01/20/2022 1:14 PM EDT SEQUENTIAL SCREENINGS The [facility] offers sequential screenings for women who [...] testing. It will require an appointment withour signal maintenance technician. This is not an ultrasound performed [...] the above symptoms, contact our office at [phone] and ask to speak with anurse. After hours, you can call doctors registry at [phone] OR call [facility] at [phone] ask to have the doctor consumer educator paged. If you consider this an emergency, dial 9--1 or go to your nearest emergency department. NEED HELP? Are you dealing with a violent or abusive relationship? Are you a victim of rape or sexual assult? Call [facility] ([place]) 24 hour Crisis Hotline: 397.971.5986 or 038-577-9268. MANUAL Your Guide to a Healthy manual is now on-line. Visit [email or web address] to download your free copy documented in this encounterKet[facility] Hospital05-13-2022 Miscellaneous Notes* Telephone Encounter - Lachelle [...] in. Kayla Robb MD documented in this encounterKettering [facility] Hospital04-29-2022 History of Present illness Narrative* Kayla [...] No Multivitamin with Folic acid: Yes Occupation: [id number] Cheondoism or heritage: No Would refuse blood transfusion [...] antibody Kayla Robb MD documented in this encounterKettering [facility] Hospital04-29-2022 Instructions* Patient Instructions* Vicki Garcia LPN - 01/02/2022 10:24 AM EDT Please select the following link to access the [facility] Your Guide to a Healthy . [email or web address] documented in this encounterKettering [facility] Hospital04-28-2022 Miscellaneous Notes* Telephone Encounter - Ynes [...] attempts for telephone PNOB documented in this encounterKettering [facility] Hospital04-19-2022 Miscellaneous Notes* Telephone Encounter - Ynes Jones RN - 12/23/2021 1:08 PM EDT PNOB scheduled. Ynes Jones RN * Telephone Encounter - Makayla Workman RN - 12/23/2021 12:59 PM EDT Left message for patient to return phone call. Patient has an appointment with Dr Robb for NOB appointment. Please schedule PNOB appointment. 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 Pt is in retirement and and due to get out in [...] PRN problems. Ultrasound ordered by Sylvie Champion DELIVERY ENGINEER.TKRN Quit smoking 01/06/2016 04/29/2016 Overview: 03/27/16: pt still smoking cigarettes 01/06/2016Pt recently quit smoking 12/24/2015. 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 Pt is in retirement and and due to get out in [...] PRN problems. Ultrasound ordered by Sylvie Champion DELIVERY ENGINEER.TKRN Quit smoking 01/06/2016 04/29/2016 Overview: 03/27/16: pt still smoking cigarettes 01/06/2016Pt recently quit smoking 12/24/2015. Discussed risks of smoking during and advised pt to continue not smoking.TKRN documented as of this encounter (statuses as of 01/20/2022) [facility]08-[facility]2016 History of Past illness Narrative* Problem [...] care prior to today. Pt is in retirement and and due to get out in [...] PRN problems. Ultrasound ordered by Sylvie Champion DELIVERY ENGINEER.TKRN Quit smoking 01/06/2016 04/29/2016 Overview: 03/27/16: pt still smoking cigarettes 01/06/2016Pt recently quit smoking 12/24/2015. 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 Pt is in retirement and and due to get out in [...] PRN problems. Ultrasound ordered by Sylvie Champion DELIVERY ENGINEER.TKRN Quit smoking 01/06/2016 04/29/2016 Overview: 03/27/16: pt still smoking cigarettes 01/06/2016Pt recently quit smoking 12/24/2015. 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 Pt is in retirement and and due to get out in [...] PRN problems. Ultrasound ordered by Sylvie Champion DELIVERY ENGINEER.TKRN Quit smoking 01/06/2016 04/29/2016 Overview: 03/27/16: pt still smoking cigarettes 01/06/2016Pt recently quit smoking 12/24/2015. 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 Pt is in retirement and and due to get out in [...] PRN problems. Ultrasound ordered by Sylvie Champion DELIVERY ENGINEER.TKRN Quit smoking 01/06/2016 04/29/2016 Overview: 03/27/16: pt still smoking cigarettes 01/06/2016Pt recently quit smoking 12/24/2015. 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 Pt is in retirement and and due to get out in [...] PRN problems. Ultrasound ordered by Sylvie Champion DELIVERY ENGINEER.TKRN Quit smoking 01/06/2016 04/29/2016 Overview: 03/27/16: pt still smoking cigarettes 01/06/2016Pt recently quit smoking 12/24/2015. 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 Pt is in retirement and and due to get out in [...] PRN problems. Ultrasound ordered by Sylvie Champion DELIVERY ENGINEER.TKRN Quit smoking 01/06/2016 04/29/2016 Overview: 03/27/16: pt still smoking cigarettes 01/06/2016Pt recently quit smoking 12/24/2015. 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 Pt is in retirement and and due to get out in [...] PRN problems. Ultrasound ordered by Sylvie Champion DELIVERY ENGINEER.TKRN Quit smoking 01/06/2016 04/29/2016 Overview: 03/27/16: pt still smoking cigarettes 01/06/2016Pt recently quit smoking 12/24/2015. 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 Pt is in retirement and and due to get out in [...] PRN problems. Ultrasound ordered by Sylvie Champion DELIVERY ENGINEER.TKRN Quit smoking 01/06/2016 04/29/2016 Overview: 03/27/16: pt still smoking cigarettes 01/06/2016Pt recently quit smoking 12/24/2015. 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 Pt is in retirement and and due to get out in [...] PRN problems. Ultrasound ordered by Sylvie Champion DELIVERY ENGINEER.TKRN Quit smoking 01/06/2016 04/29/2016 Overview: 03/27/16: pt still smoking cigarettes 01/06/2016Pt recently quit smoking 12/24/2015. 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 Pt is in retirement and and due to get out in [...] PRN problems. Ultrasound ordered by Sylvie Champion DELIVERY ENGINEER.TKRN Quit smoking 01/06/2016 04/29/2016 Overview: 03/27/16: pt still smoking cigarettes 01/06/2016Pt recently quit smoking 12/24/2015. 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 Pt is in retirement and and due to get out in [...] PRN problems. Ultrasound ordered by Sylvie Champion DELIVERY ENGINEER.TKRN Quit smoking 01/06/2016 04/29/2016 Overview: 03/27/16: pt still smoking cigarettes 01/06/2016Pt recently quit smoking 12/24/2015. 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 Pt is in retirement and and due to get out in [...] PRN problems. Ultrasound ordered by Sylvie Champion DELIVERY ENGINEER.TKRN Quit smoking 01/06/2016 04/29/2016 Overview: 03/27/16: pt still smoking cigarettes 01/06/2016Pt recently quit smoking 12/24/2015. 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 Pt is in retirement and and due to get out in [...] PRN problems. Ultrasound ordered by Sylvie Champion DELIVERY ENGINEER.TKRN Quit smoking 01/06/2016 04/29/2016 Overview: 03/27/16: pt still smoking cigarettes 01/06/2016Pt recently quit smoking 12/24/2015. 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 Pt is in retirement and and due to get out in [...] PRN problems. Ultrasound ordered by Sylvie Champion DELIVERY ENGINEER.TKRN Quit smoking 01/06/2016 04/29/2016 Overview: 03/27/16: pt still smoking cigarettes 01/06/2016Pt recently quit smoking 12/24/2015. 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 Pt is in retirement and and due to get out in [...] PRN problems. Ultrasound ordered by Sylvie Champion DELIVERY ENGINEER.TKRN Quit smoking 01/06/2016 04/29/2016 Overview: 03/27/16: pt still smoking cigarettes 01/06/2016Pt recently quit smoking 12/24/2015. 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 Pt is in retirement and and due to get out in [...] PRN problems. Ultrasound ordered by Sylvie Champion DELIVERY ENGINEER.TKRN Quit smoking 01/06/2016 04/29/2016 Overview: 03/27/16: pt still smoking cigarettes 01/06/2016Pt recently quit smoking 12/24/2015. 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 Pt is in retirement and and due to get out in [...] PRN problems. Ultrasound ordered by Sylvie Champion DELIVERY ENGINEER.TKRN Quit smoking 01/06/2016 04/29/2016 Overview: 7/22/16: pt still smoking cigarettes 01/06/2016Pt recently quit smoking 12/24/2015. 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 Pt is in retirement and and due to get out in [...] PRN problems. Ultrasound ordered by Sylvie Champion DELIVERY ENGINEER.TKRN Quit smoking 01/06/2016 04/29/2016 Overview: 03/27/16: pt still smoking cigarettes 01/06/2016Pt recently quit smoking 12/24/2015. 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 Pt is in retirement and and due to get out in [...] of this encounter (statuses as of 07/21/2022) [facility] History of Past illness Narrative* Problem [...] care prior to today. 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 Pt is in retirement and and due to get out in [...] PRN problems. Ultrasound ordered by Sylvie Champion DELIVERY ENGINEER.TKRN Quit smoking 01/06/2016 04/29/2016 Overview: 03/27/16: pt still smoking cigarettes 01/06/2016Pt recently quit smoking 12/24/2015. 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 Pt is in retirement and and due to get out in [...] PRN problems. Ultrasound ordered by Sylvie Champion DELIVERY ENGINEER.TKRN Quit smoking 01/06/2016 04/29/2016 Overview: 03/27/16: pt still smoking cigarettes 01/06/2016Pt recently quit smoking 12/24/2015. 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 Pt is in retirement and and due to get out in [...] PRN problems. Ultrasound ordered by Sylvie Champion DELIVERY ENGINEER.TKRN Quit smoking 01/06/2016 04/29/2016 Overview: 03/27/16: pt still smoking cigarettes 01/06/2016Pt recently quit smoking 12/24/2015. 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 Pt is in retirement and and due to get out in [...] PRN problems. Ultrasound ordered by Sylvie Champion DELIVERY ENGINEER.TKRN Quit smoking 01/06/2016 04/29/2016 Overview: 03/27/16: pt still smoking cigarettes 01/06/2016Pt recently quit smoking 12/24/2015. Discussed risks of smoking during and advised pt to continue not smoking.TKRN documented as of this encounter (statuses as of 08/12/2022) [facility] History of Past illness Narrative* Problem Noted Date Resolved Date Chlamydia infection, current 6 01/14/2016 Overview: 01/14/16 - needs JENNY & 3rd trimester screening - [facility] Quit smoking 01/06/2016 04/29/2016 Overview: 03/27/16: pt still smoking cigarettes 01/06/2016Pt recently quit smoking 12/24/2015. Discussed risks of smoking during and advised pt to continue not smoking.TKRN documented as of this encounter (statuses as of 12/23/2021) [facility] History of Past illness Narrative* Problem Noted Date Resolved Date Chlamydia infection, current 6 01/14/2016 Overview: 01/14/16 - needs JENNY & 3rd trimester screening - KJ Quit smoking 01/06/2016 04/29/2016 Overview: 03/27/16: pt still smoking cigarettes 01/06/2016Pt recently quit smoking 12/24/2015. Discussed risks of smoking during and advised pt to continue not smoking.TKRN documented as of this encounter (statuses as of 01/01/2022) [facility] noteNo assessment information availableWEast [facility] Work Phone: Evaluation [facility]* Diagnosis Encounter [...] drug abuse, unspecified [facility]* Diagnosis Encounter for supervision of normal in multigravida in first trimester- Primary Uncertain dates, antepartum, first trimester Gonorrhea affecting in first trimester Screen for STD (sexually transmitted disease) Screening examination for venereal disease documented [facility]* Diagnosis Screen for STD (sexually transmitted disease)- Primary Screening examination for venereal disease 13 weeks gestation of state, incidental Drug use disorder Other, mixed, or unspecified nondependent drug abuse, unspecified Supervision of other high risk pregnancies, first trimester Viral hepatitis complicating , second trimester Encounter for screening of mother Unspecified screening documented [facility]* Diagnosis Encounter for (NT) nuchal translucency scan- Primary Other specified screening 13 weeks gestation of state, incidental [facility] Diagnosis 17 weeks gestation of - Primary state, incidental High-risk in second trimester 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, single or unspecified fetus [facility]* Diagnosis Encounter for anatomic survey- Primary 19 weeks gestation of state, incidental [facility]* Diagnosis High-risk in second trimester- Primary 22 weeks gestation of state, incidental 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, single or unspecified fetus documented [facility]* Diagnosis Onset Date Resolution Status Encounter for screening labo ratory testing for COVID-19 virus acute [facility] Work Phone: Evaluation note* Diagnosis 27 weeks gestation of - Primary state, incidental 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, single or unspecified fetus High-risk in second trimester Need for Tdap vaccination Need for prophylactic vaccination with combined [id number] (DTP) vaccine documented [facility]* Diagnosis 29 weeks gestation of - Primary state, incidental Supervision of high risk in third trimester Unspecified high-risk 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, single or unspecified fetus [facility]* Diagnosis Supervision of high risk in third trimester- Primary Unspecified high-risk 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, single or unspecified fetus 31 weeks gestation of state, incidental [facility]* Diagnosis 31 weeks gestation of - Primary state, incidental High-risk in third trimester Anti-E isoimmunization affecting in second trimester, single or unspecified fetus Chronic hepatitis C without hepatic coma (HCC) Chronic hepatitis C without mention of hepatic coma [facility] Diagnosis Uterine size-date discrepancy, third trimester [O26.843 (ICD-10-CM)]- Primary 29 weeks gestation of state, incidental Supervision of high risk in third trimester Unspecified high-risk 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, single or unspecified fetus 31 weeks gestation of state, incidental [facility]* Diagnosis 33 weeks gestation of - Primary state, incidental High-risk in third trimester [facility]* Diagnosis Anti-E 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 trimester, single or unspecified fetus- Primary High-risk in third trimester 33 weeks gestation of state, incidental [facility]* Diagnosis Anti-E isoimmunization affecting in second trimester, single or unspecified fetus- Primary High-risk in third trimester 34 weeks gestation of state, incidental [facility]* Diagnosis Anti-E isoimmunization affecting in second trimester, single or unspecified fetus- Primary High-risk in third trimester 35 weeks gestation of state, incidental [facility]* Diagnosis Supervision of high risk in third trimester- Primary Unspecified high-risk 35 weeks gestation of state, incidental [facility]* Diagnosis High-risk in third trimester Anti-E isoimmunization affecting in second trimester, single or unspecified fetus [facility]* Diagnosis 36 weeks gestation of - Primary state, incidental Supervision of high risk in third trimester Unspecified high-risk [facility]* Diagnosis Anti-E isoimmunization affecting in second trimester, single or unspecified fetus- Primary High-risk in third trimester 36 weeks gestation of state, incidental [facility]* Diagnosis Onset Date Resolution Status 31 weeks gestation of acute History of labor acu te Pelvic cramping acute Round ligament pain acute 37 weeks gestation of acute Anti-E isoimmunization affec ting in third trimester acute Hepatitis C, chronic, maternal, antepartum acute High risk multigravida acute (spontaneous vaginal delivery) acute [facility] Work Phone: Evaluation note* Diagnosis Routine follow-up- Primary Chronic active hepatitis (HCC) Other chronic hepatitis documented [facility]* Diagnosis care and examination- Primary Routine follow-up Encounter for BCP ( control pills) initial prescription General counseling for prescription of oral contraceptives [facility] Diagnosis Chronic hepatitis C without hepatic coma (HCC)- Primary Chronic hepatitis C without mention of hepatic coma [facility] Diagnosis Chronic hepatitis C without hepatic coma (HCC)- Primary Chronic hepatitis C without mention of hepatic coma [facility] Chronic hepatitis C with hepatic coma (HCC)- Primary Chronic hepatitis C with hepatic coma Chronic hepatitis C without hepatic coma (HCC) Chronic hepatitis C without mention of hepatic coma [facility] Diagnosis 31 weeks gestation of state, incidental High-risk in third trimester 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, single or unspecified fetus Chronic hepatitis C without hepatic coma (HCC) Chronic hepatitis C without mention of hepatic coma [facility] Diagnosis Nexplanon insertion- Primary Insertion of implantable subdermal contraceptive [facility]* Diagnosis Chronic hepatitis C without hepatic coma (HCC) Chronic hepatitis C without mention of hepatic coma [facility] Diagnosis Sinobronchitis- Primary Unspecified sinusitis (chronic) URI, acute Acute upper respiratory infections of unspecified site [facility]* Diagnosis Upper respiratory tract infection, unspecified type- Primary [facility]* Diagnosis Acute cough- Primary [facility]* Diagnosis Encounter for supervision of high [...] and vomiting during documented in this encounter [facility]* Diagnosis Encounter for screening for malformation using ultrasound- Primary 12 weeks gestation of state, incidental Encounter for supervision of high risk in first trimester, antepartum- Primary 12 weeks gestation of state, incidental Nausea and vomiting during Anti-E isoimmunization affecting in second trimester, single or unspecified fetus documented in this encounter [facility] note* Diagnosis Encounter for supervision of high risk in first trimester, antepartum- Primary 12 weeks gestation of state, incidental Nausea and vomiting during Anti-E isoimmunization affecting in second trimester, single or unspecified fetus * Assessment & Plan Note - Kayla Robb MD - 09/13/2024 1:46 PM EST Associated Problem(s): Encounter for supervision of high risk in first trimester, antepartum Orders: vit [id number]-[id number]-[id number]-dha (SELECT-OB+DHA) 29 mg iron-1 mg -250 mg; [...] in second trimester documented in this encounter [facility] note* Diagnosis Encounter for supervision of high risk in first trimester, antepartum- Primary 12 weeks gestation of state, incidental Nausea and vomiting during Anti-E isoimmunization affecting in second trimester, single or unspecified fetus Encounter for supervision of high risk in first trimester, antepartum documented in this encounter [facility] note* Diagnosis Encounter for supervision of high risk in first trimester, antepartum- Primary 12 weeks gestation of state, incidental Nausea and vomiting during Anti-E isoimmunization affecting in second trimester, single or unspecified fetus Encounter for supervision of high risk in first trimester, antepartum- Primary documented in this encounter [facility] note* Diagnosis Encounter for supervision of high risk in first trimester, antepartum- Primary 12 weeks gestation of state, incidental Nausea and vomiting during Anti-E isoimmunization affecting in second trimester, single or unspecified fetus Bronchopneumonia- Primary Bronchopneumonia, organism unspecified documented in this encounter [facility] note* Diagnosis Encounter for supervision of high [...] History of depression documented in this encounter [facility] note* Diagnosis Encounter for supervision of high [...] ANTIBODY SCREEN; Future [facility]* Diagnosis Encounter for supervision of high [...] of state, incidental documented in this encounter [facility] note* Diagnosis Encounter for supervision of high [...] History of depression [facility] Diagnosis Encounter for supervision of [...] EDT Associated Problem(s): History of depression 11/22/2024 [facility] Pt reports that her relationship is currently [...] Family history of congenital heart defect 11/22/2024 [facility] No cardiac concerns identified on US. Lachelle Hickman MD * Assessment & Plan Note - Lachelle Hickman MD - 11/22/2024 4:33 PM EDT Associated Problem(s): History of drug abuse (HCC) 11/22/2024 [facility] Pt reports sobriety for three years. Has stopped marijuana. Hep C neg RNA. Meth was drug of choice.No hx of chest pain or endocarditis. Check EKG for any evidence of old LA given meth hx. Recommend checking tox screen at delivery to prove to children's service that she is negative. Pt has a history with DCF[employer] and is aware that they may be involved at delivery. 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 Calin Graf is a 29 year old [id number] here to discuss anti E maternal antibodies, [...] Lachelle Hickman MD [facility] Diagnosis Encounter for supervision of [...] fetus 5- Primary documented in this encounter [facility]* Diagnosis Encounter for supervision of high [...] unspecified fetus- Primary documented in this encounter [facility] note* Diagnosis Encounter for supervision of high risk in first trimester, antepartum (HCC)- Primary 12 weeks gestation of ([facility]) state, incidental Nausea and vomiting during (HCC) Anti-E 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, single or unspecified fetus (HCC) Supervision of high risk in second trimester ([facility])- Primary Unspecified high-risk 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, single or unspecified fetus (HCC) 20 weeks gestation of ([facility]) state, incidental Hx of intravenous drug use, in remission- Primary Other, mixed, or unspecified nondependent drug abuse, in remission Maternal care for isoimmunization, second trimester, single gestation (HCC) 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, single or unspecified fetus (HCC) History of drug abuse ([facility]) Other, mixed, or unspecified nondependent drug abuse, in remission Family history of congenital heart defect Family history of congenital anomalies History of depression Supervision of high risk in second trimester ([facility])- Primary Unspecified high-risk 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, single or unspecified fetus (HCC) Tobacco smoking complicating in second trimester ([facility]) Tobacco use disorder complicating , childbirth, or the puerperium, antepartum condition or complication 24 weeks gestation of ([facility]) state, incidental 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 dopplers and close surveillance Orders: GESTATIONAL GLUCOSE SCREEN, 1-HOUR, 50 GRAM, NON-FASTING; Future SYPHILIS TREPONEMAL W/REFLEX; Future ANEMIA REFLEX PANEL; Future [facility] Diagnosis Encounter for supervision of high risk in first trimester, antepartum ([facility])- Primary 12 weeks gestation of ([facility]) state, incidental Nausea and vomiting during ([facility]) Anti-E isoimmunization affecting in second trimester, single or unspecified fetus (HCC) Supervision of high risk in second trimester ([facility])- Primary Unspecified high-risk 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, single or unspecified fetus (HCC) 20 weeks gestation of ([facility]) state, incidental Hx of intravenous drug use, in remission- Primary Other, mixed, or unspecified nondependent drug abuse, in remission Maternal care for isoimmunization, second trimester, single gestation ([facility]) Anti-E isoimmunization affecting in second trimester, single or unspecified fetus (HCC) History of drug abuse (HCC) Other, mixed, or unspecified nondependent drug abuse, in remission Family history of congenital heart defect Family history of congenital anomalies History of depression Encounter for ultrasound to check growth ([facility])- Primary Encounter for routine screening for malformation using ultrasonics Maternal care for isoimmunization, second trimester, single gestation ([facility]) Supervision of high risk in second trimester ([facility]) Unspecified high-risk 24 weeks gestation of ([facility]) state, incidental Supervision of high risk in second trimester ([facility])- Primary Unspecified high-risk Anti-E isoimmunization affecting in second trimester, single or unspecified fetus (HCC) Tobacco smoking complicating in second trimester (HCC) Tobacco use disorder complicating , childbirth, or the puerperium, antepartum condition or complication 24 weeks gestation of ([facility]) state, incidental Anti-E isoimmunization affecting in second trimester, single or unspecified fetus ([facility])- Primary documented in this encounter [facility]* Diagnosis Encounter for supervision of high risk in first trimester, antepartum ([facility])- Primary 12 weeks gestation of ([facility]) state, incidental Nausea and vomiting during ([facility]) Anti-E isoimmunization affecting in second trimester, single or unspecified fetus ([facility]) Supervision of high risk in second trimester ([facility])- Primary Unspecified high-risk Anti-E isoimmunization affecting in second trimester, single or unspecified fetus (HCC) 20 weeks gestation of ([facility]) state, incidental Hx of intravenous drug use, in remission- Primary Other, mixed, or unspecified nondependent drug abuse, in remission Maternal care for isoimmunization, second trimester, single gestation ([facility]) Anti-E isoimmunization affecting in second trimester, single or unspecified fetus (HCC) History of drug abuse ([facility]) Other, mixed, or unspecified nondependent drug abuse, in remission Family history of congenital heart defect Family history of congenital anomalies History of depression Supervision of high risk in second trimester ([facility])- Primary Unspecified high-risk Anti-E isoimmunization affecting in second trimester, single or unspecified fetus (HCC) Tobacco smoking complicating in second trimester ([facility]) Tobacco use disorder complicating , childbirth, or the puerperium, antepartum condition or complication 24 weeks gestation of ([facility]) state, incidental 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 Awaiting antigen testing results. 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 Further planning after antigen status known. Continue MCA dopplers for now. Pt should have an inperson MFM visit at 34-36 weeks for delivery planning. Pt states that her general OB wants her to deliver at [place] as [place] is not idea for an baby affected by isoimmunization. 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 trimester, single or unspecified fetus (HCC) 20 weeks gestation of ([facility]) state, incidental Hx of intravenous drug use, in remission- Primary Other, mixed, or unspecified nondependent drug abuse, in remission Maternal care for isoimmunization, second trimester, single gestation ([facility]) Anti-E isoimmunization affecting in second trimester, single or unspecified fetus (HCC) History of drug abuse (HCC) Other, mixed, or unspecified nondependent drug abuse, in remission Family history of congenital heart defect Family history of congenital anomalies History of depression Supervision of high risk in second trimester ([facility])- Primary Unspecified high-risk Anti-E isoimmunization affecting [...] do growth scans [facility] Diagnosis Encounter for supervision of [...] care for isoimmunization, second trimester, single gestation ([facility]) Anti-E isoimmunization affecting in second trimester, single or unspecified fetus ([facility]) History of drug abuse (HCC) Other, mixed, or unspecified nondependent drug abuse, in remission Family history of congenital heart defect Family history of congenital anomalies History of depression Supervision of high risk in second trimester ([facility])- Primary Unspecified high-risk Anti-E 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 trimester, single or unspecified fetus (HCC) Tobacco smoking complicating in second trimester ([facility]) Tobacco use disorder complicating , childbirth, or the puerperium, antepartum condition or complication 24 weeks gestation of ([facility]) state, incidental Anti-E isoimmunization affecting in second trimester, single or unspecified fetus ([facility])- Primary Maternal care for isoimmunization, second trimester, single gestation ([facility])- Primary Supervision of high risk in second trimester ([facility]) Unspecified high-risk 26 weeks gestation of ([facility]) state, incidental Supervision of high risk in second trimester ([facility])- Primary Unspecified high-risk 26 weeks gestation of ([facility]) state, incidental 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, single or unspecified fetus ([facility]) Tobacco smoking complicating in second trimester ([facility]) Tobacco use disorder complicating , childbirth, or the puerperium, antepartum condition or complication General counseling and advice for contraceptive management Other general counseling and advice for contraceptive management [facility] Diagnosis Encounter for supervision of high risk in first trimester, antepartum ([facility])- Primary 12 weeks gestation of ([facility]) state, incidental Nausea and vomiting during ([facility]) 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, single or unspecified fetus ([facility]) Supervision of high risk in second trimester ([facility])- Primary Unspecified high-risk 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, single or unspecified fetus ([facility]) 20 weeks gestation of ([facility]) state, incidental Hx of intravenous drug use, in remission- Primary Other, mixed, or unspecified nondependent drug abuse, in remission Maternal care for isoimmunization, second trimester, single gestation ([facility]) 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, single or unspecified fetus (HCC) History of drug abuse (HCC) Other, mixed, or unspecified nondependent drug abuse, in remission Family history of congenital heart defect Family history of congenital anomalies History of depression 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, second trimester, not applicable or unspecified fetus ([facility])- Primary care, subsequent , second trimester ([facility]) Supervision of high risk in second trimester ([facility])- Primary Unspecified high-risk 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, single or unspecified fetus ([facility]) Tobacco smoking complicating in second trimester ([facility]) Tobacco use disorder complicating , childbirth, or the puerperium, antepartum condition or complication 24 weeks gestation of ([facility]) state, incidental 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, single or unspecified fetus ([facility])- Primary Supervision of high risk in second trimester ([facility])- Primary Unspecified high-risk 26 weeks gestation of ([facility]) state, incidental 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, single or unspecified fetus ([facility]) Tobacco smoking complicating in second trimester ([facility]) Tobacco use disorder complicating , childbirth, or the puerperium, antepartum condition or complication General counseling and advice for contraceptive management Other general counseling and advice for contraceptive management [facility] Diagnosis Encounter for supervision of high risk in first trimester, antepartum ([facility])- Primary 12 weeks gestation of ([facility]) state, incidental Nausea and vomiting during ([facility]) 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, single or unspecified fetus ([facility]) Supervision of high risk in second trimester ([facility])- Primary Unspecified high-risk 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, single or unspecified fetus ([facility]) 20 weeks gestation of ([facility]) state, incidental Hx of intravenous drug use, in remission- Primary Other, mixed, or unspecified nondependent drug abuse, in remission Maternal care for isoimmunization, second trimester, single gestation ([facility]) 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, single or unspecified fetus (HCC) History of drug abuse (HCC) Other, mixed, or unspecified nondependent drug abuse, in remission Family history of congenital heart defect Family history of congenital anomalies History of depression Supervision of high risk in second trimester ([facility])- Primary Unspecified high-risk 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, single or unspecified fetus (HCC) Tobacco smoking complicating in second trimester ([facility]) Tobacco use disorder complicating , childbirth, or the puerperium, antepartum condition or complication 24 weeks gestation of ([facility]) state, incidental 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, single or unspecified fetus ([facility])- Primary Supervision of high risk in second trimester ([facility])- Primary Unspecified high-risk 26 weeks gestation of ([facility]) state, incidental 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, single or unspecified fetus ([facility]) Tobacco smoking complicating in second trimester ([facility]) Tobacco use disorder complicating , childbirth, or the puerperium, antepartum condition or complication General counseling and advice for contraceptive management Other general counseling and advice for contraceptive management Supervision of high risk due to social problems, third trimester ([facility])- Primary 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, single or unspecified fetus ([facility]) 28 weeks gestation of ([facility]) state, incidental Need for vaccination Need for prophylactic vaccination and inoculation against unspecified single disease [facility] Diagnosis Encounter for supervision of high risk in first trimester, antepartum ([facility])- Primary 12 weeks gestation of ([facility]) state, incidental Nausea and vomiting during ([facility]) 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, single or unspecified fetus ([facility]) Maternal care for isoimmunization, second trimester, single gestation ([facility])- Primary Supervision of high risk in second trimester ([facility]) Unspecified high-risk Supervision of high risk in second trimester ([facility])- Primary Unspecified high-risk 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, single or unspecified fetus ([facility]) 20 weeks gestation of ([facility]) state, incidental Maternal care for isoimmunization, second trimester, single gestation ([facility]) Supervision of high risk in second trimester ([facility]) Unspecified high-risk Hx of intravenous drug use, in remission- Primary Other, mixed, or unspecified nondependent drug abuse, in remission Maternal care for isoimmunization, second trimester, single gestation ([facility]) 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, single or unspecified fetus ([facility]) History of drug abuse ([facility]) Other, mixed, or unspecified nondependent drug abuse, in remission Family history of congenital heart defect Family history of congenital anomalies History of depression Encounter for ultrasound to check growth ([facility])- Primary Encounter for routine screening for malformation using ultrasonics Maternal care for isoimmunization, second trimester, single gestation ([facility]) Supervision of high risk in second trimester ([facility]) Unspecified high-risk 24 weeks gestation of ([facility]) state, incidental Supervision of high risk in second trimester ([facility])- Primary Unspecified high-risk 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, single or unspecified fetus ([facility]) Tobacco smoking complicating in second trimester ([facility]) Tobacco use disorder complicating , childbirth, or the puerperium, antepartum condition or complication 24 weeks gestation of ([facility]) state, incidental 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, single or unspecified fetus ([facility])- Primary Maternal care for isoimmunization, second trimester, single gestation ([facility])- Primary Supervision of high risk in second trimester ([facility]) Unspecified high-risk 26 weeks gestation of ([facility]) state, incidental Supervision of high risk in second trimester ([facility])- Primary Unspecified high-risk 26 weeks gestation of ([facility]) state, incidental 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, single or unspecified fetus ([facility]) Tobacco smoking complicating in second trimester ([facility]) Tobacco use disorder complicating , childbirth, or the puerperium, antepartum condition or complication General counseling and advice for contraceptive management Other general counseling and advice for contraceptive management Supervision of high risk due to social problems, third trimester ([facility])- Primary 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, single or unspecified fetus ([facility]) 28 weeks gestation of ([facility]) state, incidental Need for vaccination Need for prophylactic vaccination and inoculation against unspecified single disease [facility] Diagnosis Encounter for supervision of high risk in first trimester, antepartum ([facility])- Primary 12 weeks gestation of ([facility]) state, incidental Nausea and vomiting during ([facility]) 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, single or unspecified fetus ([facility]) Supervision of high risk in second trimester ([facility])- Primary Unspecified high-risk 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, single or unspecified fetus (HCC) 20 weeks gestation of ([facility]) state, incidental Hx of intravenous drug use, in remission- Primary Other, mixed, or unspecified nondependent drug abuse, in remission Maternal care for isoimmunization, second trimester, single gestation ([facility]) 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, single or unspecified fetus ([facility]) History of drug abuse ([facility]) Other, mixed, or unspecified nondependent drug abuse, in remission Family history of congenital heart defect Family history of congenital anomalies History of depression Supervision of high risk in second trimester ([facility])- Primary Unspecified high-risk 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, single or unspecified fetus ([facility]) Tobacco smoking complicating in second trimester ([facility]) Tobacco use disorder complicating , childbirth, or the puerperium, antepartum condition or complication 24 weeks gestation of ([facility]) state, incidental 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, single or unspecified fetus ([facility])- Primary Supervision of high risk in second trimester ([facility])- Primary Unspecified high-risk 26 weeks gestation of ([facility]) state, incidental 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, single or unspecified fetus ([facility]) Tobacco smoking complicating in second trimester ([facility]) Tobacco use disorder complicating , childbirth, or the puerperium, antepartum condition or complication General counseling and advice for contraceptive management Other general counseling and advice for contraceptive management Supervision of high risk due to social problems, third trimester ([facility])- Primary 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, single or unspecified fetus ([facility]) 28 weeks gestation of ([facility]) state, incidental Need for vaccination Need for prophylactic vaccination and inoculation against unspecified single disease Supervision of high risk due to social problems, third trimester ([facility])- Primary 30 weeks gestation of ([facility]) state, incidental * Assessment & Plan Note - Kayla Robb MD - 01/17/2025 1:29 PM EDT Associated Problem(s): Supervision of high risk due to social problems, third trimester ([facility]) anit E postiive, baby NIPT neg. 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, single or unspecified fetus (HCC) 20 weeks gestation of ([facility]) state, incidental Hx of intravenous drug use, in remission- Primary Other, mixed, or unspecified nondependent drug abuse, in remission Maternal care for isoimmunization, second trimester, single gestation ([facility]) 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, single or unspecified fetus (HCC) History of drug abuse (HCC) Other, mixed, or unspecified nondependent drug abuse, in remission Family history of congenital heart defect Family history of congenital anomalies History of depression Supervision of high risk in second trimester ([facility])- Primary Unspecified high-risk 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, single or unspecified fetus ([facility]) Tobacco smoking complicating in second trimester ([facility]) Tobacco use disorder complicating , childbirth, or the puerperium, antepartum condition or complication 24 weeks gestation of ([facility]) state, incidental 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, single or unspecified fetus (HCC)- Primary Supervision of high risk in second trimester ([facility])- Primary Unspecified high-risk 26 weeks gestation of ([facility]) state, incidental 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, single or unspecified fetus (HCC) Tobacco smoking complicating in second trimester ([facility]) Tobacco use disorder complicating , childbirth, or the puerperium, antepartum condition or complication General counseling and advice for contraceptive management Other general counseling and advice for contraceptive management Supervision of high risk due to social problems, third trimester ([facility])- Primary 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, single or unspecified fetus (HCC) 28 weeks gestation of ([facility]) state, incidental Need for vaccination Need for prophylactic vaccination and inoculation against unspecified single disease Encounter for ultrasound to check growth ([facility])- Primary Encounter for routine screening for malformation using ultrasonics Maternal care for isoimmunization, second trimester, single gestation (HCC) 30 weeks gestation of ([facility]) state, incidental Supervision of high risk due to social problems, third trimester ([facility])- Primary 30 weeks gestation of ([facility]) state, incidental [facility] Diagnosis Encounter for supervision of high risk in first trimester, antepartum ([facility])- Primary 12 weeks gestation of ([facility]) state, incidental Nausea and vomiting during ([facility]) 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, single or unspecified fetus ([facility]) Supervision of high risk in second trimester ([facility])- Primary Unspecified high-risk 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, single or unspecified fetus ([facility]) 20 weeks gestation of ([facility]) state, incidental Hx of intravenous drug use, in remission- Primary Other, mixed, or unspecified nondependent drug abuse, in remission Maternal care for isoimmunization, second trimester, single gestation ([facility]) 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, single or unspecified fetus ([facility]) History of drug abuse ([facility]) Other, mixed, or unspecified nondependent drug abuse, in remission Family history of congenital heart defect Family history of congenital anomalies History of depression Supervision of high risk in second trimester ([facility])- Primary Unspecified high-risk 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, single or unspecified fetus ([facility]) Tobacco smoking complicating in second trimester ([facility]) Tobacco use disorder complicating , childbirth, or the puerperium, antepartum condition or complication 24 weeks gestation of ([facility]) state, incidental 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, single or unspecified fetus ([facility])- Primary Supervision of high risk in [...] OB DIP B/O [facility] Diagnosis Encounter for supervision of [...] Supervision of high risk in second trimester ([facility])- Primary Unspecified high-risk 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, single or unspecified fetus (HCC) Tobacco smoking complicating in second trimester ([facility]) Tobacco use disorder complicating , childbirth, or the puerperium, antepartum condition or complication 24 weeks gestation of ([facility]) state, incidental 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, single or unspecified fetus (HCC)- Primary Supervision of high risk in second trimester ([facility])- Primary Unspecified high-risk 26 weeks gestation of ([facility]) state, incidental 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, single or unspecified fetus (HCC) Tobacco smoking complicating in second trimester ([facility]) Tobacco use disorder complicating , childbirth, or the puerperium, antepartum condition or complication General counseling and advice for contraceptive management Other general counseling and advice for contraceptive management Supervision of high risk due to social problems, third trimester ([facility])- Primary 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, single or unspecified fetus (HCC) 28 weeks gestation of ([facility]) state, incidental Need for vaccination Need for prophylactic vaccination and inoculation against unspecified single disease Supervision of high risk due to social problems, third trimester ([facility])- Primary 30 weeks gestation of ([facility]) state, incidental Supervision of high risk due to social problems, third trimester ([facility])- Primary 32 weeks gestation of ([facility]) state, incidental 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, single or unspecified fetus (HCC) Supervision of high risk due to social problems, third trimester ([facility])- Primary 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, single or unspecified fetus (HCC) 34 weeks gestation of ([facility]) state, incidental [facility] Diagnosis Encounter for supervision of high risk in first trimester, antepartum ([facility])- Primary 12 weeks gestation of ([facility]) state, incidental Nausea and vomiting during ([facility]) 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, single or unspecified fetus (HCC) Supervision of high risk in second trimester ([facility])- Primary Unspecified high-risk 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, single or unspecified fetus (HCC) 20 weeks gestation of ([facility]) state, incidental Hx of intravenous drug use, in remission- Primary Other, mixed, or unspecified nondependent drug abuse, in remission Maternal care for isoimmunization, second trimester, single gestation ([facility]) 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, single or unspecified fetus (HCC) History of drug abuse (HCC) Other, mixed, or unspecified nondependent drug abuse, in remission Family history of congenital heart defect Family history of congenital anomalies History of depression Supervision of high risk in second trimester ([facility])- Primary Unspecified high-risk 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, single or unspecified fetus ([facility]) Tobacco smoking complicating in second trimester ([facility]) Tobacco use disorder complicating , childbirth, or the puerperium, antepartum condition or complication 24 weeks gestation of ([facility]) state, incidental 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, single or unspecified fetus ([facility])- Primary Supervision of high risk in second trimester ([facility])- Primary Unspecified high-risk 26 weeks gestation of ([facility]) state, incidental 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, single or unspecified fetus (HCC) Tobacco smoking complicating in second trimester ([facility]) Tobacco use disorder complicating , childbirth, or the puerperium, antepartum condition or complication General counseling and advice for contraceptive management Other general counseling and advice for contraceptive management Supervision of high risk due to social problems, third trimester ([facility])- Primary 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, single or unspecified fetus (HCC) 28 weeks gestation of ([facility]) state, incidental Need for vaccination Need for prophylactic vaccination and inoculation against unspecified single disease Supervision of high risk due to social problems, third trimester ([facility])- Primary 30 weeks gestation of ([facility]) state, incidental Supervision of high risk due to social problems, third trimester ([facility])- Primary 32 weeks gestation of ([facility]) state, incidental 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, single or unspecified fetus (HCC) 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, single or unspecified fetus (HCC)- Primary Maternal care for isoimmunization, second trimester, single gestation ([facility]) History of hepatitis C Personal history of other infectious and parasitic disease Tobacco smoking complicating in first trimester ([facility]) Tobacco use disorder complicating , childbirth, or the puerperium, antepartum condition or complication [facility] Diagnosis Encounter for supervision of high risk in first trimester, antepartum ([facility])- Primary 12 weeks gestation of ([facility]) state, incidental Nausea and vomiting during ([facility]) 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, single or unspecified fetus ([facility]) Supervision of high risk in second trimester ([facility])- Primary Unspecified high-risk 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, single or unspecified fetus ([facility]) 20 weeks gestation of ([facility]) state, incidental Hx of intravenous drug use, in remission- Primary Other, mixed, or unspecified nondependent drug abuse, in remission Maternal care for isoimmunization, second trimester, single gestation ([facility]) 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, single or unspecified fetus ([facility]) History of drug abuse ([facility]) Other, mixed, or unspecified nondependent drug abuse, in remission Family history of congenital heart defect Family history of congenital anomalies History of depression Supervision of high risk in second trimester ([facility])- Primary Unspecified high-risk 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, single or unspecified fetus ([facility]) Tobacco smoking complicating in second trimester ([facility]) Tobacco use disorder complicating , childbirth, or the puerperium, antepartum condition or complication 24 weeks gestation of ([facility]) state, incidental 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, single or unspecified fetus ([facility])- Primary Supervision of high risk in second trimester ([facility])- Primary Unspecified high-risk 26 weeks gestation of ([facility]) state, incidental 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, single or unspecified fetus ([facility]) Tobacco smoking complicating in second trimester ([facility]) Tobacco use disorder complicating , childbirth, [...] front of him [facility] Encounter for supervision of [...] unspecified fetus (HCC) 20 weeks gestation of ([facility]) state, incidental Hx of intravenous drug use, in remission- Primary Other, mixed, or unspecified nondependent drug abuse, in remission Maternal care for isoimmunization, second trimester, single gestation ([facility]) 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, single or unspecified fetus (HCC) History of drug abuse (HCC) Other, mixed, or unspecified nondependent drug abuse, in remission Family history of congenital heart defect Family history of congenital anomalies History of depression Supervision of high risk in second trimester ([facility])- Primary Unspecified high-risk 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, single or unspecified fetus ([facility]) Tobacco smoking complicating in second trimester ([facility]) Tobacco use disorder complicating , childbirth, or the puerperium, antepartum condition or complication 24 weeks gestation of ([facility]) state, incidental 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, single or unspecified fetus ([facility])- Primary Supervision of high risk in second trimester ([facility])- Primary Unspecified high-risk 26 weeks gestation of ([facility]) state, incidental 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, single or unspecified fetus ([facility]) Tobacco smoking complicating in second trimester ([facility]) Tobacco use disorder complicating , childbirth, or the puerperium, antepartum condition or complication General counseling and advice for contraceptive management Other general counseling and advice for contraceptive management Supervision of high risk due to social problems, third trimester ([facility])- Primary 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, single or unspecified fetus (HCC) 28 weeks gestation of ([facility]) state, incidental Need for vaccination Need for prophylactic vaccination and inoculation against unspecified single disease Supervision of high risk due to social problems, third trimester ([facility])- Primary 30 weeks gestation of ([facility]) state, incidental Supervision of high risk due to social problems, third trimester ([facility])- Primary 32 weeks gestation of ([facility]) state, incidental 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, single or unspecified fetus ([facility]) Supervision of high risk due to social problems, third trimester ([facility])- Primary 36 weeks gestation of ([facility]) state, incidental History of herpes genitalis [...] OB DIP B/O [facility] Diagnosis Encounter for supervision of high risk in first trimester, antepartum (HCC)- Primary 12 weeks gestation of ([facility]) state, incidental Nausea and vomiting during ([facility]) 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, single or unspecified fetus (HCC) Supervision of high risk in second trimester ([facility])- Primary Unspecified high-risk 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, single or unspecified fetus (HCC) 20 weeks gestation of ([facility]) state, incidental Hx of intravenous drug [...] Supervision of high risk in second trimester ([facility])- Primary Unspecified high-risk 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, single or unspecified fetus (HCC) Tobacco smoking complicating in second trimester (HCC) Tobacco use disorder complicating , childbirth, or the puerperium, antepartum condition or complication 24 weeks gestation of ([facility]) state, incidental Anti-E isoimmunization affecting in [...] of herpes genitalis documented in this encounter [facility] for referral (narrative)* Diagnostic Procedure Only (Routine) - Pending Review Specialty Diagnoses / Procedures Referred By Contac t Referred To Contact [facility] Diagnoses Uncertain dates, antepartum, first trimester Procedures OBSTETRIC ULTRASOUND WHI US PREG UTERUS AFTER 1ST TRIMEST GESTATION Kayla Robb MD [address] [place] [address] [address] Referral ID Status Reason Start Date Expiration Date Visits Requested Visits Authorized [id number] Pending Review Auto-Generat ed Referral 01/02/2022 01/02/2023 1 1 [facility] for referral (narrative)* Diagnostic Procedure Only (Routine) - Pending Review Specialty Diagnoses / Procedures Referred By Contac t Referred To Contact [facility] Diagnoses Encounter for supervision of normal in multigravida in first trimester Procedures NUCHAL TRANSLUCENCY WHI US NUCHAL TRANSLUCENCY GESTATION Alfredo Benitez MD [address] [place] [address] [facility] [address] [place] [address] Referral ID Status Reason Start Date Expiration Date Visits Requested Visits Authorized [id number] Pending Review Auto-Generat ed Referral 01/20/2022 01/20/2023 1 1 [facility] for referral (narrative)* Diagnostic Procedure Only (Routine) - Pending Review Specialty Diagnoses / Procedures Referred By Contac t Referred To [facility] Diagnoses Supervision of other high risk pregnancies, first trimester Encounter for screening of mother Procedures OBSTETRIC ULTRASOUND WHI US PREG UTERUS AFTER 1ST TRIMEST GESTATION Kayla Robb MD [address] [place] [address] [facility] [address] [place] [address] Referral ID Status Reason Start Date Expiration Date Visits Requested Visits Authorized [id number] Pending Review Auto-Generat ed Referral 02/17/2022 02/17/2023 1 1 * Diagnostic Procedure Only (Routine) - Closed Specialty Diagnoses / Procedures Referred By Татьяна t Referred To Contact [facility] Diagnoses 13 weeks gestation of Supervision of other high risk pregnancies, first trimester Encounter for screening of mother Procedures NUCHAL TRANSLUCENCY WHI US NUCHAL TRANSLUCENCY GESTATION Kayla Robb MD [address] [place] [address] 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 [address] [place] [address] Referral ID Status Reason Start Date Expiration Date Visits Requested Visits Authorized [id number] Pending Review Auto-Generat ed Referral 06/26/2023 1 1 T [facility] for referral (narrative)* Outpatient Procedure (Routine) - Pending Review Specialty Diagnoses / Procedures Referred By Contac t Referred To Contact [facility] Diagnoses Nexplanon insertion Procedures NEXPLANON REMOVAL REMOVAL NON-BIODEGRADABLE DRUG DELIVERY IMPLANT Kayla Robb MD [address] [place] [address] [facility] [address] [place] [address] Referral ID Status Reason Start Date Expiration Date Visits Requested Visits Authorized [id number] Pending Review Auto-Generat ed Referral 01/08/2023 01/08/2024 1 1 T [facility] for referral (narrative)* Diagnostic Procedure Only (Routine) - Closed Specialty Diagnoses / Procedures Referred By Contac t Referred To Contact [facility] Diagnoses Chronic hepatitis C without hepatic coma (HCC) Procedures US ABD RT UPPER QUADRANT US ABDOMINAL REAL TIME W/IMAGE LIMITED Abimbola Valenzuela PA-C [address] [address] [place] [id number] Referral ID Status Reason Start Date Expiration Date V isits Requested Visits Authorized [id number] Closed Auto-Generate d Referral 10/14/2022 11/13/2023 1 1 [facility] for referral (narrative)* Diagnostic Procedure Only (Routine) - Authorized Specialty Diagnoses / Procedures Referred By Nghiaac t Referred To Contact [facility] Diagnoses Encounter for supervision of high risk in first trimester, antepartum Procedures NUCHAL TRANSLUCENCY WHI US NUCHAL TRANSLUCENCY 1ST GESTATION Rylee Scott APRN.CNP [address] [address] [id number] [place] [address] Referral ID Status Reason Start Date Expiration Date Visits Requested Visits Authorized [id number] Authorized Auto-Generat ed Referral 4 08/02/2025 1 1 * Diagnostic Procedure Only (Routine) - Authorized Specialty Diagnoses / Procedures Referred By Татьяна t Referred To Contact [facility] Diagnoses Encounter for supervision of high risk in first trimester, antepartum Procedures OBSTETRIC ULTRASOUND WHI US PREG UTERUS AFTER 1ST TRIMEST GESTATION Rylee Scott APRN.CNP [address] [place] [address] 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 [address] [facility] [address] [place] [address] Referral ID Status Reason Start Date Expiration Date V isits Requested Visits Authorized [id number] Closed Auto-Generate d Referral 07/03/2022 07/03/2023 10 1 [facility]* Outpatient Procedure (Routine) - Closed Specialty Diagnoses / Procedures Referred By Contac t Referred To Contact [facility] Diagnoses Chronic hepatitis C without hepatic coma (HCC) Procedures DDI VIBRATION CONTROLLED TRANSIENT ELASTOGRAPHY (VCTE) LIVER ELASTOGRAPHY W/O IMAG W/I&R Abimbola Valenzuela PA-C [address] [facility] [place] [address] [facility] [address] [address] Referral ID Status Reason Start Date Expiration Date V isits Requested Visits Authorized [id number] Closed Auto-Generate d Referral 10/14/2022 10/14/2023 1 1 [facility] Summary Purpose Family History Relationship Condition [...] No December 23, 2021 8:31pm Power of Forming Roll Operator No December 23 8:31pm Advance Directive Response Recorded Date/ Time Advance Directives No February 03 12:02am Living Will No January 26, 2022 1 1:10pm Power of Forming Roll Operator No January 26, 2022 11:10pm Advance Directive Response Recorded Date/ Time Advance Directives No February 03 5 12:02am Living Will No May 07 11:07pm Power of Forming Roll Operator No May 07, 2022 11:07pm Advance Directive Response Recorded Date/ Time Advance Directives No May 30th, 201 5 11:02pm Living Will No August 05, 2 022 7:16am Power of Forming Roll Operator No August 05, 2022 7:16am Chief Complaint [...] hepatitis (HCC) Procedures CONSULT TO HEPATOLOGY OFFICE/OUTPATIENT [facility] 60-74 MINUTES Kayla Robb MD [facility] [place] [address] Referral ID Status Reason Start Date Expiration Date Visits Requested Visits Authorized [id number] Authorized PCP Requested Referral 08/12/2022 08/12/2023 1 1 Additional Source Comments INFORMATION SOURCE (unrecogn ized section and content) DATE CREATED AUTHOR 03/01/2018 [facility] DATE CREATED AUTHOR AUTHOR'S ORGANIZ ATION 03/01/2018 [facility] ([place]) DATE CREATED AUTHOR AUTHOR'S ORGANIZ ATION 03/22/2023 [facility] DATE CREATED AUTHOR AUTHOR'S ORGANIZ ATION 12/10/2024 [facility] DATE CREATED AUTHOR AUTHOR'S ORGANIZ ATION 03/09/2025 [facility] Source Comments (unrecognize d section and content) In the event this informatio n is protected by the Federal Confidentiality of Alcohol and Drug Abuse Patient Records regulations: The Federal rules restrict any use of the information to criminally investigate or prosecute any alcohol or drug abuse patient.[facility] the event this information is protected by the Federal Confidentiality of Alcohol and Drug Abuse Patient Records regulations: The Federal rules restrict any use of the information to criminally investigate or prosecute any alcohol or drug abuse patient.[facility] Hospital[facility] the event this information is protected by the Federal Confidentiality of Alcohol and Drug Abuse Patient Records regulations: The Federal rules restrict any use of the information to criminally investigate or prosecute any alcohol or drug abuse patient.[facility] HospitalIn the event this information is protected by the Federal Confidentiality of Alcohol and Drug Abuse Patient Records regulations: The Federal rules restrict any use of the information to criminally investigate or prosecute any alcohol or drug abuse patient.[facility] Hospital[facility] the event this information is protected by the Federal Confidentiality of Alcohol and Drug Abuse Patient Records regulations: The Federal rules restrict any use of the information to criminally investigate or prosecute any alcohol or drug abuse patient.[facility] HospitalIn the event this information is protected by the Federal Confidentiality of Alcohol and Drug Abuse Patient Records regulations: The Federal rules restrict any use of the information to criminally investigate or prosecute any alcohol or drug abuse patient.[facility] HospitalIn the event this information is protected by the Federal Confidentiality of Alcohol and Drug Abuse Patient Records regulations: The Federal rules restrict any use of the information to criminally investigate or prosecute any alcohol or drug abuse patient.[facility] HospitalIn the event this information is protected by the Federal Confidentiality of Alcohol and Drug Abuse Patient Records regulations: The Federal rules restrict any use of the information to criminally investigate or prosecute any alcohol or drug abuse patient.[facility] HospitalIn the event this information is protected by the Federal Confidentiality of Alcohol and Drug Abuse Patient Records regulations: The Federal rules restrict any use of the information to criminally investigate or prosecute any alcohol or drug abuse patient.[facility] HospitalIn the event this information is protected by the Federal Confidentiality of Alcohol and Drug Abuse Patient Records regulations: The Federal rules restrict any use of the information to criminally investigate or prosecute any alcohol or drug abuse patient.[facility] HospitalIn the event this information is protected by the Federal Confidentiality of Alcohol and Drug Abuse Patient Records regulations: The Federal rules restrict any use of the information to criminally investigate or prosecute any alcohol or drug abuse patient.[facility] HospitalIn the event this information is protected by the Federal Confidentiality of Alcohol and Drug Abuse Patient Records regulations: The Federal rules restrict any use of the information to criminally investigate or prosecute any alcohol or drug abuse patient.[facility] HospitalIn the event this information is protected by the Federal Confidentiality of Alcohol and Drug Abuse Patient Records regulations: The Federal rules restrict any use of the information to criminally investigate or prosecute any alcohol or drug abuse patient.[facility] HospitalIn the event this information is protected by the Federal Confidentiality of Alcohol and Drug Abuse Patient Records regulations: The Federal rules restrict any use of the information to criminally investigate or prosecute any alcohol or drug abuse patient.[facility] HospitalIn the event this information is protected by the Federal Confidentiality of Alcohol and Drug Abuse Patient Records regulations: The Federal rules restrict any use of the information to criminally investigate or prosecute any alcohol or drug abuse patient.[facility] HospitalIn the event this information is protected by the Federal Confidentiality of Alcohol and Drug Abuse Patient Records regulations: The Federal rules restrict any use of the information to criminally investigate or prosecute any alcohol or drug abuse patient.[facility] HospitalIn the event this information is protected by the Federal Confidentiality of Alcohol and Drug Abuse Patient Records regulations: The Federal rules restrict any use of the information to criminally investigate or prosecute any alcohol or drug abuse patient.[facility] HospitalIn the event this information is protected by the Federal Confidentiality of Alcohol and Drug Abuse Patient Records regulations: The Federal rules restrict any use of the information to criminally investigate or prosecute any alcohol or drug abuse patient.[facility] HospitalIn the event this information is protected by the Federal Confidentiality of Alcohol and Drug Abuse Patient Records regulations: The Federal rules restrict any use of the information to criminally investigate or prosecute any alcohol or drug abuse patient.[facility] HospitalIn the event this information is protected by the Federal Confidentiality of Alcohol and Drug Abuse Patient Records regulations: The Federal rules restrict any use of the information to criminally investigate or prosecute any alcohol or drug abuse patient.[facility] HospitalIn the event this information is protected by the Federal Confidentiality of Alcohol and Drug Abuse Patient Records regulations: The Federal rules restrict any use of the information to criminally investigate or prosecute any alcohol or drug abuse patient.[facility] HospitalIn the event this information is protected by the Federal Confidentiality of Alcohol and Drug Abuse Patient Records regulations: The Federal rules restrict any use of the information to criminally investigate or prosecute any alcohol or drug abuse patient.[facility] HospitalIn the event this information is protected by the Federal Confidentiality of Alcohol and Drug Abuse Patient Records regulations: The Federal rules restrict any use of the information to criminally investigate or prosecute any alcohol or drug abuse patient.[facility] HospitalIn the event this information is protected by the Federal Confidentiality of Alcohol and Drug Abuse Patient Records regulations: The Federal rules restrict any use of the information to criminally investigate or prosecute any alcohol or drug abuse patient.[facility] HospitalIn the event this information is protected by the Federal Confidentiality of Alcohol and Drug Abuse Patient Records regulations: The Federal rules restrict any use of the information to criminally investigate or prosecute any alcohol or drug abuse patient.[facility] HospitalIn the event this information is protected by the Federal Confidentiality of Alcohol and Drug Abuse Patient Records regulations: The Federal rules restrict any use of the information to criminally investigate or prosecute any alcohol or drug abuse patient.[facility] HospitalIn the event this information is protected by the Federal Confidentiality of Alcohol and Drug Abuse Patient Records regulations: The Federal rules restrict any use of the information to criminally investigate or prosecute any alcohol or drug abuse patient.[facility] HospitalIn the event this information is protected by the Federal Confidentiality of Alcohol and Drug Abuse Patient Records regulations: The Federal rules restrict any use of the information to criminally investigate or prosecute any alcohol or drug abuse patient.[facility] HospitalIn the event this information is protected by the Federal Confidentiality of Alcohol and Drug Abuse Patient Records regulations: The Federal rules restrict any use of the information to criminally investigate or prosecute any alcohol or drug abuse patient.[facility] HospitalIn the event this information is protected by the Federal Confidentiality of Alcohol and Drug Abuse Patient Records regulations: The Federal rules restrict any use of the information to criminally investigate or prosecute any alcohol or drug abuse patient.[facility] HospitalIn the event this information is protected by the Federal Confidentiality of Alcohol and Drug Abuse Patient Records regulations: The Federal rules restrict any use of the information to criminally investigate or prosecute any alcohol or drug abuse patient.[facility] HospitalIn the event this information is protected by the Federal Confidentiality of Alcohol and Drug Abuse Patient Records regulations: The Federal rules restrict any use of the information to criminally investigate or prosecute any alcohol or drug abuse patient.[facility] HospitalIn the event this information is protected by the Federal Confidentiality of Alcohol and Drug Abuse Patient Records regulations: The Federal rules restrict any use of the information to criminally investigate or prosecute any alcohol or drug abuse patient.[facility] HospitalIn the event this information is protected by the Federal Confidentiality of Alcohol and Drug Abuse Patient Records regulations: The Federal rules restrict any use of the information to criminally investigate or prosecute any alcohol or drug abuse patient.[facility] HospitalIn the event this information is protected by the Federal Confidentiality of Alcohol and Drug Abuse Patient Records regulations: The Federal rules restrict any use of the information to criminally investigate or prosecute any alcohol or drug abuse patient.[facility] HospitalIn the event this information is protected by the Federal Confidentiality of Alcohol and Drug Abuse Patient Records regulations: The Federal rules restrict any use of the information to criminally investigate or prosecute any alcohol or drug abuse patient.[facility] HospitalIn the event this information is protected by the Federal Confidentiality of Alcohol and Drug Abuse Patient Records regulations: The Federal rules restrict any use of the information to criminally investigate or prosecute any alcohol or drug abuse patient.[facility] HospitalIn the event this information is protected by the Federal Confidentiality of Alcohol and Drug Abuse Patient Records regulations: The Federal rules restrict any use of the information to criminally investigate or prosecute any alcohol or drug abuse patient.[facility] HospitalIn the event this information is protected by the Federal Confidentiality of Alcohol and Drug Abuse Patient Records regulations: The Federal rules restrict any use of the information to criminally investigate or prosecute any alcohol or drug abuse patient.[facility] HospitalIn the event this information is protected by the Federal Confidentiality of Alcohol and Drug Abuse Patient Records regulations: The Federal rules restrict any use of the information to criminally investigate or prosecute any alcohol or drug abuse patient.[facility] HospitalIn the event this information is protected by the Federal Confidentiality of Alcohol and Drug Abuse Patient Records regulations: The Federal rules restrict any use of the information to criminally investigate or prosecute any alcohol or drug abuse patient.[facility] HospitalIn the event this information is protected by the Federal Confidentiality of Alcohol and Drug Abuse Patient Records regulations: The Federal rules restrict any use of the information to criminally investigate or prosecute any alcohol or drug abuse patient.[facility] HospitalIn the event this information is protected by the Federal Confidentiality of Alcohol and Drug Abuse Patient Records regulations: The Federal rules restrict any use of the information to criminally investigate or prosecute any alcohol or drug abuse patient.[facility] HospitalIn the event this information is protected by the Federal Confidentiality of Alcohol and Drug Abuse Patient Records regulations: The Federal rules restrict any use of the information to criminally investigate or prosecute any alcohol or drug abuse patient.[facility] HospitalIn the event this information is protected by the Federal Confidentiality of Alcohol and Drug Abuse Patient Records regulations: The Federal rules restrict any use of the information to criminally investigate or prosecute any alcohol or drug abuse patient.[facility] HospitalIn the event this information is protected by the Federal Confidentiality of Alcohol and Drug Abuse Patient Records regulations: The Federal rules restrict any use of the information to criminally investigate or prosecute any alcohol or drug abuse patient.[facility] HospitalIn the event this information is protected by the Federal Confidentiality of Alcohol and Drug Abuse Patient Records regulations: The Federal rules restrict any use of the information to criminally investigate or prosecute any alcohol or drug abuse patient.[facility] HospitalIn the event this information is protected by the Federal Confidentiality of Alcohol and Drug Abuse Patient Records regulations: The Federal rules restrict any use of the information to criminally investigate or prosecute any alcohol or drug abuse patient.[facility] HospitalIn the event this information is protected by the Federal Confidentiality of Alcohol and Drug Abuse Patient Records regulations: The Federal rules restrict any use of the information to criminally investigate or prosecute any alcohol or drug abuse patient.[facility] HospitalIn the event this information is protected by the Federal Confidentiality of Alcohol and Drug Abuse Patient Records regulations: The Federal rules restrict any use of the information to criminally investigate or prosecute any alcohol or drug abuse patient.[facility] HospitalIn the event this information is protected by the Federal Confidentiality of Alcohol and Drug Abuse Patient Records regulations: The Federal rules restrict any use of the information to criminally investigate or prosecute any alcohol or drug abuse patient.[facility] HospitalIn the event this information is protected by the Federal Confidentiality of Alcohol and Drug Abuse Patient Records regulations: The Federal rules restrict any use of the information to criminally investigate or prosecute any alcohol or drug abuse patient.[facility] HospitalIn the event this information is protected by the Federal Confidentiality of Alcohol and Drug Abuse Patient Records regulations: The Federal rules restrict any use of the information to criminally investigate or prosecute any alcohol or drug abuse patient.[facility] HospitalIn the event this information is protected by the Federal Confidentiality of Alcohol and Drug Abuse Patient Records regulations: The Federal rules restrict any use of the information to criminally investigate or prosecute any alcohol or drug abuse patient.[facility] HospitalIn the event this information is protected by the Federal Confidentiality of Alcohol and Drug Abuse Patient Records regulations: The Federal rules restrict any use of the information to criminally investigate or prosecute any alcohol or drug abuse patient.[facility] HospitalIn the event this information is protected by the Federal Confidentiality of Alcohol and Drug Abuse Patient Records regulations: The Federal rules restrict any use of the information to criminally investigate or prosecute any alcohol or drug abuse patient.[facility] HospitalIn the event this information is protected by the Federal Confidentiality of Alcohol and Drug Abuse Patient Records regulations: The Federal rules restrict any use of the information to criminally investigate or prosecute any alcohol or drug abuse patient.[facility] HospitalIn the event this information is protected by the Federal Confidentiality of Alcohol and Drug Abuse Patient Records regulations: The Federal rules restrict any use of the information to criminally investigate or prosecute any alcohol or drug abuse patient.[facility] HospitalIn the event this information is protected by the Federal Confidentiality of Alcohol and Drug Abuse Patient Records regulations: The Federal rules restrict any use of the information to criminally investigate or prosecute any alcohol or drug abuse patient.[facility] HospitalIn the event this information is protected by the Federal Confidentiality of Alcohol and Drug Abuse Patient Records regulations: The Federal rules restrict any use of the information to criminally investigate or prosecute any alcohol or drug abuse patient.[facility] HospitalIn the event this information is protected by the Federal Confidentiality of Alcohol and Drug Abuse Patient Records regulations: The Federal rules restrict any use of the information to criminally investigate or prosecute any alcohol or drug abuse patient.[facility] HospitalIn the event this information is protected by the Federal Confidentiality of Alcohol and Drug Abuse Patient Records regulations: The Federal rules restrict any use of the information to criminally investigate or prosecute any alcohol or drug abuse patient.[facility] HospitalIn the event this information is protected by the Federal Confidentiality of Alcohol and Drug Abuse Patient Records regulations: The Federal rules restrict any use of the information to criminally investigate or prosecute any alcohol or drug abuse patient.[facility] HospitalIn the event this information is protected by the Federal Confidentiality of Alcohol and Drug Abuse Patient Records regulations: The Federal rules restrict any use of the information to criminally investigate or prosecute any alcohol or drug abuse patient.[facility] HospitalIn the event this information is protected by the Federal Confidentiality of Alcohol and Drug Abuse Patient Records regulations: The Federal rules restrict any use of the information to criminally investigate or prosecute any alcohol or drug abuse patient.[facility] HospitalIn the event this information is protected by the Federal Confidentiality of Alcohol and Drug Abuse Patient Records regulations: The Federal rules restrict any use of the information to criminally investigate or prosecute any alcohol or drug abuse patient.[facility] HospitalIn the event this information is protected by the Federal Confidentiality of Alcohol and Drug Abuse Patient Records regulations: The Federal rules restrict any use of the information to criminally investigate or prosecute any alcohol or drug abuse patient.[facility] HospitalIn the event this information is protected by the Federal Confidentiality of Alcohol and Drug Abuse Patient Records regulations: The Federal rules restrict any use of the information to criminally investigate or prosecute any alcohol or drug abuse patient.[facility] HospitalIn the event this information is protected by the Federal Confidentiality of Alcohol and Drug Abuse Patient Records regulations: The Federal rules restrict any use of the information to criminally investigate or prosecute any alcohol or drug abuse patient.[facility] HospitalIn the event this information is protected by the Federal Confidentiality of Alcohol and Drug Abuse Patient Records regulations: The Federal rules restrict any use of the information to criminally investigate or prosecute any alcohol or drug abuse patient.[facility] HospitalIn the event this information is protected by the Federal Confidentiality of Alcohol and Drug Abuse Patient Records regulations: The Federal rules restrict any use of the information to criminally investigate or prosecute any alcohol or drug abuse patient.[facility] HospitalIn the event this information is protected by the Federal Confidentiality of Alcohol and Drug Abuse Patient Records regulations: The Federal rules restrict any use of the information to criminally investigate or prosecute any alcohol or drug abuse patient.[facility] HospitalIn the event this information is protected by the Federal Confidentiality of Alcohol and Drug Abuse Patient Records regulations: The Federal rules restrict any use of the information to criminally investigate or prosecute any alcohol or drug abuse patient.[facility] HospitalIn the event this information is protected by the Federal Confidentiality of Alcohol and Drug Abuse Patient Records regulations: The Federal rules restrict any use of the information to criminally investigate or prosecute any alcohol or drug abuse patient.[facility] HospitalIn the event this information is protected by the Federal Confidentiality of Alcohol and Drug Abuse Patient Records regulations: The Federal rules restrict any use of the information to criminally investigate or prosecute any alcohol or drug abuse patient.[facility] HospitalIn the event this information is protected by the Federal Confidentiality of Alcohol and Drug Abuse Patient Records regulations: The Federal rules restrict any use of the information to criminally investigate or prosecute any alcohol or drug abuse patient.[facility] HospitalIn the event this information is protected by the Federal Confidentiality of Alcohol and Drug Abuse Patient Records regulations: The Federal rules restrict any use of the information to criminally investigate or prosecute any alcohol or drug abuse patient.[facility] HospitalIn the event this information is protected by the Federal Confidentiality of Alcohol and Drug Abuse Patient Records regulations: The Federal rules restrict any use of the information to criminally investigate or prosecute any alcohol or drug abuse patient.[facility] HospitalIn the event this information is protected by the Federal Confidentiality of Alcohol and Drug Abuse Patient Records regulations: The Federal rules restrict any use of the information to criminally investigate or prosecute any alcohol or drug abuse patient.[facility] HospitalIn the event this information is protected by the Federal Confidentiality of Alcohol and Drug Abuse Patient Records regulations: The Federal rules restrict any use of the information to criminally investigate or prosecute any alcohol or drug abuse patient.[facility] HospitalIn the event this information is protected by the Federal Confidentiality of Alcohol and Drug Abuse Patient Records regulations: The Federal rules restrict any use of the information to criminally investigate or prosecute any alcohol or drug abuse patient.[facility] HospitalIn the event this information is protected by the Federal Confidentiality of Alcohol and Drug Abuse Patient Records regulations: The Federal rules restrict any use of the information to criminally investigate or prosecute any alcohol or drug abuse patient.[facility] HospitalIn the event this information is protected by the Federal Confidentiality of Alcohol and Drug Abuse Patient Records regulations: The Federal rules restrict any use of the information to criminally investigate or prosecute any alcohol or drug abuse patient.[facility] HospitalIn the event this information is protected by the Federal Confidentiality of Alcohol and Drug Abuse Patient Records regulations: The Federal rules restrict any use of the information to criminally investigate or prosecute any alcohol or drug abuse patient.[facility] HospitalIn the event this information is protected by the Federal Confidentiality of Alcohol and Drug Abuse Patient Records regulations: The Federal rules restrict any use of the information to criminally investigate or prosecute any alcohol or drug abuse patient.[facility] HospitalIn the event this information is protected by the Federal Confidentiality of Alcohol and Drug Abuse Patient Records regulations: The Federal rules restrict any use of the information to criminally investigate or prosecute any alcohol or drug abuse patient.[facility] HospitalIn the event this information is protected by the Federal Confidentiality of Alcohol and Drug Abuse Patient Records regulations: The Federal rules restrict any use of the information to criminally investigate or prosecute any alcohol or drug abuse patient.[facility] HospitalIn the event this information is protected by the Federal Confidentiality of Alcohol and Drug Abuse Patient Records regulations: The Federal rules restrict any use of the information to criminally investigate or prosecute any alcohol or drug abuse patient.[facility] HospitalIn the event this information is protected by the Federal Confidentiality of Alcohol and Drug Abuse Patient Records regulations: The Federal rules restrict any use of the information to criminally investigate or prosecute any alcohol or drug abuse patient.[facility] HospitalIn the event this information is protected by the Federal Confidentiality of Alcohol and Drug Abuse Patient Records regulations: The Federal rules restrict any use of the information to criminally investigate or prosecute any alcohol or drug abuse patient.[facility] Reason for Visit (unrecogniz ed section and content) Reason Comments Future Appointment Reason Comments Missed Appointment Reason Comments Initial OB Visit Reason Onset Date Comments Care 01/20/2022 Reason Comments Results Reason Comments PRAF FORM Reason Onset Date Comments Care 02/17/2022 Reason Comments US Specialty Diagnoses / Procedures Referred By Contac t Referred To Contact [facility] Diagnoses 13 weeks gestation of Supervision of other high risk pregnancies, first trimester Encounter for screening of mother Procedures NUCHAL TRANSLUCENCY WHI US NUCHAL TRANSLUCENCY 1ST GESTATION Kayla Robb MD [address] [address] [facility] [address] [place] [address] Referral ID Status Reason Start Date Expiration Date V isits Requested Visits Authorized [id number] Closed Auto-Generate d Referral 02/17/2022 02/17/2023 1 1 Reason Comments Patient Update Reason Comments First Seq Results Reason Comments Patient Question Reason Onset Date Comments Care 03/17/2022 Specialty Diagnoses / Procedures Referred By Nghiaac t Referred To Contact [facility] Diagnoses Supervision of other high risk pregnancies, first trimester Encounter for screening of mother Procedures OBSTETRIC ULTRASOUND WHI US PREG UTERUS AFTER 1ST TRIMEST GESTATION Kayla Robb MD [address] [place] [address] [address] Referral ID Status Reason Start Date Expiration Date V isits Requested Visits Authorized [id number] Closed Auto-Generate d Referral 02/17/2022 02/17/2023 1 1 Reason Onset Date Comments Care 04/24/2022 Reason Comments Medication Question Reason Onset Date Comments Care 05/25/2022 Reason Onset Date Comments Care 06/10/2022 Reason Comments Orders Reason Onset Date Comments Care 06/26/2022 Specialty Diagnoses / Procedures Referred By Татьяна t Referred To Contact [facility] Diagnoses Supervision of high risk in third trimester 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, single or unspecified fetus 31 weeks gestation of Procedures OBSTETRIC ULTRASOUND WHI US PREG UTERUS AFTER 1ST TRIMEST GESTATION Kayla Robb MD [address] [place] [address] [address] Referral ID Status Reason Start Date Expiration Date V isits Requested Visits Authorized [id number] Closed Auto-Generate d Referral 06/26/2022 06/25/2023 1 1 Reason Onset Date Comments Care 07/07/2022 Specialty Diagnoses / Procedures Referred By Nghiaac t Referred To Contact [facility] Diagnoses 31 weeks gestation of High-risk in third trimester 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 [address] 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 [address] [place] [address] Referral ID Status Reason Start Date Expiration Date V isits Requested Visits Authorized [id number] Closed Auto-Generate d Referral 07/03/2022 07/03/2023 10 [...] REAL TIME W/IMAGE LIMITED Abimbola Valenzuela PA-C [address] [place] [address] [facility] [place] [address] Referral ID Status Reason Start Date Expiration Date V isits Requested Visits Authorized [id number] Closed Auto-Generate d Referral 10/14/2022 11/13/2023 1 [...] Referred By Contac t Referred To Contact [facility] Diagnoses Encounter for supervision of high risk in first trimester, antepartum Procedures NUCHAL TRANSLUCENCY WHI US NUCHAL TRANSLUCENCY 1ST GESTATION Rylee Scott APRN.INTEGRITY DIRECTOR [address] [place] [address] [address] Referral ID Status Reason Start Date Expiration Date V isits Requested Visits Authorized [id number] Closed Auto-Generate d Referral 08/02/2024 08/02/2025 1 [...] Referred By Contac t Referred To Contact [facility] Diagnoses Encounter for supervision of high risk in first trimester, antepartum Procedures OBSTETRIC ULTRASOUND WHI US PREG UTERUS AFTER 1ST TRIMEST GESTATION Rylee Scott APRN.INTEGRITY DIRECTOR [address] [address] Phone: tel: fax: [address] [address] Referral ID Status Reason Start Date Expiration Date V isits Requested Visits Authorized [id number] Closed Auto-Generate d Referral 08/02/2024 08/02/2025 1 1 Specialty Diagnoses / Procedures Referred By Contac t Referred To Contact [facility] Diagnoses Maternal care for isoimmunization, second trimester, single gestation Supervision of high risk in second trimester Procedures OBSTETRIC ULTRASOUND WHI US PREG UTERUS AFTER 1ST TRIMEST GESTATION Kayla Robb MD [address] [place] [address] Phone: tel: fax: [address] [address] Referral ID Status Reason Start Date Expiration Date V isits Requested Visits Authorized [id number] Closed Auto-Generate d Referral 11/07/2024 11/07/2025 10 1 Reason Comments Consult Specialty Diagnoses / Procedures Referred By Contac t Referred To Contact Diagnoses Maternal care for isoimmunization, second trimester, single gestation Procedures CONSULT TO MATERNAL MEDI OFFICE/OUTPATIENT [facility] 60 MINUTES Kayla Robb MD [address] [place] [address] Phone: tel: fax:[phone] Referral ID Status Reason Start Date Expiration Date V isits Requested Visits Authorized [id number] Closed PCP Requested Referral Auto-Generated Referral 11/07/2024 11/07/2025 1 1 Reason Comments OB Navigation and Pr egnancy Resources Reason Comments Care Specialty Diagnoses / Procedures Referred By Contac t Referred To Contact Diagnoses 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, second trimester, fetus 5 Procedures CONSULT TO MEDICAL GENETICS - MEDICAL GENETICS COUNSELING EACH 30 [place] [address] [place] [address] Phone: tel: fax: Genetic [address] [address] Referral ID Status Reason Start Date Expiration Date V isits Requested Visits Authorized [id number] Closed PCP Requested Referral Auto-Generated Referral 11/23/2024 11/23/2025 1 1 Reason Onset Date Comments Care 12/06/2024 Specialty Diagnoses / Procedures Referred By Contac t Referred To Contact [facility] Diagnoses Maternal care for isoimmunization, second trimester, single gestation (HCC) Supervision of high risk in second trimester (HCC) Procedures OBSTETRIC ULTRASOUND WHI US PREG UTERUS AFTER 1ST TRIMEST GESTATION Kayla Robb MD [address] [place] [address] Phone: tel: fax: [facility] [address] [place] [address] Reason Onset Date Comments Care 12/20/2024 Reason [...] Care Teams (unrecognized sec tion and content) Cook Chill Technician Relationship Specialty Start Date End Date Tereso Shaikh MD [address] [place] [address] PCP - General Internal Medicine 02/10/23 Cook Chill Technician Relationship Specialty Start Date End Date Tereso Shaikh MD [address] [place], [place] [address] PCP - General Internal Medicine 02/10/23 Cook Chill Technician Relationship Specialty Start Date End Date Tereso Shaikh MD [address] [place] [address] PCP - General Internal Medicine 02/10/23 Cook Chill Technician Relationship Specialty Start Date End Date Tereso Shaikh MD [address] [place] [address] PCP - General Internal Medicine 02/10/23 Cook Chill Technician Relationship Specialty Start Date End Date Tereso Shaikh MD [address] [place], [place] [id number] PCP - General Internal Medicine 02/10/23 Cook Chill Technician Relationship Specialty Start Date End Date Tereso Shaikh MD [address] [place] [address] PCP - General Internal Medicine 02/10/23 Maria Guadalupe Rivers, SANDSTONE SPLITTER.INTEGRITY DIRECTOR [address] [place] [address] Service Order Expediter Internal Medicine 08/14/24 Cook Chill Technician Relationship Specialty Start Date End Date Tereso Shaikh MD [address] [place] [address] PCP - General Internal Medicine 02/10/23 Maria Guadalupe Rivers, SANDSTONE SPLITTER.INTEGRITY DIRECTOR [address] [place] [address] Service Order Expediter Internal Medicine 08/14/24 Cook Chill Technician Relationship Specialty Start Date End Date Tereso Shaikh MD [address] [place] [address] PCP - General Internal Medicine 02/10/23 Maria Guadalupe Rivers, SANDSTONE SPLITTER.INTEGRITY DIRECTOR [address] [place] [address] Service Order Expediter Internal Medicine 08/14/24 Cook Chill Technician Relationship Specialty Start Date End Date Tereso Shaikh MD [address] [place] [address] PCP - General Internal Medicine 02/10/23 Maria Guadalupe Rivers, SANDSTONE SPLITTER.INTEGRITY DIRECTOR [address] [place] [address] Service Order Expediter Internal Medicine 08/14/24 Cook Chill Technician Relationship Specialty Start Date End Date Tereso Shaikh MD [address] [place] [address] PCP - General Internal Medicine 02/10/23 Maria Guadalupe Rivers, SANDSTONE SPLITTER.INTEGRITY DIRECTOR [address] [place] [address] Service Order Expediter Internal Medicine 08/14/24 Cook Chill Technician Relationship Specialty Start Date End Date Tereso Shaikh MD [address] [place] [address] PCP - General Internal Medicine 02/10/23 Maria Guadalupe Rivers, SANDSTONE SPLITTER.INTEGRITY DIRECTOR [address] [place] [address] Service Order Expediter Internal Medicine 08/14/24 Cook Chill Technician Relationship Specialty Start Date End Date Tereso Shaikh MD [address] [place] [address] PCP - General Internal Medicine 02/10/23 Maria Guadalupe Rivers, SANDSTONE SPLITTER.INTEGRITY DIRECTOR [address] [place] [address] Service Order Expediter Internal Medicine 08/14/24 Cook Chill Technician Relationship Specialty Start Date End Date Tereso Shaikh MD [address] [place] [address] PCP - General Internal Medicine 02/10/23 Maria Guadalupe Rivers, SANDSTONE SPLITTER.INTEGRITY DIRECTOR [address] [place] [address] Service Order Expediter Internal Medicine 08/14/24 Cook Chill Technician Relationship Specialty Start Date End Date Tereso Shaikh MD [address] [place] [address] PCP - General Internal Medicine 02/10/23 Maria Guadalupe Rivers, SANDSTONE SPLITTER.INTEGRITY DIRECTOR [address] [place] [address] Service Order Expediter Internal Medicine 08/14/24 Cook Chill Technician Relationship Specialty Start Date End Date Tereso Shaikh MD [address] [place] [address] PCP - General Internal Medicine 02/10/23 Maria Guadalupe Rivers, SANDSTONE SPLITTER.INTEGRITY DIRECTOR [address] [place] [address] Service Order Expediter Internal Medicine 08/14/24 Cook Chill Technician Relationship Specialty Start Date End Date Tereso Shaikh MD [address] [place] [address] PCP - General Internal Medicine 02/10/23 Maria Guadalupe Rivers, SANDSTONE SPLITTER.INTEGRITY DIRECTOR [address] [place] [address] Service Order Expediter Internal Medicine 08/14/24 Cook Chill Technician Relationship Specialty Start Date End Date Tereso Shaikh MD [address] [place] [address] PCP - General Internal Medicine 02/10/23 Maria Guadalupe Rivers, SANDSTONE SPLITTER.INTEGRITY DIRECTOR [address] [place] [address] Service Order Expediter Internal Medicine 08/14/24 Cook Chill Technician Relationship Specialty Start Date End Date Tereso Shaikh MD [address] [facility], [place] [address] PCP - General Internal Medicine 02/10/23 Maria Guadalupe Rivers, SANDSTONE SPLITTER.INTEGRITY DIRECTOR [address] [place] [address] Service Order Expediter Internal Medicine 08/14/24 Cook Chill Technician Relationship Specialty Start Date End Date Tereso Shaikh MD [address] [place] [address] PCP - General Internal Medicine 02/10/23 Maria Guadalupe Rivers, SANDSTONE SPLITTER.INTEGRITY DIRECTOR [address] [place] [address] Service Order Expediter Internal Medicine 08/14/24 Cook Chill Technician Relationship Specialty Start Date End Date Tereso Shaikh MD [address] [place] [address] PCP - General Internal Medicine 02/10/23 Maria Guadalupe Rivers, SANDSTONE SPLITTER.INTEGRITY DIRECTOR [address] [place] [address] Service Order Expediter Internal Medicine 08/14/24 Cook Chill Technician Relationship Specialty Start Date End Date Tereso Shaikh MD [address] [facility], [place] [address] PCP - General Internal Medicine 02/10/23 Maria Guadalupe Rivers, SANDSTONE SPLITTER.INTEGRITY DIRECTOR [address] [place] [address] Service Order Expediter Internal Medicine 08/14/24 Cook Chill Technician Relationship Specialty Start Date End Date Tereso Shaikh MD [address] [place], [place] [address] PCP - General Internal Medicine 02/10/23 Maria Guadalupe Rivers, SANDSTONE SPLITTER.INTEGRITY DIRECTOR [address] [place] [address] Service Order Expediter Internal Medicine 08/14/24 Cook Chill Technician Relationship Specialty Start Date End Date Tereso Shaikh MD [address] [place], [place] [address] PCP - General Internal Medicine 02/10/23 Maria Guadalupe Rivers, SANDSTONE SPLITTER.INTEGRITY DIRECTOR [address] [place] [address] Service Order Expediter Internal Medicine 08/14/24 Cook Chill Technician Relationship Specialty Start Date End Date Tereso Shaikh MD [address] [place], [place] [address] PCP - General Internal Medicine 02/10/23 Maria Guadalupe Rivers, SANDSTONE SPLITTER.INTEGRITY DIRECTOR [address] [place] [address] Service Order Expediter Internal Medicine 08/14/24 Cook Chill Technician Relationship Specialty Start Date End Date Tereso Shaikh MD [address] [place], [place] [address] PCP - General Internal Medicine 02/10/23 Maria Guadalupe Rivers, SANDSTONE SPLITTER.INTEGRITY DIRECTOR [address] [place] [address] Service Order Expediter Internal Medicine 08/14/24 Cook Chill Technician Relationship Specialty Start Date End Date Tereso Shaikh MD [address] [facility] [place] [address] PCP - General Internal Medicine 02/10/23 Maria Guadalupe Rivers, SANDSTONE SPLITTER.INTEGRITY DIRECTOR [address] [facility] [place] [address] Service Order Expediter Internal Medicine 08/14/24 Cook Chill Technician Relationship Specialty Start Date End Date Tereso Shaikh MD [address] [facility] [place] [address] PCP - General Internal Medicine 02/10/23 Maria Guadalupe Rivers, SANDSTONE SPLITTER.INTEGRITY DIRECTOR [address] [place] [address] Service Order Expediter Internal Medicine 08/14/24 Cook Chill Technician Relationship Specialty Start Date End Date Tereso Shaikh MD [address] [facility] [place] [address] PCP - General Internal Medicine 02/10/23 Maria Guadalupe Rivers, SANDSTONE SPLITTER.INTEGRITY DIRECTOR [address] [place] [address] Service Order Expediter Internal Medicine 08/14/24 Cook Chill Technician Relationship Specialty Start Date End Date eTreso Shaikh MD [address] [facility] [place] [address] PCP - General Internal Medicine 02/10/23 Maria Guadalupe Rivers, SANDSTONE SPLITTER.INTEGRITY DIRECTOR [address] [place] [address] Service Order Expediter Internal Medicine 08/14/24 Cook Chill Technician Relationship Specialty Start Date End Date Tereso Shaikh MD [address] [place], [place] [address] PCP - General Internal Medicine 02/10/23 Maria Guadalupe Rivers, SANDSTONE SPLITTER.INTEGRITY DIRECTOR [address] [place] [address] [facility] Internal Medicine 08/14/24 Cook Chill Technician Relationship Specialty Start Date End Date Tereso Shaikh MD [address] [place], [place] [address] PCP - General Internal Medicine 02/10/23 Maria Guadalupe Rivers, SANDSTONE SPLITTER.INTEGRITY DIRECTOR [address] [place] [address] [facility] Internal Medicine 08/14/24 Cook Chill Technician Relationship Specialty Start Date End Date Tereso Shaikh MD [address] [place] [address] PCP - General Internal Medicine 02/10/23 Maria Guadalupe Rivers, SANDSTONE SPLITTER.INTEGRITY DIRECTOR [address] [place] [address] [facility] Internal Medicine 08/14/24 Cook Chill Technician Relationship Specialty Start Date End Date Tereso Shaikh MD [address] [place], [place] [address] PCP - General Internal Medicine 02/10/23 Maria Guadalupe Rivers, SANDSTONE SPLITTER.INTEGRITY DIRECTOR [address] [place] [address] Service Order Expediter Internal Medicine 08/14/24 Cook Chill Technician Relationship Specialty Start Date End Date Tereso Shaikh MD [address] [place], [place] [address] PCP - General Internal Medicine 02/10/23 Maria Guadalupe Rivers, SANDSTONE SPLITTER.INTEGRITY DIRECTOR [address] [place] [address] Service Order Expediter Internal Medicine 08/14/24 Cook Chill Technician Relationship Specialty Start Date End Date Tereso Shaikh MD [address] [place] [address] PCP - General Internal Medicine 02/10/23 Maria Guadalupe Rivers, SANDSTONE SPLITTER.INTEGRITY DIRECTOR [address] [place] [address] Service Order Expediter Internal Medicine 08/14/24 Cook Chill Technician Relationship Specialty Start Date End Date Tereso Shaikh MD [address] [place] [address] PCP - General Internal Medicine 02/10/23 Maria Guadalupe Rivers, SANDSTONE SPLITTER.INTEGRITY DIRECTOR [address] [place] [address] [facility] Internal Medicine 08/14/24 Cook Chill Technician Relationship Specialty Start Date End Date Tereso Shaikh MD [address] [place], [place] [address] PCP - General Internal Medicine 02/10/23 Maria Guadalupe Rivers, SANDSTONE SPLITTER.INTEGRITY DIRECTOR [address] [place] [address] Service Order Expediter Internal Medicine 08/14/24 Cook Chill Technician Relationship Specialty Start Date End Date Tereso Shaikh MD [address] [place] [address] PCP - General Internal Medicine 02/10/23 Maria Guadalupe Rivers, SANDSTONE SPLITTER.INTEGRITY DIRECTOR [address] [place] [address] Service Order Expediter Internal Medicine 08/14/24 Cook Chill Technician Relationship Specialty Start Date End Date Tereso Shaikh MD [address] [place] [address] PCP - General Internal Medicine 02/10/23 Maria Guadalupe Rivers, SANDSTONE SPLITTER.INTEGRITY DIRECTOR [address] [place] [address] Service Order Expediter Internal Medicine 08/14/24 Cook Chill Technician Relationship Specialty Start Date End Date Tereso Shaikh MD [address] [place] [address] PCP - General Internal Medicine 02/10/23 Maria Guadalupe Rivers, SANDSTONE SPLITTER.INTEGRITY DIRECTOR [address] [place] [address] Service Order Expediter Internal Medicine 08/14/24 Cook Chill Technician Relationship Specialty Start Date End Date Tereso Shaikh MD [address] [place] [address] PCP - General Internal Medicine 02/10/23 Maria Guadalupe Rivers, SANDSTONE SPLITTER.INTEGRITY DIRECTOR [address] [place] [address] [facility] Internal Medicine 08/14/24 Cook Chill Technician Relationship Specialty Start Date End Date Tereso Shaikh MD [address] [place], [place] [address] PCP - General Internal Medicine 02/10/23 Maria Guadalupe Rivers, LENY.INTEGRITY DIRECTOR [address] [place], [place] [address] [facility] Internal [place] 08/14/24 FOR RECORDS PERTAINING TO PATIENTS WHO [...] BE BASED ON THE PRIMARY CLINICAL RECORDS. [facility] [employer] [facility]. provides no warranty or guarantee of the accuracy or completeness of information in this document.
[2025-03-17] MEDS: 0.9% Saline Lock 10 ML Syringe IV (07:50)
[2025-03-17] MEDS: Lactated Ringers 1,000 ML 999 ML IV (07:50)
[2025-03-17] MEDS: fentaNYL-bupivacaine (epidural) 100 ML BAG EPIDURAL ×2 (08:45→13:01)
[2025-03-17] MEDS: Lactated Ringers 1,000 ML 200 ML IV ×2 (08:55→13:01)
--- NOTE | 2025-03-17 09:53 | PCM.HP.OB ---
HPI - General General Date of Admission: 03/17/25 HPI Narrative AIRAM PRICE, is a 29 F who presents at 38w5d with CHANELL 03/26/25. . Presented with vaginal bleeding and increasing contractions. Observed overnight and had a smaller amount of bleeding and variable deceleration. Decision for admission and induction of labor. 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 Stimulant use disorder Substance induced mood disorder (spontaneous vaginal delivery) Hepatitis C, chronic, maternal, antepartum High risk multigravida Gonorrhea affecting MRSA infection HPV (human papilloma virus) infection Genital herpes affecting Chlamydia infection affecting Hepatitis Anxiety Encounter for screening laboratory testing for COVID-19 virus Lab test negative for COVID-19 virus Home Medications ?Medication ?Instructions ?Recorded ?Last Taken ?Type vitamins-iron fumarate 65 1 tab PO DAILY 03/17/25 Unknown History mg iron-folic acid 1 mg tablet (Mynatal-Z) valacyclovir 500 mg tablet 1,000 mg PO DAILY HSV 03/17/25 Unknown History (Valtrex) Allergy/AdvReac Type Severity Reaction Status Date / Time latex Allergy Hives Verified 03/22/23 10:32 shellfish derived Allergy Anaphylaxis Verified 03/22/23 10:32 Family History (Updated 03/22/23 @ 10:47 by Nadine Vera) Other Lupus Myocardial infarction Social History (Updated 03/22/23 @ 10:47 by Nadine Vera) Smoking Status: Current every day smoker tobacco type: cigars and e-cigarettes alcohol intake: never substance use type: does not use what type of physical activity do you participate in: walking History Elective abortions Hx Para 3 Spontaneous abortions Hx # Term Pregnancies Ectopic pregnancies Hx # Pregnancies Multiple births # of living children NST FHR Rate Baby A Baseline: 125 Variability:: Moderate Accelerations:: 15 x 15 Decelerations:: Variable FHR Category:: Category II Uterine Activity:: every 1-6 minutes ROS Constitutional Constitutional: Reports systems reviewed and no addt'l complaints, except as documented; Denies headache(s) Eyes Eyes: Denies acute decrease in peripheral vision, blurry vision or change in vision ENT HEENT: Reports systems reviewed and no addt'l complaints, except as documented Cardiovascular Cardiovascular: Denies chest pain or dizziness Respiratory/Chest Respiratory/Chest: Denies cough, dyspnea, dyspnea on exertion, shortness of breath at rest or shortness of breath with exertion Gastrointestinal Gastrointestinal: Denies abdominal pain, diarrhea, nausea or vomiting Genitourinary Genitourinary: Denies abdominal discomfort Musculoskeletal Musculoskeletal: Denies limited range of motion Integumentary Integumentary: Reports systems reviewed and no addt'l complaints, except as documented Neurologic Neurologic: Reports systems reviewed and no addt'l complaints, except as documented Psychiatric Psychiatric: Reports systems reviewed and no addt'l complaints, except as documented Endocrine Endocrinology: Reports systems reviewed and no addt'l complaints, except as documented Hematologic/Lymphatic Hematologic/Lymphatic: Reports systems reviewed and no addt'l complaints, except as documented Allergic/Immunologic Allergic/Immunologic: Reports systems reviewed and no addt'l complaints, except as documented Vital Signs Vital Signs Vital Signs: 03/16/25 22:31 03/16/25 22:31 03/16/25 22:31 Temperature Temperature Source Pulse Rate 103 H Respiratory Rate 14 Blood Pressure 106/66 BP Systolic 106 BP Diastolic 66 Pulse Ox 03/16/25 22:31 03/16/25 22:31 03/16/25 22:31 Temperature 97.9 F Temperature Source Pulse Rate Respiratory Rate Blood Pressure 103/84 H BP Systolic 103 BP Diastolic 84 Pulse Ox 99 03/16/25 22:31 03/16/25 22:31 03/16/25 22:31 Temperature Temperature Source Pulse Rate 100 Respiratory Rate 14 Blood Pressure BP Systolic BP Diastolic Pulse Ox 96 03/16/25 22:31 03/17/25 00:15 03/17/25 00:15 Temperature 97.9 F Temperature Source Temporal Pulse Rate Respiratory Rate 16 Blood Pressure BP Systolic BP Diastolic Pulse Ox 03/17/25 00:15 03/17/25 00:16 03/17/25 00:16 Temperature 98.3 F Temperature Source Pulse Rate 77 Respiratory Rate Blood Pressure 110/63 BP Systolic 110 BP Diastolic 63 Pulse Ox 03/17/25 04:49 03/17/25 04:49 03/17/25 04:50 Temperature Temperature Source Temporal Pulse Rate 79 Respiratory Rate Blood Pressure 136/61 H BP Systolic 136 BP Diastolic 61 Pulse Ox 03/17/25 04:50 03/17/25 04:50 03/17/25 04:50 Temperature 97.8 F Temperature Source Pulse Rate Respiratory Rate 16 Blood Pressure BP Systolic BP Diastolic Pulse Ox 97 03/17/25 07:23 03/17/25 07:23 03/17/25 07:23 Temperature Temperature Source Temporal Pulse Rate 69 Respiratory Rate Blood Pressure 99/56 L BP Systolic 99 BP Diastolic 56 Pulse Ox 03/17/25 07:23 03/17/25 07:23 03/17/25 07:23 Temperature 98.2 F Temperature Source Pulse Rate Respiratory Rate 16 Blood Pressure BP Systolic BP Diastolic Pulse Ox 98 03/17/25 08:28 03/17/25 08:28 03/17/25 08:29 Temperature Temperature Source Pulse Rate 81 Respiratory Rate Blood Pressure 139/63 H BP Systolic 139 BP Diastolic 63 Pulse Ox 93 03/17/25 08:29 03/17/25 08:34 03/17/25 08:34 Temperature Temperature Source Pulse Rate 85 75 Respiratory Rate Blood Pressure 120/60 BP Systolic 120 BP Diastolic 60 Pulse Ox 03/17/25 08:38 03/17/25 08:39 03/17/25 08:39 Temperature Temperature Source Pulse Rate 100 Respiratory Rate 18 Blood Pressure 126/72 H BP Systolic 126 BP Diastolic 72 Pulse Ox 03/17/25 08:44 03/17/25 08:44 03/17/25 08:44 Temperature Temperature Source Pulse Rate 95 Respiratory Rate 18 Blood Pressure 112/66 BP Systolic 112 BP Diastolic 66 Pulse Ox 03/17/25 08:50 03/17/25 08:50 03/17/25 08:50 Temperature Temperature Source Pulse Rate 93 Respiratory Rate 16 Blood Pressure 109/65 BP Systolic 109 BP Diastolic 65 Pulse Ox 03/17/25 08:55 03/17/25 08:55 03/17/25 09:01 Temperature Temperature Source Pulse Rate 80 Respiratory Rate Blood Pressure 106/55 L 103/56 L BP Systolic 106 103 BP Diastolic 55 56 Pulse Ox 03/17/25 09:01 03/17/25 09:04 03/17/25 09:04 Temperature Temperature Source Pulse Rate 78 80 Respiratory Rate Blood Pressure 98/57 L BP Systolic 98 BP Diastolic 57 Pulse Ox 03/17/25 09:04 03/17/25 09:08 03/17/25 09:09 Temperature Temperature Source Pulse Rate Respiratory Rate 16 18 Blood Pressure 96/53 L BP Systolic 96 BP Diastolic 53 Pulse Ox 03/17/25 09:09 03/17/25 09:14 03/17/25 09:14 Temperature Temperature Source Pulse Rate 76 76 Respiratory Rate Blood Pressure 102/55 L BP Systolic 102 BP Diastolic 55 Pulse Ox 03/17/25 09:15 03/17/25 09:15 03/17/25 09:19 Temperature Temperature Source Pulse Rate 86 Respiratory Rate Blood Pressure 100/53 L 106/58 L BP Systolic 100 106 BP Diastolic 53 58 Pulse Ox 03/17/25 09:19 03/17/25 09:25 03/17/25 09:25 Temperature Temperature Source Pulse Rate 81 68 Respiratory Rate Blood Pressure 94/51 L BP Systolic 94 BP Diastolic 51 Pulse Ox 03/17/25 09:48 03/17/25 09:48 03/17/25 09:51 Temperature Temperature Source Pulse Rate 98 Respiratory Rate Blood Pressure 111/59 L BP Systolic 111 BP Diastolic 59 Pulse Ox 91 03/17/25 09:51 Temperature Temperature Source Pulse Rate 93 Respiratory Rate Blood Pressure BP Systolic BP Diastolic Pulse Ox Weight Weight: 198 lb 10.184 oz Body Mass Index (BMI) 34.0 Physical Exam Const alert and oriented x3 General Appearance: cooperative Orientation / Consciousness: awake, oriented to person, oriented to place and oriented to time Exam Limitations: no limitations HEENT normocephalic Head and Scalp: normal to inspection, normocephalic and atraumatic Face and Sinus: normal facial exam Eyes General Eye: normal appearance of both eyes Neck full ROM Chest Chest: symmetrical chest wall rise Resp normal respiratory effort and normal air movement Auscultation: clear to auscultation bilaterally Cardio regular rate, regular rhythm, S1 normal heart sound, S2 normal heart sound, no murmurs, no rub, no gallops and no clicks GI normal to inspection, nondistended, normoactive bowel sounds and non-tender appearance of the vagina normal Bladder / Kidney Exam: no CVA tenderness Manual OB Exam: estimated gestational size appropriate, presentation cephalic, dilated 4, effaced 70, station -1 and other AROM moderate amount of clear fluid Back/Spine normal ROM Extremity normal to inspection and full ROM Skin no rashes or lesions noted Neuro oriented x3, CN's II-XII intact bilaterally and moves all extremities Sensorium / Orientation: awake, alert and oriented to person Motor Exam: clonus absent Deep Tendon Reflexes: Rt Patellar (L4): 2+ and Lt Patellar (L4): 2+ Labs Labs Labs: Blood Type O POSITIVE Antibody Screen POSITIVE H Hct 37.0 % (37-47) Hgb 12.3 g/dL (12.0-15.0) Obstetrics Ultrasound Syphilis Total Ab Nonreactive (Nonreactive) Rubella IgG Antibody 37.7 IU/mL Hep Bs Antigen Negative (Negative) Hepatitis C Ab (EIA) <0.1 s/co ratio (0.0-0.9) Rhogam given: No HIV negative Hep C positive, quant negative 09/15/24 HBsAG negative Rubella Immune RPR negative GC/CT negative Trich positive, repeat negative GBS negative O positive, anti E positive Assessment & Plan (1) Encounter for induction of labor: (2) Vaginal bleeding during : (3) Tobacco use affecting , antepartum: (4) History of drug abuse: (5) Depression: (6) Marijuana use during : (7) History of hepatitis C: (8) History of herpes genitalis: (9) History of depression: (10) History of blood transfusion: (11) 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 AROM, pitocin augmentation if needed 2) Routine labs 3) Continuous EFM 4) Pain management upon request 5) Epidural for pain management 6) Dr. Benitez [facility] physician and notified of patient status, above assessment, and plan.
--- NOTE | 2025-03-17 10:18 | NURSING ---
pt refused to give some answers on the picklist. Some information derived from chart.
[2025-03-17] MEDS: Oxytocin 15 Units/NS 250ml 15 UNITS/250 ML IV.SOLN 2 UNITS IV (11:10)
[2025-03-17] MEDS: Amnioinfusion- 0.9% NS 1,000 ML IV.SOLN. 1000 ML INTRA-UTER (12:40)
--- NOTE | 2025-03-17 14:37 | OB.VAGDELI_ITS ---
Assessment & Plan (1) Vaginal delivery: Maternal Data Information CHANELL Calculator Estimated Delivery Date Method Current WG Current Estimate 03/26/25 Manual 38w 5d Vaginal Delivery Maternal Presentation Maternal Presentation: Medically Indicated Induction Type of Induction: Pitocin and Amniotomy Medical Reason for Induction: Other (vaginal bleeding in ) Vaginal Delivery Information Procedure Performed: Spontaneous Vaginal Delivery Surgeon/Practitioner: Lorena Sharma Date of Procedure: 03/17/25 Pre-Procedure Diagnosis: Vaginal bleeding in , induction of labor Post-Procedure Diagnosis: Type of anesthesia: Epidural Estimated Blood Loss: 200ml Time of Delivery: 14:05 Findings Description of procedure: heart rate deceleration with rapid decent and complete cervical dilation. Epidural for pain management. of viable male over intact perineum APGARS 8,9 respectively. head delivered with body immediately forthcoming, CANx2, delivered through. Placed on maternal abdomen, strong cry. Mouth and nares suctioned for secretions. No cry, Cord doubly clamped and cut by FOB and passed to awaiting nursing staff, immediate strong cry. Pitocin started for active 3rd stage management. Placenta delivered intact via aj, 3 vessel cord intact. Perineum inspected and revealed intact. Fundus firm and hemostasis achieved. EBL 200ml. Vaginal sweep completed by me, sponge and instrument correct. Mom and baby stable, planning to bottle feed. Family bonding well. Kimberly notified of delivery. Presentation: Vertex and BETHANY Amniotic Membrane Rupture Type: Artificial Amniotic Fluid Description: Clear Placental Delivery Description: Spontaneous Placenta Disposition: [facility] Specimen collected: No Cord Vessel Description: 3 Vessels Cord Entanglement: Around neck x 2, loose Nuchal Cord Compression: Without compression A Gender: Male (1 minute): 8 (5 minute): 9 Delayed Cord Clamping: No Pharmacist [employer] building rental manager: No Post Vaginal Deli Medications given after delivery: IV Pitocin Episiotomy Description: None Laceration: None Complication Complications: No
[2025-03-17] MEDS: Oxytocin 15 Units/NS 250ml 15 UNITS/250 ML IV.SOLN 83 UNITS IV (14:38)
[2025-03-18] VITALS (8 sets, daily range): BP systolic 90–138; BP diastolic 55–65; PULSE 58–105; RESP 14–18; TEMP 36.3–36.8; O2SAT 97–98
[2025-03-18 07:16] LABS: Hematocrit 33.9 % (37-47); Hemoglobin 11.3 g/dL (12.0-15.0); Immature Granulocytes Count 0.030 X10^3/uL (0.0-0.0); Mean Corp Hgb Conc 33.3 g/dL (32-36); Mean Corpuscular Volume 89.9 fL (81-99); Mean Platelet Vol. 10.5 fl (6.2-12.0); NRBC Flagged by Analyzer 0 % (0-5); Platelet Count 207 K/mm3 (150-450); RBC Distribution Width CV 13.5 % (11.6-14.6); RBC Distribution Width SD 43.8 fl (35.1-43.9); Red Blood Count 3.77 M/mm3 (4.2-5.4); White Blood Count 11.2 K/mm3 (4.4-11.0)
--- NOTE | 2025-03-18 09:41 | PCM.PN.OB ---
Subjective Subjective Doing well per patient and nursing staff. Ambulating and taking PO without difficulty. Voiding and passing flatus. Pain controlled. , services for assistance. Denies headache, visual changes, chest pain, shortness of breath, leg pain or increased bleeding. Lochia normal. Objective Data Objective Data Vital Signs: Vital Signs Temp Pulse Resp BP Pulse Ox O2 Del Method 97.4 F L 77 18 112/55 L 98 Room Air 03/18/25 08:00 03/18/25 08:00 03/18/25 08:00 03/18/25 08:00 03/18/25 08:00 03/18/25 08:00 Oxygen Delivery Method Room Air Weight: 198 lb 10.184 oz Body Mass Index (BMI) 34.0 Intake & Output: Intake and Output for Last 24 Hours 03/16/25 03/17/25 03/18/25 23:59 23:59 23:59 Intake Total 2467.63 / 2467.63 Output Total 1850 / 1850 Balance 617.63 / 617.63 Lab / Micro Data 03/18/25 07:05 03/16/25 23:05 Labs: Laboratory Results - last 24 hr 03/17/25 09:40: Blood Type O POSITIVE, Antibody Screen POSITIVE, Antibody Identification ANTI-E, Crossmatch See Detail 03/18/25 07:05: WBC 11.2 H, RBC 3.77 L, Hgb 11.3 L, Hct 33.9 L, MCV 89.9, MCH 30.0, MCHC 33.3, RDW Std Deviation 43.8, RDW Coeff of Delilah 13.5, Plt Count 207, MPV 10.5, Immature Gran % (Auto) 0.300, Neut % (Auto) 64.9, Lymph % (Auto) 27.4, [place] % (Auto) 6.2, Eos % (Auto) 0.9, Baso % (Auto) 0.3, Absolute Neuts (auto) 7.3, Absolute Lymphs (auto) 3.05, Nucleated RBC % 0 ROS Constitutional Constitutional: Reports systems reviewed and no addt'l complaints, except as documented; Denies headache(s) Eyes Eyes: Denies acute decrease in peripheral vision, blurry vision or change in vision ENT HEENT: Reports systems reviewed and no addt'l complaints, except as documented Cardiovascular Cardiovascular: Denies chest pain or dizziness Respiratory/Chest Respiratory/Chest: Denies cough, dyspnea, dyspnea on exertion, shortness of breath at rest or shortness of breath with exertion Gastrointestinal Gastrointestinal: Denies abdominal pain, diarrhea, nausea or vomiting Genitourinary Genitourinary: Denies abdominal discomfort Musculoskeletal Musculoskeletal: Denies limited range of motion Integumentary Integumentary: Reports systems reviewed and no addt'l complaints, except as documented Neurologic Neurologic: Reports systems reviewed and no addt'l complaints, except as documented Psychiatric Psychiatric: Reports systems reviewed and no addt'l complaints, except as documented Endocrine Endocrinology: Reports systems reviewed and no addt'l complaints, except as documented Hematologic/Lymphatic Hematologic/Lymphatic: Reports systems reviewed and no addt'l complaints, except as documented Allergic/Immunologic Allergic/Immunologic: Reports systems reviewed and no addt'l complaints, except as documented Physical Exam Const alert and oriented x3 General Appearance: cooperative Orientation / Consciousness: awake, oriented to person, oriented to place and oriented to time Exam Limitations: no limitations HEENT normocephalic Head and Scalp: normal to inspection, normocephalic and atraumatic Face and Sinus: normal facial exam Eyes General Eye: normal appearance of both eyes Neck full ROM Chest Chest: symmetrical chest wall rise Resp normal respiratory effort and normal air movement Auscultation: clear to auscultation bilaterally Cardio regular rate, regular rhythm, S1 normal heart sound, S2 normal heart sound, no murmurs, no rub, no gallops and no clicks GI normal to inspection, nondistended, normoactive bowel sounds and non-tender GI Narrative: Fundus firm 2 below U appearance of the vagina normal Narrative: Normal lochia rubra Bladder / Kidney Exam: no CVA tenderness Back/Spine normal ROM Extremity normal to inspection and full ROM Skin no rashes or lesions noted Neuro oriented x3, CN's II-XII intact bilaterally and moves all extremities Sensorium / Orientation: awake, alert and oriented to person Motor Exam: clonus absent Deep Tendon Reflexes: Rt Patellar (L4): 2+ and Lt Patellar (L4): 2+ Assessment & Plan (1) Vaginal delivery: PLAN: Plan 1) Routine care, PPD #1 2) Vitals signs stable 3) Pain controlled 4) , services PRN 5) D/C home 6) Follow up in 2 weeks and 6 weeks
--- NOTE | 2025-03-18 09:43 | PCM.DC.SUM ---
Providers Date of Admission: 03/17/25 Primary Care Physician: Abena Primary Care Phys Reason For Visit: LABOR AND DELIVERY Diagnosis Discharge Diagnosis (1) Vaginal delivery: Status: Acute Code(s): O80 - Encounter for full-term uncomplicated delivery Plan 1) Routine care, PPD #1 2) Vitals signs stable 3) Pain controlled 4) , services PRN 5) D/C home 6) Follow up in 2 weeks and 6 weeks Medications at Discharge Home Medications vitamins-iron fumarate 65 mg iron-folic acid 1 mg tablet (Mynatal-Z) 1 tab PO DAILY 03/17/25 valacyclovir 500 mg tablet (Valtrex) 1,000 mg PO DAILY HSV 03/17/25 acetaminophen 500 mg tablet 1,000 mg (2 x 500 mg) PO Q6H PRN PRN Pain 1-10 Or Fever #0 tabs 03/18/25 ibuprofen 600 mg tablet 600 mg PO Q6H PRN PRN Pain Score 1-10 #30 tabs 03/18/25 Weight / BMI Weight Weight: 198 lb 10.184 oz Body Mass Index (BMI) 34.0 ABG / Lab / Microbiology Data 03/18/25 07:05 03/16/25 23:05 Laboratory: Laboratory Results - last 24 hr 03/17/25 09:40: Blood Type O POSITIVE, Antibody Screen POSITIVE, Antibody Identification ANTI-E, Crossmatch See Detail 03/18/25 07:05: WBC 11.2 H, RBC 3.77 L, Hgb 11.3 L, Hct 33.9 L, MCV 89.9, MCH 30.0, MCHC 33.3, RDW Std Deviation 43.8, RDW Coeff of Delilah 13.5, Plt Count 207, MPV 10.5, Immature Gran % (Auto) 0.300, Neut % (Auto) 64.9, Lymph % (Auto) 27.4, [place] % (Auto) 6.2, Eos % (Auto) 0.9, Baso % (Auto) 0.3, Absolute Neuts (auto) 7.3, Absolute Lymphs (auto) 3.05, Nucleated RBC % 0 D/C Instructions Discharge Activity: Return to Normal Activity, May Drive, May Shower and May Take a Tub Bath May resume sexual activity in: 6 weeks Weight Bearing Status: Full weight bearing Call your doctor if you observe: Fever of 101 or Higher, Inability to urinate, Using more than 1 pad per hour, Shortness of breath, Chest pain, Increased palpitations (irregular heartbeat), Calf discomfort and Uncontrolled pain DC O2, CPAP, BIPAP Needs Home O2 Discharge instructions: No Please Follow Up With: Lorena Sharma CNM When: 2 week virtual visit and 6 week visit Meaningful Use Info Meaningful Use Meaningful Use Diagnoses (Choose all that apply): None applicable Discharge Plan Admission Admit Date/Time: 03/17/25 07:30 Primary Reason for Your Visit: Vaginal Delivery Attending Provider: Lorena Sharma Primary Care Provider: Aby PhysicianAbena Primary Discharge Orders/Prescriptions Prescriptions: New acetaminophen 500 mg Tablet 1,000 mg PO Q6H PRN PRN (Reason: Pain 1-10 Or Fever) Qty: 0 0RF ibuprofen 600 mg Tablet 600 mg PO Q6H PRN PRN (Reason: Pain Score 1-10) Qty: 30 0RF Continued valacyclovir [Valtrex] 500 mg tablet 1,000 mg PO DAILY No Action Mynatal-Z 65 mg iron- 1 mg tablet 1 tab PO DAILY Referrals / Follow Up: Care Physician,No Primary [Primary Care Provider] - Disposition Disposition (needs filled in before D/C Order can be placed): Home, Self Care
--- NOTE | 2025-03-18 12:10 | CASEMGMT ---
Social Work Assessment Labor and Delivery Unit Patient Address: [address] [place] [id number] Phone number: Date of Referral: 03/17/25 Time of Referral: 10:11 Referred By: Lorena Sharma Date of Intervention: 03/18/25 Time of Intervention: 12:08 Reason for Referral: Substance Abuse History obtained from: Medical records, mother of baby (MOB) and father of baby (FOB).? Household composition: MOB, MOB?s [id number] son Logan Graf, and MOB and FOB?s son Louis Singleton Jr., who will be called ?KJ?, born on 03/17/25. MOB has 2 other children who do not live with her: 13 year-old son, Brett Graf (has been living with his maternal grandmother in [place] since the age of 3, and a daughter (MOB stated she did not want to talk about her daughter other than to say it was a closed adoption. No other details were given). MOB stated all of her children have different fathers. FOB (Louis Singleton, age 36), rents a room next door to the MOB in a boarding house and stated he often times spends the night with the MOB and has slept on the couch just to make sure the MOB has been doing ok while .? FOB stated it is their hope that they can all get a place together one day. Patient's parent/guardian status: MOB and FOB have been together ?since last fall? and are not . ???MOB denied any previous or current issues of domestic violence and described a positive relationship with the FOB. MOB and FOB both denied having any other children not already mentioned. Medical History: : 5, Para, now 4. MOB had 1 SAB on 02/02/15. MOB received care (PNC) through [facility] beginning at 6 weeks and 2 days and visits were observed to be routine. Apgars: 8 and 9. Weight: 7lbs, 3oz. Marine Electrician Helper: Dr. Lynn. Educational Status: MOB and FOB denied any issues with reading, writing or learning comprehension. MOB and FOB both earned their GED and the FOB reported he earned ?some? college credits. Financial Status: MOB and FOB reported that their income is sufficient to meet the needs of their family at this time. MOB is currently employed full-time at [employer] and the FOB is currently employed full-time at [employer]. DARLENE reported she is on maternity leave until May. Infant Supplies: MOB and FOB reported they have the supplies they need for baby at this time including but not limited to: Car seat, bassinet, crib, diapers, bottles, and clothing. Childcare/Caregiver(s): DARLENE reported that will be put in daycare once she returns to work. Transportation: Both MOB and FOB are licensed drivers and have a reliable vehicle to get baby to and from all medical appointments. MOB and FOB denied any issues/barriers to transportation at this time. Programs/Agencies Involved: DARLENE is currently receiving Medicaid and [employer] [place] through the Department of job and Family Services. [facility] is involved. DARLENE reported she has previous involvement with Children Services, MOB and FOB both have a legal history; DARLENE has been in long term and the FOB did not elaborate with the extent of his legal history. Both MOB and FOB became slightly agitated and defensive when talking about their past. DARLENE also used to be on probation. MOB and FOB both have a history of being involved with counseling. DARLENE was involved with [facility] for 7-8 years and stopped because she felt she no longer needed the services they offered. KIMBERLY reported he was involved in counseling with [facility] in [place] from the ages of 14-16 where he participated in family therapy. DARLENE also reported [facility] and [facility]) are also involved with her son Logan. Children Services/Legal Issues: DARLENE reported she has a history of Children Services involvement and stated her cases were investigated, unsubstantiated and closed. MOB also both have a legal history; MOB has served time in long term and has had a information assurance officer.? FOXavi did not disclose the details of his legal involvement. Behavioral Health Issues:? Mental Health History: ?DARLENE has a history of anxiety, depression, PPD, Bipolar and substance induced mood disorder. ?DARLENE reported she was treated at one time for her PPD, however stopped taking her medication once she started feeling better and hasn?t been on it since. MOB reported she smokes marijuana to treat her anxiety. ?Substance Use History:?? MOB and FOB both have a history of drug and alcohol abuse. MOB has a history of abusing marijuana, heroin, ?methamphetamine, amphetamine, and ecstasy.? MOB has been diagnosed with a Stimulant Use Disorder. ?MOB reported that with the exception of marijuana, she has been clean since 2021. MOB admitted she smoked marijuana throughout her and as recent as 2 days ago due to pain. ?MOB also reported she stopped vaping and smoked cigarettes 4 months into her but then stopped. FOB reported he has a history of abusing methamphetamines. FOB also reported he has been sober for 5 years. ?Family History:?? MOB reported her mother has a history of anxiety and ?probably? depression and bi-polar. MOB reported that her ?whole family? except for her grandma abused drugs and alcohol however are all sober. KIMBERLY described his half-sister as ?paranoid?, stated his father was a drug addict and alcoholic, and FOB?s sister abused opioids. FOB stated his side of the family is also sober. ?Drug Screens:? MOB?s screens were all negative from 03/16/25 with the exception of marijuana which is showing as still pending. ?s urine was negative and meconium results are pending from 03/18/25. ??Dental Lab Technician administered the [place] Depression Scale (EPDS). MOB?s score was a 5.? Dental Lab Technician provided education about the score which the MOB verbalized she understood. Family/Social Stressors:?? Denied. Support Systems:? MOB identified her biggest support as the FOB, her mother, her grandmother (although both live in [place]), MOB?s friend, FOB?s mother and FOB?s sister.? MOB reported they have a lot of friend and family support. Depression/Shaken Baby/Safe Sleeping: Dental Lab Technician provided verbal and written education on PPD, risk factors for PPD, Safe Sleeping and Shaken Baby.? MOB and FOB both verbalized an understanding.??? ASSESSMENT: MOB and FOB provided consent to social work visit. Upon arrival, the MOB was changing baby?s diaper and the FOB was close-by, also by baby and assisting with the diaper change. MOB and FOB were both very cooperative. Both were verbally engaged. Dental Lab Technician observed positive interaction between the MOB and FOB as well as towards . MOB and FOB were keeping track of diaper changes, feedings and how much baby was eating during each feeding.? At one point, baby began to cry, and the FOB picked up to console and then handed to the MOB to feed. ?At the end of the assessment, Dental Lab Technician requested to speak with the MOB alone, which she and the FOB were both agreeable to. MOB reported feeling safe in her home and denied any previous or current domestic violence, unmanaged mental health issues either with herself or with the FOB, and also denied any? concerns with drug or alcohol abuse either with herself or with the FOB as well as any unmanaged mantal health concerns. Safe Plan of Care for related to substance use: MOB reported she keeps her marijuana and any paraphernalia stored in a safe/secure/inaccessible place and does not smoke in the house. Dental Lab Technician provided education also about drug use and supervision issues which MOB verbalized she understood. PLAN: For MOB and baby to be discharged when medically ready. No other services requested or indicated. Per protocol, Dental Lab Technician will make a referral to [facility] due to drug abuse during . Dental Lab Technician shared that with the MOB which she stated she is not concerned about. Lachelle Baxter, REAL TIME TRADER, TOP LIFTER
--- NOTE | 2025-03-18 22:15 | CASEMGMT ---
Social Work: Healthcare Account Manager made phone contact with [facility] worker Apryl and made a referral due to drug abuse during . Lachelle Baxter, ASSOCIATE PUBLISHER, HOUSEHOLD APPLIANCES SERVICE TECHNICIAN
[2025-03-21 17:08] LABS: THC GC/MS Conf 102 ng/mL (Cutoff=10)
== END 2025-03-18 15:20 | disposition home or self-care (01) | DRG 560 ==
LOC: WPOUT 07:35 → WP 07:35
PROVIDERS: Admitting Provider Advanced Practice Midwife; Visit Provider Advanced Practice Midwife
DX: O46.93 Antepartum hemorrhage, unspecified, third trimester (principal); Z37.0 Single live birth; O99.344 Other mental disorders complicating childbirth; F12.90 Cannabis use, unspecified, uncomplicated; F32.A Depression, unspecified; O99.324 Drug use complicating childbirth; F17.210 Nicotine dependence, cigarettes, uncomplicated; F17.290 Nicotine dependence, other tobacco product, uncomplicated; O76 Abnormality in fetal heart rate and rhythm complicating labor and delivery; O69.81X0 Labor and delivery complicated by cord around neck, without compression, not applicable or unspecified; O36.0930 Maternal care for other rhesus isoimmunization, third trimester, not applicable or unspecified; O99.334 Smoking (tobacco) complicating childbirth; Z86.19 Personal history of other infectious and parasitic diseases; Z3A.38 38 weeks gestation of pregnancy; Z79.899 Other long term (current) drug therapy
CPT/HCPCS: 36415; 59025; 59050; 80053; 80307; 85025; 85384; 85610; 85730; 86780; 86850; 86870; 86900; 86901; 86920; 86922; 99221; A4216; G0378

== ENCOUNTER 2025-05-11 05:43 | Day surgery (SDC) | payer MEDICAID, SELFPAY ==
[2025-05-11] VITALS (13 sets, daily range): BP systolic 83–113; BP diastolic 43–72; PULSE 38–58; RESP 14–18; TEMP 36.4–36.6; O2SAT 95–100; BMI 32.9
--- OUTSIDE RECORDS SUMMARY | 2025-05-11 06:00 | XMS RPT_ITS | CCD ---
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 Name Role Phone PROVIDER, UNKNOWN Unavailable Unavailable No, PCP Unavailable Unavailable Tashia Dixon Unavailable Unavailable BALGIL SHEFFIELD Unavailable Unavailable PHYSICIAN, NONE Unavailable Unavailable Unavailable Primary Care Provider Unavailabl e Care Physician, No Primary Primary Care Provider Unavailable Care Physician, No Primary Referring Provider Un available WELLINGTON Khan Attending Provider [phone] Unavailable Primary Care Provider Unavailabl e Unavailable Primary Care Provider UnavailTereso Mcelroy MD Primary Care Provider Tereso Shaikh MD Primary Care Provider Tita MICHELE.ELECTRICAL WIRER, Maria Guadalupe M Unavailable TERESO SHAIKH Primary Care Unavailable WENDI ROBB Referring Unavailable Lorena Sharma Attending Unavailable Lorena Sharma Admitting Unavailable Care Physician, No Primary Primary Care Unava ilable Lorena Sharma Referring Unavailable Care Physician, No Primary Primary Care Unava ilable Wendi Robb Referring Unavailable Wendi Robb Attending Unavailable Wendi Robb Admitting Unavailable Care Physician, No Primary Primary Care Unava ilable Wendi Robb Attending Unavailable TERESO SHAIKH Primary Care Unavailable JOSE ROBBCA Colt Referring Unavailable LACHELLE HICKMAN Attending Unavailable TERESO SHAIKH Primary Care Unavailable WENDI ROBB Referring Unavailable LACHELLE HICKMAN Attending Unavailable TERESO SHAIKH Primary Care Unavailable ROSALINDA, RYLEE Referring Unavailable TERESO SHAIKH Primary Care Unavailable ROSALINDA, RYLEE Referring Unavailable WENDI ROBB Attending Unavailable TERESO SHAIKH Primary Care Unavailable WENDI ROBB Attending Unavailable SHAIKH, JEREMIAS Primary Care Unavailable WENDI ROBB Attending Unavailable SHAIKH, JEREMIAS Primary Care Unavailable WENDI ROBB Referring Unavailable WENDI ROBB Attending Unavailable SHAIKH, JEREMIAS Primary Care Unavailable LACHELLE HICKMAN Attending Unavailable SHAIKH, JEREMIAS Primary Care Unavailable LORENA SHARMA Attending Unavailable SHAIKH, JEREMIAS Primary Care Unavailable WENDI ROBB Referring Unavailable SHAIKH, JEREMIAS Primary Care Unavailable SHAIKH, JEREMIAS Primary Care Unavailable LACHELLE HICKMAN Referring Unavailable ROXANNE CORDOBA Attending Unavailable SHAIKH, JEREMIAS Primary Care Unavailable ROXANNE CORDOBA Referring Unavailable ROXANNE CORDOBA Attending Unavailable SHAIKH, JEREMIAS Primary Care Unavailable WENDI ROBB Referring Unavailable SHAIKH, JEREMIAS Primary Care Unavailable BERNARDO COON Attending Unavailable SHAIKH, JEREMIAS Primary Care Unavailable WENDI ROBB Attending Unavailable SHAIKH, JEREMIAS Primary Care Unavailable RYLEE SCOTT Attending Unavailable SHAIKH, JEREMIAS Primary Care Unavailable RYLEE SCOTT Referring Unavailable SHAIKH, JEREMIAS Primary Care Unavailable RYLEE SCOTT Referring Unavailable WENDI ROBB Attending Unavailable SHAIKH, JEREMIAS Primary Care Unavailable WENDI ROBB Referring Unavailable EMILY RICHMOND Attending Unavail able SHAIKH, JEREMIAS Primary Care Unavailable WENDI ROBB Referring Unavailable SHAIKH, JEREMIAS Primary Care Unavailable WENDI ROBB Referring Unavailable SHAIKH, JEREMIAS Primary Care Unavailable RYLEE SCOTT Referring Unavailable SHAIKH, JEREMIAS Primary Care Unavailable JOSE ROBBCA Colt Referring Unavailable WENDI ROBB Attending Unavailable SHAIKH, JEREMIAS Primary Care Unavailable WENDI ROBB Attending Unavailable SHAIKH, JEREMIAS Primary Care Unavailable JOSE ROBBCA Colt Referring Unavailable SHAIKH, JEREMIAS Primary Care Unavailable JOSE ROBBCA Colt Referring Unavailable LACHELLE KRAMER Attending Unavailable SHAIKH, JEREMIAS Primary Care Unavailable SELF Referring Unavailable WENDI ROBB Attending Unavailable SHAIKH, JEREMIAS Primary Care Unavailable LORENA SHARMA Referring Unavailable SHAIKH, JEREMIAS Primary Care Unavailable JOSE ROBBCA Colt Referring Unavailable WENDI ROBB Attending Unavailable TERESO SHAIKH Primary Care Unavailable Allergies Allergy Classification Reported Allergen(s) Allergy Type Date of Onset Reaction(s) Facility (20 sources) Latex; Translations: [LATEX] Drug Allergy 6 Hives, Swelling [facility] Work Phone: (20 sources) Shellfish; Translations: [SHELLFISH DERIVED] Drug Allergy 6 Rash, Swelling [facility] Work Phone: (1 source) Latex Drug allergy (disorder) 5 [facility] Repository Medications Current Medications Medication Drug Class(es) Dates Sig (Normalized) Sig (Original) [id number] 200 actuat albuterol 0.09 mg/actuat metered dose [...] on above: Take 1 tablet by latanya two times a day for 5 days. fluconazole 150 mg oral tablet (3 sources) Azole Antifungal Start: 2024 End: 2024 [...] route twic e daily for 14 days. ibuprofen 600 mg oral tablet (1 source) Nonsteroidal Anti-inflammatory Drug Start: 2024 take 1 tablet by mouth every six hours as needed for pain ibuprofen (MOTRIN) 600 mg tablet 600 mg orally every 6 hours as needed As Needed for Pain Score 1-10 03/18/2025 Active Inhalational Spacing Device (1 source) Start: 2024 [...] on above: Take 1 capsule by mo uth once daily. FLORAJEN WOMEN. If on antibiotic, take at least 1-2 hours before or after antibiotic. KEEP REFRIGERATED metroNIDAZOLE 500 mg oral tablet (6 sources) Nitroimidazole Antimicrobial Start: 03-15-20 End: 03-22-20 [...] days. miconazole nitrate 20 mg/ml vaginal cream (3 sources) Azole Antifungal Start: 03-15-2025 End: 03-22-2025 [...] on above: Take 2 tablets by mo [facility] once daily for 4 days. Take daily [...] tablet by mouth once daily. 30 tablet 11 09/22/2024 Active Start: 09-22-2024 take 1 tablet by latanya th once daily Vitamin w/ Iron (PNV NO. 72, W/ IRON,) 27 mg iron- 1 mg Indications: Encounter for supervision of high risk in first trimester, antepartum Take 1 tablet by mouth once daily. 30 tablet 11 09/22/2024 Active prochlorperazine 10 mg oral tablet (3 sources) Phenothiazine Start: 04-24-2022 End: 05-25-2022 take 1 tablet by mouth every six hours as needed prochlorperazine (COMPAZINE) 10 mg tablet Take 1 tablet by mouth every 6 hours as needed (nausea). 30 tablet 1 04/24/2022 05/25/2022 Discontinued (Other) Comment on above: Take 1 tablet by latanya th every 6 hours as needed (nausea). sertraline 25 mg oral tablet (3 sources) Serotonin Reuptake Inhibitor Start: 04-04-2025 take 1 tablet by mouth once daily sertraline (ZOLOFT) 25 mg tablet Take 1 tablet by mouth once daily. 30 tablet 11 04/04/2025 Active valACYclovir 1000 mg oral tablet (10 sources) Herpesvirus Nucleoside Analog DNA Polymerase Inhibitor, [...] release oral tablet (12 sources) Start: 09-13-19 25 End: 11-23-19 25 doxylamine-pyridoxi ne, vit B6, (DICLEGIS) 10-10 mg [...] (11 sources) Serotonin Reuptake Inhibitor Start: 09-09-19 23 End: 12-02-19 23 take 1 tablet by mouth once daily escitalopram oxalate (LEXAPRO) 10 mg tablet Take 1 tablet by mouth once daily. 30 tablet 1 09/09/2022 12/01/2022 Discontinued Comment on above: Take 1 tablet by latanya th once daily. glecaprevir 100 mg / pibrentasvir 40 mg oral tablet (10 sources) Start: 01-06-20 End: 08-02-20 take 3 tablets by mouth once daily at mealtime glecaprevir-pibrent asvir (MAVYRET) 100-40 mg tablet Indications: Chronic hepatitis C without hepatic coma (HCC) Take 3 tablets by mouth once daily. Take with food. 84 tablet 1 01/05/2023 08/02/2024 Discontinued Comment on above: Take 3 tablets by mo [facility] once daily. Take with food. 24 hr [...] oral tablet (7 sources) Start: 3 End: take 1 tablet by mouth once daily Norethindrone, Contraceptive, (ORTHO MICRONOR) 0.35 mg tablet Take 1 tablet by mouth once daily. 28 tablet 1 03/26/2023 08/02/2024 Discontinued Start: 01-07-2023 take 1 tablet by latanya once daily Norethindrone, Contraceptive, (ORTHO MICRONOR) 0.35 [...] as needed for nausea/vomiting. PNV/iron/folic acid ( QROITVW-CWXI-UP ORAL) (20 sources) End: 3 take 1 tablet by mouth once daily PNV/iron/folic acid ( XRCZQSY-RSDD-JY ORAL) Take 1 tablet by mouth once daily. 0 09/09/2022 Discontinued (Other) take 1 tablet by mouth once caitlin y PNV/iron/folic acid ( IGLABYX-IWBT-XX ORAL) Take 1 tablet by mouth once daily. 0 Active Comment on above: Take 1 tablet by latanya th once daily. vit 33-mxqn-lunuz-dha (SELECT-OB+DHA) 29 mg iron-1 mg -250 mg (8 sources) Start: 09-13-2024 End: 09-22-2024 vit 41-wjvg-pmiav-dha (SELECT-OB+DHA) 29 mg iron-1 mg -250 mg Indications: Encounter for supervision of high risk in first trimester, antepartum Take by mouth as directed. Take 1 tablet and 1 capsule by mouth daily. 60 Each 09/13/2024 09/22/2024 Discontinued Start: 09-13-2024 vit 3 8-urja-swezn-dha (SELECT-OB+DHA) 29 mg iron-1 mg -250 mg Indications: Encounter for supervision of high risk in first trimester, antepartum Take by mouth as directed. Take 1 tablet and 1 capsule by mouth daily. 60 Each 09/13/2024 Active End: 09-13-2024 vit 68-bhuu-fkazk-d aggarwal (SELECT-OB+DHA) 29 mg iron-1 mg -250 mg Take by mouth as directed. Take 1 tablet and 1 capsule by mouth daily. 09/13/2024 Discontinued vit 33- qshi-bsqlm-sfg (SELECT-OB+DHA) 29 mg iron-1 mg -250 mg Take by mouth as directed. Take 1 tablet and 1 capsule by mouth daily. Active Problems Active Problems Problem Classification Problem Date Documented Date Episodic/Chronic Abdominal pain (5 sources) Pain in pelvis; Translations: [Pelvic and perineal pain] Episodic Anxiety disorders (20 sources) Anxiety disorder; Translations: [Anxiety disorder, unspecified] Onset: 02-16-2023 02-16-2023 Chronic Disorders of teeth and jaw (5 sources) Toothache; Translations: [Other specified disorders of teeth and supporting structures] Episodic Hemorrhage during ; abruptio placenta; placenta previa (5 sources) Threatened miscarriage in first trimester; Translations: [Threatened ] Episodic Hepatitis (20 sources) Hepatitis C carrier; Translations: [Chronic viral hepatitis C] Onset: 01-02-2022 Chronic Immunizations and screening for infectious disease (20 sources) Contact with or exposure to other viral diseases; Translations: [Lab test negative for COVID-19 virus] Onset: 02-27-2022 Resolved: 09-09-2022 Episodic Inflammation; infection of eye (except that caused by tuberculosis or sexually transmitteddisease) (5 sources) Conjunctivitis; Translations: [Unspecified conjunctivitis] Episodic Inflammatory diseases of female pelvic organs (9 sources) Bacterial vaginosis; Translations: [Acute vaginitis] Onset: 03-15-2025 03-15-2025 Episodic Miscellaneous mental health disorders (2 sources) depression; Translations: [ depression] Onset: 04-04-2025 04-04-2025 Episodic Mood disorders (20 sources) Depressive disorder; Translations: [Depression] Onset: 02-16-2023 02-16-2023 Chronic Mood disorders (1 source) Mood disorders; Translations: [Depression, unspecified depression type] Onset: 08-02-2024 Mycoses (9 sources) Candidiasis of vagina; Translations: [Yeast vaginitis] Onset: 03-15-2025 03-15-2025 Episodic Nausea and vomiting (4 sources) Nausea and vomiting; Translations: [Nausea with vomiting, unspecified] Episodic Other complications of (2 sources) Viral [...] or unspecified] 11-22-2024 Episodic Other complications of (1 source) Other specified related conditions, third trimester; Translations: [Vaginal discharge during in third trimester (HCC)] Onset: 03-13-2025 Episodic Other female genital disorders (5 sources) [...] associated with female genital organs] Episodic Other female genital disorders (1 source) Other specified noninflammatory disorders of vagina; Translations: [Vaginal discharge during in third trimester (HCC)] Onset: 03-13-2025 Episodic Other lower respiratory disease (1 source) Cough; Translations: [Acute cough] 07-05-2024 Episodic Other nutritional; endocrine; and metabolic disorders (5 sources) Obese class I; Translations: [Obesity, unspecified] Onset: 02-16-2023 02-16-2023 Chronic Other and delivery including normal (20 sources) Normal ; Translations: [Encounter for supervision [...] 01-31-2025 Episodic Residual codes; unclassified (1 source) Gestation period, 38 weeks; Translations: [38 weeks gestation of ] 03-13-2025 Episodic Residual codes; unclassified (1 source) 38 weeks gestation of ; Translations: [38 weeks gestation of (HCC)] Onset: 03-13-2025 Episodic Residual codes; unclassified (1 source) 36 weeks gestation of ; Translations: [36 weeks gestation of (HCC)] Onset: 03-01-2025 Episodic Residual codes; unclassified (1 source) 34 weeks gestation of ; Translations: [34 weeks gestation of (HCC)] Onset: 02-14-2025 Episodic Substance-related disorders (20 sources) Other stimulant abuse, uncomplicated; Translations: [Nicotine dependence, cigarettes, uncomplicated] Onset: 04-22-2016 Resolved: 01-02-2022 09-02-2021 Chronic Unclassified (13 sources) Abnormal results of thyroid function studies; Translations: [Patient encounter status] Onset: 07-13-2017 Episodic Unclassified (20 sources) [facility] Education - COMMON Onset: 08-02-2024 08-02-2024 Unclassified (20 sources) Education - [place] Onset: 08-02-2024 08-02-2024 Past or Other Problems Problem Classification Problem Date Documented Date Episodic/Chronic Bacterial infection (20 sources) Methicillin resistant Staphylococcus aureus infection as the cause of diseases classified elsewhere; Translations: [Bacteria present] Onset: 05-04-2016 Resolved: 01-02-2022 05-04-2016 Episodic Contraceptive and procreative management (20 sources) Patient encounter status; Translations: [Encounter for initial prescription of contraceptive pills] Onset: 12-20-2024 Episodic Hepatitis (2 sources) Unspecified viral hepatitis C without hepatic coma; Translations: [Unspecified viral hepatitis C without hepatic coma] Onset: 07-13-2017 Episodic Other complications of (20 sources) Late [...] 09-01-2021 Episodic Other complications of (20 sources) High [...] Resolved: 09-09-2022 04-29-2016 Episodic Other complications of (20 sources) Chlamydia trachomatis infection in ; Translations: [Other maternal infectious and parasitic diseases complicating , unspecified trimester] Onset: 01-14-2016 Resolved: 01-14-2016 09-01-2021 Episodic Other complications of (20 sources) Vomiting of , unspecified; Translations: [Unspecified vomiting of , unspecified as to episode of care or not applicable] Onset: 08-02-2024 08-02-2024 Episodic Other complications of (3 sources) Supervision of high risk , unspecified, second trimester; Translations: [Supervision of high risk in second trimester] Onset: 11-22-2024 Episodic Other complications of (3 sources) Maternal care for other rhesus isoimmunization, second trimester, not applicable or unspecified; Translations: [Anti-E isoimmunization affecting in second trimester, single or unspecified fetus] Onset: 09-18-2024 Episodic Other complications of (3 sources) Maternal [...] (HCC)] Onset: 01-03-2025 Episodic Other complications of (2 sources) Smoking (tobacco) complicating , first trimester; Translations: [Tobacco smoking complicating in first trimester (HCC)] Onset: 08-02-2024 Episodic Other complications of (1 source) Smoking (tobacco) complicating , second trimester; Translations: [Tobacco smoking complicating in second trimester (HCC)] Onset: 01-03-2025 Episodic Other complications of (1 source) Maternal [...] 08-02-2024 Episodic Residual codes; unclassified (1 source) 32 [...] of ; Translations: [28 weeks gestation of ([facility])] Onset: 01-03-2025 Episodic Residual codes; unclassified (1 source) 26 weeks gestation of ; Translations: [26 weeks gestation of (HCC)] Onset: 12-20-2024 Episodic Residual codes; unclassified (1 source) 16 [...] [History of blood transfusion] Onset: 08-02-2024 Episodic Screening and history of mental health and substance abuse codes (20 sources) H/O: depression; Translations: [Personal history of other mental and behavioral disorders] Onset: 01-06-2016 Resolved: 04-29-2016 09-01-2021 Episodic Sexually transmitted infections (not HIV or [...] Test Name Value Interpretation Reference Range Facility HIGH RISK HUMAN PAPILLOMA IMELDA (HPV), PCR FOR DETECTION AND GENOTYPINGon 05-02-2025 HPV 16 Ag Ql (Unsp spec) Not detected Normal Not detected [facility] Comment on above: Order Comment: Speci men Type: FLUID SPECIMENOrdering Facility: [facility] Address: [address] [place] [address] Performed By: #### H PVHRT ####[facility] [id number] [address] OF ADAL HPV 18 Ag Ql (Unsp spec) Not detected Normal Not detected [facility] Comment on above: Order Comment: Speci men Type: FLUID SPECIMENOrdering Facility: [facility] Address: [address] [place] [address] Performed By: #### H PVHRT ####[facility] [id number] [address] OF ADAL HPV 31+33+35+39+45+51+52+ 56+58+59+66+68 DNA YELENA+probe Ql (Cvx) Not detected Normal Not detected [facility] Comment on above: Order Comment: Speci men Type: FLUID SPECIMENOrdering Facility: [facility] Address: [address] [place] [address] Result Comment: High Risk HPV Other Type includes HPV types 31, 33, 35, 39, 45, 51, 52, 56, 58, 59, 66 and 68. Performed By: #### H PVHRT ####[facility] [id number] [address] STATES OF ADAL HISTORY PHYSICALon HISTORY PHYSICAL HNO ID: [id number] Author: WENDI ROBB MD Service: ? Author Type: Physician Type: H&P Filed: 05/02/2025 11:55 Note Text: Pre-Op History and Physical HPI: The patient is a 30 year old female presenting for pre-operative visit. She is scheduled for tubal sterilization, for sterilization on 05/11/25. Procedure discussed along with risks, benefits and complications. Other alternatives discussed for management. Consent form signed? Yes. 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 02/2020 1:4 titer, repeat 4 weeks. Patient reports FOB in halfway so cannot test him. Wendi Robb MD 03/31/16: titer is 4. Repeat titer in 4 wks. 01/09/16 - titer is 8, needs repeat titer 4 weeks, consider FOB testing - February 10, 2016 Follow titers q 4 weeks, needs growth scan q [address] Hearn US report from 02/05. 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 Wendi Robb MD PAST SURGICAL HISTORY Procedure Laterality Date COLPOSCOPY 2018 while incarcerated FINGER SURGERY HX d/t MRSA Current Outpatient Medications Medication Sig Dispense Refill ibuprofen (MOTRIN) 600 mg tablet 600 mg orally every 6 hours as needed As Needed for Pain Score 1-10 sertraline (ZOLOFT) 25 mg tablet Take 1 tablet by mouth once daily. 30 tablet 11 valACYclovir (VALTREX) 1 gram tablet Take 1 tablet by mouth once daily. TAKE ONE(1) TABLET DAILY FOR 3 DAYS . 30 tablet 1 albuterol HFA (PROVENTIL HFA, VENTOLIN HFA) 90 mcg/actuation inhaler Inhale 2 Puffs as instructed every 4 hours as needed for wheezing/shortness of breath. 1 Each 0 Vitamin w/ Iron (PNV NO. 72, W/ IRON,) 27 mg iron- 1 mg Take 1 tablet by mouth once daily. 30 tablet 11 No current facility-administered medications for this visit. ALLERGIES: Latex and Shellfish Derived PERSONAL HISTORY: SOCIAL HISTORY[1] FAMILY HISTORY: FAMILY HISTORY Problem Relation Age of Onset [...] Paternal Aunt Colon Cancer No Family History REVIEW OF SYMPTOMS: GENERAL: denies fevers or chills ENDOCRINOLOGY: has not been on steroids Cardiology : denies palpitations or chest pain Respiratory: denies SOB or cough Hematology: denies history of prolonged bleeding or easy bruising or VTE Allergy: Denies history of personal or family history of allergy to anesthesia PHYSICAL EXAMINATION: VITALS: Blood pressure 118/74, weight 86.6 kg (191 lb), last menstrual period 04/25/2025, not currently . GENERAL: The patient is well nourished, well hydrated in no acute distress. , The patient is oriented to time, place, and person. NECK: Supple. No lynphadenopathy, normal thyroid, no thyromegaly. LUNGS: Clear to auscultation bilaterally. no wheezes, rhonchi or rales HEART: Regular rate and rhythm, Normal heart sounds, and No murmurs or gallops IMPRESSION: sterilization request PLAN: The risks/benefits/alternati ves and personal involved for the planned laparoscopic bilateral salpingectomy- tubal sterilization were reviewed with the patient. Her questions were answered to her satisfaction and she desires to proceed. Consent was signed. I reviewed with her postop instructions and expectations. I have reviewed and updated past medical and surgical history, medications and allergies Wendi Robb M.D. [1] Social History Tobacc (more content not included)... Normal [facility] PAP TESTon 08-27-2025 ADEQUACY Normal [facility] Comment on above: Order Comment: Speci men Type: FLUID SPECIMEN [facility] Address: [address] [place] [address] Result Comment: Sati sfactory for interpretation. Transformation zone present Performed By: #### L [id number] #### [facility] CLIA [id number] [address] [place] [address] [place] CASE REPORT Normal [facility] Comment on above: Order Comment: Speci men Type: FLUID SPECIMEN [facility] Address: [address] [place] [address] Result Comment: Gyne cologic Cytology Report Case: [id number] Authorizing Provider: Wendi Robb MD Collected: 05/02/2025 11:49 AM Ordering Location: OB/Gynecology Received: 05/02/2025 04:28 PM First Screen: Marva Solares, CT, ASCP Specimen: Pap Test, ThinPrep, Cervix Performed By: #### L [id number] #### [facility] CLIA [id number] [address] [place] [address] [place] CLINICAL HISTORY, CYTOLOGY, CLINICAL ASSOC Post (Indicate Weeks) Normal [facility] Comment on above: Order Comment: Speci men Type: FLUID SPECIMEN [facility] Address: [address] [place] [address] Performed By: #### L [id number] #### [facility] CLIA [id number] [address] [place] [address] [place] FINAL PERFORMING LAB Normal [facility] Comment on above: Order Comment: Speci men Type: FLUID SPECIMEN [facility] Address: [address] [place] [address] Result Comment: Tech nical component, merchandise complaint adjuster screening performed at: [facility], [address] [place], [place] [id number] CLIA: [id number] Diagnostic interpretation performed at: [facility], [address] [place] [address] [place] [address] CLIA# [id number] Imaging Nurse: Kishor Serrano MD Performed By: #### L [id number] #### [facility] CLIA [id number] [address] [place] [id number] [place] INTERPRETATION, CYTOLOGY, CLINICAL ASSOC Normal [facility] Comment on above: Order Comment: Speci men Type: FLUID SPECIMEN [facility] Address: [address] [place], [place] [id number] Result Comment: Nega tive for intraepithelial lesion or malignancy. at 1528 EDT Performed By: #### L [id number] #### [facility] CLIA [id number] [address] [place] [address] [place] LMP 04/25/2025 Normal [facility] Comment on above: Order Comment: Speci men Type: FLUID SPECIMEN [facility] Address: [address] [place] [address] Performed By: #### L [id number] #### [facility] CLIA [id number] [address] [place] [address] [place] DISCLAIMER COMMENT The Pap Smear is a screening test for cervical cancer. False negative results occur with all screening tests, emphasizing the need for rescreening at recommended intervals, and clinical correlation. Normal [facility] Comment on above: Order Comment: Speci men Type: FLUID SPECIMEN Ordering Facility: [facility] Address: [address] [place], [place] [id number] Performed By: #### L [id number] #### [facility] CLIA [id number] [address] [place] [address] [place] [employer] COMMENT This specimen has be en analyzed by the FDA-approved CUVISM MAGAZ[employer] System, which uses digital imaging and an enhanced artificial intelligence image analysis algorithm to identify higginbotham of interest on the microscopic slide, to assist the foreign exchange services manager and pathologist in evaluating cells on ThinPrep Pap tests. Following analysis, higginbotham of interest on the microscopic slide selected by the algorithm are reviewed by a foreign exchange services manager. If a sample requires hierarchical review, the pathologist will review the same higginbotham of interest selected by the algorithm prior to final interpretation. Normal [facility] Comment on above: Order Comment: Speci men Type: FLUID SPECIMEN Ordering Facility: [facility] Address: [address] [place] [address] Performed By: #### L [id number] #### [facility] CLIA [id number] [address] [place] [address] [address] 04-05-2025 CNPN Telephone (OGFVWE) -------- CALIN GRAF ([id number]) 1995 F Date Time Provider Department 04/05/25 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 [place] [facility] During your visit today, we recorded the following information about you: Shoshana Guido RN 04/05/2025 8:35 AM Signed PRAF submitted 04/05/25 Shoshana Guido RN Allergies As of Date: 04/05/2025 Noted Allergy Reaction LATEX 01/06/2016 4 - Hives 7 - Swelling SHELLFISH DERIVED 01/06/2016 2 - Rash 7 - Swelling Date Reviewed: 03/13/2025 Reviewed by: Wendi Robb MD - Fully Assessed Reason for Visit: [facility] [4193] Prescriptions as of 04/05/2025 - sertraline (ZOLOFT) 25 mg tablet Take 1 tablet by mouth once daily. - valACYclovir (VALTREX) 1 gram tablet Take 1 tablet by mouth once daily. TAKE ONE(1) TABLET DAILY FOR 3 DAYS . - albuterol HFA (PROVENTIL HFA, VENTOLIN HFA) 90 mcg/actuation inhaler Inhale 2 Puffs as instructed every 4 hours as needed for wheezing/shortness of breath. - Vitamin w/ Iron (PNV NO. 72, W/ IRON,) 27 mg iron- 1 mg Take 1 tablet by mouth once daily. Problem List As Of Date 04/05/2025 Noted Resolved Late care affecting [O09.30] 01/06/2016 [...] Supervision of high risk due to socia*01/03/2025 Bacterial vaginosis [N76.0, B96.89] 03/15/2025 Yeast vaginitis [B37.31] 03/15/2025 Encounter Status:Closed by SHOSHANA GUIDO on 04/05/25 Normal [facility] Cannabinoid Confon CANNABINOID Positive Abnormal . [facility] Comment on above: Order Comment: THC Performed By: #### L 5580.7000 #### [facility] [place], [address] THC GC/MS CONF 102 ng/mL Normal Cutoff=10 [facility] Comment on above: Order Comment: THC Result Comment: Perf ormed at: [facility] - [facility] [address] [place], [place] [id number] Political Worker: Toni Lees PhD, Phone: [phone] Performed By: #### L 1140.7000 #### [facility] [address] [place], [address] CBC W/Diff, Automatedon - Absolute Lymph 3.05 X10 3/uL Normal 0.83-4.51 [facility] Comment on above: Performed By: #### L 100.0100 ####[facility] [address] [place], [address] Absolute Neut 7.3 X10 3/uL Normal 2.0-7.7 [facility] Comment on above: Performed By: #### L 100.0100 ####[facility] [address] [place], [address] Basophils/100 WBC (Bld) 0.3 % Normal 0-1 [facility] Comment on above: Performed By: #### L 100.0100 ####[facility] [address] [place], [address] Eosinophils/100 WBC (Bld) 0.9 % Normal 0-5 [facility] Comment on above: Performed By: #### L 100.0100 ####[facility] [address] [place], [address] Erythrocyte distribution width (RBC) [Ratio] 13.5 % Normal 11.6-14.6 [facility] Comment on above: Performed By: #### L 100.0100 ####[facility] [address] [place], [address] Hematocrit (Bld) [Volume fraction] 33.9 % Low 37-47 [facility] Comment on above: Performed By: #### L 100.0100 ####[facility] [address] [place], [address] Hemoglobin (Bld) [Mass/Vol] 11.3 g/dL Low 12.0-15.0 [facility] Comment on above: Performed By: #### L 100.0100 ####[facility] [address] [place], [address] IG% 0.300 Normal 0.0-0.9 [facility] Comment on above: Result Comment: IG% - Immature Granulocytes (promyelocytes, myelocytes and metamyelocytes) > 1% indicates that a LEFT SHIFT is Present. Performed By: #### L 100.0100 ####[facility] [address] [place], [address] Lymphocytes/100 WBC (Bld) 27.4 % Normal 19-41 [facility] Comment on above: Performed By: #### L 100.0100 ####[facility] [address] [place], [address] MCH (RBC) [Entitic mass] 30.0 pg Normal 27.0-32.0 [facility] Comment on above: Performed By: #### L 100.0100 ####[facility] [address] [place], [address] MCHC (RBC) [Mass/Vol] 33.3 g/dL Normal 32-36 [facility] Comment on above: Performed By: #### L 100.0100 ####[facility] [address] [place], [address] MCV (RBC) [Entitic vol] 89.9 fL Normal 81-99 [facility] Comment on above: Performed By: #### L 100.0100 ####[facility] [address] [place], [address] Monocytes/100 WBC (Bld) 6.2 % Normal 0-10 [facility] Comment on above: Performed By: #### L 100.0100 ####[facility] [address] [place], [address] Neutrophils/100 WBC (Bld) 64.9 % Normal 47-70 [facility] Comment on above: Performed By: #### L 100.0100 ####[facility] [address] [place], [address] Nucleated RBC (Bld) [#/Vol] 0 10*3/uL Normal 0-5 [facility] Comment on above: Performed By: #### L 100.0100 ####[facility] [address] [place], [address] Platelet mean volume (Bld) [Entitic vol] 10.5 fL Normal 6.2-12.0 [facility] Comment on above: Performed By: #### L 100.0100 ####[facility] [address] [place], [address] Platelets (Bld) [#/Vol] 207 10*3/uL Normal 150-450 [facility] Comment on above: Performed By: #### L 100.0100 ####[facility] [address] [place], [address] RBC (Bld) [#/Vol] 3.77 10*6/uL Low 4.2-5.4 [facility] Comment on above: Performed By: #### L 100.0100 ####[facility] [address] [place], [address] RDW SD 43.8 fl Normal 35.1-43.9 [facility] Comment on above: Performed By: #### L 100.0100 ####[facility] [address] [place], [address] WBC (Bld) [#/Vol] 11.2 10*3/uL High 4.4-11.0 [facility] Comment on above: Performed By: #### L 100.0100 ####[facility] [address] [place], [address] [id number] 03-17-2025 ANTIBODY ID E Normal [facility] Comment on above: Order Comment: Labor Performed By: #### B [id number], L100.0100, BTS #### [facility] [address] [place], [address] BRCon 03-17-2025 RC Normal [facility] Comment on above: Result Comment: [id number] OP RC XM COMPATIBLE [id number] OP RC XM COMPATIBLE Performed By: #### B RC #### [facility] [address] [place], [address] CBC W/Diff, Automatedon - Absolute Neut Normal 2.0-7.7 [facility] Comment on above: Order Comment: Comme nts: First day Result Comment: REQU EST TO CANCEL ENTERED Performed By: #### L 100.0100 ####[facility] [address] [place], [address] HCT Normal 37-47 [facility] Comment on above: Order Comment: Comme nts: First day Result Comment: REQU EST TO CANCEL ENTERED Performed By: #### L 100.0100 ####[facility] [address] [place], [address] HGB Normal 12.0-15.0 [facility] Comment on above: Order Comment: Comme nts: First day Result Comment: REQU EST TO CANCEL ENTERED Performed By: #### L 100.0100 ####[facility] [address] [place], [address] MCH Normal 27.0-32.0 [facility] Comment on above: Order Comment: Comme nts: First day Result Comment: REQU EST TO CANCEL ENTERED Performed By: #### L 100.0100 ####[facility] [address] [place], [address] MCHC Normal 32-36 [facility] Comment on above: Order Comment: Comme nts: First day Result Comment: REQU EST TO CANCEL ENTERED Performed By: #### L 100.0100 ####[facility] [address] [place], [address] MCV Normal 81-99 [facility] Comment on above: Order Comment: Comme nts: First day Result Comment: REQU EST TO CANCEL ENTERED Performed By: #### L 100.0100 ####[facility] [address] [place], [address] NEUT% Normal 47-70 [facility] Comment on above: Order Comment: Comme nts: First day Result Comment: REQU EST TO CANCEL ENTERED Performed By: #### L 100.0100 ####[facility] [address] [place], [address] PLT Normal 150-450 [facility] Comment on above: Order Comment: Comme nts: First day Result Comment: REQU EST TO CANCEL ENTERED Performed By: #### L 100.0100 ####[facility] [address] [place], [address] RBC Normal 4.2-5.4 [facility] Comment on above: Order Comment: Comme nts: First day Result Comment: REQU EST TO CANCEL ENTERED Performed By: #### L 100.0100 ####[facility] [address] [place], [address] RDW CV Normal 11.6-14.6 [facility] Comment on above: Order Comment: Comme nts: First day Result Comment: REQU EST TO CANCEL ENTERED Performed By: #### L 100.0100 ####[facility] [address] [place], [address] RDW SD Normal 35.1-43.9 [facility] Comment on above: Order Comment: Comme nts: First day Result Comment: REQU EST TO CANCEL ENTERED Performed By: #### L 100.0100 ####[facility] [address] [place], [address] WBC Normal 4.4-11.0 [facility] Comment on above: Order Comment: Comme nts: First day Result Comment: REQU EST TO CANCEL ENTERED Performed By: #### L 100.0100 ####[facility] [address] [place], [address] Absolute Neut Normal 2.0-7.7 [facility] Comment on above: Result Comment: REQU EST TO CANCEL ENTERED Performed By: #### B [id number], L100.0100, BTS #### [facility] [address] [place], [address] HCT Normal 37-47 [facility] Comment on above: Result Comment: REQU EST TO CANCEL ENTERED Performed By: #### B [id number], L100.0100, BTS #### [facility] [address] [place], [address] HGB Normal 12.0-15.0 [facility] Comment on above: Result Comment: REQU EST TO CANCEL ENTERED Performed By: #### B [id number], L100.0100, BTS #### [facility] [address] [place], [address] MCH Normal 27.0-32.0 [facility] Comment on above: Result Comment: REQU EST TO CANCEL ENTERED Performed By: #### B [id number], L100.0100, BTS #### [facility] [address] [place], [address] MCHC Normal 32-36 [facility] Comment on above: Result Comment: REQU EST TO CANCEL ENTERED Performed By: #### B [id number], L100.0100, BTS #### [facility] [address] [place], [address] MCV Normal 81-99 [facility] Comment on above: Result Comment: REQU EST TO CANCEL ENTERED Performed By: #### B [id number], L100.0100, BTS #### [facility] [address] [place], [address] NEUT% Normal 47-70 [facility] Comment on above: Result Comment: REQU EST TO CANCEL ENTERED Performed By: #### B [id number], L100.0100, BTS #### [facility] [address] [place], [address] PLT Normal 150-450 [facility] Comment on above: Result Comment: REQU EST TO CANCEL ENTERED Performed By: #### B [id number], L100.0100, BTS #### [facility] [address] [place], [address] RBC Normal 4.2-5.4 [facility] Comment on above: Result Comment: REQU EST TO CANCEL ENTERED Performed By: #### B [id number], L100.0100, BTS #### [facility] [address] [place], [address] RDW CV Normal 11.6-14.6 [facility] Comment on above: Result Comment: REQU EST TO CANCEL ENTERED Performed By: #### B [id number], L100.0100, BTS #### [facility] [address] [place], [address] RDW SD Normal 35.1-43.9 [facility] Comment on above: Result Comment: REQU EST TO CANCEL ENTERED Performed By: #### B [id number], L100.0100, BTS #### [facility] [address] [place], [address] WBC Normal 4.4-11.0 [facility] Comment on above: Result Comment: REQU EST TO CANCEL ENTERED Performed By: #### B [id number], L100.0100, BTS #### [facility] [address] [place], [address] Absolute Lymph 2.84 X10 3/uL Normal 0.83-4.51 [facility] Comment on above: Performed By: #### L 100.0100 #### [facility] [address] [place], [address] Absolute Neut 7.5 X10 3/uL Normal 2.0-7.7 [facility] Comment on above: Performed By: #### L 100.0100 #### [facility] [address] [place], [address] Basophils/100 WBC (Bld) 0.2 % Normal 0-1 [facility] Comment on above: Performed By: #### L 100.0100 #### [facility] [address] [place], [address] Eosinophils/100 WBC (Bld) 0.6 % Normal 0-5 [facility] Comment on above: Performed By: #### L 100.0100 #### [facility] [address] [place], [address] Erythrocyte distribution width (RBC) [Ratio] 13.4 % Normal 11.6-14.6 [facility] Comment on above: Performed By: #### L 100.0100 #### [facility] [address] [place], [address] Hematocrit (Bld) [Volume fraction] 37.0 % Normal 37-47 [facility] Comment on above: Performed By: #### L 100.0100 #### [facility] [address] [place], [address] Hemoglobin (Bld) [Mass/Vol] 12.3 g/dL Normal 12.0-15.0 [facility] Comment on above: Performed By: #### L 100.0100 #### [facility] [address] [place], [address] IG% 1.100 High 0.0-0.9 [facility] Comment on above: Result Comment: IG% - Immature Granulocytes (promyelocytes, myelocytes and metamyelocytes) > 1% indicates that a LEFT SHIFT is Present. Performed By: #### L 100.0100 #### [facility] [address] [place], [address] Lymphocytes/100 WBC (Bld) 25.0 % Normal 19-41 [facility] Comment on above: Performed By: #### L 100.0100 #### [facility] [address] [place], [address] MCH (RBC) [Entitic mass] 29.9 pg Normal 27.0-32.0 [facility] Comment on above: Performed By: #### L 100.0100 #### [facility] [address] [place], [address] MCHC (RBC) [Mass/Vol] 33.2 g/dL Normal 32-36 [facility] Comment on above: Performed By: #### L 100.0100 #### [facility] [address] [place], [address] MCV (RBC) [Entitic vol] 90.0 fL Normal 81-99 [facility] Comment on above: Performed By: #### L 100.0100 #### [facility] [address] [place], [address] Monocytes/100 WBC (Bld) 7.0 % Normal 0-10 [facility] Comment on above: Performed By: #### L 100.0100 #### [facility] [address] [place], [address] Neutrophils/100 WBC (Bld) 66.1 % Normal 47-70 [facility] Comment on above: Performed By: #### L 100.0100 #### [facility] [address] [place], [address] Nucleated RBC (Bld) [#/Vol] 0 10*3/uL Normal 0-5 [facility] Comment on above: Performed By: #### L 100.0100 #### [facility] [address] [place], [address] Platelet mean volume (Bld) [Entitic vol] 10.9 fL Normal 6.2-12.0 [facility] Comment on above: Performed By: #### L 100.0100 #### [facility] [address] [place], [address] Platelets (Bld) [#/Vol] 227 10*3/uL Normal 150-450 [facility] Comment on above: Performed By: #### L 100.0100 #### [facility] [address] [place], [address] RBC (Bld) [#/Vol] 4.11 10*6/uL Low 4.2-5.4 [facility] Comment on above: Performed By: #### L 100.0100 #### [facility] [address] [place], [address] RDW SD 43.6 fl Normal 35.1-43.9 [facility] Comment on above: Performed By: #### L 100.0100 #### [facility] [address] [place], [address] WBC (Bld) [#/Vol] 11.4 10*3/uL High 4.4-11.0 [facility] Comment on above: Performed By: #### L 100.0100 #### [facility] [address] [place], [address] Comprehensive Metabolic Prof [facility] 03-17-2025 Albumin [Mass/Vol] 3.4 g/dL Low 3.5-5.0 [facility] Comment on above: Performed By: #### L 300.4310, L300.4700, L505.5000, L300.3900, L500.4050 ####[facility] [address] [place], [address] Albumin/Globulin [Mass ratio] 0.9 {ratio} Normal 0.9-2.4 [facility] Comment on above: Performed By: #### L 300.4310, L300.4700, L505.5000, L300.3900, L500.4050 ####[facility] [address] [place], [address] ALK PHOS 206 U/L High 35-104 [facility] Comment on above: Performed By: #### L 300.4310, L300.4700, L505.5000, L300.3900, L500.4050 ####[facility] [address] [place], [address] ALT [Catalytic activity/Vol] 11 U/L Normal <=34 [facility] Comment on above: Performed By: #### L 300.4310, L300.4700, L505.5000, L300.3900, L500.4050 ####[facility] [address] [place], [address] AST [Catalytic activity/Vol] 31 U/L Normal <=31 [facility] Comment on above: Result Comment: Hemo lysis present, Results??could be affected. ?? Performed By: #### L 300.4310, L300.4700, L505.5000, L300.3900, L500.4050 ####[facility] [address] [place], [address] BUN/CRE 12.0 RATIO Normal 10-20 [facility] Comment on above: Performed By: #### L 300.4310, L300.4700, L505.5000, L300.3900, L500.4050 ####[facility] [address] [place], [address] Calcium [Mass/Vol] 9.0 mg/dL Normal 7.6-11.0 [facility] Comment on above: Performed By: #### L 300.4310, L300.4700, L505.5000, L300.3900, L500.4050 ####[facility] [address] [place], [address] Chloride [Moles/Vol] 104 mmol/L Normal 98-108 [facility] Comment on above: Performed By: #### L 300.4310, L300.4700, L505.5000, L300.3900, L500.4050 ####[facility] [address] [place], [address] CO2 [Moles/Vol] 18.6 mmol/L Low 21.0-32.0 [facility] Comment on above: Performed By: #### L 300.4310, L300.4700, L505.5000, L300.3900, L500.4050 ####[facility] [address] [place], [address] ECRCL 143.23 ml/min Normal 50-250 [facility] Comment on above: Performed By: #### L 300.4310, L300.4700, L505.5000, L300.3900, L500.4050 ####[facility] [address] [place], [address] GAP 13 Normal 5-15 [facility] Comment on above: Performed By: #### L 300.4310, L300.4700, L505.5000, L300.3900, L500.4050 ####[facility] [address] [place], [address] GFR/1.73 sq M.predicted among non-blacks MDRD (S/P/Bld) [Vol rate/Area] 123 mL/min/{1.73_m2} Normal >60 [facility] Comment on above: Result Comment: mL/m in/1.73m2 CKD-EPI Creatinine Equation (2020) Performed By: #### L 300.4310, L300.4700, L505.5000, L300.3900, L500.4050 ####[facility] [address] [place], [address] Globulin (S) [Mass/Vol] 3.7 g/dL Normal 2.2-4.2 [facility] Comment on above: Performed By: #### L 300.4310, L300.4700, L505.5000, L300.3900, L500.4050 ####[facility] [address] [place], [address] Potassium [Moles/Vol] 4.2 mmol/L Normal 3.3-5.1 [facility] Comment on above: Result Comment: Hemo lysis present, Results??could be affected. ?? Performed By: #### L 300.4310, L300.4700, L505.5000, L300.3900, L500.4050 ####[facility] [address] [place], [address] Sodium [Moles/Vol] 136 mmol/L Normal 133-145 [facility] Comment on above: Performed By: #### L 300.4310, L300.4700, L505.5000, L300.3900, L500.4050 ####[facility] [address] [place], [address] T BILI < 0.15 Normal 0.00-1.30 [facility] Comment on above: Performed By: #### L 300.4310, L300.4700, L505.5000, L300.3900, L500.4050 ####[facility] [address] [place], [address] T PROT 7.1 g/dL Normal 5.9-8.4 [facility] Comment on above: Performed By: #### L 300.4310, L300.4700, L505.5000, L300.3900, L500.4050 ####[facility] [address] [place], [address] Creatinine [Mass/Vol] 0.63 mg/dL Low 0.70-1.20 [facility] Comment on above: Performed By: #### L 300.4310, L300.4700, L505.5000, L300.3900, L500.4050 ####[facility] [address] [place], [address] Glucose [Mass/Vol] 104 mg/dL High 70-99 [facility] Comment on above: Performed By: #### L 300.4310, L300.4700, L505.5000, L300.3900, L500.4050 ####[facility] [address] [place], [address] Urea nitrogen [Mass/Vol] 8 mg/dL Normal 4-19 [facility] [facility] Comment on above: Performed By: #### L 300.4310, L300.4700, L505.5000, L300.3900, L500.4050 ####[facility] [address] [place], [address] Fibrinogenon 03-17-2025 FIBRINOGEN 479 mg/dl High 203-444 [facility] Comment on above: Performed By: #### L 300.4310, L300.4700, L505.5000, L300.3900, L500.4050 ####[facility] [address] [place], [address] H AND P Exam - OB/GYNon 03-06 H&P Exam - SPARE FIXER [facility] Medical Records Department [address] [place] [address] H P Exam - SPARE FIXER 03/17/25 0953 MR#: [id number] Acct: [id number] Name: CALIN GRAF Rep #: [id number] : 1995 29 From: Lorena Sharma CNM PCP: Care Physician,No Primary Status:ADM IN Location: CT286-0 HPI - General General Date of Admission: 03/17/25 HPI Narrative CALIN GRAF, is a 29 F who presents at 38w5d with CHANELL 03/26/25. . Presented with vaginal bleeding and increasing contractions. Observed overnight and had a smaller amount of bleeding and variable deceleration. Decision for admission and induction of labor. 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 Genital herpes affecting Chlamydia infection affecting Hepatitis Anxiety Encounter for screening laboratory testing for COVID-19 virus Lab test negative for COVID-19 virus Home Medications ???Medication ???Instructions ???Recorded ???Last Taken ???Type vitamins-iron fumarate 65 1 tab PO DAILY 5 Unknown History mg iron-folic acid 1 mg tablet (Mynatal-Z) valacyclovir 500 mg tablet 1,000 mg PO DAILY HSV 03/17/25 Unk nown History (Valtrex) Allergy/AdvReac Type Severity Reaction Status Date / Time latex Allergy Hives Verified 03/22/23 10:32 shellfish derived Allergy Anaphylaxis Verified 03/22/23 10:32 Family History (Updated 03/22/23 @ 10:47 by Nadine Vera) Other Lupus Myocardial infarction Social History (Updated 03/22/23 @ 10:47 by Nadine Vera) Smoking Status: Current every day smoker tobacco type: cigars and e-cigarettes alcohol intake: never substance use type: does not use what type of physical activity do you participate in: walking History Elective abortions Hx Para 3 Spontaneous abortions Hx # Term Pregnancies Ectopic pregnancies Hx # Pregnancies Multiple births # of living children NST FHR Rate Baby A Baseline: 125 Variability:: Moderate Accelerations:: 15 x 15 Decelerations:: Variable FHR Category:: Category II Uterine Activity:: every 1-6 minutes ROS Constitutional Constitutional: Reports systems reviewed and no addt'l complaints, except as documented; Denies headache(s) Eyes Eyes: Denies acute decrease in peripheral vision, blurry vision or change in vision ENT HEENT: Reports systems reviewed and no addt'l complaints, except as documented Cardiovascular Cardiovascular: Denies chest pain or dizziness Respiratory/Chest Respiratory/Chest: Denies cough, dyspnea, dyspnea on exertion, shortness of breath at rest or shortness of breath with exertion Gastrointestinal Gastrointestinal: Denies abdominal pain, diarrhea, nausea or vomiting Genitourinary Genitourinary: Denies abdominal discomfort Musculoskeletal Musculoskeletal: Denies limited range of motion Integumentary Integumentary: Reports systems reviewed and no addt'l complaints, except as documented Neurologic Neurologic: Reports systems reviewed and no addt'l complaints, except as documented Psychiatric Psychiatric: Reports systems reviewed and no addt'l complaints, except as documented Endocrine Endocrinology: Reports systems reviewed and no addt'l complaints, except as documented Hematologic/Lymphatic Hematologic/Lymphatic: Reports systems reviewed and no addt'l complaints, except as documented Allergic/Immunologic Allergic/Immunologic: Reports systems reviewed and no addt'l complaints, except as documented Vital Signs Vital Signs Vital Signs: 03/16/25 22:31 03/16/25 22:31 03/16/25 22:31 Temperature Temperature Source Pulse Rate 103 H Respiratory Rate 14 Blood Pressure 106/66 BP Systolic 106 BP Diastolic 66 Pulse Ox 03/16/25 22:31 03/16/25 22:31 03/16/25 22:31 Temperature 97.9 F Temperature Source Pulse Rate Respiratory Rate Blood Pressure 103/84 H BP Systolic 103 BP Diastolic 84 Pulse Ox 99 03/16/25 22:31 03/16/25 22:31 03/16/25 22:31 Temperature Temperature Source Pulse Rate 100 Respiratory Rate 14 Blood Pressure BP Systolic BP Diastolic Pulse Ox 96 03/16/25 22:31 03/17/25 00:15 03/17/25 00:15 Tempera (more content not included)... Normal [facility] MR/OB.VAGDELIon 03-17-2025 [facility] Medical Records Department [address] [place] [address] OB Vaginal Delivery 03/17/25 1437 MR#: [id number] Acct: [id number] Name: CALIN GRAF Rep #: [id number] : 1995 29 From: Lorena Sharma CNM PCP: Care Physician,No Primary Status:ADM IN [facility] Plan (1) Vaginal delivery: Maternal Data Information CHANELL Calculator Estimated Delivery Date Method Current WG Current Estimate 03/26/25 Manual 38w 5d Vaginal Delivery Maternal Presentation Maternal Presentation: Medically Indicated Induction Type of Induction: Pitocin and Amniotomy Medical Reason for Induction: Other (vaginal bleeding in ) Vaginal Delivery Information Procedure Performed: Spontaneous Vaginal Delivery Surgeon/Practitioner: Lorena Sharma Date of Procedure: 03/17/25 Pre-Procedure Diagnosis: Vaginal bleeding in , induction of labor Post-Procedure Diagnosis: Type of anesthesia: Epidural Estimated Blood Loss: 200ml Time of Delivery: 14:05 Findings Description of procedure: heart rate deceleration with rapid decent and complete cervical dilation. Epidural for pain management. of viable male over intact perineum APGARS 8,9 respectively. head delivered with body immediately forthcoming, CANx2, delivered through. Placed on maternal abdomen, strong cry. Mouth and nares suctioned for secretions. No cry, Cord doubly clamped and cut by FOB and passed to awaiting nursing staff, immediate strong cry. Pitocin started for active 3rd stage management. Placenta delivered intact via aj, 3 vessel cord intact. Perineum inspected and revealed intact. Fundus firm and hemostasis achieved. EBL 200ml. Vaginal sweep completed by me, sponge and instrument correct. Mom and baby stable, planning to bottle feed. Family bonding well. Kimberly notified of delivery. 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, [address] Type AND Screenon 03-17-2025 Ab SCREEN GEL Positive Normal [facility] Comment on above: Order Comment: Labor Performed By: #### B [id number], L100.0100, BTS #### [facility] [address] [place], [address] Urine Drug Screen (VISTA)on 03-17-2025 AMPHETAMINES Negative Normal <1000 ng/mL [facility] Comment on above: Performed By: #### L 300.4310, L300.4700, L505.5000, L300.3900, L500.4050 ####[facility] [address] [place], [address] BARBITIURATES Negative Normal < 200 ng/mL [facility] Comment on above: Performed By: #### L 300.4310, L300.4700, L505.5000, L300.3900, L500.4050 ####[facility] [address] [place], [address] BENZODIAZIPINE Negative Normal < 200 ng/mL [facility] Comment on above: Performed By: #### L 300.4310, L300.4700, L505.5000, L300.3900, L500.4050 ####[facility] [address] [place], [address] BUP Ur Drug Scr Negative Normal < 200 ng/mL [facility] Comment on above: Performed By: #### L 300.4310, L300.4700, L505.5000, L300.3900, L500.4050 ####[facility] [address] [place], [address] COCAINE Negative Normal < 300 ng/mL [facility] Comment on above: Performed By: #### L 300.4310, L300.4700, L505.5000, L300.3900, L500.4050 ####[facility] [address] [place], [address] Fentanyl Negative Normal [facility] Comment on above: Performed By: #### L 300.4310, L300.4700, L505.5000, L300.3900, L500.4050 ####[facility] [address] [place] [address] METHADONE Negative Normal < 300 ng/mL [facility] Comment on above: Performed By: #### L 300.4310, L300.4700, L505.5000, L300.3900, L500.4050 ####[facility] [address] [place], [place], [phone] OPIATES Negative Normal < 300 ng/mL [facility] Comment on above: Performed By: #### L 300.4310, L300.4700, L505.5000, L300.3900, L500.4050 ####[facility] [address] [place], [place], [phone] OXYCODONE Negative Normal < 100 ng/mL [facility] Comment on above: Performed By: #### L 300.4310, L300.4700, L505.5000, L300.3900, L500.4050 ####[facility] [address] [place] [address] PCP Negative Normal < 25 ng/mL [facility] Comment on above: Performed By: #### L 300.4310, L300.4700, L505.5000, L300.3900, L500.4050 ####[facility] [address] [place] [address] THC Positive Normal < 50 ng/mL [facility] Comment on above: Result Comment: If c onfirmation testing is needed, a separate order will be required to send out testing to the reference laboratory. Performed By: #### L 300.4310, L300.4700, L505.5000, L300.3900, L500.4050 ####[facility] [address] [place], [address] [facility] [place] [facility] CNPN Telephone (OBGYWM) -------- CALIN GRAF ([id number]) 1995 F Date Time Provider Department 03/16/25 LORENA SHARMA OBYULIYA During your visit today, we recorded the following information about you: Lachelle Bean RN 03/16/2025 10:30 AM Signed 38w4d Patient called with c/o spotting in [...] Patient asking if she should go to [facility]. No available appointments. Please advise. ZEINA Vallejo Jennifer, RN 03/16/2025 11:48 AM Signed Patient called for an update. Please advise. ZEINA Vallejo Jessica, APRN.CNM 03/16/2025 12:10 PM Signed Ok to monitor at this time. If bright red vaginal bleeding, LOF or contractions to go to [facility] or check back later today if needs added. Thanks, Lorena Sharma APRN.Ana Nieves RN 03/16/2025 12:14 PM Signed Patient notified. Ana Jones RN Allergies As of Date: 03/16/2025 Noted Allergy Reaction LATEX 01/06/2016 4 - Hives 7 - Swelling SHELLFISH DERIVED 01/06/2016 2 - Rash 7 - Swelling Date Reviewed: 03/13/2025 Reviewed by: Wendi Robb MD - Fully Assessed Reason for Visit: OB spotting [Other] Prescriptions as of 03/16/2025 - metroNIDAZOLE (FLAGYL) 500 mg tablet Take 1 tablet by mouth two times a day for 7 days. - miconazole (MONISTAT 7) 2 % vaginal cream Use 1 applicator vaginally daily at bedtime for 7 days. - fluconazole (DIFLUCAN) 150 mg tablet Take 1 tablet by mouth every 72 hours for 2 doses. - valACYclovir (VALTREX) 1 gram tablet Take 1 tablet by mouth once daily. TAKE ONE(1) TABLET DAILY FOR 3 DAYS . - albuterol HFA (PROVENTIL HFA, VENTOLIN HFA) 90 mcg/actuation inhaler Inhale 2 Puffs as instructed every 4 hours as needed for wheezing/shortness of breath. - Vitamin w/ Iron (PNV NO. 72, W/ IRON,) 27 mg iron- 1 mg Take 1 tablet by mouth once daily. Problem List As Of Date 03/16/2025 Noted Resolved Late care affecting [O09.30] 01/06/2016 [...] Supervision of high risk due to socia*01/03/2025 Bacterial vaginosis [N76.0, B96.89] 03/15/2025 Yeast vaginitis [B37.31] 03/15/2025 Encounter Status:Closed by ANA JONES on 7/11/25 Normal [facility] Partial Thromboplast Timeon 03-16-2025 aPTT Coag (Bld) [Time] 27.6 s Normal 24.1-36.2 [facility] Comment on above: Performed By: #### L 300.4310, L300.4700, L505.5000, L300.3900, L500.4050 ####[facility] [address] [place], [place], [phone] Prothrombin Time w/INRon INR Coag (PPP) [Relative time] 1.0 {INR} Normal [facility] Comment on above: Performed By: #### L 300.4310, L300.4700, L505.5000, L300.3900, L500.4050 ####[facility] [address] [place], [place], [id number] PT Coag (PPP) [Time] 13.6 s Normal 11.7-14.9 [facility] Comment on above: Performed By: #### L 300.4310, L300.4700, L505.5000, L300.3900, L500.4050 ####[facility] [address] [place], [place], [phone] CNPNon 03-15-2025 CNPN Telephone (OBGYWM) -------- CALIN GRAF ([id number]) 1995 F Date Time Provider Department 03/15/25 WENDI ROBB OBYULIYA During your visit today, we recorded the following information about you: Vicki Garcia LPN 03/15/2025 3:13 PM Signed Ob patient is 38w3d is scheduled for IOL on 03/19/2025. Called stating that she had + BV AND yeast cultures and that Monistat was sent to her pharmacy for yeast infection. Patient asking if she can have a pill for yeast since IOL is scheduled for Wednesday. Patient requesting a mychart message response. Wendi Robb MD 03/15/2025 3:29 PM Signed yes,appropriate. MD Masha Bejarano Lindsey, RN 03/15/2025 3:35 PM Signed MyChart message sent to patient per request. Lana Fields RN Allergies As of Date: 03/15/2025 Noted Allergy Reaction LATEX 01/06/2016 4 - Hives 7 - Swelling SHELLFISH DERIVED 01/06/2016 2 - Rash 7 - Swelling Date Reviewed: 03/13/2025 Reviewed by: Wendi Robb MD - Fully Assessed Order(s):fluconazole (DIFLUCAN) 150 mg tabletTake 1 tablet by mouth every 72 hours for 2 doses.Disp: 2 tabletRfl: 0 Prescriptions as of 03/15/2025 - metroNIDAZOLE (FLAGYL) 500 mg tablet Take 1 tablet by mouth two times a day for 7 days. - miconazole (MONISTAT 7) 2 % vaginal cream Use 1 applicator vaginally daily at bedtime for 7 days. - fluconazole (DIFLUCAN) 150 mg tablet Take 1 tablet by mouth every 72 hours for 2 doses. - valACYclovir (VALTREX) 1 gram tablet Take 1 tablet by mouth once daily. TAKE ONE(1) TABLET DAILY FOR 3 DAYS . - albuterol HFA (PROVENTIL HFA, VENTOLIN HFA) 90 mcg/actuation inhaler Inhale 2 Puffs as instructed every 4 hours as needed for wheezing/shortness of breath. - Vitamin w/ Iron (PNV NO. 72, W/ IRON,) 27 mg iron- 1 mg Take 1 tablet by mouth once daily. Problem List As Of Date 03/15/2025 Noted Resolved Late care affecting [O09.30] 01/06/2016 [...] Supervision of high risk due to socia*01/03/2025 Bacterial vaginosis [N76.0, B96.89] 03/15/2025 Yeast vaginitis [B37.31] 03/15/2025 Prescriptions ordered this encounter Disp Refills Start End FLUCONAZOLE 150 MG TABLET 2 ta* 0 03/15/2025 03/19/2025 Route: PO Sig: Take 1 tablet by mouth every 72 hours for 2 doses. Encounter Status:Closed by LANA FIELDS on 03/15/25 Normal [facility] BACTERIAL VAGINOSIS NAATon 0 03-13-2025 Lactobacillus crispatus+gasseri+jaycob senii + Gardnerella vaginalis + Atopobium vaginae rRNA YELENA+probe Ql (Vag fld) Detected Abnormal Not detected [facility] Comment on above: Order Comment: Speci men Type: SWABOrdering Facility: [facility] Address: [address] [place] [address] Performed By: #### C VTV, BVAMP ####[facility] LABIA [id number] [place] [address] [place] MYRA/TRICHOMONAS NAATon 0 03-13-2025 C. glabrata RNA YELENA+probe Ql (Vag fld) Not detected Normal Not detected [facility] Comment on above: Order Comment: Speci men Type: SWABOrdering Facility: [facility] Address: [address] [place] [address] Performed By: #### C VTV, BVAMP ####[facility] LABCLIA [id number] [place] [address] [place] Myra sp DNA YELENA+probe Ql (Vag fld) Detected Abnormal Not detected [facility] Comment on above: Order Comment: Speci men Type: SWABOrdering Facility: [facility] Address: [address] [place] [address] Result Comment: The Myra species group target includes C. albicans, C. tropicalis, C. parapsilosis, and C. dubliniensis. Performed By: #### C VTV, BVAMP ####[facility] LABCLIA [id number] [place] [address] [place] T. vaginalis DNA YELENA+probe Ql (Unsp spec) Not detected Normal Not detected [facility] Comment on above: Order Comment: Speci men Type: SWABOrdering Facility: [facility] Address: [address] [place] [address] Performed By: #### C VTV, BVAMP ####[facility] LABCLIA [id number] [place] [address] [place] URINE OB DIP B/Oon Glucose Ql (U) Negative Neg mg/dL [facility] Interpretation and review of laboratory results Normal [facility] Protein.monoclonal (U) [Mass/Vol] Negative Neg mg/dL [facility] C. trachomatis+N. gonorrhoea e DNA YELENA+probe Ql (Unsp spec)on 03-01-2025 C. trachomatis rRNA YELENA+probe Ql (Unsp spec) Not detected Normal Not detected [facility] Comment on above: Order Comment: Speci men Type: SWABOrdering Facility: [facility] Address: [address] [place] [address] Performed By: #### 3 6902-5, TRVAMP ####[facility] LABCLIA [id number] [place] [address] [place] N. gonorrhoeae rRNA YELENA+probe Ql (Unsp spec) Not detected Normal Not detected [facility] Comment on above: Order Comment: Speci men Type: SWABOrdering Facility: [facility] Address: [address] [place] [address] Performed By: #### 3 6902-5, TRVAMP ####[facility] LABCLIA [id number] [place] [address] [place] ROUTINE, GROUP B ST REPTOCOCCUS BY PCRon 03-01-2025 ROUTINE, GROUP B STREPTOCOCCUS BY PCR Not detected Normal [facility] Comment on above: Performed By: #### G BPCR ####[facility] LABCLIA [id number] [address] [place] TRICHOMONAS VAGINALIS NAATon 03-01-2025 T. vaginalis DNA YELENA+probe Ql (Unsp spec) Not detected Normal Not detected [facility] Comment on above: Order Comment: Speci men Type: SWABOrdering Facility: [facility] Address: [address] [place] [address] Performed By: #### 3 6902-5, TRVAMP ####[facility] LABCLIA [id number] [place] [address] [place] URINE OB DIP B/Oon 5 Glucose Ql (U) Negative Neg mg/dL [facility] Interpretation and review of laboratory results Normal [facility] Protein.monoclonal (U) [Mass/Vol] Negative Neg mg/dL [facility] Examination level ultrasound on 02-14-2025 [facility] Radiology Study observation (narrative) [facility] URINE OB DIP B/Oon 5 Glucose Ql (U) Negative Neg mg/dL [facility] Interpretation and review of laboratory results Normal [facility] Protein.monoclonal (U) [Mass/Vol] Negative Neg mg/dL [facility] Examination level ultrasound on 01-17-2025 [facility] Radiology Study observation (narrative) [facility] CNPNon 01-04-2025 CNPN Telephone (OGFVWE) -------- CALIN GRAF ([id number]) 1995 F Date Time Provider Department 01/04/25 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[facility] OGFVDENISSE During your visit today, we recorded the [...] Status:Closed by SHOSHANA GUIDO on 01/04/25 Normal [facility] CBC W Auto Differential pane l (Bld)on 01-03-2025 Basophils (Bld) [#/Vol] 10*3/uL Normal <0.11 [facility] Comment on above: Order Comment: Speci men Type: BLOOD SPECIMENOrdering Facility: [facility] Address: [address] [place] [address] Performed By: #### 5 7021-8 ####[facility] [id number] [place] [address] [place] Basophils/100 WBC (Bld) 0.2 % Normal [facility] Comment on above: Order Comment: Speci men Type: BLOOD SPECIMENOrdering Facility: [facility] Address: [address] [place] [address] Performed By: #### 5 7021-8 ####[facility] [id number] [place] [address] [place] Differential cell count method Nom (Bld) Auto Normal [facility] Comment on above: Order Comment: Speci men Type: BLOOD SPECIMENOrdering Facility: [facility] Address: [address] [place] [address] Performed By: #### 5 7021-8 ####[facility] [id number] [place] [address] [place] Eosinophils (Bld) [#/Vol] 0.04 10*3/uL Normal <0.46 [facility] Comment on above: Order Comment: Speci men Type: BLOOD SPECIMENOrdering Facility: [facility] Address: [address] [place] [address] Performed By: #### 5 7021-8 ####[facility] [id number] [place] [address] [place] Eosinophils/100 WBC (Bld) 0.5 % Normal [facility] Comment on above: Order Comment: Speci men Type: BLOOD SPECIMENOrdering Facility: [facility] Address: [address] [place] [address] Performed By: #### 5 7021-8 ####[facility] [id number] [place] [address] [place] Erythrocyte distribution width (RBC) [Ratio] 13.5 % Normal 11.5-15.0 [facility] Comment on above: Order Comment: Speci men Type: BLOOD SPECIMENOrdering Facility: [facility] Address: [address] [place] [address] Performed By: #### 5 7021-8 ####[facility] [id number] [place] [address] [place] Hematocrit (Bld) [Volume fraction] 34.9 % Low 36.0-46.0 [facility] Comment on above: Order Comment: Speci men Type: BLOOD SPECIMENOrdering Facility: [facility] Address: [address] [place] [address] Performed By: #### 5 7021-8 ####[facility] [id number] [place] [address] [place] Hemoglobin (Bld) [Mass/Vol] 11.7 g/dL Normal 11.5-15.5 [facility] Comment on above: Order Comment: Speci men Type: BLOOD SPECIMENOrdering Facility: [facility] Address: [address] [place] [address] Performed By: #### 5 7021-8 ####[facility] [id number] [place] [address] [place] Immature granulocytes (Bld) [#/Vol] 0.04 10*3/uL Normal <0.10 [facility] Comment on above: Order Comment: Speci men Type: BLOOD SPECIMENOrdering Facility: [facility] Address: [address] [place] [address] Performed By: #### 5 7021-8 ####[facility] [id number] [place] [address] [place] Immature granulocytes/100 WBC (Bld) 0.5 % Normal [facility] [facility] Comment on above: Order Comment: Speci men Type: BLOOD SPECIMENOrdering Facility: [facility] Address: [address] [place] [address] Performed By: #### 5 7021-8 ####[facility]ERNCL[facility] [id number] [place] [address] [place] Lymphocytes (Bld) [#/Vol] 2.13 10*3/uL Normal 1.00-4.00 [facility] Comment on above: Order Comment: Speci men Type: BLOOD SPECIMENOrdering Facility: [facility] Address: [address] [place] [address] Performed By: #### 5 7021-8 ####[facility]IVERNCA [id number] [place] [address] [place] Lymphocytes/100 WBC (Bld) 26.2 % Normal [facility] Comment on above: Order Comment: Speci men Type: BLOOD SPECIMENOrdering Facility: [facility] Address: [address] [place] [address] Performed By: #### 5 7021-8 ####[facility] [id number] [place] [address] [place] MCH (RBC) [Entitic mass] 30.4 pg Normal 26.0-34.0 [facility] Comment on above: Order Comment: Speci men Type: BLOOD SPECIMENOrdering Facility: [facility] Address: [address] [place] [address] Performed By: #### 5 7021-8 ####[facility] RIVERNCLI [id number] [place] [address] [place] MCHC (RBC) [Mass/Vol] 33.5 g/dL Normal 30.5-36.0 [facility] Comment on above: Order Comment: Speci men Type: BLOOD SPECIMENOrdering Facility: [facility] Address: [address] [place] [address] Performed By: #### 5 7021-8 ####[facility]CL[facility] [id number] [place] [address] [place] MCV (RBC) [Entitic vol] 90.6 fL Normal 80.0-100.0 [facility] Comment on above: Order Comment: Speci men Type: BLOOD SPECIMENOrdering Facility: [facility] Address: [address] [place] [address] Performed By: #### 5 7021-8 ####[facility] [id number] [place] [address] [place] Monocytes (Bld) [#/Vol] 0.43 10*3/uL Normal <0.87 [facility] Comment on above: Order Comment: Speci men Type: BLOOD SPECIMENOrdering Facility: [facility] Address: [address] [place] [address] Performed By: #### 5 7021-8 ####[facility]IVERCHINOA [id number] [place] [address] [place] Monocytes/100 WBC (Bld) 5.3 % Normal [facility] Comment on above: Order Comment: Speci men Type: BLOOD SPECIMENOrdering Facility: [facility] Address: [address] [place] [address] Performed By: #### 5 7021-8 ####[facility] [id number] [place] [address] [place] Neutrophils (Bld) [#/Vol] 5.46 10*3/uL Normal 1.45-7.50 [facility] Comment on above: Order Comment: Speci men Type: BLOOD SPECIMENOrdering Facility: [facility] Address: [address] [place] [address] Performed By: #### 5 7021-8 ####[facility] [id number] [place] [address] [place] Neutrophils/100 WBC (Bld) 67.3 % Normal [facility] Comment on above: Order Comment: Speci men Type: BLOOD SPECIMENOrdering Facility: [facility] Address: [address] [place] [address] Performed By: #### 5 7021-8 ####[facility]ERNCLIA [id number] [place] [address] [place] Nucleated RBC (Bld) [#/Vol] 10*3/uL Normal <0.01 [facility] Comment on above: Order Comment: Speci men Type: BLOOD SPECIMENOrdering Facility: [facility] Address: [address] [place] [address] Performed By: #### 5 7021-8 ####[facility] [id number] [place] [address] [place] Nucleated RBC/100 WBC (Bld) [Ratio] 0.0 /100 WBC Normal [facility] Comment on above: Order Comment: Speci men Type: BLOOD SPECIMENOrdering Facility: [facility] Address: [address] [place] [address] Performed By: #### 5 7021-8 ####[facility] [id number] [place] [address] [place] Platelet mean volume (Bld) [Entitic vol] 10.6 fL Normal 9.0-12.7 [facility] Comment on above: Order Comment: Speci men Type: BLOOD SPECIMENOrdering Facility: [facility] Address: [address] [place] [address] Performed By: #### 5 7021-8 ####[facility] [id number] [place] [address] [place] Platelets (Bld) [#/Vol] 233 10*3/uL Normal 150-400 [facility] Comment on above: Order Comment: Speci men Type: BLOOD SPECIMENOrdering Facility: [facility] Address: [address] [place], [place] [address] Performed By: #### 5 7021-8 ####[facility] [id number] [place] [address] [place] RBC (Bld) [#/Vol] 3.85 10*6/uL Low 3.90-5.20 [facility] Comment on above: Order Comment: Speci men Type: BLOOD SPECIMENOrdering Facility: [facility] Address: [address] [place] [address] Performed By: #### 5 7021-8 ####[facility] [id number] [place] [address] [place] WBC (Bld) [#/Vol] 8.12 10*3/uL Normal 3.70-11.00 [facility] Comment on above: Order Comment: Speci men Type: BLOOD SPECIMENOrdering Facility: [facility] Address: [address] [place] [address] Performed By: #### 5 7021-8 ####[facility] [id number] [place] [address] [place] GESTATIONAL GLUCOSE SCREEN, 1-HOUR, 50 GRAM, NON-FASTINGon 01-03-2025 Glucose [Mass/Vol] 98 mg/dL Normal 74-134 [facility] Comment on above: Order Comment: Speci men Type: BLOOD SPECIMENOrdering Facility: [facility] Address: [address] [place] [address] Result Comment: [facility] Congress of Obstetricians and Gynecologists (Abhijit/Kay) guidelines state a gestational diabetes mellitus positive screen is made, in women not previously diagnosed with overt diabetes, when the 1 hr plasma glucose level is equal to or above 140 mg/dL. The [facility] Breeding Manager and [facility] [place] recommends a 135 mg/dL cutoff. Performed By: #### G LTGST ####[facility]CL[facility] [id number] [place] [address] [place] Reagin and Treponema pallidu m IgG and IgM [Interp]on 01-03-2025 T. pallidum IgG+IgM IA Ql (S) Non-Reactive Normal Nonreactive [facility] Comment on above: Order Comment: Speci men Type: BLOOD SPECIMENOrdering Facility: [facility] Address: [address] [place] [address] Performed By: #### 7 3752-8 ####[facility] LABCLIA [id number] [place] [address] [place] Reagin+T pallidum IgG+IgM Se rPl-Impon 01-03-2025 Reagin and Treponema pallidum IgG and IgM [Interp] Cannot exclude recent Treponemal infection if specimen collected within 7-10 days after appearance of suspect lesions or 2-3 weeks after an exposure. Clinical correlation is required. Normal [facility] Comment on above: Order Comment: Temitope henry Type: BLOOD SPECIMENOrdering Facility: [facility] Address: [address] [place] [address] Performed By: #### 7 3752-8 ####[facility] LABCLIA [id number] [address] [place] CNPNon 01-01-2025 CNPN Telephone (SPMOBA) -------- CALIN GRAF ([id number]) 1995 F Date Time Provider Department 01/01/25 LETICIA SHULTZOBA During your visit today, we recorded the following information about you: Leticia Shultz RN 01/01/2025 3:13 PM Signed 28-32 Week Follow Up Call with OB Navigator Estimated Date of Delivery: 03/26/25 Gestational age: 28w0d Call patient at [phone] Patient/caregiver answered: No Left voice message ClauseMatcht message sent LULU Jordan, RN OB Clinical Navigator [phone] Allergies As of Date: 01/01/2025 Noted Allergy Reaction LATEX 01/06/2016 4 - Hives 7 - Swelling SHELLFISH DERIVED 01/06/2016 2 - Rash 7 - Swelling Date Reviewed: 12/20/2024 Reviewed by: Wendi Robb MD - Fully Assessed Reason for Visit: Follow Up Phone Call [9248] Cmt: 28-32 week follow up call with [...] and advice for contraceptive*12/20/2024 Encounter Status:Closed by LETICIA SHULTZ on 01/01/25 Normal [facility] Examination level ultrasound on 12-20-2024 [facility] Radiology Study observation (narrative) [facility] Vidya 12-07-2024 [facility] Telephone ([facility]) -------- CALIN GRAF ([id number]) 1995 F Date Time Provider Department 12/07/24 LACHELLE HICKMAN During your visit today, we recorded the following information about you: Lachelle Hickman MD 12/07/2024 11:59 AM Signed 12/07/2024 [facility] Pt called and identified. NIPT testing [...] - Swelling Date Reviewed: 12/06/2024 Reviewed by: Wendi Robb MD - Fully Assessed Prescriptions as [...] LACHELLE HICKMAN on 12/07/24 Normal [facility] SEND OUT TST 1Ordered B y: [place]aturnino [place] on 12-07-2024 Test 1 [place] NIPT [facility] Test Results 1 View results in Scan wilma Documents link when available [facility] Examination level ultrasound on 12-06-2024 [facility] Radiology Study observation (narrative) [facility] ANTIBODY ID PATIENTon 2024 ANTIBODY IDENTIFIED Detected Normal [facility] Comment on above: Order Comment: Speci men Type: BLOOD SPECIMEN [facility] Address: [address] [place] [address] Performed By: #### L [id number], BBABINT #### [facility] CLIA [id number] [address] [place] [address] [place] #### ASCR, %JETHRO #### [facility] CLIA [id number] [address] [place] [address] [place] ANTIBODY SCREENon 11-29-2024 TYPE AND SCREEN EXPIRATION 12/02/2024 23:59 Normal [facility] Comment on above: Order Comment: Speci men Type: BLOOD SPECIMEN [facility] Address: [address] [place] [address] Performed By: #### L [id number], BBABINT #### [facility] CLIA [id number] [address] [place] [address] [place] #### ASCR, %JETHRO #### [facility] CLIA [id number] [address] [place] [address] [place] BLOOD BANK PLACEHOLDER, ANTI BODY INTERPRETATIONon 11-29-2024 ABO ANTIBODY TITER Titers to 4 Normal [facility] Comment on above: Order Comment: Speci men Type: BLOOD SPECIMEN [facility] Address: [address] [place] [address] Result Comment: anti E Performed By: #### L [id number], BBABINT #### [facility] CLIA [id number] [address] [place] [address] [place] #### ASCR, %JETHRO #### [facility] CLIA [id number] [address] [place] [address] [place] BLOOD BANK PLACEHOLDER, TITE Addy 11-29-2024 BLOOD BANK REPORT, PATHOLOGY REPORT, TITER See Pathology Report Normal [facility] Comment on above: Order Comment: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 [Moles/Vol] 21 mmol/L Low 22-30 [facility] Comment on above: Order Comment: Speci men Type: BLOOD SPECIMENOrdering Facility: [facility] Address: [address] [place] [address] Performed By: #### 2 4323-8 ####[facility] MILLTOWNCLIA [id number] [place] [address] [place] Creatinine [Mass/Vol] 0.54 mg/dL Low 0.58-0.96 [facility] Comment on above: Order Comment: Temitope henry Type: BLOOD SPECIMENOrdering Facility: [facility] Address: [address] [place] [address] Performed By: #### 2 4323-8 ####[facility] [id number] [place] [address] [place] [facility] Creatinine and Glomerular filtration rate.predicted panel (S/P/Bld) 128 mL/min/1.73m??? Normal >=60 [facility] Comment on above: Order Comment: Temitope henry Type: BLOOD SPECIMENOrdering Facility: [facility] Address: [address] [place] [address] Result Comment: Nisha mated Glomerular Filtration Rate [...] actual GFR. Performed By: #### 2 4323-8 ####[facility] [id number] [place] [address] [place] Glucose [Mass/Vol] 89 mg/dL Normal 74-99 [facility] Comment on above: Order Comment: Temitope henry Type: BLOOD SPECIMENOrdering Facility: [facility] Address: [address] [place] [address] Result Comment: The [place] Diabetes Association (ADA) provides guidance for cutoff [...] Standards of Medical Care in Diabetes 2016, [place] Diabetes Association. Diabetes Care. 2016.39(Suppl 1). Performed By: #### 2 4323-8 ####[facility] [id number] [place] [address] [place] Potassium [Moles/Vol] 3.9 mmol/L Normal 3.7-5.1 [facility] Comment on above: Order Comment: Speci men Type: BLOOD SPECIMENOrdering Facility: [facility] Address: [address] [place] [address] Performed By: #### 2 4323-8 ####[facility] [id number] [place] [address] [place] Protein [Mass/Vol] 7.5 g/dL Normal 6.3-8.0 [facility] Comment on above: Order Comment: Speci men Type: BLOOD SPECIMENOrdering Facility: [facility] Address: [address] [place] [address] Performed By: #### 2 4323-8 ####[facility] [id number] [place] [address] [place] Sodium [Moles/Vol] 135 mmol/L Low 136-144 [facility] Comment on above: Order Comment: Speci men Type: BLOOD SPECIMENOrdering Facility: [facility] Address: [address] [place] [address] Performed By: #### 2 4323-8 ####[facility] [id number] [place] [address] [place] Urea nitrogen [Mass/Vol] 8 mg/dL Normal 7-21 [facility] Comment on above: Order Comment: Speci men Type: BLOOD SPECIMENOrdering Facility: [facility] Address: [address] [place] [address], [place] [address] Performed By: #### 2 4323-8 ####[facility] [id number] [place] [id number] [place] nuchal translucency me asured by Elijah 09-13-2024 Indication First trimester anatomic survey Impression REMOTE READ The patient is referred for a first trimester anatomy scan including nuchal translucency measurement as clinically indicated. - Single, live, intrauterine . - Oatman rump length measurement is consistent with the [...] view: visualized 4-chamber view with color: visualized 8-[id number]-[id number] view: normal Abdominal cord insertion: normal Stomach: [...] Lt ovary Vol 4.1 cm Performed By: Lana Perkins, CAROLYNN, RVT Read By: Stephain Cano M.D. MATERNAL MEDICINE [facility] Radiology Study observation (narrative) [facility] HBV surface Ag Ser Qlon HBV surface Ag Ql (S) Negative Normal Negative [facility] Comment on above: Order Comment: Speci men Type: BLOOD SPECIMENOrdering Facility: [facility] Address: [address] [place] [address] Performed By: #### 7 3752-8, 5195-3, 87291-7 ####[facility] LABIA [id number] [place] [address] [place] HCV Ab Ser Qlon 09-13-2024 HCV Ab Ql (S) Positive Abnormal Negative [facility] Comment on above: Order Comment: Speci men Type: BLOOD SPECIMENOrdering Facility: [facility] Address: [address] [place] [address] Performed By: #### 1 6128-1, 00339-8 ####[facility] LABIA [id number] [place] [id number] [place] HCV RNA YELENA+probe Qnon 09-13 HCV RNA YELENA+probe Ql Not detected Normal Not detected [facility] Comment on above: Order Comment: Speci men Type: BLOOD SPECIMENOrdering Facility: [facility] Address: [address] [place] [address] Performed By: #### 1 6128-1, 85137-1 ####[facility] LABCLIA [id number] [place] [address] [place] HIV 1+2 Ab IA Qlon 5 HIV 1 and 2 Ab IA.rapid Nom (S/P/Bld) Normal [facility] Comment on above: Order Comment: Speci men Type: BLOOD SPECIMENOrdering Facility: [facility] Address: [address] [place] [address] Result Comment: Test not indicated. Performed By: #### 7 3752-8, 5195-3, 21167-8 ####[facility] LABIA [id number] [place] [address] [place] HIV 1+2 Ab+HIV1 p24 Ag IA Ql Non-Reactive Normal Nonreactive [facility] Comment on above: Order Comment: Speci men Type: BLOOD SPECIMENOrdering Facility: [facility] Address: [address] [place] [address] Performed By: #### 7 3752-8, 5195-3, 65697-0 ####[facility] LABIA [id number] [place] [address] [place] HIV immunoassay testing algorithm interpretation (S/P/Bld) [Interp] Normal [facility] Comment on above: Order Comment: Speci men Type: BLOOD SPECIMENOrdering Facility: [facility] Address: [address] [place] [address] Result Comment: No e vidence of HIV-1 or HIV-2 infection. Should recent infection be suspected, repeat testing may be considered 2-3 weeks after this draw. Mcmullen Rev. Code 3701.243(E): This information has been [...] test results or diagnoses. Performed By: #### 7 3752-8, 5195-3, 23383-8 ####[facility] LABCLIA [id number] [place] [address] [place] HbA1c (Bld)on 09-13-2024 Average glucose Estimated from glycated hemoglobin (Bld) [Mass/Vol] 103 mg/dL Normal [facility] Comment on above: Order Comment: Speci men Type: BLOOD SPECIMENOrdering Facility: [facility] Address: [address] [place] [address] Result Comment: eAG: (Estimated average glucose) is a calculated value from HgbA1c and is unit support representative of the average blood glucose level in the last 2-3 month period. Performed By: #### 5 5454-3 ####[facility] LABCLIA [id number] [address] STATES [facility] HbA1c (Bld) [Mass fraction] 5.2 % Normal 4.3-5.6 [facility] Comment on above: Order Comment: Speci men Type: BLOOD SPECIMENOrdering Facility: [facility] Address: [address] [place] [address] Result Comment: [place] Diabetes Association guidelines indicate that patients with HgbA1c in the range 5.7-6.4% are at increased risk for development of diabetes, and intervention by lifestyle modification may be beneficial. HgbA1c greater or equal to 6.5% is considered diagnostic of diabetes. Performed By: #### 5 5454-3 ####[facility] LABCLIA [id number] [place] [address] [place] [id number] PLUSon 09-13-2024 Cell-free DNA./Cell-free DNA.total Dosage of chromosome-specific cfDNA (cfDNA) [Molar fraction] 13% Normal [facility] Comment on above: Order Comment: Speci men Type: BLOOD SPECIMENOrdering Facility: [facility] Address: [address] [place] [address] Performed By: #### M AT21 ####[facility] LABIA [id number] [place] [address] Chr 13+18+21+X+Y aneuploidy Dosage of chromosome-specific cfDNA Ql (cfDNA) Negative Normal [facility] Comment on above: Order Comment: Speci men Type: BLOOD SPECIMENOrdering Facility: [facility] Address: [address] [place] [address] Performed By: #### M AT21 ####[facility] LABCLIA [id number] [place] [address] Chr 21 trisomy Dosage of chromosome-specific cfDNA Ql (cfDNA) Negative Normal [facility] Comment on above: Order Comment: Speci men Type: BLOOD SPECIMENOrdering Facility: [facility] Address: [address] [place] [address] Performed By: #### M AT21 ####SEQUArtvalue.comM[facility] LABCLIA [id number] [place] [address] Chr X and Y aneuploidy risk Sequencing Ql (cfDNA) [Interp] Not detected Normal [facility] Comment on above: Order Comment: Speci men Type: BLOOD SPECIMENOrdering Facility: [facility] Address: [address] [place] [address] Result Comment: Not Detected Not Detected Performed By: #### M AT21 ####[facility] LABCLIA [id number] [place] [address] Citation Frantz (Reference lab test) Comment Normal [facility] Comment on above: Order Comment: Speci men Type: BLOOD SPECIMENOrdering Facility: [facility] Address: [address] [place] [address] Result Comment: 1. P henrry VEGAS, et al. Patricia Med. 2012;14(3):296-305. 2. Rahul LANDON, et al. Prenat Diag. 2013;33(6):591-597. 3. Ebenezer C, et al. Clin Chem. 2015 Apr;61(4):608-616. 4. Markus VEGAS et al. Patricia Med. 2011;13(11):913-920. 5. ACOG/SMFM Practice Bulletin No. 226, Jun 2020. Performed By: #### M AT21 ####SEQUEN[facility] LABCLIA [id number] [place] [address] Gestational age Estimated from conception date [place] Normal [facility] Comment on above: Order Comment: Speci men Type: BLOOD SPECIMENOrdering Facility: [facility] Address: [address] [place] [address] Performed By: #### M AT21 ####U.S. SilicaENOM[facility] LABCLIA [id number] [place] [id number] GESTATIONALAGE AGE > OR = 9W Yes Normal [facility] Comment on above: Order Comment: Speci men Type: BLOOD SPECIMENOrdering Facility: [facility] Address: [address] [place] [address] Performed By: #### M AT21 ####Learnpedia Edutech SolutionsM-[facility] LABCLIA [id number] [place] [address] Laboratory comment Frantz (Report) Comment Normal [facility] Comment on above: Order Comment: Speci men Type: BLOOD SPECIMENOrdering Facility: [facility] Address: [address] [place] [address] Result Comment: The MaterniT(R) 21 PLUS laboratory-developed test (LDT) analyzes circulating cell-free DNA from a maternal blood sample. This test is used for screening purposes and not diagnostic. Clinical correlation is recommended. Validation data on twin pregnancies is limited and the ability of this test to detect aneuploidy in higher multiple gestations has not yet been validated. Performed By: #### M AT21 ####[facility] LABCLIA [id number] [place] [id number] director of research center name Nom (Provider) Comment Normal [facility] Comment on above: Order Comment: Speci men Type: BLOOD SPECIMENOrdering Facility: [facility] Address: [address] [place] [address] Result Comment: This specimen showed an expected representation of chromosome 21, 18 and 13 material. Clinical correlation is suggested. Comment Salvador Julian MD, PhD, Director, [employer] Performed By: #### M AT21 ####[facility] LABCLIA [id number] [place] [address] LIMITATIONS OF THE TEST Comment Normal [facility] Comment on above: Order Comment: Speci men Type: BLOOD SPECIMENOrdering Facility: [facility] Address: [address] [place] [address] Result Comment: Rhonda wagner the results of [...] Xaparin(R), Clexane(R) and Fragmin(R)). Performed By: #### M AT21 ####[facility] LABCLIA [id number] [place] [address] Monosomy X risk Dosage of chromosome-specific cfDNA Ql (Plasma cell-free+WBC DNA) [Interp] Not detected Normal [facility] Comment on above: Order Comment: Speci men Type: BLOOD SPECIMENOrdering Facility: [facility] Address: [address] [place] [address] Performed By: #### M AT21 ####[facility] LABCLIA [id number] [place] [address] NEGATIVE PREDICTIVE VALUE Note Normal [facility] Comment on above: Order Comment: Speci men Type: BLOOD SPECIMENOrdering Facility: [facility] Address: [address] [place] [address] Result Comment: The Negative Predictive Value (NPV) for trisomy 21, 18, and 13 is greater than 99%. The NPV for SCA and ESS cannot be calculated as SCA and ESS are only reported when an abnormality is detected. Performed By: #### M AT21 ####[facility] LABCLIA [id number] [place] [id number] NOTE Comment Normal [facility] Comment on above: Order Comment: Speci [facility] Type: BLOOD SPECIMENOrdering Facility: [facility] Address: [address] [place] [address] Result Comment: See Notes [employer] is a subsidiary of [employer], using the brand [employer]. This test was developed and its performance characteristics determined by [employer]. It has not been cleared or approved by the Food and Drug Administration. This laboratory is certified under the Clinical Laboratory Improvement Amendments (CLIA) as qualified to perform high complexity clinical laboratory testing and accredited by the [employer] (CAP). If there is future clinical need for adding MaterniT GENOME testing, this specimen will be available until term. [facility] samples will not be retained beyond 60 days. [facility] patients will have to send a new sample for re-sequencing (LCA Test Code: 235855). Performed By: #### M AT21 ####[facility] LABIA [id number] [place] [address] PERFORMANCE CHARACTERISTICS Note Normal [facility] Comment on above: Order Comment: Speci men Type: BLOOD SPECIMENOrdering Facility: [facility] Address: [address] [place] [address] Result Comment: ! Sex ! Accuracy: 99.4% [...] ! ! ! * As reported in [facility] database nstd37 [https://www.ncbi.nlm.nih.gov/dbvar/studies/nstd37/ ] # Estimated Sensitivity. Sensitivity estimated across the observed size distribution of each syndrome [per [facility] database nstd37] and across the range of fractions observed in routine clinical NIPT. Actual sensitivity can also be influenced by other factors such as the size of the event, total sequence counts, amplification bias, or sequence bias. ## [place] gestation only. Performed By: #### M AT21 ####[facility] LABNirmidas BiotechIA [id number] [place] [address] POSITIVE PREDICTIVE VALUE N/A Normal [facility] Comment on above: Order Comment: Temitope henry Type: BLOOD SPECIMENOrdering Facility: [facility] Address: [address] [place] [address] Performed By: #### M AT21 ####Wanxue EducationCORP LABCLIA [id number] [place] [address] Reference Lab Test Method Comment Normal [facility] Comment on above: Order Comment: Temitope henry Type: BLOOD SPECIMENOrdering Facility: [facility] Address: [address] [place] [address] Result Comment: See Notes Circulating cell-free DNA [...] chromosomes 16 and 22. Performed By: #### M AT21 ####[facility] LABCLIA [id number] [place] [address] Sex Dosage of chromosome-specific cfDNA Nom (cfDNA) Comment Normal [facility] Comment on above: Order Comment: Speci men Type: BLOOD SPECIMENOrdering Facility: [facility] Address: [address] [place] [address] Result Comment: Cons istent with Male Performed By: #### M AT21 ####[facility] LABCLIA [id number] [place] [address] Test performance information Frantz (Unsp spec) Comment Normal [facility] Comment on above: Order Comment: Speci men Type: BLOOD SPECIMENOrdering Facility: [facility] Address: [address] [place] [address] Result Comment: The performance characteristics of the MaterniT(R) 21 PLUS laboratory-developed test (LDT) have been determined in a clinical validation study with women at increased risk for chromosomal aneuploidy.[1-4] Performed By: #### M AT21 ####Learnpedia Edutech SolutionsM-[facility] LABCLIA [id number] [place] [address] Trisomy 13 risk Dosage of chromosome-specific cfDNA Ql (cfDNA) [Interp] Negative Normal [facility] Comment on above: Order Comment: Speci men Type: BLOOD SPECIMENOrdering Facility: [facility] Address: [address] [place] [address] Performed By: #### M AT21 ####[facility] LABCLIA [id number] [place] [address] Trisomy 18 risk Dosage of chromosome-specific cfDNA Ql (Plasma cell-free+WBC DNA) [Interp] Negative Normal [facility] Comment on above: Order Comment: Speci men Type: BLOOD SPECIMENOrdering Facility: [facility] Address: [address] [place] [address] Performed By: #### M AT21 ####[employer] LABCLIA [id number] [place] [address] RUBELLA IGG ANTIBODYon 09-13 RUBELLA IGG AB, QUAL Positive Normal Positive [facility] Comment on above: Order Comment: Speci men Type: BLOOD SPECIMENOrdering Facility: [facility] Address: [address] [place] [address] Result Comment: The result suggests recent or past exposure to Rubella virus or history of Rubella vaccination. Positive result may also be seen due to presence of passively-transferred antibodies. Please correlate with patient's history. Performed By: #### R UBIGG ####[facility] LABCLIA [id number] [place] [address] [place] Reagin and Treponema pallidu m IgG and IgM [Interp]on 09-13-2024 T. pallidum IgG+IgM IA Ql (S) Non-Reactive Normal Nonreactive [facility] Comment on above: Order Comment: Speci men Type: BLOOD SPECIMENOrdering Facility: [facility] Address: [address] [place] [address] Performed By: #### 7 3752-8, 5195-3, 98526-9 ####[facility] LABCLIA [id number] [place] [address] [place] Reagin+T pallidum IgG+IgM Se rPl-Impon 09-13-2024 Reagin and Treponema pallidum IgG and IgM [Interp] Cannot exclude recent Treponemal infection if specimen collected within 7-10 days after appearance of suspect lesions or 2-3 weeks after an exposure. Clinical correlation is required. Normal [facility] Comment on above: Order Comment: Speci men Type: BLOOD SPECIMENOrdering Facility: [facility] Address: [address] [place] [address] Performed By: #### 7 3752-8, 5195-3, 15470-4 ####[facility] LABCLIA [id number] [place] [address] [place] TYPE + SCREEN PRENATALon ABO O Normal [facility] Comment on above: Order Comment: Speci men Type: FLUID SPECIMEN [facility] Address: [address] [place] [address] Performed By: #### L [id number] #### [facility] CLIA [id number] [address] [place] [address] [place] Rh Nom (Bld) Positive Normal [facility] Comment on above: Order Comment: Speci men Type: FLUID SPECIMEN [facility] Address: [address] [place] [address] Performed By: #### L [id number] #### [facility] CLIA [id number] [address] [place] [address] [place] TYPE AND SCREEN EXPIRATION 09/16/2024 23:59 Normal [facility] Comment on above: Order Comment: Speci men Type: FLUID SPECIMEN [facility] Address: [address] [place] [address] Performed By: #### L [id number] #### [facility] CLIA [id number] [address] [place] [address] [place] Order Comment: Speci men Type: BLOOD SPECIMENOrdering Facility: [facility] Address: [address] [place] [address] Performed By: #### T SPN, ABT, %JETHRO, BBABINT ####[facility] BLOOD BANKCLIA [id number] [place] [address] [place] Vidya 08-04-2024 CNPN Telephone ([facility]) -------- GRAFCALIN RODRIGUEZ ([id number]) 1995 F Date Time Provider Department 08/04/24 RYLEE SCOTT [facility] During your visit today, we recorded the following information about you: Praveen Ambriz RN 08/04/2024 9:37 AM Signed 1st risk assessment form submitted 08/04/24 Praveen Ambriz RN Allergies As of Date: 08/04/2024 Noted Allergy Reaction LATEX 01/06/2016 4 - Hives 7 - Swelling SHELLFISH DERIVED 01/06/2016 2 - Rash 7 - Swelling Date Reviewed: 08/02/2024 Reviewed by: Rylee Scott APRN.ELECTRICAL WIRER - Fully Assessed Reason for Visit: PRAF [4193] Prescriptions as of 08/04/2024 - aspirin, enteric coated (ECOTRIN LOW STRENGTH) 81 mg EC tablet Take 1 tablet by mouth once daily. - vit 45-ydzb-pqcds-dha (SELECT-OB+DHA) 29 mg iron-1 mg -250 mg [...] vomiting during [O21.9] 08/02/2024 Encounter Status:Closed by PRAVEEN AMBRIZ on 08/04/24 Normal [facility] Bacteria Ur Culton 4 Bacteria identified Cx Nom (U) ORGANISM ID: 1 <10,000 CFU/ml Normal urogenital emigdio Normal [facility] Comment on above: Performed By: #### 6 30-4 ####[facility] LABCLIA [id number] [place] [address] [place] C. trachomatis+N. gonorrhoea e DNA YELENA+probe Ql (Unsp spec)on 08-02-2024 C. trachomatis rRNA YELENA+probe Ql (Unsp spec) Not detected Normal Not detected [facility] Comment on above: Order Comment: Speci men Type: SWABOrdering Facility: [facility] Address: [address] [place] [address] Performed By: #### 3 6902-5, TRVAMP ####[facility] LABCLIA [id number] [address] [place] N. gonorrhoeae rRNA YELENA+probe Ql (Unsp spec) Not detected Normal Not detected [facility] Comment on above: Order Comment: Speci men Type: SWABOrdering Facility: [facility] Address: [address] [place] [address] Performed By: #### 3 6902-5, TRVAMP ####[facility] LABIA [id number] [address] STATES [place] [employer] ULTRASOUNDon 08-02-20 24 Indication Viability; confirm cardiac [...] Read By: Rylee Scott NP MATERNAL MEDICINE [facility] Radiology Study observation (narrative) [facility] TRICHOMONAS VAGINALIS NAATon 08-02-2024 T. vaginalis DNA YELENA+probe Ql (Unsp spec) Not detected Normal Not detected [facility] Comment on above: Order Comment: Speci men Type: SWABOrdering Facility: [facility] Address: [address] [place] [address] Performed By: #### 3 6902-5, TRVAMP ####[facility] LABCLIA [id number] [facility] [id number] OF [facility] Vidya 07-25-2024 CNPN Telephone (OBGYWM) -------- CALIN GRAF ([id number]) 1995 F Date Time Provider Department 07/25/24 [...] on 07/27 or you can transfer to Ana Wiley RN 07/25/2024 3:46 PM Signed Patient called back and scheduled for 9:30am phone call on 07/27 with Angélcia. Ana Jones RN Allergies As of Date: 07/25/2024 Noted Allergy Reaction LATEX 01/06/2016 4 - Hives 7 - Swelling SHELLFISH DERIVED 01/06/2016 2 - Rash 7 - Swelling Date Reviewed: 07/05/2024 Reviewed by: Gricelda Pepper, DIRECTOR OF [employer].ELECTRICAL WIRER - Fully Assessed Reason for Visit: Appointment [...] BMI 30-34.9 [E66.811] 02/16/2023 Encounter Status:Closed by ANA JONES on 07/25/24 [facility] CNOVon 07-05-2024 CNOV Office Visit (UCWSTR ) -------- CALIN GRAF ([id number]) 1995 F Date Time Provider Department 07/05/24 9:45 AM GRICELDA PEPPER [facility] During your visit today, we recorded the following information about you: Temperature Pulse Respiration Blood pressure 97.2 degrees 77/minute 18/minute 119/80 Weight 78.2 kg Gricelda Pepper APRN.CNP 07/05/2024 10:01 AM Signed This note was created using [employer]king[employer]. Subjective Calin Graf is a 29 year [...] Date Reviewed: 07/05/2024 Reviewed by: Gricelda Pepper APRN.ELECTRICAL WIRER - Fully Assessed Reason for Visit: Cough [28] Cmt: Chest congestion, runny nose, AGGARWAL x2 days Primary Visit Diagnosis:Acute cough [R05.1] Order(s):COVID AND INFLUENZA A/B AND RSV PCR, ROUTINE [SQCVFLRS] Order #: [id number]. #:[id number] benzonatate (TESSALON PERLES) 100 mg capsuleTake 1 [...] a day (more content not included)... Normal [facility] COVID AND INFLUENZA A/B AND RSV PCR, ROUTINEon 07-05-2024 SARS-CoV-2 (COVID-19) RNA YELENA+probe Ql (Unsp spec) SARS-COV-2 (AGENT OF COVID-19) RNA: Not detected INFLUENZA A RNA: Not detected INFLUENZA B RNA: Not detected RESPIRATORY SYNCYTIAL VIRUS (RSV) RNA: Not detected Normal [facility] Comment on above: Performed By: #### C VFLRS ####[facility] LABCLIA [id number] [place] [address] [place] STREP A MOLECULAR (POC)on Procedural Control Valid [facility] Strep A (POCT) Negative Negative [facility] VIBRATION CONTROLLED TRANSIE NT ELASTOGRAPHY (POC)on 11-27-2022 [facility] No Panel Informationon 10-27 [facility] Absolute lymphocyte counton 08-05-2022 Lymphocytes Auto (Unsp spec) [#/Vol] 2.33 10*3/uL 0.83-4.51 [facility] Work Phone: Basophil percentageon 2021 Basophils/100 WBC (Bld) 0.1 % 0-1 [facility] Work Phone: Eosinophils/100 WBC (Bld) 0.5 % 0-5 [facility] Work Phone: [phone] Neutrophils (Bld) [#/Vol] 5.5 10*3/uL 2.0-7.7 [facility] Work Phone: [phone] Neutrophils/100 WBC (Bld) 63.9 % 47-70 [facility] Work Phone: [phone] WBC (Bld) [#/Vol] 8.6 10*3/uL 4.4-11.0 [facility] Work Phone: [phone] Blood erythrocytes count (nu mber/volume)on 08-05-2022 RBC (Bld) [#/Vol] 4.06 10*6/uL 4.2-5.4 [facility] Work Phone: [phone] Blood hemoglobin measurement (mass/volume)on 08-05-2022 Hemoglobin (Bld) [Mass/Vol] 12.1 g/dL 12.0-15.0 [facility] Work Phone: [phone] Blood lymphocytes/100 leukoc yteson 08-05-2022 Lymphocytes/100 WBC (Bld) 27.2 % 19-41 [facility] Work Phone: [phone] Blood monocytes/100 leukocyt eson 08-05-2022 Monocytes/100 WBC (Bld) 7.8 % 0-10 [facility] Work Phone: [phone] Blood platelet mean volumeon 08-05-2022 Platelet mean volume (Bld) [Entitic vol] 10.6 fL 6.2-12.0 [facility] Work Phone: [phone] Determination of erythrocyte mean corpuscular volume (MCV)on 08-05-2022 MCV (RBC) [Entitic vol] 90.6 fL 81-99 [facility] Work Phone: [phone] Hematocrit Auto (Bld) [Volum e fraction]on 08-05-2022 Hematocrit (Bld) [Volume fraction] 36.8 % 37-47 [facility] Work Phone: [phone] Laboratory - Drug toxicology on 08-05-2022 Benzodiazepines Ql (U) Negative < 200 ng/mL [facility] Work Phone: [phone] Cannabinoids Screen Ql (U) Negative < 50 ng/mL [facility] Work Phone: [phone] Cocaine Ql (U) Negative < 300 ng/mL [facility] Work Phone: [phone] Opiates Ql (U) Negative < 300 ng/mL [facility] Work Phone: [phone] Laboratory - Hematology and Cell countson 08-05-2022 Erythrocyte distribution width (RBC) [Entitic vol] 42.8 fL 35.1-43.9 [facility] Work Phone: [phone] Erythrocyte distribution width (RBC) [Ratio] 12.8 % 11.6-14.6 [facility] Work Phone: [phone] Immature granulocytes/100 WBC (Bld) 0.500 % 0.0-0.9 [facility] Work Phone: [phone] Comment on above: IG% - Immature Granu locytes (promyelocytes, myelocytes and metamyelocytes) > 1% indicates that a LEFT SHIFT is Present. MCH (RBC) [Entitic mass] 29.8 pg 27.0-32.0 [facility] Work Phone: [phone] Nucleated RBC/100 WBC (Bld) [Ratio] 0 % 0-5 [facility] Work Phone: [phone] MCHC Auto (RBC) [Mass/Vol]on 08-05-2022 MCHC (RBC) [Mass/Vol] 32.9 g/dL 32-36 [facility] Work Phone: [phone] Panel Informationon 08-05 MDMA (Ecstasy) Screen Negative < 500 ng/mL [facility] Work Phone: [phone] Urine Barbiturates Screen Negative < 200 ng/mL [facility] Work Phone: [phone] Urine Drug Screen Comment [facility] Work Phone: [phone] Comment on above: CONFIRMATORY TESTING FOR ALL [...] Urine Methadone Screen Negative < 300 ng/mL [facility] Work Phone: Platelets bldon 08-05-2022 Platelets (Bld) [#/Vol] 251 10*3/uL 150-450 [facility] Work Phone: Urine amphetamine measuremen t (moles/volume)on 08-05-2022 Amphetamine (U) [Moles/Vol] Negative <1000 ng/mL [facility] Work Phone: Urine phencyclidine (PCP) de tectionon 08-05-2022 Phencyclidine Ql (U) Negative < 25 ng/mL [facility] Work Phone: BIOPHYSICAL PROFILE [facility] 07-29-2022 [facility] URINE OB DIP B/Oon 2 Glucose Ql (U) Negative Neg mg/dL [facility] Protein.monoclonal (U) [Mass/Vol] Negative Neg mg/dL [facility] BIOPHYSICAL PROFILE [facility] 07-21-2022 [facility] URINE OB DIP B/Oon 2 Glucose Ql (U) Negative Neg mg/dL [facility] Protein.monoclonal (U) [Mass/Vol] Negative Neg mg/dL [facility] BIOPHYSICAL PROFILE [facility] 07-14-2022 [facility] OBSTETRIC ULTRASOUND WHIon 1 09-06-2021 [facility] URINE OB DIP B/Oon 2 Glucose Ql (U) Negative Neg mg/dL [facility] Protein.monoclonal (U) [Mass/Vol] Negative Neg mg/dL [facility] Bilirubin Test strip Ql (U)o n 06-27-2022 Bilirubin Ql (U) Negative Negative [facility] Work Phone: Ketones Test strip Ql (U)on 06-27-2022 Ketones Ql (U) 150 mg/dl Negative [facility] Work Phone: Comment on above: CRITICAL VALUE VERIF IED. CALLED TO BARBARA TRUJILLO RN (WP)06/27/22 1701 Milo Lara.RESULTS READ BACK BY SAME . CRITICAL VALUE *H Nitrite Test strip Ql (U)on 06-27-2022 Nitrite Ql (U) Negative Negative [facility] Work Phone: Protein Test strip Ql (U)on 06-27-2022 Protein Ql (U) Negative Negative [facility] Work Phone: Urine blood detectionon 06-07 RBC Ql (U) Negative Negative [facility] Work Phone: Urine clarityon 06-27-2022 Clarity (U) Clear Clear [facility] Work Phone: Urine color determinationon 06-27-2022 Color (U) Yellow Yellow [facility] Work Phone: Urine glucose detectionon Glucose Ql (U) Normal mg/dl Normal [facility] Work Phone: Urine leukocyte esterase det ection by dipstickon 06-27-2022 Leukocyte esterase Test strip Ql (U) 25 /ul Negative [facility] Work Phone: Urine pHon 06-27-2022 pH (U) 5.0 [pH] 5.0 - 8.0 [facility] Work Phone: Urine specific gravity measu rementon 06-27-2022 Specific gravity (U) [Rel density] 1.025 1.002-1.030 [facility] Work Phone: Urobilinogen Auto test strip Ql (U)on 06-27-2022 Urobilinogen Ql (U) Normal mg/dl Normal [facility] Work Phone: OBSTETRIC ULTRASOUND WHIon 1 [facility] URINE OB DIP B/Oon Glucose Ql (U) Negative Neg mg/dL [facility] Protein.monoclonal (U) [Mass/Vol] Negative Neg mg/dL [facility] URINE OB DIP B/Oon 2 Glucose Ql (U) Negative Neg mg/dL [facility] Protein.monoclonal (U) [Mass/Vol] Negative Neg mg/dL [facility] URINE OB DIP B/Oon 2 Glucose Ql (U) Negative Neg mg/dL [facility] Protein.monoclonal (U) [Mass/Vol] Negative Neg mg/dL [facility] OBSTETRIC ULTRASOUND WHIon 0 03-31-2022 [facility] URINE OB DIP B/Oon 2 Glucose Ql (U) Negative Neg mg/dL [facility] Protein.monoclonal (U) [Mass/Vol] Negative Neg mg/dL [facility] No Panel Informationon 03-12 POC SARS CoV-2 Antigen Negative [facility] Work Phone: Basophil percentageon 2021 Basophil percentage 0 SEEN /hpf 0-5 [facility] Work Phone: Bilirubin Test strip Ql (U)o n 02-27-2022 Bilirubin Ql (U) Negative Negative [facility] Work Phone: Ketones Test strip Ql (U)on 02-27-2022 Ketones Ql (U) Negative Negative [facility] Work Phone: Mucus LM Ql (Urine sed)on Mucus Ql (Urine sed) 0 SEEN /hpf [facility] Work Phone: Nitrite Test strip Ql (U)on 02-27-2022 Nitrite Ql (U) Negative Negative [facility] Work Phone: Protein Test strip Ql (U)on 02-27-2022 Protein Ql (U) Negative Negative [facility] Work Phone: Squamous epithelial cells de tection in urine sediment by light microscopyon 02-27-2022 Epithelial cells.squamous LM Ql (Urine sed) 0 SEEN /hpf 5-10 [facility] Work Phone: Urine blood detectionon 02-05 RBC Ql (U) Negative Negative [facility] Work Phone: RBC Ql (U) 0 SEEN /hpf 0-5 [facility] Work Phone: Urine clarityon 02-27-2022 Clarity (U) Clear Clear [facility] Work Phone: Urine color determinationon 02-27-2022 Color (U) Yellow Yellow [facility] Work Phone: Urine glucose detectionon Glucose Ql (U) Normal mg/dl Normal [facility] Work Phone: Urine leukocyte esterase det ection by dipstickon 02-27-2022 Leukocyte esterase Test strip Ql (U) Negative Negative [facility] Work Phone: Urine pHon 02-27-2022 pH (U) 6.0 [pH] 5.0 - 8.0 [facility] Work Phone: Urine sediment bacteria coun t by microscopy (number/high power field)on 02-27-2022 Bacteria LM.HPF (Urine sed) [#/Area] 0 /[HPF] None Seen [facility] Work Phone: Urine specific gravity measu rementon 02-27-2022 Specific gravity (U) [Rel density] 1.020 1.002-1.030 [facility] Work Phone: Urobilinogen Auto test strip Ql (U)on 02-27-2022 Urobilinogen Ql (U) Normal mg/dl Normal [facility] Work Phone: Hepatic function 2000 panelo n 02-17-2022 Albumin [Mass/Vol] 4.3 g/dL 3.9 - 4.9 g/dL [facility] ALP [Catalytic activity/Vol] 71 U/L 34 - 123 U/L [facility] ALT [Catalytic activity/Vol] 76 U/L High 7 - 38 U/L [facility] AST [Catalytic activity/Vol] 57 U/L High 13 - 35 U/L [facility] Bilirubin [Mass/Vol] 0.3 mg/dL 0.2 - 1 .3 mg/dL [facility] Bilirubin.conjugated [Mass/Vol] mg/dL <0.2 mg/dL [facility] Protein [Mass/Vol] 7.5 g/dL 6.3 - 8.0 g/dL [facility] No Panel Informationon 02-17 [facility] URINE OB DIP B/Oon 2 Glucose Ql (U) Negative Neg mg/dL [facility] Protein.monoclonal (U) [Mass/Vol] Negative Neg mg/dL [facility] Absolute lymphocyte counton 12-23-2021 Lymphocytes Auto (Unsp spec) [#/Vol] 3.54 10*3/uL 0.83-4.51 [facility] Work Phone: [phone] Basophil percentageon 2021 Basophils/100 WBC (Bld) 0.3 % 0-1 [facility] Work Phone: Eosinophils/100 WBC (Bld) 1.0 % 0-5 [facility] Work Phone: Neutrophils (Bld) [#/Vol] 4.4 10*3/uL 2.0-7.7 [facility] Work Phone: Neutrophils/100 WBC (Bld) 51.7 % 47-70 [facility] Work Phone: WBC (Bld) [#/Vol] 8.6 10*3/uL 4.4-11.0 [facility] Work Phone: Basophil percentage 0-5 SEEN /hpf [facility] Work Phone: Bilirubin Test strip Ql (U)o n 12-23-2021 Bilirubin Ql (U) Negative Negative [facility] Work Phone: Blood erythrocytes count (nu mber/volume)on 12-23-2021 RBC (Bld) [#/Vol] 4.88 10*6/uL 4.2-5.4 [facility] Work Phone: Blood hemoglobin measurement (mass/volume)on 12-23-2021 Hemoglobin (Bld) [Mass/Vol] 14.2 g/dL 12.0-15.0 [facility] Work Phone: Blood lymphocytes/100 leukoc yteson 12-23-2021 Lymphocytes/100 WBC (Bld) 41.3 % 19- [facility] Work Phone: Blood monocytes/100 leukocyt eson 12-23-2021 Monocytes/100 WBC (Bld) 5.6 % 0-10 [facility] Work Phone: [phone] Blood platelet mean volumeon 12-23-2021 Platelet mean volume (Bld) [Entitic vol] 9.9 fL 6.2-12.0 [facility] Work Phone: [phone] Determination of erythrocyte mean corpuscular volume (MCV)on 12-23-2021 MCV (RBC) [Entitic vol] 90.2 fL 81-99 [facility] Work Phone: [phone] Hematocrit Auto (Bld) [Volum e fraction]on 12-23-2021 Hematocrit (Bld) [Volume fraction] 44.0 % 37-47 [facility] Work Phone: [phone] Ketones Test strip Ql (U)on 12-23-2021 Ketones Ql (U) Negative Negative [facility] Work Phone: [phone] Laboratory - Hematology and Cell countson 12-23-2021 Erythrocyte distribution width (RBC) [Entitic vol] 46.5 fL 35.1-43.9 [facility] Work Phone: [phone] Erythrocyte distribution width (RBC) [Ratio] 14.0 % 11.6-14.6 [facility] Work Phone: [phone] Immature granulocytes/100 WBC (Bld) 0.100 % 0.0-0.9 [facility] Work Phone: [phone] Comment on above: IG% - Immature Granu locytes (promyelocytes, myelocytes and metamyelocytes) > 1% indicates that a LEFT SHIFT is Present. MCH (RBC) [Entitic mass] 29.1 pg 27.0-32.0 [facility] Work Phone: Nucleated RBC/100 WBC (Bld) [Ratio] 0 % 0-5 [facility] Work Phone: [phone] MCHC Auto (RBC) [Mass/Vol]on 12-23-2021 MCHC (RBC) [Mass/Vol] 32.3 g/dL 32-36 [facility] Work Phone: Mucus LM Ql (Urine sed)on Mucus Ql (Urine sed) 0 SEEN /hpf [facility] Work Phone: Nitrite Test strip Ql (U)on 12-23-2021 Nitrite Ql (U) Negative Negative [facility] Work Phone: Platelets bldon 12-23-2021 Platelets (Bld) [#/Vol] 331 10*3/uL 150-450 [facility] Work Phone: Protein Test strip Ql (U)on 12-23-2021 Protein Ql (U) Negative Negative [facility] Work Phone: Serum or plasma choriogonado tropin detectionon 12-23-2021 HCG ( test) Ql 966 mIU/mL <4 [facility] Work Phone: Comment on above: hCG levels with Gest ational AgeGestational Age hCG mIU/mL (IU/L)0.2 - 1 week 5 - 501-2 weeks 50 - 5002-3 weeks 100 - 71577-4 weeks 500 - 896224-7 weeks 1000 - 542323-8 weeks 95070 - 100,0006-8 weeks 83832 - 200,0002-3 months 49357 - 100,000 Squamous epithelial cells de tection in urine sediment by light microscopyon 12-23-2021 Epithelial cells.squamous LM Ql (Urine sed) 0-5 SEEN /hpf [facility] Work Phone: Urine blood detectionon 12-05 RBC Ql (U) 50 /ul Negative [facility] Work Phone: RBC Ql (U) 0 SEEN /hpf [facility] Work Phone: Urine clarityon 12-23-2021 Clarity (U) Clear Clear [facility] Work Phone: Urine color determinationon 12-23-2021 Color (U) Yellow Yellow [facility] Work Phone: Urine glucose detectionon Glucose Ql (U) Normal mg/dl Normal [facility] Work Phone: Urine leukocyte esterase det ection by dipstickon 12-23-2021 Leukocyte esterase Test strip Ql (U) 25 /ul Negative [facility] Work Phone: Urine pHon 12-23-2021 pH (U) 6.0 [pH] [facility] Work Phone: Urine sediment bacteria coun t by microscopy (number/high power field)on 12-23-2021 Bacteria LM.HPF (Urine sed) [#/Area] 0 /[HPF] None Seen [facility] Work Phone: Urine specific gravity measu rementon 12-23-2021 Specific gravity (U) [Rel density] 1.015 [facility] Work Phone: Urobilinogen Auto test strip Ql (U)on 12-23-2021 Urobilinogen Ql (U) Normal mg/dl Normal [facility] Work Phone: CBLon 07-18-2017 CBL . [...] days.Performing Locations*1: This test was performed at: [facility], [address] [place] [address], [id number] , [facility] ([place]) Comment on above: Performed By: #### C BL ####[place] [address] Hemogramon 07-16-2017 Erythrocyte distribution width Auto Ratio (RBC) 13.4 % Normal 11.5-14.5 [facility] Comment on above: Performed By: #### Mandi STRICKLAND, CRP2, RAINA, CRTN3 ####[place] [address] Erythrocytes (RBC) 4.43 10*6/uL Normal 3.80-5.20 [facility] Comment on above: Performed By: #### Mandi STRICKLAND, CRP2, RAINA, CRTN3 ####[place] [address] Hematocrit (HCT) 40.1 % Normal 35.0-47.0 [facility] Comment on above: Performed By: #### Mandi STRICKLAND, LEONEL2, RAINA, CRTN3 ####[place] [address] Hemoglobin mass conc (Bld) 13.3 g/dL Normal 11.7-16.0 [facility] Comment on above: Performed By: #### Mandi STRICKLAND, CRP2, RAINA, CRTN3 ####[place] [address] MCH 30.0 pg Normal 26.0-34.0 [facility] Comment on above: Performed By: #### Mandi STRICKLAND, CRP2, RAINA, CRTN3 ####[place] [address] MCHC mass conc (RBC) 33.1 % Normal 32.0-36.0 [facility] Comment on above: Performed By: #### Mandi STRICKLAND, CRP2, RAINA, CRTN3 ####[place] [address] MCV 90.5 fL Normal 79.0-98.0 [facility] Comment on above: Performed By: #### Mandi STRICKLAND, CRP2, RAINA, CRTN3 ####[place] [address] Platelet mean volume (PMV) 8.6 fL Normal 7.4-10.4 [facility] Comment on above: Performed By: #### Mandi STRICKLAND, CRP2, RAINA, CRTN3 ####[address] [address] Platelets 323 10*3/uL Normal 140-440 [facility] Comment on above: Performed By: #### E SR, CRP2, QWAL, CRTN3 ####[address] [address] WBC (Leukocytes) 8.6 10*3/uL Normal 3.6-10.7 [facility] Comment on above: Performed By: #### E SR, CRP2, QWAL, CRTN3 ####[address] [address] Hemogramon 07-15-2017 Erythrocyte distribution width Auto Ratio (RBC) 14.1 % Normal 11.5-14.5 [facility] Comment on above: Performed By: #### E SR, CRP2, QWAL, CRTN3 ####[address] [address] Erythrocytes (RBC) 4.46 10*6/uL Normal 3.80-5.20 [facility] Comment on above: Performed By: #### E SR, CRP2, QWAL, CRTN3 ####[address] [address] Hematocrit (HCT) 41.3 % Normal 35.0-47.0 [facility] Comment on above: Performed By: #### E SR, CRP2, QWAL, CRTN3 ####[address] [address] Hemoglobin mass conc (Bld) 13.4 g/dL Normal 11.7-16.0 [facility] Comment on above: Performed By: #### E SR, CRP2, QWAL, CRTN3 ####[address] [address] MCH 30.0 pg Normal 26.0-34.0 [facility] Comment on above: Performed By: #### E SR, CRP2, QWAL, CRTN3 ####[address] [address] MCHC mass conc (RBC) 32.4 % Normal 32.0-36.0 [facility] Comment on above: Performed By: #### Mandi STRICKLAND, CRP2, RAINA, CRTN3 ####[address] [address] MCV 92.5 fL Normal 79.0-98.0 [facility] Comment on above: Performed By: #### Mandi STRICKLAND, CRP2, QDAISY, CRTN3 ####[address] [address] Platelet mean volume (PMV) 8.6 fL Normal 7.4-10.4 [facility] Comment on above: Performed By: #### Mandi STRICKLAND, CRP2, RAINA, CRTN3 ####[address] [address] Platelets 324 10*3/uL Normal 140-440 [facility] Comment on above: Performed By: #### Mandi STRICKLAND, CRP2, QDAISY, CRTN3 ####[place] [address] WBC (Leukocytes) 8.8 10*3/uL Normal 3.6-10.7 [facility] Comment on above: Performed By: #### Mandi STRICKLAND, CRP2, RAINA, CRTN3 ####[place] [id number] Vancomycin Troughon 07-15-20 17 Vancomycin Trough 14.2 ug/mL Low 15.0-20.0 [facility] Comment on above: Result Comment: . Performed By: #### Mandi STRICKLAND, CRP2, RAINA, CRTN3 ####[place] [address] Basic Metabolic Panelon 11-0 Anion gap 9 mmol/L Normal [facility] Comment on above: Performed By: #### P T ####[place] [address] Creatinine 0.52 mg/dL Low 0.55-1.40 [facility] Comment on above: Performed By: #### P T ####[place] [address] eGFR (black) mL/min/{1.73_m2} Normal >60 [facility] Comment on above: Performed By: #### P T ####[place] [address] [place] [address] eGFR (non-black) mL/min/{1.73_m2} Normal >60 [facility] Comment on above: Result Comment: Sour ce- MDRD equation with creatinine calibration to IDMS(NKDEP)eGFR not recommended for drug dose adjustment Performed By: #### P T ####[place] [address] [place] [address] Calcium 7.7 mg/dL Low 8.2-10.1 [facility] Comment on above: Performed By: #### P T ####[place] [address] [place] [address] Glucose mass conc 92 mg/dL Normal 70-100 [facility] Comment on above: Performed By: #### P T ####[place] [address] [place] [address] Urea nitrogen 5 mg/dL Low 7-25 [facility] Comment on above: Performed By: #### P T ####[place] [address] [place] [address] CO2 23 mmol/L Normal 21-32 [facility] Comment on above: Performed By: #### P T ####[place] [address] [place] [address] Chloride 105 mmol/L Normal 98-109 [facility] Comment on above: Performed By: #### P T ####[place] [address] [place] [address] Potassium molar conc 3.9 mmol/L Normal 3.5-5.1 [facility] Comment on above: Performed By: #### P T ####[place] [address] [place] [address] Sodium 137 mmol/L Normal 135-145 [facility] Comment on above: Performed By: #### P T ####[place] [address] [place] [address] Free T4on 07-14-2017 Thyroxine (T4) free 1.10 ng/dL Normal 0.76-1.46 [facility] Comment on above: Performed By: #### Mandi STRICKLAND, CRP2, RAINA, CRTN3 ####[place] [address] HIV 1,2 Ab; p24 Agon 017 HIV 1,2 Ab; p24 Ag NONREACTIVE Normal Nonreactive [facility] Comment on above: Result Comment: Resu lts obtained using the FDA cleared 4th generation HIVtest. This test detects antibodies to HIV1, HIV2, HIV Group O,and the presence of the HIV-1 p24 antigen. A Non-Reactive re-sult indicates the patient is negative for both HIV antibodyand HIV p24 antigen. All reactive results will undergo reflexconfirmation testing at an additional charge. Performed By: #### Mandi STRICKLAND, LEONEL2, RAINA, CRTN3 ####[place] [address] Hemoglobin A1Con 07-14-2017 Glucose mass conc 117 mg/dL Normal [facility] Comment on above: Performed By: #### Mandi STRICKLAND, LEONEL2, RAINA, CRTN3 ####[place] [address] Hemoglobin A1c/Hemoglobin.total mass fraction (Bld) 5.7 % High 4.0-5.6 [facility] Comment on above: Result Comment: --Hg bA1C levels may not be accurate in patients who haverenal disease, received recent blood transfusions, are anemic,or who have dyshemoglobinemia. Performed By: #### Mandi STRICKLAND, LEONEL2, RAINA, CRTN3 ####[place] [id number] Hemogramon 07-14-2017 Erythrocyte distribution width Auto Ratio (RBC) 14.1 % Normal 11.5-14.5 [facility] Comment on above: Performed By: #### P T ####[place] [id number] Erythrocytes (RBC) 3.97 10*6/uL Normal 3.80-5.20 [facility] Comment on above: Performed By: #### P T ####[place] [id number] Hematocrit (HCT) 36.4 % Normal 35.0-47.0 [facility] Comment on above: Performed By: #### P T ####[address] [address] Hemoglobin mass conc (Bld) 12.1 g/dL Normal 11.7-16.0 [facility] Comment on above: Performed By: #### P T ####[place] [address] MCH 30.6 pg Normal 26.0-34.0 [facility] Comment on above: Performed By: #### P T ####[address] [address] MCHC mass conc (RBC) 33.4 % Normal 32.0-36.0 [facility] Comment on above: Performed By: #### P T ####[place] [address] MCV 91.7 fL Normal 79.0-98.0 [facility] Comment on above: Performed By: #### P T ####[place] [address] Platelet mean volume (PMV) 9.4 fL Normal 7.4-10.4 [facility] Comment on above: Performed By: #### P T ####[address] [address] Platelets 253 10*3/uL Normal 140-440 [facility] Comment on above: Performed By: #### P T ####[place] [address] WBC (Leukocytes) 11.9 10*3/uL High 3.6-10.7 [facility] Comment on above: Performed By: #### P T ####[place] [address] Hep B Surface Abon 7 Hep B Surface Ab 56.6 m[IU]/mL Normal [facility] Comment on above: Result Comment: Inte rpretation:<8.00 Non-Reactive8.00-11.99 Equivocal>= 12.00 Ab Detected Performed By: #### E , CRP2, RAINA, CRTN3 ####[place] [address] [place] [address] Hep B Surface Agon 7 Hep B Surface Ag NOT DETECTED Normal Not-Detected [facility] Comment on above: Performed By: #### E , CRP2, QDAISY, CRTN3 ####[place] [address] [place] [address] Hep C Antibodyon 07-14-2017 Hep C Antibody DETECTED Abnormal Not-Detected [facility] Comment on above: Result Comment: Ivone ents with DETECTED Hepatitis C Ab results should have a new specimensubmitted for supplemental testing with a Hepatitis C Quantitative RNA assay(viral load), if clinically indicated. Performed By: #### Mandi STRICKLAND, CRP2, RAINA, CRTN3 ####[address] [place] [address] Hepatic Functionon 7 Alkaline phosphatase (ALP) 74 U/L Normal 45-117 [facility] Comment on above: Performed By: #### P T ####[place] [address] [place] [address] Protein 6.1 g/dL Low 6.4-8.2 [facility] Comment on above: Performed By: #### P T ####[place] [address] [place] [address] Alanine aminotransferase (ALT) 96 U/L High 12-78 [facility] Comment on above: Performed By: #### P T ####[place] [address] [place] [address] Bilirubin (total) 0.2 mg/dL Normal 0.2-1.0 [facility] Comment on above: Performed By: #### P T ####[place] [address] [place] [address] Aspartate aminotransferase (AST) 42 U/L High 15-37 [facility] Comment on above: Performed By: #### P T ####[place] [address] [place] [address] Albumin 2.4 g/dL Low 3.4-5.0 [facility] Comment on above: Performed By: #### P T ####[place] [address] [place] [address] Bilirubin (direct) mg/dL Normal 0.0-0.2 [facility] Comment on above: Performed By: #### P T ####[place] [address] [place] [address] Thyroid Stim. Hormoneon Thyroid Stim. Hormone 0.274 uU/mL Low 0.358-3.740 [facility] Comment on above: Performed By: #### P T ####[place] [address] [place] [address] .Auto Diffon 07-13-2017 Basophils Auto #/vol (Bld) 0.10 10 3/mcL Normal 0.00-0.19 [facility] ([place]) Comment on above: Performed By: #### C TAJ PARR ANEU, GFR, BMP ####[address] [place], [place] [address] Basophils/100 WBC Auto (Bld) 0.5 % Normal 0.0-2.5 [facility] ([place]) Comment on above: Performed By: #### C TAJ PARR ANEU, GFR, BMP ####[address] [place], [place] [address] Eosinophils 0.10 10 3/mcL Normal 0.00-0.40 [facility] ([place]) Comment on above: Performed By: #### C TAJ PARR ANEU, GFR, BMP ####[address] [place], [place] [address] Eosinophils/100 leukocytes 0.8 % Normal 0.0-7.0 [facility] ([place]) Comment on above: Performed By: #### C TAJ PARR ANEU, GFR, BMP ####[address] [place], [place] [address] Lymphocytes 2.60 10 3/mcL Normal 0.77-3.85 [facility] ([place]) Comment on above: Performed By: #### C TAJ PARR ANEU, GFR, BMP ####[address] [place], [place] [address] Lymphocytes/100 leukocytes 21.3 % Normal 10.0-50.0 [facility] ([place]) Comment on above: Performed By: #### C BC, ADIFF, ANEU, GFR, BMP ####[address] [place], [place] [address] Monocytes 1.20 10 3/mcL High 0.15-1.00 [facility] ([place]) Comment on above: Performed By: #### C BC, ADIFF, ANEU, GFR, BMP ####[address] [place], [place] [address] Monocytes/100 leukocytes 9.7 % Normal 1.7-13.0 [facility] ([place]) Comment on above: Performed By: #### C BC, ADIFF, ANEU, GFR, BMP ####[address] [place], [place] [address] Neutrophils/100 WBC Auto (Bld) 67.7 % Normal 37.0-80.0 [facility] ([place]) Comment on above: Performed By: #### C BC, ADIFF, ANEU, GFR, BMP ####[address] [place], [place] [address] .GFRon 07-13-2017 eGFR (non-black) mL/min/{1.73_m2} Normal [facility] ([place]) Comment on above: Result Comment: GFR Population [...] BC, ADIFF, ANEU, GFR, BMP ####[address] [place], [place] [address] eGFR (non-black) 144 ml/min/1.73sqm Normal [facility] ([place]) Comment on above: Result Comment: GFR Population [...] mL/min/1.73 square meters Performed By: #### C TAJ PARR ANEU, GFR, BMP ####[address] [place], [place] [address] .NEUABSon 07-13-2017 Neutrophils 8.40 10 3/mcL High 2.85-6.16 [facility] ([place]) Comment on above: Performed By: #### C TAJ PARR ANEU, GFR, BMP ####[address] [place], [place] [address] Antibody Identificationon Antibody Identification PATIENT: LESIA ALEGRIA LOC: 1EDI,[id number],28BILL# : [id number] : 1995 SEX: F AGE: [id number] BY: CANDACE CHI ORDERED : 07/13/2017 04:30 COLLECTED: 07/13/2017 02:28ORDER : [id number] RECEIVED : 07/13/2017 03:47 TEST NAME RESULT UNITS RANGES ABN FL STAntibody Identification POS, ANTI E F ------ Normal [facility] Comment on above: Performed By: #### T SGL, ABID, E-A, LC-A ####[address] [address] BMPon 07-13-2017 Chloride 99 mmol/L Normal 98-107 [facility] ([place]) Comment on above: Performed By: #### C TAJ PARR ANEU, GFR, BMP ####[address] [place], [place] [address] Electrolyte Balance 7.0 mEq/L Normal [facility] ([place]) Comment on above: Performed By: #### C TAJ PARR ANEU, GFR, BMP ####[address] [place], [place] [address] Glucose mass conc 108 mg/dL High 70-105 [facility] ([place]) Comment on above: Performed By: #### C TAJ PARR ANEU, GFR, BMP ####[address] [place], [place] [address] Potassium molar conc 3.5 mmol/L Normal 3.5-5.1 [facility]) Comment on above: Performed By: #### C TAJ PARR ANEU, GFR, BMP ####[address] [place], [place] [address] Sodium 134 mmol/L Low 136-146 [facility] ([place]) Comment on above: Performed By: #### C TAJ PARR ANEU, GFR, BMP ####[address] [place], [place] [address] BUN/Creatinine Ratio 9 ratio Normal 7-27 [facility] Comment on above: Performed By: #### C TAJ PARR ANEU, GFR, BMP ####[address] [place], [place] [address] Calcium 9.3 mg/dL Normal 8.4-10.2 [facility] ([place]) Comment on above: Performed By: #### C BC, ADIFF, ANEU, GFR, BMP ####[address] [place], [place] [address] CO2 28 mmol/L Normal 22-29 [facility] ([place]) Comment on above: Performed By: #### C BC, ADIFF, ANEU, GFR, BMP ####[address] [place], [place] [address] Creatinine 0.6 mg/dL Normal 0.6-1.2 [facility] ([place]) Comment on above: Performed By: #### C BC, ADIFF, ANEU, GFR, BMP ####[address] [place], [place] [address] Urea nitrogen 5.4 mg/dL Low 7.0-18.0 [facility] ([place]) Comment on above: Performed By: #### C BC, ADIFF, ANEU, GFR, BMP ####[address] [place], [place] [address] C-Reactive Proteinon 017 C reactive protein (CRP) 40.0 mg/L High 0.0-2.9 [facility] Comment on above: Result Comment: . Performed By: #### E SR, CRP2, QWAL, CRTN3 ####[address] [address] CBCon 07-13-2017 Erythrocyte distribution width Auto Ratio (RBC) 13.4 % Normal 11.5-14.5 [facility] ([place]) Comment on above: Performed By: #### C BC, ADIFF, ANEU, GFR, BMP ####[address] [place], [place] [address] Erythrocytes (RBC) 4.41 10 6/mcL Normal 4.20-5.40 [facility] ([place]) Comment on above: Performed By: #### C BC, ADIFF, ANEU, GFR, BMP ####[address] [place], [place] [address] Hematocrit (HCT) 39.2 % Normal 37.0-47.0 [facility] ([place]) Comment on above: Performed By: #### C BC, ADIFF, ANEU, GFR, BMP ####[address] [place], [place] [address] Hemoglobin mass conc (Bld) 13.1 G/dL Normal 12.0-16.0 [facility] ([place] Comment on above: Performed By: #### C BC, ADIFF, ANEU, GFR, BMP ####[address] [place], [place] [address] MCH 29.6 pg Normal 27.0-31.2 [facility] [place] Comment on above: Performed By: #### C BC, ADIFF, ANEU, GFR, BMP ####[address] [place], [place] [address] MCHC mass conc (RBC) 33.3 G/dL Normal 33.0-37.0 [facility] Comment on above: Performed By: #### C BC, ADIFF, ANEU, GFR, BMP ####[address] [place], [place] [address] MCV 88.9 fL Normal 80.0-94.0 [facility] [place] Comment on above: Performed By: #### C BC, ADIFF, ANEU, GFR, BMP ####[address] [place], [place] [address] Platelet mean volume (PMV) 8.5 fL Normal 7.4-10.4 [facility] [place] Comment on above: Performed By: #### C BC, ADIFF, ANEU, GFR, BMP ####[address] [place], [place] [address] Platelets 235 10 3/mcL Normal 130-400 [facility] ([place] Comment on above: Performed By: #### C BC, ADIFF, ANEU, GFR, BMP ####[address] [place], [place] [address] WBC (Leukocytes) 12.40 10 3/mcL High 4.60-10.80 [facility] Comment on above: Performed By: #### C BC, ADIFF, ANEU, GFR, BMP ####[address] [place], [place] [address] CR Hand Complete 3+ Views Danielle medrano 07-13-2017 CR Hand Complete 3+ Views Right Patient Name: CALIN GRAF Diagnostic Radiology Exam Date/Time 07/13/2017 02:45:57 EST Exam CR Hand Complete 3+ Views Right Ordering Physician ALON MARIAC Accession Number [id number] CPT4 Codes 49640 () Reason For Exam middle finger flexor tenosynovitis Report Indication: Hand swelling. IMPRESSION: Right hand three views performed. Bone density normal. No fracture or dislocation. No foreign body. There is swelling of the fingers especially third digit. Consider inflammatory conditions of soft tissue. Report Dictated on Workstation: Kera Final Dictated: 07/13/2017 3:12 am Dictating Physician: MD SHAW JOHN Signed Date and Time: 07/13/2017 3:12 am Signed by: MD SHAW JOHN Transcribed Date and Time: 07/13/2017 3:12 Normal [facility] CULT./ST. BACTERIAon 017 CULT./ST. BACTERIA OR collectedOR [facility] Patient name: CALIN GRAF M.R.N.: [id number] : 1995 Age: 22 Sex: F Ord. Physician: TASHIA DIXON Location: [address] [place] [address] Copy to: TASHIA DIXON Adm. Date: 07/13/17 MICROBIOLOGYORDER#: [id number] COLLECTED: 07/13/17 06:36SOURCE: Wound right middle finger RECEIVED: 07/13/17 11:15 OE C O M M E N T S OR collectedSTAIN GRAM FINAL 07/13/17 20:02109/12/16Many polymorphonuclear cells/lpf.Rare gram positive cocci in clusters.CULT./ST. [...] S-DD=SUSCEPTIBLE DOSE DEPENDENT RADHA VALUES = ug/mL Normal [facility] Comment on above: Performed By: #### P T ####[place] [address] CULTURE ANAEROBEon 7 CULTURE ANAEROBE OR collectedOR colle [facility] Patient name: CALIN GRAFR.N.: [id number] : 1995 Age: 22 Sex: F Ord. Physician: TASHIA DIXON Location: [address] [place] [address] Copy to: TASHIA DIXON DISCHARGED: 07/16/17 Adm. Date: 07/13/17 MICROBIOLOGYORDER#: [id number] COLLECTED: 07/13/17 06:36SOURCE: Wound right middle finger RECEIVED: 07/13/17 11:15 OE Farhana Harris E N T S OR collectedCULTURE ANAEROBE FINAL 07/18/17 15:No growth of anaerobes at 5 days. Normal [facility] Comment on above: Performed By: #### P T ####[place] [address] Creatinineon 07-13-2017 Creatinine 0.68 mg/dL Normal 0.55-1.40 [facility] Comment on above: Performed By: #### E SR, CRP2, QWAL, CRTN3 ####[place] [address] eGFR (black) mL/min/{1.73_m2} Normal >60 [facility] Comment on above: Performed By: #### E SR, CRP2, QWAL, CRTN3 ####[place] [address] eGFR (non-black) mL/min/{1.73_m2} Normal >60 [facility] Comment on above: Result Comment: Sour ce- MDRD equation with creatinine calibration to IDMS(NKDEP)eGFR not recommended for drug dose adjustment Performed By: #### E SR, CRP2, QWAL, CRTN3 ####[address] [place] [address] Drugs of Abuseon 07-13-2017 Amphetamines, Ur Positive Normal [facility] Comment on above: Performed By: #### P T ####[address] [place] [address] Cocaine, Ur Negative Normal [facility] Comment on above: Performed By: #### P T ####[address] [address] Methadone, Ur Negative Normal [facility] Comment on above: Performed By: #### P T ####[address] [address] Opiates, Ur Positive Normal [facility] Comment on above: Performed By: #### P T ####[address] [address] Oxycodone/Oxymorphine ,Ur Negative Normal [facility] Comment on above: Performed By: #### P T ####[address] [address] Barbiturates, Ur Negative Normal [facility] Comment on above: Performed By: #### P T ####[address] [address] Benzodiazepines, Ur Negative Normal [facility] Comment on above: Performed By: #### P T ####[address] [address] Phencyclidine (PCP), Ur Negative Normal [facility] Comment on above: Result Comment: The expected [...] non-forensic procedures. Performed By: #### P T ####[place] [address] E Antigenon 07-13-2017 E Antigen PATIENT: LESIA OTERO LOC: HAN BELCHER,28BIL# : [id number] : 1995 SEX: F AGE: 22ORDERED BY: CANADCE CHI ORDERED : 07/13/2017 05:34 COLLECTED: 07/13/2017 02:28ORDER : [id number] RECEIVED : 07/13/2017 03:47 TEST NAME RESULT UNITS RANGES ABN FL CHINYERE Antigen NEG F ------ Normal [facility] Comment on above: Performed By: #### P T ####[place] [address] Performed By: #### T SGL, ABID, E-A, LC-[place] ####[place] [address] Little c Antigenon 7 Little c Antigen PATIENT: LESIA OTERO LOC: HAN BELCHER,28BIL# : [id number] : 1995 SEX: F AGE: 22ORDERED BY: CANDACE CHI ORDERED : 07/13/2017 05:34 COLLECTED: 07/13/2017 02:28ORDER : [id number] RECEIVED : 07/13/2017 03:47 TEST NAME RESULT UNITS RANGES ABN FL STLittle c Antigen NEG F ------ Normal [facility] Comment on above: Performed By: #### T ROE, Murray ANGUIANO, LC-[place] ####[place] [address] Performed By: #### P T ####[address] Emergency Room Note on 07-13-2017 [facility] Note Normal [facility] ([place] Prothrombin Timeon 7 INR Coag RelTime (PPP) 1.0 {INR} Normal 0.9-1.1 [facility] Comment on above: Result Comment: Myron mmended [...] preventMyocardial Infarction Performed By: #### P T ####[place] [address] Prothrombin time (PT) Coag time (PPP) 10.9 s Normal 9.0-12.0 [facility] Comment on above: Result Comment: . Performed By: #### P T ####[address] [address] Sed Rateon 07-13-2017 Sed Rate 15 mm/h Normal 0-20 [facility] Comment on above: Performed By: #### E SR, CRP2, QWAL, CRTN3 ####[address] [address] [place] [address] Serum Drug Screenon 07-13-20 17 Specimen Type Whole Blood Normal [facility] Comment on above: Performed By: #### P T ####[address] [place] [address] Volatiles None Detected Normal [facility] Comment on above: Performed By: #### P T ####[address] [address] [place] [address] Acetaminophen mass conc NONE DETECTED Normal 10.0-20.0 [facility] Comment on above: Performed By: #### P T ####[address] [place] [address] Salicylates NONE DETECTED Normal 0.0-25.0 [facility] Comment on above: Result Comment: NORM AL RANGEAnalgesic 3-96Xrkh-ajcisigqevhs 10-25 Performed By: #### P T ####[address] [address] [place] [address] Tri. Antidepressant Screen Negative Normal [facility] Comment on above: Result Comment: Tric yclic antidepressants have been screened for byimmunoassay at 300 ng/mL threshold. Performed By: #### P T ####[address] [place] [address] TS GELon 07-13-2017 TS GEL PATIENT: LESIA OTERO LOC: 1EDI,1ECB,28BILL# : [id number] : 1995 SEX: F AGE: 22ORDERED BY: CANDACE CHI ORDERED : 07/13/2017 02:15 COLLECTED: 07/13/2017 02:28ORDER : [id number] RECEIVED : 07/13/2017 03:47 TEST NAME RESULT UNITS RANGES ABN FL STABO Group O FRh, Gel POS FAntibody Screen Gel POS F ------ Normal [facility] Comment on above: Performed By: #### T SGL, ABID, E-A, LC-A ####[address] [address] XR HAND MINIMUM 3 VIEWS RIGH Ton [...] PM Sign Date: 07/12/2017 11:51:04 PM Normal [facility] ([place]) hCG Qual Pregon 07-13-2017 hCG Qual Preg Negative Normal [facility] Comment on above: Result Comment: REF RANGE:Negative .... < 3Questionable Rpt 48-72 HrPositive ..... > 10 Performed By: #### E SR, CRP2, QWAL, CRTN3 ####[address] [address] DDI VIBRATION CONTROLLED TRA NSIENT ELASTOGRAPHY (VCTE) [facility] Vital Signs Date Time Vital Sign Value Performing Clinician Facility 05-02-2025 10:52-0400 Body mass index (BMI) [Ratio] 31.78 kg/m2 Wendi Robb MD Work Phone: [facility] 05-02-2025 10:52-0400 Body weight 86.64 kg Wendi Robb MD Work Phone: [facility] 05-02-2025 10:52-0400 Diastolic blood pressure 74 mm[Hg] Wendi Robb MD Work Phone: [facility] 05-02-2025 10:52-0400 Systolic blood pressure 118 mm[Hg] Wendi Robb MD Work Phone: [facility] 04-04-2025 09:17-0400 Body mass index (BMI) [Ratio] 30.75 kg/m2 Bernardo Coon MD Work Phone: [facility] 04-04-2025 09:17-0400 Body weight 83.83 kg Bernardo Coon MD Work Phone: [facility] 04-04-2025 09:17-0400 Diastolic blood pressure 62 mm[Hg] Bernardo Coon MD Work Phone: [facility] 04-04-2025 09:17-0400 Systolic blood pressure 100 mm[Hg] Bernardo Coon MD Work Phone: [facility] 03-13-2025 14:51-0400 Body mass index (BMI) [Ratio] 32.12 kg/m2 Wendi Robb MD Work Phone: [facility] 03-13-2025 14:51-0400 Body weight 87.54 kg Wendi Robb MD Work Phone: [facility] 03-13-2025 14:51-0400 Diastolic blood pressure 68 mm[Hg] Wendi Robb MD Work Phone: [facility] 03-13-2025 14:51-0400 Systolic blood pressure 112 mm[Hg] Wendi Robb MD Work Phone: [facility] 03-07-2025 11:04-0400 Body mass index (BMI) [Ratio] 31.78 kg/m2 Wendi Robb MD Work Phone: [facility] 03-07-2025 11:04-0400 Body weight 86.64 kg Wendi Robb MD Work Phone: [facility] 03-07-2025 11:04-0400 Diastolic blood pressure 76 mm[Hg] Wendi Robb MD Work Phone: [facility] 03-07-2025 11:04-0400 Systolic blood pressure 116 mm[Hg] Wendi Robb MD Work Phone: [facility] 03-01-2025 11:03-0400 Body mass index (BMI) [Ratio] 31.62 kg/m2 Wendi Robb MD Work Phone: [facility] 03-01-2025 11:03-0400 Body weight 86.18 kg Wendi Robb MD Work Phone: [facility] 03-01-2025 11:03-0400 Diastolic blood pressure 78 mm[Hg] Wendi Robb MD Work Phone: [facility] 03-01-2025 11:03-0400 Systolic blood pressure 118 mm[Hg] Wendi Robb MD Work Phone: [facility] 02-14-2025 13:34-0400 Body mass index (BMI) [Ratio] 31.12 kg/m2 Lachelle Kramer MD Work Phone: [facility] 02-14-2025 13:34-0400 Body weight 84.82 kg Lachelle Kramer MD Work Phone: [facility] 02-14-2025 13:34-0400 Diastolic blood pressure 72 mm[Hg] Lachelle Kramer MD Work Phone: [facility] 02-14-2025 13:34-0400 Systolic blood pressure 114 mm[Hg] Lachelle Kramer MD Work Phone: [facility] 01-31-2025 11:42-0400 Body mass index (BMI) [Ratio] 29.79 kg/m2 Wendi Robb MD Work Phone: [facility] 01-31-2025 11:42-0400 Body weight 81.19 kg Wendi Robb MD Work Phone: [facility] 01-31-2025 11:42-0400 Diastolic blood pressure 62 mm[Hg] Wendi Robb MD Work Phone: [facility] 01-31-2025 11:42-0400 Systolic blood pressure 108 mm[Hg] Wendi Robb MD Work Phone: [facility] 01-17-2025 13:20-0400 Body mass index (BMI) [Ratio] 29.62 kg/m2 Wendi Robb MD Work Phone: [facility] 01-17-2025 13:20-0400 Body weight 80.74 kg Wendi Robb MD Work Phone: [facility] 01-17-2025 13:20-0400 Diastolic blood pressure 68 mm[Hg] Wendi Robb MD Work Phone: [facility] 01-17-2025 13:20-0400 Systolic blood pressure 114 mm[Hg] Wendi Robb MD Work Phone: [facility] 01-03-2025 13:22-0400 Body mass index (BMI) [Ratio] 30.62 kg/m2 Emily Boss MD Work Phone: [facility] 01-03-2025 13:22-0400 Body weight 83.46 kg Emily Bsos MD Work Phone: [facility] 01-03-2025 13:22-0400 Diastolic blood pressure 60 mm[Hg] Emily Boss MD Work Phone: [facility] 01-03-2025 13:22-0400 Systolic blood pressure 100 mm[Hg] Emily Boss MD Work Phone: [facility] 12-20-2024 13:33-0400 Body mass index (BMI) [Ratio] 30.09 kg/m2 Wendi Robb MD Work Phone: [facility] 12-20-2024 13:33-0400 Body weight 82.01 kg Wendi Robb MD Work Phone: [facility] 12-20-2024 13:33-0400 Diastolic blood pressure 76 mm[Hg] Wendi Robb MD Work Phone: [facility] 12-20-2024 13:33-0400 Systolic blood pressure 110 mm[Hg] Wendi Robb MD Work Phone: [facility] 12-06-2024 11:37-0400 Body mass index (BMI) [Ratio] 28.62 kg/m2 Wendi Robb MD Work Phone: [facility] 12-06-2024 11:37-0400 Body weight 78.02 kg Wendi Robb MD Work Phone: [facility] 12-06-2024 11:37-0400 Diastolic blood pressure 74 mm[Hg] Wendi Robb MD Work Phone: [facility] 12-06-2024 11:37-0400 Systolic blood pressure 116 mm[Hg] Wendi Robb MD Work Phone: [facility] 11-22-2024 13:50-0400 Body mass index (BMI) [Ratio] 28.54 kg/m2 Lachelle Hickman MD Work Phone: [facility] 11-22-2024 13:50-0400 Body weight 77.8 kg Lachelle Hickman MD Work Phone: [facility] 11-22-2024 13:50-0400 Diastolic blood pressure 62 mm[Hg] Lachelle Hickman MD Work Phone: [facility] 11-22-2024 13:50-0400 Heart rate 90 /min Lachelle Hickman MD Work Phone: [facility] 11-22-2024 13:50-0400 SaO2% (BldA) [Mass fraction] 99 % Lachelle Hickman MD Work Phone: [facility] 11-22-2024 13:50-0400 Systolic blood pressure 117 mm[Hg] Lachelle Hickman MD Work Phone: [facility] 11-08-2024 14:31-0500 Body mass index (BMI) [Ratio] 29.29 kg/m2 Wendi Robb MD Work Phone: [facility] 11-08-2024 14:31-0500 Body weight 79.83 kg Wendi Robb MD Work Phone: [facility] 11-08-2024 14:31-0500 Diastolic blood pressure 64 mm[Hg] Wendi Robb MD Work Phone: [facility] 11-08-2024 14:31-0500 Systolic blood pressure 112 mm[Hg] Wendi Robb MD Work Phone: [facility] 10-11-2024 10:23-0500 Body mass index (BMI) [Ratio] 28.46 kg/m2 Lorena Sharma APRN.CNM Work Phone: [facility] 10-11-2024 10:23-0500 Body weight 77.56 kg Lorena Sharma APRN.CNM Work Phone: [facility] 10-11-2024 10:23-0500 Diastolic blood pressure 68 mm[Hg] Lorena Sharma APRN.CNM Work Phone: [facility] 10-11-2024 10:23-0500 Systolic blood pressure 100 mm[Hg] Lorena Sharma APRN.CNM Work Phone: [facility] 10-03-2024 11:16-0500 Body mass index (BMI) [Ratio] 28.84 kg/m2 Francisco Clutter PA-C Work Phone: [facility] 10-03-2024 11:16-0500 Body temperature 97.9 [degF] Francisco Clutter PA-C Work Phone: [facility] 10-03-2024 11:16-0500 Body weight 78.6 kg Francisco Clutter PA-C Work Phone: [facility] 10-03-2024 11:16-0500 Diastolic blood pressure 72 mm[Hg] Francisco Clutter PA-C Work Phone: [facility] 10-03-2024 11:16-0500 Heart rate 98 /min Francisco Clutter PA-C Work Phone: [facility] 10-03-2024 11:16-0500 Respiratory rate 18 /min Francisco Clutter PA-C Work Phone: [facility] 10-03-2024 11:16-0500 SaO2% (BldA) [Mass fraction] 99 % Francisco Clutter PA-C Work Phone: [facility] 10-03-2024 11:16-0500 Systolic blood pressure 110 mm[Hg] Francisco Clutter PA-C Work Phone: [facility] 09-13-2024 13:33-0500 Body mass index (BMI) [Ratio] 28.46 kg/m2 Wendi Robb MD Work Phone: [facility] 09-13-2024 13:33-0500 Body weight 77.56 kg Wendi Robb MD Work Phone: [facility] 09-13-2024 13:33-0500 Diastolic blood pressure 76 mm[Hg] Wendi Robb MD Work Phone: [facility] 09-13-2024 13:33-0500 Systolic blood pressure 114 mm[Hg] Wendi Robb MD Work Phone: [facility] 08-02-2024 10:52-0500 Body height 165.1 cm Rylee Scott APRN.ELECTRICAL WIRER Work Phone: [facility] 08-02-2024 10:52-0500 Body mass index (BMI) [Ratio] 28.12 kg/m2 Rylee Scott DIRECTOR OF [employer].ELECTRICAL WIRER Work Phone: [facility] 08-02-2024 10:52-0500 Body weight 76.66 kg Rylee Scott APRN.ELECTRICAL WIRER Work Phone: [facility] 08-02-2024 10:52-0500 Diastolic blood pressure 64 mm[Hg] Rylee Aggarwalury DIRECTOR OF [employer].ELECTRICAL WIRER Work Phone: [facility] 08-02-2024 10:52-0500 Systolic blood pressure 110 mm[Hg] Rylee Aggarwalury DIRECTOR OF [employer].ELECTRICAL WIRER Work Phone: [facility] 07-05-2024 09:50-0400 Body mass index (BMI) [Ratio] 29.07 kg/m2 Gricelda Moomaw DIRECTOR OF [employer].ELECTRICAL WIRER Work Phone: [facility] 07-05-2024 09:50-0400 Body temperature 97.2 [degF] Gricelda Moomaw DIRECTOR OF [employer].ELECTRICAL WIRER Work Phone: [facility] 07-05-2024 09:50-0400 Body weight 78.2 kg Gricelda Moomaw DIRECTOR OF [employer].ELECTRICAL WIRER Work Phone: [facility] 07-05-2024 09:50-0400 Diastolic blood pressure 80 mm[Hg] Gricelda Moomaw DIRECTOR OF [employer].ELECTRICAL WIRER Work Phone: [facility] 07-05-2024 09:50-0400 Heart rate 77 /min Gricelda Moomaw DIRECTOR OF [employer].ELECTRICAL WIRER Work Phone: [facility] 07-05-2024 09:50-0400 Respiratory rate 18 /min Gricelda Moomaw DIRECTOR OF [employer].ELECTRICAL WIRER Work Phone: [facility] 07-05-2024 09:50-0400 SaO2% (BldA) [Mass fraction] 99 % Gricelda Moomaw DIRECTOR OF [employer].ELECTRICAL WIRER Work Phone: [facility] 07-05-2024 09:50-0400 Systolic blood pressure 119 mm[Hg] Gricelda Moomaw DIRECTOR OF [employer].ELECTRICAL WIRER Work Phone: [facility] 10-14-2023 08:30-0500 Body temperature 97.11 [degF] Lorena Singh DIRECTOR OF [employer].ELECTRICAL WIRER Work Phone: [facility] 10-14-2023 08:30-0500 Body weight 91.17 kg Lorena Singh DIRECTOR OF [employer].ELECTRICAL WIRER Work Phone: [facility] 10-14-2023 08:30-0500 Diastolic blood pressure 75 mm[Hg] Lorena Singh DIRECTOR OF [employer].ELECTRICAL WIRER Work Phone: [facility] 10-14-2023 08:30-0500 Heart rate 100 /min Lorena Singh DIRECTOR OF [employer].ELECTRICAL WIRER Work Phone: [facility] 10-14-2023 08:30-0500 Respiratory rate 20 /min Lorena Singh DIRECTOR OF [employer].ELECTRICAL WIRER Work Phone: [facility] 10-14-2023 08:30-0500 SaO2% (BldA) [Mass fraction] 98 % Lorena Singh DIRECTOR OF [employer].ELECTRICAL WIRER Work Phone: [facility] 10-14-2023 08:30-0500 Systolic blood pressure 106 mm[Hg] Lorena Singh DIRECTOR OF [employer].ELECTRICAL WIRER Work Phone: [facility] 08-04-2023 11:30-0500 Body temperature 97 [degF] Krislyn Aberegg PA Work Phone: [facility] 08-04-2023 11:30-0500 Body weight 94.8 kg Krislyn Aberegg PA Work Phone: [facility] 08-04-2023 11:30-0500 Diastolic blood pressure 62 mm[Hg] Krislyn Aberegg PA Work Phone: [facility] 08-04-2023 11:30-0500 Heart rate 89 /min Krislyn Aberegg PA Work Phone: [facility] 08-04-2023 11:30-0500 Respiratory rate 16 /min Krislyn Aberegg PA Work Phone: [facility] 08-04-2023 11:30-0500 SaO2% (BldA) [Mass fraction] 98 % Krislyn Aberegg PA Work Phone: [facility] 08-04-2023 11:30-0500 Systolic blood pressure 116 mm[Hg] Krislyn Aberegg PA Work Phone: [facility] 09-09-2022 10:09-0500 Body height 162.6 cm Wendi Robb MD Work Phone: [facility] 09-09-2022 10:09-0500 Body weight 77.11 kg Wendi Robb MD Work Phone: [facility] 09-09-2022 10:09-0500 Diastolic blood pressure 64 mm[Hg] Wendi Robb MD Work Phone: [facility] 09-09-2022 10:09-0500 Systolic blood pressure 102 mm[Hg] Wendi Robb MD Work Phone: [facility] 08-12-2022 09:22-0500 Body weight 78.02 kg Wendi Robb MD Work Phone: [facility] 08-12-2022 09:22-0500 Diastolic blood pressure 74 mm[Hg] Wendi Robb MD Work Phone: [facility] 08-12-2022 09:22-0500 Systolic blood pressure 116 mm[Hg] Wendi Robb MD Work Phone: [facility] 08-07-2022 13:39-0500 Body temperature 96 [degF] [facility] Work Phone: 08-07-2022 13:39-0500 Diastolic blood pressure 64 mm[Hg] [facility] Work Phone: 08-07-2022 13:39-0500 Heart rate 91 /min [facility] Work Phone: 08-07-2022 13:39-0500 Respiratory rate 18 /min [facility] Work Phone: 08-07-2022 13:39-0500 Systolic blood pressure 112 mm[Hg] [facility] Work Phone: 08-07-2022 02:17-0500 SaO2% (BldA) [Mass fraction] 94 % [facility] Work Phone: 08-05-2022 07:16-0500 Body height 160.02 cm [facility] Work Phone: 08-05-2022 07:16-0500 Body mass index (BMI) [Ratio] 32.4 kg/m2 [facility] Work Phone: 08-05-2022 07:16-0500 Body weight 83 kg [facility] Work Phone: 07-29-2022 15:47-0500 Body weight 80.74 kg Wendi Robb MD Work Phone: [facility] 07-29-2022 15:47-0500 Diastolic blood pressure 70 mm[Hg] Wendi Robb MD Work Phone: [facility] 07-29-2022 15:47-0500 Systolic blood pressure 120 mm[Hg] Wendi Robb MD Work Phone: [facility] 07-21-2022 09:03-0500 Body weight 82.1 kg Alfredo Benitez MD Work Phone: [facility] 07-21-2022 09:03-0500 Diastolic blood pressure 68 mm[Hg] Alfredo Benitez MD Work Phone: [facility] 07-21-2022 09:03-0500 Systolic blood pressure 104 mm[Hg] Alfredo Benitez MD Work Phone: [facility] 07-14-2022 07:53-0500 Body weight 80.83 kg Ob Ultrasound Work Phone: [facility] 07-14-2022 07:53-0500 Diastolic blood pressure 62 mm[Hg] [facility] Work Phone: [facility] 07-14-2022 07:53-0500 Systolic blood pressure 102 mm[Hg] Ob Ultrasound Work Phone: [facility] 07-07-2022 09:52-0400 Body weight 79.38 kg Wendi Robb MD Work Phone: [facility] 07-07-2022 09:52-0400 Diastolic blood pressure 60 mm[Hg] Wendi Robb MD Work Phone: [facility] 07-07-2022 09:52-0400 Systolic blood pressure 102 mm[Hg] Wendi Robb MD [facility]: [facility] [facility] 06-27-2022 16:10-0400 Body temperature 97.9 [degF] No Primary Care Physician [facility] Work Phone: 06-27-2022 16:10-0400 Diastolic blood pressure 59 mm[Hg] No Primary Care Physician [facility] Work Phone: 06-27-2022 16:10-0400 Heart rate 76 /min No Primary Care Physician [facility] Work Phone: 06-27-2022 16:10-0400 Systolic blood pressure 112 mm[Hg] No Primary Care Physician [facility] Work Phone: 06-27-2022 16:00-0400 Body height 160.02 cm No Primary Care Physician [facility] Work Phone: 06-27-2022 16:00-0400 Body mass index (BMI) [Ratio] 30.9 kg/m2 No Primary Care Physician [facility] Work Phone: 06-27-2022 16:00-0400 Body weight 79.1 kg No Primary Care Physician [facility] Work Phone: 06-26-2022 13:43-0400 Body weight 79.65 kg Wendi Robb MD Work Phone: [facility] 06-26-2022 13:43-0400 Diastolic blood pressure 68 mm[Hg] Wendi Robb MD Work Phone: [facility] 06-26-2022 13:43-0400 Systolic blood pressure 106 mm[Hg] Wendi Robb MD Work Phone: [facility] 06-10-2022 15:55-0400 Body weight 80.29 kg Wendi Robb MD Work Phone: [facility] 06-10-2022 15:55-0400 Diastolic blood pressure 58 mm[Hg] Wendi Robb MD Work Phone: [facility] 06-10-2022 15:55-0400 Systolic blood pressure 104 mm[Hg] Wendi Robb MD Work Phone: [facility] 05-25-2022 08:55-0400 Body weight 79.83 kg Wendi Robb MD Work Phone: [facility] 05-25-2022 08:55-0400 Diastolic blood pressure 58 mm[Hg] Wendi Robb MD Work Phone: [facility] 05-25-2022 08:55-0400 Systolic blood pressure 98 mm[Hg] Wendi Robb MD Work Phone: [facility] 05-08-2022 00:33-0400 Heart rate 76 /min No Primary Care Physician [facility] Work Phone: 05-08-2022 00:33-0400 Respiratory rate 16 /min No Primary Care Physician [facility] Work Phone: 05-08-2022 00:33-0400 SaO2% (BldA) [Mass fraction] 97 % No Primary Care Physician [facility] Work Phone: 05-07-2022 23:03-0400 Body height 162.56 cm No Primary Care Physician [facility] Work Phone: 05-07-2022 23:03-0400 Body mass index (BMI) [Ratio] 31.1 kg/m2 No Primary Care Physician [facility] Work Phone: 05-07-2022 23:03-0400 Body temperature 98.4 [degF] No Primary Care Physician [facility] Work Phone: 05-07-2022 23:03-0400 Body weight 82.4 kg No Primary Care Physician [facility] Work Phone: 05-07-2022 23:03-0400 Diastolic blood pressure 80 mm[Hg] No Primary Care Physician [facility] Work Phone: 05-07-2022 23:03-0400 Systolic blood pressure 118 mm[Hg] No Primary Care Physician [facility] Work Phone: 04-24-2022 08:39-0400 Body weight 76.2 kg Wendi Robb MD Work Phone: [facility] 04-24-2022 08:39-0400 Diastolic blood pressure 60 mm[Hg] Wendi Robb MD Work Phone: [facility] 04-24-2022 08:39-0400 Systolic blood pressure 104 mm[Hg] Wendi Robb MD Work Phone: [facility] 03-17-2022 10:13-0400 Body weight 69.4 kg Wendi Robb MD Work Phone: [facility] 03-17-2022 10:13-0400 Diastolic blood pressure 68 mm[Hg] Wendi Robb MD Work Phone: [facility] 03-17-2022 10:13-0400 Systolic blood pressure 110 mm[Hg] Wendi Robb MD Work Phone: [facility] 03-12-2022 12:09-0400 Body temperature 98.4 [degF] No Primary Care Physician [facility] Work Phone: 03-12-2022 12:09-0400 Diastolic blood pressure 64 mm[Hg] No Primary Care Physician [facility] Work Phone: 03-12-2022 12:09-0400 Heart rate 89 /min No Primary Care Physician [facility] Work Phone: 03-12-2022 12:09-0400 Respiratory rate 16 /min No Primary Care Physician [facility] Work Phone: 03-12-2022 12:09-0400 SaO2% (BldA) [Mass fraction] 99 % No Primary Care Physician [facility] Work Phone: 03-12-2022 12:09-0400 Systolic blood pressure 130 mm[Hg] No Primary Care Physician [facility] Work Phone: 02-27-2022 13:36-0400 Body temperature 97.8 [degF] No Primary Care Physician [facility] Work Phone: 02-27-2022 13:36-0400 Diastolic blood pressure 78 mm[Hg] No Primary Care Physician [facility] Work Phone: 02-27-2022 13:36-0400 Heart rate 78 /min No Primary Care Physician [facility] Work Phone: 02-27-2022 13:36-0400 Respiratory rate 14 /min No Primary Care Physician [facility] Work Phone: 02-27-2022 13:36-0400 SaO2% (BldA) [Mass fraction] 99 % No Primary Care Physician [facility] Work Phone: 02-27-2022 13:36-0400 Systolic blood pressure 132 mm[Hg] No Primary Care Physician [facility] Work Phone: 02-27-2022 12:27-0400 Body mass index (BMI) [Ratio] 26.9 kg/m2 No Primary Care Physician [facility] Work Phone: 02-27-2022 12:27-0400 Body weight 68.8 kg No Primary Care Physician [facility] Work Phone: 02-17-2022 11:15-0400 Body weight 66.22 kg Wendi Robb MD Work Phone: [facility] 02-17-2022 11:15-0400 Diastolic blood pressure 58 mm[Hg] Wendi Robb MD Work Phone: [facility] 02-17-2022 11:15-0400 Systolic blood pressure 98 mm[Hg] Wendi Robb MD Work Phone: [facility] 01-26-2022 23:45-0400 Diastolic blood pressure 88 mm[Hg] [facility] Work Phone: 01-26-2022 23:45-0400 Heart rate 80 /min [facility] Work Phone: 01-26-2022 23:45-0400 Respiratory rate 16 /min [facility] Work Phone: 01-26-2022 23:45-0400 SaO2% (BldA) [Mass fraction] 98 % [facility] Work Phone: 01-26-2022 23:45-0400 Systolic blood pressure 110 mm[Hg] [facility] Work Phone: 01-26-2022 23:05-0400 Body height 160.02 cm [facility] Work Phone: 01-26-2022 23:05-0400 Body mass index (BMI) [Ratio] 24.7 kg/m2 [facility] Work Phone: 01-26-2022 23:05-0400 Body temperature 98 [degF] [facility] Work Phone: 01-26-2022 23:05-0400 Body weight 63.5 kg [facility] Work Phone: 01-20-2022 13:49-0400 Body weight 62.14 kg Alfredo Benitez MD Work Phone: [facility] 01-20-2022 13:49-0400 Diastolic blood pressure 52 mm[Hg] Alfredo Benitez MD Work Phone: [facility] 01-20-2022 13:49-0400 Systolic blood pressure 98 mm[Hg] Alfredo Benitez MD Work Phone: [facility] 01-02-2022 10:29-0400 Body height 162.6 cm Wendi Robb MD Work Phone: [facility] 01-02-2022 10:29-0400 Body weight 63.05 kg Wendi Robb MD Work Phone: [facility] 01-02-2022 10:29-0400 Diastolic blood pressure 62 mm[Hg] Wendi Robb MD Work Phone: [facility] 01-02-2022 10:29-0400 Systolic blood pressure 96 mm[Hg] Wendi Robb MD Work Phone: [facility] 12-23-2021 22:45-0400 Diastolic blood pressure 74 mm[Hg] [facility] Work Phone: 12-23-2021 22:45-0400 Heart rate 97 /min [facility] Work Phone: 12-23-2021 22:45-0400 Respiratory rate 14 /min [facility] Work Phone: 12-23-2021 22:45-0400 SaO2% (BldA) [Mass fraction] 97 % [facility] Work Phone: 12-23-2021 22:45-0400 Systolic blood pressure 109 mm[Hg] [facility] Work Phone: 12-23-2021 20:27-0400 Body height 162.56 cm [facility] Work Phone: 12-23-2021 20:27-0400 Body mass index (BMI) [Ratio] 20.5 kg/m2 [facility] Work Phone: 12-23-2021 20:27-0400 Body temperature 97.1 [degF] [facility] Work Phone: 12-23-2021 20:27-0400 Body weight 54.43 kg [facility] Work Phone: Encounters Encounter Date Encounter Type Care Provider Facility Start: 05-11-2025 ambulatory No Primary Car e Physician Facility:[facility] Start: 05-04-2025 Encounter for other preprocedural examination Wendi Robb [facility] Start: 05-02-2025 End: 05-02-2025 Patient encounter procedure Wendi Robb MD Work Phone: OB/Gynecology Comment on above: care and examination (HCC) (Primary Dx); Screening for malignant neoplasm of cervix; Special screening examination for human papillomavirus (HPV) Start: 05-02-2025 End: 05-02-2025 ambulatory TERESO SHAIKH Facility:[facility] Start: 04-05-2025 End: 04-05-2025 Telephone encounter Nurse Fro[employer] Selector Sherisonya Sheldon Work Phone: Obstetrics/Gynecology Comment on above: PRAF Start: 04-04-2025 End: 04-04-2025 Patient encounter procedure Bernardo Coon MD Work Phone: OB/Gynecology Comment on above: Post depressi on (Primary Dx) Start: 04-04-2025 End: 04-04-2025 ambulatory JEREMIAS DELON Facility:[facility] Start: 03-19-2025 End: 03-19-2025 ambulatory Lorena Sharma DIRECTOR OF [employer].CNM Work Phone: OB/Gynecology Comment on above: Ob Delivery Note Start: 03-19-2025 ambulatory No Primary Car e Physician Facility:[facility] Start: 03-17-2025 End: 03-18-2025 Evaluation and management of inpatient Lorena Sharma Facility:[facility] Start: 03-16-2025 End: 03-16-2025 Telephone encounter Lorena Zachary BURGOSN.CNM Work Phone: OB/Gynecology Comment on above: OB spotting Start: 03-15-2025 End: 03-15-2025 Telephone encounter Wendi Robb MD Work Phone: OB/Gynecology Start: 03-13-2025 End: 03-13-2025 Patient encounter procedure Wendi Robb MD Work Phone: OB/Gynecology Comment on above: Supervision of high risk due to social problems, third trimester (HCC) (Primary Dx); 38 weeks gestation of (HCC); Vaginal discharge during in third trimester (HCC); History of herpes genitalis Start: 03-13-2025 End: 03-13-2025 ambulatory JEREMIAS DELON Facility:[facility] Start: 03-07-2025 End: 03-07-2025 Patient encounter procedure Wendi Robb MD Work Phone: OB/Gynecology Comment on above: Supervision of high risk due to social problems, third trimester (HCC) (Primary Dx); 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, single or unspecified fetus (HCC); 37 weeks gestation of (HCC) Start: 03-07-2025 End: 03-07-2025 [facility] Start: 03-02-2025 End: 05-02-2025 Follow-up encounter Wendi Robb MD Work Phone: OB/Gynecology Start: 03-01-2025 End: 03-01-2025 Patient encounter procedure Wendi Robb MD Work Phone: OB/Gynecology Comment on above: Supervision of high risk due to social problems, third trimester (HCC) (Primary Dx); 36 weeks gestation of (HCC); History of herpes genitalis Start: 03-01-2025 End: 03-01-2025 ambulatory [facility] DELON Facility:[facility] Start: 02-15-2025 End: 04-17-2025 Follow-up encounter Rylee Scott APRN.CNP Work Phone: OB/Gynecology Start: 02-14-2025 End: 02-14-2025 Office outpatient visit 15 minutes Lachelle Kramer MD Work Phone: OB/Gynecology Comment on above: Supervision of high risk due to social problems, third trimester (HCC) (Primary Dx); 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, single or unspecified fetus (HCC); 34 weeks gestation of (HCC) Start: 02-14-2025 End: 02-14-2025 Patient encounter procedure i Tech 1 [employer] Maternal Medicine Comment on above: Anti-E isoimmunizati on affecting in second trimester, single or unspecified fetus (HCC) (Primary Dx); Maternal care for isoimmunization, second trimester, single gestation (HCC); History of hepatitis C; Tobacco smoking complicating in first trimester (HCC) Start: 02-14-2025 End: 02-14-2025 ambulatory [facility] DELON Facility:[facility] Start: 01-31-2025 End: 01-31-2025 Patient encounter procedure Wendi Robb MD Work Phone: OB/Gynecology Comment on above: Supervision of high risk due to social problems, third trimester (HCC) (Primary Dx); 32 weeks gestation of (HCC); 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, single or unspecified fetus (HCC) Start: 01-31-2025 End: 01-31-2025 ambulatory JEREMIAS SHAIKH Facility:[facility] Start: 01-17-2025 End: 03-19-2025 Follow-up encounter Wendi Robb MD Work Phone: OB/Gynecology Start: 01-17-2025 End: 01-17-2025 Patient encounter procedure Wendi Robb MD Work Phone: OB/Gynecology Comment on above: Supervision of high risk due to social problems, third trimester (HCC) (Primary Dx); 30 weeks gestation of (HCC) Encounter for ultras ound to check growth (HCC) (Primary Dx); Maternal care for isoimmunization, second trimester, single gestation (HCC); 30 weeks gestation of (HCC) Start: 01-17-2025 End: 01-17-2025 ambulatory [facility] DELON Facility:[facility] Start: 01-08-2025 End: 03-10-2025 Follow-up encounter Rylee Scott APRN.CNP Work Phone: OB/Gynecology Start: 01-04-2025 End: 01-04-2025 Telephone encounter Nurse [employer]or Aditya Chung Work Phone: Obstetrics/Gynecology Comment on above: PRAF Start: 01-03-2025 End: 01-03-2025 Patient encounter procedure Emily Boss MD Work Phone: OB/Gynecology Comment on above: Supervision of high risk due to social problems, third trimester (HCC) (Primary Dx); 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, single or unspecified fetus (HCC); 28 weeks gestation of (HCC); Need for vaccination Start: 01-03-2025 End: 01-03-2025 [facility] Start: 01-01-2025 End: 01-01-2025 Telephone encounter Leticia Shultz RN Obstetrics/Gynecolog y Comment on above: Follow Up Phone Call (28-32 week follow up call with OB Navigator ) Start: 12-20-2024 End: 12-20-2024 Patient encounter procedure Wendi Robb MD Work Phone: OB/Gynecology Comment on [...] Start: 12-20-2024 End: 12-20-2024 ambulatory TERESO SHAIKH Facility:[facility] Start: 12-07-2024 End: 12-07-2024 Follow-up encounter Roxanne Cordoba [facility] Work Phone: Genetic [facility] Start: 12-07-2024 End: 12-07-2024 Telephone encounter Lachelle Hickman MD Work Phone: Maternal Medicine [facility] Start: 12-06-2024 End: 12-06-2024 ambulatory Lachelle Hickman MD Work Phone: Maternal Medicine Comment on above: Anti-E isoimmunizati on affecting in second trimester, single or unspecified fetus (HCC) (Primary Dx) Start: 12-06-2024 End: 12-06-2024 Telemedicine consultation with patient Lachelle Hickman MD Work Phone: Maternal Medicine Start: 12-06-2024 End: 12-06-2024 ambulatory TERESO SHAIKH Facility:[facility] Start: 12-06-2024 End: 12-06-2024 Patient encounter procedure Wendi Robb MD Work Phone: OB/Gynecology Comment on above: Supervision of high risk in second trimester (HCC) (Primary Dx); 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, single or unspecified fetus (HCC); Tobacco smoking complicating in second trimester ([facility]); 24 weeks gestation of ([facility]) Encounter for ultras ound to check growth ([facility]) (Primary Dx); Maternal care for isoimmunization, second trimester, single gestation ([facility]); Supervision of high risk in second trimester ([facility]); 24 weeks gestation of ([facility]) Start: 11-29-2024 End: 11-29-2024 ambulatory TERESO SHAIKH Facility:[facility] Start: 11-29-2024 End: 11-29-2024 Patient encounter procedure Roxanne Cordoba [facility] Work Phone: Spotistic [facility] Comment on above: 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, second trimester, not applicable or unspecified fetus (Primary Dx); care, subsequent , second trimester Start: 11-27-2024 End: 11-27-2024 ambulatory [facility] Work Phone: [facility] Comment on above: 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, second trimester, not applicable or unspecified fetus (Primary Dx) Start: 11-27-2024 End: 11-27-2024 Telemedicine consultation with patient Roxanne Cordoba [facility] Work Phone: [facility] Start: 11-23-2024 End: 11-23-2024 Orders Only Lachelle [...] or unspecified fetus; History of drug abuse ([facility]); Family history of congenital heart defect; History of depression Start: 11-22-2024 End: 11-22-2024 ambulatory JEREMIAS DELON Facility:[facility] Start: 11-22-2024 End: 01-22-2025 Follow-up encounter Wendi Robb MD Work Phone: OB/Gynecology Start: 11-22-2024 End: 11-22-2024 Patient encounter procedure Lachelle Hickman MD Work Phone: Maternal Medicine Comment on above: Maternal care for is oimmunization, second trimester, single gestation; Supervision of high risk in second trimester Start: 11-22-2024 End: 11-22-2024 Telephone encounter Zina Campo Start: 11-09-2024 End: 11-09-2024 Telephone encounter Nurse [employer] Selector Aditya Acme Work Phone: Obstetrics/Gynecology Comment on above: PRAF Start: 11-08-2024 End: 11-08-2024 ambulatory JEREMIAS DELON Facility:[facility] Start: 11-08-2024 End: 11-08-2024 Patient encounter procedure Wendi Robb MD Work Phone: OB/Gynecology Comment on above: Supervision of high risk in second trimester (Primary Dx); Anti-E isoimmunization affecting in second trimester, single or unspecified fetus; 20 weeks gestation of Start: 11-08-2024 End: 11-08-2024 ambulatory JEREMIAS SHAIKH Facility:[facility] Start: 11-08-2024 End: 11-08-2024 Patient encounter procedure Whi Tech 1 [employer] [facility] [facility] Comment on above: Encounter for anatomic survey (Primary Dx); 20 weeks gestation of ; Anti-E isoimmunization affecting in second trimester, single or unspecified fetus Start: 11-07-2024 End: 01-07-2025 Follow-up encounter Wendi Robb MD Work Phone: OB/Gynecology Comment on above: WOC Appointments (OB US q 2 weeks) Start: 11-03-2024 End: 11-07-2024 Telephone encounter Rema Alfred MD Work Phone: OB/Gynecology Comment on above: OB Question about Re sults Start: 10-30-2024 End: 10-30-2024 ambulatory JEREMIAS DELON Facility:[facility] Start: 10-11-2024 End: 10-11-2024 ambulatory [facility] DEL[facility] Facility:[facility] Start: 10-11-2024 End: 10-11-2024 Patient encounter procedure Lorena Sharma APRN.CNM Work Phone: OB/Gynecology Comment on above: Supervision of high risk in second trimester (Primary Dx); 16 weeks gestation of ; Anti-E 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, single or unspecified fetus; Tobacco smoking complicating in second trimester; Marijuana use during ; History of hepatitis C; History of depression Start: 10-03-2024 End: 10-03-2024 [facility] Start: 10-03-2024 End: 10-03-2024 Office outpatient visit 25 minutes Francisco Chavez PA-C Work Phone: [facility] Comment on above: Bronchopneumonia (Pr imary Dx) Start: 09-22-2024 End: 09-22-2024 Refill Wendi Robb MD Work Phone: OB/Gynecology Comment on above: Refill Request Start: 09-19-2024 End: 09-20-2024 Refill Wendi Robb MD Work Phone: OB/Gynecology Comment on above: Refill Request Start: 09-14-2024 End: 09-14-2024 Telephone encounter Rylee Scott APRN.ELECTRICAL WIRER Work Phone: OB/Gynecology Comment on above: Results Start: 09-13-2024 End: 09-13-2024 ambulatory [facility] DEL[facility] Facility:[facility] Start: 09-13-2024 End: 09-13-2024 Patient encounter procedure Whi Tech 1 [employer] [facility] [employer] [facility]aternal [facility] Comment on [...] above: PRAF Start: 08-02-2024 End: 08-02-2024 ambulatory TERESO SHAIKH Facility:[facility] Start: 08-02-2024 End: 08-02-2024 Patient encounter procedure Rylee Scott APRN.ELECTRICAL WIRER Work Phone: OB/Gynecology Comment on above: Encounter [...] 07-25-2024 End: 07-25-2024 Telephone encounter Rylee Scott APRN.ELECTRICAL WIRER Work Phone: OB/Gynecology Comment on above: Appointment Start: 07-05-2024 End: 07-05-2024 ambulatory TERESO SHAIKH Facility:[facility] Start: 07-05-2024 End: 07-05-2024 Patient encounter procedure Gricelda Jacksonsonya MICHELE.ELECTRICAL WIRER Work Phone: [facility] Comment on above: Acute cough (Primary Dx) Start: 03-15-2024 Telephone encounter Tereso irby MD Work Phone: Internal Medicine [facility] Comment on above: Needs a letter for n ew SS card Start: 10-14-2023 End: 10-14-2023 Patient encounter procedure Lorena Singh APRN.ELECTRICAL WIRER Work Phone: [facility] Comment on above: Upper respiratory tr act infection, unspecified type (Primary Dx) Start: 08-04-2023 End: 08-04-2023 Patient encounter procedure Ilya PARIS Work Phone: [facility] Comment on above: Sinobronchitis (Prim pamela Dx); URI, acute Start: 01-20-2023 ambulatory Alexandra oNrth RN NURSE O N CALL Comment on above: Information Start: 01-07-2023 ambulatory Wendi chapin MD Work Phone: OB/Gynecology Comment on above: control medica tion Start: 01-07-2023 E-mail encounter fro m caregiver Wendi Robb MD Work Phone: [facility] Start: 01-07-2023 Telephone encounter Wendi Robb MD Work Phone: OB/Gynecology Comment on above: Medication Question (/) Start: 01-05-2023 Refill [facility]imbola Valenzuela PA-C [facility] Comment on above: Refill Request Start: 12-23-2022 Telephone encounter Abimbola white PA-C Work Phone: [facility] Comment on above: Medication Update Start: 12-01-2022 Refill Wendi chapin MD Work Phone: OB/Gynecology Comment on above: Refill Request Start: 11-27-2022 End: 11-27-2022 ambulatory Hepatology A5 Work Phone: Gastroenterology Start: 11-27-2022 End: 11-27-2022 Patient encounter procedure Hepatology Procedures A5 Work Phone: [facility] Start: 11-13-2022 Orders Only Abimbola YEAGERC Work Phone: Gastroenterology Comment on above: Chronic hepatitis C without hepatic coma (HCC) (Primary Dx) Start: 10-27-2022 End: 10-27-2022 Subsequent hospital visit by physician [facility] 2 Work Phone: Radiology Comment on above: Chronic hepatitis C without hepatic coma (HCC) [B18.2] Start: 09-09-2022 End: 09-09-2022 Patient encounter procedure Wendi Robb MD Work Phone: OB/Gynecology Comment on above: care and examination (Primary Dx); Encounter for BCP ( control pills) initial prescription Start: 08-12-2022 End: 08-12-2022 Patient encounter procedure Wendi Robb MD Work Phone: OB/Gynecology Comment on above: Routine f ollow-up (Primary Dx); Chronic active hepatitis (HCC) Start: 08-06-2022 ambulatory Wendi chapin MD Work Phone: OB/Gynecology Comment on above: Ob Delivery Note Start: 08-05-2022 End: 08-07-2022 Evaluation and management of inpatient [facility] [place] [facility] Start: 07-29-2022 End: 07-29-2022 Patient encounter procedure Wendi Robb MD Work Phone: OB/Gynecology Comment on [...] Start: 07-07-2022 End: 07-07-2022 Patient encounter procedure Wendi Robb MD Work Phone: OB/Gynecology Comment on above: 33 weeks gestation o f (Primary Dx); High-risk in third trimester Anti-E isoimmunizati on affecting in second trimester, single or unspecified fetus (Primary Dx); High-risk in third trimester; 33 weeks gestation of Start: 06-27-2022 End: 06-27-2022 ambulatory No Primary Care Physician [facility] Work Phone: Start: 06-27-2022 End: 06-27-2022 Patient encounter procedure No Primary Care Physician [facility] Start: 06-26-2022 End: 06-26-2022 Patient encounter procedure Wendi Robb MD Work Phone: OB/Gynecology Comment on [...] hepatic coma (HCC) Start: 06-25-2022 Telephone encounter Wendi Robb MD Work Phone: OB/Gynecology Comment on above: Orders Start: 06-10-2022 End: 06-10-2022 Patient encounter procedure Wendi Robb MD Work Phone: OB/Gynecology Comment on above: 29 weeks gestation o f (Primary Dx); Supervision of high risk in third trimester; Anti-E isoimmunization affecting in second trimester, single or unspecified fetus Start: 05-25-2022 End: 05-25-2022 Patient encounter procedure Wendi Robb MD Work Phone: OB/Gynecology Comment on above: 27 weeks gestation o f (Primary Dx); Anti-E isoimmunization affecting in second trimester, single or unspecified fetus; High-risk in second trimester; Need for Tdap vaccination Start: 05-08-2022 Telephone encounter Alfredo gilliland MD Work Phone: OB/Gynecology Comment on above: Medication Question Start: 05-07-2022 End: 05-08-2022 [facility] Start: 04-24-2022 End: 04-24-2022 Patient encounter procedure Wendi Robb MD Work Phone: OB/Gynecology Comment on above: High-risk in second trimester (Primary Dx); 22 weeks gestation of ; Anti-E isoimmunization affecting in second trimester, single or unspecified fetus Start: 03-31-2022 End: 03-31-2022 Patient encounter procedure Stephani Cano MD Work Phone: Maternal Medicine Comment on above: Encounter for anatomic survey (Primary Dx); 19 weeks gestation of Start: 03-17-2022 End: 03-17-2022 Patient encounter procedure Wendi Robb MD Work Phone: OB/Gynecology Comment on above: 17 weeks gestation o f (Primary Dx); High-risk in second trimester; Anti-E isoimmunization affecting in second trimester, single or unspecified fetus Start: 03-12-2022 End: 03-12-2022 Patient encounter procedure No Primary Care Physician [facility] Start: 02-27-2022 Telephone encounter Nelda ignacio APRN.CNM Work Phone: OB/Gynecology Comment on above: Patient Question Start: 02-27-2022 End: 02-27-2022 Emergency department patient [facility] Start: 02-19-2022 Telephone encounter Stephani rowley MD Work Phone: Maternal Medicine Comment on above: First Seq Results Start: 02-18-2022 Telephone encounter Wendi Robb MD Work Phone: OB/Gynecology Comment on above: Patient Update Start: 02-17-2022 End: 02-17-2022 Patient encounter procedure Wendi Robb MD Work Phone: OB/Gynecology Comment on above: Screen for STD (sexu ally transmitted disease) (Primary Dx); 13 weeks gestation of ; Drug use disorder; Supervision of other high risk pregnancies, first trimester; Viral hepatitis complicating , second trimester; Encounter for screening of mother Encounter for (NT) n uchal translucency scan (Primary Dx); 13 weeks gestation of Start: 02-10-2022 Telephone encounter Auto Vinyl Top Installer RN Obstetrics/Gynecology Comment on above: PRAF FORM Start: 01-26-2022 End: 01-26-2022 Emergency department patient visit [facility] Start: 01-22-2022 Telephone encounter [...] (sexually transmitted disease) Start: 01-09-2022 Telephone encounter Wendi Robb MD Work Phone: OB/Gynecology Comment on above: Results Start: 01-02-2022 End: 01-02-2022 Patient encounter procedure Wendi Robb MD Work Phone: OB/Gynecology Comment on above: Encounter for superv ision of normal in multigravida in first trimester (Primary Dx); Encounter for screening for malignant neoplasm of cervix; Uncertain dates, antepartum, first trimester; Viral hepatitis complicating , first trimester; Supervision of other high risk pregnancies, first trimester; Hepatitis C virus carrier state (HCC); Drug use disorder Start: 01-01-2022 Telephone encounter Wendi Robb MD Work Phone: OB/Gynecology Comment on above: Missed Appointment Start: 12-23-2021 End: 12-23-2021 Emergency department patient visit [facility] Start: 12-23-2021 Telephone encounter Wendi Robb MD Work Phone: OB/Gynecology Comment on above: Future Appointment Start: 07-13-2017 Evaluation and management of inpatient UNKNOWN PROVIDER [facility] Start: 07-13-2017 End: 07-13-2017 Emergency department patient visit [facility] Facility:B Procedures Date Procedure Procedure Detail Performing Clinician Start: 03-07-2025 Urnls dip stick/tabl et rgnt non-auto w/o micrscp Wendi Robb MD Work Phone: Start: 03-01-2025 Urnls dip stick/tabl et rgnt non-auto w/o micrscp Wendi Robb MD Work Phone: Start: 02-14-2025 Urnls dip stick/tabl et rgnt non-auto w/o micrscp Lachelle Kramer MD Work Phone: Start: 02-14-2025 Us preg uterus after 1st trimest 1/1st gestation Wendi Robb MD Work Phone: Start: 01-17-2025 Us preg uterus after 1st trimest 1/1st gestation Wendi Robb MD Work Phone: Start: 12-20-2024 Us preg uterus after 1st trimest 1/1st gestation Wendi Robb MD Work Phone: Start: 12-06-2024 Us preg uterus after 1st trimest 1/1st gestation Wendi Robb MD Work Phone: Start: 11-29-2024 Antibody screen TERESO SHAIKH Comment on above: Order Comment: Speci men Type: BLOOD SPECIMEN Ordering Facility: [facility] Address: [address] [place] [address] Performed By: #### L [id number], [id number] #### [facility] CLIA [id number] [address] [place] [address] [place] #### ASCR, %JETHRO #### [facility] CLIA [id number] [place] Start: 11-22-2024 Us preg uterus after 1st trimest 1/ gestation Wendi Robb MD Work Phone: Start: 11-08-2024 Us preg uterus after 1st trimest 09/06 gestation Rylee Scott APRN.ELECTRICAL WIRER Work Phone: Start: 10-30-2024 Antibody screen TERESO SHAIKH Comment on above: Order Comment: Speci men Type: FLUID SPECIMEN Ordering Facility: [facility] Address: [address] [place] [address] Performed By: #### L [id number] #### [facility] CLIA [id number] [address] [place] [address] Start: 09-13-2024 Antibody screen TERESO SHAIKH Comment on above: Order Comment: Speci men Type: FLUID SPECIMEN Ordering Facility: [facility] Address: [address] [place] [address] Performed By: #### L [id number] #### [facility] CLIA [id number] [address] [place] [address] OF [place] Start: 09-13-2024 Us nuchal cooley slucency 1st gestation Rylee Scott APRN.ELECTRICAL WIRER Work Phone: Start: 08-02-2024 Us uterus l imited 1/> fetuses Rylee Scott APRN.ELECTRICAL WIRER Work Phone: Start: 10-14-2023 STREP A MOLECULAR (POC) Rodolfo Solis APRN.ELECTRICAL WIRER Work Phone: Start: 11-27-2022 Liver elastography w /o imag w/i&r Abimbola Kalka PA-C Work Phone: Start: 11-27-2022 Liver elastography w /o imag w/i&r Abimbola Kalka PA-C Work Phone: Start: 10-27-2022 Us abdominal real ti me w/image limited Abimbolaalan Valenzuela PA-C Work Phone: Start: 07-29-2022 URINE OB DIP B/O Ada Robb MD Work Phone: Start: 07-29-2022 biophysical pr ofile non-stress testing Wendi Robb MD Work Phone: Start: 07-21-2022 URINE OB DIP B/O Alfredo Benitez MD Work Phone: Start: 07-21-2022 biophysical pr ofile non-stress testing Wendi Robb MD Work Phone: Start: 07-14-2022 biophysical pr ofile non-stress testing Wendi Robb MD Work Phone: Start: 07-07-2022 URINE OB DIP B/O Ada Robb MD Work Phone: Start: 07-07-2022 Us preg uterus after 1st trimest 09/06 gestation Wendi Robb MD Work Phone: Start: 06-26-2022 Us preg uterus after 1st trimest 09/06 gestation Wendi Robb MD Work Phone: Start: 06-10-2022 URINE OB DIP B/O Ada Robb MD Work Phone: Start: 05-25-2022 URINE OB DIP B/O Ada Robb MD Work Phone: Start: 05-07-2022 Plain chest X-ray No Pr imary Care Physician Start: 04-24-2022 URINE OB DIP B/O Ada Robb MD Work Phone: Start: 03-31-2022 Us preg uterus after 1st trimest 09/06 gestation Wendi Robb MD Work Phone: Start: 03-17-2022 URINE OB DIP B/O Ada Robb MD Work Phone: Start: 02-17-2022 nuchal cooley slucency 1st gestation Wendi Robb MD Work Phone: Start: 01-20-2022 URINE OB DIP B/O Ada Robb MD Work Phone: Start: 12-23-2021 Transvaginal obstetr ic ultrasonography Plan of Treatment Date Care Activity Detail Author Start: 01-03-2035 Urine microalbumin profile DTaP,Tdap,Td Vaccine (4 - Td or Tdap) [facility] Start: 05-25-2032 Urine microalbumin profile [facility] Start: 05-03-2026 End: 05-03-2026 Patient encounter procedure 05/03/2026 2:20 PM EDT Office Visit OB/Gynecology [address] [place], [place] [id number] Wendi Robb MD [address] [place] [id number] Annual OB/Gynecology Comment on above: Annual Start: 09-13-2025 Covid-19 Vaccine ( season) Covid-19 Vaccine ( season) [facility] Comment on above: Postponed from 05/07 (Declined at this time) Start: 05-07-2025 Influenza vaccination [facility] Start: 05-02-2025 End: 05-02-2025 Patient encounter procedure 05/02/2025 10:40 AM EDT Office Visit OB/Gynecology [address] [place], [place] [id number] Wendi Robb MD [address] [place], [place] [id number] PP OB/Gynecology Comment on above: PP Start: 03-16-2025 End: 03-16-2025 Patient encounter procedure 03/16/2025 10:20 AM EDT Routine Office Visit OB/Gynecology [address] [place], [place] [id number] Alfredo Benitez MD [address] [place] [address] OB OB/Gynecology Comment on above: OB Start: 03-07-2025 End: 03-07-2025 Patient encounter procedure 03/07/2025 11:00 AM EDT Routine Office Visit OB/Gynecology [address] [place] [address] Wendi Robb MD [address] [place] [address] OB OB/Gynecology Comment on above: OB Start: 03-05-2025 Influenza vaccination Influenza Vacc ine (#1) [facility] Comment on above: Postponed from 05/07 (Declined at this time) Start: 02-28-2025 End: 02-28-2025 Patient encounter procedure 02/28/2025 10:40 AM EDT Routine Office Visit OB/Gynecology [address] [place] [address] Wendi Robb MD [address] [place] [address] OB OB/Gynecology Comment on above: OB Start: 02-14-2025 End: 02-14-2025 Patient encounter procedure Maternal Medicine Comment on above: Growth OB/ Growth Start: 01-31-2025 End: 01-31-2025 Patient encounter procedure 01/31/2025 11:20 AM EDT Routine Office Visit OB/Gynecology [address] [place] [address] Wendi Robb MD [address] [place] [address] OB OB/Gynecology Comment on above: OB Start: 01-17-2025 End: 01-17-2025 Patient encounter procedure Maternal Medicine Comment on above: Growth OB Growth/MCA dopplers Start: 01-03-2025 End: 01-03-2025 Patient encounter procedure Maternal Medicine Comment on above: Growth OB Growth/MCA dopplers Start: 01-03-2025 End: 01-03-2025 ambulatory 01/03/2025 1:15 PM EDT Results Only Laila Christian [facility] [address] [place] [address] Glucose test and LABS [place] [facility] Comment on above: Glucose test and LAB S Start: 01-02-2025 PAP TESTING PAP TESTING [facility] Start: 01-02-2025 Screening for malign ant neoplasm of cervix [facility] Start: 12-20-2024 End: 12-20-2024 ambulatory 12/20/2024 1:45 PM EDT Results Only Laila [facility] Draw Station [address] [place] [address] Laila [facility] Draw Station Start: 12-20-2024 End: 12-20-2024 Patient encounter procedure Maternal Medicine Comment on above: Growth OB Growth/MCA dopplers Start: 12-06-2024 End: 12-06-2024 ambulatory 12/06/2024 3:45 PM EDT [facility] Maternal Medicine [address] [facility] [address] [place] [address] [place] [address] [place], [place] [phone] Virtual est mfm Maternal Medicine Comment on above: Virtual est mfm Start: 12-06-2024 End: 03-07-2025 ANEMIA REFLEX PANEL ANEMIA REFLEX PANEL Lab Routine Supervision of high risk in second trimester Anti-E isoimmunization affecting in second trimester, single or unspecified fetus Tobacco smoking complicating in second trimester 24 weeks gestation of Expected: 12/06/2024, Expires: 03/07/2025 [facility] Comment on above: Expected: 12/06/2024 , Expires: 03/07/2025 Start: 12-06-2024 End: 12-06-2025 GESTATIONAL GLUCOSE SCREEN, 1-HOUR, 50 GRAM, NON-FASTING GESTATIONAL GLUCOSE SCREEN, 1-HOUR, 50 GRAM, NON-FASTING Lab Routine Supervision of high risk in second trimester Anti-E isoimmunization affecting in second trimester, single or unspecified fetus Tobacco smoking complicating in second trimester 24 weeks gestation of Expected: 12/06/2024, Expires: 12/06/2025 [facility] Work Phone: Comment on above: Expected: 12/06/2024 , Expires: 12/06/2025 Start: 12-06-2024 End: 12-06-2025 SYPHILIS TREPONEMAL W/REFLEX SYPHILIS TREPONEMAL W/REFLEX Lab Routine Supervision of high risk in second trimester Anti-E isoimmunization affecting in second trimester, single or unspecified fetus Tobacco smoking complicating in second trimester 24 weeks gestation of Expected: 12/06/2024, Expires: 12/06/2025 [facility] Comment on above: Expected: 12/06/2024 , Expires: 12/06/2025 Start: 12-06-2024 End: 12-06-2024 Patient encounter procedure Maternal Medicine Comment on above: Growth OB Growth/MCA dopplers Start: 11-29-2024 End: 11-29-2024 Patient encounter procedure 11/29/2024 12:00 PM EDT Office Visit [facility] [address] [address] Roxanne Cordoba [address] [place] [address] consult [facility] Comment on above: consult Start: 11-27-2024 End: 11-27-2024 ambulatory 11/27/2024 9:00 AM EDT [facility] [address] [place] [address] Roxanne Cordoba LGC [address] [place] [address] The antibody that s affecting my . [facility] RAYA Comment on above: The antibody [...] weeks gestation of Expected: 11/08/2024, Expires: 02/07/2025 [facility] Work Phone: Comment on above: Expected: 11/08/2024 , Expires: 02/07/2025 Start: 11-08-2024 End: 11-08-2024 Patient encounter procedure 11/08/2024 1:30 PM EST Routine Office Visit Maternal Medicine [address] [place], [place] [id number] Anatomy Scan Maternal Medicine Comment on above: Anatomy Scan Start: 10-11-2024 End: 01-10-2025 Antibody screen ANTIBODY SCREEN Blood Bank Routine 16 weeks gestation of Anti-E isoimmunization affecting in second trimester, single or unspecified fetus Expected: 10/11/2024, Expires: 01/10/2025 [facility] Work Phone: Comment on above: Expected: 10/11/2024 , Expires: 01/10/2025 Start: 10-11-2024 End: 10-11-2024 Patient encounter procedure 10/11/2024 10:30 AM EST Routine Office Visit OB/Gynecology [address] [place], [place] [phone] Lorena Sharma APRN.CN [address] [place] [place] [address] OB Routine OB/Gynecology Comment on above: OB Routine Start: 09-13-2024 End: 09-13-2024 Patient encounter procedure Maternal Medicine Comment on above: Nuchal OB Routine Start: 08-02-2024 End: 11-01-2024 ANEMIA REFLEX PANEL ANEMIA REFLEX PANEL Lab Routine Encounter for supervision of high risk in first trimester, antepartum Expected: 08/02/2024, Expires: 11/01/2024 [facility] Work Phone: Comment on above: Expected: 08/02/2024 , Expires: 11/01/2024 Start: 08-02-2024 End: 11-01-2024 Chromosome 21 trisomy [Presence] in Blood or Tissue by Cytogenetics [id number] PLUS Lab Routine Encounter for supervision of high risk in first trimester, antepartum 6 weeks gestation of Expected: 08/02/2024, Expires: 11/01/2024 [facility] Comment on above: Expected: 08/02/2024 , Expires: 11/01/2024 Start: 08-02-2024 End: 11-01-2024 Comprehensive metabolic 2000 panel - Serum or Plasma COMPREHENSIVE METABOLIC PANEL Lab Routine History of hepatitis C Expected: 08/02/2024, Expires: 11/01/2024 [facility] Comment on above: Expected: 08/02/2024 , Expires: 11/01/2024 Start: 08-02-2024 End: 11-01-2024 Hemoglobin A1c in Blood HEMOGLOBIN A1C Lab Routine Encounter for supervision of high risk in first trimester, antepartum Expected: 08/02/2024, Expires: 11/01/2024 [facility] Comment on above: Expected: 08/02/2024 , Expires: 11/01/2024 Start: 08-02-2024 End: 11-01-2024 Hepatitis B virus surface Ag [Presence] in Serum HEPATITIS B SURFACE ANTIGEN Lab Routine Encounter for supervision of high risk in first trimester, antepartum Expected: 08/02/2024, Expires: 11/01/2024 [facility] Comment on above: Expected: 08/02/2024 , Expires: 11/01/2024 Start: 08-02-2024 End: 11-01-2024 Hepatitis C virus Ab [Presence] in Serum HEPATITIS C ANTIBODY IA WITH CONFIRMATION Lab Routine Encounter for supervision of high risk in first trimester, antepartum Expected: 08/02/2024, Expires: 11/01/2024 [facility] Comment on above: Expected: 08/02/2024 , Expires: 11/01/2024 Start: 08-02-2024 End: 11-01-2024 HIV 1+2 Ab [Presence] in Serum or Plasma by Immunoassay HIV 1/2 COMBO WITH REFLEX TO DIFFERENTIATION Lab Routine Encounter for supervision of high risk in first trimester, antepartum Expected: 08/02/2024, Expires: 11/01/2024 [facility] Comment on above: Expected: 08/02/2024 , Expires: 11/01/2024 Start: 08-02-2024 End: 08-02-2025 NUCHAL TRANSLUCENCY WHI NUCHAL TRANSLUCENCY WHI Anc Imaging Routine Encounter for supervision of high risk in first trimester, antepartum Expected: 08/02/2024, Expires: 08/02/2025 [facility] Comment on above: Expected: 08/02/2024 , Expires: 08/02/2025 Start: 08-02-2024 End: 08-02-2025 OBSTETRIC ULTRASOUND WHI OBSTETRIC ULTRASOUND WHI Anc Imaging Routine Encounter for supervision of high risk in first trimester, antepartum Expected: 08/02/2024, Expires: 08/02/2025 [facility] Comment on above: Expected: 08/02/2024 , Expires: 08/02/2025 Start: 08-02-2024 End: 11-01-2024 RUBELLA IGG ANTIBODY RUBELLA IGG ANTIBODY Lab Routine Encounter for supervision of high risk in first trimester, antepartum Expected: 08/02/2024, Expires: 11/01/2024 [facility] Comment on above: Expected: 08/02/2024 , Expires: 11/01/2024 Start: 08-02-2024 End: 11-01-2024 SYPHILIS TREPONEMAL W/REFLEX SYPHILIS TREPONEMAL W/REFLEX Lab Routine Encounter for supervision of high risk in first trimester, antepartum Expected: 08/02/2024, Expires: 11/01/2024 [facility] Comment on above: Expected: 08/02/2024 , Expires: 11/01/2024 Start: 08-02-2024 End: 11-01-2024 TYPE + SCREEN TYPE + SCREEN Blood Bank Routine Encounter for supervision of high risk in first trimester, antepartum Expected: 08/02/2024, Expires: 11/01/2024 [facility] Comment on above: Expected: 08/02/2024 , Expires: 11/01/2024 Start: 08-02-2024 End: 08-02-2024 Patient encounter procedure 08/02/2024 11:00 AM EST Initial Office Visit OB/Gynecology [address] [place] [address] Rylee Scott, LENY.ELECTRICAL WIRER [address] [place] [address] + test care center - 4 weeks on 07/17- per patient OB/Gynecology Comment on above: + test pre gnancy care center - 4 weeks on 07/17- per patient Start: 05-07-2024 Covid-19 Vaccine () Covid-19 Vaccine () [facility] Start: 05-07-2024 Influenza vaccination Influenza Vacc ine (#1) [facility] Start: 04-26-2024 End: 04-26-2024 Patient encounter procedure 04/26/2024 6:20 PM EDT Office Visit Internal Medicine [facility] [address] [place] [address] Maria Guadalupe Rivers, DIRECTOR OF [employer] MARK[employer]ING.ELECTRICAL WIRER [address] [place] [address] Annual Physical Internal Medicine [place] Comment on above: Annual Physical Start: 02-17-2024 Covid-19 Vaccine (#1) Covid-19 Vacci ne (#1) [facility] Comment on above: Postponed from 10/03 (Declined at this time) Start: 02-17-2024 Hepatitis A Vaccine (1 of 2 - Risk 2-dose series) Hepatitis A Vaccine (1 of 2 - Risk 2-dose series) [facility] Comment on above: Postponed from 04/02 (Declined at this time) Start: 02-17-2024 Pneumococcal vaccination [facility] Comment on above: Postponed from 04/02 (Declined at this time) Start: 10-31-2023 Urine microalbumin profile DTAP,TDAP,TD (2 - Td or Tdap) [facility] Start: 05-07-2023 Covid-19 Vaccine () Covid-19 Vaccine () [facility] Start: 05-07-2023 Influenza vaccination [facility] Start: 09-06-2022 DEPRESSION ASSESSMENT DEPRESSION ASS ESSMENT [facility] Start: 08-07-2022 Patient discharge [facility] Work Phone: Start: 08-05-2022 Administration of medication [facility] Work Phone: Start: 08-05-2022 Application of ice collar, cap or bag [facility] Work Phone: Start: 08-05-2022 Catheterization of vein [facility] Work Phone: Start: 08-05-2022 Introduction of urin pamela catheter [facility] Work Phone: Start: 08-05-2022 Measuring intake and output [facility] Work Phone: Start: 08-05-2022 Notification of physician [facility] Work Phone: Start: 08-05-2022 Procedure discontinued [facility] Work Phone: Start: 08-05-2022 Provision of activit y privileges [facility] Work Phone: Start: 08-05-2022 Vital signs measurements [facility] Work Phone: Start: 08-05-2022 [facility] Work Phone: Start: 08-05-2022 Leukocyte reduced re d blood cells [facility] Work Phone: Start: 08-05-2022 [facility] Work Phone: Start: 08-05-2022 Admission procedure [facility] Work Phone: Start: 08-05-2022 Verification routine [facility] Work Phone: Start: 08-05-2022 Consultation [facility] Work Phone: Start: 07-27-2022 PAP TESTING PAP TESTING [facility] Start: 06-27-2022 Nonstress test [facility] Work Phone: Start: 06-27-2022 Obstetric monitoring [facility] Work Phone: Start: 06-27-2022 Vital signs measurements [facility] Work Phone: Start: 06-27-2022 [facility] Work Phone: Start: 06-27-2022 Patient discharge [facility] Work Phone: Start: 06-26-2022 End: 08-26-2022 ANTIBODY TITER ANTIBODY TITER Blood Bank Routine 31 weeks gestation of High-risk in third trimester Anti-E isoimmunization affecting in second trimester, single or unspecified fetus Chronic hepatitis C without hepatic coma (HCC) Expected: 06/26/2022, Expires: 08/26/2022 [facility] Work Phone: Comment on above: Expected: 06/26/2022 , Expires: 08/26/2022 Start: 06-26-2022 End: 08-26-2022 Hepatic function 2000 panel - Serum or Plasma HEPATIC FUNCTION PNL Lab Routine 31 weeks gestation of High-risk in third trimester Anti-E isoimmunization affecting in second trimester, single or unspecified fetus Chronic hepatitis C without hepatic coma (HCC) Expected: 06/26/2022, Expires: 08/26/2022 [facility] Work Phone: Comment on above: Expected: 06/26/2022 , Expires: 08/26/2022 Start: 06-26-2022 End: 06-26-2023 OBSTETRIC ULTRASOUND [facility] Work Phone: Comment on above: Expected: 06/26/2022 , Expires: 06/25/2023 Expected: 06/26/2022 , Expires: 06/26/2023 Start: 05-25-2022 End: 07-25-2022 HIV 1+2 Ab [Presence] in Serum or Plasma by Immunoassay [facility] Work Phone: Comment on above: Expected: 05/25/2022 , Expires: 07/25/2022 Start: 05-07-2022 Influenza vaccination C [facility] Start: 04-24-2022 End: 06-24-2022 CBC W Auto Differential panel - Blood CBC + DIFF Lab Routine High-risk in second trimester 22 weeks gestation of Expected: 04/24/2022, Expires: 06/24/2022 [facility] Work Phone: Comment on above: Expected: 04/24/2022 , Expires: 06/24/2022 Start: 04-24-2022 End: 06-24-2022 GEST GLUC SCREEN, 1-HR, 50 GM, NON-FASTING GEST GLUC SCREEN, 1-HR, 50 GM, NON-FASTING Lab Routine High-risk in second trimester 22 weeks gestation of Expected: 04/24/2022, Expires: 06/24/2022 [facility] Work Phone: Comment on above: Expected: 04/24/2022 , Expires: 06/24/2022 Start: 04-24-2022 End: 06-24-2022 SYPHILIS TOTAL W/REFLEX SYPHILIS TOTAL W/REFLEX Lab Routine High-risk in second trimester 22 weeks gestation of Expected: 04/24/2022, Expires: 06/24/2022 [facility] Work Phone: Comment on above: Expected: 04/24/2022 , Expires: 06/24/2022 Start: 2022 HPV Vaccine (1 - 3-d ose SCDM series) HPV Vaccine (1 - 3-dose SCDM series) [facility] Start: 03-03-2022 End: 04-28-2022 SEQUENTIAL SCRN SCND TRIMESTER SEQUENTIAL SCRN SCND TRIMESTER Lab Routine 13 weeks gestation of Supervision of other high risk pregnancies, first trimester Encounter for screening of mother Expected: 03/03/2022 (Approximate), Expires: 04/28/2022 [facility] Work Phone: Comment on above: Expected: 03/03/2022 (Approximate), Expires: 04/28/2022 Start: 02-17-2022 End: 04-19-2022 SEQUENTIAL SCRN FRST TRIMESTER [facility] Work Phone: Comment on above: Expected: 02/17/2022 , Expires: 04/19/2022 Start: 01-20-2022 End: 03-22-2022 HSV 1,2 ANTIBODIES IGG+IGM HSV 1,2 ANTIBODIES IGG+IGM Lab Routine Screen for STD (sexually transmitted disease) Expected: 01/20/2022, Expires: 03/22/2022 [facility] Work Phone: Comment on above: Expected: 01/20/2022 , Expires: 03/22/2022 Start: 01-02-2022 End: 03-04-2022 CBC panel - Blood by Automated count CBC Lab Routine Encounter for supervision of normal in multigravida in first trimester Expected: 01/02/2022, Expires: 03/04/2022 [facility] Work Phone: Comment on above: Expected: 01/02/2022 , Expires: 03/04/2022 Start: 01-02-2022 End: 03-04-2022 Hepatitis B virus surface Ab [Presence] in Serum by Immunoassay HEP B SURF AG SCRN Lab Routine Encounter for supervision of normal in multigravida in first trimester Expected: 01/02/2022, Expires: 03/04/2022 [facility] Work Phone: Comment on above: Expected: 01/02/2022 , Expires: 03/04/2022 Start: 01-02-2022 End: 03-04-2022 Hepatitis C virus RNA [Units/volume] (viral load) in Serum or Plasma by YELENA with probe detection HCV QUANT RNA BY PCR Lab Routine Encounter for supervision of normal in multigravida in first trimester Viral hepatitis complicating , first trimester Expected: 01/02/2022, Expires: 03/04/2022 [facility] Work Phone: Comment on above: Expected: 01/02/2022 , Expires: 03/04/2022 Start: 01-02-2022 End: 03-04-2022 HIV 1+2 Ab [Presence] in Serum or Plasma by Immunoassay HIV 1 2 COMBO(AG/AB),WITH REFLEX TO DIFFERENTIATION Lab Routine Encounter for supervision of normal in multigravida in first trimester Expected: 01/02/2022, Expires: 03/04/2022 [facility] Work Phone: Comment on above: Expected: 01/02/2022 , Expires: 03/04/2022 Start: 01-02-2022 End: 03-04-2022 RUBELLA IGG AB RUBELLA IGG AB Lab Routine Encounter for supervision of normal in multigravida in first trimester Expected: 01/02/2022, Expires: 03/04/2022 [facility] Work Phone: Comment on above: Expected: 01/02/2022 , Expires: 03/04/2022 Start: 01-02-2022 End: 03-04-2022 SYPHILIS TOTAL W/REFLEX SYPHILIS TOTAL W/REFLEX Lab Routine Encounter for supervision of normal in multigravida in first trimester Expected: 01/02/2022, Expires: 03/04/2022 [facility] Work Phone: Comment on above: Expected: 01/02/2022 , Expires: 03/04/2022 Start: 01-02-2022 End: 03-04-2022 TYPE + SCREEN TYPE + SCREEN Blood Bank Routine Encounter for supervision of normal in multigravida in first trimester Expected: 01/02/2022, Expires: 03/04/2022 [facility] Work Phone: Comment on above: Expected: 01/02/2022 , Expires: 03/04/2022 Start: 09-06-2021 DEPRESSION ASSESSMENT DEPRESSION ASS ESSMENT [facility] Start: 2014 Hepatitis A Vaccine (1 of 2 - Risk 2-dose series) Hepatitis A Vaccine (1 of 2 - Risk 2-dose series) [facility] Start: 2014 Pneumococcal vaccination Pneum ococcal Vaccine (1 of 2 - PCV) [facility] Start: 2014 Urine microalbumin profile DTAP,TDAP,TD (1 - Tdap) [facility] Start: 2009 PEDS TO ADULT TRANSI TION ANNUAL ASSESSMENT PEDS TO ADULT TRANSITION ANNUAL ASSESSMENT [facility] Start: 2007 Adult depression screening assessment DEPRESSION SCREENING [facility] Start: 2007 PEDS TO ADULT TRANSI TION INITIAL DISCUSSION PEDS TO ADULT TRANSITION INITIAL DISCUSSION [facility] Start: 2006 HPV VACCINE (1 - 2-d ose series) HPV VACCINE (1 - 2-dose series) [facility] Start: 2001 PNEUMOCOCCAL (1 - PCV) PNEUMOCOCCAL (1 - PCV) [facility] Start: 2001 Pneumococcal vaccination Pneum ococcal Vaccine (1 of 2 - PCV) [facility] Start: 2000 COVID-19 VACCINE (#1) COVID-19 VACCI NE (#1) [facility] Start: 2000 COVID-19 VACCINE (1) COVID-19 VACCIN E (1) [facility] Start: 1996 HEPATITIS A (1 of 2 - Risk 2-dose series) HEPATITIS A (1 of 2 - Risk 2-dose series) [facility] Start: 1995 COVID-19 VACCINE (#1) COVID-19 VACCI NE (#1) [facility] Start: 1995 HEPATITIS B (1 of 3 - 3-dose series) HEPATITIS B (1 of 3 - 3-dose series) [facility] End: 03-17-2023 Antibody screen ANTIBODY SCREEN Blood Bank Routine High-risk in second trimester Anti-E isoimmunization affecting in second trimester, single or unspecified fetus Once per month for 6 Occurrences starting 03/17/2022 until 03/17/2023 [facility] Work Phone: Comment on above: Once per month for 6 Occurrences starting 03/17/2022 until 03/17/2023 Antibody screen ANTIBODY SCREEN Blood Bank Routine High-risk in second trimester Anti-E isoimmunization affecting in second trimester, single or unspecified fetus 03/17/2022 11:07 AM EDT [facility] Work Phone: Bacteria identified in Urine by Culture URINE CULTURE Microbiology Routine Encounter for supervision of normal in multigravida in first trimester Ordered: 01/02/2022 [facility] Work Phone: Comment on above: Ordered: 01/02/2022 Bacteria identified in Urine by Culture URINE CULTURE Microbiology Routine Encounter for supervision of high risk in first trimester, antepartum 08/02/2024 11:33 AM [facility] BACTERIAL VAGINOSIS NAAT BACTERI AL VAGINOSIS NAAT Lab Routine Supervision of high risk due to social problems, third trimester ([facility]) 38 weeks gestation of ([facility]) Vaginal discharge during in third trimester (HCC) History of herpes genitalis Ordered: 03/13/2025 [facility] Comment on above: Ordered: 03/13/2025 MYRA/TRICHOMONAS NAAT MYRA /TRICHOMONAS NAAT Lab Routine Supervision of high risk due to social problems, third trimester ([facility]) 38 weeks gestation of ([facility]) Vaginal discharge during in third trimester ([facility]) History of herpes genitalis Ordered: 03/13/2025 [facility] Comment on above: Ordered: 03/13/2025 Chlamydia trachomatis+Neisseria gonorrhoeae DNA [Presence] in Unspecified specimen by YELENA with probe detection GC/CHLAMYDIA DNA DET Lab Routine Encounter for supervision of normal in multigravida in first trimester 01/02/2022 11:25 AM [facility] Work Phone: Chlamydia trachomatis+Neisseria gonorrhoeae DNA [Presence] in Unspecified specimen by YELENA with probe detection GONORRHEA/CHLAMYDIA NAAT Lab Routine Encounter for supervision of high risk in first trimester, antepartum 08/02/2024 11:33 AM [facility] Chlamydia trachomatis+Neisseria gonorrhoeae DNA [Presence] in Unspecified specimen by YELENA with probe detection GONORRHEA/CHLAMYDIA NAAT Lab Routine Supervision of high risk due to social problems, third trimester ([facility]) 36 weeks gestation of ([facility]) 03/01/2025 11:25 AM [facility] COVID & INFLUENZA A/ B & RSV PCR, ROUTINE COVID & INFLUENZA A/B & RSV PCR, ROUTINE Microbiology Routine Acute cough 07/05/2024 11:24 AM [facility] Work Phone: End: 11-22-2025 ECG COMPLETE ECG COMPLETE ECG Routine Hx of intravenous drug use, in remission 1 Occurrences starting 11/22/2024 until 11/22/2025 [facility] Work Phone: Comment on above: 1 Occurrences starti ng 11/22/2024 until 11/22/2025 NEXPLANON REMOVAL NEXPLANON LAISHA LUISANA Procedures Routine Nexplanon insertion Ordered: 01/08/2023 [facility] Work Phone: Comment on above: Ordered: 01/08/2023 NUCHAL TRANSLUCENCY WHI NUCHAL T RANSLUCENCY WHI Anc Imaging Routine Encounter for supervision of normal in multigravida in first trimester Ordered: 01/20/2022 [facility] Work Phone: Comment on above: Ordered: 01/20/2022 OBSTETRIC ULTRASOUND WHI OBSTETR IC ULTRASOUND WHI Anc Imaging Routine Uncertain dates, antepartum, first trimester Ordered: 01/02/2022 [facility] Work Phone: Comment on above: Ordered: 01/02/2022 OBSTETRIC ULTRASOUND WHI OBSTETR IC ULTRASOUND WHI Anc Imaging Routine Supervision of other high risk pregnancies, first trimester Encounter for screening of mother Ordered: 02/17/2022 [facility] Work Phone: Comment on above: Ordered: 02/17/2022 End: 01-31-2025 OBSTETRIC ULTRASOUND WHI OBSTETRIC ULTRASOUND WHI Anc Imaging Routine Maternal care for isoimmunization, second trimester, single gestation Once per week for 10 Occurrences starting 11/22/2024 until 01/31/2025 [facility] Comment on above: Once per week for 10 Occurrences starting 11/22/2024 until 01/31/2025 End: 05-06-2025 OBSTETRIC ULTRASOUND WHI OBSTETRIC ULTRASOUND WHI Anc Imaging Routine Maternal care for isoimmunization, second trimester, single gestation Supervision of high risk in second trimester Every other week for 10 Occurrences starting 11/07/2024 until 05/06/2025, 3 completed [facility] Work Phone: Comment on above: Every other week for 10 Occurrences starting 11/07/2024 until 05/06/2025, 3 completed PAP FLUID CERVICAL SCREENING PAP FLUID CERVICAL SCREENING Lab Routine Encounter for screening for malignant neoplasm of cervix 01/02/2022 1:52 PM EDT [facility] Work Phone: PAP TEST PAP TEST Lab [facility] jarrett care and examination (HCC) Screening for malignant neoplasm of cervix Special screening examination for human papillomavirus (HPV) 05/02/2025 11:49 AM EDT [facility] Work Phone: Patient Education [facility] Work Phone: Patient referral [facility] Work Phone: ROUTINE, GR OUP B STREPTOCOCCUS BY PCR ROUTINE, GROUP B STREPTOCOCCUS BY PCR Microbiology Routine Supervision of high risk due to social problems, third trimester (HCC) 36 weeks gestation of ([facility]) 03/01/2025 11:25 AM EDT [facility] Work Phone: T VAGINALIS AMPLIFICATION T VAGI NALIS AMPLIFICATION Lab Routine Encounter for screening for malignant neoplasm of cervix Ordered: 01/02/2022 [facility] Work Phone: Comment on above: Ordered: 01/02/2022 T VAGINALIS AMPLIFICATION T VAGI NALIS AMPLIFICATION Lab Routine Encounter for supervision of normal in multigravida in first trimester Uncertain dates, antepartum, first trimester Gonorrhea affecting in first trimester 01/20/2022 2:12 PM EDT [facility] Work Phone: TOX SCREEN ROUT UR TOX SCREEN RO UT UR Lab Routine 13 weeks gestation of Drug use disorder 02/17/2022 11:40 AM [facility] Work Phone: TRICHOMONAS VAGINALI S NAAT TRICHOMONAS VAGINALIS NAAT Lab Routine History of trichomoniasis 08/02/2024 11:33 AM [facility] TRICHOMONAS VAGINALI S NAAT TRICHOMONAS VAGINALIS NAAT Lab Routine Supervision of high risk due to social problems, third trimester (HCC) 36 weeks gestation of (HCC) 03/01/2025 11:25 AM [facility] URINE OB DIP B/O URINE OB DIP B/ O Lab Routine Screen for STD (sexually transmitted disease) 13 weeks gestation of Ordered: 02/17/2022 [facility] Work Phone: Comment on above: Ordered: 02/17/2022 URINE OB DIP B/O URINE OB DIP B/ O Lab Routine 31 weeks gestation of High-risk in third trimester 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, single or unspecified fetus Ordered: 06/26/2022 [facility] Work Phone: Comment on above: Ordered: 06/26/2022 URINE OB DIP B/O URINE OB DIP B/ O Lab Routine Supervision of high risk due to social problems, third trimester (HCC) 32 weeks gestation of (HCC) 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, single or unspecified fetus (HCC) Ordered: 01/31/2025 [facility] Work Phone: Comment on above: Ordered: 01/31/2025 URINE OB DIP B/O URINE OB DIP B/ O Lab Routine Supervision of high risk due to social problems, third trimester (HCC) 38 weeks gestation of (HCC) Ordered: 03/13/2025 [facility] Work Phone: Comment on above: Ordered: 03/13/2025 End: 07-10-2023 US MATERNAL LVL2 US MATERNAL LVL2 Radiology Routine 29 weeks gestation of Supervision of high risk in third trimester 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, single or unspecified fetus 1 Occurrences starting 06/10/2022 until 07/10/2023 [facility] Work Phone: Comment on above: 1 Occurrences starti ng 06/10/2022 until 07/10/2023 [facility] Immunizations Immunization Date Immunization Notes Care Provider [facility] 01-03-2025 tetanus toxoid, redu denver diphtheria toxoid, and acellular pertussis vaccine, adsorbed Emily Boss MD Work Phone: [facility] 05-25-2022 tetanus toxoid, redu denver diphtheria toxoid, and acellular pertussis vaccine, adsorbed Wendi Robb MD Work Phone: [facility] 10-31-2013 tetanus toxoid, redu denver diphtheria toxoid, and acellular pertussis vaccine, adsorbed [facility] Work Phone: 05-27-2012 influenza virus vaccine, live, attenuated, for intranasal use Wendi Robb MD Work Phone: [facility] Work Phone: 05-27-2012 influenza virus vaccine, unspecified formulation [facility] Work Phone: [facility] Payers Date Payer Category Payer Medicaid [id number] 2021 Medicaid [employer] [id number] 2021-Present [phone] [address] [place] [address] Medicaid [id number] 2021 Medicaid [id number] 2017 Self-pay Unknown [id number] Unknown [id number] Unknown [id number] Social History Date Type Detail Facility Start: 04-29-2016 End: 07-27-2024 Tobacco smoking status NVIS Smokes tobacco daily [facility] History of tobacco use [facility] Start: 04-29-2016 End: 02-10-2023 Cigarettes smoked current (pack per day) - Reported 0.5 [facility] Work Phone: Start: 04-29-2016 End: 07-27-2024 Tobacco use and exposure Smokeless tobacco non-user [facility] Start: 07-27-2019 End: 03-01-2025 Alcohol intake Current non-drinker of alcohol (finding) [facility] Start: 1995 Sex Assigned At Not on file C [facility] Start: 12-09-2021 End: 07-21-2022 Exposure to SARS-CoV-2 (event) Not sure [facility] Start: 12-23-2021 End: 08-06-2022 Tobacco smoking status NHIS Unknown if ever smoked [facility] Work Phone: Start: 02-02-2015 None [facility] Work [facility]: Start: 02-02-2015 Cigarettes [facility] Work Phone: Start: 1995 Sex Assigned At Female W [facility] Work Phone: Start: 11-30-2021 [facility] Start: 09-09-2022 End: 07-05-2024 Tobacco smoking status NHIS Ex-smoker [facility] History of tobacco use Current smoker [facility] Start: 10-14-2022 End: 02-10-2023 Tobacco use panel [facility] Work Phone: Start: 08-07-2012 National Score (1-10 0), lower number is lower risk 92 [facility] Work Phone: The thought of altagracia diaz myself has occurred to me Never [facility] Start: 07-27-2024 Education 14 [facility] Goals Date Patient Goal Desired Activity /State Personal health goal Functional Status Date Assessment Result Facility 04-23-2016 Are you deaf, or do you have serious difficulty hearing No 04/23/2016 11:00 AM Vangie Quintero RN No [facility] 04-23-2016 Are you blind, or do you have serious difficulty seeing, even when wearing glasses No 04/23/2016 11:00 AM Vangie Quintero RN No [facility] 04-23-2016 Do you have serious difficulty walking or climbing stairs No 04/23/2016 11:00 AM Vangie Quintero RN No [facility] 04-23-2016 Do you have difficul ty dressing or bathing No 04/23/2016 11:00 AM Vangie Quintero RN No [facility] 04-23-2016 Because of a physica l, mental, or emotional condition, do you have difficulty doing errands alone such as visiting a physician's office or shopping No 04/23/2016 11:00 AM EDT Vangie Castro, ZEINA No [facility] Mental Status Date Assessment Result Facility 04-23-2016 Because of a physica l, mental, or emotional condition, do you have serious difficulty concentrating, remembering, or making decisions No 04/23/2016 11:00 AM EDT Vangie Castro RN No [facility] Clinical Notes 01-14-2016 to 05-02-2025 Wendi Robb MD - 05/02/2025 11:54 AM Wendi Vinson MD - 05/02/2025 11:54 AM Wendi Vinson MD - 05/02/2025 10:41 AM Bernardo Lee MD - 04/04/2025 9:12 AM EDT Note Date & Type Note Facility 05-02-2025 History and physical note Pre-Op History and Physical HPI: The patient is a 30 year old female presenting for pre-operative visit. She is scheduled for tubal sterilization, for sterilization on 05/11/25. Procedure discussed along with risks, benefits and complications. Other alternatives discussed for management. Consent form signed? Yes. 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 02/2020 1:4 titer, repeat 4 weeks. Patient reports FOB in halfway so cannot test him. Wendi Robb MD 03/31/16: titer is 4. Repeat titer in 4 wks. 01/09/16 - titer is 8, needs repeat titer 4 weeks, consider FOB testing - KJ February 10, 2016 Follow titers q 4 weeks, needs growth scan q [address] Hearn US report from 02/05. 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 Wendi Robb MD PAST SURGICAL HISTORY Procedure Laterality Date COLPOSCOPY 2017 while incarcerated FINGER SURGERY HX d/t MRSA Current Outpatient Medications Medication Sig Dispense Refill ibuprofen (MOTRIN) 600 mg tablet 600 mg orally every 6 hours as needed As Needed for Pain Score 1-10 sertraline (ZOLOFT) 25 mg tablet Take 1 tablet by mouth once daily. 30 tablet 11 valACYclovir (VALTREX) 1 gram tablet Take 1 tablet by mouth once daily. TAKE ONE(1) TABLET DAILY FOR 3 DAYS . 30 tablet 1 albuterol HFA (PROVENTIL HFA, VENTOLIN HFA) 90 mcg/actuation inhaler Inhale 2 Puffs as instructed every 4 hours as needed for wheezing/shortness of breath. 1 Each 0 Vitamin w/ Iron (PNV NO. 72, W/ IRON,) 27 mg iron- 1 mg Take 1 tablet by mouth once daily. 30 tablet 11 No current facility-administered medications for this visit. ALLERGIES: Latex and Shellfish Derived PERSONAL HISTORY: SOCIAL HISTORY[1] FAMILY HISTORY: FAMILY HISTORY Problem Relation Age of Onset [...] Paternal Aunt Colon Cancer No Family History REVIEW OF SYMPTOMS: GENERAL: denies fevers or chills ENDOCRINOLOGY: has not been on steroids Cardiology : denies palpitations or chest pain Respiratory: denies SOB or cough Hematology: denies history of prolonged bleeding or easy bruising or VTE Allergy: Denies history of personal or family history of allergy to anesthesia PHYSICAL EXAMINATION: VITALS: Blood pressure 118/74, weight 86.6 kg (191 lb), last menstrual period 04/25/2025, not currently . GENERAL: The patient is well nourished, well hydrated in no acute distress. , The patient is oriented to time, place, and person. NECK: Supple. No lynphadenopathy, normal thyroid, no thyromegaly. LUNGS: Clear to auscultation bilaterally. no wheezes, rhonchi or rales HEART: Regular rate and rhythm, Normal heart sounds, and No murmurs or gallops IMPRESSION: sterilization request PLAN: The risks/benefits/alternatives and personal involved for the planned laparoscopic bilateral salpingectomy- tubal sterilization were reviewed with the patient. Her questions were answered to her satisfaction and she desires to proceed. Consent was signed. I reviewed with her postop instructions and expectations. I have reviewed and updated past medical and surgical history, medications and allergies Wendi Robb M.D. [1] Social History Tobacco Use Smoking status: Every Day Current packs/day: 0.50 Types: Cigarettes Smokeless tobacco: Never Vaping Use Vaping status: Former Start date: 06/14/2024 Substances: Nicotine Substance Use Topics Alcohol use: No Drug use: Yes Types: Marijuana, Amphetamines, Crystal Meth Comment: None since12/2021, currently marjiuana use. [facility] 05-02-2025 History and physical note Pre-Op History and Physical HPI: The patient is a 30 year old female presenting for pre-operative visit. She is scheduled for tubal sterilization, for sterilization on 05/11/25. Procedure discussed along with risks, benefits and complications. Other alternatives discussed for management. Consent form signed? Yes. 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 02/2020 1:4 titer, repeat 4 weeks. Patient reports FOB in halfway so cannot test him. Wendi Robb MD 03/31/16: titer is 4. Repeat titer in 4 wks. 01/09/16 - titer is 8, needs repeat titer 4 weeks, consider FOB testing - February 10, 2016 Follow titers q 4 weeks, needs growth scan q [address] Hearn US report from 02/05. 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 Wendi Robb MD PAST SURGICAL HISTORY Procedure Laterality Date COLPOSCOPY 2018 while incarcerated FINGER SURGERY HX d/t MRSA Current Outpatient Medications Medication Sig Dispense Refill ibuprofen (MOTRIN) 600 mg tablet 600 mg orally every 6 hours as needed As Needed for Pain Score 1-10 sertraline (ZOLOFT) 25 mg tablet Take 1 tablet by mouth once daily. 30 tablet 11 valACYclovir (VALTREX) 1 gram tablet Take 1 tablet by mouth once daily. TAKE ONE(1) TABLET DAILY FOR 3 DAYS . 30 tablet 1 albuterol HFA (PROVENTIL HFA, VENTOLIN HFA) 90 mcg/actuation inhaler Inhale 2 Puffs as instructed every 4 hours as needed for wheezing/shortness of breath. 1 Each 0 Vitamin w/ Iron (PNV NO. 72, W/ IRON,) 27 mg iron- 1 mg Take 1 tablet by mouth once daily. 30 tablet 11 No current facility-administered medications for this visit. ALLERGIES: Latex and Shellfish Derived PERSONAL HISTORY: SOCIAL HISTORY[1] FAMILY HISTORY: FAMILY HISTORY Problem Relation Age of Onset [...] Paternal Aunt Colon Cancer No Family History REVIEW OF SYMPTOMS: GENERAL: denies fevers or chills ENDOCRINOLOGY: has not been on steroids Cardiology : denies palpitations or chest pain Respiratory: denies SOB or cough Hematology: denies history of prolonged bleeding or easy bruising or VTE Allergy: Denies history of personal or family history of allergy to anesthesia PHYSICAL EXAMINATION: VITALS: Blood pressure 118/74, weight 86.6 kg (191 lb), last menstrual period 04/25/2025, not currently . GENERAL: The patient is well nourished, well hydrated in no acute distress. , The patient is oriented to time, place, and person. NECK: Supple. No lynphadenopathy, normal thyroid, no thyromegaly. LUNGS: Clear to auscultation bilaterally. no wheezes, rhonchi or rales HEART: Regular rate and rhythm, Normal heart sounds, and No murmurs or gallops IMPRESSION: sterilization request PLAN: The risks/benefits/alternatives and personal involved for the planned laparoscopic bilateral salpingectomy- tubal sterilization were reviewed with the patient. Her questions were answered to her satisfaction and she desires to proceed. Consent was signed. I reviewed with her postop instructions and expectations. I have reviewed and updated past medical and surgical history, medications and allergies Wendi Robb M.D. [1] Social History Tobacco Use Smoking status: Every Day Current packs/day: 0.50 Types: Cigarettes Smokeless tobacco: Never Vaping Use Vaping status: Former Start date: 06/14/2024 Substances: Nicotine Substance Use Topics Alcohol use: No Drug use: Yes Types: Marijuana, Amphetamines, Crystal Meth Comment: None since12/2021, currently marjiuana use. documented in this encounter [facility] 05-02-2025 Note HNO ID: [id number] Author: WENDI ROBB MD Service: ? Author Type: Physician Type: Progress Notes Filed: 05/02/2025 11:08 Note Text: VISIT Calin Graf is a 30 year old year old here for visit. Delivery Summary: vaginal ROS/ Recovery: Feeding: Bottle feeding problems: n/a Menses since delivery: had menses since delivery- was a little heavier then normal Menstrual pattern prior to : Irregular periods [place] since delivery: Not resumed Depression: denies symptoms of depression. OB Depression and Anxiety Screening- This Encounter Feeling down, depressed, or hopeless: Not at all Little interest or pleasure in doing things: Not at all Feeling nervous, anxious, or on edge Not at all Not being able to stop or control worrying Nearly Everyday Anxiety Pre-Screening Total (If >/= 3 additional questions will be reviewed) 3 Worrying too much about different things Nearly Everyday Trouble relaxing Not at all Being so restless that it is hard to sit still Not at all Becoming easily annoyed or irritable Not at all Feeling afraid, as if something awful might happen Nearly Everyday HERNANDEZ-7 Score 9 Emotional support: Yes Bowel symptoms: No nausea, vomiting, or diarrhea, No heartburn or reflux symptoms, and Negative for abdominal discomfort, blood in stools or black stools Abdomen: N/A Bladder symptoms: No dysuria, gross hematuria, urinary frequency, urinary urgency, or incontinence Other issues: None Last Pap: 2021 normal HPV: N/A PAST MEDICAL HISTORY Diagnosis Date Abnormal Pap smear of cervix Amphetamine abuse (HCC) Anemia 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 02/2020 1:4 titer, repeat 4 weeks. Patient reports FOB in halfway so cannot test him. Wendi Robb MD 03/31/16: titer is 4. Repeat titer in 4 wks. 01/09/16 - titer is 8, needs repeat titer 4 weeks, consider FOB testing - February 10, 2016 Follow titers q 4 weeks, needs growth scan q [address] Hearn US report from 02/05. Wendi Robb MD Antibody E isoimmunization affecting in [...] KJ April 29, 2016 Still positive, retreat. Wendi Robb MD PAST SURGICAL HISTORY Procedure Laterality [...] Meth Comment: None since12/2021, currently marjiuana use. PHYSICAL EXAMINATION: SENSITIVE EXAM: The sensitive examination was discussed with the Patient or Patient's Authorized Parts Representative. As applicable, any other physician, advance practice provider, medical student, or other health professional student that will be observing or involved in the sensitive examination for educational or training purposes was discussed with the Patient or Authorized Parts Representative. The Patient or Authorized Parts Representative has agreed to proceed with the sensitive examination. (Sensitive examination includes inspection and/or palpation of the breasts, pelvis, prostate and anorectal regions). LMP 06/18/2024 (more content not included)... [facility] 05-02-2025 History of Presen t illness Narrative VISIT Calin Graf is a 30 year old year old here for visit. Delivery Summary: vaginal ROS/ Recovery: Feeding: Bottle feeding problems: n/a Menses since delivery: had menses since delivery- was a little heavier then normal Menstrual pattern prior to : Irregular periods [place] since delivery: Not resumed Depression: denies symptoms of depression. OB Depression and Anxiety Screening- This Encounter Feeling down, depressed, or hopeless: Not at all Little interest or pleasure in doing things: Not at all Feeling nervous, anxious, or on edge Not at all Not being able to stop or control worrying Nearly Everyday Anxiety Pre-Screening Total (If >/= 3 additional questions will be reviewed) 3 Worrying too much about different things Nearly Everyday Trouble relaxing Not at all Being so restless that it is hard to sit still Not at all Becoming easily annoyed or irritable Not at all Feeling afraid, as if something awful might happen Nearly Everyday HERNANDEZ-7 Score 9 Emotional support: Yes Bowel symptoms: No nausea, vomiting, or diarrhea, No heartburn or reflux symptoms, and Negative for abdominal discomfort, blood in stools or black stools Abdomen: N/A Bladder symptoms: No dysuria, gross hematuria, urinary frequency, urinary urgency, or incontinence Other issues: None Last Pap: 2021 normal HPV: N/A PAST MEDICAL HISTORY Diagnosis Date Abnormal Pap smear of cervix Amphetamine abuse ([facility]) Anemia 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 02/2020 1:4 titer, repeat 4 weeks. Patient reports FOB in halfway so cannot test him. Wendi Robb MD 03/31/16: titer is 4. Repeat titer in 4 wks. 01/09/16 - titer is 8, needs repeat titer 4 weeks, consider FOB testing - February 10, 2016 Follow titers q 4 weeks, needs growth scan q [address] Hearn US report from 02/05. 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 Wendi Robb MD PAST SURGICAL HISTORY Procedure Laterality [...] Meth Comment: None since12/2021, currently marjiuana use. PHYSICAL EXAMINATION: SENSITIVE EXAM: The sensitive examination was discussed with the Patient or Patient's Authorized Parts Representative. As applicable, any other physician, advance practice provider, medical student, or other health professional student that will be observing or involved in the sensitive examination for educational or training purposes was discussed with the Patient or Authorized Parts Representative. The Patient or Authorized Parts Representative has agreed to proceed with the sensitive examination. (Sensitive examination includes inspection and/or palpation of the breasts, pelvis, prostate and anorectal regions). LMP 06/18/2024 GENERAL: pleasant, female in no apparent distress [...] external genitalia normal, normal Bartholin's glands, urethra, [place]'s glands, no vulvar lesions, no cervical lesions, good vaginal support, physiologic discharge present, normal appearing perineal body and perianal region BIMANUAL: uterus normal size, shape and consistency, no adnexal masses, and non-tender NEURO: alert and oriented x3,exam grossly non-focal EXTREMITIES: normal ASSESSMENT AND PLAN: 30 year old status post with normal course. Contraception plan: tubal ligation Follow up: RTC for annual exams and PRN Wendi Robb MD documented in this encounter [facility] 04-05-2025 Telephone encounter Note PRAF submitted 04/05/25 Shoshana Guido RN [facility] 04-05-2025 Miscellaneous Notes PRAF submitted 04/05/25 Shoshana Guido RN documented in this encounter [facility] 04-04-2025 Note HNO ID: [id number] Author: BERNARDO COON MD Service: ? Author Type: Physician Type: Progress Notes Filed: 04/04/2025 09:33 Note Text: EARLY VISIT Calin Graf is a 30 year old here for 2 week visit. Delivery Summary: 03/17/2025 ROS: General: Denies any fever or chills Hypertension Screening: Headache? No. Visual Changes? No Epigastric Pain? No Increased Swelling? No Taking any BP medications at home? No If applicable, monitoring BP at home? (If Yes, include results) NA Mood: sad Depression: admits to symptoms of depression. OB Depression and Anxiety Screening- This Encounter Feeling down, depressed, or hopeless: More than half the days Little interest or pleasure in doing things: Nearly every day I have been able to laugh and see the funny side of things. Not quite so much now I have looked forward with enjoyment to things. Rather less than I used to I have blamed myself unnecessarily when things went wrong. Yes, most of the time I have been anxious or worried for no good reason. Yes, sometimes I have felt scared or panicky for no good reason. Yes, sometimes Things have been getting on top of me. No, most of the time I have coped quite well I have been so unhappy that I have had difficulty sleeping. Not at all I have felt sad or miserable. Yes, quite often I have been so unhappy that I have been crying. Only occasionally The thought of harming myself has occurred to me. Never [place] Depression Scale Total 13 Feeling nervous, anxious, or on edge Several days Not being able to stop or control worrying Several days Anxiety Pre-Screening Total (If >/= 3 additional questions will be reviewed) 2 Feeding: Bottle feeding problems: None Bladder: No dysuria, gross hematuria, urinary frequency, urinary urgency, or incontinence Bowel symptoms: Negative for abdominal discomfort, blood in stools or black stools and change in bowel habits Abdomen: N/A Bleeding: spotting Bottom and Perineum: No issues Sleep: no sleep concerns and sleeps in bassinet/crib in parent's room, feels rested [place] since delivery: Not resumed Emotional support: Yes Exercise: N/A Other issues: None SENSITIVE EXAM: Sensitive exam not performed. PHYSICAL EXAMINATION: BP 100/62 Wt 83.8 kg (184 lb 12.8 oz) LMP 06/18/2024 No BMI 30.75 kg/m? ASSESSMENT AND PLAN: 30 year old status post with normal course. and course complicated by blues, unprovoked tearfulness, sleeping well and normal appetite. Anxious about child life specialist and partner not familiar with .same. HGx off PPD with prior Contraception plan: abstinence and plans for BTO . Reinforced 6-week pelvic rest. Encouraged condom usage should patient deviate. Education: resources provided - see MA/RN note PP Blues/depression w/o suicidal ideation Follow up: Return to Clinic for 6 week visit and as needed. Schedule BTO w Chace Coon MD [facility] 04-04-2025 History of Presen t illness Narrative EARLY VISIT Calin Graf is a 30 year old here for 2 week visit. Delivery Summary: 03/17/2025 ROS: General: Denies any fever or chills Hypertension Screening: Headache? No. Visual Changes? No Epigastric Pain? No Increased Swelling? No Taking any BP medications at home? No If applicable, monitoring BP at home? (If Yes, include results) NA Mood: sad Depression: admits to symptoms of depression. OB Depression and Anxiety Screening- This Encounter Feeling down, depressed, or hopeless: More than half the days Little interest or pleasure in doing things: Nearly every day I have been able to laugh and see the funny side of things. Not quite so much now I have looked forward with enjoyment to things. Rather less than I used to I have blamed myself unnecessarily when things went wrong. Yes, most of the time I have been anxious or worried for no good reason. Yes, sometimes I have felt scared or panicky for no good reason. Yes, sometimes Things have been getting on top of me. No, most of the time I have coped quite well I have been so unhappy that I have had difficulty sleeping. Not at all I have felt sad or miserable. Yes, quite often I have been so unhappy that I have been crying. Only occasionally The thought of harming myself has occurred to me. Never [place] Depression Scale Total 13 Feeling nervous, anxious, or on edge Several days Not being able to stop or control worrying Several days Anxiety Pre-Screening Total (If >/= 3 additional questions will be reviewed) 2 Feeding: Bottle feeding problems: None Bladder: No dysuria, gross hematuria, urinary frequency, urinary urgency, or incontinence Bowel symptoms: Negative for abdominal discomfort, blood in stools or black stools and change in bowel habits Abdomen: N/A Bleeding: spotting Bottom and Perineum: No issues Sleep: no sleep concerns and sleeps in bassinet/crib in parent's room, feels rested [place] since delivery: Not resumed Emotional support: Yes Exercise: N/A Other issues: None SENSITIVE EXAM: Sensitive exam not performed. PHYSICAL EXAMINATION: BP 100/62 Wt 83.8 kg (184 lb 12.8 oz) LMP 06/18/2024 No BMI 30.75 kg/m ASSESSMENT AND PLAN: 30 year old status post with normal course. and course complicated by blues, unprovoked tearfulness, sleeping well and normal appetite. Anxious about child life specialist and partner not familiar with .same. HGx off PPD with prior Contraception plan: abstinence and plans for BTO . Reinforced 6-week pelvic rest. Encouraged condom usage should patient deviate. Education: resources provided - see MA/RN note PP Blues/depression w/o suicidal ideation Follow up: Return to Clinic for 6 week visit and as needed. Schedule BTO w Chace Coon MD documented in this encounter [facility] 03-19-2025 Note HNO ID: [id number] Author: ANA JONES RN Service: ? Author Type: Registered Nurse Type: Progress Notes Filed: 03/19/2025 08:49 Note Text: Patient delivered via by Orlin on 03/17/25 at [facility]. See OB history. Ana Jones RN [facility] 03-19-2025 History of Presen t illness Narrative Patient delivered via by Orlin on 03/17/25 at [facility]. See OB history. Ana Jones RN documented in this encounter [facility] 03-18-2025 Note [facility] Medical Records Department [address] [place] [address] Discharge Summary 03/18/25 0943 MR#: [id number] Acct: [id number] Name: CALIN GRAF Rep #: [id number] : 1995 29 From: Lorena Sharma CNM PCP: Care Physician,No Primary Status:ADM IN Location: [place] [address] Providers Date of Admission: 03/17/25 Primary Care Physician: No Primary Care Phys Reason For Visit: LABOR AND DELIVERY Diagnosis Discharge Diagnosis (1) Vaginal delivery: Status: Acute Code(s): O80 - Encounter for full-term uncomplicated delivery Plan 1) Routine care, PPD #1 2) Vitals signs stable 3) Pain controlled 4) , services PRN 5) D/C home 6) Follow up in 2 weeks and 6 weeks Medications at Discharge Home Medications vitamins-iron fumarate 65 mg iron-folic acid 1 mg tablet (Mynatal-Z) 1 tab PO DAILY 03/17/25 valacyclovir 500 mg tablet (Valtrex) 1,000 mg PO DAILY HSV 03/17/25 acetaminophen 500 mg tablet 1,000 mg (2 x 500 mg) PO Q6H PRN PRN Pain 1-10 Or Fever #0 tabs 03/18/25 ibuprofen 600 mg tablet 600 mg PO Q6H PRN PRN Pain Score 1-10 #30 tabs 03/18/25 Weight / BMI Weight Weight: 198 lb 10.184 oz Body Mass Index (BMI) 34.0 ABG / Lab / Microbiology Data 03/18/25 07:05 03/16/25 23:05 Laboratory: Laboratory Results - last 24 hr 03/17/25 09:40: Blood Type O POSITIVE, Antibody Screen POSITIVE, Antibody Identification ANTI-E, Crossmatch See Detail 03/18/25 07:05: WBC 11.2 H, RBC 3.77 L, Hgb 11.3 L, Hct 33.9 L, MCV 89.9, MCH 30.0, MCHC 33.3, RDW Std Deviation 43.8, RDW Coeff of Delilah 13.5, Plt Count 207, MPV 10.5, Immature Gran % (Auto) 0.300, Neut % (Auto) 64.9, Lymph % (Auto) 27.4, Green % (Auto) 6.2, Eos % (Auto) 0.9, Baso % (Auto) 0.3, Absolute Neuts (auto) 7.3, Absolute Lymphs (auto) 3.05, Nucleated RBC % 0 D/C Instructions Discharge Activity: Return to Normal Activity, May Drive, May Shower and May Take a Tub Bath May resume sexual activity in: 6 weeks Weight Bearing Status: Full weight bearing Call your doctor if you observe: Fever of 101 or Higher, Inability to urinate, Using more than 1 pad per hour, Shortness of breath, Chest pain, Increased palpitations (irregular heartbeat), Calf discomfort and Uncontrolled pain DC O2, CPAP, BIPAP Needs Home O2 Discharge instructions: No Please Follow Up With: Lorena Sharma CNM When: 2 week virtual visit and 6 week visit Meaningful Use Info Meaningful Use Meaningful Use Diagnoses (Choose all that apply): None applicable Discharge Plan Admission Admit Date/Time: 03/17/25 07:30 Primary Reason for Your Visit: Vaginal Delivery Attending Provider: Lorena Sharma Primary Care Provider: Care Physician,No Primary Discharge Orders/Prescriptions Prescriptions: New acetaminophen 500 mg Tablet 1,000 mg PO Q6H PRN PRN (Reason: Pain 1-10 Or Fever) Qty: 0 0RF ibuprofen 600 mg Tablet 600 mg PO Q6H PRN PRN (Reason: Pain Score 1-10) Qty: 30 0RF Continued valacyclovir [Valtrex] 500 mg tablet 1,000 mg PO DAILY No Action Mynatal-Z 65 mg iron- 1 mg tablet 1 tab PO DAILY Referrals / Follow Up: Care Physician,No Primary [Primary Care Provider] - Disposition Disposition (needs filled in before D/C Order can be placed): Home, Self Care 03/18/25 0945 Cosigner Signature (if applicable): CC: CURT Sharma; No Primary Care Physician Signed ADDENDUM by CURT Sharma on 03/18/25 at 1005 Addendum signed 03/18/25 1005 Cosigner Signature (if applicable): cc: CURT Sharma; No Primary Care Physician * Signed [facility] 03-16-2025 Telephone encounter Note Patient notified. Ana Jones RN [facility] 03-16-2025 Miscellaneous Notes Patient notified. Ana Jones RN Ok to monitor at this [...] Lachelle Bean RN documented in this encounter [facility] 03-16-2025 Telephone encounter Note Ok to monitor at this time. If bright red vaginal bleeding, LOF or contractions to go to L&D or check back later today if needs added. Thanks, Lorena Sharma APRN.CNM [facility] Work Phone: 03-16-2025 Telephone encounter Note Patient called for an update. Please advise. Lachelle Bean RN [facility] 03-16-2025 Telephone encounter Note 38w4d Patient called [...] available appointments. Please advise. Lachelle Bean RN [facility] 03-15-2025 Telephone encounter Note MyChart message sent to patient per request. Lana Fields RN [facility] 03-15-2025 Miscellaneous Notes MyChart message sent to patient per request. Lana Fields RN yes,appropriate. Wendi Robb MD Ob patient is 38w3d is scheduled for IOL on 03/19/2025. Called stating that she had + BV & yeast cultures and that Monistat was sent to her pharmacy for yeast infection. Patient asking if she can have a pill for yeast since IOL is scheduled for Wednesday. Patient requesting a mychart message response. documented in this encounter [facility] 03-15-2025 Telephone encounter Note yes,appropriate. Wendi Robb MD [facility] 03-15-2025 Telephone encounter Note Ob patient is 38w3d is scheduled for IOL on 03/19/2025. Called stating that she had + BV & yeast cultures and that Monistat was sent to her pharmacy for yeast infection. Patient asking if she can have a pill for yeast since IOL is scheduled for Wednesday. Patient requesting a mychart message response. [facility] 03-13-2025 Note Addended by: WENDI ROBB on: 03/13/2025 04:03 PM Modules accepted: Orders [facility] 03-13-2025 Miscellaneous Notes Addended by: WENDI ROBB on: 03/13/2025 04:03 PM Modules accepted: Orders Addended by: SUMI BUCKNER on: 03/13/2025 03:40 PM Modules accepted: Orders RR- VB No. LOF some vaginal discharge, some pruritus, no new sexual partners, CTXS No. Movement: present. Other c/o: lots of pressure Medication list reviewed. SENSITIVE EXAM: The sensitive examination was discussed with the Patient or Patient's Authorized Parts Representative. As applicable, any other physician, advance practice provider, medical student, or other health professional student that will be observing or involved in the sensitive examination for educational or training purposes was discussed with the Patient or Authorized Parts Representative. The Patient or Authorized Parts Representative has agreed to proceed with the sensitive [...] risk due to social problems, third trimester ([facility]) Orders: URINE OB DIP B/O 38 weeks gestation of ([facility]) Orders: URINE OB DIP B/O Vaginal discharge during in third trimester ([facility]) History of herpes genitalis no evidence of [...] of amniotic fluid. Lab Address: Ob/gynecology [address] [place] [address] Dept: [phone] Provider: MD Wendi Bejarano M.D. documented in this encounter [facility] 03-13-2025 Note Addended by: Shawn BUCKNER on: 03/13/2025 03:40 PM Modules accepted: Orders [facility] 03-13-2025 Progress note Formatting of shawn his note might be different from the original. RR- VB No. LOF some vaginal discharge, some pruritus, no new sexual partners, CTXS No. Movement: present. Other c/o: lots of pressure Medication list reviewed. SENSITIVE EXAM: The sensitive examination was discussed with the Patient or Patient's Authorized Parts Representative. As applicable, any other physician, advance practice provider, medical student, or other health professional student that will be observing or involved in the sensitive examination for educational or training purposes was discussed with the Patient or Authorized Parts Representative. The Patient or Authorized Parts Representative has agreed to proceed with the sensitive [...] risk due to social problems, third trimester ([facility]) Orders: URINE OB DIP B/O 38 weeks gestation of ([facility]) Orders: URINE OB DIP B/O Vaginal discharge during in third trimester ([facility]) History of herpes genitalis no evidence of [...] of amniotic fluid. Lab Address: Ob/gynecology [address] [facility] [address] Dept: [phone] Provider: MD Wendi Bejarano M.D. [facility] 03-13-2025 Instructions Sumi Buckner MA - 03/13/2025 2:54 PM EDT SEQUENTIAL SCREENINGS The [facility] offers sequential screenings for women who are [...] It will require an appointment with our electro mechanical solar technician. This is not an ultrasound performed [...] the above symptoms, contact our office at [phone] and ask to speak with a nurse. After hours, you can call doctors registry at [phone] OR call [facility] at [phone] and ask to have the doctor principal consultant paged. If you consider this an emergency, dial [phone] or go to your nearest emergency department. NEED HELP? Are you dealing with a violent or abusive relationship? Are you a victim of rape or sexual assult? Call [facility] ([place]) 24 hour Crisis Hotline: 174.145.6373 or 995-214-1182. MANUAL Your Guide to a Healthy manual is now on-line. Visit [place] [email or web address] to download your free copy documented in this encounter [facility] 03-07-2025 Progress note Formatting of t his note might be different from the original. RR- VB No. LOF No. CTXS irreg. Movement: present. Other c/o: uncomfortable, hard to sleep. Lots of pressure Medication list reviewed. SENSITIVE EXAM: The sensitive examination was discussed with the Patient or Patient's Authorized Parts Representative. As applicable, any other physician, advance practice provider, medical student, or other health professional student that will be observing or involved in the sensitive examination for educational or training purposes was discussed with the Patient or Authorized Parts Representative. The Patient or Authorized Parts Representative has agreed to proceed with the sensitive [...] kick counts wants induction at 39 weeks Wendi Robb M.D. [facility] 03-07-2025 Miscellaneous Notes RR- VB No. LOF No. CTXS irreg. Movement: present. Other c/o: uncomfortable, hard to sleep. Lots of pressure Medication list reviewed. SENSITIVE EXAM: The sensitive examination was discussed with the Patient or Patient's Authorized Parts Representative. As applicable, any other physician, advance practice provider, medical student, or other health professional student that will be observing or involved in the sensitive examination for educational or training purposes was discussed with the Patient or Authorized Parts Representative. The Patient or Authorized Parts Representative has agreed to proceed with the sensitive examination. (Sensitive examination includes inspection and/or palpation of the breasts, pelvis, prostate and anorectal regions). 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 documented in this encounter [facility] 03-07-2025 Instructions Sumi Buckner MA - 03/07/2025 10:57 AM EDT SEQUENTIAL SCREENINGS The [facility] offers sequential screenings for women who are [...] It will require an appointment with our electro mechanical solar technician. This is not an ultrasound performed [...] the above symptoms, contact our office at [phone] and ask to speak with a nurse. After hours, you can call doctors registry at [phone] OR call [facility] at [phone] and ask to have the doctor principal consultant paged. If you consider this an emergency, dial 9-7-7 or go to your nearest emergency department. NEED HELP? Are you dealing with a violent or abusive relationship? Are you a victim of rape or sexual assult? Call [facility] ([place]) 24 hour Crisis Hotline: 716.456.6022 or 427-228-6788. MANUAL Your Guide to a Healthy manual is now on-line. Visit [email or web address] to download your free copy documented in this encounter [facility] 03-01-2025 Progress note Formatting of t his note might be different from the original. RR- VB No. LOF No. CTXS few BH, less since not working. . Movement: present. Other c/o: denies HSV symtpoms Medication list reviewed. SENSITIVE EXAM: The sensitive examination was discussed with the Patient or Patient's Authorized Parts Representative. As applicable, any other physician, advance practice provider, medical student, or other health professional student that will be observing or involved in the sensitive examination for educational or training purposes was discussed with the Patient or Authorized Parts Representative. The Patient or Authorized Parts Representative has agreed to proceed with the sensitive [...] 39 week induction GC/CT today GBS done Wendi Robb M.D. [facility] 03-01-2025 Miscellaneous Notes RR- VB No. LOF No. CTXS few BH, less since not working. . Movement: present. Other c/o: denies HSV symtpoms Medication list reviewed. SENSITIVE EXAM: The sensitive examination was discussed with the Patient or Patient's Authorized Parts Representative. As applicable, any other physician, advance practice provider, medical student, or other health professional student that will be observing or involved in the sensitive examination for educational or training purposes was discussed with the Patient or Authorized Parts Representative. The Patient or Authorized Parts Representative has agreed to proceed with the sensitive [...] 39 week induction GC/CT today GBS done Wendi Robb M.D. documented in this encounter [facility] 03-01-2025 Instructions Sumi Buckner MA - 03/01/2025 11:08 AM EDT SEQUENTIAL SCREENINGS The [facility] offers sequential screenings for women who are [...] It will require an appointment with our electro mechanical solar technician. This is not an ultrasound performed [...] the above symptoms, contact our office at [phone] and ask to speak with a nurse. After hours, you can call doctors registry at [phone] OR call [facility] at [phone] and ask to have the doctor principal consultant paged. If you consider this an emergency, dial 8-1-0 or go to your nearest emergency department. NEED HELP? Are you dealing with a violent or abusive relationship? Are you a victim of rape or sexual assult? Call [facility] ([facility] 24 hour Crisis Hotline: 391.429.5007 or 377-721-7850. MANUAL Your Guide to a Healthy manual is now on-line. Visit [email or web address] to download your free copy documented in this encounter [facility] 02-19-2025 Progress note Formatting of t his note might be different from the original. Anatomy ultrasound reviewed. No abnormalities identified. Follow up as clinically indicated. Please place copy in ob chart. Wendi Robb MD [facility] 02-19-2025 Miscellaneous Notes Anatomy ultrasound reviewed. No abnormalities identified. Follow up as clinically indicated. Please place copy in ob chart. Wendi Robb MD documented in this encounter [facility] 02-14-2025 Note Indication Evaluation of growth Anti-E [...] 11 oz EFW by: Hadlock (HC-AC-FL) Extended Matrix Drier Tender 3.8 mm Extremities / Bony Struc FL [...] Wants to know sex: yes Performed By: Lana Perkins RDMS, RVT Read By: Mayi Walton [...] due to social problems, third trimester (HCC) - ICD9: V23.89, ICD10: O09.73 (primary diagnosis) - URINE OB DIP B/O 2. 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 34 weeks gestation of (HCC) - ICD9: V22.2, ICD10: Z3A.34 PTL precautions - URINE OB DIP B/O Lachelle Kramer MD [facility] 02-14-2025 Miscellaneous Notes S: Calin Graf is [...] due to social problems, third trimester (HCC) - ICD9: V23.89, ICD10: O09.73 (primary diagnosis) - URINE OB DIP B/O 2. 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 34 weeks gestation of (HCC) - ICD9: V22.2, ICD10: Z3A.34 PTL precautions - URINE OB DIP B/O Lachelle Kramer MD documented in this encounter [facility] 02-14-2025 Instructions Errol Chen MA - 02/14/2025 1:16 PM EDT SEQUENTIAL SCREENINGS The [facility] offers sequential screenings for women who are [...] It will require an appointment with our electro mechanical solar technician. This is not an ultrasound performed [...] the above symptoms, contact our office at [phone] and ask to speak with a nurse. After hours, you can call doctors registry at [phone] OR call [facility] at [phone] and ask to have the doctor principal consultant paged. If you consider this an emergency, dial 0-1-5 or go to your nearest emergency department. NEED HELP? Are you dealing with a violent or abusive relationship? Are you a victim of rape or sexual assult? Call [facility] ([place]) 24 hour Crisis Hotline: 690.352.7418 or 057-319-7474. MANUAL Your Guide to a Healthy manual is now on-line. Visit [email or web address] to download your free copy documented in this encounter [facility] 01-31-2025 Progress note Formatting of t his [...] in 2 weeks or prn kick counts Wendi Robb M.D. [facility] 01-31-2025 Miscellaneous Notes RR- VB No. LOF [...] in 2 weeks or prn kick counts Wendi Robb M.D. documented in this encounter [facility] 01-31-2025 Instructions Sumi Buckner MA - 01/31/2025 11:31 AM EDT SEQUENTIAL SCREENINGS The [facility] offers sequential screenings for women who are [...] It will require an appointment with our electro mechanical solar technician. This is not an ultrasound performed [...] the above symptoms, contact our office at [phone] and ask to speak with a nurse. After hours, you can call [employer] registry at [phone] OR call [facility] at [phone] and ask to have the doctor principal consultant paged. If you consider this an emergency, dial 9--1 or go to your nearest emergency department. NEED HELP? Are you dealing with a violent or abusive relationship? Are you a victim of rape or sexual assult? Call [facility] ([place]) 24 hour Crisis Hotline: 627.695.8654 or 074-394-5731. MANUAL Your Guide to a Healthy manual is now on-line. Visit [email or web address] to download your free copy documented in this encounter [facility] 01-17-2025 Progress note Formatting of t his note might be different from the original. Anatomy ultrasound reviewed. No abnormalities identified. Follow up as clinically indicated. Please place copy in ob chart. Wendi Robb MD [facility] 01-17-2025 Miscellaneous Notes Anatomy ultrasound reviewed. No abnormalities identified. Follow up as clinically indicated. Please place copy in ob chart. Wendi Robb MD documented in this encounter [facility] 01-17-2025 Note Indication Evaluation of growth. Discrepancy [...] 9 oz EFW by: Hadlock (HC-AC-FL) Extended Matrix Drier Tender 3.0 mm Extremities / Bony Struc FL [...] scans for monitoring 30 weeks gestation of ([facility]) US results pending from today kick counts f/u in 2 weeks or prn Wendi Robb M.D. [facility] 01-17-2025 Miscellaneous Notes RR- VB No. LOF [...] scans for monitoring 30 weeks gestation of ([facility]) US results pending from today kick counts f/u in 2 weeks or prn Wendi Robb M.D. documented in this encounter [facility] 01-17-2025 Instructions Errol Chen MA - 01/17/2025 1:18 PM EDT SEQUENTIAL SCREENINGS The [facility] offers sequential screenings for women who are [...] It will require an appointment with our electro mechanical solar technician. This is not an ultrasound performed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 Wendi Robb MD PAST SURGICAL HISTORY Procedure Laterality [...] breathing on edgar (more content not included)... [facility] 11-22-2024 History of Present illness Narrative Obstetrics & Gynecology [place] [facility] Outpatient Visit Type: Maternal Medicine Consult Outpatient Visit Date: November 22, 2024 Service Time: 4:36 PM Requesting Provider: Wendi Robb History of Present Illness: Calin Graf is 29 year old at 22w2d presenting for consultation with Maternal- Medicine at [facility] in the setting of isoimmunization . History [...] repeat 4 weeks. Patient reports FOB in halfway so cannot test him. Wendi Robb MD 03/31/16: titer is 4. Repeat titer in 4 wks. 01/09/16 - titer is 8, needs repeat titer 4 weeks, consider FOB testing - KJ February 10, 2016 Follow titers q 4 weeks, needs growth scan q [address] Hearn US report from 02/05. 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 Wendi Robb MD PAST SURGICAL HISTORY Procedure Laterality [...] 74 - 99 mg/dL Final Comment: The [place] Diabetes Association (ADA) provides guidance for cutoff [...] Standards of Medical Care in Diabetes 2016, [place] Diabetes Association. Diabetes Care. 2016.39(Suppl 1). BUN [...] 5.2 4.3 - 5.6 % Final Comment: [place] Diabetes Association guidelines indicate that patients with [...] a calculated value from HgbA1c and is unit support representative of the average blood glucose level [...] correction at 3 months of age. Rylee Scott, DIRECTOR OF CASINO MARKETING.ELECTRICAL WIRER Current Assessment & Plan 11/22/2024 [facility] No cardiac concerns identified on US. 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 Lachelle Hickman MD August 02, 2024 Patient has a history of amphetamine and ecstasy abuse. She states that she has not used either since December 2021. She does admit to marijuana use and plans on continuing to use it through the second trimester. She states it does help her with her anxiety. Rylee Aggarwalniki, DIRECTOR OF CASINO MARKETING.ELECTRICAL WIRER January 02, 2022 H/o multiple drug use, including meth and heroin. Completed course of treatment, states she no longer is in treatment but is not using. other than some THC at times. Wendi Robb MD Current Assessment & Plan 11/22/2024 [facility] Pt reports sobriety for three years. 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 Next [facility] visit in 2 weeks. Further management with [facility] visits will depend on MCA dopplers and paternal antigen status I shared my findings and recommendations via the shared medical record or via the mail to the referring provider. I spent 60 minutes in the visit, with more than 50% of the total ymyv-rn-ifob time of the visit in counseling / coordination of care. Lachelle Hickman MD documented in this encounter [facility] 11-22-2024 Telephone encounter Note Reddy called patient and she notes that she just got done with appt in [place] and she notes that she would like to send My Chart message with community social service resources. Reddy will send My Chart message with resource. [facility] 11-22-2024 Miscellaneous Notes Reddy called patient and she notes that she just got done with appt in [place] and she notes that she would like Sw to send My Chart message with community [employer] service resources. Reddy will send My Chart message with resource. documented in this encounter [facility] 11-22-2024 Note Indication Antibody E isoimmunization Impression [...] - MCA Doppler q2 weeks -Please see [facility] for counseling note - Additional follow [...] Biometry Standard EFW by: Hadlock (HC-AC-FL) Extended Matrix Drier Tender 4.1 mm Other Structures FHR 137 bpm [...] assessment form submitted 11/09/24 Shoshana Guido RN [facility] 11-09-2024 Miscellaneous Notes 2nd risk assessment form submitted 11/09/24 Shoshana Guido RN documented in this encounter [facility] 11-08-2024 Progress note Formatting of t his [...] weeks gestation of Orders: ANTIBODY SCREEN; Future Wendi Robb M.D. [facility] 11-08-2024 Miscellaneous Notes RR- VB No. LOF [...] single or unspecified fetus D/w her this MFM consult ordered MCA dopplers q 2 weeks- orders in d/w her may need to deliver at tertiary care center Orders: ANTIBODY SCREEN; Future 20 weeks gestation of Orders: ANTIBODY SCREEN; Future Wendi Robb M.D. documented in this encounter [facility] 11-08-2024 Instructions Sumi Buckner MA - 11/08/2024 2:23 PM EST SEQUENTIAL SCREENINGS The [facility] offers sequential screenings for women who are [...] It will require an appointment with our electro mechanical solar technician. This is not an ultrasound performed [...] the above symptoms, contact our office at [phone] and ask to speak with a nurse. After hours, you can call doctors registry at [phone] OR call [facility] at [phone] and ask to have the doctor principal consultant paged. If you consider this an emergency, dial 9--5 or go to your nearest emergency department. NEED HELP? Are you dealing with a violent or abusive relationship? Are you a victim of rape or sexual assult? Call [facility] ([place]) 24 hour Crisis Hotline: 849.931.7610 or 723-665-0745. MANUAL Your Guide to a Healthy manual is now on-line. Visit [email or web address] ncyGuide to download your free copy documented in this encounter [facility] 11-07-2024 Telephone encounter Note Patient was transferred to [facility] from [facility] triage nurse. PSS unable to find availability for MFM consult in [place] within the next two weeks. PSS spoke with triage nurse again who advised that patient should schedule consult elsewhere then could schedule follow up MFM visits in [place]. Patient agreed to care plan and scheduled US and MFM consult at [place] on 11/22/24. Patient unable to continue with scheduling future US due to having to go to work. She will follow up with front office help tomorrow after her appointments to be assisted with scheduling US every two weeks. [facility] 11-07-2024 Miscellaneous Notes Patient was transferred to [facility] from [facility] triage nurse. PSS unable to find availability for MFM consult in [place] within the next two weeks. PSS spoke with triage nurse again who advised that patient should schedule consult elsewhere then could schedule follow up MFM visits in [place]. Patient agreed to care plan and scheduled US and MFM consult at [place] on 11/22/24. Patient unable to continue with scheduling future US due to having to go to work. She will follow up with front office help tomorrow after her appointments to be assisted with scheduling US every two weeks. documented in this encounter [facility] 11-07-2024 Telephone encounter Note See result note from 11/07/24. Lana Fields RN [facility] 11-07-2024 Miscellaneous Notes See result note from 11/07/24. Lana Fields RN See my note about follow up in result notes. MFM consult and dopplers q 2 weeks. Orders were entered. See if you can pull any records for her last for blood work/blood bank since she delivered at [facility] to have available for MFM consult. (ie was baby liu +). Thanks. Wendi Robb MD 19w4d Patient viewed her +Antibody Screen on Mychart. Patient feeling anxious about the report. Would like provider principal consultant to review in SERGEI absence. Thank you. Lahcelle Bean, RN documented in this encounter [facility] 11-07-2024 Telephone encounter Note See my note about follow up in result notes. MFM consult and dopplers q 2 weeks. Orders were entered. See if you can pull any records for her last for blood work/blood bank since she delivered at [facility] to have available for MFM consult. (ie was baby liu +). Thanks. Wendi Robb MD [facility] 11-03-2024 Telephone encounter Note 19w4d Patient viewed her +Antibody Screen on Mychart. Patient feeling anxious about the report. Would like provider principal consultant to review in SERGEI absence. Thank you. Lachelle Bean, RN [facility] 10-11-2024 Progress note Formatting of t [...] RTO in 4 weeks Lorena Sharma APRN.CNM [facility] Work Phone: 10-11-2024 Miscellaneous Notes SERGEI-S: Calin [...] Lorena Sharma APRN.CNM documented in this encounter [facility] 10-11-2024 Instructions Lorena Sharma APRN.CNM - 10/11/2024 10:19 AM EST SEQUENTIAL SCREENINGS The [facility] offers sequential screenings for women who are [...] It will require an appointment with our electro mechanical solar technician. This is not an ultrasound performed [...] the above symptoms, contact our office at [phone] and ask to speak with a nurse. After hours, you can call doctors registry at [phone] OR call [facility] at [phone] and ask to have the doctor principal consultant paged. If you consider this an emergency, dial [phone] or go to your nearest emergency department. NEED HELP? Are you dealing with a violent or abusive relationship? Are you a victim of rape or sexual assult? Call [facility] ([place]) 24 hour Crisis Hotline: 707.915.7768 or 476-690-9080. MANUAL Your Guide to a Healthy manual is now on-line. Visit [facility].org/HealthyPregna ncyGuide to download your free copy Low Dose Aspirin This sheet talks about exposure to low dose aspirin in and while . This information should not take the place of medical care and advice from your healthcare provider.\ What is low dose aspirin? Aspirin is also known as acetylsalicylic acid. It is a common prescription and uebv-uys-dnlnmxf medication similar to other non-steroidal inflammatory drugs [...] not expected to increase risks to a infant. Only small amounts of low dose aspirin enter the breast milk and adverse effects have not been reported in breastfed newborns or older infants. Healthcare providers might recommend low dose aspirin in some people during to treat certain medical conditions. However, regular strength aspirin (over 325 mg) is not preferred during . Aspirin eliminates from an s body more slowly than from an [...] . For more information, please see the GoToTags fact sheet Paternal Exposures at https://Submittable.org/fact-she ets/dczxqnzk-auxhdphdd-efvzjqduh/ . documented in this encounter [facility] 10-03-2024 Note HNO ID: [id number] Author: FRANCISCO CHAVEZ PA-C Service: ? Author Type: Physician Hogshead Builder Type: Progress Notes Filed: 10/03/2024 11:32 Note Text: This note was created using BrainMass. Subjective Calin Graf is a 29 year [...] was very clearly instructed to contact her SPARE FIXER or report to an emergency department if she notes any acute worsening of her symptoms. Patient verbalizes good understanding of the above instructions. CLINICAL IMPRESSION: Bronchopneumonia; Persistent Cough ASSESSMENT/PLAN: 1. Bronchopneumonia - ICD9: 485, ICD10: J18.0 - AZITHROMYCIN 250 MG TABLET - ALBUTEROL SULFATE HFA 90 MCG/ACTUATION AEROSOL INHALER - INHALATIONAL SPACING DEVICE Francisco Chavez PA-C [facility] 10-03-2024 History of Present illness Narrative This note was created using Strikinglyriter. Subjective Calin Graf is a 29 year [...] was very clearly instructed to contact her SPARE FIXER or report to an emergency department if she notes any acute worsening of her symptoms. Patient verbalizes good understanding of the above instructions. CLINICAL IMPRESSION: Bronchopneumonia; Persistent Cough ASSESSMENT/PLAN: 1. Bronchopneumonia - ICD9: 485, ICD10: J18.0 - AZITHROMYCIN 250 MG TABLET - ALBUTEROL SULFATE HFA 90 MCG/ACTUATION AEROSOL INHALER - INHALATIONAL SPACING DEVICE Francisco Chavez PA-C documented in this encounter [facility] 09-22-2024 Telephone encounter Note Patient asking if a different PNV can be sent to her pharmacy as her insurance is not covering the one that was sent. Lana Fields RN [facility] 09-22-2024 Miscellaneous Notes Patient asking if a different PNV can be sent to her pharmacy as her insurance is not covering the one that was sent. Lana Fields RN documented in this encounter [facility] 09-14-2024 Telephone encounter Note No further info available until quant is done. Hep C antibody will always be + Rylee Scott APRN.CNP [facility] 09-14-2024 Miscellaneous Notes No further info available [...] if additional advise needs given to Pt. Vivien Medina RN documented in this encounter [facility] 09-14-2024 Telephone encounter Note 12w3d Pt calling [...] if additional advise needs given to Pt. Vivien Medina, RN [facility] 09-13-2024 Progress note Formatting of t his note might be different from the original. RR- VB No. LOF No. CTXS No. Movement: absent. Other c/o: nausea intermittently Medication list reviewed. SENSITIVE EXAM: Sensitive exam not performed. Physical Exam See Flow Sheet Abd: soft, nontender, gravid Ext: edema: no A/P 12w2d Estimated Date of Delivery: 03/26/25 PN labs and [id number] today rx for PNV f/u in 4 weeks. Encounter for supervision of high risk in first trimester, antepartum Orders: vit 96-nkgr-roqab-dha (SELECT-OB+DHA) 29 mg iron-1 mg -250 mg; [...] in second trimester, single or unspecified fetus Wendi Robb M.D. [facility] 09-13-2024 Miscellaneous Notes RR- VB No. LOF No. CTXS No. Movement: absent. Other c/o: nausea intermittently Medication list reviewed. SENSITIVE EXAM: Sensitive exam not performed. Physical Exam See Flow Sheet Abd: soft, nontender, gravid Ext: edema: no A/P 12w2d Estimated Date of Delivery: 03/26/25 PN labs and [id number] today rx for PNV f/u in 4 weeks. Encounter for supervision of high risk in first trimester, antepartum Orders: vit 15-kxpu-xvpel-dha (SELECT-OB+DHA) 29 mg iron-1 mg -250 mg; [...] in second trimester, single or unspecified fetus Wendi Robb M.D. documented in this encounter [facility] 09-13-2024 Instructions Sumi Buckner MA - 09/13/2024 1:21 PM EST SEQUENTIAL SCREENINGS The [facility] offers sequential screenings for women who are [...] It will require an appointment with our electro mechanical solar technician. This is not an ultrasound performed [...] the above symptoms, contact our office at [phone] and ask to speak with a nurse. After hours, you can call doctors registry at [phone] OR call [facility] at [phone] and ask to have the doctor principal consultant paged. If you consider this an emergency, dial 9-1-7 or go to your nearest emergency department. NEED HELP? Are you dealing with a violent or abusive relationship? Are you a victim of rape or sexual assult? Call [facility] ([place]) 24 hour Crisis Hotline: 155.116.9972 or 938-410-3949. MANUAL Your Guide to a Healthy manual is now on-line. Visit [facility].org/HealthyPregna ncyGuide to download your free copy documented in this encounter [facility] 08-04-2024 Telephone encounter Note 1st risk assessment form submitted 08/04/24 Praveen Ambriz RN [facility] 08-04-2024 Miscellaneous Notes 1st risk assessment form submitted 08/04/24 Praveen Ambriz RN documented in this encounter [facility] 08-02-2024 Instructions Rylee Scott APRN.ELECTRICAL WIRER - 08/02/2024 10:54 AM EST Images from the original note were not included. Please select the following link to access the [facility] Your Guide to a Healthy . www.Ccf.org/healthypregnancyguide Psychotherapy Services at [facility] Call Behavioral Health Access Line at [phone] to schedule Individual psychotherapy In-person or virtual Wait time for first evaluation may be 12 or more weeks. Wait list spots may be available. Due to the high volume of patients this option is recommended if you are looking for short term acute symptom coping strategies. 8-450-6-GTLZ6OIOK - [place] Maternal Mental Health Hotline If you are in suicidal crisis, please call or text 4-344-062-TALK ( ) or visit the National Suicide Prevention Lifeline website. mchb.[facility].gov If you are in crisis, call 911 or go to your nearest Emergency Department Here are some links for wonderful Providers here in the community and surrounding areas. Do not hesitate to contact their offices, many are offering virtual visits during this time. Psychotherapy Services outside of [facility] Support International Online Provider Directory https://Buscatucancha.com.com/ - can assist in finding providers in your area that might be more extensive then the list below. [facility] [place], [place] [address] [place] [address] [facility] [address] [place] [address] [facility] [address] [place], [place] [address] [facility] [address] [place] [address] Anayeli Lambert MD [address] [place], [place] [id number] [facility] [address] [facility], [address] [place] [address] [facility] Services [address] [place] [address] [facility] Counseling Services [place] / [place] [phone]/ [phone] Alycia Hays [address] [facility] [address] [facility] [phone] [facility] [place] / [place] [phone] Behavioral health services of on license of [facility] [address] [place] [address]/ [facility] [place] and baxter [phone] Hunter Waite, DANI, CLC Bump and Beyond Family Therapy Workshops, telehealth and at home visits. [phone] [facility] counseling [place] 20 locations [place], [place], [place], [place], [place], [place], [place], [facility], [place], [place], [place], [place], [place], [place], [facility], [place], [place] ,[facility], [place], [place],[facility], [facility], [place], [facility], [facility], [place] www.[facility].cox south [phone] Psychotherapy resources outside of [facility] are listed below [facility] SED Web Psychotherapy Web: https://www.Nimbuz Inc/ Support International Online Provider Directory https://YOOSE/ [facility] https://Verient/ Partners for Behavioral Health and Wellness Web: https://Docalytics/ Telefonica for Effective Living Web: https://Viva Dengi.[place] Biomass Exchange.Axial/ LifeStance Web: https://Cardiovascular Simulation.Axial/location/s sparks/arizona/ Signature Health Web: https://www.signaturehealthinc.or / [facility] Web: https://Molcure.org/ Recovery Resources Mental health and substance abuse help Web: https://www.Primeworks Corporations.org & RESOURCES Support International Direct peer support and connection to professional resources Non-Emergency Helpline Phone: / Text: [phone] Web: https://www..net/ Online Provider Directory: https://Buscatucancha.com.Axial/ Online Support Meetings: https://www..net/get-he lp/wgk-jhnmca-dvtkbyp-meetings/ ANTHONY Baby and Quality Assurance Analyst Services Web: https://wwwBirst/ GoToTags Expert information on medication use during and Text: [phone] Web: https://Swogo/ NATIONAL REGISTRY FOR PSYCHIATRIC MEDICATIONS Currently studying the safety of antidepressants, ADHD medications and atypical antipsychotics taken during TO PARTICIPATE CALL TOLL-FREE: Web: https://womenentalhealth.org/re search/pregnancyregistry/ Support Groups: [facility]- Follow on facebook Baby Bistro support group led by [facility] department [facility] - Support Group [facility].org The POEM support group [phone] Www.poUbersenseonline.org Follow on facebook - POARTURO champagnemontaño chapter Online support meetings PSI https://www..net/get-he lp/spc-hodxwd-bzyyfqp-meetings/ [facility] mommy and me virtual support group 11:30-1pm Support for mothers and new babies and toddlers Loop childbirth education: Childbirth @psychiatric.org or call [phone] CRISIS: CRISIS HOTLINE [phone], 911 or go to the nearest . [facility] [phone] / [facility] [phone] https://www.st. [facility]'s health partnersrb.org Crisis text line text the word HOME to 996062 [facility] [address] fanny [address] [facility] [address] www.prietoActiviomics.Axial Kaur Saunders clinical counseling [address] [address] www.WeijuhbrittFlint Capital.Axial [phone] Holding space psychotherapy Faviola Thomas MSW ADVISOR CONSULTANT-S [address] [facility] www.Orteq [phone]/ [place] [phone] They all offer virtual. All work with trauma Support groups Online support meetings PSI https://www..net/get-he lp/ajm-ehkgkj-zwfenlr-meetings/ Here are the support groups they offer: Support of parents of 1 to 4 years old children POEM ( Outreach and Encouragement for Moms) offers free support for mothers experiencing depression, anxiety, and other mood and anxiety disorders. Masks are recommended but not required. No pre-registration required. Babies in arms welcome. meetings now take place on the and Wednesday of each month Location: [facility] [address] [place] [address] Room 122 (library room) 7-8:00 p.m. When you enter the [facility] parking lot off of [address] the entrance door closest to our meeting room is on the front of the building toward the right. For those who are more comfortable with a virtual platform, POEM offers online support group options several days of the week. To register for an online group or to find out more about POEM, website at: https://aohio.org/get-help/[facility] hospitaldsoh-gtgods-ioppvj/poem-services/ offer a confidential helpline: private Facebook group is called MEAGHAN Connelly Here are the groups they offer: Traumatic childbirth resources: Http://pattch.org/ https://www.mirtaValidicmandi Eyevensys.Axial/ Name Location (s) Phone # (s) Services Website [facility] [address] [place], [place] - [phone]; [address] [phone] In-Person GROUPS INDIVIDUAL THERAPY MATERNAL- MENTAL HEALTH MEDICATION MANAGEMENT PLAY AND ART THERAPY TELETHERAPY https://www.Nimbuz Inc/s ervices/ [facility] Kaylee MONTAÑO? [address] [place], [place] [address] ? [address], [address] [place], [place] [id number] ? ELLIS [address] [place], [place] [address]? Grief Support Groups Individual Grief Counseling Spiritual Care Memorial Events https://north providence.[facility].org/grief-services [facility] [address] [place], [place] [address]; ; Email: [email or web address] Women's Mental Health; Couples Counseling; Trauma (EMDR); Stress Management; Mood and Anxiety Related Disorders- and much more https://www.SPR Therapeutics/ LifeStance Numerous as they have contract providers: access website to find specific providers near you Counseling including CBT and EMDR as well as many more modalities; Medication Management; Telehealth and In-Person https://InMage Systems/ Codealike [facility] [address] [place] [address]; [phone] Personal, Family and Group Therapy; Psychological Testing and Diagnosis; Medication Management; Life and Career Coaching; Psychoanalysis; Literacy Testing; Yoga and Meditation https://Docalytics/ Fit Mind [place] [address] [facility] [address], [place] [address] [address] ; [address] [place] [address], [address] [place] [address]; Office # for both sites: Individual and Couples Counseling https://www.Campanda.Axial/ paymentinsurance.html OCD & Anxiety [facility] [address] [facility], [address], [place] [address]; Specialize in Cognitive-Behavioral Therapy (CBT) for the treatment of anxiety disorders across the lifespan. TELEHEALTH ONLY. https://ocdandanxietycenterofcRealeyesv MyFeelBack.Axial/faqs [facility] [address] [place], [address] [place] [address] [facility] [place], [address] [place] [address] [facility] [place], [address] [place] [address] [place], [address], [id number] [place] [address] [facility] [place], [address] [place] [address] [place], [place], [id number] Transportation Services To minimize patient barriers, [facility] provides transportation services to patients who qualify. If you are unable to get to your appointment at any of our facilities, please let us know. Need help now? Stop by one of our walk-in clinics to establish behavioral health care. Counseling Indvidual, Group, Couples and Family Counseling and EMDR. Medication Management Case Management benefits applications housing assistance Substance abuse treatment Medication assisted treatment https://www.[facility].or g/mental-health/ [facility] OFFICE AT [facility] [address] [place] [address] [facility] OFFICE [address] [place] [address] [facility] OFFICE [address] [place] [address] TOW OFFICE (at [facility] [address] [place] [address] [facility] SYRINGE EXCHANGE PROGRAM & HIV SCREENING [address] [place] [address] [facility] EXCHANGE PROGRAM [address] [place] [address] Behavioral Health Urgent Care: [facility] Counseling Indvidual and Group Medication Management Case Management benefits applications housing assistance Substance abuse treatment Medication assisted treatment Employment Services/ Job Training https://theGemaers4Lessio.org/ Recovery Resources [address] [place], [place] [address]: P: [phone] [address] [facility], [facility] [place], [place] [address] P: [phone] Our services include: Addiction Mental Health Treatment Assessment Psychiatry Medical Care Employment Housing Drug and Alcohol Prevention HIV/AIDS Prevention https://www.recres.org/ [facility] [place] [address] [place] [address] [place] [address] [place] [address] [address] [place] [id number] [place] [address] [place] [address] [place] [address] [facility] [address] [place] [address] [place] [address] [place] [address] TMS Therapy/ Counseling Psychocological Testing for ADHD Medication Management In-Person/ Telemedicine https://www.Veebox/ivone ents-depression Memory & Psychological services [address] [address], [place] [address] Neuropsychological Testing For ADHD https://www.memoryandpsych.com/ The [facility] - Main Office [address] [place], [place] [address] [address] [id number] Providing gxvc-in-xddz and telehealth services. Adult Case Management Community Education and Prevention Employment Outpatient Treatment - Counseling & Psychotherapy Psychiatric Services http://www.[facility].org/ [facility] [place] [address] [place] [address] [facility]) [address] [place] [address] Virtual Appointments! Now offering safe and convenient virtual client appointments to anyone in [place]! Individual Therapy Couples/Relationship Therapy Trauma/EMDR Therapy Art Therapy Play Therapy Research Hydrologist Support: Parenting Skills, Parent Child Interaction Therapy, Parent Interaction Therapy Meditation Dietitian/Sales And Service Engineer Services Group Therapy Yoga https://www.GroupPrice. Axial/ Nasreen Garcia [phone] Private Practice: Telehealth Only Specializes in EMDR for Trauma None MORNING SICKNESS IN by Nadeen Mancia M.D. for College Book Renter As you may already know, morning sickness can often be more appropriately called evening sickness or csfks-jekvjv-ki-the-day sickness. While there are the dhaval few, [...] prevent nausea from starting. vitamins and nausea: Pre- vitamins can sometimes worsen nausea in . [...] medication, Doxylamine, is currently marketed as an tofb-ndl-iuirooo sleeping pill. Ask your practitioner if creating a vitamin B6/Doxylamine combination with gsxw-ibi-oyzsnhw medications would be safe for you. Prescription [...] The main active chemical in marijuana is dywom-7-cefpvxarbchthicvqadg (THC), which is what causes you to [...] smoke. Most professional organizations such as the [place] Academy of Pediatrics, the Academy of Medicine, and the [place] College of Obstetricians and Gynecologists advise that [...] see the MotherToBaby fact sheet Paternal Exposures and at https://mothertobaby.org/fact-she ets/yaydouuc-tyjisgbya-kwxmukkoo/ pdf/. From [facility]'s Tobacco Cessation website: Our comprehensive [...] help you with your financial plan. Contact [phone] for more information. [place] Tobacco Program Visit https://[place].quitlogix.org/en-US/ or call 4-368-FEHH-NOW How SMOKING Affects Your and Your Baby [...] and are at higher risk for sudden syndrome (SIDS). What happens if I keep [...] the fetus (as well as to the infant who is ). Therefore, these and any [...] smoke. (This information is provided by the [facility] and is not intended to replace the medical advice of your doctor or health care provider. Please consult your health care provider for advice about a specific medical condition. For additional written health information, please call the Cancer Answer Line at [facility] [place] Wednesday - Wednesday 8-4:30 for assistance: [phone]. Or visit www.[facility].org/health/) documented in this encounter [facility] 07-27-2024 Note HNO ID: [id number] Author: RYLEE SCOTT APRN.CNP Service: ? Author Type: Nurse Practitioner Type: Progress Notes Filed: 08/02/2024 11:39 Note Text: Cell Phone Repair Technician offered: Patient declines. INITIAL OB ASSESSMENT HPI: [...] harming myself h (more content not included)... [facility] 07-27-2024 History of Present illness Narrative Images from the original note were not included. Cell Phone Repair Technician offered: Patient declines. INITIAL OB ASSESSMENT HPI: [...] harming myself has occurred to me. 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 02/2020 1:4 titer, repeat 4 weeks. Patient reports FOB in halfway so cannot test him. Wendi Robb MD 03/31/16: titer is 4. Repeat titer in 4 wks. 01/09/16 - titer is 8, needs repeat titer 4 weeks, consider FOB testing - KJ February 10, 2016 Follow titers q 4 weeks, needs growth scan q [address] Hearn US report from 02/05. 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 Wendi Robb MD PAST SURGICAL HISTORY Procedure Laterality Date COLPOSCOPY 2018 while incarcerated FINGER SURGERY HX d/t MRSA Current Outpatient Medications Medication Sig Dispense Refill vit 73-zabi-xjqnj-dha (SELECT-OB+DHA) 29 mg iron-1 mg -250 mg [...] discussed with the Patient or Patient's Authorized Parts Representative. As applicable, any other physician, advance practice provider, medical student, or other health professional student that will be observing or involved in the sensitive examination for educational or training purposes was discussed with the Patient or Authorized Parts Representative. The Patient or Authorized Parts Representative has agreed to proceed with the sensitive [...] intrauterine and positive cardiac activity SBIRT Calin Diaseugenia Lesia was given the 4P's screening tool. Calin [...] plus performing a brief intervention. Rylee Scott APRN.ELECTRICAL WIRER ASSESSMENT: 29 year old at 6w2d wks gestational age PLAN: 1) Patient oriented to practice. Patient given new OB orientation folder. Discussed nutrition, folic acid supplementation, dietary guidelines, exercise, smoking, alcohol, caffeine, and drug use. Discussed gestational weight gain guidelines. Discussed routine OB labs including STD/HIV. Discussed how to access Your guide to a health and the Check Services Clerk. Discussed hemoglobin electrophoresis. Patient: Declines Reviewed midwifery and catcher plug services that are available. Reviewed [employer] program. Patient declines referral at this time. [...] vaccine [] declined [] RSV vaccine 32 0/7 - 36 02/10 (May - Oct) [] declined [] COVID vaccine [] declined [] TDaP -36 [] declined First trimester: [x] Dating US [...] weeks): [] Consent [] Contraception - [] Life Science Technician Third trimester (36-40 weeks): [] GBS [] Presentation - [] Scheduled [] yes - Hibiclens, pre-op instructions, CBC, T&S ordered [] no [] H&P Anti-E Isoimmunization Affecting in Second Trimester - 01/09/2016 Comment: April 28, 2022 05/24/22 Still 1:4. 02/2020 1:4 titer, repeat 4 weeks. Patient reports FOB in halfway so cannot test him. Wendi Robb MD 03/31/16: titer is 4. Repeat titer in 4 wks. 01/09/16 - titer is 8, needs repeat titer 4 weeks, consider FOB testing - KJ February 10, 2016 Follow titers q 4 weeks, needs growth scan q [address] Hearn US report from 02/05. Wendi Robb MD Tobacco Smoking Complicating in First Trimester - 04/29/2016 Comment: August 02, 2024 Recommend cessation. Risks reviewed. Written info provided. I spent 5 minutes counseling patient on risks, recommending cessation, and providing resources for cessation. Ryleelarisa Scott APRN.CNP Marijuana Use During - 08/02/2024 Comment: August 02, 2024 Risks reviewed, cessation encouraged. Written information provided. Rylee Scott APRN.CNP History of Drug Abuse (Hcc) - 01/02/2022 [...] using. other than some THC at times. Wendi Robb MD History of Hepatitis C - 08/02/2024 Comment: 201. CMP ordered. Rylee cSott APRN.CNP History of Herpes Genitalis - 08/02/2024 Comment: August 02, 2024 Plan for suppression therapy at 36 weeks. Rylee Scott APRN.CNP History of Trichomoniasis - 08/02/2024 History of Chlamydia - 01/09/2016 History of Trauma - 08/02/2024 Comment: Declines [employer] program. Rylee Scott APRN.CNP Depression - 02/16/2023 [...] past but it was mandated through the halfway and she stopped counseling since she has been out for about a year. She states she occasionally meets with her refinery operator vapor recovery unit. Mental health resources provided. To update throughout . Rylee Scott APRN.CNP Family History of Congenital Heart Defect - 08/02/2024 Comment: August 02, 2024 Father the baby's half-sister born with a heart valve issue and had surgical correction at 3 months of age. Rylee Scott APRN.CNP History of Miscarriage - 08/02/2024 History of Blood Transfusion Comment: 2015, hemorrhaged after. 2 units of blood. Rylee Scott APRN.CNP Nausea and Vomiting During - 08/02/2024 Comment: August 02, 2024 Vitamin B6 and Unisom doses reviewed. To notify if prescription is needed. Rylee Scott APRN.CNP Follow up in 4 weeks or sooner prn. Plan for NT scan between 12w0d and 13w6d gestation. Rylee Scott APRN.CNP documented in this encounter [facility] 07-25-2024 Telephone encounter Note Patient called back and scheduled for 9:30am phone call on 07/27 with Terrie. Ana Jones RN [facility] 07-25-2024 Miscellaneous Notes Patient called back and scheduled for 9:30am phone call on 07/27 with Terrie. Ana Jones RN Left message for patient to return phone call to complete nurse intake questions for her upcoming appointment. Patient has an appointment with Rylee Scott for NOB appointment. I am available on 07/27 or you can transfer to [facility] documented in this encounter [facility] 07-25-2024 Telephone encounter Note Left message for patient to return phone call to complete nurse intake questions for her upcoming appointment. Patient has an appointment with Rylee Scott for NOB appointment. I am available on 07/27 or you can transfer to [facility] 07-05-2024 Note HNO ID: [id number] Author: GRICELDA PEPPER APRN.CNP Service: ? Author Type: Nurse Practitioner Type: Progress Notes Filed: 07/05/2024 10:01 Note Text: This note was created using BrainMass. Subjective Calin Graf is a 29 year [...] - BENZONATATE 100 MG CAPSULE Gricelda Pepper APRN.ELECTRICAL WIRER [facility] 07-05-2024 History of Present illness Narrative This note was created using BrainMass. Subjective Calin Graf is a 29 year [...] Gricelda Pepper APRN.CNP documented in this encounter [facility] 03-15-2024 Telephone encounter Note Done. [facility] 03-15-2024 Miscellaneous Notes Done. She also needs to schedule a follow-up/physical. Maria Guadalupe Rivers APRN.CNP Patient here at office requesting a letter in able to receive a new social security card. Letter must have name, , and OV within the last 2 years. ADELA: 02/16/2023 with Maria Guadalupe Rivers. Patient is wanting to wait and take letter today if possible. Please review and advise. documented in this encounter [facility] 03-15-2024 Telephone encounter Note She also needs to schedule a follow-up/physical. Maria Guadalupe Rivers APRN.ELECTRICAL WIRER [facility] 03-15-2024 Telephone encounter Note Patient here at office requesting a letter in able to receive a new social security card. Letter must have name, , and OV within the last 2 years. ADELA: 02/16/2023 with Maria Guadalupe Rivers. Patient is wanting to wait and take letter today if possible. Please review and advise. [facility] 10-14-2023 History of Present illness Narrative This note was created using [employer]. Subjective Calin Graf is a 28 year [...] repeat 4 weeks. Patient reports FOB in halfway so cannot test him. Wendi Robb MD 03/31/16: titer is 4. Repeat titer in 4 wks. 01/09/16 - titer is 8, needs repeat titer 4 weeks, consider FOB testing - February 10, 2016 Follow titers q 4 weeks, needs growth scan q [address] Hearn US report from 02/05. 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 Wendi Robb MD PAST SURGICAL HISTORY Procedure Laterality [...] swab for COVID/influenza/rsv Andreea Nuñez TEACHING PROVIDER (Physician/PA/DIRECTOR OF CASINO MARKETING) NOTE OF PERSONAL INVOLVEMENT IN CARE: I have personally seen and examined the patient and performed the medical decision-making components. I have reviewed the Advanced Practice Registered Nurse (DIRECTOR OF CASINO MARKETING) Student's documentation and verified the findings in the note as written. Any additions or changes are noted in bold/italics. Signature: Lorena Singh Date: 10/14/2023 Time: 9:13 AM documented in this encounter [facility] 08-04-2023 History of Present illness Narrative This note was created using Strikinglyriter. Subjective Calin Graf is a 28 year [...] She denies any fevers. States that her infant was recently sick with viral illness. No known exposure to COVID. No other complaint. 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 02/2020 1:4 titer, repeat 4 weeks. Patient reports FOB in halfway so cannot test him. Wendi Robb MD 03/31/16: titer is 4. Repeat titer in 4 wks. 01/09/16 - titer is 8, needs repeat titer 4 weeks, consider FOB testing - KJ February 10, 2016 Follow titers q 4 weeks, needs growth scan q [address] Hearn US report from 02/05. 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 Wendi Robb MD PAST SURGICAL HISTORY Procedure Laterality [...] evaluation. WELLINGTON Schneider documented in this encounter [facility] 01-20-2023 Miscellaneous Notes Reason: Patient calling with concerns on what medication she can take for a headache while taking medications prescribed my her director product management. Outcome: Patient offered triage and patient declined Conferenced to [facility] for further advisement. GO TO THE EMERGENCY ROOM OR CALL 911 IF: * You develop any new symptoms If you have any questions, you can call Nurse superintendent plant protection back. documented in this encounter [facility] 01-08-2023 Miscellaneous Notes ok to schedule. Thanks. Wendi Robb MD See ShoutNowt message from earlier today. Pt is wanting to discuss Nexplanon. Message left about scheduling appt. Tonya Michelle LPN Patient viewed [employer] message that a new control medication was [...] would rather stay with OCP if possible. Ana Jones RN documented in this encounter [facility] 01-07-2023 Miscellaneous Notes Pt notified of reason for medication change. Tonya Michelle LPN documented in this encounter [facility] 01-05-2023 Miscellaneous Notes Approved through Medicaid for [...] Sarai Sanches CMA documented in this encounter [facility] 12-23-2022 Miscellaneous Notes 2nd request to patient to obtain card copy with [employer], to submit for Hep C tx Sarai Sanches CMA documented in this encounter [facility] 12-02-2022 Miscellaneous Notes Last seen 09/09/22. PCP appointment to establish is not until February. Requested Prescriptions Pending Prescriptions Disp Refills escitalopram oxalate (LEXAPRO) 10 mg tablet 30 tablet 1 Sig: Take 1 tablet by mouth once daily. Lachelle Bean RN documented in this encounter [facility] 11-27-2022 History of Present illness Narrative Patient [...] of stage 4 fibrosis (cirrhosis). Rema Kumar, PA-C Hepatitis C Fibroscan Fibrosis Risk <7 kPA [...] Int J Clin Exp Med. 2015 Jun 15;8(10):19868-27. PMID: 41568144; PMCID: [id number]. Ana M, David VON, Demetrice M, Constance F, Lukasz J, Chester O, Jenae F, Yuliana M, Maverick G, Jones A, Josiah E, Judd L, Korin G, Fernando A, Vianney U, Vera S, Lauren P, José Luis V, Porter V, Beena Harris, Michelle LONG. Refining the Baveno elastography criteria for the definition of compensated advanced chronic liver disease. J Hepatol. 2020;74(5):2469-6944. doi: 10.1016/j.jhep.2020.11.050. Epub 2019Aug 14. PMID: 95001943. documented in this encounter [facility] 10-27-2022 History of Present illness Narrative Radiology [...] 2022 1:10 PM documented in this encounter [facility] 09-09-2022 History of Present illness Narrative VISIT Calin Graf is a 27 year old year old here for visit. Delivery Summary: ROS/ Recovery: Feeding: Bottle feeding problems: n/a Menses since delivery: light flow Menstrual pattern prior to : Regular periods [place] since delivery: Not resumed Depression: denies symptoms [...] History of chlamydia 01/09/2016 05/01/16 Neg GC/chlamydia MH 01/13/16: positive chlamydia, treated and recheck 2 months. MH 01/09/16 - needs 3rd trimester screening - KJ HSV infection 01/13/2022 Marijuana smoker Tourette's disorder Trichomoniasis 01/09/2016 01/09/16 - needs JENNY & 3rd trimester screening - KJ April 29, 2016 Still positive, retreat. Wendi Robb MD PAST SURGICAL HISTORY Procedure Laterality [...] external genitalia normal, normal Bartholin's glands, urethra, [place]'s glands, no vulvar lesions, no cervical lesions, [...] STI screen today- moderate blood in vault. Wendi Robb MD documented in this encounter [facility] 08-12-2022 History of Present illness Narrative EARLY [...] visit and as needed Medical Decision Making Wendi Robb MD documented in this encounter [facility] 08-06-2022 History of Present illness Narrative Patient delivered via by Dr. Robb on 08/05/22 at [facility]. See OB history. Ana Jones RN documented in this encounter [facility] 07-29-2022 Miscellaneous Notes RR- VB No. LOF [...] titer. Consent signed BPP reassuring today . Wendi Robb M.D. documented in this encounter [facility] 07-29-2022 Instructions Beckie Duque MA - 07/29/2022 3:14 PM EST SEQUENTIAL SCREENINGS The [facility] offers sequential screenings for women who are [...] It will require an appointment with our electro mechanical solar technician. This is not an ultrasound performed [...] the above symptoms, contact our office at [phone] and ask to speak with a nurse. After hours, you can call doctors registry at [phone] OR call [facility] at [phone] and ask to have the doctor principal consultant paged. If you consider this an emergency, dial 9-1-7 or go to your nearest emergency department. NEED HELP? Are you dealing with a violent or abusive relationship? Are you a victim of rape or sexual assult? Call [facility] ([place]) 24 hour Crisis Hotline: 458.846.8762 or 558-684-3353. MANUAL Your Guide to a Healthy manual is now on-line. Visit [email or web address] ncyGuide to download your free copy documented in this encounter [facility] 07-21-2022 Miscellaneous Notes KJ - VB No. [...] Alfredo Benitez MD documented in this encounter [facility] 07-21-2022 Gracy Hackett Ma - 07/21/2022 8:59 AM EST SEQUENTIAL SCREENINGS The [facility] offers sequential screenings for women who are [...] It will require an appointment with our electro mechanical solar technician. This is not an ultrasound performed [...] the above symptoms, contact our office at [phone] and ask to speak with a nurse. After hours, you can call [employer] registry at [phone] OR call [facility] at [phone] and ask to have the doctor principal consultant paged. If you consider this an emergency, dial 2-7-8 or go to your nearest emergency department. NEED HELP? Are you dealing with a violent or abusive relationship? Are you a victim of rape or sexual assult? Call [facility] ([place]) 24 hour Crisis Hotline: 251.235.2829 or 329-539-3666. MANUAL Your Guide to a Healthy manual is now on-line. Visit [email or web address] ncyGuide to download your free copy documented in this encounter [facility] 07-07-2022 Miscellaneous Notes RR- VB No. LOF [...] prn tob use- stopped and using patches. Wendi Robb M.D. documented in this encounter [facility] 07-07-2022 Instructions Sumi Buckner Ma - 07/07/2022 9:30 AM EDT SEQUENTIAL SCREENINGS The [facility] offers sequential screenings for women who are [...] It will require an appointment with our electro mechanical solar technician. This is not an ultrasound performed [...] the above symptoms, contact our office at [phone] and ask to speak with a nurse. After hours, you can call doctors registry at [phone] OR call [facility] at [phone] and ask to have the doctor principal consultant paged. If you consider this an emergency, dial 9-1-9 or go to your nearest emergency department. NEED HELP? Are you dealing with a violent or abusive relationship? Are you a victim of rape or sexual assult? Call [facility] ([facility] 24 hour Crisis Hotline: 412.581.7337 or 725-259-4573. MANUAL Your Guide to a Healthy manual is now on-line. Visit [email or web address] ncyGuide to download your free copy documented in this encounter [facility] 06-26-2022 Miscellaneous Notes Utrasound reviewed. No abnormalities identified. Follow up as clinically indicated. Please place copy in ob chart. Wendi Robb MD documented in this encounter [facility] 06-26-2022 Miscellaneous Notes Addended by: WENDI ROBB on: 06/26/2022 02:20 PM Modules accepted: Orders Addended by: SUMI BUCKNER MA on: 06/26/2022 02:17 PM Modules accepted: Orders Addended by: WENDI ROBB on: 06/26/2022 01:56 PM Modules accepted: [...] for growth today Tob use- cut back. Wendi Robb M.D. documented in this encounter [facility] 06-26-2022 Instructions Sumi Buckner Ma - 06/26/2022 1:45 PM EDT SEQUENTIAL SCREENINGS The [facility] offers sequential screenings for women who are [...] It will require an appointment with our electro mechanical solar technician. This is not an ultrasound performed [...] the above symptoms, contact our office at [phone] and ask to speak with a nurse. After hours, you can call doctors registry at [phone] OR call [facility] at [phone] and ask to have the doctor principal consultant paged. If you consider this an emergency,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 01/09/16 - needs 3rd trimester screening - KJ Trichomoniasis 01/09/2016 01/02/2022 Overview: 01/09/16 - needs [facility] & 3rd trimester screening - KJ April 29, 2016 Still positive, retreat. Wendi Robb MD Late care affecting 6 01/02/2022 Overview: 01/09/16 - EDC slightly different based on dating US but less than 2 weeks so will not change EDC, plan for repeat US in 4 weeks - KJ 01/06/2016Pt is approximately 21 weeks . She has not had care prior to today. Pt is in alf and and due to get out in [...] PRN problems. Ultrasound ordered by Sylvie Champion DIGITAL PHOTO PRINTER.TKRN Quit smoking 01/06/2016 04/29/2016 Overview: 03/27/16: pt still smoking cigarettes 01/06/2016Pt recently quit smoking 12/24/2015. 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 Wendi Robb MD Late care affecting 6 01/02/2022 Overview: 01/09/16 - EDC slightly different based on dating US but less than 2 weeks so will not change EDC, plan for repeat US in 4 weeks - KJ 01/06/2016Pt is approximately 21 weeks . She has not had care prior to today. Pt is in alf and and due to get out in [...] PRN problems. Ultrasound ordered by Sylvie Champion DIGITAL PHOTO PRINTER.TKRN Quit smoking 01/06/2016 04/29/2016 Overview: 03/27/16: pt still smoking cigarettes 01/06/2016Pt recently quit smoking 12/24/2015. 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 Wendi Robb MD Late care affecting 6 01/02/2022 Overview: 01/09/16 - EDC slightly different based on dating US but less than 2 weeks so will not change EDC, plan for repeat US in 4 weeks - KJ 01/06/2016Pt is approximately 21 weeks . She has not had care prior to today. Pt is in alf and and due to get out in [...] PRN problems. Ultrasound ordered by Sylvie Champion DIGITAL PHOTO PRINTER.TKRN Quit smoking 01/06/2016 04/29/2016 Overview: 03/27/16: pt still smoking cigarettes 01/06/2016Pt recently quit smoking 12/24/2015. 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 Wendi Robb MD Late care affecting 6 01/02/2022 Overview: 01/09/16 - EDC slightly different based on dating US but less than 2 weeks so will not change EDC, plan for repeat US in 4 weeks - KJ 01/06/2016Pt is approximately 21 weeks . She has not had care prior to today. Pt is in alf and and due to get out in [...] PRN problems. Ultrasound ordered by Sylvie Champion DIGITAL PHOTO PRINTER.TKRN Quit smoking 01/06/2016 04/29/2016 Overview: 03/27/16: pt still smoking cigarettes 01/06/2016Pt recently quit smoking 12/24/2015. 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 Wendi Robb MD Late care affecting 6 01/02/2022 Overview: 01/09/16 - EDC slightly different based on dating US but less than 2 weeks so will not change EDC, plan for repeat US in 4 weeks - KJ 01/06/2016Pt is approximately 21 weeks . She has not had care prior to today. Pt is in alf and and due to get out in [...] PRN problems. Ultrasound ordered by Sylvie Champion [employer].TKRN Quit smoking 01/06/2016 04/29/2016 Overview: 03/27/16: pt still smoking cigarettes 01/06/2016Pt recently quit smoking 12/24/2015. 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 Wendi Robb MD Late care affecting 6 01/02/2022 Overview: 01/09/16 - EDC slightly different based on dating US but less than 2 weeks so will not change EDC, plan for repeat US in 4 weeks - KJ 01/06/2016Pt is approximately 21 weeks . She has not had care prior to today. Pt is in alf and and due to get out in [...] PRN problems. Ultrasound ordered by Sylvie Champion [employer].TKRN Quit smoking 01/06/2016 04/29/2016 Overview: 03/27/16: pt still smoking cigarettes 01/06/2016Pt recently quit smoking 12/24/2015. 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 Wendi Robb MD Late care affecting 6 01/02/2022 Overview: 01/09/16 - EDC slightly different based on dating US but less than 2 weeks so will not change EDC, plan for repeat US in 4 weeks - KJ 01/06/2016Pt is approximately 21 weeks . She has not had care prior to today. 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 Wendi Robb MD Late care affecting 6 01/02/2022 Overview: 01/09/16 - EDC slightly different based on dating US but less than 2 weeks so will not change EDC, plan for repeat US in 4 weeks - KJ 01/06/2016Pt is approximately 21 weeks . She has not had care prior to today. Pt is in alf and and due to get out in [...] PRN problems. Ultrasound ordered by Sylvie Champion [employer].TKRN Quit smoking 01/06/2016 04/29/2016 Overview: 03/27/16: pt still smoking cigarettes 01/06/2016Pt recently quit smoking 12/24/2015. 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 MH 01/09/16 - needs 3rd trimester screening - Trichomoniasis 01/09/2016 01/02/2022 Overview: 01/09/16 - needs [facility] & 3rd trimester screening - KJ April 29, 2016 Still positive, retreat. Wendi Robb MD Late care affecting 6 01/02/2022 Overview: 01/09/16 - EDC slightly different based on dating US but less than 2 weeks so will not change EDC, plan for repeat US in 4 weeks - KJ 01/06/2016Pt is approximately 21 weeks . She has not had care prior to today. Pt is in alf and and due to get out in [...] PRN problems. Ultrasound ordered by Sylvie Champion [employer].TKRN Quit smoking 01/06/2016 04/29/2016 Overview: 03/27/16: pt still smoking cigarettes 01/06/2016Pt recently quit smoking 12/24/2015. 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 01/09/16 - needs 3rd trimester screening - KJ Trichomoniasis 01/09/2016 01/02/2022 Overview: 01/09/16 - needs [facility] & 3rd trimester screening - KJ April 29, 2016 Still positive, retreat. Wendi Robb MD Late care affecting 6 01/02/2022 Overview: 01/09/16 - EDC slightly different based on dating US but less than 2 weeks so will not change EDC, plan for repeat US in 4 weeks - KJ 01/06/2016Pt is approximately 21 weeks . She has not had care prior to today. Pt is in alf and and due to get out in [...] PRN problems. Ultrasound ordered by Sylvie Champion [employer].TKRN Quit smoking 01/06/2016 04/29/2016 Overview: 03/27/16: pt still smoking cigarettes 01/06/2016Pt recently quit smoking 12/24/2015. 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 01/09/16 - needs 3rd trimester screening - KJ Trichomoniasis 01/09/2016 01/02/2022 Overview: 01/09/16 - needs [facility] & 3rd trimester screening - KJ April 29, 2016 Still positive, retreat. Wendi Robb MD Late care affecting 6 01/02/2022 Overview: 01/09/16 - EDC slightly different based on dating US but less than 2 weeks so will not change EDC, plan for repeat US in 4 weeks - KJ 01/06/2016Pt is approximately 21 weeks . She has not had care prior to today. Pt is in alf and and due to get out in [...] PRN problems. Ultrasound ordered by Sylvie Champion [employer].TKRN Quit smoking 01/06/2016 04/29/2016 Overview: 03/27/16: pt still smoking cigarettes 01/06/2016Pt recently quit smoking 12/24/2015. 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 MH 01/09/16 - needs 3rd trimester screening - KJ Trichomoniasis 01/09/2016 01/02/2022 Overview: 01/09/16 - needs [facility] & 3rd trimester screening - KJ April 29, 2016 Still positive, retreat. Wendi Robb MD Late care affecting 6 01/02/2022 Overview: 01/09/16 - EDC slightly different based on dating US but less than 2 weeks so will not change EDC, plan for repeat US in 4 weeks - KJ 01/06/2016Pt is approximately 21 weeks . She has not had care prior to today. Pt is in alf and and due to get out in [...] PRN problems. Ultrasound ordered by Sylvie Champion [employer].TKRN Quit smoking 01/06/2016 04/29/2016 Overview: 03/27/16: pt still smoking cigarettes 01/06/2016Pt recently quit smoking 12/24/2015. 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 MH 01/09/16 - needs 3rd trimester screening - KJ Trichomoniasis 01/09/2016 01/02/2022 Overview: 01/09/16 - needs [facility] & 3rd trimester screening - KJ April 29, 2016 Still positive, retreat. Wendi Robb MD Late care affecting 6 01/02/2022 Overview: 01/09/16 - EDC slightly different based on dating US but less than 2 weeks so will not change EDC, plan for repeat US in 4 weeks - KJ 01/06/2016Pt is approximately 21 weeks . She has not had care prior to today. Pt is in alf and and due to get out in [...] PRN problems. Ultrasound ordered by Sylvie Champion [employer].TKRN Quit smoking 01/06/2016 04/29/2016 Overview: 03/27/16: pt still smoking cigarettes 01/06/2016Pt recently quit smoking 12/24/2015. 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 Wendi Robb MD Late care affecting 6 01/02/2022 Overview: 01/09/16 - EDC slightly different based on dating US but less than 2 weeks so will not change EDC, plan for repeat US in 4 weeks - KJ 01/06/2016Pt is approximately 21 weeks . She has not had care prior to today. 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 01/09/16 - needs 3rd trimester screening - KJ Trichomoniasis 01/09/2016 01/02/2022 Overview: 01/09/16 - needs [facility] & 3rd trimester screening - KJ April 29, 2016 Still positive, retreat. Wendi Robb MD Late care affecting 6 01/02/2022 Overview: 01/09/16 - EDC slightly different based on dating US but less than 2 weeks so will not change EDC, plan for repeat US in 4 weeks - KJ 01/06/2016Pt is approximately 21 weeks . She has not had care prior to today. 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 Wendi Robb MD Late care affecting 6 01/02/2022 Overview: 01/09/16 - EDC slightly different based on dating US but less than 2 weeks so will not change EDC, plan for repeat US in 4 weeks - KJ 01/06/2016Pt is approximately 21 weeks . She has not had care prior to today. Pt is in alf and and due to get out in [...] PRN problems. Ultrasound ordered by Sylvie Champion [employer].TKRN Quit smoking 01/06/2016 04/29/2016 Overview: 03/27/16: pt still smoking cigarettes 01/06/2016Pt recently quit smoking 12/24/2015. 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 Wendi Robb MD Late care affecting 6 01/02/2022 Overview: 01/09/16 - EDC slightly different based on dating US but less than 2 weeks so will not change EDC, plan for repeat US in 4 weeks - KJ 01/06/2016Pt is approximately 21 weeks . She has not had care prior to today. Pt is in alf and and due to get out in [...] PRN problems. Ultrasound ordered by Sylvie Champion [employer].TKRN Quit smoking 01/06/2016 04/29/2016 Overview: 03/27/16: pt still smoking cigarettes 01/06/2016Pt recently quit smoking 12/24/2015. 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 01/09/16 - needs 3rd trimester screening - KJ Trichomoniasis 01/09/2016 01/02/2022 Overview: 01/09/16 - needs [facility] & 3rd trimester screening - KJ April 29, 2016 Still positive, retreat. Wendi Robb MD Late care affecting 6 01/02/2022 Overview: 01/09/16 - EDC slightly different based on dating US but less than 2 weeks so will not change EDC, plan for repeat US in 4 weeks - KJ 01/06/2016Pt is approximately 21 weeks . She has not had care prior to today. Pt is in alf and and due to get out in [...] PRN problems. Ultrasound ordered by Sylvie Champion [employer].TKRN Quit smoking 01/06/2016 04/29/2016 Overview: 03/27/16: pt still smoking cigarettes 01/06/2016Pt recently quit smoking 12/24/2015. 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 Wendi Robb MD Late care affecting 6 01/02/2022 Overview: 01/09/16 - EDC slightly different based on dating US but less than 2 weeks so will not change EDC, plan for repeat US in 4 weeks - KJ 01/06/2016Pt is approximately 21 weeks . She has not had care prior to today. Pt is in alf and and due to get out in [...] PRN problems. Ultrasound ordered by Sylvie Champion [employer].TKRN Quit smoking 01/06/2016 04/29/2016 Overview: 03/27/16: pt still smoking cigarettes 01/06/2016Pt recently quit smoking 12/24/2015. 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 01/09/16 - needs 3rd trimester screening - KJ Trichomoniasis 01/09/2016 01/02/2022 Overview: 01/09/16 - needs [facility] & 3rd trimester screening - KJ April 29, 2016 Still positive, retreat. Wendi Robb MD Late care affecting 6 01/02/2022 Overview: 01/09/16 - EDC slightly different based on dating US but less than 2 weeks so will not change EDC, plan for repeat US in 4 weeks - KJ 01/06/2016Pt is approximately 21 weeks . She has not had care prior to today. 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 MH 01/09/16 - needs 3rd trimester screening - KJ Trichomoniasis 01/09/2016 01/02/2022 Overview: 01/09/16 - needs [facility] & 3rd trimester screening - KJ April 29, 2016 Still positive, retreat. Wendi Robb MD Late care affecting 6 01/02/2022 Overview: 01/09/16 - EDC slightly different based on dating US but less than 2 weeks so will not change EDC, plan for repeat US in 4 weeks - KJ 01/06/2016Pt is approximately 21 weeks . She has not had care prior to today. Pt is in alf and and due to get out in [...] PRN problems. Ultrasound ordered by Sylvie Champion [employer].TKRN Quit smoking 01/06/2016 04/29/2016 Overview: 03/27/16: pt still smoking cigarettes 01/06/2016Pt recently quit smoking 12/24/2015. 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 MH 01/09/16 - needs 3rd trimester screening - KJ Trichomoniasis 01/09/2016 01/02/2022 Overview: 01/09/16 - needs [facility] & 3rd trimester screening - KJ April 29, 2016 Still positive, retreat. Wendi Robb MD Late care affecting 6 01/02/2022 Overview: 01/09/16 - EDC slightly different based on dating US but less than 2 weeks so will not change EDC, plan for repeat US in 4 weeks - KJ 01/06/2016Pt is approximately 21 weeks . She has not had care prior to today. Pt is in alf and and due to get out in [...] of this encounter (statuses as of 08/12/2022) [facility] History of Past illness Narrative* Problem Noted Date Resolved Date Chlamydia infection, current 6 01/14/2016 Overview: 01/14/16 - needs JENNY & 3rd trimester screening - KJ Quit smoking 01/06/2016 04/29/2016 Overview: 03/27/16: pt still smoking cigarettes 01/06/2016Pt recently quit smoking 12/24/2015. Discussed risks of smoking during and advised pt to continue not smoking.TKRN documented as of this encounter (statuses as of 12/23/2021) [facility]05-10-2016 History of Past illness Narrative* Problem Noted Date Resolved Date Chlamydia infection, current 6 01/14/2016 Overview: 01/14/16 - needs JENNY & 3rd trimester screening - KJ Quit smoking 01/06/2016 04/29/2016 Overview: 03/27/16: pt still smoking cigarettes 01/06/2016Pt recently quit smoking 12/24/2015. Discussed risks of smoking during and advised pt to continue not smoking.TKRN documented as of this encounter (statuses as of 01/01/2022) [facility] noteNo assessment information availableWMercy [facility] Work Phone: Evaluation note* Diagnosis Encounter [...] drug abuse, unspecified [facility] Diagnosis Encounter for supervision of normal in multigravida in first trimester- Primary Uncertain dates, antepartum, first trimester Gonorrhea affecting in first trimester Screen for STD (sexually transmitted disease) Screening examination for venereal disease [facility]* Diagnosis Screen for STD (sexually transmitted disease)- Primary Screening examination for venereal disease 13 weeks gestation of state, incidental Drug use disorder Other, mixed, or unspecified nondependent drug abuse, unspecified Supervision of other high risk pregnancies, first trimester Viral hepatitis complicating , second trimester Encounter for screening of mother Unspecified screening [facility] Diagnosis Encounter for (NT) nuchal translucency scan- Primary Other specified screening 13 weeks gestation of state, incidental [facility] Diagnosis 17 weeks gestation of - Primary state, incidental High-risk in second trimester 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, single or unspecified fetus [facility] Diagnosis Encounter for anatomic survey- Primary 19 weeks gestation of state, incidental [facility] Diagnosis High-risk in second trimester- Primary 22 weeks gestation of state, incidental 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, single or unspecified fetus [facility]* Diagnosis Onset Date Resolution Status Encounter for screening labo ratory testing for COVID-19 virus acute [facility] Work Phone: Evaluation note* Diagnosis 27 weeks gestation of - Primary state, incidental 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, single or unspecified fetus High-risk in second trimester Need for Tdap vaccination Need for prophylactic vaccination with combined ymsktqztlo-[id number] (DTP) vaccine [facility] Diagnosis 29 weeks gestation of - Primary state, incidental Supervision of high risk in third trimester Unspecified high-risk 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, single or unspecified fetus [facility] Diagnosis Supervision of high risk in third trimester- Primary Unspecified high-risk 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, single or unspecified fetus 31 weeks gestation of state, incidental [facility] Diagnosis 31 weeks gestation of - Primary state, incidental High-risk in third trimester 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, single or unspecified fetus Chronic hepatitis C without hepatic coma (HCC) Chronic hepatitis C without mention of hepatic coma [facility] Diagnosis Uterine size-date discrepancy, third trimester [O26.843 (ICD-10-CM)]- Primary 29 weeks gestation of state, incidental Supervision of high risk in third trimester Unspecified high-risk 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, single or unspecified fetus 31 weeks gestation of state, incidental [facility] Diagnosis 33 weeks gestation of - Primary state, incidental High-risk in third trimester [facility] Diagnosis 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, single or unspecified fetus- Primary High-risk in third trimester 33 weeks gestation of state, incidental [facility] Diagnosis 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, single or unspecified fetus- Primary High-risk in third trimester 34 weeks gestation of state, incidental [facility] Diagnosis 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, single or unspecified fetus- Primary High-risk in third trimester 35 weeks gestation of state, incidental [facility] Diagnosis Supervision of high risk in third trimester- Primary Unspecified high-risk 35 weeks gestation of state, incidental [facility] Diagnosis High-risk in third trimester 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, single or unspecified fetus [facility] Diagnosis 36 weeks gestation of - Primary state, incidental Supervision of high risk in third trimester Unspecified high-risk [facility] Diagnosis 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, single or unspecified fetus- Primary High-risk in third trimester 36 weeks gestation of state, incidental [facility]* Diagnosis Onset Date Resolution Status 31 weeks gestation of acute History of labor acu te Pelvic cramping acute Round ligament pain acute 37 weeks gestation of acute Anti-E isoimmunization affec ting in third trimester acute Hepatitis C, chronic, maternal, antepartum acute High risk multigravida acute (spontaneous vaginal delivery) acute [facility] Work Phone: Evaluation note* Diagnosis Routine follow-up- Primary Chronic active hepatitis (HCC) Other chronic hepatitis [facility] Diagnosis care and examination- Primary Routine follow-up Encounter for BCP ( control pills) initial prescription General counseling for prescription of oral contraceptives [facility]* Diagnosis Chronic hepatitis C without hepatic coma (HCC)- Primary Chronic hepatitis C without mention of hepatic coma [facility]* Diagnosis Chronic hepatitis C without hepatic coma (HCC)- Primary Chronic hepatitis C without mention of hepatic coma [facility]* Diagnosis Chronic hepatitis C with hepatic coma (HCC)- Primary Chronic hepatitis C with hepatic coma Chronic hepatitis C without hepatic coma (HCC) Chronic hepatitis C without mention of hepatic coma [facility]* Diagnosis 31 weeks gestation of state, incidental High-risk in third trimester 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, single or unspecified fetus Chronic hepatitis C without hepatic coma (HCC) Chronic hepatitis C without mention of hepatic coma [facility]* Diagnosis Nexplanon insertion- Primary Insertion of implantable subdermal contraceptive [facility]* Diagnosis Chronic hepatitis C without hepatic coma (HCC) Chronic hepatitis C without mention of hepatic coma [facility]* Diagnosis Sinobronchitis- Primary Unspecified sinusitis (chronic) URI, acute Acute upper respiratory infections of unspecified site [facility]* Diagnosis Upper respiratory tract infection, unspecified type- Primary [facility]* Diagnosis Acute cough- Primary [facility]* Diagnosis Encounter for supervision of high [...] and vomiting during [facility]* Diagnosis Encounter for screening for malformation using ultrasound- Primary 12 weeks gestation of state, incidental Encounter for supervision of high risk in first trimester, antepartum- Primary 12 weeks gestation of state, incidental Nausea and vomiting during 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 Take 1 tablet and 1 capsule by mouth daily. doxylamine-pyridoxine, vit B6, (DICLEGIS) 10-10 mg TbEC; Take 2 tabs at night. If symptoms persist after 2 days add one tab in the morning. If symptoms still persist after 4 days add a tab mid-day * Assessment & Plan Note - Wendi Robb MD - 09/13/2024 1:46 PM EST Associated Problem(s): Nausea and vomiting during Orders: doxylamine-pyridoxine, vit B6, (DICLEGIS) 10-10 mg TbEC; Take 2 tabs at night. If symptoms persist after 2 days add one tab in the morning. 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, single or unspecified fetus Encounter for supervision of high risk in first trimester, antepartum documented in this encounter [facility] note* Diagnosis Encounter for supervision of high risk in first trimester, antepartum- Primary 12 weeks gestation of state, incidental Nausea and vomiting during 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, single or unspecified fetus Encounter for supervision of high risk in first trimester, antepartum- Primary documented in this encounter [facility] note* Diagnosis Encounter for supervision of high risk in first trimester, antepartum- Primary 12 weeks gestation of state, incidental Nausea and vomiting during 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, single or unspecified fetus Bronchopneumonia- Primary Bronchopneumonia, organism unspecified documented in this encounter [facility] note* Diagnosis Encounter for supervision [...] History of depression documented in this encounter [facility] note* Diagnosis Encounter for supervision [...] incidental * Assessment & Plan Note - Wendi Robb MD - 11/08/2024 3:43 PM EST Associated Problem(s): 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 D/w her this MFM consult ordered MCA dopplers q 2 weeks- orders in d/w her may need to deliver at tertiary care center Orders: ANTIBODY SCREEN; Future documented in this encounter [facility] note* Diagnosis Encounter for supervision [...] of state, incidental documented in this encounter [facility] note* Diagnosis Encounter for supervision [...] History of depression [facility] Diagnosis Encounter for supervision of high [...] EDT Associated Problem(s): History of depression 11/22/2024 [facility] Pt reports that her relationship is [...] Family history of congenital heart defect 11/22/2024 [facility] No cardiac concerns identified on US. Lachelle Hickman MD * Assessment & Plan Note - Lachelle Hickman MD - 11/22/2024 4:33 PM EDT Associated Problem(s): History of drug abuse (HCC) 11/22/2024 [facility] Pt reports sobriety for three years. 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 In terms of her anti-E : She has had no prior affected . There is unknown paternal antigen status Her [...] Lachelle Hickman MD [facility] Diagnosis Encounter for supervision of high [...] fetus 5- Primary [facility] Diagnosis Encounter for supervision of high [...] unspecified fetus- Primary [facility] Diagnosis Encounter for supervision of high risk in first trimester, antepartum (HCC)- Primary 12 weeks gestation of (HCC) state, incidental Nausea and vomiting during (HCC) 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, single or unspecified fetus (HCC) Supervision of high risk in second trimester (HCC)- Primary Unspecified high-risk 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, single or unspecified fetus (HCC) 20 weeks gestation of ([facility]) state, incidental Hx of intravenous drug use, [...] Supervision of high risk in second trimester ([facility])- Primary Unspecified high-risk 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, single or unspecified fetus (HCC) Supervision of high risk in second trimester ([facility])- Primary Unspecified high-risk 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, single or unspecified fetus (HCC) 20 weeks gestation of ([facility]) state, incidental Hx of intravenous drug use, in remission- Primary Other, mixed, or unspecified nondependent drug abuse, in remission Maternal care for isoimmunization, second trimester, single gestation ([facility]) 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, single or unspecified fetus (HCC) History of drug abuse ([facility]) Other, mixed, or unspecified nondependent drug abuse, in remission Family history of congenital heart defect Family history of congenital anomalies History of depression Encounter for ultrasound to check growth ([facility])- Primary Encounter for routine screening for malformation using ultrasonics Maternal care for isoimmunization, second trimester, single gestation ([facility]) Supervision of high risk in second trimester ([facility]) Unspecified high-risk 24 weeks gestation of ([facility]) state, incidental Supervision of high risk in second trimester ([facility])- Primary Unspecified high-risk 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, single or unspecified fetus ([facility]) Tobacco smoking complicating in second trimester ([facility]) Tobacco use disorder complicating , childbirth, or the puerperium, antepartum condition or complication 24 weeks gestation of ([facility]) state, incidental 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, single or unspecified fetus ([facility])- Primary [facility] Diagnosis Encounter for supervision of high risk in first trimester, antepartum ([facility])- Primary 12 weeks gestation of ([facility]) state, incidental Nausea and vomiting during ([facility]) 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, single or unspecified fetus ([facility]) Supervision of high risk in second trimester ([facility])- Primary Unspecified high-risk 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, single or unspecified fetus ([facility]) 20 weeks gestation of ([facility]) state, incidental Hx of intravenous drug use, in remission- Primary Other, mixed, or unspecified nondependent drug abuse, in remission Maternal care for isoimmunization, second trimester, single gestation ([facility]) 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 Further planning after antigen status known. Continue MCA dopplers for now. Pt should have an inperson MFM visit at 34-36 weeks for delivery planning. Pt states that her general OB wants her to deliver [place] [facility] as [place] is not idea for an baby affected by isoimmunization. 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) NIPT fetus is E antigen neg so doesn't need to continue dopplers, will cont to do growth scans [facility] Diagnosis Encounter for supervision of high risk in first trimester, antepartum (HCC)- Primary 12 weeks gestation of ([facility]) state, incidental Nausea and vomiting during ([facility]) 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, single or unspecified fetus (HCC) Supervision of high risk in second trimester ([facility])- Primary Unspecified high-risk 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, single or unspecified fetus (HCC) 20 weeks gestation of ([facility]) state, incidental Hx of intravenous drug use, in remission- Primary Other, mixed, or unspecified nondependent drug abuse, in remission Maternal care for isoimmunization, second trimester, single gestation ([facility]) 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, single or unspecified fetus (HCC) History of drug abuse ([facility]) Other, mixed, or unspecified nondependent drug abuse, in remission Family history of congenital heart defect Family history of congenital anomalies History of depression Supervision of high risk in second trimester ([facility])- Primary Unspecified high-risk 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, single or unspecified fetus (HCC) Tobacco smoking complicating in second trimester ([facility]) Tobacco use disorder complicating , childbirth, or the puerperium, antepartum condition or complication 24 weeks gestation of ([facility]) state, incidental 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, single or unspecified fetus (HCC)- Primary Maternal care for isoimmunization, second trimester, single gestation ([facility])- Primary Supervision of high risk in second trimester ([facility]) Unspecified high-risk 26 weeks gestation of ([facility]) state, incidental Supervision of high risk in second trimester ([facility])- Primary Unspecified high-risk 26 weeks gestation of ([facility]) state, incidental 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, single or unspecified fetus (HCC) Tobacco smoking complicating in second trimester ([facility]) Tobacco use disorder complicating , childbirth, or the puerperium, antepartum condition or complication General counseling and advice for contraceptive management Other general counseling and advice for contraceptive management [facility] Diagnosis Encounter for supervision of high risk in first trimester, antepartum ([facility])- Primary 12 weeks gestation of ([facility]) state, incidental Nausea and vomiting during ([facility]) Anti-E isoimmunization affecting in second trimester, single or unspecified fetus (HCC) Supervision of high risk in second trimester ([facility])- Primary Unspecified high-risk 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, single or unspecified fetus ([facility]) 20 weeks gestation of ([facility]) state, incidental Hx of intravenous drug use, in remission- Primary Other, mixed, or unspecified nondependent drug abuse, in remission Maternal care for isoimmunization, second trimester, single gestation ([facility]) 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, single or unspecified fetus (HCC) History of drug abuse ([facility]) Other, mixed, or unspecified nondependent drug abuse, in remission Family history of congenital heart defect Family history of congenital anomalies History of depression 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, second trimester, not applicable or unspecified fetus ([facility])- Primary care, subsequent , second trimester ([facility]) Supervision of high risk in second trimester ([facility])- Primary Unspecified high-risk 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, single or unspecified fetus ([facility]) Tobacco smoking complicating in second trimester ([facility]) Tobacco use disorder complicating , childbirth, or the puerperium, antepartum condition or complication 24 weeks gestation of ([facility]) state, incidental 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, single or unspecified fetus ([facility])- Primary Supervision of high risk in second trimester ([facility])- Primary Unspecified high-risk 26 weeks gestation of ([facility]) state, incidental 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, single or unspecified fetus ([facility]) Tobacco smoking complicating in second trimester ([facility]) Tobacco use disorder complicating , childbirth, or the puerperium, antepartum condition or complication General counseling and advice for contraceptive management Other general counseling and advice for contraceptive management [facility] Encounter for supervision of high risk in first trimester, antepartum ([facility])- Primary 12 weeks gestation of ([facility]) state, incidental Nausea and vomiting during ([facility]) 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, single or unspecified fetus ([facility]) Supervision of high risk in second trimester ([facility])- Primary Unspecified high-risk 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, single or unspecified fetus (HCC) 20 weeks gestation of ([facility]) state, incidental Hx of intravenous drug use, in remission- Primary Other, mixed, or unspecified nondependent drug abuse, in remission Maternal care for isoimmunization, second trimester, single gestation ([facility]) 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, single or unspecified fetus (HCC) History of drug abuse (HCC) Other, mixed, or unspecified nondependent drug abuse, in remission Family history of congenital heart defect Family history of congenital anomalies History of depression Supervision of high risk in second trimester ([facility])- Primary Unspecified high-risk 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, single or unspecified fetus (HCC) Tobacco smoking complicating in second trimester ([facility]) Tobacco use disorder complicating , childbirth, or the puerperium, antepartum condition or complication 24 weeks gestation of ([facility]) state, incidental 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, single or unspecified fetus (HCC)- Primary Supervision of high risk in second trimester ([facility])- Primary Unspecified high-risk 26 weeks gestation of ([facility]) state, incidental 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, single or unspecified fetus (HCC) Tobacco smoking complicating in second trimester ([facility]) Tobacco use disorder complicating , childbirth, or the puerperium, antepartum condition or complication General counseling and advice for contraceptive management Other general counseling and advice for contraceptive management Supervision of high risk due to social problems, third trimester ([facility])- Primary 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, single or unspecified fetus (HCC) 28 weeks gestation of ([facility]) state, incidental Need for vaccination Need for prophylactic vaccination and inoculation against unspecified single disease [facility] Encounter for supervision of high risk in first trimester, antepartum ([facility])- Primary 12 weeks gestation of ([facility]) state, incidental Nausea and vomiting during ([facility]) 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, single or unspecified fetus ([facility]) Maternal care for isoimmunization, second trimester, single gestation ([facility])- Primary Supervision of high risk in second trimester ([facility]) Unspecified high-risk Supervision of high risk in second trimester ([facility])- Primary Unspecified high-risk 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, single or unspecified fetus ([facility]) 20 weeks gestation of ([facility]) state, incidental Maternal care for isoimmunization, second trimester, single gestation ([facility]) Supervision of high risk in second trimester ([facility]) Unspecified high-risk Hx of intravenous drug use, in remission- Primary Other, mixed, or unspecified nondependent drug abuse, in remission Maternal care for isoimmunization, second trimester, single gestation ([facility]) 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, single or unspecified fetus ([facility]) History of drug abuse ([facility]) Other, mixed, or unspecified nondependent drug abuse, in remission Family history of congenital heart defect Family history of congenital anomalies History of depression Encounter for ultrasound to check growth ([facility])- Primary Encounter for routine screening for malformation using ultrasonics Maternal care for isoimmunization, second trimester, single gestation ([facility]) Supervision of high risk in second trimester ([facility]) Unspecified high-risk 24 weeks gestation of ([facility]) state, incidental Supervision of high risk in second trimester ([facility])- Primary Unspecified high-risk 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, single or unspecified fetus ([facility]) Tobacco smoking complicating in second trimester ([facility]) Tobacco use disorder complicating , childbirth, or the puerperium, antepartum condition or complication 24 weeks gestation of ([facility]) state, incidental 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, single or unspecified fetus ([facility])- Primary Maternal care for isoimmunization, second trimester, single gestation ([facility])- Primary Supervision of high risk in second trimester ([facility]) Unspecified high-risk 26 weeks gestation of ([facility]) state, incidental Supervision of high risk in second trimester ([facility])- Primary Unspecified high-risk 26 weeks gestation of ([facility]) state, incidental 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, single or unspecified fetus ([facility]) Tobacco smoking complicating in second trimester ([facility]) Tobacco use disorder complicating , childbirth, or the puerperium, antepartum condition or complication General counseling and advice for contraceptive management Other general counseling and advice for contraceptive management Supervision of high risk due to social problems, third trimester ([facility])- Primary 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, single or unspecified fetus (HCC) 28 weeks gestation of ([facility]) state, incidental Need for vaccination Need for prophylactic vaccination and inoculation against unspecified single disease [facility] Diagnosis Encounter for supervision of high risk in first trimester, antepartum ([facility])- Primary 12 weeks gestation of ([facility]) state, incidental Nausea and vomiting during ([facility]) 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, single or unspecified fetus (HCC) Supervision of high risk in second trimester ([facility])- Primary Unspecified high-risk 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, single or unspecified fetus (HCC) 20 weeks gestation of ([facility]) state, incidental Hx of intravenous drug use, in remission- Primary Other, mixed, or unspecified nondependent drug abuse, in remission Maternal care for isoimmunization, second trimester, single gestation ([facility]) 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, single or unspecified fetus (HCC) History of drug abuse ([facility]) Other, mixed, or unspecified nondependent drug abuse, in remission Family history of congenital heart defect Family history of congenital anomalies History of depression Supervision of high risk in second trimester ([facility])- Primary Unspecified high-risk 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, single or unspecified fetus ([facility]) Tobacco smoking complicating in second trimester ([facility]) Tobacco use disorder complicating , childbirth, or the puerperium, antepartum condition or complication 24 weeks gestation of ([facility]) state, incidental 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, single or unspecified fetus ([facility])- Primary Supervision of high risk in second trimester ([facility])- Primary Unspecified high-risk 26 weeks gestation of ([facility]) state, incidental 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, single or unspecified fetus ([facility]) Tobacco smoking complicating in second trimester ([facility]) Tobacco use disorder complicating , childbirth, or the puerperium, antepartum condition or complication General counseling and advice for contraceptive management Other general counseling and advice for contraceptive management Supervision of high risk due to social problems, third trimester ([facility])- Primary 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, single or unspecified fetus (HCC) 20 weeks gestation of ([facility]) state, incidental Hx of intravenous drug use, in remission- Primary Other, mixed, or unspecified nondependent drug abuse, in remission Maternal care for isoimmunization, second trimester, single gestation ([facility]) 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, single or unspecified fetus (HCC) History of drug abuse (HCC) Other, mixed, or unspecified nondependent drug abuse, in remission Family history of congenital heart defect Family history of congenital anomalies History of depression Supervision of high risk in second trimester ([facility])- Primary Unspecified high-risk 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, single or unspecified fetus (HCC) Tobacco smoking complicating in second trimester (HCC) Tobacco use disorder complicating , childbirth, or the puerperium, antepartum condition or complication 24 weeks gestation of ([facility]) state, incidental 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, single or unspecified fetus (HCC)- Primary Supervision of high risk in second trimester ([facility])- Primary Unspecified high-risk 26 weeks gestation of ([facility]) state, incidental 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, single or unspecified fetus (HCC) Tobacco smoking complicating in second trimester ([facility]) Tobacco use disorder complicating , childbirth, or the puerperium, antepartum condition or complication General counseling and advice for contraceptive management Other general counseling and advice for contraceptive management Supervision of high risk due to social problems, third trimester ([facility])- Primary 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, single or unspecified fetus (HCC) 28 weeks gestation of ([facility]) state, incidental Need for vaccination Need for prophylactic vaccination and inoculation against unspecified single disease Encounter for ultrasound to check growth ([facility])- Primary Encounter for routine screening for malformation using ultrasonics Maternal care for isoimmunization, second trimester, single gestation ([facility]) 30 weeks gestation of ([facility]) state, incidental Supervision of high risk due to social problems, third trimester ([facility])- Primary 30 weeks gestation of ([facility]) state, incidental [facility] Diagnosis Encounter for supervision of high risk in first trimester, antepartum ([facility])- Primary 12 weeks gestation of ([facility]) state, incidental Nausea and vomiting during ([facility]) 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, single or unspecified fetus ([facility]) Supervision of high risk in second trimester ([facility])- Primary Unspecified high-risk 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, single or unspecified fetus (HCC) 20 weeks gestation of ([facility]) state, incidental Hx of intravenous drug use, in remission- Primary Other, mixed, or unspecified nondependent drug abuse, in remission Maternal care for isoimmunization, second trimester, single gestation ([facility]) 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, single or unspecified fetus ([facility]) History of drug abuse ([facility]) Other, mixed, or unspecified nondependent drug abuse, in remission Family history of congenital heart defect Family history of congenital anomalies History of depression Supervision of high risk in second trimester ([facility])- Primary Unspecified high-risk Anti-E isoimmunization affecting in [...] (HCC) * Assessment & Plan Note - Wendi Robb MD - 01/31/2025 11:49 AM EDT Associated Problem(s): Supervision of high risk due to social problems, third trimester (HCC) Orders: URINE OB DIP B/O [facility] Diagnosis Encounter for supervision of high risk in first trimester, antepartum (HCC)- Primary 12 weeks gestation of (HCC) state, incidental Nausea and vomiting during (HCC) 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, single or unspecified fetus (HCC) Supervision of high risk in second trimester (HCC)- Primary Unspecified high-risk 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, single or unspecified fetus (HCC) 20 weeks gestation of ([facility]) state, incidental Hx of intravenous drug use, [...] Supervision of high risk in second trimester ([facility])- Primary Unspecified high-risk 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, single or unspecified fetus (HCC) Tobacco smoking complicating in second trimester ([facility]) Tobacco use disorder complicating , childbirth, or the puerperium, antepartum condition or complication 24 weeks gestation of ([facility]) state, incidental 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, single or unspecified fetus (HCC)- Primary Supervision of high risk in second trimester ([facility])- Primary Unspecified high-risk 26 weeks gestation of ([facility]) state, incidental Anti-E isoimmunization affecting in second trimester, single or unspecified fetus ([facility]) Tobacco smoking complicating in second trimester ([facility]) Tobacco use disorder complicating , childbirth, or the puerperium, antepartum condition or complication General counseling and advice for contraceptive management Other general counseling and advice for contraceptive management Supervision of high risk due to social problems, third trimester ([facility])- Primary 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, single or unspecified fetus (HCC) 28 weeks gestation of ([facility]) state, incidental Need for vaccination Need for prophylactic vaccination and inoculation against unspecified single disease Supervision of high risk due to social problems, third trimester ([facility])- Primary 30 weeks gestation of ([facility]) state, incidental Supervision of high risk due to social problems, third trimester ([facility])- Primary 32 weeks gestation of ([facility]) state, incidental 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, single or unspecified fetus ([facility]) Supervision of high risk due to social problems, third trimester ([facility])- Primary 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, single or unspecified fetus (HCC) 34 weeks gestation of ([facility]) state, incidental [facility] Encounter for supervision of high risk in first trimester, antepartum ([facility])- Primary 12 weeks gestation of ([facility]) state, incidental Nausea and vomiting during ([facility]) 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, single or unspecified fetus (HCC) Supervision of high risk in second trimester ([facility])- Primary Unspecified high-risk 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, single or unspecified fetus (HCC) 20 weeks gestation of ([facility]) state, incidental Hx of intravenous drug use, in remission- Primary Other, mixed, or unspecified nondependent drug abuse, in remission Maternal care for isoimmunization, second trimester, single gestation ([facility]) 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, single or unspecified fetus (HCC) History of drug abuse ([facility]) Other, mixed, or unspecified nondependent drug abuse, in remission Family history of congenital heart defect Family history of congenital anomalies History of depression Supervision of high risk in second trimester ([facility])- Primary Unspecified high-risk 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, single or unspecified fetus (HCC) Tobacco smoking complicating in second trimester ([facility]) Tobacco use disorder complicating , childbirth, or the puerperium, antepartum condition or complication 24 weeks gestation of ([facility]) state, incidental 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, single or unspecified fetus ([facility])- Primary Supervision of high risk in second trimester ([facility])- Primary Unspecified high-risk 26 weeks gestation of ([facility]) state, incidental 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, single or unspecified fetus (HCC) Tobacco smoking complicating in second trimester ([facility]) Tobacco use disorder complicating , childbirth, or the puerperium, antepartum condition or complication General counseling and advice for contraceptive management Other general counseling and advice for contraceptive management Supervision of high risk due to social problems, third trimester ([facility])- Primary 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, single or unspecified fetus (HCC) 28 weeks gestation of ([facility]) state, incidental Need for vaccination Need for prophylactic vaccination and inoculation against unspecified single disease Supervision of high risk due to social problems, third trimester (HCC)- Primary 30 weeks gestation of ([facility]) state, incidental Supervision of high risk due to social problems, third trimester ([facility])- Primary 32 weeks gestation of ([facility]) state, incidental 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, single or unspecified fetus (HCC) 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, single or unspecified fetus (HCC)- Primary Maternal care for isoimmunization, second trimester, single gestation ([facility]) History of hepatitis C Personal history of other infectious and parasitic disease Tobacco smoking complicating in first trimester ([facility]) Tobacco use disorder complicating , childbirth, or the puerperium, antepartum condition or complication [facility] Diagnosis Encounter for supervision of high risk in first trimester, antepartum ([facility])- Primary 12 weeks gestation of ([facility]) state, incidental Nausea and vomiting during ([facility]) 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, single or unspecified fetus ([facility]) Supervision of high risk in second trimester ([facility])- Primary Unspecified high-risk 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, single or unspecified fetus (HCC) 20 weeks gestation of ([facility]) state, incidental Hx of intravenous drug use, in remission- Primary Other, mixed, or unspecified nondependent drug abuse, in remission Maternal care for isoimmunization, second trimester, single gestation ([facility]) 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, single or unspecified fetus (HCC) History of drug abuse ([facility]) Other, mixed, or unspecified nondependent drug abuse, in remission Family history of congenital heart defect Family history of congenital anomalies History of depression Supervision of high risk in second trimester ([facility])- Primary Unspecified high-risk 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, single or unspecified fetus ([facility]) Tobacco smoking complicating in second trimester ([facility]) Tobacco use disorder complicating , childbirth, or the puerperium, antepartum condition or complication 24 weeks gestation of ([facility]) state, incidental Anti-E isoimmunization affecting in second [...] trimester (HCC)- Primary 32 weeks gestation of ([facility]) state, incidental 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, single or unspecified fetus (HCC) Supervision of high risk due to social problems, third trimester (HCC)- Primary 36 weeks gestation of ([facility]) state, incidental History of herpes genitalis Personal history of other infectious and parasitic disease * Assessment & Plan Note - Wendi Robb MD - 03/01/2025 11:22 AM EDT Associated Problem(s): Supervision of high risk due to social problems, third trimester (HCC) Orders: ROUTINE, GROUP B STREPTOCOCCUS BY PCR GONORRHEA/CHLAMYDIA NAAT TRICHOMONAS VAGINALIS NAAT URINE OB DIP B/O * Assessment & Plan Note - Wendi Robb MD - 03/01/2025 11:22 AM EDT Associated Problem(s): History of herpes genitalis prophylaxis ordered. 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, single or unspecified fetus ([facility]) 20 weeks gestation of ([facility]) state, incidental Hx of intravenous drug use, in remission- Primary Other, mixed, or unspecified nondependent drug abuse, in remission Maternal care for isoimmunization, second trimester, single gestation ([facility]) 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, single or unspecified fetus ([facility]) History of drug abuse ([facility]) Other, mixed, or unspecified nondependent drug abuse, in remission Family history of congenital heart defect Family history of congenital anomalies History of depression Supervision of high risk in second trimester ([facility])- Primary Unspecified high-risk 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, single or unspecified fetus ([facility]) Tobacco smoking complicating in second trimester ([facility]) Tobacco use disorder complicating , childbirth, or the puerperium, antepartum condition or complication 24 weeks gestation of ([facility]) state, incidental Anti-E isoimmunization affecting in second trimester, single or unspecified fetus ([facility])- Primary Supervision of high risk in second trimester ([facility])- Primary Unspecified high-risk 26 weeks gestation of ([facility]) state, incidental 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, single or unspecified fetus ([facility]) Tobacco smoking complicating in second trimester ([facility]) Tobacco use disorder complicating , childbirth, or the puerperium, antepartum condition or complication General counseling and advice for contraceptive management Other general counseling and advice for contraceptive management Supervision of high risk due to social problems, third trimester ([facility])- Primary 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, single or unspecified fetus ([facility]) 28 weeks gestation of ([facility]) state, incidental Need for vaccination Need for prophylactic vaccination and inoculation against unspecified single disease Supervision of high risk due to social problems, third trimester ([facility])- Primary 30 weeks gestation of ([facility]) state, [...] incidental * Assessment & Plan Note - Wendi Robb MD - 03/07/2025 11:25 AM EDT Associated Problem(s): Supervision of high risk due to social problems, third trimester ([facility]) Orders: URINE OB DIP B/[facility] Encounter for supervision of high risk in first trimester, antepartum ([facility])- Primary 12 weeks gestation of ([facility]) state, incidental Nausea and vomiting during ([facility]) 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, single or unspecified fetus ([facility]) Supervision of high risk in second trimester ([facility])- Primary Unspecified high-risk 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, single or unspecified fetus ([facility]) 20 weeks gestation of ([facility]) state, incidental Hx of intravenous drug use, [...] trimester ([facility])- Primary 36 weeks gestation of ([facility]) state, incidental History of herpes genitalis Personal [...] disease * Assessment & Plan Note - Wendi Robb MD - 03/13/2025 3:21 PM EDT Associated Problem(s): Supervision of high risk due to social problems, third trimester ([facility]) Orders: URINE OB DIP B/O * Assessment & Plan Note - Wendi Robb MD - 03/13/2025 3:21 PM EDT Associated Problem(s): History of herpes genitalis [facility] Diagnosis Encounter for supervision of high risk in first trimester, antepartum ([facility])- Primary 12 weeks gestation of ([facility]) state, incidental Nausea and vomiting during ([facility]) 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, single or unspecified fetus ([facility]) Supervision of high risk in second trimester ([facility])- Primary Unspecified high-risk 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, single or unspecified fetus ([facility]) 20 weeks gestation of ([facility]) state, incidental Hx of intravenous drug use, in remission- Primary Other, mixed, or unspecified nondependent drug abuse, in remission Maternal care for isoimmunization, second trimester, single gestation ([facility]) 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, single or unspecified fetus ([facility]) History of drug abuse ([facility]) Other, mixed, or unspecified nondependent drug abuse, in remission Family history of congenital heart defect Family history of congenital anomalies History of depression Supervision of high risk in second trimester ([facility])- Primary Unspecified high-risk 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, single or unspecified fetus ([facility]) Tobacco smoking complicating in second trimester ([facility]) Tobacco use disorder complicating , childbirth, or the puerperium, antepartum condition or complication 24 weeks gestation of ([facility]) state, incidental 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, single or unspecified fetus ([facility])- Primary Supervision of high risk in second trimester ([facility])- Primary Unspecified high-risk 26 weeks gestation of ([facility]) state, incidental 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, single or unspecified fetus ([facility]) Tobacco smoking complicating in second trimester (HCC) Tobacco use disorder complicating , childbirth, or the puerperium, antepartum condition or complication General counseling and advice for contraceptive management Other general counseling and advice for contraceptive management Supervision of high risk due to social problems, third trimester ([facility])- Primary 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, single or unspecified fetus ([facility]) 28 weeks gestation of ([facility]) state, incidental Need for vaccination Need for prophylactic vaccination and inoculation against unspecified single disease Supervision of high risk due to social problems, third trimester ([facility])- Primary 30 weeks gestation of ([facility]) state, incidental Supervision of high risk due to social problems, third trimester ([facility])- Primary 32 weeks gestation of ([facility]) state, incidental 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, single or unspecified fetus ([facility]CC) Supervision of high risk due to social problems, third trimester ([facility])- Primary 36 weeks gestation of ([facility]) state, incidental History of herpes genitalis Personal history of other infectious and parasitic disease Supervision of high risk due to social problems, third trimester ([facility])- Primary 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, single or unspecified fetus ([facility]) 37 weeks gestation of ([facility]) state, incidental Supervision of high risk due to social problems, third trimester ([facility])- Primary 38 weeks gestation of ([facility]) state, incidental Vaginal discharge during in third trimester ([facility]) History of herpes genitalis Personal history of other infectious and parasitic disease Post depression- Primary Mental disorders of mother, [facility] Diagnosis Encounter for supervision of high risk in first trimester, antepartum ([facility])- Primary 12 weeks gestation of ([facility]) state, incidental Nausea and vomiting during ([facility]) 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, single or unspecified fetus ([facility]) Supervision of high risk in second trimester ([facility])- Primary Unspecified high-risk 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, single or unspecified fetus (HCC) 20 weeks gestation of ([facility]) state, incidental Hx of intravenous drug use, in remission- Primary Other, mixed, or unspecified nondependent drug abuse, in remission Maternal care for isoimmunization, second trimester, single gestation ([facility]) 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, single or unspecified fetus (HCC) History of drug abuse ([facility]) Other, mixed, or unspecified nondependent drug abuse, in remission Family history of congenital heart defect Family history of congenital anomalies History of depression Supervision of high risk in second trimester ([facility])- Primary Unspecified high-risk 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, single or unspecified fetus ([facility]) Tobacco smoking complicating in second trimester ([facility]) Tobacco use disorder complicating , childbirth, or the puerperium, antepartum condition or complication 24 weeks gestation of ([facility]) state, incidental 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, single or unspecified fetus ([facility])- Primary Supervision of high risk in second trimester ([facility])- Primary Unspecified high-risk 26 weeks gestation of ([facility]) state, incidental 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, single or unspecified fetus ([facility]) Tobacco smoking complicating in second trimester ([facility]) Tobacco use disorder complicating , childbirth, or the puerperium, antepartum condition or complication General counseling and advice for contraceptive management Other general counseling and advice for contraceptive management Supervision of high risk due to social problems, third trimester ([facility])- Primary 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, single or unspecified fetus ([facility]) 28 weeks gestation of ([facility]) state, incidental Need for vaccination Need for prophylactic vaccination and inoculation against unspecified single disease Supervision of high risk due to social problems, third trimester ([facility])- Primary 30 weeks gestation of ([facility]) state, incidental Supervision of high risk due to social problems, third trimester ([facility])- Primary 32 weeks gestation of ([facility]) state, incidental 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, single or unspecified fetus ([facility]) Supervision of high risk due to social problems, third trimester ([facility])- Primary 36 weeks gestation of ([facility]) state, incidental History of herpes genitalis Personal history of other infectious and parasitic disease Supervision of high risk due to social problems, third trimester ([facility])- Primary 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, single or unspecified fetus ([facility]) 37 weeks gestation of ([facility]) state, incidental Supervision of high risk due to social problems, third trimester ([facility])- Primary 38 weeks gestation of ([facility]) state, incidental Vaginal discharge during in third trimester ([facility]) History of herpes genitalis Personal history of other infectious and parasitic disease care and examination ([facility])- Primary Routine follow-up Screening for malignant neoplasm of cervix Screening for malignant neoplasm of the cervix Special screening examination for human papillomavirus (HPV) documented in this encounter [facility] for referral (narrative)* Diagnostic Procedure Only (Routine) - Pending Review Specialty Diagnoses / Procedures Referred By Татьяна t Referred To Contact [facility][NOTE 3] Diagnoses Uncertain dates, antepartum, first trimester Procedures OBSTETRIC ULTRASOUND WHI US PREG UTERUS AFTER 1ST TRIMEST GESTATION Wendi Robb MD [address] [place] [address] [facility] [address] [place] [address] Referral ID Status Reason Start Date Expiration Date Visits Requested Visits Authorized [id number] Pending Review Auto-Generat ed Referral 01/02/2022 01/02/2023 1 1 [facility] for referral (narrative)* Diagnostic Procedure Only (Routine) - Pending Review Specialty Diagnoses / Procedures Referred By Татьяна t Referred To [facility] Diagnoses Encounter for supervision of normal in multigravida in first trimester Procedures NUCHAL TRANSLUCENCY WHI US NUCHAL TRANSLUCENCY 1ST GESTATION Alfredo Benitez MD [address] [place] [address] [facility] [address] [place] [address] Referral ID Status Reason Start Date Expiration Date Visits Requested Visits Authorized [id number] Pending Review Auto-Generat ed Referral 01/20/2022 01/20/2023 1 1 [facility] for referral (narrative)* Diagnostic Procedure Only (Routine) - Pending Review Specialty Diagnoses / Procedures Referred By Nghiaac t Referred To Contact [facility][NOTE 3] Diagnoses Supervision of other high risk pregnancies, first trimester Encounter for screening of mother Procedures OBSTETRIC ULTRASOUND WHI US PREG UTERUS AFTER 1ST TRIMEST GESTATION Wendi Robb MD [address] [place] [address] [facility] [address] [place] [address] Referral ID Status Reason Start Date Expiration Date Visits Requested Visits Authorized [id number] Pending Review Auto-Generat ed Referral 02/17/2022 02/17/2023 1 1 * Diagnostic Procedure Only (Routine) - Closed Specialty Diagnoses / Procedures Referred By Contac t Referred To Contact [facility][NOTE 3] Diagnoses 13 weeks gestation of Supervision of other high risk pregnancies, first trimester Encounter for screening of mother Procedures NUCHAL TRANSLUCENCY WHI US NUCHAL TRANSLUCENCY 1ST GESTATION Wendi Robb MD [address] [place] [address] [facility] [address] [place] [address] Referral ID Status Reason Start Date Expiration Date V isits Requested Visits Authorized [id number] Closed Auto-Generate d Referral 02/17/2022 02/17/2023 1 1 [facility] for referral (narrative)* Diagnostic Procedure Only (Routine) - Pending Review Specialty Diagnoses / Procedures Referred By Contac t Referred To Contact [facility][NOTE 3] Diagnoses Supervision of high risk in third trimester 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, single or unspecified fetus 31 weeks gestation of Procedures OBSTETRIC ULTRASOUND WHI US PREG UTERUS AFTER 1ST TRIMEST GESTATION Wendi Robb MD [address] [place] [address] [facility] [address] [place] [address] Referral ID Status Reason Start Date Expiration Date Visits Requested Visits Authorized [id number] Pending Review Auto-Generat ed Referral 2 06/25/2023 1 1 [facility] for referral (narrative)* Diagnostic Procedure Only (Routine) - Pending Review Specialty Diagnoses / Procedures Referred By Contac t Referred To Contact [facility][NOTE 3] Diagnoses 31 weeks gestation of High-risk in third trimester 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, single or unspecified fetus Procedures OBSTETRIC ULTRASOUND WHI US PREG UTERUS AFTER 1ST TRIMEST GESTATION Wendi Robb MD [address] [place] [address] [id number] [place] [address] Referral ID Status Reason Start Date Expiration Date Visits Requested Visits Authorized [id number] Pending Review Auto-Generat ed Referral 2 06/26/2023 1 1 [facility] for referral (narrative)* Outpatient Procedure (Routine) - Pending Review Specialty Diagnoses / Procedures Referred By Contac t Referred To Contact [facility][NOTE 3] Diagnoses Nexplanon insertion Procedures NEXPLANON REMOVAL REMOVAL NON-BIODEGRADABLE DRUG DELIVERY IMPLANT Wendi Robb MD [address] [place] [address] [id number] [place] [address] Referral ID Status Reason Start Date Expiration Date Visits Requested Visits Authorized [id number] Pending Review Auto-Generat ed Referral 01/08/2023 01/08/2024 1 1 [facility] for referral (narrative)* Diagnostic Procedure Only (Routine) - Closed Specialty Diagnoses / Procedures Referred By Contac t Referred To Contact [facility] Diagnoses Chronic hepatitis C without hepatic coma (HCC) Procedures US ABD RT UPPER QUADRANT US ABDOMINAL REAL TIME W/IMAGE LIMITED Abimbola Valenzuela PA-C [address] [place] [address] [place] [address] Referral ID Status Reason Start Date Expiration Date V isits Requested Visits Authorized [id number] Closed Auto-Generate d Referral 10/14/2022 11/13/2023 1 1 [facility] for referral (narrative)* Diagnostic Procedure Only (Routine) - Authorized Specialty Diagnoses / Procedures Referred By Contac t Referred To Contact [facility][NOTE 3] Diagnoses Encounter for supervision of high risk in first trimester, antepartum Procedures NUCHAL TRANSLUCENCY WHI US NUCHAL TRANSLUCENCY 1ST GESTATION Rylee Scott APRN.CNP [address] [place] [address] [place] [id number] Referral ID Status Reason Start Date Expiration Date Visits Requested Visits Authorized [id number] Authorized Auto-Generat ed Referral 4 08/02/2025 1 1 * Diagnostic Procedure Only (Routine) - Authorized Specialty Diagnoses / Procedures Referred By Contac t Referred To [facility] Diagnoses Encounter for supervision of high risk in first trimester, antepartum Procedures OBSTETRIC ULTRASOUND WHI US PREG UTERUS AFTER 1ST TRIMEST GESTATION Ryele Scott APRN.CNP [address] 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 [address] [facility] [address] [place] [address] Referral ID Status Reason Start Date Expiration Date V isits Requested Visits Authorized [id number] Closed Auto-Generate d Referral 07/03/2022 07/03/2023 10 1 [facility] for visit Narrative* Outpatient Procedure (Routine) - Closed Specialty Diagnoses / Procedures Referred By Contac t Referred To Contact GASTROENTEROLOGY Diagnoses Chronic hepatitis C without hepatic coma (HCC) Procedures DDI VIBRATION CONTROLLED TRANSIENT ELASTOGRAPHY (VCTE) LIVER ELASTOGRAPHY W/O IMAG W/I&R Abimbola Valenzuela PA-C [address] [facility] [place] [address] [address] [address] Referral ID Status Reason Start Date Expiration Date V isits Requested Visits Authorized [id number] Closed Auto-Generate d Referral 10/14/2022 10/14/2023 1 1 [facility] Summary Purpose Family History No Family History Records Found Relationship Condition Age at Onset Recorded Date/T noah Unknown Family History?- Unknown February 02, 015 9:41am Family History?- Unknown February 03 015 8:45am Relationship Condition Age at Onset Recorded Date/T noah Unknown Family History?- Unknown February 02, 015 8:41am Family History?- Unknown February 03, 015 7:45am Advance Directives No Advanced Directives Records Found Advance Directive Response Recorded Date/ Time Advance Directives No February 03 12:02am Living Will No December 23, 2021 8:31pm Power of Boner Meat No December 23 8:31pm Advance Directive Response Recorded Date/ Time Advance Directives No February 03 12:02am Living Will No January 26, 2022 1 1:10pm Power of Boner Meat No January 26, 2022 11:10pm Advance Directive Response Recorded Date/ Time Advance Directives No February 03 12:02am Living Will No May 07 11:07pm Power of Boner Meat No May 07, 2022 11:07pm Advance Directive Response Recorded Date/ Time Advance Directives No February 02 11:02pm Living Will No August 05 022 7:16am Power of Boner Meat No August 05, 2022 7:16am Chief Complaint [...] Referral Specialty Diagnoses / Procedures Referred By Татьяна escobar Referred To Contact Diagnoses Chronic active hepatitis (HCC) Procedures CONSULT TO HEPATOLOGY OFFICE/OUTPATIENT [facility] 60-74 MINUTES Wendi Robb MD [place] [address] Referral ID Status Reason Start Date Expiration Date Visits Requested Visits Authorized [id number] Authorized PCP Requested Referral 08/12/2022 08/12/2023 1 1 Additional Source Comments INFORMATION SOURCE (unrecogn ized section and content) DATE CREATED AUTHOR 03/01/2018 [facility] DATE CREATED AUTHOR AUTHOR'S ORGANIZ ATION 03/01/2018 [facility] ([place]) DATE CREATED AUTHOR AUTHOR'S ORGANIZ ATION 12/10/2024 [facility] DATE CREATED AUTHOR AUTHOR'S ORGANIZ ATION 05/04/2025 [facility] DATE CREATED AUTHOR AUTHOR'S ORGANIZ ATION 05/09/2025 [facility] Source Comments (unrecognize d section and content) In the event this informatio n is protected by the Federal Confidentiality of Alcohol and Drug Abuse Patient Records regulations: The Federal rules restrict any use of the information to criminally investigate or prosecute any alcohol or drug abuse patient.[facility] the event this information is protected by the Federal Confidentiality of Alcohol and Drug Abuse Patient Records regulations: The Federal rules restrict any use of the information to criminally investigate or prosecute any alcohol or drug abuse patient.[facility] the event this information is protected by the Federal Confidentiality of Alcohol and Drug Abuse Patient Records regulations: The Federal rules restrict any use of the information to criminally investigate or prosecute any alcohol or drug abuse patient.[facility] the event this information is protected by the Federal Confidentiality of Alcohol and Drug Abuse Patient Records regulations: The Federal rules restrict any use of the information to criminally investigate or prosecute any alcohol or drug abuse patient.[facility] the event this information is protected by the Federal Confidentiality of Alcohol and Drug Abuse Patient Records regulations: The Federal rules restrict any use of the information to criminally investigate or prosecute any alcohol or drug abuse patient.[facility] the event this information is protected by the Federal Confidentiality of Alcohol and Drug Abuse Patient Records regulations: The Federal rules restrict any use of the information to criminally investigate or prosecute any alcohol or drug abuse patient.[facility] the event this information is protected by the Federal Confidentiality of Alcohol and Drug Abuse Patient Records regulations: The Federal rules restrict any use of the information to criminally investigate or prosecute any alcohol or drug abuse patient.[facility] the event this information is protected by the Federal Confidentiality of Alcohol and Drug Abuse Patient Records regulations: The Federal rules restrict any use of the information to criminally investigate or prosecute any alcohol or drug abuse patient.[facility] event this information is protected by the Federal Confidentiality of Alcohol and Drug Abuse Patient Records regulations: The Federal rules restrict any use of the information to criminally investigate or prosecute any alcohol or drug abuse patient.[facility]In the event this information is protected by the Federal Confidentiality of Alcohol and Drug Abuse Patient Records regulations: The Federal rules restrict any use of the information to criminally investigate or prosecute any alcohol or drug abuse patient.[facility] CampusIn the event this information is protected by the Federal Confidentiality of Alcohol and Drug Abuse Patient Records regulations: The Federal rules restrict any use of the information to criminally investigate or prosecute any alcohol or drug abuse patient.[facility] CampusIn the event this information is protected by the Federal Confidentiality of Alcohol and Drug Abuse Patient Records regulations: The Federal rules restrict any use of the information to criminally investigate or prosecute any alcohol or drug abuse patient.[facility] CampusIn the event this information is protected by the Federal Confidentiality of Alcohol and Drug Abuse Patient Records regulations: The Federal rules restrict any use of the information to criminally investigate or prosecute any alcohol or drug abuse patient.[facility] CampusIn the event this information is protected by the Federal Confidentiality of Alcohol and Drug Abuse Patient Records regulations: The Federal rules restrict any use of the information to criminally investigate or prosecute any alcohol or drug abuse patient.[facility] CampusIn the event this information is protected by the Federal Confidentiality of Alcohol and Drug Abuse Patient Records regulations: The Federal rules restrict any use of the information to criminally investigate or prosecute any alcohol or drug abuse patient.[facility] CampusIn the event this information is protected by the Federal Confidentiality of Alcohol and Drug Abuse Patient Records regulations: The Federal rules restrict any use of the information to criminally investigate or prosecute any alcohol or drug abuse patient.[facility] CampusIn the event this information is protected by the Federal Confidentiality of Alcohol and Drug Abuse Patient Records regulations: The Federal rules restrict any use of the information to criminally investigate or prosecute any alcohol or drug abuse patient.[facility] CampusIn the event this information is protected by the Federal Confidentiality of Alcohol and Drug Abuse Patient Records regulations: The Federal rules restrict any use of the information to criminally investigate or prosecute any alcohol or drug abuse patient.[facility] CampusIn the event this information is protected by the Federal Confidentiality of Alcohol and Drug Abuse Patient Records regulations: The Federal rules restrict any use of the information to criminally investigate or prosecute any alcohol or drug abuse patient.[facility] CampusIn the event this information is protected by the Federal Confidentiality of Alcohol and Drug Abuse Patient Records regulations: The Federal rules restrict any use of the information to criminally investigate or prosecute any alcohol or drug abuse patient.[facility] CampusIn the event this information is protected by the Federal Confidentiality of Alcohol and Drug Abuse Patient Records regulations: The Federal rules restrict any use of the information to criminally investigate or prosecute any alcohol or drug abuse patient.[facility] CampusIn the event this information is protected by the Federal Confidentiality of Alcohol and Drug Abuse Patient Records regulations: The Federal rules restrict any use of the information to criminally investigate or prosecute any alcohol or drug abuse patient.[facility] CampusIn the event this information is protected by the Federal Confidentiality of Alcohol and Drug Abuse Patient Records regulations: The Federal rules restrict any use of the information to criminally investigate or prosecute any alcohol or drug abuse patient.[facility] CampusIn the event this information is protected by the Federal Confidentiality of Alcohol and Drug Abuse Patient Records regulations: The Federal rules restrict any use of the information to criminally investigate or prosecute any alcohol or drug abuse patient.[facility] CampusIn the event this information is protected by the Federal Confidentiality of Alcohol and Drug Abuse Patient Records regulations: The Federal rules restrict any use of the information to criminally investigate or prosecute any alcohol or drug abuse patient.[facility] CampusIn the event this information is protected by the Federal Confidentiality of Alcohol and Drug Abuse Patient Records regulations: The Federal rules restrict any use of the information to criminally investigate or prosecute any alcohol or drug abuse patient.[facility] CampusIn the event this information is protected by the Federal Confidentiality of Alcohol and Drug Abuse Patient Records regulations: The Federal rules restrict any use of the information to criminally investigate or prosecute any alcohol or drug abuse patient.[facility] CampusIn the event this information is protected by the Federal Confidentiality of Alcohol and Drug Abuse Patient Records regulations: The Federal rules restrict any use of the information to criminally investigate or prosecute any alcohol or drug abuse patient.[facility] CampusIn the event this information is protected by the Federal Confidentiality of Alcohol and Drug Abuse Patient Records regulations: The Federal rules restrict any use of the information to criminally investigate or prosecute any alcohol or drug abuse patient.[facility] CampusIn the event this information is protected by the Federal Confidentiality of Alcohol and Drug Abuse Patient Records regulations: The Federal rules restrict any use of the information to criminally investigate or prosecute any alcohol or drug abuse patient.[facility] CampusIn the event this information is protected by the Federal Confidentiality of Alcohol and Drug Abuse Patient Records regulations: The Federal rules restrict any use of the information to criminally investigate or prosecute any alcohol or drug abuse patient.[facility] CampusIn the event this information is protected by the Federal Confidentiality of Alcohol and Drug Abuse Patient Records regulations: The Federal rules restrict any use of the information to criminally investigate or prosecute any alcohol or drug abuse patient.[facility] CampusIn the event this information is protected by the Federal Confidentiality of Alcohol and Drug Abuse Patient Records regulations: The Federal rules restrict any use of the information to criminally investigate or prosecute any alcohol or drug abuse patient.[facility] CampusIn the event this information is protected by the Federal Confidentiality of Alcohol and Drug Abuse Patient Records regulations: The Federal rules restrict any use of the information to criminally investigate or prosecute any alcohol or drug abuse patient.[facility] CampusIn the event this information is protected by the Federal Confidentiality of Alcohol and Drug Abuse Patient Records regulations: The Federal rules restrict any use of the information to criminally investigate or prosecute any alcohol or drug abuse patient.[facility] CampusIn the event this information is protected by the Federal Confidentiality of Alcohol and Drug Abuse Patient Records regulations: The Federal rules restrict any use of the information to criminally investigate or prosecute any alcohol or drug abuse patient.[facility] CampusIn the event this information is protected by the Federal Confidentiality of Alcohol and Drug Abuse Patient Records regulations: The Federal rules restrict any use of the information to criminally investigate or prosecute any alcohol or drug abuse patient.[facility] CampusIn the event this information is protected by the Federal Confidentiality of Alcohol and Drug Abuse Patient Records regulations: The Federal rules restrict any use of the information to criminally investigate or prosecute any alcohol or drug abuse patient.[facility] CampusIn the event this information is protected by the Federal Confidentiality of Alcohol and Drug Abuse Patient Records regulations: The Federal rules restrict any use of the information to criminally investigate or prosecute any alcohol or drug abuse patient.[facility] CampusIn the event this information is protected by the Federal Confidentiality of Alcohol and Drug Abuse Patient Records regulations: The Federal rules restrict any use of the information to criminally investigate or prosecute any alcohol or drug abuse patient.[facility] CampusIn the event this information is protected by the Federal Confidentiality of Alcohol and Drug Abuse Patient Records regulations: The Federal rules restrict any use of the information to criminally investigate or prosecute any alcohol or drug abuse patient.[facility]In the event this information is protected by the Federal Confidentiality of Alcohol and Drug Abuse Patient Records regulations: The Federal rules restrict any use of the information to criminally investigate or prosecute any alcohol or drug abuse patient.[facility] CampusIn the event this information is protected by the Federal Confidentiality of Alcohol and Drug Abuse Patient Records regulations: The Federal rules restrict any use of the information to criminally investigate or prosecute any alcohol or drug abuse patient.[facility] CampusIn the event this information is protected by the Federal Confidentiality of Alcohol and Drug Abuse Patient Records regulations: The Federal rules restrict any use of the information to criminally investigate or prosecute any alcohol or drug abuse patient.[facility] CampusIn the event this information is protected by the Federal Confidentiality of Alcohol and Drug Abuse Patient Records regulations: The Federal rules restrict any use of the information to criminally investigate or prosecute any alcohol or drug abuse patient.[facility] CampusIn the event this information is protected by the Federal Confidentiality of Alcohol and Drug Abuse Patient Records regulations: The Federal rules restrict any use of the information to criminally investigate or prosecute any alcohol or drug abuse patient.[facility] CampusIn the event this information is protected by the Federal Confidentiality of Alcohol and Drug Abuse Patient Records regulations: The Federal rules restrict any use of the information to criminally investigate or prosecute any alcohol or drug abuse patient.[facility] CampusIn the event this information is protected by the Federal Confidentiality of Alcohol and Drug Abuse Patient Records regulations: The Federal rules restrict any use of the information to criminally investigate or prosecute any alcohol or drug abuse patient.[facility] CampusIn the event this information is protected by the Federal Confidentiality of Alcohol and Drug Abuse Patient Records regulations: The Federal rules restrict any use of the information to criminally investigate or prosecute any alcohol or drug abuse patient.[facility] CampusIn the event this information is protected by the Federal Confidentiality of Alcohol and Drug Abuse Patient Records regulations: The Federal rules restrict any use of the information to criminally investigate or prosecute any alcohol or drug abuse patient.[facility] CampusIn the event this information is protected by the Federal Confidentiality of Alcohol and Drug Abuse Patient Records regulations: The Federal rules restrict any use of the information to criminally investigate or prosecute any alcohol or drug abuse patient.[facility] CampusIn the event this information is protected by the Federal Confidentiality of Alcohol and Drug Abuse Patient Records regulations: The Federal rules restrict any use of the information to criminally investigate or prosecute any alcohol or drug abuse patient.[facility] CampusIn the event this information is protected by the Federal Confidentiality of Alcohol and Drug Abuse Patient Records regulations: The Federal rules restrict any use of the information to criminally investigate or prosecute any alcohol or drug abuse patient.[facility] CampusIn the event this information is protected by the Federal Confidentiality of Alcohol and Drug Abuse Patient Records regulations: The Federal rules restrict any use of the information to criminally investigate or prosecute any alcohol or drug abuse patient.[facility] CampusIn the event this information is protected by the Federal Confidentiality of Alcohol and Drug Abuse Patient Records regulations: The Federal rules restrict any use of the information to criminally investigate or prosecute any alcohol or drug abuse patient.[facility] CampusIn the event this information is protected by the Federal Confidentiality of Alcohol and Drug Abuse Patient Records regulations: The Federal rules restrict any use of the information to criminally investigate or prosecute any alcohol or drug abuse patient.[facility] CampusIn the event this information is protected by the Federal Confidentiality of Alcohol and Drug Abuse Patient Records regulations: The Federal rules restrict any use of the information to criminally investigate or prosecute any alcohol or drug abuse patient.[facility] CampusIn the event this information is protected by the Federal Confidentiality of Alcohol and Drug Abuse Patient Records regulations: The Federal rules restrict any use of the information to criminally investigate or prosecute any alcohol or drug abuse patient.[facility] CampusIn the event this information is protected by the Federal Confidentiality of Alcohol and Drug Abuse Patient Records regulations: The Federal rules restrict any use of the information to criminally investigate or prosecute any alcohol or drug abuse patient.[facility] CampusIn the event this information is protected by the Federal Confidentiality of Alcohol and Drug Abuse Patient Records regulations: The Federal rules restrict any use of the information to criminally investigate or prosecute any alcohol or drug abuse patient.[facility] CampusIn the event this information is protected by the Federal Confidentiality of Alcohol and Drug Abuse Patient Records regulations: The Federal rules restrict any use of the information to criminally investigate or prosecute any alcohol or drug abuse patient.[facility] CampusIn the event this information is protected by the Federal Confidentiality of Alcohol and Drug Abuse Patient Records regulations: The Federal rules restrict any use of the information to criminally investigate or prosecute any alcohol or drug abuse patient.[facility] CampusIn the event this information is protected by the Federal Confidentiality of Alcohol and Drug Abuse Patient Records regulations: The Federal rules restrict any use of the information to criminally investigate or prosecute any alcohol or drug abuse patient.[facility] CampusIn the event this information is protected by the Federal Confidentiality of Alcohol and Drug Abuse Patient Records regulations: The Federal rules restrict any use of the information to criminally investigate or prosecute any alcohol or drug abuse patient.[facility] CampusIn the event this information is protected by the Federal Confidentiality of Alcohol and Drug Abuse Patient Records regulations: The Federal rules restrict any use of the information to criminally investigate or prosecute any alcohol or drug abuse patient.[facility] CampusIn the event this information is protected by the Federal Confidentiality of Alcohol and Drug Abuse Patient Records regulations: The Federal rules restrict any use of the information to criminally investigate or prosecute any alcohol or drug abuse patient.[facility] CampusIn the event this information is protected by the Federal Confidentiality of Alcohol and Drug Abuse Patient Records regulations: The Federal rules restrict any use of the information to criminally investigate or prosecute any alcohol or drug abuse patient.[facility] CampusIn the event this information is protected by the Federal Confidentiality of Alcohol and Drug Abuse Patient Records regulations: The Federal rules restrict any use of the information to criminally investigate or prosecute any alcohol or drug abuse patient.[facility] CampusIn the event this information is protected by the Federal Confidentiality of Alcohol and Drug Abuse Patient Records regulations: The Federal rules restrict any use of the information to criminally investigate or prosecute any alcohol or drug abuse patient.[facility] CampusIn the event this information is protected by the Federal Confidentiality of Alcohol and Drug Abuse Patient Records regulations: The Federal rules restrict any use of the information to criminally investigate or prosecute any alcohol or drug abuse patient.[facility] CampusIn the event this information is protected by the Federal Confidentiality of Alcohol and Drug Abuse Patient Records regulations: The Federal rules restrict any use of the information to criminally investigate or prosecute any alcohol or drug abuse patient.[facility] CampusIn the event this information is protected by the Federal Confidentiality of Alcohol and Drug Abuse Patient Records regulations: The Federal rules restrict any use of the information to criminally investigate or prosecute any alcohol or drug abuse patient.[facility] CampusIn the event this information is protected by the Federal Confidentiality of Alcohol and Drug Abuse Patient Records regulations: The Federal rules restrict any use of the information to criminally investigate or prosecute any alcohol or drug abuse patient.[facility] CampusIn the event this information is protected by the Federal Confidentiality of Alcohol and Drug Abuse Patient Records regulations: The Federal rules restrict any use of the information to criminally investigate or prosecute any alcohol or drug abuse patient.[facility] CampusIn the event this information is protected by the Federal Confidentiality of Alcohol and Drug Abuse Patient Records regulations: The Federal rules restrict any use of the information to criminally investigate or prosecute any alcohol or drug abuse patient.[facility] CampusIn the event this information is protected by the Federal Confidentiality of Alcohol and Drug Abuse Patient Records regulations: The Federal rules restrict any use of the information to criminally investigate or prosecute any alcohol or drug abuse patient.[facility] CampusIn the event this information is protected by the Federal Confidentiality of Alcohol and Drug Abuse Patient Records regulations: The Federal rules restrict any use of the information to criminally investigate or prosecute any alcohol or drug abuse patient.[facility] CampusIn the event this information is protected by the Federal Confidentiality of Alcohol and Drug Abuse Patient Records regulations: The Federal rules restrict any use of the information to criminally investigate or prosecute any alcohol or drug abuse patient.[facility] CampusIn the event this information is protected by the Federal Confidentiality of Alcohol and Drug Abuse Patient Records regulations: The Federal rules restrict any use of the information to criminally investigate or prosecute any alcohol or drug abuse patient.[facility] CampusIn the event this information is protected by the Federal Confidentiality of Alcohol and Drug Abuse Patient Records regulations: The Federal rules restrict any use of the information to criminally investigate or prosecute any alcohol or drug abuse patient.[facility]In the event this information is protected by the Federal Confidentiality of Alcohol and Drug Abuse Patient Records regulations: The Federal rules restrict any use of the information to criminally investigate or prosecute any alcohol or drug abuse patient.[facility] CampusIn the event this information is protected by the Federal Confidentiality of Alcohol and Drug Abuse Patient Records regulations: The Federal rules restrict any use of the information to criminally investigate or prosecute any alcohol or drug abuse patient.[facility] CampusIn the event this information is protected by the Federal Confidentiality of Alcohol and Drug Abuse Patient Records regulations: The Federal rules restrict any use of the information to criminally investigate or prosecute any alcohol or drug abuse patient.[facility] CampusIn the event this information is protected by the Federal Confidentiality of Alcohol and Drug Abuse Patient Records regulations: The Federal rules restrict any use of the information to criminally investigate or prosecute any alcohol or drug abuse patient.[facility] CampusIn the event this information is protected by the Federal Confidentiality of Alcohol and Drug Abuse Patient Records regulations: The Federal rules restrict any use of the information to criminally investigate or prosecute any alcohol or drug abuse patient.[facility] CampusIn the event this information is protected by the Federal Confidentiality of Alcohol and Drug Abuse Patient Records regulations: The Federal rules restrict any use of the information to criminally investigate or prosecute any alcohol or drug abuse patient.[facility] CampusIn the event this information is protected by the Federal Confidentiality of Alcohol and Drug Abuse Patient Records regulations: The Federal rules restrict any use of the information to criminally investigate or prosecute any alcohol or drug abuse patient.[facility] CampusIn the event this information is protected by the Federal Confidentiality of Alcohol and Drug Abuse Patient Records regulations: The Federal rules restrict any use of the information to criminally investigate or prosecute any alcohol or drug abuse patient.[facility] CampusIn the event this information is protected by the Federal Confidentiality of Alcohol and Drug Abuse Patient Records regulations: The Federal rules restrict any use of the information to criminally investigate or prosecute any alcohol or drug abuse patient.[facility] CampusIn the event this information is protected by the Federal Confidentiality of Alcohol and Drug Abuse Patient Records regulations: The Federal rules restrict any use of the information to criminally investigate or prosecute any alcohol or drug abuse patient.[facility] CampusIn the event this information is protected by the Federal Confidentiality of Alcohol and Drug Abuse Patient Records regulations: The Federal rules restrict any use of the information to criminally investigate or prosecute any alcohol or drug abuse patient.[facility]In the event this information is protected by the Federal Confidentiality of Alcohol and Drug Abuse Patient Records regulations: The Federal rules restrict any use of the information to criminally investigate or prosecute any alcohol or drug abuse patient.[facility] the event this information is protected by the Federal Confidentiality of Alcohol and Drug Abuse Patient Records regulations: The Federal rules restrict any use of the information to criminally investigate or prosecute any alcohol or drug abuse patient.[facility] Campus[facility] the event this information is protected by the Federal Confidentiality of Alcohol and Drug Abuse Patient Records regulations: The Federal rules restrict any use of the information to criminally investigate or prosecute any alcohol or drug abuse patient.[facility] Campus[facility] the event this information is protected by the Federal Confidentiality of Alcohol and Drug Abuse Patient Records regulations: The Federal rules restrict any use of the information to criminally investigate or prosecute any alcohol or drug abuse patient.[facility] CampusIn the event this information is protected by the Federal Confidentiality of Alcohol and Drug Abuse Patient Records regulations: The Federal rules restrict any use of the information to criminally investigate or prosecute any alcohol or drug abuse patient.[facility] Campus[facility] the event this information is protected by the Federal Confidentiality of Alcohol and Drug Abuse Patient Records regulations: The Federal rules restrict any use of the information to criminally investigate or prosecute any alcohol or drug abuse patient.[facility] Reason for Visit (unrecogniz ed section and content) Reason Comments Future Appointment Reason Comments Missed Appointment Reason Comments Initial OB Visit Reason Onset Date Comments Care 01/20/2022 Reason Comments Results Reason Comments PRAF FORM Reason Onset Date Comments Care 02/17/2022 Reason Comments US Specialty Diagnoses / Procedures Referred By Татьяна t Referred To Contact [facility][NOTE 3] Diagnoses 13 weeks gestation of Supervision of other high risk pregnancies, first trimester Encounter for screening of mother Procedures NUCHAL TRANSLUCENCY WHI US NUCHAL TRANSLUCENCY 1ST GESTATION Wendi Robb MD [address] [place] [address] [facility] [address] [place] [address] Referral ID Status Reason Start Date Expiration Date V isits Requested Visits Authorized [id number] Closed Auto-Generate d Referral 02/17/2022 02/17/2023 1 1 Reason Comments Patient Update Reason Comments First Seq Results Reason Comments Patient Question Reason Onset Date Comments Care 03/17/2022 Specialty Diagnoses / Procedures Referred By Contac t Referred To Contact [facility][NOTE 3] Diagnoses Supervision of other high risk pregnancies, first trimester Encounter for screening of mother Procedures OBSTETRIC ULTRASOUND WHI US PREG UTERUS AFTER 1ST TRIMEST GESTATION Wendi Robb MD [address] [place] [address] [address] Referral ID Status Reason Start Date Expiration Date V isits Requested Visits Authorized [id number] Closed Auto-Generate d Referral 02/17/2022 02/17/2023 1 1 Reason Onset Date Comments Care 04/24/2022 Reason Comments Medication Question Reason Onset Date Comments Care 05/25/2022 Reason Onset Date Comments Care 06/10/2022 Reason Comments Orders Reason Onset Date Comments Care 06/26/2022 Specialty Diagnoses / Procedures Referred By Contac t Referred To Contact [facility][NOTE 3] Diagnoses Supervision of high risk in third trimester 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, single or unspecified fetus 31 weeks gestation of Procedures OBSTETRIC ULTRASOUND WHI US PREG UTERUS AFTER 1ST TRIMEST GESTATION Wendi Robb MD [address] [place] [address] [address] Referral ID Status Reason Start Date Expiration Date V isits Requested Visits Authorized [id number] Closed Auto-Generate d Referral 06/26/2022 06/25/2023 1 1 Reason Onset Date Comments Care 07/07/2022 Specialty Diagnoses / Procedures Referred By Contac t Referred To Contact [facility][NOTE 3] Diagnoses 31 weeks gestation of High-risk in third trimester 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, single or unspecified fetus Procedures OBSTETRIC ULTRASOUND WHI US PREG UTERUS AFTER 1ST TRIMEST GESTATION Wendi Robb MD [address] [place] [address] [id number] [place] [address] Referral ID Status Reason Start Date Expiration Date V isits Requested Visits Authorized [id number] Closed Auto-Generate d Referral 06/26/2022 06/26/2023 1 1 Specialty Diagnoses / Procedures Referred By Contac t Referred To Contact [facility][NOTE 3] Diagnoses High-risk in third trimester 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, single or unspecified fetus Procedures BIOPHYSICAL PROFILE [facility] BIOPHYSICAL PROFILE NON-STRESS TESTING Wendi Robb MD [address] [place] [address] [address] Referral ID Status Reason Start Date Expiration Date V isits Requested Visits Authorized [id number] Closed Auto-Generate d Referral 07/03/2022 07/03/2023 10 [...] REAL TIME W/IMAGE LIMITED Abimbola Valenzuela PA-C [address] [place] [address] [place] [address] Referral ID Status Reason Start Date Expiration Date V isits Requested Visits Authorized [id number] Closed Auto-Generate d Referral 10/14/2022 11/13/2023 1 [...] Referred By Contac t Referred To Contact [facility][NOTE 3] Diagnoses Encounter for supervision of high risk in first trimester, antepartum Procedures NUCHAL TRANSLUCENCY WHI US NUCHAL TRANSLUCENCY 1ST GESTATION Rylee Scott APRN.ELECTRICAL WIRER [address] [place] [address] [facility] [address] [place] [id number] Referral ID Status Reason Start Date Expiration Date V isits Requested Visits Authorized [id number] Closed Auto-Generate d Referral 08/02/2024 08/02/2025 1 [...] Referred By Contac t Referred To Contact [facility][NOTE 3] Diagnoses Encounter for supervision of high risk in first trimester, antepartum Procedures OBSTETRIC ULTRASOUND WHI US PREG UTERUS AFTER 1ST TRIMEST GESTATION Rlyee Scott APRN.ELECTRICAL WIRER [address] [place] [address] Phone: tel: fax: [address] [address] Referral ID Status Reason Start Date Expiration Date V isits Requested Visits Authorized [id number] Closed Auto-Generate d Referral 08/02/2024 08/02/2025 1 1 Specialty Diagnoses / Procedures Referred By Contac t Referred To Contact [facility][NOTE 3] Diagnoses Maternal care for isoimmunization, second trimester, single gestation Supervision of high risk in second trimester Procedures OBSTETRIC ULTRASOUND WHI US PREG UTERUS AFTER 1ST TRIMEST GESTATION Wendi Robb MD [address] [place] [address] Phone: tel: fax: [address] [address] Referral ID Status Reason Start Date Expiration Date V isits Requested Visits Authorized [id number] Closed Auto-Generate d Referral 11/07/2024 11/07/2025 10 1 Reason Comments Consult Specialty Diagnoses / Procedures Referred By Contac t Referred To Contact Diagnoses Maternal care for isoimmunization, second trimester, single gestation Procedures CONSULT TO MATERNAL MEDI OFFICE/OUTPATIENT [facility] 60 MINUTES Wendi Robb MD [address] [place] [address] Phone: tel: fax:[phone] Referral ID Status Reason Start Date Expiration Date V isits Requested Visits Authorized [id number] Closed PCP Requested Referral Auto-Generated Referral 11/07/2024 11/07/2025 1 1 Reason Comments OB Navigation and Pr egnancy Resources Reason Comments Care Specialty Diagnoses / Procedures Referred By Contac t Referred To Contact Diagnoses 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, second trimester, fetus 5 Procedures CONSULT TO MEDICAL GENETICS - MEDICAL GENETICS COUNSELING EACH [address] [place] [address] [place] [address] Phone: tel: fax: [employer] [address] [place] [address] Referral ID Status Reason Start Date Expiration Date V isits Requested Visits Authorized [id number] Closed PCP Requested Referral Auto-Generated Referral 11/23/2024 11/23/2025 1 1 Reason Onset Date Comments Care 12/06/2024 Specialty Diagnoses / Procedures Referred By Contac t Referred To Contact [facility][NOTE 3] Diagnoses Maternal care for isoimmunization, second trimester, single gestation (HCC) Supervision of high risk in second trimester (HCC) Procedures OBSTETRIC ULTRASOUND WHI US PREG UTERUS AFTER 1ST TRIMEST GESTATION Wendi Robb MD [address] [place] [address] Phone: tel: fax: [facility] [address] [place] [address] Reason Onset Date Comments Care 12/20/2024 Reason [...] Comments Care 03/13/2025 Reason Comments OB spotting Reason Comments Early Goals (unrecognized section and content) Goals may be documented in a n alternate sectionGoals may be documented in an alternate sectionGoals may be documented in an alternate sectionGoals may be documented in an alternate section Care Teams (unrecognized sec tion and content) Hot Dip Plating Supervisor Relationship Specialty Start Date End Date Tereso Shaikh MD [address] [place] [address] PCP - General Internal Medicine 02/10/23 Hot Dip Plating Supervisor Relationship Specialty Start Date End Date Tereso Shaikh MD [address] [place] [address] PCP - General Internal Medicine 02/10/23 Hot Dip Plating Supervisor Relationship Specialty Start Date End Date Tereso Shaikh MD [address] [place], [place] [address] PCP - General Internal Medicine 02/10/23 Hot Dip Plating Supervisor Relationship Specialty Start Date End Date Tereso Shaikh MD [address] [place] [address] PCP - General Internal Medicine 02/10/23 Hot Dip Plating Supervisor Relationship Specialty Start Date End Date Tereso Shaikh MD [address] [place], [place] [address] PCP - General Internal Medicine 02/10/23 Hot Dip Plating Supervisor Relationship Specialty Start Date End Date Tereso Shaikh MD [address] [place], [place] [address] PCP - General Internal Medicine 02/10/23 Maria Guadalupe Rivers, DIRECTOR OF CASINO MARKETING.ELECTRICAL WIRER [address] [place] [address] Roll Up Operator Internal Medicine 08/14/24 Hot Dip Plating Supervisor Relationship Specialty Start Date End Date Tereso Shaikh MD [address] [place] [address] PCP - General Internal Medicine 02/10/23 Maria Guadalupe Rivers, DIRECTOR OF CASINO MARKETING.ELECTRICAL WIRER [address] [place] [address] Roll Up Operator Internal Medicine 08/14/24 Hot Dip Plating Supervisor Relationship Specialty Start Date End Date Tereso Shaikh MD [address] [place] [address] PCP - General Internal Medicine 02/10/23 Maria Guadalupe Rivers, DIRECTOR OF CASINO MARKETING.ELECTRICAL WIRER [address] [place] [address] Roll Up Operator Internal Medicine 08/14/24 Hot Dip Plating Supervisor Relationship Specialty Start Date End Date Tereso Shaikh MD [address] [place] [address] PCP - General Internal Medicine 02/10/23 Maria Guadalupe Rivers, DIRECTOR OF CASINO MARKETING.ELECTRICAL WIRER [address] [place] [address] Roll Up Operator Internal Medicine 08/14/24 Hot Dip Plating Supervisor Relationship Specialty Start Date End Date Tereso Shaikh MD [address] [place] [address] PCP - General Internal Medicine 02/10/23 Maria Guadalupe Rivers, DIRECTOR OF CASINO MARKETING.ELECTRICAL WIRER [address] [place] [address] Roll Up Operator Internal Medicine 08/14/24 Hot Dip Plating Supervisor Relationship Specialty Start Date End Date Tereso Shaikh MD [address] [place] [address] PCP - General Internal Medicine 02/10/23 Maria Guadalupe Rivers, DIRECTOR OF CASINO MARKETING.ELECTRICAL WIRER [address] [place] [address] Roll Up Operator Internal Medicine 08/14/24 Hot Dip Plating Supervisor Relationship Specialty Start Date End Date Tereso Shaikh MD [address] [place] [address] PCP - General Internal Medicine 02/10/23 Maria Guadalupe Rivers, DIRECTOR OF CASINO MARKETING.ELECTRICAL WIRER [address] [place] [address] Roll Up Operator Internal Medicine 08/14/24 Hot Dip Plating Supervisor Relationship Specialty Start Date End Date Tereso Shaikh MD [address] [place] [address] PCP - General Internal Medicine 02/10/23 Maria Guadalupe Rivers, DIRECTOR OF CASINO MARKETING.ELECTRICAL WIRER [address] [place] [address] Roll Up Operator Internal Medicine 08/14/24 Hot Dip Plating Supervisor Relationship Specialty Start Date End Date Tereso Shaikh MD [address] [place] [address] PCP - General Internal Medicine 02/10/23 Maria Guadalupe Rivers, DIRECTOR OF CASINO MARKETING.ELECTRICAL WIRER [address] [place] [address] Roll Up Operator Internal Medicine 08/14/24 Hot Dip Plating Supervisor Relationship Specialty Start Date End Date Tereso Shaikh MD [address] [place] [address] PCP - General Internal Medicine 02/10/23 Maria Guadalupe Rivers, DIRECTOR OF CASINO MARKETING.ELECTRICAL WIRER [address] [place] [address] Roll Up Operator Internal Medicine 08/14/24 Hot Dip Plating Supervisor Relationship Specialty Start Date End Date Tereso Shaikh MD [address] [place] [address] PCP - General Internal Medicine 02/10/23 Maria Guadalupe Rivers, DIRECTOR OF CASINO MARKETING.ELECTRICAL WIRER [address] [place] [address] Roll Up Operator Internal Medicine 08/14/24 Hot Dip Plating Supervisor Relationship Specialty Start Date End Date Tereso Shaikh MD [address] [place] [address] PCP - General Internal Medicine 02/10/23 Maria Guadalupe Rivers, DIRECTOR OF CASINO MARKETING.ELECTRICAL WIRER [address] [place] [address] Roll Up Operator Internal Medicine 08/14/24 Hot Dip Plating Supervisor Relationship Specialty Start Date End Date Tereso Shaikh MD [address] [place] [address] PCP - General Internal Medicine 02/10/23 Maria Guadalupe Rivers, DIRECTOR OF CASINO MARKETING.ELECTRICAL WIRER [address] [place] [address] Roll Up Operator Internal Medicine 08/14/24 Hot Dip Plating Supervisor Relationship Specialty Start Date End Date Tereso Shaikh MD [address] [place] [address] PCP - General Internal Medicine 02/10/23 Maria Guadalupe Rivers, DIRECTOR OF CASINO MARKETING.ELECTRICAL WIRER [address] [place] [address] Roll Up Operator Internal Medicine 08/14/24 Hot Dip Plating Supervisor Relationship Specialty Start Date End Date Tereso Shaikh MD [address] [place] [address] PCP - General Internal Medicine 02/10/23 Maria Guadalupe Rivers, DIRECTOR OF CASINO MARKETING.ELECTRICAL WIRER [address] [place] [address] Roll Up Operator Internal Medicine 08/14/24 Hot Dip Plating Supervisor Relationship Specialty Start Date End Date Tereso Shaikh MD [address] [place] [address] PCP - General Internal Medicine 02/10/23 Maria Guadalupe Rivers, DIRECTOR OF CASINO MARKETING.ELECTRICAL WIRER [address] [place] [address] Roll Up Operator Internal Medicine 08/14/24 Hot Dip Plating Supervisor Relationship Specialty Start Date End Date Tereso Shaikh MD [address] [facility] [place] [address] PCP - General Internal Medicine 02/10/23 Maria Guadalupe Rivers, DIRECTOR OF CASINO MARKETING.ELECTRICAL WIRER [address] [facility] [place] [address] Roll Up Operator Internal Medicine 08/14/24 Hot Dip Plating Supervisor Relationship Specialty Start Date End Date Tereso Shaikh MD [address] [facility] [place] [address] PCP - General Internal Medicine 02/10/23 Maria Guadalupe Rivers, DIRECTOR OF CASINO MARKETING.ELECTRICAL WIRER [address] [place] [address] Roll Up Operator Internal Medicine 08/14/24 Hot Dip Plating Supervisor Relationship Specialty Start Date End Date Tereso Shaikh MD [address] [facility] [place] [address] PCP - General Internal Medicine 02/10/23 Maria Guadalupe Rivers, DIRECTOR OF CASINO MARKETING.ELECTRICAL WIRER [address] [facility] [place] [address] Roll Up Operator Internal Medicine 08/14/24 Hot Dip Plating Supervisor Relationship Specialty Start Date End Date Tereso Shaikh MD [address] [facility] [place] [address] PCP - General Internal Medicine 02/10/23 Maria Guadalupe Rivers, DIRECTOR OF CASINO MARKETING.ELECTRICAL WIRER [address] [facility] [place] [address] Roll Up Operator Internal Medicine 08/14/24 Hot Dip Plating Supervisor Relationship Specialty Start Date End Date Tereso Shaikh MD [address] [place] [address] PCP - General Internal Medicine 02/10/23 Maria Guadalupe Rivers, DIRECTOR OF CASINO MARKETING.ELECTRICAL WIRER [address] [place] [address] Roll Up Operator Internal Medicine 08/14/24 Hot Dip Plating Supervisor Relationship Specialty Start Date End Date Tereso Shaikh MD [address] [place] [address] PCP - General Internal Medicine 02/10/23 Maria Guadalupe Rivers, DIRECTOR OF CASINO MARKETING.ELECTRICAL WIRER [address] [place] [address] Roll Up Operator Internal Medicine 08/14/24 Hot Dip Plating Supervisor Relationship Specialty Start Date End Date Tereso Shaikh MD [address] [place] [address] PCP - General Internal Medicine 02/10/23 Maria Guadalupe Rivers, DIRECTOR OF CASINO MARKETING.ELECTRICAL WIRER [address] [place] [address] Roll Up Operator Internal Medicine 08/14/24 Hot Dip Plating Supervisor Relationship Specialty Start Date End Date Tereso Shaikh MD [address] [place] [address] PCP - General Internal Medicine 02/10/23 Maria Guadalupe Rivers, DIRECTOR OF CASINO MARKETING.ELECTRICAL WIRER [address] [place] [address] Roll Up Operator Internal Medicine 08/14/24 Hot Dip Plating Supervisor Relationship Specialty Start Date End Date Tereso Shaikh MD [address] [facility] [place] [address] PCP - General Internal Medicine 02/10/23 Maria Guadalupe Rivers, DIRECTOR OF CASINO MARKETING.ELECTRICAL WIRER [address] [place] [address] Roll Up Operator Internal Medicine 08/14/24 Hot Dip Plating Supervisor Relationship Specialty Start Date End Date Tereso Shakih MD [address] [facility] [place] [address] PCP - General Internal Medicine 02/10/23 Maria Guadalupe Rivers, DIRECTOR OF CASINO MARKETING.ELECTRICAL WIRER [address] [facility] [place] [address] Roll Up Operator Internal Medicine 08/14/24 Hot Dip Plating Supervisor Relationship Specialty Start Date End Date Tereso Shaikh MD [address] [facility] [place] [address] PCP - General Internal Medicine 02/10/23 Maria Guadalupe Rivers, DIRECTOR OF CASINO MARKETING.ELECTRICAL WIRER [address] [facility] [place] [address] Roll Up Operator Internal Medicine 08/14/24 Hot Dip Plating Supervisor Relationship Specialty Start Date End Date Tereso Shaihk MD [address] [facility] [place] [address] PCP - General Internal Medicine 02/10/23 Maria Guadalupe Rivers, DIRECTOR OF CASINO MARKETING.ELECTRICAL WIRER [address] [facility] [place] [address] Roll Up Operator Internal Medicine 08/14/24 Hot Dip Plating Supervisor Relationship Specialty Start Date End Date Tereso Shaikh MD [address] [facility] [place] [address] PCP - General Internal Medicine 02/10/23 Maria Guadalupe Rivers, DIRECTOR OF CASINO MARKETING.ELECTRICAL WIRER [address] [facility] [place] [address] Roll Up Operator Internal Medicine 08/14/24 Hot Dip Plating Supervisor Relationship Specialty Start Date End Date Tereso Shaikh MD [address] [facility] [place] [address] PCP - General Internal Medicine 02/10/23 Maria Guadalupe Rivers, DIRECTOR OF CASINO MARKETING.ELECTRICAL WIRER [address] [facility] [place] [address] Roll Up Operator Internal Medicine 08/14/24 Hot Dip Plating Supervisor Relationship Specialty Start Date End Date Tereso Shaikh MD [address] [facility] [place] [address] PCP - General Internal Medicine 02/10/23 Maria Guadalupe Rivers, DIRECTOR OF CASINO MARKETING.ELECTRICAL WIRER [address] [facility] [place] [address] Roll Up Operator Internal Medicine 08/14/24 Hot Dip Plating Supervisor Relationship Specialty Start Date End Date Tereso Shaikh MD [address] [facility] [place] [address] PCP - General Internal Medicine 02/10/23 Maria Guadalupe Rivers, DIRECTOR OF CASINO MARKETING.ELECTRICAL WIRER [address] [facility] [place] [address] Roll Up Operator Internal Medicine 08/14/24 Hot Dip Plating Supervisor Relationship Specialty Start Date End Date Tereso Shaikh MD [address] [facility], [place] [address] PCP - General Internal Medicine 02/10/23 Maria Guadalupe Rivers, DIRECTOR OF CASINO MARKETING.ELECTRICAL WIRER [address] [facility] [place] [address] Roll Up Operator Internal Medicine 08/14/24 Hot Dip Plating Supervisor Relationship Specialty Start Date End Date Tereso Shaikh MD [address] [place], [place] [address] PCP - General Internal Medicine 02/10/23 Maria Guadalupe Rivers, DIRECTOR OF CASINO MARKETING.ELECTRICAL WIRER [address] [place] [address] Roll Up Operator Internal Medicine 08/14/24 Hot Dip Plating Supervisor Relationship Specialty Start Date End Date Tereso Shaikh MD [address] [place] [address] PCP - General Internal Medicine 02/10/23 Maria Guadalupe Rivers, DIRECTOR OF CASINO MARKETING.ELECTRICAL WIRER [address] [place] [address] Roll Up Operator Internal Medicine 08/14/24 Hot Dip Plating Supervisor Relationship Specialty Start Date End Date Tereso Shaikh MD [address] [place], [place] [address] PCP - General Internal Medicine 02/10/23 Maria Guadalupe Rivers, DIRECTOR OF CASINO MARKETING.ELECTRICAL WIRER [address] [facility] [place] [address] Roll Up Operator Internal Medicine 08/14/24 Hot Dip Plating Supervisor Relationship Specialty Start Date End Date Tereso Shaikh MD [address] [facility] [place], [place] [address] PCP - General Internal Medicine 02/10/23 Maria Guadalupe Rivers, DIRECTOR OF CASINO MARKETING.ELECTRICAL WIRER [address] [place] [address] Roll Up Operator Internal Medicine 08/14/24 Hot Dip Plating Supervisor Relationship Specialty Start Date End Date Tereso Shaikh MD [address] [facility] [place] [address] PCP - General Internal Medicine 02/10/23 Maria Guadalupe Rivers, DIRECTOR OF CASINO MARKETING.ELECTRICAL WIRER [address] [place] [address] Roll Up Operator Internal Medicine 08/14/24 Hot Dip Plating Supervisor Relationship Specialty Start Date End Date Tereso Shaikh MD [address] [place] [address] PCP - General Internal Medicine 02/10/23 Maria Guadalupe Rivers, DIRECTOR OF CASINO MARKETING.ELECTRICAL WIRER [address] [place] [address] Roll Up Operator Internal Medicine 08/14/24 Hot Dip Plating Supervisor Relationship Specialty Start Date End Date Tereso Shaikh MD [address] [place] [address] PCP - General Internal Medicine 02/10/23 Maria Guadalupe Rivers, DIRECTOR OF CASINO MARKETING.ELECTRICAL WIRER [address] [facility] [place] [address] Roll Up Operator Internal Medicine 08/14/24 Hot Dip Plating Supervisor Relationship Specialty Start Date End Date Tereso Shaikh MD [address] [place] [address] PCP - General Internal Medicine 02/10/23 Maria Guadalupe Rivers, DIRECTOR OF CASINO MARKETING.ELECTRICAL WIRER [address] [place] [address] Roll Up Operator Internal Medicine 08/14/24 Hot Dip Plating Supervisor Relationship Specialty Start Date End Date Tereso Shaikh MD [address] [place] [address] PCP - General Internal Medicine 02/10/23 Maria Guadalupe Rivers, DIRECTOR OF CASINO MARKETING.ELECTRICAL WIRER [address] [place] [address] [facility] Internal Medicine 08/14/24 FOR RECORDS PERTAINING TO PATIENTS WHO [...] BE BASED ON THE PRIMARY CLINICAL RECORDS. [facility]. provides no warranty or guarantee of the accuracy or completeness of information in this document.
[2025-05-11 06:04] LABS: Internal QC Validated? YES +Cl - CLEAR BKGD; Pregnancy, Urine Negative Negative; Record Kit Lot#,Urine Preg 0000947241
[2025-05-11 06:30] LABS: Hematocrit 38.0 % (37-47); Hemoglobin 13.2 g/dL (12.0-15.0); Mean Corp Hgb Conc 34.7 g/dL (32-36); Mean Corpuscular Volume 88.4 fL (81-99); Mean Platelet Vol. 10.4 fl (6.2-12.0); Platelet Count 240 K/mm3 (150-450); RBC Distribution Width CV 13.3 % (11.6-14.6); RBC Distribution Width SD 43.8 fl (35.1-43.9); Red Blood Count 4.30 M/mm3 (4.2-5.4); White Blood Count 6.9 K/mm3 (4.4-11.0)
[2025-05-11] MEDS: Lactated Ringers 1,000 ML 15 ML IV (06:31)
--- NOTE | 2025-05-11 06:51 | PCM.PRE.AN2 ---
ASA Classification* ASA Classification ASA Classification: 3 Assessment & Plan Anesthesia* Anesthesia Assessment Anesthesia Assessment: Discussed sedation and/or anesthesia options, risks, benefits, and alternatives with patient/parents/legal guardian/POA. Questions invited. The patient/parents/legal guardian/POA seems to understand and agrees to proceed with anesthesia plan. Reviewed the physical assessment, medical history, allergy history and patient home medications list prior to surgery/procedure/anesthetic and documented any changes. Performed airway and anesthesia risk assessments. Anesthesia Type Anesthesia Type: General History Source History Obtained from:: Patient and Chart Anesthesia Focused Assessment* Temperature: 97.7 F Pulse Rate: 58 Blood Pressure: 108/63 Respiratory Rate: 16 Pulse Ox: 100 Oxygen Delivery Method: Room Air Airway Assessment Mouth opens: >3 cm Mallampati Score: I Teeth Condition: Missing (Patient is missing a right upper molar. Rest are tight.) Neck Range of motion (ROM): Limited ROM (Slight Decrease) Labs Anesthesia Preop lab: CBC WBC 6.9 K/mm3 (4.4-11.0) 05/11/25 06:21 05/11/25 RBC 4.30 M/mm3 (4.2-5.4) 05/11/25 06:21 05/11/25 Hgb 13.2 g/dL (12.0-15.0) 05/11/25 06:21 05/11/25 Hct 38.0 % (37-47) 05/11/25 06:21 05/11/25 Plt Count 240 K/mm3 (150-450) 05/11/25 06:21 05/11/25 CHEMISTRY Potassium 4.2 mmol/L (3.3-5.1) 03/16/25 23:05 03/16/25 Sodium 136 mmol/L (133-145) 03/16/25 23:05 03/16/25 BUN 8 mg/dL (4-19) 03/16/25 23:05 03/16/25 Creatinine 0.63 mg/dL (0.70-1.20) L 03/16/25 23:05 03/16/25 Glucose 104 mg/dL (70-99) H 03/16/25 23:05 03/16/25 TSH 1.06 uIU/mL (0.358-3.74) 12/26/14 16:17 12/26/14 COAG PT 13.6 SECONDS (11.7-14.9) 03/16/25 23:05 03/16/25 HCG, Quant 966 mIU/mL (1-3) H 12/23/21 21:10 12/23/21 Urine Test Negative Negative 05/11/25 05:55 05/11/25 Pre-Assessment Diagnosis/Proposed Procedure Planned Operative Procedure(s): LAP BILAT SALPINGECTOMY Anesthesia History 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 When Was Last Pacemaker Check QUESTION #4 FULL TEXT: You/Your Family Experience fever (hyperthermia) with Anesthesia Last Oral Intake Last Oral intake: Last Oral Intake NPO since 00:00 05/11/25 06:12 Meds taken in AM with sips of No 05/11/25 06:12 water? Meds patient instructed to take am of surgery PONV PONV - internet sales manager: PONV - internet sales manager Female Yes 05/04/25 11:13 HX of Motion Sickness No 05/04/25 11:13 HX of N/V After Surgery No 05/04/25 11:13 Non-Smoker No 05/04/25 11:13 Duration of Surgery greater No 05/04/25 11:13 than 60 minutes Number of Risk Factors 1 05/04/25 11:13 PONV Score Low Risk 05/04/25 11:13 Height & Weight Height & Weight: Anesthesia: Height & Weight Height 5 ft 4 in 05/11/25 06:12 Weight: 87 kg 05/11/25 06:12 Body Mass Index (BMI) 32.9 05/11/25 06:12 Respiratory Assessment Respiratory Assessment - internet sales manager: Respiratory Tract Infection Hx - internet sales manager Hx Respiratory Tract Infection No 05/04/25 11:13 STOP Sleep Apnea STOP Sleep Apnea - internet sales manager: STOP Sleep Apnea - internet sales manager Hx Hypertension No 05/04/25 11:13 Hx Sleep Apnea No 05/04/25 11:13 CPAP No 02/03/15 00:09 BIPAP No 02/03/15 00:09 Do you snore loudly (louder Yes 05/04/25 11:13 than talking or can be heard Do you often feel tired/ Yes 05/04/25 11:13 fatigued/ sleepy during daytime? Has anyone observed you stop No 05/04/25 11:13 breathing during sleep? STOP Results Positive 05/04/25 11:13 QUESTION #5 FULL TEXT : Do you snore loudly (louder than talking or can be heard through closed doors)? 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 Specify any problems Hx of Preganancy in last 3 Yes 05/04/25 11:13 Months Nurse Filling Out Transfusion DSCHRIBER 05/04/25 11:13 & Questions: Date: 05/04/25 05/04/25 11:13 Time: 11:14 05/04/25 11:13 Patient unable to answer at this time (ie. confused, unrespo /Reproduction History /Reproductive History - internet sales manager: /Reproductive Hx- internet sales manager Hx Now No 05/04/25 11:13 Gestational Age (in weeks): EDC: Hx Hx Para Hx Section SAB No 05/04/25 11:13 Active Medications Active Medications: Current Medications Generic Name Dose Route Start Last Admin Trade Name Jace PRN Reason Stop Dose Admin Acetaminophen 1,000 mg 05/11/25 11:30 05/11/25 06:29 Acetaminophen 500 Mg Tablet PO 05/11/25 11:31 1,000 mg PREOP ONE Administration Celecoxib 200 mg 05/11/25 11:30 05/11/25 06:29 Celecoxib 200 Mg Capsule PO 05/11/25 11:31 200 mg PREOP ONE Administration Lactated Ringer's 1,000 mls @ 15 mls/hr 05/11/25 06:15 05/11/25 06:31 IV 15 mls/hr .Q48H ALBERT Administration PFSH Medical History Wears glasses History of ADHD Marijuana use Substance abuse Low iron Hepatitis Back pain Syncope Shortness of breath on exertion Smoker Antoine de la Tourette disorder Substance induced mood disorder Gonorrhea affecting MRSA infection HPV (human papilloma virus) infection Genital herpes affecting Chlamydia infection affecting Anxiety Home Medications ?Medication ?Instructions ?Recorded ?Last Taken ?Type vitamins-iron fumarate 65 1 tab PO DAILY 03/17/25 Unknown History mg iron-folic acid 1 mg tablet (Mynatal-Z) valacyclovir 500 mg tablet 1,000 mg PO DAILY HSV 03/17/25 Unknown History (Valtrex) sertraline 25 mg tablet 25 mg PO DAILY 05/04/25 Unknown History Allergy/AdvReac Type Severity Reaction Status Date / Time latex Allergy Hives Verified 05/11/25 06:11 shellfish derived Allergy Anaphylaxis Verified 05/11/25 06:11 Family History Other Lupus Myocardial infarction Surgical History History of surgery Social History Smoking Status: Current every day smoker tobacco type: cigarettes alcohol intake: never substance use type: does not use what type of physical activity do you participate in: walking Review of Systems (Anesthesia) ROS Narrative System reviewed and no additional complaints, except as documented.
--- NOTE | 2025-05-11 07:27 | PCM.HP.BLA ---
History and Physical Date of Admission: 05/11/25 Presents for tubal sterilization. No c/o today Allergies latex/shelfish PMH- TCH use, hist hep C- resolved, HSV, Depression, h/o substance abuse disorder, PE_ awake, alert, NAD abd- soft, nontender lungs CTAB heart S1s2 RRR Assessment & Plan Assessment/Plan (1) Sterilization: PLAN: r/b/a to laparscopic tubal sterilization reviewed, patient desires to proceed.
--- NOTE | 2025-05-11 07:30 | FALS_PTH ---
PATIENT: AIRAM PRICE LOC: [facility] U#:[id number] AGE/SX: 30/F ROOM: RE05/11/[address]: Dr. Kayla Mas MD : 1995 BED: DIS: 05/11/2025 SPEC #: [id number] RECD: 05/11/25 10:43 STATUS: TJ REBuffy #: [id number] JODY: 05/11/25 07:[address]: Kayla Mas DEPT: SURGICAL PATHOLOGY RECD BY: Osmar Stein ENTERED: 05/11/25 15:07 SP TYPE: FALL TUBES OTHR DR: Dr. Tereso Shaikh MD Tissues: A - Fallopian tube Procedures: Surgery Specimen Level II HEADER OPERATION: Laparoscopic bilateral salpingectomy PRE-OP DIAGNOSIS: Request sterilization TISSUE SUBMITTED: A- Bilateral fallopian tubes *left fallopian tube is in 2 pieces * MICROSCOPIC DIAGNOSIS A. Fallopian tubes, laparoscopic bilateral salpingectomy: No specific pathologic change (complete luminal cross-section confirmed) x2. MICROSCOPIC DESCRIPTION Slides are reviewed. GROSS DESCRIPTION A. Received in formalin labeled with the patient's name and date of . Designated as bilateral fallopian tubes, left tube in 2 pieces are 2 healy-pink to purple-red fimbriated fallopian tubes measuring 7.9 x 0.6 cm (left) and 10.4 x 0.6 cm (right). No definitive lesions are identified. Director Systems sections are submitted in 2 cassettes as follows: A1: Left fallopian tubeA2: Right fallopian tube OR 05/11/2025 CPT:57938
[2025-05-11] MEDS: Midazolam 2 MG/2 ML Syringe IV (07:32)
[2025-05-11] MEDS: Lidocaine 1% (5 ml sdv) 5 ML Vial IV (07:36)
--- NOTE | 2025-05-11 07:49 | PCM.DC ---
Discharge Instructions DC O2, CPAP, BIPAP needs Home O2 Discharge instructions: No Dressing / Incision Discharge Activity: May Drive (in 2 days or as tolerated) and May Shower Return to work on:: 05/14/25 May shower in (days): 1 May resume sexual activity in: 1 week Dressing / Incision Call your doctor if your incision/area has: Sudden Increased Bleeding and Foul Smelling Discharge Call your doctor if you observe: Fever of 101 or Higher Cleanse incision/area with: Soap & Water (Your incisions have skin glue and it can get wet. Leave on until it falls off) Follow Up Care Please Follow Up With: Kayla Mas MD When: You do not need a postop visit. Call or send a [employer] message as needed. [phone] Test Results: Test results from this visit will be discussed in further detail at your follow-up appointment, if applicable. Discharge Plan Admission Primary Reason for Your Visit: tubal sterilization Attending Provider: Kayla Mas Primary Care Provider: Tereso Shaikh Instructions Print Language: Turkish Discharge Orders/Prescriptions Prescriptions: New acetaminophen [Acetaminophen Extra Strength] 500 mg tablet 1,000 mg PO Q6H PRN (Reason: fever or pain) 20 Days Qty: 90 0RF ibuprofen 600 mg tablet 600 mg PO Q6H PRN (Reason: Pain) 20 Days Qty: 60 1RF Continued Mynatal-Z 65 mg iron- 1 mg tablet 1 tab PO DAILY valacyclovir [Valtrex] 500 mg tablet 1,000 mg PO DAILY sertraline 25 mg tablet 25 mg PO DAILY Referrals / Follow Up: Care Physician,No Primary [Non-Staff] - Disposition Disposition (needs filled in before D/C Order can be placed): Home, Self Care
[2025-05-11] MEDS: fentaNYL 100 MCG/2 ML Ampul IV (08:01)
[2025-05-11] MEDS: Ketorolac 30 MG/ML Syringe IV (08:26)
--- NOTE | 2025-05-11 08:27 | PCM.OPRPT ---
Problems Associated Problem List Diagnoses (1) Sterilization: Operative Report (Standard) Operative Information Date of Procedure: 05/11/25 Pre-Operative Diagnosis: sterilization request Post-Operative Diagnosis: same Surgery/Procedure Performed: laparoscopic bilateral salpingectomy wedding makeup artist: Yes Electrical Linesworker: Fariha Calderon MS3 Tasks completed by first press operator: Closing, Trocar and Retracting Additional research lab assistant?: No Type of Anesthesia: General RN Documented Start/Stop Times: Operation Date: 05/11/25 07:30 Case Time Into Pre-Op 05/11/25 06:01 Procedure Start Time: 08:00 Procedure Stop Time: 08:26 Select all DRAINS/GRAFTS/IMPLANTS that apply: None Special Medications: none Estimated Blood Loss: 10 Fluids Replaced: 800 Specimen collected: Yes Description of specimen(s) removed: bilateral fallopian tubes Description of surgery: The patient was taken to the operating room where she was prepped and draped in the dorsolithotomy position. A weighted speculum was placed in the vagina and the anterior lip of the cervix was grasped with a tenaculum. The Cherry uterine manipulator was placed and the remainder of the instruments were removed from the vagina. Attention was turned to the abdomen. All port sites were infiltrated with 0.5% Marcaine before skin incisions were made. A 5 mm intraumbilical incision was made. The anterior abdominal wall was tented up with 2 towel clamps while a 5 mm blade less trocar and sleeve were directly inserted. Intraperitoneal placement was confirmed with the laparoscope. The pneumoperitoneum was created and the underlying abdominal contents were intact. The patient was placed in Trendelenburg. Right and left lower quadrant ports were placed under direct visualization lateral to the inferior epigastric vessels. The bowel was swept away and the above findings were noted. The Enseal device was used to clamp seal and transect the antimesenteric portions of the right tube to the cornual insertion of the uterus. The tube was amputated from the uterus and the pedicles were all confirmed to be hemostatic. The same procedure was performed on the contralateral side. The specimens were brought out through a 5 mm port. The pedicles were again examined and found to be hemostatic. The lateral ports were removed under direct visualization and no active bleeding was noted. The pneumoperitoneum was released. The skin incisions were closed with Monocryl suture in a subcuticular fashion and skin glue . The vaginal instruments were removed and the vaginal sweep was completed by me. The procedure was performed by me with assistance other than as dictated above. All sponge and needle counts were correct and the patient was taken to the recovery room in stable condition. Surgical Findings: normal uterus, tubes, ovaries and cervix Complications Complications: No Admit VTE Documentation VTE Present on Admission: No VTE Mechan Device Prophylaxis: SCD's VTE Pharm Prophylaxis ordered?: No Reason prophylaxis not ordered: Procedure Not Indicated
--- NOTE | 2025-05-11 08:37 | PCM.POST.ANE ---
Anesthesia: Postop Eval I Current Vital Signs Temperature: 97.6 F Pulse Rate: 57 Blood Pressure: 113/65 Respiratory Rate: 18 Pulse Ox: 95 Oxygen Delivery Method: Room Air Assessment Airway patent: Yes Spontaneous unlabored respirations: Yes Mental status: Awake and Calm nausea: No Vomiting: No Anesthesia Complication: No Fluid Hydration Crystalloid volume administer (ml): 800 Total IV fluid infused: 800 Progress Note Anesthesia document: Postop Eval 1 completed: Yes
--- NOTE | 2025-05-11 08:38 | PCM.POST.ANE ---
Anesthesia: Postop Eval I Current Vital Signs Temperature: 97.6 F Pulse Rate: 57 Blood Pressure: 113/65 Respiratory Rate: 18 Pulse Ox: 95 Assessment Airway patent: Yes Spontaneous unlabored respirations: Yes nausea: No Vomiting: No Anesthesia Complication: No Fluid Hydration Crystalloid volume administer (ml): 800 Total IV fluid infused: 800 Progress Note Anesthesia document: Postop Eval 1 completed: Yes
--- NOTE | 2025-05-11 09:11 | EKG12_ITS ---
Test Reason : Blood Pressure : */* mmHG Vent. Rate : 40 BPM Atrial Rate : 40 BPM P-R Int : 156 ms QRS Dur : 82 ms QT Int : 478 ms P-R-T Axes : 35 83 58 degrees QTcB Int : 389 ms Marked sinus bradycardia Abnormal ECG No previous ECGs available Confirmed by Jayy Cagle ([id number]), health editor FRAN FERMIN ([id number]) on 05/15/2025 6:11:26 AM Referred By: Kayla Mas Confirmed By: Jayy Cagle
--- NOTE | 2025-05-11 09:15 | SUR.PHASEI ---
HR and Bp have been low in PACU, difficult to assess as pt stated felt dizzy after MS dose, denies CP or lightheadedness, Reports that is not unusual for her to have Bp drop into the 70's and her not feel it Rates ABD pain /10. Has had Celebrex and Tyleon preop - see NOV, Intraop given Toradol 30mg. Nausea resolved since zofran in PACU. TC to Dr Bhatt to inform of above. New order for Robinol 0.2mg IV for HR and BP also obtained 12 lead EKg with readings found of marked sinus amie
--- NOTE | 2025-05-11 10:56 | PCM.POSTANE2 ---
Anesthesia Postop Eval I Sum Postop Eval Completion status Anesthesia document: Postop Eval 1 completed: Yes Anesthesia Postop Eval I Summary Anesthesia Postop Eval I Summary: Anesthesia Postop Eval I: Assessment Summary Airway patent Yes 05/11/25 08:39 COMPENSATION COORDINATOR.ACAR Spontaneous unlabored Yes 05/11/25 08:39 COMPENSATION COORDINATOR.ACAR respirations Mental status nausea No 05/11/25 08:39 COMPENSATION COORDINATOR.ACAR Vomiting No 05/11/25 08:39 COMPENSATION COORDINATOR.ACAR Anesthesia Postop Eval I: Fluid Summary Crystalloid volume administer 800 05/11/25 08:39 COMPENSATION COORDINATOR.ACAR (ml) Colloids volume administered ( ml) Blood Product volume administered (ml) Total IV fluid infused 800 05/11/25 08:39 COMPENSATION COORDINATOR.ACAR Anesthesia Postop Eval I: Summary Notes Anesthesia Complication No 05/11/25 08:39 COMPENSATION COORDINATOR.ACAR Anesthesia Complication Comment: Post-operative progress note Anesthesia: Postop Eval II Evaluation Mental status: Awake and Calm Pain Level: 4 nausea: No Vomiting: No Progress Note Post-operative progress note: In the recovery room patient was noted to be in significant bradycardia. A EKG was done which showed marked sinus bradycardia at a 40 bpm. In the past year the patient seems to be in the 50s to 60s. Never quite this low. Blood pressures are also somewhat decreased 85/43 and 83/49. Robinul 0.2 mg was given IV with return of heart rates into the 50s and mean blood pressures greater than 70 for the rest of PACU stay. Patient is okay to be DC'd from PACU. Patient does have a history of marijuana use as recently as yesterday. It is unclear what effect this may have had on her vital signs. Complications Anesthesia Complication: No
== END 2025-05-11 10:43 | disposition home or self-care (01) ==
LOC: SDC 05:44 → AC 05:45
PROVIDERS: Anesthesiology; PCP Internal Medicine; Referring Provider Obstetrics & Gynecology; Visit Provider Obstetrics & Gynecology
PROC: (CPT 58661; principal; 2025-05-11 07:15)
DX: Z30.2 Encounter for sterilization (principal); F17.210 Nicotine dependence, cigarettes, uncomplicated
CPT/HCPCS: 58661; 00840; 81025; 85027; 88302; 93005; J2405